=== PATIENT | female | born 1975 | race Caucasian/White ===

== ENCOUNTER 2019-09-18 12:58 | Outpatient (CLI) | payer OTHER, SELFPAY ==
[2019-09-18 13:13] LABS: Hematocrit 42.2 % (35.0-49.0); Hemoglobin 13.6 g/dL (12.0-15.0); Mean Corpuscular HGB Conc 32.2 g/dL (32.0-36.0); Mean Corpuscular Hemoglobin 28.9 pg (27.0-31.0); Mean Corpuscular Volume 89.8 fL (78.0-102.0); Mean Platelet Volume 10.2 fl (9.2-11.8); Platelet Count Result 224 K/mm3 (150-420); Red Cell Distribution Width 15.1 % (11.6-14.4); White Blood Count 8.8 K/mm3 (4.8-10.8)
[2019-09-18 13:25] LABS: Hemoglobin A1C 6.2 % (<5.7)
[2019-09-18 13:57] LABS: Alanine Aminotransferase 27 U/L (14-59); Albumin Level 3.1 g/dL (3.4-5.0); Alkaline Phosphatase 106 U/L (46-116); Anion Gap 16.2 mmol/L (7-16); Aspartate Amino Transferase 21 U/L (15-37); Bilirubin,Total 0.3 mg/dL (0.00-1.00); Blood Urea Nitrogen 16 mg/dL (7-18); Calcium 8.4 mg/dL (8.5-10.1); Carbon Dioxide 25 mmol/L (21-32); Chloride 106 mmol/L (98-108); Cholesterol 165 mg/dL (0-200); Estimated Glomerular Filt Rate > 60; Glucose 119 mg/dL (70-99); HDL Direct 54 mg/dL (40-60); LDL Cholesterol Calculated 96 mg/dL (<130); Osmolality Calculated 298 mOsm/kg (285-295); Potassium 4.2 mmol/L (3.5-5.1); Sodium 143 mmol/L (136-145); Total Protein 7.6 g/dL (6.4-8.2); Triglycerides 77 mg/dL (0-150)
[2019-09-18 14:13] LABS: Erythrocyte Sedimentation Rate 38 mm/hr (0-15)
[2019-09-21 12:02] LABS: Vitamin D 25 Hydroxy 28 ng/mL (30-100)
== END 2019-09-18 12:59 | disposition home or self-care (01) ==
LOC: CHSLAB 13:01
PROVIDERS: PCP Family Medicine; Visit Provider Family Medicine
DX: E78.5 Hyperlipidemia, unspecified (principal); E55.9 Vitamin D deficiency, unspecified; R53.83 Other fatigue; E03.9 Hypothyroidism, unspecified; M25.50 Pain in unspecified joint; I10 Essential (primary) hypertension; E11.9 Type 2 diabetes mellitus without complications
CPT/HCPCS: 36415; 80053; 80061; 82306; 83036; 84443; 85027; 85652

== ENCOUNTER 2023-01-08 23:16 | Emergency (ER) | payer MEDICARE, SELFPAY ==
[2023-01-08] VITALS (7 sets, daily range): BP systolic 95–129; BP diastolic 33–52; PULSE 86–88; RESP 22–23; O2SAT 96–100
--- NOTE | ~2023-01-08 | XR_ITS ---
Portable chest x-ray Comparison: 09/22/2018 Clinical History: Shortness of breath Findings: Mild pulmonary edema changes are present. No pleural effusion or pneumothorax. Cardiomedi astinal silhouette is stable. Bones and soft tissues are unremarkable. Impression: Mild pulmonary edema. Reviewed, dictated and finalized at [facility]. Impression: Mild pulmonary edema.
--- NOTE | 2023-01-08 23:20 | ECG_ITS ---
Measurements Intervals [place] Rate: 85 P: 100 NH: 191 QRS: -47 QRSD: 130 T: 12 QT: 366 QTc: 438 Interpretive Statements SINUS RHYTHM LEFT ANTERIOR FASCICULAR BLOCK [QRS AXIS <= -45, QR IN I, RS IN II] POSSIBLE ANTERIOR MYOCARDIAL INFARCTION , PROBABLY OLD [30 ms Q WAVE IN V3/V4, OR R < 0.2 mV IN V4] ABNORMAL ECG NO PREVIOUS ECG AVAILABLE FOR COMPARISON Electronically Signed On 01-13-2023 9:13:49 CDT by Moisés Meade M.D.
--- NOTE | 2023-01-08 23:29 | ED.GENADULT ---
HPI - General Adult General Chief complaint: Altered Mental Status Stated complaint: altered mental status Time Seen by Provider: 01/08/23 23:18 History of Present Illness HPI narrative: 47yo woman with extreme obesity, diabetes mellitus, hypertension, and most recently and significantly severe depression and, per EMS talking with pt's family, declining interest in her own medical care, brought by EMS to our ED critically ill. Pt has fallen several times in the last week. Family has been urging her to seek medical care but she declines. Numerous calls to EMS with pt declining to be transported each time so EMS know pt well at this point. Tonight, pt was confused, lethargic, had fallen again. EMS found a small puddle of blood underneath the patient but noted no actively bleeding skin site. Pt blood glucose in the 40s for which EMS gave D10. Glucose on arrival to ED is 60. Pt disoriented and unable to describe symptoms or if she is in any pain. Broad septic workup ordered. Additional dextrose fluids ordered. Radiology consulted and confirms that pt is both too heavy for our table (500 lb weight limit - pt is 523 pounds) and will not fit the aperture of the scanner. Callout to [facility] trauma center as pt is in need of workup for her numerous falls and encephalopathy and needs more staff and facility resources than we possess. Declined by [facility]. Callout to [facility] ED accepted by Dr. Saenz for time critical trauma. Related Data Home Medications Medication Instructions Recorded Confirmed bupropion HCl 150 mg 24 hr tablet, 150 mg PO QAM 11/08/20 01/09/23 extended release Allergies Allergy/AdvReac Type Severity Reaction Status Date / Time Sulfa (Sulfonamide Allergy Mild HIVES, Verified 01/08/23 23:58 Antibiotics) SWELLING sulfamethoxazole Allergy Mild HIVES, Verified 01/08/23 23:58 SWELLING sulfamethizole Allergy Unknown Hives Verified 01/08/23 23:58 trimethoprim Allergy Unknown Hives Verified 01/08/23 23:58 Review of Systems Review of Systems: ROS unobtainable: Yes unobtainable due to medical condition and unobtainable due to mental status PMFSH Past Medical History Medical History Anxiety Essential (primary) hypertension H/O adenomatous polyp of colon Hypertension associated with diabetes Hypothyroidism, unspecified Idiopathic peripheral neuropathy Irritable bowel syndrome with diarrhea Lymphedema of both lower extremities Magnesium deficiency Moderate major depression Morbid obesity Psoriasis Stasis dermatitis Type 2 diabetes mellitus without complications Vitamin B12 deficiency Vitamin D deficiency Family History Family History Mother Hypertension Sibling Hypertension Family history of congestive heart failure Other Family history of arthritis Social History Social History Smoking status: Never smoker Second hand tobacco smoke exposure: No Alcohol intake: never Substance use: never Substance use type: does not use Lack of Transportation: No Lack of Food: Never True Current Housing: I Have Housing Concerned About Future Housing: No Difficulty Paying Gas/Electric Bills: No Difficulty Paying for Meds: No Currently Unemployed: No Education: High School Diploma/GED Difficulty w/ Childcare or Family Care: No Gender identity (if verbalized by the patient): Female Spiritual care concerns: No Agree to blood products: Yes Exam Const: General: confusion and ill appearing Nutritional Appearance: obese Orientation/consciousness: No patient oriented x3 Limitations: altered mental status HENMT: Mouth: Yes dry mucous membranes Eyes: Conjunctivae: conjunctivae normal Pupils: Equal, round and reactive pupils present Other: pt arouses to voice but regards only br
[2023-01-08 23:36] LABS: Basophils Absolute Auto 0.03 K/mm3 (0.00-0.10); Basophils Percent Auto 0.3 % (0.0-1.0); Eosinophils Absolute Auto 0.02 K/mm3 (0.02-0.50); Eosinophils Percent Auto 0.2 % (1.0-6.0); Hematocrit 36.2 % (35.0-49.0); Hemoglobin 10.5 g/dL (12.0-15.0); Immature Granulocyte Absolute 0.07 K/mm3 (0.00-0.00); Immature Granulocyte Percent A 0.6 % (0.0-0.0); Lymphocytes Absolute Auto 0.83 K/mm3 (1.10-4.50); Mean Corpuscular Hemoglobin 25.1 pg (27.0-31.0); Mean Corpuscular Volume 86.6 fL (78.0-102.0); Mean Platelet Volume 10.4 fl (9.2-11.8); Monocytes Absolute Auto 0.81 K/mm3 (0.10-0.90); Monocytes Percent Auto 6.8 % (2.0-11.0); Neutrophils Absolute Auto 10.1 K/mm3 (1.7-7.2); Neutrophils Percent Auto 85.1 % (50.0-70.0); Nucleated Red Blood Cells Absolute Auto 0.02 K/mm3 (0.00-0.00); Nucleated Red Blood Cells Perc 0.2 % (0-0.0); Platelet Count Result 202 K/mm3 (150-420); Red Blood Count 4.18 M/mm3 (4.20-5.40); Red Cell Distribution Width 18.7 % (11.6-14.4); White Blood Count 11.9 K/mm3 (4.8-10.8)
[2023-01-08 23:50] LABS: Lactic Acid Reflex 0.9 mmol/L (0.4-2.0)
[2023-01-08 23:51] LABS: HCO3 ABG 24.1 mmol/L (23-29); Oxygen Content ABG 15.5 %vol (16.0-22.0); Oxygen Saturation ABG 93.9 % (95-97); Oxyhemoglobin 92.8 % (94-100); PCO2 ABG 64.9 mmHg (35-45); PO2 ABG 83.6 mmHg (80-90); Total Hemoglobin 11.8 g/dL (12.0-18.0); pH ABG 7.19 (7.35-7.45)
[2023-01-08 23:52] LABS: Device NASAL CANNULA; Modified Allen's Test Pass; Site Drawn RIGHT RADIAL
[2023-01-08 23:53] LABS: Alanine Aminotransferase 24 U/L (14-59); Albumin Level 2.5 g/dL (3.4-5.0); Alkaline Phosphatase 98 U/L (46-116); Anion Gap 7 mmol/L (8-16); Aspartate Amino Transferase 22 U/L (15-37); Bilirubin,Total 0.4 mg/dL (0.00-1.00); Blood Urea Nitrogen 65 mg/dL (7-18); Calcium 7.8 mg/dL (8.5-10.1); Carbon Dioxide 27 mmol/L (21-32); Chloride 104 mmol/L (98-108); Estimated CRCL calculation 22 ml/min; Estimated Glomerular Filt Rate 8; Glucose 60 mg/dL (70-99); Magnesium 2.7 mg/dL (1.8-2.4); NT Pro B Type Natriuretic Pept 1405 pg/mL (0-125); Osmolality Calculated 302 mOsm/kg (285-295); Potassium 5.2 mmol/L (3.5-5.1); Sodium 138 mmol/L (136-145); Total Protein 7.5 g/dL (6.4-8.2)
[2023-01-09] VITALS: PULSE 87; O2SAT 94
[2023-01-09 00:02] VITALS: BP 115/46; PULSE 86; RESP 22; O2SAT 96
[2023-01-09] MEDS: DEXTROSE 5% 1,000 ML 1,000 ML 100 ML IV CONT (00:09)
[2023-01-09] MEDS: SODIUM CHLORIDE 0.9% IV 1,000 ML 999 ML IV CONT (00:09)
[2023-01-09 00:16] VITALS: BP 106/78; PULSE 86; RESP 22; O2SAT 98
[2023-01-09 00:28] VITALS: BP 106/78; PULSE 89
[2023-01-09] MEDS: NOREPINEPHRINE 8 MG/D5W 250 ML 8 MG/250 ML BAG 9.38 MG IV CONT (00:28)
[2023-01-09 00:30] VITALS: PULSE 87; RESP 22; O2SAT 97
--- NOTE | 2023-01-09 00:34 | PC.NURSE ---
Pt mental status has improved. GCS of 14 at this time.
[2023-01-09] MEDS: cefTRIAXone 1 GM, LIDOCAINE HCL 1% LOCAL INJ 2.1 ML IM (00:36)
[2023-01-09] MEDS: DEXTROSE 50% 25 GM/50 ML SYRINGE IV PUSH (00:49)
[2023-01-09 01:00] VITALS: BP 113/55; PULSE 83; RESP 22; TEMP 36.4; O2SAT 95
--- NOTE | 2023-01-15 12:55 | PC.NURSE ---
Final blood culture reports x 2 show no growth after 5 days no change in plan of care.
[2023-01-21 17:26] LABS: Glucose Point of Care 52 mg/dl (65-105)
[2023-01-21 17:26] LABS: Glucose Point of Care 66 mg/dl (65-105)
== END 2023-01-09 01:00 | disposition short-term general hospital (02) ==
PROVIDERS: Emergency Provider Emergency Medicine
DX: E11.649 Type 2 diabetes mellitus with hypoglycemia without coma (principal); I95.9 Hypotension, unspecified; E86.0 Dehydration; R09.02 Hypoxemia; M54.50 Low back pain, unspecified; F32.A Depression, unspecified; I10 Essential (primary) hypertension; E03.9 Hypothyroidism, unspecified; E66.9 Obesity, unspecified; Z68.45 Body mass index [BMI] 70 or greater, adult; W19.XXXA Unspecified fall, initial encounter
CPT/HCPCS: 36415; 36600; 71045; 80053; 82805; 82948; 83605; 83735; 83880; 84145; 85025; 87040; 93005; 96365; 96372; 96375; 99291; J0696; J7030; J7070

== ENCOUNTER 2023-02-19 18:56 | Emergency (ER) | payer MEDICARE, SELFPAY ==
--- NOTE | ~2023-02-19 | XR_ITS ---
EXAMINATION: XR foot RT min 3V DATE: 02/19/2023 19:35 INDICATION: Right foot pain. TECHNIQUE: 3 views of right foot were obtained. COMPARISON: None. FINDINGS: Bone alignment is normal. No fracture. There is mild midfoot osteoarthritis. There are enth esophytes at the posterior and plantar aspects of calcaneal tuberosity. There is soft tissue swelling of the foot and lower leg. IMPRESSION: 1. Mild midfoot osteoarthritis. Reviewed, dictated and finalized at location E.
[2023-02-19 19:14] VITALS: BP 139/60; PULSE 80; RESP 18; TEMP 36.8; O2SAT 94
--- NOTE | 2023-02-19 19:21 | ED.EXTPRO ---
HPI - Extremity Problem General Chief complaint: Extremity Problem,Nontraumatic Stated complaint: RLE SWELLING AND PAIN Time Seen by Provider: 02/19/23 19:11 Source: patient and EMS Mode of arrival: EMS Limitations: no limitations History of Present Illness HPI Narrative: 48 years old white female came from nursing facility with pain at the bottom of the right foot started few days ago. The staff at the nursing facility were anxious about the possibility of blood clot. Patient denies any fever, chills, nausea, vomiting, shortness of breath, chest pain. History of lymphedema bilaterally and morbid obesity. Related Data Home Medications Medication Instructions Recorded Confirmed bupropion HCl 150 mg 24 hr tablet, 150 mg PO QAM 11/08/20 01/21/23 extended release Allergies Allergy/AdvReac Type Severity Reaction Status Date / Time Sulfa (Sulfonamide Allergy Mild HIVES, Verified 01/08/23 23:58 Antibiotics) SWELLING sulfamethoxazole Allergy Mild HIVES, Verified 01/08/23 23:58 SWELLING sulfamethizole Allergy Unknown Hives Verified 01/08/23 23:58 trimethoprim Allergy Unknown Hives Verified 01/08/23 23:58 Review of Systems Review of Systems: All systems reviewed & are unremarkable except as noted in HPI and below PMFSH Past Medical History Medical History Anxiety Essential (primary) hypertension H/O adenomatous polyp of colon Hypertension associated with diabetes Hypothyroidism, unspecified Idiopathic peripheral neuropathy Irritable bowel syndrome with diarrhea Lymphedema of both lower extremities Magnesium deficiency Moderate major depression Morbid obesity Psoriasis Stasis dermatitis Type 2 diabetes mellitus without complications Vitamin B12 deficiency Vitamin D deficiency Family History Family History Mother Hypertension Sibling Hypertension Family history of congestive heart failure Other Family history of arthritis Social History Social History Smoking status: Never smoker Second hand tobacco smoke exposure: No Alcohol intake: never Substance use: never Substance use type: does not use Lack of Transportation: No Lack of Food: Never True Current Housing: I Have Housing Concerned About Future Housing: No Difficulty Paying Gas/Electric Bills: No Difficulty Paying for Meds: No Currently Unemployed: No Education: High School Diploma/GED Difficulty w/ Childcare or Family Care: No Gender identity (if verbalized by the patient): Female Spiritual care concerns: No Agree to blood products: Yes Exam Narrative: General appearance: Well-developed, well-nourished, morbidly obese Skin: Normal color, chronic stasis dermatitis of the lower extremity bilaterally distally, no discharge. Extensive lymphedema of the lower extremity bilaterally Chest and respiratory: Airway patent, no respiratory distress, no accessory muscle use Heart: Regular rate/rhythm Vascular: Normal peripheral pulses, normal capillary refill. Musculoskeletal: Normal range of motion, right foot showed 2 spots of bruises, 2 x 2 cm, 3 x 2 cm at the bottom, tender to touch, no fluctuation, no discharge, dark coloration. Left foot showed no bruises at the bottom. Neurologic: Alert and oriented ?3, [place] is normal as tested, no gross motor deficit Course Reevaluation(s) Reevaluation #1: No new changes compared to on arrival to the ED Date: 02/19/23 Time: 19:28 Vital Signs Vital signs: Vital Signs Temperature 36.8 C 02/19/23 19:14 Pulse Rate 80
== END 2023-02-19 22:29 ==
PROVIDERS: Emergency Provider Emergency Medicine; PCP Family Medicine
DX: M79.671 Pain in right foot (principal); I87.2 Venous insufficiency (chronic) (peripheral); I89.0 Lymphedema, not elsewhere classified; I15.2 Hypertension secondary to endocrine disorders; E03.9 Hypothyroidism, unspecified; E11.42 Type 2 diabetes mellitus with diabetic polyneuropathy; E66.01 Morbid (severe) obesity due to excess calories; E53.8 Deficiency of other specified B group vitamins; E55.9 Vitamin D deficiency, unspecified; E61.2 Magnesium deficiency; K58.0 Irritable bowel syndrome with diarrhea; F41.9 Anxiety disorder, unspecified; F32.9 Major depressive disorder, single episode, unspecified; M19.071 Primary osteoarthritis, right ankle and foot; Z86.010 Personal history of colon polyps
CPT/HCPCS: 73630; 99283

== ENCOUNTER 2023-03-02 12:42 | Outpatient (NON) | payer MEDICARE, SELFPAY ==
[2023-03-02 13:14] LABS: Basophils Absolute Auto 0.03 K/mm3 (0.00-0.10); Basophils Percent Auto 0.5 % (0.0-1.0); Eosinophils Absolute Auto 0.12 K/mm3 (0.02-0.50); Eosinophils Percent Auto 2.1 % (1.0-6.0); Hematocrit 33.7 % (35.0-49.0); Hemoglobin 9.7 g/dL (12.0-15.0); Immature Granulocyte Absolute 0.01 K/mm3 (0.00-0.00); Immature Granulocyte Percent A 0.2 % (0.0-0.0); Lymphocytes Absolute Auto 1.04 K/mm3 (1.10-4.50); Lymphocytes Percent Auto 18.2 % (18.0-42.0); Mean Corpuscular HGB Conc 28.8 g/dL (32.0-36.0); Mean Corpuscular Hemoglobin 25.6 pg (27.0-31.0); Mean Corpuscular Volume 88.9 fL (78.0-102.0); Mean Platelet Volume 9.9 fl (9.2-11.8); Monocytes Absolute Auto 0.46 K/mm3 (0.10-0.90); Monocytes Percent Auto 8.1 % (2.0-11.0); Neutrophils Percent Auto 70.9 % (50.0-70.0); Platelet Count Result 166 K/mm3 (150-420); Red Blood Count 3.79 M/mm3 (4.20-5.40); Red Cell Distribution Width 20.2 % (11.6-14.4); White Blood Count 5.7 K/mm3 (4.8-10.8)
[2023-03-02 13:15] LABS: Bilirubin Urine Negative (Negative); Blood Urine Negative (Negative); Color Urine Light Yellow (Yellow); Glucose Urine UA Negative (Negative); Ketones Urine Negative (Negative); Leukocyte Esterase Ur 1+ LEU/UL (Negative); Nitrate Urine Negative (Negative); Protein Urine Trace (Negative); Urobilinogen Urine 0.2 mg/dL (0.2-1.0)
[2023-03-02 13:29] LABS: Alanine Aminotransferase 16 U/L (14-59); Albumin Level 2.5 g/dL (3.4-5.0); Alkaline Phosphatase 89 U/L (46-116); Anion Gap 5 mmol/L (8-16); Aspartate Amino Transferase 14 U/L (15-37); Bilirubin,Total 0.7 mg/dL (0.00-1.00); Blood Urea Nitrogen 22 mg/dL (7-18); Calcium 8.9 mg/dL (8.5-10.1); Carbon Dioxide 35 mmol/L (21-32); Chloride 102 mmol/L (98-108); Estimated Glomerular Filt Rate 48; Glucose 147 mg/dL (70-99); Osmolality Calculated 300 mOsm/kg (285-295); Potassium 3.7 mmol/L (3.5-5.1); Sodium 142 mmol/L (136-145); Total Protein 7.7 g/dL (6.4-8.2)
[2023-03-02 13:36] LABS: Add Urine Microscopic? YES; Amorphous Sediment Urine Heavy; Appearance Urine Cloudy (Clear); Bacteria Urine 1+ /hpf; Squamous Epithelial Cell Urine Few /hpf (Few); WBC Clumps Urine Present /hpf
[2023-03-02 13:37] LABS: Budding Yeast Urine Present /hpf; Hyaline Casts Urine 50+ /lpf; Mucus Urine Heavy /lpf
== END 2023-03-02 12:43 | disposition home or self-care (01) ==
LOC: CHSHH 13:03
PROVIDERS: Visit Provider Family Medicine
DX: E11.9 Type 2 diabetes mellitus without complications (principal); D64.9 Anemia, unspecified; N39.0 Urinary tract infection, site not specified
CPT/HCPCS: 36415; 80053; 81001; 85025; 87086; 87088

== ENCOUNTER 2023-03-11 13:10 | Outpatient (CLI) | payer MEDICARE, SELFPAY ==
[2023-03-11 14:01] LABS: Anion Gap 5 mmol/L (8-16); Blood Urea Nitrogen 15 mg/dL (7-18); Calcium 8.8 mg/dL (8.5-10.1); Carbon Dioxide 35 mmol/L (21-32); Chloride 102 mmol/L (98-108); Estimated Glomerular Filt Rate 48; Glucose 99 mg/dL (70-99); Osmolality Calculated 294 mOsm/kg (285-295); Potassium 3.5 mmol/L (3.5-5.1); Sodium 142 mmol/L (136-145)
== END 2023-03-11 13:11 | disposition home or self-care (01) ==
LOC: CHSLAB 13:13 → CHSHH 13:14
PROVIDERS: PCP Family Medicine; Visit Provider Family Medicine
DX: N18.30 Chronic kidney disease, stage 3 unspecified (principal)
CPT/HCPCS: 36415; 80048

== ENCOUNTER 2023-03-14 14:43 | Inpatient (IN) | payer MEDICARE, SELFPAY ==
[2023-03-14] VITALS (39 sets, daily range): BP systolic 128–178; BP diastolic 51–85; PULSE 77–90; RESP 15–36; TEMP 36.6; O2SAT 79–100
--- NOTE | ~2023-03-14 | XR_ITS ---
EXAMINATION: XR chest 1V portable DATE: 03/14/2023 16:08 INDICATION: Edema. TECHNIQUE: A single frontal view of the chest was obtained. COMPARISON: Chest single view 01/08/2023, CT abdomen and pelvis 06/14/2016 FINDINGS: Sensitivity is decreased by obesity. There is a diffuse interstitial pattern, consistent mi ld pulmonary edema. There is no pneumonia, pleural effusion, or pneumothorax. Cardiomegaly is noted. IMPRESSION: 1. Mild pulmonary edema. 2. Cardiomegaly. Reviewed, dictated and finalized at location B.
[2023-03-14 16:05] LABS: Basophils Percent Auto 0.4 % (0.2-1.2); Eosinophils Absolute Auto 0.1 K/mm3 (0-0.3); Eosinophils Percent Auto 1.6 % (0-4.4); Hematocrit 33.8 % (37.0-47.0); Hemoglobin 9.5 g/dL (12.0-15.0); Immature Granulocyte Absolute 0.02 K/mm3 (0.00-0.031); Immature Granulocyte Percent A 0.4 % (0-0.5); Lymphocytes Absolute Auto 1.07 K/mm3 (0.9-3.2); Lymphocytes Percent Auto 21.4 % (18.3-44.2); Mean Corpuscular HGB Conc 28.1 g/dl (32-36); Mean Corpuscular Hemoglobin 24.5 pg (26-34); Mean Corpuscular Volume 87.3 fl (80-100); Monocytes Absolute Auto 0.5 K/mm3 (0.1-0.6); Monocytes Percent Auto 9.4 % (2.6-8.5); Neutrophils Absolute Auto 3.3 K/mm3 (1.3-6.7); Neutrophils Percent Auto 66.8 % (45.5-73.1); Platelet Count Result 175 k/mm3 (150-375); Red Blood Count 3.87 M/mm3 (4.2-5.4); Red Cell Distribution Width 20.2 % (11.5-14.5)
[2023-03-14 16:13] LABS: Alanine Aminotransferase 14 U/L (6-35); Albumin Level 3.3 g/dL (3.5-5.1); Alkaline Phosphatase 78 U/L (38-126); Anion Gap 3 mmol/L (8-16); Aspartate Amino Transferase 26 U/L (14-36); Bilirubin,Total 0.8 mg/dL (0.2-1.3); Blood Urea Nitrogen 19 mg/dL (7-17); Calcium 8.2 mg/dL (8.4-10.2); Carbon Dioxide 35 mmol/L (22-30); Chloride 97 mmol/L (98-107); Estimated CRCL calculation 129 ml/min; Estimated Glomerular Filt Rate > 60; Glucose 150 mg/dL (65-110); Potassium 3.5 mmol/L (3.4-5.0); Sodium 135 mmol/L (137-145)
[2023-03-14 16:15] LABS: INR 1.1; Prothrombin Time 14.6 Seconds (11.1-14.7)
[2023-03-14 16:16] LABS: Hypochromasia 2+ (NORMAL); Ovalocytes 1+ (NORMAL); Partial Thromboplastin Time 32.2 SECONDS (22.3-36.8); Platelet Estimate Adequate (Adequate); Schistocytes None Seen (NORMAL)
[2023-03-14] MEDS: FUROSEMIDE INJ 40 MG/4 ML VIAL IV PUSH (16:40)
[2023-03-14 16:51] LABS: Lactic Acid Reflex 1.1 mmol/L (0.7-2.0)
[2023-03-14 16:59] LABS: NT Pro B Type Natriuretic Pept 891 pg/mL (19.9-100)
--- NOTE | 2023-03-14 17:06 | ED.GENADULT ---
HPI - General Adult General Chief complaint: Unspecified <Moent Berry PA-C - Last Filed: 03/14/23 17:55> Stated complaint: mult c/o <ELIAS Lawrence Last Filed: 03/14/23 17:55> Time Seen by Provider: 03/14/23 15:45 <ELIAS Lawrence Last Filed: 03/14/23 17:55> Source: patient <ELIAS Lawrence Last Filed: 03/14/23 17:55> Mode of arrival: EMS <ELIAS Lawrence Last Filed: 03/14/23 17:55> Limitations: no limitations <ELIAS Lawrence Last Filed: 03/14/23 17:55> History of Present Illness HPI narrative: This is a 48 year old female that presents to the ER for swelling in her lower legs. Worsening over the last couple of days. Associated with redness. Reports wounds on her pannus. Reports shortness of breath when lying flat. Her home health nurse was concerned and sent her in for evaluation. Denies fever, or chest pain. <ELIAS Lawrence Last Filed: 03/14/23 17:55> Related Data Home medications: Home Medications Medication Instructions Recorded Confirmed bupropion HCl 150 mg 24 hr tablet, 150 mg PO QAM 11/08/20 03/03/23 extended release <ELIAS Lawrence Last Filed: 03/14/23 17:55> Allergies/adverse reactions: Allergies Allergy/AdvReac Type Severity Reaction Status Date / Time Sulfa (Sulfonamide Allergy Mild HIVES, Verified 03/14/23 14:58 Antibiotics) SWELLING sulfamethoxazole Allergy Mild HIVES, Verified 03/14/23 14:58 SWELLING sulfamethizole Allergy Unknown Hives Verified 03/14/23 14:58 trimethoprim Allergy Unknown Hives Verified 03/14/23 14:58 <ELIAS Lawrence Last Filed: 03/14/23 17:55> Review of Systems Review of Systems: CONSTITUTIONAL: Denies fever CARDIOVASCULAR: Reports edema. Denies chest pain RESPIRATORY: Reports dyspnea. SKIN: Reports erythema <Monet Berry PA-C - Last Filed: 03/14/23 17:55> All systems reviewed & are unremarkable except as noted in HPI and below <Monet Berry PA-C - Last Filed: 03/14/23 17:55> [facility] Past Medical History Medical History: Medical History (Updated 03/14/23 @ 17:44 by Monet Berry PA-C) Anxiety Essential (primary) hypertension H/O adenomatous polyp of colon Hypertension associated with diabetes Hypothyroidism, unspecified Idiopathic peripheral neuropathy Irritable bowel syndrome with diarrhea Lymphedema of both lower extremities Magnesium deficiency Moderate major depression Morbid obesity Psoriasis Stasis dermatitis Type 2 diabetes mellitus without complications Vitamin B12 deficiency Vitamin D deficiency <Monet Berry PA-C - Last Filed: 03/14/23 17:55> Surgical History Surgical History: Surgical History (Updated 03/14/23 @ 17:53 by Olga Mtz NP) H/O section History of tonsillectomy and adenoidectomy Hx of cholecystectomy <Monet Berry PA-C - Last Filed: 03/14/23 17:55> Family History Family History: Family History Mother Hypertension Sibling Hypertension Family history of congestive heart failure Other Family history of arthritis <Monet Berry PA-C - Last Filed: 03/14/23 17:55> Social History Social History: Social History (Updated 03/14/23 @ 17:54 by Olga Mtz NP) Social History: lives alone and has one child single disabled code status full code Smoking status: Never smoker Second hand tobacco smoke exposure: No Alcohol intake: never Substance use: never Substance use type: does not use Lack of Transportation: No Lack of Food: Never True Current Housing: I Have Housing Concerned About Future Housing: No Difficulty Paying Gas/Electric Bills: No Difficulty Paying for Meds: No Currently Unemployed: No Education: High School Diploma/GED Difficulty w/ Childcare or Family Care: No Gender identity (if verbalized by the patient): Female [place]
[2023-03-14] MEDS: ceFAZolin 1 GM/NS 50 ML 1 GM/50 ML BAG IVPB (17:23)
--- NOTE | 2023-03-14 17:48 | ECG_ITS ---
Measurements Intervals [place] Rate: 81 P: 63 MT: 183 QRS: -42 QRSD: 105 T: 75 QT: 389 QTc: 452 Interpretive Statements SINUS RHYTHM MARKED LEFT AXIS DEVIATION [QRS AXIS < -30] PATTERN CONSISTENT WITH PULMONARY DISEASE INCOMPLETE RIGHT BUNDLE BRANCH BLOCK [90+ ms QRS DURATION, TERMINAL R IN V1/V2, 40+ ms S IN I/aVL/V4/V5/V6] COMPARED TO ECG 01/08/2023 23:42:18 NO SIGNIFICANT CHANGE Electronically Signed On 03-15-2023 8:51:16 CDT by Deann Grullon M.D.
--- NOTE | 2023-03-14 17:51 | PM.IMHP ---
H&P: HPI History of Present Illness Date/Time: 03/14/23 17:51 Chief Complaint: Shortness of breath and edema to lower extremities. Narrative: This is a 48-year-old obese patient who is 235.5 kg. The patient has a history of congestive heart failure. The patient also stated she has lymphedema. The patient came to the emergency room with complaints of swelling to her lower extremities. The swelling has been worse over the last couple days. The patient also has redness to lower extremities and under her pannus. The patient was found have multiple open sores under her large pannus. The home health nurse was concerned about the patient and center to the emergency room to be further evaluated. The patient denies any fever chills or any cough or any chest pain. She has no white count. Her H&H is 9.5 and 33.8 which is her baseline. Her BNP is 891. Chest x-ray was read as mild pulmonary edema. Cardiomegaly. The patient was started on Ancef and given IV Lasix. The patient is being admitted for observation status on the date of service of 03/14/2023. Review of Systems Review of Systems: All systems reviewed & are unremarkable except as noted in HPI and below Constitutional: Constitutional: Reports as per HPI and Reports no additional constitutional complaints Eyes: Eyes: Reports as per HPI and Reports no additional eye complaints ENT: Reports system reviewed and no additional complaints, except as documented and Reports Normal hearing present Cardiovascular: Cardiovascular: Reports no additional cardiovascular complaints Respiratory: Respiratory: Reports no additional respiratory complaints and Reports no additional respiratory complaints Gastrointestinal: Gastrointestinal: Reports as per HPI and Reports no additional gastrointestinal complaints Musculoskeletal: Musculoskeletal: Reports no additional musculoskeletal complaints Integumentary/Breasts: Skin/Breast: Reports system reviewed and no additional complaints, except as docu and Reports as per HPI Neurologic: Reports system reviewed and no additional complaints, except as documented, Reports as per HPI and Reports Normal hearing present Psychiatric: Psychiatric: Reports no additional psychiatric complaints and Reports as per HPI Endocrine: Endocrine: Reports no additional endocrine complaints Hematologic/Lymphatic: Hematologic/Lymphatic: Reports no additional hematologic/lymphatic complaints Allergic/Immunologic: Allergic/Immunologic: Reports no additional allergic/immunologic complaints [facility] Past Medical History Medical History (Updated 03/15/23 @ 00:43 by Olga Mtz NP) Anxiety CHF (congestive heart failure), NYHA class I Essential (primary) hypertension H/O adenomatous polyp of colon Hypertension associated with diabetes Hypothyroidism, unspecified Idiopathic peripheral neuropathy Irritable bowel syndrome with diarrhea Lymphedema of both lower extremities Magnesium deficiency Moderate major depression Morbid obesity Psoriasis Stasis dermatitis Type 2 diabetes mellitus without complications Vitamin B12 deficiency Vitamin D deficiency Surgical History Surgical History (Updated 03/15/23 @ 00:33 by Olga Mtz NP) H/O arthroscopic knee surgery H/O section X1 H/O dilation and curettage History of tonsillectomy and adenoidectomy Hx of cholecystectomy Family History Family History Mother Hypertension Sibling Hypertension Family history of congestive heart failure Other Family history of arthritis Social History Social History (Updated 03/15/23 @ 00:34 by Olga Mtz NP) Social History: She lives alone and has one child. She is single and disabled. code status full code Smoking status: Never smoker Second hand tobacco smoke exposure: No Alcohol intake: never Substance use: never Substance use type: does not use Lack of Transportation: YES
--- NOTE | 2023-03-14 20:11 | PC.NURSE ---
Was preparing to transport patient to the floor, was informed that the bed was not ready. This nurse went to check on patient and patients abd is reaching both sides of the railing on the stretcher causing indentation. Recommend bariatric bed for admission. assembler knife and supervisor polishing notified.
--- NOTE | 2023-03-14 21:28 | ADMGEN ---
This patient, Peg Nicole, was admitted to 3 [facility] Surg Room 319-01. Patient/family oriented to hospital policies and general routines including ID bracelet, bed and alarms, visiting hours, pain management, procedures, bathroom and other care routines, personal items, smoking policy, room service/diet, and visiting hours. Information on how to activate the Rapid Response Team has been discussed. Patient/Family are encouraged to report perceived risks to care and to ask questions if they do not understand what they are told or what they should do.
[2023-03-15] VITALS (8 sets, daily range): BP systolic 117–139; BP diastolic 53–66; PULSE 65–89; RESP 20–22; TEMP 36.5–37; O2SAT 92–100; BMI 96.4
--- NOTE | 2023-03-15 | ECHO_ITS ---
Patient Info Name: Peg Nicole Age: 48 years : 1975 Gender: Female Ht: 62 in Wt: 519 lbs BSA: 3.40 m2 HR: 83 bpm BP: 139 / 53 mmHg Heart Rhythm: Sinus Rhythm Technical Quality: Fair Exam Date: 03/15/2023 8:46 AM Exam Location: [facility] Pulmonary Patient Status: Outpatient Admit Date: 03/14/2023 Staff Ordering Physician: Olga Mtz NP Ortho Assistant: Tonie Washington RDCS Attending Provider: Andre Luque MD Referring Physician: Bibi HUSSEIN; Exam Type: CA echo dop color flow w con Study Info Indications - fluid overvolad Complete two-dimensional, color flow and Doppler transthoracic echocardiogram is performed with contrast to opacify the left ventricle and to improve the deliniation of the left ventricle endocardial borders. Summary 1. Normal left ventricular size with mild concentric hypertrophy. Good systolic function of all segments with ejection fraction 60-65%. Normal diastolic function. 2. Right ventricle is not well visualized but appears mildly enlarged. Mildly hypokinetic. 3. Left atrial chamber dimension is mildly enlarged. 4. No significant valve disease. 5. Pulmonary artery pressure cannot be reliably estimated with this study. 6. Technically difficult study, definity echo contrast used. Left Ventricle Left ventricular chamber dimension is normal. Left ventricular systolic function is normal, estimated at 60-65%. There is mildly increased left ventricular wall thickness. Left ventricular septal wall motion is normal. The left ventricular diastolic function is normal. Right Ventricle Right ventricular chamber dimension is mildly enlarged. Right ventricular systolic function is normal. Left Atria Left atrial chamber dimension is mildly enlarged. Right Atria Right atrial chamber dimension is normal. Aortic Valve The aortic valve is trileaflet. There is no aortic valve sclerosis. There is no aortic valve stenosis. There is no aortic valve regurgitation. Pulmonic Valve The pulmonic valve is normal. There is no pulmonic valve stenosis. There is no pulmonic regurgitation. Mitral Valve The mitral valve has normal leaflets. There is no mitral valve stenosis. There is no mitral valve regurgitation. Tricuspid Valve The tricuspid valve leaflets are normal. There is no significant tricuspid valve stenosis. There is trace tricuspid valve regurgitation. No pulmonary hypertension, estimated pulmonary arterial systolic pressure is Empty. Pericardium/Pleural The pericardium appears normal. There is no pericardial effusion. Inferior Vena Cava Normal inferior vena cava with >50% collapse upon inspiration consistent with Empty right atrial pressure, Empty. Aorta The aortic root size at the sinus of Valsalva is normal. The prox ascending aorta size is normal. Left Ventricular Outflow Tract Name Value Normal LVOT 2D LVOT Diameter 2.09 cm LVOT Doppler LVOT Peak Gradient 5 mmHg LVOT Mean Gradient 3 mmHg LVOT VTI 26.41 cm LVOT VTI/AV VTI Ratio 0.66 LVOT Stroke Volume 90.83 ml LVOT CO
[2023-03-15] MEDS: CEFEPIME 2 GM/NS 50 ML 2 GM/50 ML BAG IVPB ×2 (03:04→14:21)
[2023-03-15] MEDS: VANCOMYCIN 1,250 MG/NS 250 ML 1,250 MG/250 ML BAG 166.67 MG IVPB ×2 (03:52→05:46)
[2023-03-15] MEDS: SODIUM CHLORIDE 0.9% IV 500 ML 30 ML (03:52)
[2023-03-15] MEDS: ACETAMINOPHEN 325 MG TABLET 650 MG PO ×2 (05:46→14:21)
[2023-03-15] MEDS: LEVOTHYROXINE SODIUM 75 MCG TABLET BY MOUTH (05:46)
[2023-03-15 06:55] LABS: Basophils Percent Auto 0.4 % (0.2-1.2); Eosinophils Absolute Auto 0.1 K/mm3 (0-0.3); Eosinophils Percent Auto 1.6 % (0-4.4); Hematocrit 33.3 % (37.0-47.0); Immature Granulocyte Absolute 0.02 K/mm3 (0.00-0.031); Immature Granulocyte Percent A 0.4 % (0-0.5); Lymphocytes Absolute Auto 1.27 K/mm3 (0.9-3.2); Lymphocytes Percent Auto 25.4 % (18.3-44.2); Mean Corpuscular Hemoglobin 24.1 pg (26-34); Mean Platelet Volume 10.1 fl (7.4-10.4); Monocytes Absolute Auto 0.5 K/mm3 (0.1-0.6); Neutrophils Absolute Auto 3.1 K/mm3 (1.3-6.7); Neutrophils Percent Auto 62.2 % (45.5-73.1); Platelet Count Result 172 k/mm3 (150-375); Red Blood Count 3.74 M/mm3 (4.2-5.4); Red Cell Distribution Width 20.1 % (11.5-14.5)
[2023-03-15 07:04] LABS: Alanine Aminotransferase 11 U/L (6-35); Albumin Level 3.2 g/dL (3.5-5.1); Alkaline Phosphatase 70 U/L (38-126); Anion Gap 2 mmol/L (8-16); Aspartate Amino Transferase 23 U/L (14-36); Bilirubin,Total 0.7 mg/dL (0.2-1.3); Blood Urea Nitrogen 17 mg/dL (7-17); Carbon Dioxide 35 mmol/L (22-30); Chloride 97 mmol/L (98-107); Estimated CRCL calculation 118 ml/min; Estimated Glomerular Filt Rate 59; Glucose 100 mg/dL (65-110); Magnesium 2.2 mg/dL (1.6-2.3); Potassium 3.6 mmol/L (3.4-5.0); Sodium 134 mmol/L (137-145)
[2023-03-15 07:31] LABS: Hemoglobin A1C 6.5 % (<5.7)
[2023-03-15 07:33] LABS: Platelet Estimate Adequate (Adequate)
[2023-03-15 07:34] LABS: Hypochromasia 2+ (NORMAL); Poikilocytosis 1+ (NORMAL); Schistocytes None Seen (NORMAL)
[2023-03-15 07:34] LABS: Glucose Point of Care 97 mg/dl (65-105)
[2023-03-15] MEDS: metroNIDAZOLE 500 MG/ISO 100ML 500 MG/100 ML BAG 100 MG IVPB ×3 (07:49→22:21)
[2023-03-15] MEDS: PERFLUTREN LIPID MICROSPHERES 1.5 ML VIAL DILUTED TO 10 ML TOTAL VOLUME IV PUSH (08:30)
[2023-03-15] MEDS: FUROSEMIDE INJ 40 MG/4 ML VIAL IV PUSH (09:58)
[2023-03-15] MEDS: SPIRONOLACTONE 25 MG TABLET PO (09:58)
[2023-03-15] MEDS: GABAPENTIN 300 MG CAPSULE 900 MG PO (09:58)
[2023-03-15] MEDS: GLIMEPIRIDE 1 MG TABLET PO (09:59)
[2023-03-15] MEDS: carvediloL 12.5 MG TABLET PO ×2 (09:59→20:50)
[2023-03-15] MEDS: TOLNAFTATE 1% POWDER 45 GM BTL 1 APPLIC TOPICAL ×3 (09:59→17:31)
[2023-03-15] MEDS: lamoTRIgine 100 MG TABLET PO (09:59)
[2023-03-15] MEDS: ENOXAPARIN 40 MG/0.4 ML SYRINGE SUB-Q (09:59)
[2023-03-15 11:57] LABS: Glucose Point of Care 128 mg/dl (65-105)
[2023-03-15 16:26] LABS: Glucose Point of Care 104 mg/dl (65-105)
--- NOTE | 2023-03-15 17:18 | PM.IMPN ---
Progress Note: A&P Assessment and Plan (1) CHF (congestive heart failure), NYHA class I: Code(s): I50.9 - Heart failure, unspecified Status: Acute Assessment and Plan: BNP only 840 but CXR consistent with pulmonary edema and she has O2 requirement. Patient with acute on chronic CHF. Probably right-sided with hypokinetic right ventricle. Her EF is 60-65% with normal diastolic function by echocardiogram today. Continue IV Lasix. Continue Aldactone. Monitor I/O's (2) Cellulitis: Qualifiers: Site of cellulitis: trunk Site of cellulitis of trunk: abdominal wall Qualified Code(s): L03.311 - Cellulitis of abdominal wall Code(s): L03.90 - Cellulitis, unspecified Status: Acute Assessment and Plan: Initially felt to have cellulitis on admission and so started on cefepime, Flagyl and vancomycin. BCx NGTD. Wound culture pending. It was reported the patient has multiple ulcerated areas under her pannus. Continue IV antibiotics. Wound care consult. (3) Anemia: Code(s): D64.9 - Anemia, unspecified Status: Acute Assessment and Plan: Hgb low in the 9 range. Hgb normal in September. Check iron studies, B12. Monitor and transfuse as needed (4) Type 2 diabetes mellitus without complications: Code(s): E11.9 - Type 2 diabetes mellitus without complications Status: Acute Assessment and Plan: A1c 6.5. The patient's blood glucose was reviewed on 03/15 Glucose remains well controlled. Continue AccuCheks covering with sliding scale. Hypoglycemia protocol available as needed. Continue to monitor (5) Essential (primary) hypertension: Code(s): I10 - Essential (primary) hypertension Status: Acute Assessment and Plan: Patient's blood pressure was reviewed on 03/15 Blood pressure remains reasonably well controlled. Will continue to monitor (6) Hypothyroidism, unspecified: Code(s): E03.9 - Hypothyroidism, unspecified Status: Acute Assessment and Plan: TSH normal. Continue with levothyroxine (7) Moderate major depression: Code(s): F32.1 - Major depressive disorder, single episode, moderate Status: Acute Assessment and Plan: Mood stable. continue with Lamictal and Trintellix Plan DVT Prophylaxis - Lovenox Code Status - Full Subjective Date/time seen: 03/15/23 17:18 Interval history: 48yo female with CHF, severe LE lymph edema and morbid obeisty here for SOB. Patient slept poorly last night related to anxiety. She does not wear oxygen at home. She has chronic lymphedema and states that she is ?in and out of [facility]? frequently. Exam Narrative: AF 98.3 118/66 89 20 94% 2L Gen - NARD Chest -lungs clear anteriorly. CV - RRR with distant S1/S2. Abd -soft. Indurated edema noted in the lower part of the pannus with pitting. Massively obese. Pannus lays upon bilateral midthigh. Ext -3+ + bilateral lower extremity pitting pedal edema. Psych - Nml mood and affect Skin -small palm size denuded area noted in the left medial high ankle area without open wound. Objective Data Vital Signs Vital Signs: Vital Signs - 24 hr 03/14/23 17:30 03/14/23 17:31 03/14/23 17:45 Temperature Pulse Rate 87 88 83 Respiratory Rate 26 H 24 H 23 H Blood Pressure 158/61 H Pulse Oximetry 95 97 98 Oxygen Delivery Oxygen Flow Rate 03/14/23 17:46 03/14/23 18:00 03/14/23 18:01 Temperature Pulse Rate 87 80 82 Respiratory Rate 15 21 H 18 Blood Pressure 142/51 H 133/76 Pulse Oximetry 99 100 100 Oxygen Delivery Oxygen Flow Rate 03/14/23 19:00 03/14/23 19:01 03/14/23 19:15 Temperature Pulse Rate 86 81 80 Respiratory Rate 20 16 22 H Blood Pressure 152/68 H Pulse Oximetry 93 98 98 Oxygen Delivery Oxygen Flow Rate 03/14/23 19:16 03/14/23 19:30 03/14/23 19:31 Temperature Pulse Rate 83 87 90 Respiratory Rate 19 24 H 25
[2023-03-15 20:47] LABS: Glucose Point of Care 118 mg/dl (65-105)
[2023-03-16] VITALS (7 sets, daily range): BP systolic 121–136; BP diastolic 49–62; PULSE 88–104; RESP 20–22; TEMP 36.7–37.4; O2SAT 89–99
[2023-03-16] MEDS: CEFEPIME 2 GM/NS 50 ML 2 GM/50 ML BAG IVPB ×2 (02:02→13:12)
[2023-03-16] MEDS: metroNIDAZOLE 500 MG/ISO 100ML 500 MG/100 ML BAG 100 MG IVPB ×3 (05:31→21:37)
[2023-03-16] MEDS: LEVOTHYROXINE SODIUM 75 MCG TABLET BY MOUTH (05:31)
[2023-03-16 06:34] LABS: Basophils Percent Auto 0.7 % (0.2-1.2); Eosinophils Absolute Auto 0.1 K/mm3 (0-0.3); Eosinophils Percent Auto 2.2 % (0-4.4); Hematocrit 34.8 % (37.0-47.0); Hemoglobin 9.4 g/dL (12.0-15.0); Immature Granulocyte Absolute 0.02 K/mm3 (0.00-0.031); Immature Granulocyte Percent A 0.4 % (0-0.5); Lymphocytes Absolute Auto 1.05 K/mm3 (0.9-3.2); Mean Corpuscular Hemoglobin 24.7 pg (26-34); Mean Corpuscular Volume 91.3 fl (80-100); Mean Platelet Volume 9.8 fl (7.4-10.4); Monocytes Absolute Auto 0.6 K/mm3 (0.1-0.6); Neutrophils Absolute Auto 3.7 K/mm3 (1.3-6.7); Neutrophils Percent Auto 66.7 % (45.5-73.1); Platelet Count Result 171 k/mm3 (150-375); Red Blood Count 3.81 M/mm3 (4.2-5.4); Red Cell Distribution Width 20.1 % (11.5-14.5); White Blood Count 5.5 K/mm3 (4.5-10.0)
[2023-03-16 06:52] LABS: Alanine Aminotransferase 11 U/L (6-35); Albumin Level 3.4 g/dL (3.5-5.1); Alkaline Phosphatase 79 U/L (38-126); Anion Gap 1 mmol/L (8-16); Aspartate Amino Transferase 25 U/L (14-36); Bilirubin,Total 0.6 mg/dL (0.2-1.3); Blood Urea Nitrogen 18 mg/dL (7-17); CRP 5.4 mg/dL (<1.0); Calcium 8.1 mg/dL (8.4-10.2); Carbon Dioxide 39 mmol/L (22-30); Chloride 98 mmol/L (98-107); Estimated CRCL calculation 108 ml/min; Estimated Glomerular Filt Rate 53; Glucose 121 mg/dL (65-110); Potassium 3.9 mmol/L (3.4-5.0); Sodium 138 mmol/L (137-145)
[2023-03-16 07:02] LABS: Platelet Estimate Adequate (Adequate)
[2023-03-16 07:03] LABS: Anisocytosis 2+ (NORMAL); Hypochromasia 2+ (NORMAL); Schistocytes None Seen (NORMAL)
[2023-03-16 07:43] LABS: Glucose Point of Care 109 mg/dl (65-105)
[2023-03-16 07:48] LABS: Folic Acid 6.5 ng/mL (2.76->20)
[2023-03-16 08:00] LABS: Iron 32 ug/dL (37-170)
[2023-03-16 08:09] LABS: Percent Iron Saturation 8 % (20-50)
[2023-03-16] MEDS: carvediloL 12.5 MG TABLET PO ×2 (08:48→21:37)
[2023-03-16] MEDS: lamoTRIgine 100 MG TABLET PO (08:48)
[2023-03-16] MEDS: FUROSEMIDE INJ 40 MG/4 ML VIAL IV PUSH (08:48)
[2023-03-16] MEDS: GLIMEPIRIDE 1 MG TABLET PO (08:48)
[2023-03-16] MEDS: ENOXAPARIN 40 MG/0.4 ML SYRINGE SUB-Q (08:48)
[2023-03-16] MEDS: SPIRONOLACTONE 25 MG TABLET PO (08:49)
[2023-03-16] MEDS: TOLNAFTATE 1% POWDER 45 GM BTL 1 APPLIC TOPICAL ×3 (08:49→18:24)
[2023-03-16 11:34] LABS: Glucose Point of Care 128 mg/dl (65-105)
[2023-03-16] MEDS: GABAPENTIN 300 MG CAPSULE PO ×2 (13:12→18:23)
--- NOTE | 2023-03-16 13:21 | PM.IMPN ---
Progress Note: A&P Assessment and Plan (1) CHF (congestive heart failure), NYHA class I: Code(s): I50.9 - Heart failure, unspecified Status: Acute Assessment and Plan: BNP only 840 but CXR consistent with pulmonary edema and she has O2 requirement. Patient with acute on chronic CHF. Probably right-sided with hypokinetic right ventricle. Her EF is 60-65% with normal diastolic function by echocardiogram today. Continue IV Lasix. Continue Aldactone. Monitor I/O's (2) Cellulitis: Qualifiers: Site of cellulitis: trunk Site of cellulitis of trunk: abdominal wall Qualified Code(s): L03.311 - Cellulitis of abdominal wall Code(s): L03.90 - Cellulitis, unspecified Status: Acute Assessment and Plan: Initially felt to have cellulitis on admission and so started on cefepime, Flagyl and vancomycin. BCx NGTD. Wound culture pending. It was reported the patient has multiple ulcerated areas under her pannus. Continue IV antibiotics. Wound care consult. (3) Anemia: Code(s): D64.9 - Anemia, unspecified Status: Acute Assessment and Plan: Hgb low in the 9 range. Hgb normal in September. Check iron studies, B12. Monitor and transfuse as needed (4) Type 2 diabetes mellitus without complications: Code(s): E11.9 - Type 2 diabetes mellitus without complications Status: Acute Assessment and Plan: A1c 6.5. The patient's blood glucose was reviewed on 03/15 Glucose remains well controlled. Continue AccuCheks covering with sliding scale. Hypoglycemia protocol available as needed. Continue to monitor (5) Essential (primary) hypertension: Code(s): I10 - Essential (primary) hypertension Status: Acute Assessment and Plan: Patient's blood pressure was reviewed on 03/15 Blood pressure remains reasonably well controlled. Will continue to monitor (6) Hypothyroidism, unspecified: Code(s): E03.9 - Hypothyroidism, unspecified Status: Acute Assessment and Plan: TSH normal. Continue with levothyroxine (7) Moderate major depression: Code(s): F32.1 - Major depressive disorder, single episode, moderate Status: Acute Assessment and Plan: Mood stable. continue with Lamictal and Trintellix Plan DVT Prophylaxis - Lovenox Code Status - Full Subjective Date/time seen: 03/16/23 13:21 Interval history: no complaints Exam Narrative: AF 98.3 118/66 89 20 94% 2L Gen - NARD Chest -lungs clear anteriorly. CV - RRR with distant S1/S2. Abd -soft. Indurated edema noted in the lower part of the pannus with pitting. Massively obese. Pannus lays upon bilateral midthigh. Ext -3+ + bilateral lower extremity pitting pedal edema. Psych - Nml mood and affect Skin -small palm size denuded area noted in the left medial high ankle area without open wound. Objective Data Vital Signs Vital Signs: Vital Signs - 24 hr 03/15/23 14:00 03/15/23 20:50 03/15/23 20:40 Temperature 98.3 F Pulse Rate 89 68 Respiratory Rate 20 Blood Pressure 118/66 Pulse Oximetry 94 94 Oxygen Delivery Nasal Cannula Oxygen Flow Rate 3 Fraction of Inspired Oxygen 03/15/23 21:32 03/15/23 23:03 03/16/23 06:00 Temperature 97.7 F 98.1 F Pulse Rate 87 65 88 Respiratory Rate 22 H 20 Blood Pressure 117/59 L 128/60 Pulse Oximetry 98 98 99 Oxygen Delivery Nasal Cannula Oxygen Flow Rate 3 Fraction of Inspired Oxygen 32 03/16/23 09:35 03/16/23 13:00 03/16/23 13:14 Temperature Pulse Rate Respiratory Rate Blood Pressure Pulse Oximetry 96 89 L 93 Oxygen Delivery Nasal Cannula Room Air Nasal Cannula Oxygen Flow Rate 2 2 Fraction of Inspired Oxygen Intake/Output Intake/Output: Intake & Output 03/13/23 03/14/23 03/15/23 03/16/23 23:59 23:59 23:59 23:59 Intake Total 50 1780 1268 Output Total 2275 732 Balance 50 -803 358 Meds/Results Medicat
[2023-03-16 14:33] LABS: Vancomycin Trough 17.7 ug/mL (10.0-20.0)
[2023-03-16 16:47] LABS: Glucose Point of Care 112 mg/dl (65-105)
[2023-03-16 22:15] LABS: Glucose Point of Care 104 mg/dl (65-105)
[2023-03-17] MEDS: CEFEPIME 2 GM/NS 50 ML 2 GM/50 ML BAG IVPB (02:10)
--- NOTE | 2023-03-17 02:30 | PC.NURSE ---
Notified Dr. Caputo of new confusion with expressive aphasia. Dr. Caputo saw patient at bedside and patient was able to answer questions appropriately and follow directions. New order received to obtain a STAT ABG.
[2023-03-17 02:57] LABS: Alveolar/Arterial O2 Gradient 56.1 mmHg; Base Excess ABG 8.1 mEq/l (+/-2.0); Fractional Inspired Oxygen 28 %; HCO3 ABG 35.9 mEq/l (22.0-26.0); Oxygen Content ABG 12.8 %vol (16.0-22.0); Oxygen Saturation ABG 88.5 % (95.0-100.0); Oxyhemoglobin 89.6 % THb (90.0-100.0); PO2 ABG 60.8 mmHg (80.0-100.0); PO2 FiO2 Ratio Arterial Blood 2.17 %; Total Hemoglobin 10.1 g/dL (12.0-18.0); pH ABG 7.327 (7.350-7.450)
[2023-03-17 02:59] LABS: Device NASAL CANNULA; Modified Allen's Test Pass; PCO2 ABG 70.1 mmHg (35.0-45.0); Site Drawn LEFT RADIAL
[2023-03-17] MEDS: metroNIDAZOLE 500 MG/ISO 100ML 500 MG/100 ML BAG 100 MG IVPB (05:06)
[2023-03-17] MEDS: LEVOTHYROXINE SODIUM 75 MCG TABLET BY MOUTH (05:07)
[2023-03-17 06:00] VITALS: BP 124/62; PULSE 87; RESP 22; TEMP 37.5; O2SAT 92
[2023-03-17 06:12] LABS: Estimated CRCL calculation 118 ml/min; Estimated Glomerular Filt Rate 59
--- NOTE | 2023-03-17 07:08 | P.PNCROSS_ITS ---
Event Note Event Note Event Note: Nursing staff. Me while I was on the medical floor. She reported that the pat meche had woke up and was confused. The patient was searching for answers to questions. She thought the month was April and could not state the year. She could not state the name of the hospital or the location of the hospital. By the time I went in to evaluate the patient a few minutes later the patient was oriented to person and place. She could still could not name the hospital but did know the town. She did seem to have some difficulty with some word finding but this cleared throughout the course of our conversation. She reports that is not unusual for her to have difficulties like this 6 specially when she has a acute infection. She is morbidly obese with a BMI of 96. She reports that she is supposed to have a outpatient sleep study on April 13. She denies any history of known a respiratory failure and is not on oxygen at home. At this time she is requiring 2 L nasal cannula to maintain oxygen saturations of 92%. She denies feeling short of breath. A stat ABG was performed given her confusion which demonstrated relatively compensated hypercapnic respiratory failure with a pCO2 of 70 and a PO2 of 60. I suspect that the patient's confusion is due to increased hypoxia when she sleeps but she lives of chronic hypercapnia and again on over compensate are oxygenation. Will continue to monitor closely. The patient may benefit from BiPAP but she would not feel the continue this at home without appropriate sleep studies. May be worth a consult to pulmonology to see if they could arrange for BiPAP at home without completed sleep study given the patient's volume status. Positive-pressure ventilation with definitely help with the pulmonary edema. Will defer this decision to daytime hospitalist as the patient is currently stable. 30 minute spent in critical care activities. Due to a high probability of clinically significant, life threatening deterioration, the patient required my highest level of preparedness to intervene emergently and I personally spent this critical care time directly and personally managing the patient. This critical care time included obtaining a history; examining the patient; pulse oximetry; ordering and review of studies; arranging urgent treatment with development of a management plan; evaluation of patient's response to treatment; frequent reassessment; and discussions with other providers. It was exclusive of separately billable procedures and treating other patients and teaching time. Please see Assessment and Plan section and the rest of the note for further information on patient assessment and treatment.
[2023-03-17 08:12] LABS: Glucose Point of Care 88 mg/dl (65-105)
[2023-03-17 08:51] VITALS: PULSE 86
[2023-03-17] MEDS: lamoTRIgine 100 MG TABLET PO (08:51)
[2023-03-17] MEDS: SPIRONOLACTONE 25 MG TABLET PO (08:51)
[2023-03-17] MEDS: ENOXAPARIN 40 MG/0.4 ML SYRINGE SUB-Q (08:51)
[2023-03-17] MEDS: GABAPENTIN 300 MG CAPSULE PO ×3 (08:51→18:54)
[2023-03-17] MEDS: GLIMEPIRIDE 1 MG TABLET PO (08:51)
[2023-03-17] MEDS: carvediloL 12.5 MG TABLET PO ×2 (08:51→22:09)
[2023-03-17] MEDS: FUROSEMIDE INJ 40 MG/4 ML VIAL IV PUSH (08:52)
[2023-03-17] MEDS: TOLNAFTATE 1% POWDER 45 GM BTL 1 APPLIC TOPICAL ×2 (08:53→21:40)
[2023-03-17 09:00] VITALS: O2SAT 93
--- NOTE | 2023-03-17 11:09 | PM.IMPN ---
Progress Note: A&P Assessment and Plan (1) CHF (congestive heart failure), NYHA class I: Code(s): I50.9 - Heart failure, unspecified Status: Acute Assessment and Plan: Continue diuretics. Monitor output. (2) Cellulitis: Qualifiers: Site of cellulitis: trunk Site of cellulitis of trunk: abdominal wall Qualified Code(s): L03.311 - Cellulitis of abdominal wall Code(s): L03.90 - Cellulitis, unspecified Status: Acute Assessment and Plan: Antibiotics (3) Anemia: Code(s): D64.9 - Anemia, unspecified Status: Acute Assessment and Plan: Monitor (4) Type 2 diabetes mellitus without complications: Code(s): E11.9 - Type 2 diabetes mellitus without complications Status: Acute Assessment and Plan: A1c 6.5. The patient's blood glucose was reviewed on 03/15 Glucose remains well controlled. Continue AccuCheks covering with sliding scale. Hypoglycemia protocol available as needed. Continue to monitor (5) Essential (primary) hypertension: Code(s): I10 - Essential (primary) hypertension Status: Acute Assessment and Plan: Patient's blood pressure was reviewed on 03/15 Blood pressure remains reasonably well controlled. Will continue to monitor (6) Hypothyroidism, unspecified: Code(s): E03.9 - Hypothyroidism, unspecified Status: Acute Assessment and Plan: TSH normal. Continue with levothyroxine (7) Moderate major depression: Code(s): F32.1 - Major depressive disorder, single episode, moderate Status: Acute Assessment and Plan: Mood stable. continue with Lamictal and Trintellix Plan DVT Prophylaxis - Lovenox Code Status - Full Subjective Date/time seen: 03/17/23 11:09 Interval history: No complaints Exam Narrative: AF 98.3 118/66 89 20 94% 2L Gen - NARD Chest -lungs clear anteriorly. CV - RRR with distant S1/S2. Abd -soft. Indurated edema noted in the lower part of the pannus with pitting. Massively obese. Pannus lays upon bilateral midthigh. Ext -3+ + bilateral lower extremity pitting pedal edema. Psych - Nml mood and affect Skin -small palm size denuded area noted in the left medial high ankle area without open wound. Objective Data Vital Signs Vital Signs: Vital Signs - 24 hr 03/16/23 13:59 03/16/23 13:00 03/16/23 13:14 Temperature Pulse Rate Respiratory Rate Blood Pressure Pulse Oximetry 89 L 93 Oxygen Delivery Nasal Cannula Room Air Nasal Cannula Oxygen Flow Rate 2 2 Fraction of Inspired Oxygen 03/16/23 14:00 03/16/23 22:00 03/16/23 20:00 Temperature 99.2 F 99.3 F Pulse Rate 99 104 H 104 H Respiratory Rate 22 H 22 H 22 H Blood Pressure 121/49 L 136/62 Pulse Oximetry 95 94 94 Oxygen Delivery Nasal Cannula Oxygen Flow Rate 2 Fraction of Inspired Oxygen 32 03/17/23 06:00 03/17/23 08:51 Temperature 99.5 F Pulse Rate 87 86 Respiratory Rate 22 H Blood Pressure 124/62 Pulse Oximetry 92 Oxygen Delivery Oxygen Flow Rate Fraction of Inspired Oxygen Intake/Output Intake/Output: Intake & Output 03/14/23 03/15/23 03/16/23 03/17/23 23:59 23:59 23:59 23:59 Intake Total 50 1780 2908 1140 Output Total 2275 6302 500 Balance 50 -777 590 640 Meds/Results Medications: Active Medications Generic Name Dose Route Start Last Admin Trade Name Freq PRN Reason Stop Dose Admin Acetaminophen 650 mg 03/15/23 05:26 03/15/23 14:21 Acetaminophen 325 Mg Tablet PO 650 mg Q4H PRN Administration Headache Carvedilol 12.5 mg 03/15/23 09:00 03/17/23 08:51 Carvedilol 12.5 Mg Tablet PO 12.5 mg Q12HR JEANE Administration Dextrose 12.5 gm 03/15/23 00:31 Dextrose 50% 25 Gm/50 Ml Syringe IV PUSH PRN PRN Hypoglycemia Protocol Enoxaparin Sodium 40 mg 03/15/23 09:00 03/17/23 08:51 Enoxaparin 40 Mg/0.4 Ml Syringe SUB-Q 40 mg DA
[2023-03-17 11:57] LABS: Glucose Point of Care 119 mg/dl (65-105)
[2023-03-17 14:00] VITALS: BP 131/70; PULSE 83; RESP 22; TEMP 37.2; O2SAT 94
--- NOTE | 2023-03-17 14:10 | PCOTNOTE ---
Attempted to see pt. for occupational therapy evaluation. Pt. has just returned to bed from working with PT, would like to rest at this time. Nursing aware. Following.
[2023-03-17 17:20] LABS: Glucose Point of Care 123 mg/dl (65-105)
[2023-03-17 20:24] LABS: Glucose Point of Care 143 mg/dl (65-105)
[2023-03-17 21:32] VITALS: BP 126/60; PULSE 80; RESP 13; TEMP 36.1; O2SAT 90
[2023-03-17 22:09] VITALS: PULSE 80
[2023-03-17] MEDS: DOXYCYCLINE HYCLATE 100 MG TABLET PO (22:10)
--- NOTE | 2023-03-17 23:02 | PC.NURSE ---
pts 2100 medications were late due to pharmacy.
[2023-03-18] VITALS (7 sets, daily range): BP systolic 131–148; BP diastolic 53–92; PULSE 72–82; RESP 14–20; TEMP 35.6–36.6; O2SAT 92–96; BMI 10.0
[2023-03-18] MEDS: LEVOTHYROXINE SODIUM 75 MCG TABLET BY MOUTH (06:22)
[2023-03-18 07:24] LABS: Basophils Percent Auto 0.6 % (0.2-1.2); Eosinophils Absolute Auto 0.2 K/mm3 (0-0.3); Hematocrit 34.2 % (37.0-47.0); Hemoglobin 9.4 g/dL (12.0-15.0); Immature Granulocyte Absolute 0.02 K/mm3 (0.00-0.031); Immature Granulocyte Percent A 0.4 % (0-0.5); Lymphocytes Absolute Auto 1.24 K/mm3 (0.9-3.2); Lymphocytes Percent Auto 23.8 % (18.3-44.2); Mean Corpuscular HGB Conc 27.5 g/dl (32-36); Mean Corpuscular Hemoglobin 24.4 pg (26-34); Mean Corpuscular Volume 88.6 fl (80-100); Mean Platelet Volume 9.4 fl (7.4-10.4); Monocytes Absolute Auto 0.5 K/mm3 (0.1-0.6); Monocytes Percent Auto 10.2 % (2.6-8.5); Neutrophils Absolute Auto 3.2 K/mm3 (1.3-6.7); Platelet Count Result 154 k/mm3 (150-375); Red Blood Count 3.86 M/mm3 (4.2-5.4); White Blood Count 5.2 K/mm3 (4.5-10.0)
[2023-03-18 07:32] LABS: Anion Gap 2 mmol/L (8-16); Blood Urea Nitrogen 23 mg/dL (7-17); Calcium 8.3 mg/dL (8.4-10.2); Carbon Dioxide 38 mmol/L (22-30); Chloride 97 mmol/L (98-107); Estimated CRCL calculation 130 ml/min; Estimated Glomerular Filt Rate > 60; Glucose 94 mg/dL (65-110); Potassium 4.1 mmol/L (3.4-5.0); Sodium 137 mmol/L (137-145)
[2023-03-18 07:39] LABS: Platelet Estimate Adequate (Adequate)
[2023-03-18 07:40] LABS: Anisocytosis 1+ (NORMAL); Hypochromasia 2+ (NORMAL); Schistocytes None Seen (NORMAL)
[2023-03-18 08:15] LABS: Glucose Point of Care 104 mg/dl (65-105)
[2023-03-18] MEDS: carvediloL 12.5 MG TABLET PO ×2 (10:47→20:30)
[2023-03-18] MEDS: DOXYCYCLINE HYCLATE 100 MG TABLET PO ×2 (10:47→20:30)
[2023-03-18] MEDS: SPIRONOLACTONE 25 MG TABLET PO (10:47)
[2023-03-18] MEDS: GABAPENTIN 300 MG CAPSULE PO ×3 (10:47→17:57)
[2023-03-18] MEDS: ENOXAPARIN 40 MG/0.4 ML SYRINGE SUB-Q (10:47)
[2023-03-18] MEDS: TOLNAFTATE 1% POWDER 45 GM BTL 1 APPLIC TOPICAL ×2 (10:48→20:25)
[2023-03-18] MEDS: lamoTRIgine 100 MG TABLET PO (10:48)
[2023-03-18] MEDS: FUROSEMIDE INJ 40 MG/4 ML VIAL IV PUSH (10:48)
[2023-03-18] MEDS: GLIMEPIRIDE 1 MG TABLET PO (10:48)
[2023-03-18 11:49] LABS: Glucose Point of Care 101 mg/dl (65-105)
--- NOTE | 2023-03-18 12:35 | PM.DS ---
DS: Admitting Diagnosis Discharge Date 03/18/23 Admitting Diagnosis Volume overload, CHF, diastolic/right heart Cellulitis DS: Discharge Diagnosis Discharge Diagnosis (1) CHF (congestive heart failure), NYHA class I: Code(s): I50.9 - Heart failure, unspecified Status: Acute Assessment and Plan: Continue diuretics. Monitor output. (2) Cellulitis: Qualifiers: Site of cellulitis: trunk Site of cellulitis of trunk: abdominal wall Qualified Code(s): L03.311 - Cellulitis of abdominal wall Code(s): L03.90 - Cellulitis, unspecified Status: Acute Assessment and Plan: Antibiotics (3) Anemia: Code(s): D64.9 - Anemia, unspecified Status: Acute Assessment and Plan: Monitor (4) Type 2 diabetes mellitus without complications: Code(s): E11.9 - Type 2 diabetes mellitus without complications Status: Acute Assessment and Plan: A1c 6.5. The patient's blood glucose was reviewed on 03/15 Glucose remains well controlled. Continue AccuCheks covering with sliding scale. Hypoglycemia protocol available as needed. Continue to monitor (5) Essential (primary) hypertension: Code(s): I10 - Essential (primary) hypertension Status: Acute Assessment and Plan: Patient's blood pressure was reviewed on 03/15 Blood pressure remains reasonably well controlled. Will continue to monitor (6) Hypothyroidism, unspecified: Code(s): E03.9 - Hypothyroidism, unspecified Status: Acute Assessment and Plan: TSH normal. Continue with levothyroxine (7) Moderate major depression: Code(s): F32.1 - Major depressive disorder, single episode, moderate Status: Acute Assessment and Plan: Mood stable. continue with Lamictal and Trintellix Plan DVT Prophylaxis - Lovenox Code Status - Full DS: Summary Hospital Course Hospital Course: Patient is a 48-year-old morbidly obese female came in with shortness of breath and cellulitis of the abdomen. She had some mild erythema of her abdominal fold. Wound cultures were obtained. Cultures were negative. Wound cultures did grow MRSA. Lengthy discussion with pharmacist ID. She did have some resistance to her MRSA. She also had some yeast that grew in her intertrigo. Will be sent home on nystatin cream and also linezolid. Lengthy discussion with the patient about oral and nasal lid and her interaction with Trintellix. She reports she has not been taking this anyway for least 2-3 weeks. She questions whether not this is helping with any of her depressive symptoms. We decided to go ahead and give her linezolid and she is going to hold off on Trintellix for at least 7 more days while taking her antibiotic. Otherwise increased her diuretic therapy on discharge. Echocardiogram noted. Patient is adamant wants to go home despite recommendations by myself for possible [facility] facility placement. Patient can be discharged follow-up primary care physician Time Spent with Patient Time attestation: Total time spent providing and/or coordinating discharge services: Exam Narrative: AF 98.3 118/66 89 20 94% 2L Gen - NARD Chest -lungs clear anteriorly. CV - RRR with distant S1/S2. Abd -soft. Indurated edema noted in the lower part of the pannus with pitting. Massively obese. Pannus lays upon bilateral midthigh. Ext -3+ + bilateral lower extremity pitting pedal edema. Psych - Nml mood and affect Skin -small palm size denuded area noted in the left medial high ankle area without open wound. DS: Data Data Completed and Pending Labs on day of discharge: Labs from last 24 hours 03/18/23 03/18/23 03/18/23 11:46 07:57 06:42 WBC 5.2 RBC 3.86 L Hgb 9.4 L Hct 34.2 L MCV 88.6 MCH 24.4 L MCHC 27.5 L RDW 20.0 H Plt Count 154 MPV 9.4 Immature Gran % (Auto) 0.4 Neut % (Auto) 61.0 Lymph % (Auto)
[2023-03-18 17:31] LABS: Glucose Point of Care 137 mg/dl (65-105)
[2023-03-18 21:58] LABS: Glucose Point of Care 117 mg/dl (65-105)
[2023-03-19] VITALS (9 sets, daily range): BP systolic 140; BP diastolic 71; PULSE 73–94; RESP 20; TEMP 35.5; O2SAT 88–97
[2023-03-19] MEDS: LEVOTHYROXINE SODIUM 75 MCG TABLET BY MOUTH (06:34)
[2023-03-19 08:12] LABS: Glucose Point of Care 112 mg/dl (65-105)
[2023-03-19] MEDS: DOXYCYCLINE HYCLATE 100 MG TABLET PO (08:15)
[2023-03-19] MEDS: GABAPENTIN 300 MG CAPSULE PO ×2 (08:15→12:15)
[2023-03-19] MEDS: GLIMEPIRIDE 1 MG TABLET PO (08:15)
[2023-03-19] MEDS: lamoTRIgine 100 MG TABLET PO (08:15)
[2023-03-19] MEDS: SPIRONOLACTONE 25 MG TABLET PO (08:16)
[2023-03-19] MEDS: ENOXAPARIN 40 MG/0.4 ML SYRINGE SUB-Q (08:16)
[2023-03-19] MEDS: TOLNAFTATE 1% POWDER 45 GM BTL 1 APPLIC TOPICAL (08:16)
[2023-03-19] MEDS: carvediloL 12.5 MG TABLET PO (08:17)
[2023-03-19] MEDS: FUROSEMIDE 40 MG TABLET PO (10:10)
--- NOTE | 2023-03-19 11:17 | PM.DS ---
DS: Admitting Diagnosis Discharge Date March 19, 2023 Admitting Diagnosis Shortness of breath and cellulitis DS: Discharge Diagnosis Discharge Diagnosis (1) CHF (congestive heart failure), NYHA class I: Code(s): I50.9 - Heart failure, unspecified Status: Acute Assessment and Plan: Continue diuretics. Monitor output. (2) Cellulitis: Qualifiers: Site of cellulitis: trunk Site of cellulitis of trunk: abdominal wall Qualified Code(s): L03.311 - Cellulitis of abdominal wall Code(s): L03.90 - Cellulitis, unspecified Status: Acute Assessment and Plan: Antibiotics (3) Anemia: Code(s): D64.9 - Anemia, unspecified Status: Acute Assessment and Plan: Monitor (4) Type 2 diabetes mellitus without complications: Code(s): E11.9 - Type 2 diabetes mellitus without complications Status: Acute Assessment and Plan: A1c 6.5. The patient's blood glucose was reviewed on 03/15 Glucose remains well controlled. Continue AccuCheks covering with sliding scale. Hypoglycemia protocol available as needed. Continue to monitor (5) Essential (primary) hypertension: Code(s): I10 - Essential (primary) hypertension Status: Acute Assessment and Plan: Patient's blood pressure was reviewed on 03/15 Blood pressure remains reasonably well controlled. Will continue to monitor (6) Hypothyroidism, unspecified: Code(s): E03.9 - Hypothyroidism, unspecified Status: Acute Assessment and Plan: TSH normal. Continue with levothyroxine (7) Moderate major depression: Code(s): F32.1 - Major depressive disorder, single episode, moderate Status: Acute Assessment and Plan: Mood stable. continue with Lamictal and Trintellix Plan DVT Prophylaxis - Lovenox Code Status - Full DS: Summary Hospital Course Hospital Course: Patient is a 48-year-old morbidly obese female came in with shortness of breath and cellulitis of the abdomen.? She had some mild erythema of her abdominal fold.? Wound cultures were obtained.? Cultures were negative.? Wound cultures did grow MRSA.? Lengthy discussion with pharmacist ID.? She did have some resistance to her MRSA.? She also had some yeast that grew in her intertrigo.? Will be sent home on nystatin cream and also linezolid.? Lengthy discussion with the patient about oral and nasal lid and her interaction with Trintellix.? She reports she has not been taking this anyway for least 2-3 weeks.? She questions whether not this is helping with any of her depressive symptoms.? We decided to go ahead and give her linezolid and she is going to hold off on Trintellix for at least 7 more days while taking her antibiotic.? Otherwise increased her diuretic therapy on discharge.? Echocardiogram noted.? Patient is adamant wants to go home despite recommendations by myself for possible [facility] facility placement.? Patient can be discharged follow-up primary care physician Time Spent with Patient Time attestation: Total time spent providing and/or coordinating discharge services: Exam Narrative: AF 98.3 118/66 89 20 94% 2L Gen - NARD Chest -lungs clear anteriorly. CV - RRR with distant S1/S2. Abd -soft. Indurated edema noted in the lower part of the pannus with pitting. Massively obese. Pannus lays upon bilateral midthigh. Ext -3+ + bilateral lower extremity pitting pedal edema. Psych - Nml mood and affect Skin -small palm size denuded area noted in the left medial high ankle area without open wound. DS: Data Data Completed and Pending Labs on day of discharge: Labs from last 24 hours 03/19/23 03/18/23 03/18/23 08:09 20:36 17:27 POC Capillary Glucose 112 H 117 H 137 H 03/18/23 11:46 POC Capillary Glucose 101 Preliminary micro results at discharge 03/14/23 17:23 Blood Culture - Preliminary Blood Staphylococcus hominis 03/14/23
--- NOTE | 2023-03-19 12:07 | HOMEO2EVAL ---
Evaluation was performed at [facility] Home Oxygen Evaluation RC: Home Oxygen (O2) Evaluation Start: 03/18/23 14:43 Freq: ONCE Status: Active Protocol: RPE Activity Type Activity Date Activity User E-sign Co-sign Detail Recorded Client Recorded Date Recorded By Document 03/19/23 11:00 DJO [email or web address] 03/19/23 12:07 DJO Document 03/19/23 11:05 [email or web address] [email or web address] 03/19/23 12:07 DJO Document 03/19/23 11:10 DJO [email or web address] 03/19/23 12:07 DJO Document 03/19/23 11:15 [email or web address] [email or web address] 03/19/23 12:07 DJO Document 03/19/23 11:25 [email or web address] [email or web address] 03/19/23 12:07 DJO 03/19/23 03/19/23 03/19/23 11:00 11:05 11:10 Home O2 Evaluation [Oxygen] -Test Phase Resting Resting Exercise -Oxygen Delivery Room Air Nasal Cannula Nasal Cannula -Oxygen Flow Rate (L/min) 1 1 [Pulse Oximetry] -Pulse Oximetry (90-100 %) 88 L 91 88 L [Pulse Rate] -Pulse Rate (60-100 beats/min) 84 80 90 [Evaluation] -Activity Tolerance [Charges] -Treatment Charges O2 Evaluation - Inpatient 03/19/23 03/19/23 11:15 11:25 Home O2 Evaluation [Oxygen] -Test Phase Exercise Resting -Oxygen Delivery Nasal Cannula Nasal Cannula -Oxygen Flow Rate (L/min) 2 1 [Pulse Oximetry] -Pulse Oximetry (90-100 %) 91 91 [Pulse Rate] -Pulse Rate (60-100 beats/min) 91 83 [Evaluation] -Activity Tolerance Poor [Charges] -Treatment Charges
[2023-03-19 12:24] LABS: Glucose Point of Care 148 mg/dl (65-105)
== END 2023-03-19 15:05 | disposition home or self-care (01) | DRG 602 ==
LOC: ANHED 17:44 → ANH3MEDSUR 18:16
PROVIDERS: Internal Medicine; Nurse Practitioner; Admitting Provider Internal Medicine; Emergency Provider Physician Assistant; PCP Family Medicine; Visit Provider Chiropractor
DX: L03.311 Cellulitis of abdominal wall (principal); I50.33 Acute on chronic diastolic (congestive) heart failure; Z68.45 Body mass index [BMI] 70 or greater, adult; I11.0 Hypertensive heart disease with heart failure; I89.0 Lymphedema, not elsewhere classified; I87.2 Venous insufficiency (chronic) (peripheral); E66.01 Morbid (severe) obesity due to excess calories; E11.9 Type 2 diabetes mellitus without complications; E53.8 Deficiency of other specified B group vitamins; E55.9 Vitamin D deficiency, unspecified; D63.8 Anemia in other chronic diseases classified elsewhere; K58.0 Irritable bowel syndrome with diarrhea; L30.4 Erythema intertrigo; B95.62 Methicillin resistant Staphylococcus aureus infection as the cause of diseases classified elsewhere; G60.9 Hereditary and idiopathic neuropathy, unspecified; F41.9 Anxiety disorder, unspecified; F32.9 Major depressive disorder, single episode, unspecified; Z86.010 Personal history of colon polyps
CPT/HCPCS: 36415; 36600; 71045; 80048; 80053; 80202; 82565; 82607; 82728; 82746; 82805; 82948; 83036; 83540; 83550; 83605; 83735; 83880; 84443; 85025; 85610; 85730; 86140; 87040; 87070; 87106; 87147; 87181; 87186; 87205; 93005; 94618; 96365; 96366; 96375; 96376; 97161; 97166; 97530; 99285; A9270; C8929; G0378; J0690; J0692; J1650; J1836; J1940; J3370; J7040; Q9957

== ENCOUNTER 2023-03-19 17:35 | Observation (INO) | payer MEDICARE, SELFPAY ==
[2023-03-19 18:16] VITALS: BP 137/61; PULSE 81; RESP 20; TEMP 36.9; O2SAT 93
[2023-03-19 18:40] VITALS: BP 124/52; PULSE 72; RESP 20; O2SAT 89
--- NOTE | 2023-03-19 18:43 | PC.NURSE ---
pt to admit to room 227 with a bariatric bed. awaiting notification from staff that bed is ready. pt aware of admission.
--- NOTE | 2023-03-19 19:09 | PC.NURSE ---
per dr lomas, pt does not need iv placement upon admission. report to juliana schofield. awaiting room ready for pt to go to room 227.
--- NOTE | 2023-03-19 19:13 | ED.GENADULT ---
HPI - General Adult General Chief complaint: Weakness Stated complaint: unspecified Time Seen by Provider: 03/19/23 17:59 Source: patient Mode of arrival: EMS History of Present Illness HPI narrative: 48-year-old female with morbid obesity, depression, diabetes mellitus, hypothyroidism, hypertension, anemia, right heart failure was recently noted to have low blood sugar and was transferred to [facility] where she was noted to be septic secondary to an upper respiratory tract infection. Subsequently she was sent to [facility] in [place] On 2022 the patient was noted to have shortness of breath, bilateral leg swelling and cellulitis of lower abdominal wall / groin. patient had a chest x-ray which revealed cardiomegaly with pulmonary vascular congestion. The patient had an echo which revealed a normal EF with right ventricular enlargement. The patient had wound culture which was positive for MRSA. The patient was treated with increased Lasix and linezolid for the MRSA cellulitis. The patient was discharged this morning from [facility] and sent home. When she arrived at her residence the patient could not walk. She complained of severe weakness. EMS could not leave the patient at home in that state and they went ahead and brought her to the emergency room. The patient denies any chest pain or shortness of breath at this time. She denies any fever or chills. Related Data Home Medications Medication Instructions Recorded Confirmed gabapentin 300 mg capsule 900 mg PO DAILY 03/14/23 03/19/23 levothyroxine 75 mcg tablet 75 mcg DAILY 03/14/23 03/19/23 vortioxetine 20 mg tablet 20 mg PO DAILY 03/14/23 03/19/23 (Trintellix) Allergies Allergy/AdvReac Type Severity Reaction Status Date / Time Sulfa (Sulfonamide Allergy Mild HIVES, Verified 03/14/23 14:58 Antibiotics) SWELLING sulfamethoxazole Allergy Mild HIVES, Verified 03/14/23 14:58 SWELLING sulfamethizole Allergy Unknown Hives Verified 03/14/23 14:58 trimethoprim Allergy Unknown Hives Verified 03/14/23 14:58 Review of Systems Review of Systems: All systems reviewed & are unremarkable except as noted in HPI and below Constitutional: Constitutional: Reports as per HPI, Reports no additional constitutional complaints and Reports weakness Eyes: Eyes: Reports as per HPI and Reports no additional eye complaints ENT: Reports system reviewed and no additional complaints, except as documented and Reports as per HPI Cardiovascular: Cardiovascular: Reports as per HPI and Reports no additional cardiovascular complaints Respiratory: Respiratory: Reports as per HPI and Reports no additional respiratory complaints Comments: Patient denies any cough or shortness of breath at this time. Gastrointestinal: Gastrointestinal: Reports as per HPI Comments: Patient is normally constipated Genitourinary: Genitourinary: Reports no additional female genitourinary complaints Musculoskeletal: Musculoskeletal: Reports no additional musculoskeletal complaints and Reports as per HPI Integumentary/Breasts: Skin/Breast: Reports system reviewed and no additional complaints, except as docu Comments: lymphedema both lower extremities cellulitis of the lower abdominal wall /groin Neurologic: Reports system reviewed and no additional complaints, except as documented and Reports as per HPI Psychiatric: Psychiatric: Reports no additional psychiatric complaints and Reports as per HPI Endocrine: Endocrine: Reports no additional endocrine complaints and Reports as per HPI Hematologic/Lymphatic: Hematologic/Lymphatic: Reports no additional hematologic/lymphatic complaints and Reports as per HPI Allergic/Immunologic: Allergic/Immunologic: Reports no additional allergic/immunologic complaints and Reports as per HPI [facility] Past Medical History Medical History Anxiet
--- NOTE | 2023-03-19 19:40 | PC.NURSE ---
Call report taken by FORD Naidu, pt to be placed in bariatric bed, pt taken to floor and moved to bed c x4 nurses and assist of slide pads.
--- NOTE | 2023-03-19 20:00 | PC.NURSE ---
Per Dr Bui patient's CO2 had been very high and he does not want her to be put on oxygen. He said her SpO2 of 88-90% is good. Patient's SpO2 is 88% on room air. Dr Bui also said that patient does not need an IV site due to her only being here over night and all her medications are PO.
--- NOTE | 2023-03-19 20:29 | PM.IMHP ---
H&P: HPI History of Present Illness Date/Time: 03/20/2023 07:30 Chief Complaint: This patient was admitted to the hospital under observation due to generalized weakness and unable to care for self at home. Narrative: This is a 48-year-old female patient who was discharged from [facility] via EMS to go home after an inpatient stay for acute respiratory failure with hypoxia, congestive heart failure and MRSA positive cellulitis. patient was admitted on 03/14/2023 and was discharged on 03/19/2023. Prior to this hospitalization patient had been at [facility] for rehabilitation after an admission to [place] in January for numerous illnesses/trauma. prior to discharge it is noted that patient repeatedly refused rehabilitation placement though now patient states that she was never presented the option of returning to rehab but thought she was well enough to return home. Once EMS arrived at her home she was unable to get off of the stretcher or make it into her house which was 6 stairs. EMS brought patient to [facility]. ER physician states he called [facility] and was told they have a bed and would be able to take the patient back. He requested patient be admitted iin order to discharge patient to facility next day. At [facility] patient was placed on Linezolid for MRSA cellulitis of trunk and told to stop Trintellix until a week after Linezolid prescription. Patient complains that laying in the bed is uncomfortable and she is requesting that we get her out of bed where she should be able to ambulate herself on flat surface from chair and back. Patient is on oxygen at 2 liters/minute maintaining saturation around 90-92%. Respiratory Therapy had completed oxygen evaluation at [facility] with recommendations for 2 liters/minute at all times. Patient only to be at this facility long enough to get accepted into SNF for acute rehab. Review of Systems Review of Systems: All systems reviewed & are unremarkable except as noted in HPI and below PMFSH Past Medical History Medical History Anxiety CHF (congestive heart failure), NYHA class I Essential (primary) hypertension H/O adenomatous polyp of colon Hypertension associated with diabetes Hypothyroidism, unspecified Idiopathic peripheral neuropathy Irritable bowel syndrome with diarrhea Lymphedema of both lower extremities Magnesium deficiency Moderate major depression Morbid obesity Psoriasis Stasis dermatitis Type 2 diabetes mellitus without complications Vitamin B12 deficiency Vitamin D deficiency Surgical History Surgical History H/O arthroscopic knee surgery H/O section X1 H/O dilation and curettage History of tonsillectomy and adenoidectomy Hx of cholecystectomy Family History Family History Mother Hypertension Sibling Hypertension Family history of congestive heart failure Other Family history of arthritis Social History Social History Social History: She lives alone and has one child. She is single and disabled. code status full code Smoking status: Never smoker Second hand tobacco smoke exposure: No Alcohol intake: never Substance use: never Substance use type: does not use Lack of Transportation: No Lack of Food: Never True Current Housing: I Have Housing Concerned About Future Housing: No Difficulty Paying Gas/Electric Bills: No Difficulty Paying for Meds: No Currently Unemployed: No Education: High School Diploma/GED Difficulty w/ Childcare or Family Care: No Gender identity (if verbalized by the patient): Female Spiritual care concerns: No Agree to blood products: Yes Meds Home Medications and Allergies Home Medications Medi
--- NOTE | 2023-03-19 21:08 | ADMGEN ---
This patient, Peg Nicole, was admitted to 2nd Floor Room 227-2. Patient/family oriented to hospital policies and general routines including ID bracelet, bed and alarms, visiting hours, pain management, procedures, bathroom and other care routines, personal items, smoking policy, room service/diet, and visiting hours. Information on how to activate the Rapid Response Team has been discussed. Patient/Family are encouraged to report perceived risks to care and to ask questions if they do not understand what they are told or what they should do.
[2023-03-19 21:37] VITALS: BP 170/57; PULSE 80; RESP 22; TEMP 36.1; O2SAT 88; BMI 93.7
[2023-03-19 22:04] VITALS: PULSE 84
[2023-03-19] MEDS: carvediloL 12.5 MG TABLET PO (22:04)
[2023-03-19] MEDS: LINEZOLID 600 MG TABLET PO (22:04)
[2023-03-19 23:45] VITALS: O2SAT 88
[2023-03-20] VITALS (9 sets, daily range): BP systolic 125–141; BP diastolic 44–60; PULSE 78–90; RESP 18–22; TEMP 35.8–36.9; O2SAT 88–94
[2023-03-20 05:14] LABS: Basophils Absolute Auto 0.03 K/mm3 (0.00-0.10); Basophils Percent Auto 0.5 % (0.0-1.0); Eosinophils Absolute Auto 0.18 K/mm3 (0.02-0.50); Eosinophils Percent Auto 3.2 % (1.0-6.0); Hematocrit 31.9 % (35.0-49.0); Hemoglobin 8.8 g/dL (12.0-15.0); Immature Granulocyte Absolute 0.01 K/mm3 (0.00-0.00); Immature Granulocyte Percent A 0.2 % (0.0-0.0); Lymphocytes Absolute Auto 1.02 K/mm3 (1.10-4.50); Lymphocytes Percent Auto 17.9 % (18.0-42.0); Mean Corpuscular HGB Conc 27.6 g/dL (32.0-36.0); Mean Corpuscular Hemoglobin 24.4 pg (27.0-31.0); Mean Corpuscular Volume 88.6 fL (78.0-102.0); Mean Platelet Volume 9.4 fl (9.2-11.8); Monocytes Absolute Auto 0.53 K/mm3 (0.10-0.90); Monocytes Percent Auto 9.3 % (2.0-11.0); Neutrophils Absolute Auto 3.9 K/mm3 (1.7-7.2); Neutrophils Percent Auto 68.9 % (50.0-70.0); Platelet Count Result 151 K/mm3 (150-420); Red Cell Distribution Width 19.6 % (11.6-14.4); White Blood Count 5.7 K/mm3 (4.8-10.8)
[2023-03-20 05:29] LABS: Albumin Level 2.1 g/dL (3.4-5.0); Alkaline Phosphatase 66 U/L (46-116); Anion Gap 0 mmol/L (8-16); Aspartate Amino Transferase 19 U/L (15-37); Bilirubin,Total 0.4 mg/dL (0.00-1.00); Blood Urea Nitrogen 21 mg/dL (7-18); Calcium 8.5 mg/dL (8.5-10.1); Carbon Dioxide 40 mmol/L (21-32); Chloride 104 mmol/L (98-108); Estimated CRCL calculation 113 ml/min; Estimated Glomerular Filt Rate 57; Glucose 117 mg/dL (70-99); Osmolality Calculated 302 mOsm/kg (285-295); Sodium 144 mmol/L (136-145); Total Protein 7.3 g/dL (6.4-8.2)
[2023-03-20 05:44] LABS: Alanine Aminotransferase < 6 U/L (14-59)
[2023-03-20] MEDS: LEVOTHYROXINE SODIUM 75 MCG TABLET BY MOUTH (05:47)
[2023-03-20] MEDS: TOLNAFTATE 1% POWDER 45 GM BTL 1 APPLIC TOPICAL ×3 (07:46→17:03)
[2023-03-20] MEDS: GLIMEPIRIDE 1 MG TABLET PO (07:47)
[2023-03-20] MEDS: carvediloL 12.5 MG TABLET PO ×2 (07:47→20:17)
[2023-03-20] MEDS: SPIRONOLACTONE 25 MG TABLET PO (07:48)
[2023-03-20] MEDS: lamoTRIgine 100 MG TABLET PO (07:48)
[2023-03-20] MEDS: FUROSEMIDE 40 MG TABLET PO ×2 (07:48→17:03)
[2023-03-20] MEDS: GABAPENTIN 300 MG CAPSULE PO ×3 (08:00→17:03)
--- NOTE | 2023-03-20 08:05 | PC.NURSE ---
Patient asked for her routine medication a few minutes before 8 am. Licensed Life And Health Agent administered medications a few minutes early per patient request. Patient questioned need for every medication. Licensed Life And Health Agent explained medication indications to patient, and went to her discharge paperwork from [facility] to show patient that she was discharged from [facility] on new medications. Patient then asked to be gotten up into a chair. Licensed Life And Health Agent explained to patient that we currently do not have the equipment to meet that need. Patient anxious to be discharged to another facility.
[2023-03-20] MEDS: LINEZOLID 600 MG TABLET PO ×2 (08:36→20:17)
[2023-03-20 11:46] LABS: Glucose Point of Care 95 mg/dl (65-105)
[2023-03-20 11:46] LABS: Glucose Point of Care 88 mg/dl (65-105)
[2023-03-20 16:37] LABS: Glucose Point of Care 113 mg/dl (65-105)
[2023-03-20] MEDS: ENOXAPARIN 40 MG/0.4 ML SYRINGE SUB-Q (20:17)
[2023-03-20 20:22] LABS: Glucose Point of Care 129 mg/dl (65-105)
--- NOTE | 2023-03-20 22:00 | PC.NURSE ---
Pt called to reposition, pt requesting to stand up to get more comfortable , multiple attempts made with 2 assist, successful on 3rd attempt. Once sitting back down pt states she thinks she may have to urinate, bedpan offered and declined, pure wick offered and declined, pt states she wants to rest first.
--- NOTE | 2023-03-20 22:30 | PC.NURSE ---
Pt called staff to room, states she needs to urinate, multiple unsuccessful attempt made to stand, pt agrees to pure wick at this time, unable to place while sitting, pt able to stand to place pure wick after 3 attempts.
[2023-03-21 05:22] LABS: Basophils Absolute Auto 0.04 K/mm3 (0.00-0.10); Basophils Percent Auto 0.7 % (0.0-1.0); Eosinophils Absolute Auto 0.23 K/mm3 (0.02-0.50); Eosinophils Percent Auto 3.8 % (1.0-6.0); Hematocrit 34.1 % (35.0-49.0); Hemoglobin 9.3 g/dL (12.0-15.0); Immature Granulocyte Absolute 0.02 K/mm3 (0.00-0.00); Immature Granulocyte Percent A 0.3 % (0.0-0.0); Lymphocytes Absolute Auto 1.31 K/mm3 (1.10-4.50); Lymphocytes Percent Auto 21.7 % (18.0-42.0); Mean Corpuscular HGB Conc 27.3 g/dL (32.0-36.0); Mean Corpuscular Hemoglobin 24.6 pg (27.0-31.0); Mean Corpuscular Volume 90.2 fL (78.0-102.0); Mean Platelet Volume 9.6 fl (9.2-11.8); Monocytes Absolute Auto 0.61 K/mm3 (0.10-0.90); Monocytes Percent Auto 10.1 % (2.0-11.0); Neutrophils Absolute Auto 3.8 K/mm3 (1.7-7.2); Neutrophils Percent Auto 63.4 % (50.0-70.0); Platelet Count Result 179 K/mm3 (150-420); Red Blood Count 3.78 M/mm3 (4.20-5.40); Red Cell Distribution Width 19.8 % (11.6-14.4)
[2023-03-21 05:38] LABS: Alanine Aminotransferase 6 U/L (14-59); Albumin Level 2.5 g/dL (3.4-5.0); Alkaline Phosphatase 70 U/L (46-116); Anion Gap 2 mmol/L (8-16); Aspartate Amino Transferase 18 U/L (15-37); Bilirubin,Total 0.5 mg/dL (0.00-1.00); Blood Urea Nitrogen 20 mg/dL (7-18); Calcium 8.6 mg/dL (8.5-10.1); Carbon Dioxide 39 mmol/L (21-32); Chloride 104 mmol/L (98-108); Estimated CRCL calculation 118 ml/min; Estimated Glomerular Filt Rate 60; Glucose 104 mg/dL (70-99); Osmolality Calculated 302 mOsm/kg (285-295); Sodium 145 mmol/L (136-145); Total Protein 7.9 g/dL (6.4-8.2)
[2023-03-21] MEDS: LEVOTHYROXINE SODIUM 75 MCG TABLET BY MOUTH (06:05)
[2023-03-21] MEDS: ACETAMINOPHEN 325 MG TABLET 650 MG PO (06:22)
--- NOTE | 2023-03-21 06:42 | PC.NURSE ---
DUMPSTER OPERATOR documentation reviewed and verified by charge nurse.
[2023-03-21] MEDS: HYDROcodone/acetaminophen (*CRX) 5-325 MG TABLET 1 TAB PO (07:22)
[2023-03-21 07:49] VITALS: BP 129/62; PULSE 77; RESP 18; TEMP 36.4; O2SAT 89
[2023-03-21 07:51] LABS: Glucose Point of Care 81 mg/dl (65-105)
[2023-03-21 08:14] VITALS: PULSE 90
[2023-03-21] MEDS: LINEZOLID 600 MG TABLET PO (08:14)
[2023-03-21] MEDS: GABAPENTIN 300 MG CAPSULE PO (08:14)
[2023-03-21] MEDS: carvediloL 12.5 MG TABLET PO (08:14)
[2023-03-21] MEDS: SPIRONOLACTONE 25 MG TABLET PO (08:15)
[2023-03-21] MEDS: GLIMEPIRIDE 1 MG TABLET PO (08:15)
[2023-03-21] MEDS: lamoTRIgine 100 MG TABLET PO (08:15)
[2023-03-21] MEDS: FUROSEMIDE 40 MG TABLET PO (08:15)
[2023-03-21] MEDS: TOLNAFTATE 1% POWDER 45 GM BTL 1 APPLIC TOPICAL (08:16)
--- NOTE | 2023-03-21 10:52 | PC.NURSE ---
Report called to Teresa at [facility] ([place], [place]) in [place]. Teresa voiced understanding of patient's current condition and abilities.
--- NOTE | 2023-03-21 10:58 | PM.DS ---
DS: Admitting Diagnosis Discharge Date 03/21/2023 Admitting Diagnosis generalized weakness congestive heart failure cellulitis due to MRSA anemia type 2 diabetes mellitus without complication chronic renal insufficiency stage III essential hypertension hypothyroidism moderate major depression severe obesity DS: Discharge Diagnosis Discharge Diagnosis (1) Generalized weakness: Code(s): R53.1 - Weakness Status: Acute (2) Cellulitis due to MRSA: Code(s): L03.90 - Cellulitis, unspecified; B95.62 - Methicillin resistant Staphylococcus aureus infection as the cause of diseases classified elsewhere Status: Acute (3) CHF (congestive heart failure), NYHA class I: Code(s): I50.9 - Heart failure, unspecified Status: Acute (4) Anemia: Code(s): D64.9 - Anemia, unspecified Status: Acute (5) Type 2 diabetes mellitus without complications: Code(s): E11.9 - Type 2 diabetes mellitus without complications Status: Acute (6) Chronic renal insufficiency, stage III (moderate): Code(s): N18.30 - Chronic kidney disease, stage 3 unspecified Status: Acute (7) Essential (primary) hypertension: Code(s): I10 - Essential (primary) hypertension Status: Acute (8) Hypothyroidism, unspecified: Code(s): E03.9 - Hypothyroidism, unspecified Status: Acute (9) Moderate major depression: Code(s): F32.1 - Major depressive disorder, single episode, moderate Status: Acute (10) Morbid obesity: Code(s): E66.01 - Morbid (severe) obesity due to excess calories Status: Acute DS: Summary Hospital Course Reason for hospitalization: Patient was admitted under observation status due to generalized weakness and unable to ambulate at home. On day of admission patient had been discharged from [facility] by EMS to take her home. Review of chart shows at rehab placement was recommended but patient declined repeated offers however, once patient arrived at her home due to her significant morbid obesity EMS was unable to carry her up her 6 stairs and she was unable to get off the stretcher and walk up the 6 stairs into the home. EMS could not leave patient so they brought her to closest emergency department until arrangements could be made for rehabilitation placement. Hospital Course: Patient was admitted and medications were continued. She is on new medication of linezolid for MRSA cellulitis of the pannus. For this reason, Trintellix is on hold until linezolid prescription is completed. Patient was placed in bariatric bed. Physical therapy and occupational therapy evaluated patient and case management [facility] had gone after she had been discharged from [place] a month or two ago. Thankfully [facility] was able to accommodate patient and EMS transfer was arranged. Status at Discharge Cognitive/behavioral status at discharge: awake, alert, oriented and pleasant Functional status at discharge: uses cane/walker ( unable to get up and down on her own without assistance) Time Spent with Patient Time attestation: Total time spent providing and/or coordinating discharge services: Time spent: Greater than 30 minutes Exam Const: General: no acute distress Nutritional Appearance: obese (BMI 93.8) morbidly obese Orientation/consciousness: patient oriented x3 Limitations: no limitations HENMT: Head: normal to inspection Ears: external ears normal Face/Nose/Sinus: Normal external nose present Face and sinus: normal facial exam Mouth: Yes Normal oral and palatal mucosa present Throat: posterior oropharynx normal Eyes: Conjunctivae: conjunctivae normal Pupils: Equal, round and reactive pupils present EOM: EOMs intact bilaterally Direct Ophthalmoscopy: no photophobia Neck: Neck: normal visual inspection, no lymphadenopathy and no meningeal signs Chest: Chest palpation & inspection: normal inspec
[2023-03-21 11:21] LABS: Glucose Point of Care 108 mg/dl (65-105)
--- NOTE | 2023-03-21 11:39 | PC.NURSE ---
[facility] called to page for ambulance to transport patient home.
--- NOTE | 2023-03-21 12:20 | PC.NURSE ---
[facility] arrived to [facility] pick[facility] patient for transfer to [facility] in [place]. Report given to counterintelligence specialist prior to transfer. Patient required 3 assist for pivot transfer to stretcher. Discharge instructions given to EMS for transfer to Facility. Discharge instructions faxed to facility. Report taken at [facility] by Teresa on [address]. Personal items sent with patient.
[2023-03-21 12:24] VITALS: O2SAT 90
== END 2023-03-21 12:20 ==
LOC: CHSED 18:39 → CHS2ND 19:33
PROVIDERS: Nurse Practitioner; Admitting Provider Internal Medicine; Emergency Provider Internal Medicine Critical Care Medicine; PCP Family Medicine; Visit Provider Internal Medicine
DX: R53.1 Weakness (principal); I13.0 Hypertensive heart and chronic kidney disease with heart failure and stage 1 through stage 4 chronic kidney disease, or unspecified chronic kidney disease; I50.812 Chronic right heart failure; N18.30 Chronic kidney disease, stage 3 unspecified; E11.22 Type 2 diabetes mellitus with diabetic chronic kidney disease; L03.311 Cellulitis of abdominal wall; I89.0 Lymphedema, not elsewhere classified; I87.2 Venous insufficiency (chronic) (peripheral); E61.2 Magnesium deficiency; E03.9 Hypothyroidism, unspecified; E66.01 Morbid (severe) obesity due to excess calories; E53.8 Deficiency of other specified B group vitamins; E55.9 Vitamin D deficiency, unspecified; K58.0 Irritable bowel syndrome with diarrhea; B95.62 Methicillin resistant Staphylococcus aureus infection as the cause of diseases classified elsewhere; G60.9 Hereditary and idiopathic neuropathy, unspecified; F41.9 Anxiety disorder, unspecified; F32.A Depression, unspecified; Z68.45 Body mass index [BMI] 70 or greater, adult; Z86.010 Personal history of colon polyps
CPT/HCPCS: 36415; 80053; 82948; 85025; 97161; 97530; 99285; A9270; G0378; J1650

== ENCOUNTER 2023-03-25 08:27 | Emergency (ER) | payer MEDICARE, SELFPAY ==
--- NOTE | ~2023-03-25 | XR_ITS ---
EXAMINATION: XR chest 1V portable DATE: 03/25/2023 09:49 INDICATION: Shortness of breath. TECHNIQUE: A single frontal view of the chest was obtained on 2 radiographs. COMPARISON: Chest view 03/14/2023, CT abdomen and pelvis 06/14/2016 FINDINGS: Sensitivity is decreased by obesity. There is a diffuse interstitial pattern, consistent mi ld pulmonary edema. No pleural effusion or pneumothorax. Cardiomegaly is noted. IMPRESSION: 1. Mild pulmonary edema. 2. Cardiomegaly. Reviewed, dictated and finalized at location A.
[2023-03-25 08:30] VITALS: BP 149/79; PULSE 86; RESP 20; TEMP 36.3; O2SAT 94
--- NOTE | 2023-03-25 08:34 | ECG_ITS ---
Measurements Intervals [place] Rate: 82 P: 37 HI: 195 QRS: -37 QRSD: 102 T: 58 QT: 373 QTc: 436 Interpretive Statements SINUS RHYTHM MARKED LEFT AXIS DEVIATION [QRS AXIS < -30] PATTERN CONSISTENT WITH PULMONARY DISEASE INCOMPLETE RIGHT BUNDLE BRANCH BLOCK COMPARED TO ECG 03/14/2023 17:59:08 NO SIGNIFICANT CHANGES Electronically Signed On 03-25-2023 14:39:17 CDT by Leesa Mora M.D.
--- NOTE | 2023-03-25 08:36 | ED.GENADULT ---
HPI - General Adult General Chief complaint: Shortness of Breath/Dyspnea Stated complaint: sob History of Present Illness HPI narrative: 48-year-old female presented the ED from [facility] for evaluation of increased shortness of breath. Patient does have history of type 2 diabetes hypertension severe obesity, lymphedema and CHF. Patient also has history of chronic kidney disease. Patient was recently admitted at [facility] and declined rehab placement and was discharged to home. After getting home patient found she was unable to care for self and was transported to [facility] where ultimately she was admitted to [facility]. Patient states being at [facility] she has been on 1 to 2 L of oxygen by nasal cannula. Patient states over the last 24 hours she has had worsening shortness of breath. Patient did have her oxygen increased last night. Patient denies any chest pain but does report increased shortness of breath with lying flat. Patient states this does feel like fluid overload to her. Related Data Home Medications Medication Instructions Recorded Confirmed gabapentin 300 mg capsule 900 mg PO DAILY 03/14/23 03/19/23 levothyroxine 75 mcg tablet 75 mcg DAILY 03/14/23 03/19/23 vortioxetine 20 mg tablet 20 mg PO DAILY 03/14/23 03/19/23 (Trintellix) Allergies Allergy/AdvReac Type Severity Reaction Status Date / Time Sulfa (Sulfonamide Allergy Mild HIVES, Verified 03/14/23 14:58 Antibiotics) SWELLING sulfamethoxazole Allergy Mild HIVES, Verified 03/14/23 14:58 SWELLING sulfamethizole Allergy Unknown Hives Verified 03/14/23 14:58 trimethoprim Allergy Unknown Hives Verified 03/14/23 14:58 Review of Systems Review of Systems: All systems reviewed & are unremarkable except as noted in HPI and below PMFSH Past Medical History Medical History Anxiety CHF (congestive heart failure), NYHA class I Essential (primary) hypertension H/O adenomatous polyp of colon Hypertension associated with diabetes Hypothyroidism, unspecified Idiopathic peripheral neuropathy Irritable bowel syndrome with diarrhea Lymphedema of both lower extremities Magnesium deficiency Moderate major depression Morbid obesity Psoriasis Stasis dermatitis Type 2 diabetes mellitus without complications Vitamin B12 deficiency Vitamin D deficiency Surgical History Surgical History H/O arthroscopic knee surgery H/O section X1 H/O dilation and curettage History of tonsillectomy and adenoidectomy Hx of cholecystectomy Family History Family History Mother Hypertension Sibling Hypertension Family history of congestive heart failure Other Family history of arthritis Social History Social History Social History: She lives alone and has one child. She is single and disabled. code status full code Smoking status: Never smoker Second hand tobacco smoke exposure: No Alcohol intake: never Substance use: never Substance use type: does not use Lack of Transportation: No Lack of Food: Never True Current Housing: I Have Housing Concerned About Future Housing: No Difficulty Paying Gas/Electric Bills: No Difficulty Paying for Meds: No Currently Unemployed: No Education: High School Diploma/GED Difficulty w/ Childcare or Family Care: No Gender identity (if verbalized by the patient): Female Spiritual care concerns: No Agree to blood products: Yes Exam Narrative: APPEARANCE: Well appearing, no pain, no distress, well-nourished. HEAD: normocephalic, atraumatic. EYES: PERRLA/EOMI, conjunctivae clear. NOSE: Normal no drainage EARS:TMS clear with good light reflex. THROAT: Pharynx clear, no exudate. NECK: Supple. No adenopathy, no masses.
[2023-03-25 08:37] VITALS: PULSE 78; O2SAT 97
--- NOTE | 2023-03-25 08:50 | PC.NURSE ---
attempt to cath pt unsuccessful
[2023-03-25 08:52] LABS: Basophils Percent Auto 0.6 % (0.2-1.2); Eosinophils Absolute Auto 0.1 K/mm3 (0-0.3); Eosinophils Percent Auto 1.5 % (0-4.4); Hematocrit 33.6 % (37.0-47.0); Hemoglobin 9.2 g/dL (12.0-15.0); Immature Granulocyte Absolute 0.01 K/mm3 (0.00-0.031); Immature Granulocyte Percent A 0.2 % (0-0.5); Lymphocytes Absolute Auto 1.14 K/mm3 (0.9-3.2); Lymphocytes Percent Auto 23.8 % (18.3-44.2); Mean Corpuscular HGB Conc 27.4 g/dl (32-36); Mean Corpuscular Hemoglobin 24.9 pg (26-34); Mean Corpuscular Volume 90.8 fl (80-100); Mean Platelet Volume 9.8 fl (7.4-10.4); Monocytes Absolute Auto 0.4 K/mm3 (0.1-0.6); Monocytes Percent Auto 8.5 % (2.6-8.5); Neutrophils Absolute Auto 3.1 K/mm3 (1.3-6.7); Neutrophils Percent Auto 65.4 % (45.5-73.1); Platelet Count Result 151 k/mm3 (150-375); White Blood Count 4.8 K/mm3 (4.5-10.0)
[2023-03-25 09:05] LABS: INR 1.1
[2023-03-25 09:14] LABS: Alanine Aminotransferase 18 U/L (6-35); Albumin Level 3.5 g/dL (3.5-5.1); Alkaline Phosphatase 74 U/L (38-126); Aspartate Amino Transferase 37 U/L (14-36); Bilirubin,Total 0.7 mg/dL (0.2-1.3); Blood Urea Nitrogen 20 mg/dL (7-17); Calcium 8.6 mg/dL (8.4-10.2); Carbon Dioxide > 40 mmol/L (22-30); Chloride 91 mmol/L (98-107); Estimated CRCL calculation 119 ml/min; Estimated Glomerular Filt Rate 59; Glucose 106 mg/dL (65-110); Sodium 140 mmol/L (137-145)
[2023-03-25 09:16] LABS: Platelet Estimate Adequate (Adequate)
[2023-03-25 09:18] LABS: Hypochromasia 2+ (NORMAL); Schistocytes None Seen (NORMAL); Stomatocytes 1+ (NORMAL)
[2023-03-25 09:19] LABS: NT Pro B Type Natriuretic Pept 954 pg/mL (19.9-100)
[2023-03-25] MEDS: FUROSEMIDE INJ 40 MG/4 ML VIAL IV PUSH (10:24)
[2023-03-25 10:45] VITALS: BP 141/68; PULSE 84; RESP 20; O2SAT 99
--- NOTE | 2023-03-25 11:00 | PC.NURSE ---
[facility] contacted for transport back to [place]. extended eta due to need of additional menpower
[2023-03-25 13:00] VITALS: PULSE 88; RESP 20; O2SAT 100
[2023-03-25 14:05] VITALS: PULSE 89; RESP 20; O2SAT 100
== END 2023-03-25 14:05 ==
PROVIDERS: Emergency Provider Emergency Medicine; PCP Family Medicine
DX: I11.0 Hypertensive heart disease with heart failure (principal); I50.9 Heart failure, unspecified; I15.2 Hypertension secondary to endocrine disorders; I89.0 Lymphedema, not elsewhere classified; E11.42 Type 2 diabetes mellitus with diabetic polyneuropathy; E66.01 Morbid (severe) obesity due to excess calories; Z68.45 Body mass index [BMI] 70 or greater, adult; E03.9 Hypothyroidism, unspecified; E53.8 Deficiency of other specified B group vitamins; E55.9 Vitamin D deficiency, unspecified; I87.2 Venous insufficiency (chronic) (peripheral); K58.0 Irritable bowel syndrome with diarrhea; Z86.010 Personal history of colon polyps; Z90.49 Acquired absence of other specified parts of digestive tract; Z79.84 Long term (current) use of oral hypoglycemic drugs; I51.7 Cardiomegaly; J81.1 Chronic pulmonary edema; F41.9 Anxiety disorder, unspecified; R94.31 Abnormal electrocardiogram [ECG] [EKG]; I45.10 Unspecified right bundle-branch block
CPT/HCPCS: 36415; 71045; 80053; 83880; 85025; 85610; 85730; 93005; 96374; 99284; J1940

== ENCOUNTER 2023-03-26 21:36 | Inpatient (IN) | payer MEDICARE, SELFPAY ==
--- NOTE | ~2023-03-26 | US_ITS ---
EXAMINATION: US venous doppler [facility] DATE: 03/27/2023 11:48 INDICATION: Upper extremity swelling TECHNIQUE: Grayscale ultrasound images without and with compression and Doppler ultrasound images of the bilateral upper extremity veins were obtained. COMPARISON: None. FINDINGS: The right internal jugular vein, subclavian vein, axillary vein, brachial veins, basilic vein, cephal ic vein, radial vein, and ulnar vein are patent. The left internal jugular vein, subclavian vein, axillary vein, brachial veins, basilic vein, cephali c vein, radial vein, and ulnar vein are patent. IMPRESSION: 1. No evidence of deep venous thrombosis. Reviewed, dictated and finalized at location L.
--- NOTE | ~2023-03-26 | XR_ITS ---
EXAMINATION: XR chest 1V portable DATE: 03/28/2023 08:04 INDICATION: Fluid overload and fever TECHNIQUE: frontal view of the chest was obtained. COMPARISON: Chest radiograph dated 03/27/2023 FINDINGS: Cardiomegaly with pulmonary vascular congestion. Airspace opacities in the perihilar and lower lung z ones. No pneumothorax or definitive pleural effusion. Left upper extremity peripherally inserted cent ral venous catheter (PICC) tip at the caudal superior vena cava. IMPRESSION: 1. Persistent opacities in bilateral perihilar and lower lung zones most likely or combination mild p ulmonary edema and atelectasis although differential includes pneumonia. 2. Cardiomegaly. Reviewed, dictated and finalized at location A. IMPRESSION: 1. Persistent opacities in bilateral perihilar and lower lung zones most likely or combination mild pulmonary edema and atelectasis although differential incl udes pneumonia. 2. Cardiomegaly.
--- NOTE | ~2023-03-26 | XR_ITS ---
EXAMINATION: XR chest 1V portable Exam Date/Time: 03/26/2023 22:10 CDT HISTORY: INCREASING Shortness of breath HX CHF Comparison: 03/25/2023. RESULT: Lines, tubes, and devices: None. Lungs and pleura: Persistent low volumes. Worsening bilateral reticular opacities. Worsening small b ilateral effusions. Cardiomediastinal silhouette: Stable. Other: No acute osseous or upper abdominal finding. IMPRESSION: Worsening pulmonary edema, now moderate. Small bilateral effusions. Reviewed, dictated and finalized at location K.
--- NOTE | ~2023-03-26 | US_ITS ---
EXAMINATION: US venous doppler [facility] DATE: 03/27/2023 11:48 INDICATION: Lower limb swelling TECHNIQUE: Ya scale images without and with compression and Doppler images of the bilateral lower e xtremity veins were obtained. COMPARISON: None FINDINGS: Examination is markedly limited by lower limb edema and body habitus. There is grossly no venous thrombosis in either lower extremity. IMPRESSION: 1. Markedly limited examination with grossly no venous thrombosis identified. Reviewed, dictated and finalized at location L.
--- NOTE | ~2023-03-26 | XR_ITS ---
EXAMINATION: XR chest PICC line DATE: 03/27/2023 13:49 INDICATION: Central line placement. TECHNIQUE: A single frontal view of the chest was obtained. COMPARISON: Chest single view 03/26/2023, CT abdomen and pelvis 06/14/2016 FINDINGS: There is a diffuse interstitial pattern in the lungs. There are airspace opacities at the l fredrick bases. There is a small right pleural effusion. No pneumothorax. Cardiomegaly is noted. A left up per extremity peripherally inserted central venous catheter (PICC) is seen with tip at the superior c avoatrial junction. IMPRESSION: 1. PICC tip at the superior cavoatrial junction. 2. Improved diffuse lung disease, likely mild pulmonary edema and basilar atelectasis. 3. Cardiomegaly. Reviewed, dictated and finalized at location A. IMPRESSION: 1. PICC tip at the superior cavoatrial junction. 2. Improved diffuse lung disease, likely mild pulmonary edema and basilar atele ctasis. 3. Cardiomegaly.
[2023-03-26 21:35] VITALS: BP 125/52; PULSE 103; RESP 21; TEMP 36.4; O2SAT 95
--- NOTE | 2023-03-26 21:49 | ECG_ITS ---
Measurements Intervals [place] Rate: 102 P: 28 NV: 184 QRS: -36 QRSD: 105 T: 76 QT: 343 QTc: 448 Interpretive Statements SINUS TACHYCARDIA MARKED LEFT AXIS DEVIATION [QRS AXIS < -30] LOW QRS VOLTAGE IN PRECORDIAL LEADS [QRS DEFLECTION < 1.0 mV IN CHEST LEADS] INCOMPLETE RIGHT BUNDLE BRANCH BLOCK [90+ ms QRS DURATION, TERMINAL R IN V1/V2, 40+ ms S IN I/aVL/V4/V5/V6] ABNORMAL ECG COMPARED TO ECG 03/25/2023 08:36:35 NO SIGNIFICANT CHANGE Electronically Signed On 03-27-2023 13:12:57 CDT by Ezio Umaña M.D.
[2023-03-26 21:52] VITALS: RESP 22
[2023-03-26 22:11] LABS: Basophils Percent Auto 0.7 % (0.2-1.2); Eosinophils Percent Auto 0.2 % (0-4.4); Hematocrit 37.3 % (37.0-47.0); Hemoglobin 9.5 g/dL (12.0-15.0); Immature Granulocyte Percent A 1.7 % (0-0.5); Lymphocytes Absolute Auto 0.67 K/mm3 (0.9-3.2); Lymphocytes Percent Auto 11.1 % (18.3-44.2); Mean Corpuscular HGB Conc 25.5 g/dl (32-36); Mean Corpuscular Hemoglobin 24.7 pg (26-34); Mean Corpuscular Volume 96.9 fl (80-100); Mean Platelet Volume 9.3 fl (7.4-10.4); Monocytes Absolute Auto 0.6 K/mm3 (0.1-0.6); Monocytes Percent Auto 10.2 % (2.6-8.5); Neutrophils Absolute Auto 4.6 K/mm3 (1.3-6.7); Neutrophils Percent Auto 76.1 % (45.5-73.1); Nucleated Red Blood Cells Perc 0.3 % (0.0-0.2); Platelet Count Result 169 k/mm3 (150-375); Red Blood Count 3.85 M/mm3 (4.2-5.4); Red Cell Distribution Width 19.9 % (11.5-14.5); White Blood Count 6.1 K/mm3 (4.5-10.0)
[2023-03-26 22:21] LABS: Magnesium 2.4 mg/dL (1.6-2.3)
[2023-03-26 22:24] LABS: INR 1.1; Prothrombin Time 14.9 Seconds (11.1-14.7)
[2023-03-26 22:25] LABS: Partial Thromboplastin Time 31.5 SECONDS (22.3-36.8)
[2023-03-26 22:30] LABS: NT Pro B Type Natriuretic Pept 2120 pg/mL (19.9-100)
[2023-03-26 22:31] LABS: Hypochromasia 1+ (NORMAL); Platelet Estimate Adequate (Adequate); Stomatocytes 2+ (NORMAL)
[2023-03-26 22:32] LABS: Large Platelets Present; Schistocytes None Seen (NORMAL)
[2023-03-26 22:33] LABS: Troponin I < 0.012 ng/mL (0.000-0.034)
[2023-03-26 22:48] LABS: Influenza A QL RT-PCR Negative (Negative); Influenza B QL RT-PCR Negative (Negative); Procalcitonin 0.1 ng/mL; RSV RNA, RT-PCR Negative (Negative); SARS-CoV-2 RNA PCR Negative (Negative)
[2023-03-26 22:49] LABS: Alanine Aminotransferase 21 U/L (6-35); Albumin Level 3.7 g/dL (3.5-5.1); Alkaline Phosphatase 85 U/L (38-126); Aspartate Amino Transferase 33 U/L (14-36); Bilirubin,Total 0.7 mg/dL (0.2-1.3); Blood Urea Nitrogen 21 mg/dL (7-17); Calcium 8.7 mg/dL (8.4-10.2); Carbon Dioxide > 40 mmol/L (22-30); Chloride 96 mmol/L (98-107); Estimated CRCL calculation 86 ml/min; Estimated Glomerular Filt Rate 40; Glucose 168 mg/dL (65-110); Potassium 4.5 mmol/L (3.4-5.0); Sodium 138 mmol/L (137-145)
[2023-03-26 22:53] LABS: Alveolar/Arterial O2 Gradient 468.2 mmHg; Base Excess ABG 8.6 mEq/l (+/-2.0); Fractional Inspired Oxygen 100 %; HCO3 ABG 43.2 mEq/l (22.0-26.0); Oxygen Content ABG 14.1 %vol (16.0-22.0); Oxygen Saturation ABG 88.6 % (95.0-100.0); Oxyhemoglobin 92.2 % THb (90.0-100.0); PO2 ABG 83.3 mmHg (80.0-100.0); PO2 FiO2 Ratio Arterial Blood 0.83 %; Total Hemoglobin 10.8 g/dL (12.0-18.0)
[2023-03-26 22:55] LABS: pH ABG 7.045 (7.350-7.450)
[2023-03-26 22:56] LABS: Device NON-REBREATHER MASK; Modified Allen's Test Pass; PCO2 ABG 161.5 mmHg (35.0-45.0); Site Drawn LEFT RADIAL
[2023-03-26 23:00] VITALS: PULSE 101; RESP 24; O2SAT 99
--- NOTE | 2023-03-26 23:00 | PC.NURSE ---
Senior catheter placed by this RN. Vaginal bleeding was noted during insertion, ED provider Dr. Ding made aware. No fuirther orders given at this time. Senior patent and draining.
[2023-03-26 23:02] VITALS: BP 122/43; PULSE 98; RESP 20; O2SAT 98
[2023-03-26 23:03] LABS: Appearance Urine Cloudy (Clear); Bacteria Urine None Seen /hpf; Bilirubin Urine Negative (Negative); Blood Urine 2+ (Negative); Color Urine Yellow (Yellow); Glucose Urine UA Negative (Negative); Ketones Urine Negative (Negative); Leukocyte Esterase Ur Negative LEU/UL (Negative); Need Manual Microscopic Reviewed; Nitrate Urine Negative (Negative); Protein Urine 1+ mg/dL (Negative); Specific Grav Ur 1.012 (1.001-1.035); Squamous Epithelial Cell Urine Occasional /hpf (Few); Urobilinogen Urine 0.2 mg/dL (<2.0); WBC Urine 0-5 /hpf
[2023-03-26 23:18] LABS: Add Urine Microscopic? YES
--- NOTE | 2023-03-26 23:48 | ED.GENADULT ---
HPI - General Adult General Chief complaint: Altered Mental Status Stated complaint: AMS Time Seen by Provider: 03/26/23 21:42 History of Present Illness HPI narrative: Patient 48-year-old female who presents the emergency department with chief complaint of shortness of breath. Patient has history of morbid obesity and also congestive heart failure patient was recently seen in the emergency department for CHF and was [facility] after she was having worsening shortness of breath and decreased responsiveness. Patient does have prior history of developing pulmonary edema and also respiratory failure in the past. History is limited due to altered mental status Related Data Home Medications Medication Instructions Recorded Confirmed gabapentin 300 mg capsule 900 mg PO DAILY 03/14/23 03/19/23 levothyroxine 75 mcg tablet 75 mcg DAILY 03/14/23 03/19/23 vortioxetine 20 mg tablet 20 mg PO DAILY 03/14/23 03/19/23 (Trintellix) Allergies Allergy/AdvReac Type Severity Reaction Status Date / Time Sulfa (Sulfonamide Allergy Mild HIVES, Verified 03/14/23 14:58 Antibiotics) SWELLING sulfamethoxazole Allergy Mild HIVES, Verified 03/14/23 14:58 SWELLING sulfamethizole Allergy Unknown Hives Verified 03/14/23 14:58 trimethoprim Allergy Unknown Hives Verified 03/14/23 14:58 Review of Systems Review of Systems: A 10 system review of systems was completed on the patient and is negative except for what is stated in the HPI. Nursing and ancillary documentation was reviewed. [facility] Past Medical History Medical History Anxiety CHF (congestive heart failure), NYHA class I Essential (primary) hypertension H/O adenomatous polyp of colon Hypertension associated with diabetes Hypothyroidism, unspecified Idiopathic peripheral neuropathy Irritable bowel syndrome with diarrhea Lymphedema of both lower extremities Magnesium deficiency Moderate major depression Morbid obesity Psoriasis Stasis dermatitis Type 2 diabetes mellitus without complications Vitamin B12 deficiency Vitamin D deficiency Surgical History Surgical History H/O arthroscopic knee surgery H/O section X1 H/O dilation and curettage History of tonsillectomy and adenoidectomy Hx of cholecystectomy Family History Family History Mother Hypertension Sibling Hypertension Family history of congestive heart failure Other Family history of arthritis Social History Social History Social History: She lives alone and has one child. She is single and disabled. code status full code Smoking status: Never smoker Second hand tobacco smoke exposure: No Alcohol intake: never Substance use: never Substance use type: does not use Lack of Transportation: No Lack of Food: Never True Current Housing: I Have Housing Concerned About Future Housing: No Difficulty Paying Gas/Electric Bills: No Difficulty Paying for Meds: No Currently Unemployed: No Education: High School Diploma/GED Difficulty w/ Childcare or Family Care: No Gender identity (if verbalized by the patient): Female Spiritual care concerns: No Agree to blood products: Yes Exam Narrative: GENERAL: Morbidly obese decreased responsiveness and opens eyes spontaneously HEAD: Normocephalic, atraumatic. EYES: PERRLA and EOMI. ENT: Nares clear, no rhinorrhea or epistaxis. Mucous membranes moist. NECK: Supple. CHEST: Clear to auscultation. No respiratory distress. HEART: Regular rate and rhythm. No murmur heard. Normal peripheral pulses. ABDOMEN: Soft, nontender, nondistended, normal active bowel sounds. EXTREMITIES: Normal range of motion. No edema. SKIN: Warm, dry, no rash.
[2023-03-27] VITALS (26 sets, daily range): BP systolic 97–159; BP diastolic 24–91; PULSE 75–117; RESP 15–26; TEMP 36.6–37.7; O2SAT 92–100; BMI 96.1
[2023-03-27] MEDS: FUROSEMIDE INJ 40 MG/4 ML VIAL IV PUSH ×4 (00:11→22:29)
[2023-03-27 00:53] LABS: Alveolar/Arterial O2 Gradient 299.6 mmHg; Base Excess ABG 13.5 mEq/l (+/-2.0); Fractional Inspired Oxygen 70 %; HCO3 ABG 46.1 mEq/l (22.0-26.0); PO2 ABG 58.3 mmHg (80.0-100.0); PO2 FiO2 Ratio Arterial Blood 0.83 %; Total Hemoglobin 10.7 g/dL (12.0-18.0)
[2023-03-27 00:56] LABS: pH ABG 7.163 (7.350-7.450)
[2023-03-27 00:57] LABS: PCO2 ABG 131.4 mmHg (35.0-45.0)
[2023-03-27 00:58] LABS: Device NON-INVASIVE VENT; Modified Allen's Test Pass; Oxyhemoglobin 86.4 % THb (90.0-100.0); Site Drawn LEFT RADIAL
[2023-03-27 00:59] LABS: Non-Invasive Expiratory Pressure 8 CMH2O; Non-Invasive Inspiratory Pressure 24 CMH2O; Non-Invasive Vent Rate 24 /MIN
--- NOTE | 2023-03-27 01:12 | PM.IMHP ---
H&P: HPI History of Present Illness Date/Time: 03/27/23 01:12 Chief Complaint: Chief complaint shortness of breath Narrative: This is a 48-year-old female who recently has had 2 readmissions in the past who is presenting to the ER with a chief complaint of shortness of breath. The patient has a history of morbid obesity and congestive heart failure. She was transferred from the residential for worsening shortness of breath and decreased responsiveness. History of the ER was limited due to altered mental status. The patient's past medical history includes type 2 diabetes, hypertension, severe obesity, lymphedema, congestive heart failure. She also has CKD. The patient's recent admissions include declining rehab placement, transferred to [facility], and then admitting to [facility]. At baseline the patient is on 1-2 L of oxygen by nasal cannula at the residential. The patient was recently treated for MRSA cellulitis of the abdomen/pannus with linezolid about 1 week ago. In the ER the patient is noted to have a weight of 240 EKGs. ABG on admission to the ER is pH 7.05, pCO2 of 161. PO2 of 83. The patient was placed on BiPAP after the CABG. Now still on BiPAP she has improved to a pH of 7.1, pCO2 131, PO2 of 58. We will increase this patient's oxygen on the BiPAP. In the ER the patient also received 1 dose of 40 mg IV Lasix for pulmonary edema seen on the chest x-ray. The patient's current serology was negative for influenza A/B, RSV, COVID 19. Her troponin is also negative. LFTs are normal. We do not have an EKG from today. EKG from yesterday shows sinus rhythm, marked left axis deviation, incomplete right bundle-branch block. Echocardiogram from 03-15 with contrast shows normal LV size with mild concentric hypertrophy, systolic function 60-65%, normal diastolic function. Right ventricle is not visualized but mildly enlarged. Hypokinesis of the right ventricle. Left atrium mildly enlarged. No significant valvular disease. PT was not able to give a lot of symptoms while she was on the bipap. She is more awake now, but wanted to sleep. She is easily arousable. Review of Systems Review of Systems: Patient is poorly responsive with her mentation. Mentation improved after bipap. [facility] Past Medical History Medical History Anxiety CHF (congestive heart failure), NYHA class I Essential (primary) hypertension H/O adenomatous polyp of colon Hypertension associated with diabetes Hypothyroidism, unspecified Idiopathic peripheral neuropathy Irritable bowel syndrome with diarrhea Lymphedema of both lower extremities Magnesium deficiency Moderate major depression Morbid obesity Psoriasis Stasis dermatitis Type 2 diabetes mellitus without complications Vitamin B12 deficiency Vitamin D deficiency Surgical History Surgical History H/O arthroscopic knee surgery H/O section X1 H/O dilation and curettage History of tonsillectomy and adenoidectomy Hx of cholecystectomy Family History Family History Mother Hypertension Sibling Hypertension Family history of congestive heart failure Other Family history of arthritis Social History Social History Social History: She lives alone and has one child. She is single and disabled. code status full code Smoking status: Never smoker Second hand tobacco smoke exposure: No Alcohol intake: never Substance use: never Substance use type: does not use Lack of Transportation: No Lack of Food: Never True Current Housing: I Have Housing Concerned About Future Housing: No Difficulty Paying Gas/Electric Bills: No Difficulty Paying for Meds: No Currently Unemployed: No Education: High School
[2023-03-27 01:30] LABS: Troponin I < 0.012 ng/mL (0.000-0.034)
[2023-03-27 02:06] LABS: D Dimer 1.02 ug/mL (<0.48)
[2023-03-27] MEDS: POTASSIUM CHLORIDE INJ 40 MEQ in SODIUM CHLORIDE 0.9% IV 500 ML 130 MEQ IVPB (02:18)
[2023-03-27 03:43] LABS: Alveolar/Arterial O2 Gradient 172.5 mmHg; Base Excess ABG 6.5 mEq/l (+/-2.0); Fractional Inspired Oxygen 50 %; HCO3 ABG 36.3 mEq/l (22.0-26.0); Oxygen Content ABG 14.1 %vol (16.0-22.0); Oxygen Saturation ABG 93.5 % (95.0-100.0); PO2 ABG 83.5 mmHg (80.0-100.0); PO2 FiO2 Ratio Arterial Blood 1.67 %; Total Hemoglobin 10.5 g/dL (12.0-18.0)
--- NOTE | 2023-03-27 03:44 | ADMGEN ---
This patient, Peg Nicole, was admitted to Intensive Care Unit-10. Patient/family oriented to hospital policies and general routines including ID bracelet, bed and alarms, visiting hours, pain management, procedures, bathroom and other care routines, personal items, smoking policy, room service/diet, and visiting hours. Information on how to activate the Rapid Response Team has been discussed. Patient/Family are encouraged to report perceived risks to care and to ask questions if they do not understand what they are told or what they should do.
[2023-03-27 03:48] LABS: Modified Allen's Test Pass; PCO2 ABG 89.3 mmHg (35.0-45.0); Site Drawn RIGHT RADIAL
[2023-03-27 03:49] LABS: Device NON-INVASIVE VENT; Non-Invasive Vent Rate 24 /MIN
[2023-03-27 03:50] LABS: Non-Invasive Expiratory Pressure 8 CMH2O; Non-Invasive Inspiratory Pressure 24 CMH2O
[2023-03-27] MEDS: ENOXAPARIN 120 MG/0.8 ML SYRINGE SUB-Q ×2 (04:04→15:19)
[2023-03-27] MEDS: ENOXAPARIN 60 MG/0.6 ML SYRINGE SUB-Q ×2 (04:08→15:19)
--- NOTE | 2023-03-27 09:38 | PM.IMPN ---
Progress Note: A&P Assessment and Plan (1) Acute exacerbation of CHF (congestive heart failure): Code(s): I50.9 - Heart failure, unspecified Status: Acute Assessment and Plan: Significant bilateral pulmonary edema on chest X . Patient is very wet on chest x-ray Slight worsening of pulmonary edema from the day prior Need to be aggressive with diuretics. The patient may have high-output heart failure from obesity and chronic hypoxemia and hypercapnia. Recommending consulting Cardiology for this patient. Continue lasix 40 mg iv q8h (2) Obesity hypoventilation syndrome: Code(s): E66.2 - Morbid (severe) obesity with alveolar hypoventilation Status: Acute Assessment and Plan: Patient should be started on BiPAP on BiPAP through the night to improve, has changed to AVAPS point neurologist recommendation Follow-up ABG (3) Acute respiratory failure with hypoxia and hypercarbia: Code(s): J96.01 - Acute respiratory failure with hypoxia; J96.02 - Acute respiratory failure with hypercapnia Status: Acute Assessment and Plan: Negative resulting from obesity hypoventilation syndrome and acute heart failure On AVAPS (4) Metabolic alkalosis with respiratory acidosis: Code(s): E87.4 - Mixed disorder of acid-base balance Status: Acute Assessment and Plan: Give 1 dose of potassium chloride May need to start Diamox for this patient Compensatory for the primary respiratory acidosis for this pt (5) Right heart failure due to left heart failure: Code(s): I50.814 - Right heart failure due to left heart failure Status: Acute Assessment and Plan: Patient has right-sided heart failure secondary to left-sided heart failure Patient does not appear to have pulmonary hypertension on the last echo. RVSP is normal, approximately 26 mmHg Therefore the right-sided heart failure secondary to left-sided heart failure Patient has always had pulmonary edema when she has presented with acute right-sided heart failure over the past year Patient needs a right heart catheterization to see if she has high output heart failure. Her risk factors for high-output heart failure include obesity and chronic pulmonary disease associated with hypoxemia and hypercapnia. Recommend consulting Cardiology for this patient. Need to be aggressive in the diuretics for this patient. Continue 40 mg of IV Lasix q.8 hours until her creatinine rises. Venous Doppler of lower extremity cannot find DVT Less likely PE Therapeutic Lovenox were changed to heparin 5000 q.8 hours or subcu. (6) Elevated d-dimer: Code(s): R79.89 - Other specified abnormal findings of blood chemistry Status: Acute Assessment and Plan: CXR still has pulmonary edema Less likely PE Will stop lovenox bid 180 mg sq bid tomorrow Follow-up venous Doppler of upper extremities Subjective Date/time seen: 03/27/23 09:38 Interval history: I saw on exam patient today, patient feels better. Patient is on AVAPS. Patient is afebrile, blood pressure stable. Patient has low back pain and lower change a pain. Venous Doppler of lower extremity does not find DVT Exam Narrative: Gen: In mild distress on bipap HENT: unremarkable Eyes: EOMI Neck: supple, full ROM, jvd difficult to assess Lungs: Coarse breath sound bilateral bases, scattered rales, labored breathing CV: rrr, nl s1, s2, displaced PMI Abd: soft, nt, nd, bs+ Ext: 4+ pitting edema BL Neuro: tired, not following commands willingly Objective Data Vital Signs Vital Signs: Vital Signs - 24 hr 03/26/23 21:35 03/26/23 21:52 03/26/23 23:02 Temperature 97.6 F Pulse Rate 103 H 98 Respiratory Rate 21 H 22 H 20 Blood Pressure 125/52 L 122/43 L Pulse Oximetry 95 98 Oxygen Delivery Non-Rebreather Mask Oxygen Flow Rate 15 Fraction of Inspired Oxygen 03/27/23 00:28 03/27/23 01:01 03/26/23 23:00 Temperature Pulse Rate 89 101 H
--- NOTE | 2023-03-27 10:04 | P.CDI_ITS ---
CDI Query Clarification Request Documented history of CHF. CHF noted in the assessment and plan. Lasix listed as a home medication. Patient receiving Lasix. Elevated BNP on 03/25/23 lab work. Pulmonary edema noted on the 03/25 & 03/26 chest xray. Patient presented with complaints of shortness of breath requiring Bipap Please specify type and acuity of heart failure if known. * Acute * Chronic * Acute on Chronic * Unknown * Systolic * Diastolic * Combined Systolic and Diastolic * Unknown <Valencia Gee RN - Last Filed: 03/27/23 10:08> Clarified Diagnosis Clarified Diagnosis: Acute on chronic diastolic heart failure <Thee Scanlon MD - Last Filed: 03/28/23 13:56>
[2023-03-27 10:08] LABS: Hematocrit 31.9 % (37.0-47.0); Hemoglobin 8.5 g/dL (12.0-15.0); Mean Corpuscular HGB Conc 26.6 g/dl (32-36); Mean Corpuscular Hemoglobin 24.9 pg (26-34); Mean Corpuscular Volume 93.3 fl (80-100); Mean Platelet Volume 9.3 fl (7.4-10.4); Platelet Count Result 114 k/mm3 (150-375); Red Blood Count 3.42 M/mm3 (4.2-5.4); Red Cell Distribution Width 19.7 % (11.5-14.5); White Blood Count 4.8 K/mm3 (4.5-10.0)
[2023-03-27 10:19] LABS: Alanine Aminotransferase 18 U/L (6-35); Albumin Level 3.2 g/dL (3.5-5.1); Alkaline Phosphatase 66 U/L (38-126); Aspartate Amino Transferase 30 U/L (14-36); Bilirubin,Total 0.7 mg/dL (0.2-1.3); Blood Urea Nitrogen 25 mg/dL (7-17); Calcium 8.4 mg/dL (8.4-10.2); Carbon Dioxide > 40 mmol/L (22-30); Chloride 96 mmol/L (98-107); Estimated CRCL calculation 86 ml/min; Estimated Glomerular Filt Rate 40; Glucose 82 mg/dL (65-110); Potassium 4.4 mmol/L (3.4-5.0); Sodium 138 mmol/L (137-145)
--- NOTE | 2023-03-27 10:23 | PM.CNPUL ---
Assessment and Plan Assessment and plan (1) Obesity hypoventilation syndrome: Code(s): E66.2 - Morbid (severe) obesity with alveolar hypoventilation Status: Acute Assessment and Plan: Patient with morbid obesity, BMI 96.1, a history of chronic hypoxemic and hypercarbic respiratory failure with a blood gas on 03/17/2023 on 2 L nasal cannula of 7.33/70/61 and a serum bicarbonate of 35. Previous serum bicarb on 03/02/2023 was 35. Echocardiogram on 03/17/2023 shows normal LV EF 60 65%, no diastolic dysfunction with a mildly hypokinetic and enlarged right ventricle. TSH on 11/08/2020 was 1.86. I believe she has obesity hypoventilation syndrome. The chart states she is a never smoker and is on no inhaled medications. Patient presents on 03/26/2023 with acute on chronic hypercarbic and hypoxemic respiratory failure with a blood gas of 7.05/162/83 on 15 L non-rebreather and she has improved with BiPAP. 03/27: When I entered the room she was on BiPAP rate of 24 breathing 26, pressures 24/8, tidal volumes 400-500 with a minute ventilation of 9.8 and inspiratory time of 1.0, with a rise of 3 on 40% FiO2 with saturations 98%. Blood gas on these settings from 3:30 in the morning was 7.27/89/84. the patient was awake she could follow simple commands and said that the pressures were too high for her and that the breathing was uncomfortable. I changed her to noninvasive ventilation with the AVAPS mode with a rate of 24, tidal volume 550, EPAP 8, minimal inspiratory pressure 9, maximal inspiratory pressure 25, inspiratory time 1 sec, rise of 1 which is the fastest and 35% FiO2 with saturations 96%. Plan: I will repeat a blood gas on the above mentioned AVAPS settings in 1 hour. I have alerted the right of way supervisor in case we cannot ventilate or oxygenate this patient with NIV. Patient is afebrile with no white blood cell count and no focal infiltrates on her chest x-ray and I see no need for antibiotics from a pulmonary perspective. I will repeat TSH and free T4 to assess her thyroid function. Agree with S aggressive diuresis as tolerated by her cardiac and renal systems per the hospitalist team. Currently she is on Lasix 40 mg IV q.8 hours and according to the bedside nurse she has diuresed a total of 475 mL since admission. The patient has a high D-dimer and was placed on full-dose Lovenox for possible PE. I think PE is unlikely. I will perform upper lower extremity Dopplers. Per the medical record she is a never smoker and has no wheezes and I feel no need to add any bronchodilators, inhaled or systemic steroids at this time. Discussed with Dr. Harris, will follow with you. History of Present Illness History of Present Illness Consult date: 03/27/23 Chief complaint: Acute Hypercapnic Respiratory Failure, CHF Narrative: 03/27/2023: This is a new pulmonary consult for acute on chronic hypercarbic and hypoxemic respiratory failure. 48-year-old with a history of morbid obesity, BMI 96.1, diabetes, congestive heart failure, lymphedema, chronic kidney disease who presented to the emergency room with shortness of breath and altered mental status on 03/26/2023. Patient was admitted to [facility] from 03/14/23 through 03/19/23 with shortness of breath, abdominal cellulitis, CHF with a chest x-ray that showed cardiomegaly and congestion. At that time she had a blood gas on 2 L nasal cannula of 7.33/70/61 and a serum bicarbonate of 35. Previous serum bicarb on 03/02/2023 was 35. Patient improved with diuresis, and was discharged on Lasix 40 p.o. b.i.d. a and linezolid 600 q.12 hours. She presented back to the emergency department on 03/19 with weakness and inability to walk and was placed in inpatient rehab. Eventually she was admitted to [facility]. 03/25/2023 patient presented to the emergency department with shortness of breath worse when laying flat. Her BNP was 954, her saturations on 2 L were 94%, chest x-ray showed cardiomegaly and
[2023-03-27 11:39] LABS: Free T4 Free Thyroxine 1.09 ng/mL (0.78-2.19)
[2023-03-27 12:05] LABS: Glucose Point of Care 71 mg/dl (65-105)
[2023-03-27 12:09] LABS: Base Excess ABG 11.7 mEq/l (+/-2.0); Fractional Inspired Oxygen 35 %; HCO3 ABG 38.7 mEq/l (22.0-26.0); Oxygen Content ABG 13.4 %vol (16.0-22.0); Oxygen Saturation ABG 96.4 % (95.0-100.0); PO2 ABG 89.5 mmHg (80.0-100.0); PO2 FiO2 Ratio Arterial Blood 2.56 %; Total Hemoglobin 9.8 g/dL (12.0-18.0); pH ABG 7.384 (7.350-7.450)
[2023-03-27 12:13] LABS: Device NON-INVASIVE VENT; Modified Allen's Test Pass; PCO2 ABG 66.3 mmHg (35.0-45.0); Site Drawn RIGHT RADIAL
[2023-03-27 12:14] LABS: Non-Invasive Expiratory Pressure 8 CMH2O; Non-Invasive Vent Rate 24 /MIN
[2023-03-27 12:24] LABS: Thyroid Stimulating Hormone 0.674 uIU/mL (0.465-4.680)
[2023-03-27] MEDS: LIDOCAINE HCL 1% PF INJ 5 ML VIAL INFILTRATE (14:03)
[2023-03-27] MEDS: TOLNAFTATE 1% POWDER 45 GM BTL 1 APPLIC TOPICAL ×2 (15:19→22:30)
[2023-03-27] MEDS: ACETAMINOPHEN 325 MG TABLET 650 MG PO (16:55)
[2023-03-27 18:15] LABS: Glucose Point of Care 80 mg/dl (65-105)
[2023-03-27] MEDS: HYDROcodone/acetaminophen (*CRX) 7.5-325 MG TABLET 1 TAB PO (18:17)
[2023-03-27] MEDS: CENTRAL LINE FLUSH 10 ML IV PUSH (22:29)
[2023-03-27 23:26] LABS: Glucose Point of Care 80 mg/dl (65-105)
[2023-03-28] VITALS (18 sets, daily range): BP systolic 123–153; BP diastolic 60–82; PULSE 74–97; RESP 17–26; TEMP 37.1–37.3; O2SAT 90–100
[2023-03-28 05:25] LABS: Glucose Point of Care 77 mg/dl (65-105)
[2023-03-28] MEDS: FUROSEMIDE INJ 40 MG/4 ML VIAL IV PUSH ×3 (05:25→21:19)
[2023-03-28] MEDS: CENTRAL LINE FLUSH 10 ML IV PUSH ×3 (05:25→21:18)
[2023-03-28] MEDS: HEPARIN SODIUM 5,000 UNITS/ML VIAL 5000 UNITS SUB-Q ×3 (05:25→21:19)
[2023-03-28 05:34] LABS: Base Excess ABG 13.9 mEq/l (+/-2.0); HCO3 ABG 40.4 mEq/l (22.0-26.0); PCO2 ABG 63.7 mmHg (35.0-45.0)
[2023-03-28 05:35] LABS: Alveolar/Arterial O2 Gradient 114.9 mmHg; Total Hemoglobin 9.5 g/dL (12.0-18.0)
[2023-03-28 05:36] LABS: Device NON-INVASIVE VENT; Modified Allen's Test Pass; Oxygen Saturation ABG 97.3 % (95.0-100.0); Oxyhemoglobin 96.5 % THb (90.0-100.0); PO2 FiO2 Ratio Arterial Blood 2.42 %; Site Drawn RIGHT RADIAL
[2023-03-28 05:38] LABS: Non-Invasive Vent Rate 24 /MIN
--- NOTE | 2023-03-28 08:24 | PCRCNOTE ---
Entered ICU 10 this morning to find Dr. Serna and RN at bedside, per Dr. Serna pt titrated to 3L NC, keep stats 90-94%. Bipap is to be wore at nighttime and PRN. Dr. Srena made changes to AVAPS settings. Pt wears 1L at rest and 2L with activity at home.
--- NOTE | 2023-03-28 08:49 | PM.PNPUL ---
Progress Note: A&P Assessment and Plan (1) Obesity hypoventilation syndrome: Code(s): E66.2 - Morbid (severe) obesity with alveolar hypoventilation Status: Acute Assessment and Plan: Patient with morbid obesity, BMI 96.1, a history of chronic hypoxemic and hypercarbic respiratory failure with a blood gas on 03/17/2023 on 2 L nasal cannula of 7.33/70/61 and a serum bicarbonate of 35. Previous serum bicarb on 03/02/2023 was 35. Echocardiogram on 03/17/2023 shows normal LV EF 60 65%, no diastolic dysfunction with a mildly hypokinetic and enlarged right ventricle. 03/27/2023 TSH 0.674 and free T4 1.09, both normal. I believe she has obesity hypoventilation syndrome. She tells me she has never had asthma, COPD or respiratory illness and she is a never smoker and is on no inhaled medications. Patient has obesity hypoventilation syndrome and would benefit from a noninvasive ventilator to prevent further deterioration and subsequent hospitalizations. The patient was placed on BiPAP but this did not provide adequate ventilatory support and she could not tolerate the pressures. Her blood gas on BiPAP remained 7.27/89/84. The patient has improved with noninvasive ventilator with the AVAPS mode. 03/27: When I entered the room she was on BiPAP rate of 24 breathing 26, pressures 24/8, tidal volumes 400-500 with a minute ventilation of 9.8 and inspiratory time of 1.0, with a rise of 3 on 40% FiO2 with saturations 98%. Blood gas on these settings from 3:30 in the morning was 7.27/89/84. the patient was awake she could follow simple commands and said that the pressures were too high for her and that the breathing was uncomfortable. I changed her to noninvasive ventilation with the AVAPS mode with a rate of 24, tidal volume 550, EPAP 8, minimal inspiratory pressure 9, maximal inspiratory pressure 25, inspiratory time 1 sec, rise of 1 which is the fastest and 35% FiO2 with saturations 96%. Plan: I will repeat a blood gas on the above mentioned AVAPS settings in 1 hour. I have alerted the art therapy specialist in case we cannot ventilate or oxygenate this patient with NIV. Patient is afebrile with no white blood cell count and no focal infiltrates on her chest x-ray and I see no need for antibiotics from a pulmonary perspective. I will repeat TSH and free T4 to assess her thyroid function. Agree with S aggressive diuresis as tolerated by her cardiac and renal systems per the hospitalist team. Currently she is on Lasix 40 mg IV q.8 hours and according to the bedside nurse she has diuresed a total of 475 mL since admission. The patient has a high D-dimer and was placed on full-dose Lovenox for possible PE. I think PE is unlikely. I will perform upper lower extremity Dopplers. Per the medical record she is a never smoker and has no wheezes and I feel no need to add any bronchodilators, inhaled or systemic steroids at this time. Repeat ABG on these settings was 7.38/66/90. Upper and lower extremity Dopplers negative for DVT. 03/28 patient wore the noninvasive ventilator with the AVAPS mode overnight. Spoke with the bedside nurse and she would have intermittent episodes of desaturation into the 70s lasting 45 seconds. With a entered the room it appeared the patient was not getting full tidal volumes but the machine was cycling properly. With these desaturations there were no other clinical changes. When I enter the room the patient was on AVAPS rate of 24 breathing 20 4 times a minute tidal volume 550 with delivered tidal volume 450-600 and minute ventilation of 14 on 40% with saturations 100%. Peak airway pressures were 28 and 29. Blood gas this morning was 7.42/64/97. she was awake fully communicative and in no respiratory distress. She felt she could come off of the noninvasive ventilator and we switched her to nasal cannula 3 L and she was comfortable in no respiratory distress with saturations 93%. Today the patient tells me that she has a little bit short of br
[2023-03-28] MEDS: TOLNAFTATE 1% POWDER 45 GM BTL 1 APPLIC TOPICAL ×2 (08:56→20:22)
[2023-03-28 11:02] LABS: Basophils Percent Auto 0.8 % (0.2-1.2); Eosinophils Percent Auto 0.8 % (0-4.4); Hematocrit 29.8 % (37.0-47.0); Hemoglobin 8.3 g/dL (12.0-15.0); Immature Granulocyte Absolute 0.02 K/mm3 (0.00-0.031); Immature Granulocyte Percent A 0.4 % (0-0.5); Lymphocytes Absolute Auto 1.06 K/mm3 (0.9-3.2); Lymphocytes Percent Auto 21.4 % (18.3-44.2); Mean Corpuscular HGB Conc 27.9 g/dl (32-36); Mean Corpuscular Hemoglobin 24.9 pg (26-34); Mean Corpuscular Volume 89.5 fl (80-100); Mean Platelet Volume 9.2 fl (7.4-10.4); Monocytes Absolute Auto 0.5 K/mm3 (0.1-0.6); Monocytes Percent Auto 9.3 % (2.6-8.5); Neutrophils Absolute Auto 3.3 K/mm3 (1.3-6.7); Neutrophils Percent Auto 67.3 % (45.5-73.1); Platelet Count Result 109 k/mm3 (150-375); Red Blood Count 3.33 M/mm3 (4.2-5.4); Red Cell Distribution Width 20.4 % (11.5-14.5)
[2023-03-28 11:19] LABS: Blood Urea Nitrogen 26 mg/dL (7-17); Calcium 8.3 mg/dL (8.4-10.2); Carbon Dioxide > 40 mmol/L (22-30); Chloride 96 mmol/L (98-107); Estimated CRCL calculation 100 ml/min; Estimated Glomerular Filt Rate 48; Glucose 128 mg/dL (65-110); Potassium 3.9 mmol/L (3.4-5.0); Sodium 141 mmol/L (137-145)
[2023-03-28 11:38] LABS: Hypochromasia 1+ (NORMAL); Platelet Estimate Decreased (Adequate); Stomatocytes 2+ (NORMAL)
[2023-03-28 11:39] LABS: Anisocytosis 1+ (NORMAL); Schistocytes None Seen (NORMAL)
[2023-03-28 12:00] LABS: Glucose Point of Care 122 mg/dl (65-105)
--- NOTE | 2023-03-28 14:19 | PM.IMPN ---
Progress Note: A&P Assessment and Plan (1) Acute exacerbation of CHF (congestive heart failure): Code(s): I50.9 - Heart failure, unspecified Status: Acute Assessment and Plan: Significant bilateral pulmonary edema on chest X . Patient is very wet on chest x-ray Slight worsening of pulmonary edema from the day prior Need to be aggressive with diuretics. The patient may have high-output heart failure from obesity and chronic hypoxemia and hypercapnia. Recommending consulting Cardiology for this patient. Continue lasix 40 mg iv q8h (2) Obesity hypoventilation syndrome: Code(s): E66.2 - Morbid (severe) obesity with alveolar hypoventilation Status: Acute Assessment and Plan: Patient should be started on BiPAP on BiPAP through the night to improve, has changed to AVAPS point neurologist recommendation in night Follow-up ABG now on 3 L O2 via NC (3) Acute respiratory failure with hypoxia and hypercarbia: Code(s): J96.01 - Acute respiratory failure with hypoxia; J96.02 - Acute respiratory failure with hypercapnia Status: Acute Assessment and Plan: Negative resulting from obesity hypoventilation syndrome and acute heart failure On AVAPS (4) Metabolic alkalosis with respiratory acidosis: Code(s): E87.4 - Mixed disorder of acid-base balance Status: Acute Assessment and Plan: Give 1 dose of potassium chloride May need to start Diamox for this patient Compensatory for the primary respiratory acidosis for this pt (5) Right heart failure due to left heart failure: Code(s): I50.814 - Right heart failure due to left heart failure Status: Acute Assessment and Plan: Acute on chronic diastolic heart failure Echocardiogram March 26 reveals normal EF of left ventricle, mild reduced right ventricle function Continue 40 mg of IV Lasix q.8 hours until her creatinine rises. Venous Doppler of lower extremity cannot find DVT Less likely PE Therapeutic Lovenox were changed to heparin 5000 q.8 hours or subcu. now has negative fluid balance (6) Elevated d-dimer: Code(s): R79.89 - Other specified abnormal findings of blood chemistry Status: Acute Assessment and Plan: CXR still has pulmonary edema Less likely PE Will stop lovenox bid 180 mg sq bid tomorrow Follow-up venous Doppler of upper extremities LEs negative for DVT (7) Cellulitis of groin: Code(s): L03.314 - Cellulitis of groin Status: Acute Assessment and Plan: Right knee, tender, spotting of skin bilateral groin, Servo imposed with fungal infection Patient has low-grade fever Start doxycycline 100 mg q.12 hours p.o., Unasyn IV, Continue miconazole nitrate topical use Subjective Date/time seen: 03/28/23 14:19 Interval history: I saw exam patient in ICU today. Patient feels better today, mental status improving, patient states short breath is improving, has mild cough. Patient denies chest pain, abdomen pain, nausea vomiting diarrhea. Patient wore the noninvasive ventilator with the AVAPS mode overnight. Now, patient is off of the noninvasive ventilator and we switched her to nasal cannula 3 L. patient is noted to have low-grade fever, white blood cells within normal limits Exam Narrative: Gen: In mild distress on bipap HENT: unremarkable Eyes: EOMI Neck: supple, full ROM, jvd difficult to assess Lungs: Coarse breath sound bilateral bases, scattered rales, labored breathing CV: rrr, nl s1, s2, displaced PMI Abd: soft, nt, nd, bs+ Skin: Redness, swelling, tenderness bilateral groin with scaly rashes Ext: 4+ pitting edema BL Neuro: tired, not following commands willingly Objective Data Vital Signs Vital Signs: Vital Signs - 24 hr 03/27/23 17:13 03/27/23 17:25 03/27/23 16:00 Temperature Pulse Rate 85 Respiratory Rate 25 H Blood Pressure Pulse Oximetry 99 95 98 Oxygen Delivery BiPAP BiPAP BiPAP Oxygen Flow Rate
[2023-03-28 17:23] LABS: Glucose Point of Care 128 mg/dl (65-105)
[2023-03-28] MEDS: AMPICILLIN SULB 3 GM/NS 100 ML 3 GM/100 ML VIAL IVPB ×2 (17:51→23:51)
[2023-03-28] MEDS: DOXYCYCLINE HYCLATE 100 MG TABLET PO (20:23)
[2023-03-28] MEDS: LOPERAMIDE HCL 2 MG CAPSULE PO (21:25)
[2023-03-28 21:29] LABS: Glucose Point of Care 135 mg/dl (65-105)
[2023-03-29] VITALS (16 sets, daily range): BP systolic 112–132; BP diastolic 44–69; PULSE 72–89; RESP 11–25; TEMP 36.1–37.4; O2SAT 94–98
[2023-03-29] MEDS: AMPICILLIN SULB 3 GM/NS 100 ML 3 GM/100 ML VIAL IVPB ×3 (05:36→17:06)
[2023-03-29] MEDS: FUROSEMIDE INJ 40 MG/4 ML VIAL IV PUSH ×2 (05:36→20:37)
[2023-03-29] MEDS: CENTRAL LINE FLUSH 10 ML IV PUSH ×3 (05:37→20:37)
[2023-03-29] MEDS: HEPARIN SODIUM 5,000 UNITS/ML VIAL 5000 UNITS SUB-Q ×3 (05:37→20:37)
[2023-03-29] MEDS: ACETAMINOPHEN 325 MG TABLET 650 MG PO (06:16)
[2023-03-29] MEDS: DOXYCYCLINE HYCLATE 100 MG TABLET PO ×2 (09:55→20:38)
--- NOTE | 2023-03-29 09:58 | ECG_ITS ---
Measurements Intervals [place] Rate: 86 P: [place]: 0 QRS: -34 QRSD: 113 T: 62 QT: 373 QTc: 448 Interpretive Statements ATRIAL FIBRILLATION MARKED LEFT AXIS DEVIATION [QRS AXIS < -30] PATTERN CONSISTENT WITH PULMONARY DISEASE MODERATE INTRAVENTRICULAR CONDUCTION DELAY [110+ ms QRS DURATION] ABNORMAL ECG COMPARED TO ECG 03/26/2023 21:45:33 ATRIAL FIBRILLATION NOW PRESENT Electronically Signed On 03-30-2023 7:04:07 CDT by Ezio Umaña M.D.
[2023-03-29] MEDS: TOLNAFTATE 1% POWDER 45 GM BTL 1 APPLIC TOPICAL ×2 (11:18→20:38)
[2023-03-29 12:59] LABS: Basophils Percent Auto 0.4 % (0.2-1.2); Eosinophils Absolute Auto 0.1 K/mm3 (0-0.3); Hematocrit 29.7 % (37.0-47.0); Hemoglobin 8.4 g/dL (12.0-15.0); Immature Granulocyte Absolute 0.02 K/mm3 (0.00-0.031); Immature Granulocyte Percent A 0.4 % (0-0.5); Lymphocytes Absolute Auto 1.02 K/mm3 (0.9-3.2); Lymphocytes Percent Auto 20.4 % (18.3-44.2); Mean Corpuscular HGB Conc 28.3 g/dl (32-36); Mean Corpuscular Hemoglobin 24.9 pg (26-34); Mean Corpuscular Volume 88.1 fl (80-100); Mean Platelet Volume 9.7 fl (7.4-10.4); Monocytes Absolute Auto 0.5 K/mm3 (0.1-0.6); Monocytes Percent Auto 10.2 % (2.6-8.5); Neutrophils Absolute Auto 3.4 K/mm3 (1.3-6.7); Neutrophils Percent Auto 67.6 % (45.5-73.1); Platelet Count Result 102 k/mm3 (150-375); Red Blood Count 3.37 M/mm3 (4.2-5.4); Red Cell Distribution Width 20.3 % (11.5-14.5)
[2023-03-29 13:16] LABS: Sodium 138 mmol/L (137-145)
[2023-03-29 13:22] LABS: Anisocytosis 2+ (NORMAL); Platelet Estimate Decreased (Adequate)
[2023-03-29 13:23] LABS: Hypochromasia 2+ (NORMAL); Schistocytes None Seen (NORMAL); Stomatocytes 2+ (NORMAL)
[2023-03-29 13:25] LABS: Blood Urea Nitrogen 26 mg/dL (7-17); Calcium 8.2 mg/dL (8.4-10.2); Carbon Dioxide > 40 mmol/L (22-30); Chloride 93 mmol/L (98-107); Estimated CRCL calculation 121 ml/min; Estimated Glomerular Filt Rate 59; Glucose 139 mg/dL (65-110); Potassium 3.7 mmol/L (3.4-5.0)
--- NOTE | 2023-03-29 14:40 | PC.NURSE ---
Received from ICU/10 via specialty bed. Catheter drain yellow urine.
--- NOTE | 2023-03-29 15:04 | PC.NURSE ---
This patient, Peg Nicole, was transferred to [facility] on 03/29/23 at 1504. Personal belongings sent with patient. Report given to Anjelica YOUNGBLOOD. Appropriate documentation sent with patient.
[2023-03-29 16:39] LABS: Glucose Point of Care 141 mg/dl (65-105)
[2023-03-29] MEDS: HYDROcodone/acetaminophen (*CRX) 7.5-325 MG TABLET 1 TAB PO (20:37)
[2023-03-30] VITALS (11 sets, daily range): BP systolic 118–158; BP diastolic 46–64; PULSE 78–95; RESP 16–25; TEMP 36.4–36.6; O2SAT 91–98
[2023-03-30] MEDS: AMPICILLIN SULB 3 GM/NS 100 ML 3 GM/100 ML VIAL IVPB ×5 (00:31→23:48)
[2023-03-30] MEDS: HEPARIN SODIUM 5,000 UNITS/ML VIAL 5000 UNITS SUB-Q (05:43)
[2023-03-30] MEDS: FUROSEMIDE INJ 40 MG/4 ML VIAL IV PUSH ×3 (05:44→20:14)
[2023-03-30] MEDS: CENTRAL LINE FLUSH 10 ML IV PUSH ×3 (05:44→20:16)
[2023-03-30] MEDS: TOLNAFTATE 1% POWDER 45 GM BTL 1 APPLIC TOPICAL ×2 (08:36→20:18)
[2023-03-30] MEDS: DOXYCYCLINE HYCLATE 100 MG TABLET PO ×2 (08:37→20:15)
--- NOTE | 2023-03-30 09:21 | PM.CNCAR ---
Assessment and Plan Assessment and plan (1) Atrial fibrillation by electrocardiogram: Code(s): I48.91 - Unspecified atrial fibrillation Status: Acute Plan This is a 48-year-old lady who undoubtedly has paroxysmal atrial fibrillation with a due to super massive obesity and hypoventilation syndrome. Paroxysmal AFib in this setting is not unexpected and not surprising. Her heart rate is controlled at baseline indicating some element of AV node dysfunction is present as well. At this point the only cardiac recommendation is to administer systemic anticoagulation. I will start apixaban 5 mg q.12 hours and stop the subcutaneous heparin. Ezio Umaña MD [facility] History of Present Illness History of Present Illness Consult date/time: 03/30/23 09:21 Reason For Visit: Acute Hypercapnic Respiratory Failure, CHF Narrative: This is a 48-year-old woman I am seeing at the request of the hospitalist because of atrial fibrillation. She is unknown to me prior to this consultation her chart has been reviewed and she has been seen in room 260. She does not have any cardiovascular complaints in the way of symptomatology. She was hospitalized here several days ago with shortness of breath, some volume overload that appears to be the result of obesity hypoventilation syndrome. She had will had severe hypercarbic respiratory failure of noted upon admission and is being treated by the pulmonology consultants. She is going to require noninvasive ventilation for treatment of this during sleeping hours. The patient has an extremely high BMI of 100.6 and describes no prior history of any cardiac problems. Upon admission to the hospital her electrocardiogram demonstrated sinus rhythm. Yesterday she was in the ICU and it was noticed that she had developed atrial fibrillation. A 12 lead electrocardiogram did confirm this. She has no awareness of this in the way of symptomatology or palpitations. In atrial fibrillation her heart rate is in the 80-90. She had an echocardiogram done the 1st week of this month that demonstrated normal left ventricular systolic function no significant valvular disease and some right-sided cardiac enlargement which of course is not surprising. In this setting I am seeing her in consultation. She is currently receiving subcutaneous heparin. Review of Systems Constitutional: Constitutional: Reports lethargy Eyes: Eyes: Reports no additional eye complaints ENT: Reports system reviewed and no additional complaints, except as documented Cardiovascular: Cardiovascular: Reports no additional cardiovascular complaints Respiratory: Respiratory: Reports dyspnea on exertion Gastrointestinal: Gastrointestinal: Reports no additional gastrointestinal complaints Musculoskeletal: Musculoskeletal: Reports back pain Integumentary/Breasts: Skin/Breast: Reports system reviewed and no additional complaints, except as docu Neurologic: Reports system reviewed and no additional complaints, except as documented Psychiatric: Psychiatric: Reports depression Endocrine: Endocrine: Reports no additional endocrine complaints Hematologic/Lymphatic: Hematologic/Lymphatic: Reports no additional hematologic/lymphatic complaints Allergic/Immunologic: Allergic/Immunologic: Reports no additional allergic/immunologic complaints PMFSH Past Medical History Medical History Anxiety CHF (congestive heart failure), NYHA class I Essential (primary) hypertension H/O adenomatous polyp of colon Hypertension associated with diabetes Hypothyroidism, unspecified Idiopathic peripheral neuropathy Irritable bowel syndrome with diarrhea Lymphedema of both lower extremities Magnesium deficiency Moderate major depression Morbid obesity Psoriasis Stasis dermatitis Type 2 diabetes mellitus without complications Vitamin B12 deficiency Vitamin D deficiency Surgical History Surgical Histo
[2023-03-30 10:07] LABS: Basophils Percent Auto 0.6 % (0.2-1.2); Eosinophils Absolute Auto 0.1 K/mm3 (0-0.3); Eosinophils Percent Auto 2.2 % (0-4.4); Hematocrit 31.4 % (37.0-47.0); Hemoglobin 8.6 g/dL (12.0-15.0); Immature Granulocyte Absolute 0.02 K/mm3 (0.00-0.031); Immature Granulocyte Percent A 0.4 % (0-0.5); Lymphocytes Percent Auto 21.8 % (18.3-44.2); Mean Corpuscular HGB Conc 27.4 g/dl (32-36); Mean Corpuscular Hemoglobin 24.6 pg (26-34); Mean Platelet Volume 9.7 fl (7.4-10.4); Monocytes Absolute Auto 0.5 K/mm3 (0.1-0.6); Monocytes Percent Auto 9.3 % (2.6-8.5); Neutrophils Absolute Auto 3.3 K/mm3 (1.3-6.7); Neutrophils Percent Auto 65.7 % (45.5-73.1); Platelet Count Result 112 k/mm3 (150-375); Red Blood Count 3.49 M/mm3 (4.2-5.4); Red Cell Distribution Width 20.3 % (11.5-14.5)
[2023-03-30 10:26] LABS: Blood Urea Nitrogen 23 mg/dL (7-17); Calcium 8.2 mg/dL (8.4-10.2); Carbon Dioxide > 40 mmol/L (22-30); Chloride 91 mmol/L (98-107); Estimated CRCL calculation 122 ml/min; Estimated Glomerular Filt Rate 59; Glucose 129 mg/dL (65-110); Potassium 3.5 mmol/L (3.4-5.0); Sodium 135 mmol/L (137-145)
[2023-03-30 10:38] LABS: Anisocytosis 2+ (NORMAL); Hypochromasia 2+ (NORMAL); Platelet Estimate Decreased (Adequate); Schistocytes None Seen (NORMAL); Stomatocytes 2+ (NORMAL)
[2023-03-30] MEDS: ALPRAZolam (*CRX) 0.5 MG TABLET PO ×2 (13:19→20:15)
--- NOTE | 2023-03-30 15:33 | PM.IMPN ---
Progress Note: A&P Assessment and Plan (1) Acute exacerbation of CHF (congestive heart failure): Code(s): I50.9 - Heart failure, unspecified Status: Acute Assessment and Plan: Significant bilateral pulmonary edema on chest X . Patient is very wet on chest x-ray Slight worsening of pulmonary edema from the day prior Need to be aggressive with diuretics. The patient may have high-output heart failure from obesity and chronic hypoxemia and hypercapnia. Continue lasix 40 mg iv q8h (2) Obesity hypoventilation syndrome: Code(s): E66.2 - Morbid (severe) obesity with alveolar hypoventilation Status: Acute Assessment and Plan: Patient should be started on BiPAP on BiPAP through the night to improve, has changed to AVAPS point neurologist recommendation in night Follow-up ABG off O2 during the day (3) Acute respiratory failure with hypoxia and hypercarbia: Code(s): J96.01 - Acute respiratory failure with hypoxia; J96.02 - Acute respiratory failure with hypercapnia Status: Acute Assessment and Plan: resulting from obesity hypoventilation syndrome and acute heart failure/fluid overlaod On AVAPS c/w iv lasix (4) Metabolic alkalosis with respiratory acidosis: Code(s): E87.4 - Mixed disorder of acid-base balance Status: Acute Assessment and Plan: for this patient compensatory for the primary respiratory acidosis for this pt hco3 >40 start Diamox 125 mg bid po f/u bmp (5) Right heart failure due to left heart failure: Code(s): I50.814 - Right heart failure due to left heart failure Status: Acute Assessment and Plan: Acute on chronic diastolic heart failure Echocardiogram March 26 reveals normal EF of left ventricle, mild reduced right ventricle function Continue 40 mg of IV Lasix q.8 hours until her creatinine rises. Venous Doppler of lower extremity cannot find DVT Less likely PE Therapeutic Lovenox were changed to heparin 5000 q.8 hours or subcu. now has negative fluid balance (6) Elevated d-dimer: Code(s): R79.89 - Other specified abnormal findings of blood chemistry Status: Acute Assessment and Plan: CXR still has pulmonary edema Less likely PE Will stop lovenox bid 180 mg sq bid tomorrow Follow-up venous Doppler of upper extremities LEs negative for DVT (7) Cellulitis of groin: Code(s): L03.314 - Cellulitis of groin Status: Acute Assessment and Plan: Right knee, tender, spotting of skin bilateral groin, Servo imposed with fungal infection Patient has low-grade fever Start doxycycline 100 mg q.12 hours p.o., Unasyn IV, Continue miconazole nitrate topical use Subjective Date/time seen: 03/30/23 15:33 Interval history: I saw and examined patient at bedside. Patient is alert oriented, patient states short breath is improving, has mild cough. Patient denies chest pain, abdomen pain, nausea vomiting diarrhea. Patient is off oxygen during the day. Patient feels anxious Exam Narrative: Gen: In mild distress on bipap HENT: unremarkable Eyes: EOMI Neck: supple, full ROM, jvd difficult to assess Lungs: Coarse breath sound bilateral bases, no respiratory distress CV: rrr, nl s1, s2, displaced PMI Abd: soft, nt, nd, bs+ Skin: Redness, swelling, tenderness bilateral groin with scaly rashes Ext: 4+ pitting edema BL Neuro: tired, not following commands willingly Objective Data Vital Signs Vital Signs: Vital Signs - 24 hr 03/29/23 16:04 03/29/23 20:00 03/29/23 22:36 Temperature 97.0 F L 97.0 F L Pulse Rate 78 81 81 Respiratory Rate 18 18 Blood Pressure 118/44 L 118/44 L Pulse Oximetry 97 97 Oxygen Delivery Oxygen Flow Rate Fraction of Inspired Oxygen 03/29/23 20:00 03/29/23 20:00 03/29/23 22:18 Temperature Pulse Rate 81 81 Respiratory Rate 18 Blood Pressure Pulse Oximetry 97 96 Oxygen Delivery Nasal Cannula Nasal Cannula Oxyg
[2023-03-30] MEDS: APIXABAN 5 MG TABLET PO (20:14)
[2023-03-31] VITALS (17 sets, daily range): BP systolic 114–137; BP diastolic 43–58; PULSE 65–112; RESP 16–24; TEMP 35.5–36.9; O2SAT 94–99; BMI 10.0
[2023-03-31] MEDS: AMPICILLIN SULB 3 GM/NS 100 ML 3 GM/100 ML VIAL IVPB ×2 (07:10→11:39)
[2023-03-31] MEDS: CENTRAL LINE FLUSH 10 ML IV PUSH ×3 (07:10→20:28)
[2023-03-31] MEDS: FUROSEMIDE INJ 40 MG/4 ML VIAL IV PUSH ×3 (07:10→22:08)
[2023-03-31] MEDS: DOXYCYCLINE HYCLATE 100 MG TABLET PO ×2 (08:31→20:28)
[2023-03-31] MEDS: APIXABAN 5 MG TABLET PO ×2 (08:31→20:28)
[2023-03-31] MEDS: TOLNAFTATE 1% POWDER 45 GM BTL 1 APPLIC TOPICAL ×2 (08:32→20:29)
[2023-03-31 08:40] LABS: Basophils Percent Auto 0.6 % (0.2-1.2); Eosinophils Absolute Auto 0.1 K/mm3 (0-0.3); Eosinophils Percent Auto 2.5 % (0-4.4); Hematocrit 33.1 % (37.0-47.0); Hemoglobin 8.9 g/dL (12.0-15.0); Immature Granulocyte Absolute 0.03 K/mm3 (0.00-0.031); Immature Granulocyte Percent A 0.6 % (0-0.5); Lymphocytes Absolute Auto 0.87 K/mm3 (0.9-3.2); Lymphocytes Percent Auto 16.7 % (18.3-44.2); Mean Corpuscular HGB Conc 26.9 g/dl (32-36); Mean Corpuscular Hemoglobin 24.9 pg (26-34); Mean Corpuscular Volume 92.7 fl (80-100); Mean Platelet Volume 9.4 fl (7.4-10.4); Monocytes Absolute Auto 0.6 K/mm3 (0.1-0.6); Monocytes Percent Auto 11.5 % (2.6-8.5); Neutrophils Absolute Auto 3.6 K/mm3 (1.3-6.7); Neutrophils Percent Auto 68.1 % (45.5-73.1); Platelet Count Result 106 k/mm3 (150-375); Red Blood Count 3.57 M/mm3 (4.2-5.4); Red Cell Distribution Width 20.6 % (11.5-14.5); White Blood Count 5.2 K/mm3 (4.5-10.0)
[2023-03-31 08:51] LABS: Blood Urea Nitrogen 21 mg/dL (7-17); Calcium 8.4 mg/dL (8.4-10.2); Carbon Dioxide > 40 mmol/L (22-30); Chloride 90 mmol/L (98-107); Estimated CRCL calculation 115 ml/min; Estimated Glomerular Filt Rate 59; Glucose 116 mg/dL (65-110); Potassium 3.6 mmol/L (3.4-5.0); Sodium 138 mmol/L (137-145)
[2023-03-31 09:33] LABS: Anisocytosis 2+ (NORMAL); Large Platelets Present; Macrocytosis 1+ (NORMAL); Platelet Estimate Decreased (Adequate); Stomatocytes 2+ (NORMAL)
[2023-03-31 09:34] LABS: Hypochromasia 1+ (NORMAL); Schistocytes None Seen (NORMAL)
--- NOTE | 2023-03-31 12:43 | PCPTNOTE ---
Pt has active bedrest orders at this time. Will speak with hospitalist prior to mobilizing pt.
--- NOTE | 2023-03-31 12:45 | PM.IMPN ---
Progress Note: A&P Assessment and Plan (1) Acute exacerbation of CHF (congestive heart failure): Code(s): I50.9 - Heart failure, unspecified Status: Acute Assessment and Plan: Significant bilateral pulmonary edema on chest X . Patient is very wet on chest x-ray Slight worsening of pulmonary edema from the day prior Need to be aggressive with diuretics. The patient may have high-output heart failure from obesity and chronic hypoxemia and hypercapnia. Continue lasix 40 mg iv q8h add acetazolamide 125 mg b.i.d. p.o. given high levels bicarb (2) Obesity hypoventilation syndrome: Code(s): E66.2 - Morbid (severe) obesity with alveolar hypoventilation Status: Acute Assessment and Plan: Patient should be started on BiPAP on BiPAP through the night to improve, has changed to AVAPS point neurologist recommendation in night Follow-up ABG off O2 during the day (3) Acute respiratory failure with hypoxia and hypercarbia: Code(s): J96.01 - Acute respiratory failure with hypoxia; J96.02 - Acute respiratory failure with hypercapnia Status: Acute Assessment and Plan: resulting from obesity hypoventilation syndrome and acute heart failure/fluid overlaod On AVAPS c/w iv lasix (4) Metabolic alkalosis with respiratory acidosis: Code(s): E87.4 - Mixed disorder of acid-base balance Status: Acute Assessment and Plan: for this patient compensatory for the primary respiratory acidosis for this pt hco3 >40 start Diamox 125 mg bid po f/u bmp (5) Right heart failure due to left heart failure: Code(s): I50.814 - Right heart failure due to left heart failure Status: Acute Assessment and Plan: Acute on chronic diastolic heart failure Echocardiogram March 26 reveals normal EF of left ventricle, mild reduced right ventricle function Continue 40 mg of IV Lasix q.8 hours until her creatinine rises. Venous Doppler of lower extremity cannot find DVT Less likely PE Therapeutic Lovenox were changed to heparin 5000 q.8 hours or subcu. now has negative fluid balance (6) Elevated d-dimer: Code(s): R79.89 - Other specified abnormal findings of blood chemistry Status: Acute Assessment and Plan: CXR still has pulmonary edema Less likely PE Will stop lovenox bid 180 mg sq bid tomorrow Follow-up venous Doppler of upper extremities LEs negative for DVT (7) Cellulitis of groin: Code(s): L03.314 - Cellulitis of groin Status: Acute Assessment and Plan: Right knee, tender, spotting of skin bilateral groin, Servo imposed with fungal infection Patient had low-grade fever Started doxycycline 100 mg q.12 hours p.o., Unasyn IV,03/28 Continue miconazole nitrate topical use afeb and cellulitis is improving, Change to doxycycline and Augmentin p.o. today Plan PATIENT IS AWAITING FOR PLACEMENT. Patient needs a Trelegy or BiPAP at discharge Subjective Date/time seen: 03/31/23 12:45 Interval history: I saw and examined patient at bedside. Patient is alert oriented. Patient has no new issue events over the night. Patient denies chest pain, abdomen pain, nausea vomiting diarrhea. Patient is off oxygen during the day. Exam Narrative: Gen: No obvious distress, pleasant person, HENT: unremarkable Eyes: EOMI Neck: supple, full ROM, jvd difficult to assess Lungs: Coarse breath sound bilateral bases, no respiratory distress CV: rrr, nl s1, s2, displaced PMI Abd: soft, nt, nd, bs+ Skin: Redness, swelling, tenderness bilateral groin with scaly rashes but improving Ext: 4+ pitting edema BL Neuro: tired, not following commands willingly Objective Data Vital Signs Vital Signs: Vital Signs - 24 hr 03/30/23 13:24 03/30/23 16:00 03/30/23 16:00 Temperature 97.8 F Pulse Rate 95 92 80 Respiratory Rate 16 Blood Pressure 131/64 135/52 L Pulse Oximetry 97 98 Oxygen Delivery Oxygen Flow Rate Fract
--- NOTE | 2023-03-31 12:46 | PM.PNPUL ---
Progress Note: A&P Assessment and Plan (1) Acute respiratory failure with hypoxia and hypercarbia: Code(s): J96.01 - Acute respiratory failure with hypoxia; J96.02 - Acute respiratory failure with hypercapnia Status: Acute Assessment and Plan: Patient's respiratory status has improved following treatment with diuretics, noninvasive ventilatory support via BiPAP AVAPS and also treatment for atrial fibrillation. I would recommend to decrease the dose of Lasix, discontinue Diamox, repeat ABGs in a.m. apnea link study overnight on current BiPAP settings and supplemental oxygen 3 liters/minute. (2) Obesity hypoventilation syndrome: Code(s): E66.2 - Morbid (severe) obesity with alveolar hypoventilation Status: Acute (3) Acute exacerbation of CHF (congestive heart failure): Code(s): I50.9 - Heart failure, unspecified Status: Acute (4) CHF (congestive heart failure), NYHA class I: Code(s): I50.9 - Heart failure, unspecified Status: Acute (5) Cellulitis: Qualifiers: Site of cellulitis: trunk Site of cellulitis of trunk: abdominal wall Qualified Code(s): L03.311 - Cellulitis of abdominal wall Code(s): L03.90 - Cellulitis, unspecified Status: Acute (6) Type 2 diabetes mellitus without complications: Code(s): E11.9 - Type 2 diabetes mellitus without complications Status: Acute Subjective Date/time seen: 03/31/23 12:46 Interval history: Patient is fully awake, on supplemental oxygen at 3 liters/minute. She slept well on BiPAP last night, tidal volume 550 EPAP 8 respirations 20 maximum pressure of 85 and 40% FiO2. She has no new respiratory complaints this a.m.. Continues to have lower extremity edema. Treated recently for cellulitis. She has chronic lymphedema. Also on treatment for atrial fibrillation. Patient with severe obesity, BMI over 93, never had a sleep study. Review of Systems Review of Systems: All systems reviewed & are unremarkable except as noted in HPI and below (HPI and below) Exam Narrative: GENERAL APPEARANCE: Well developed, well nourished, alert and cooperative, morbidly obese female, laying in bed in semi recumbent position. SKIN: Inspection of the skin reveals no rashes, ulcerations or petechiae. HEENT: Sclerae anicteric and conjunctivae pink and moist. Extraocular movements were intact and pupils were equal, round. The oral mucosa, hard and soft palate, tongue and posterior pharynx were normal. NECK: Supple. There was no thyroid enlargement, and no tenderness, or masses were felt. LUNGS: Clear lungs anteriorly CARDIAC: There was an irregular rate and rhythm without any murmurs, gallops, rubs. ABDOMEN: Obese, soft and nontender. EXTREMITIES: Lower extremity edema bilaterally, erythematous area left foot dorsal aspect NEUROLOGIC: Alert and oriented x 3. Normal affect. Objective Data Vital Signs Vital Signs: Vital Signs - 24 hr 03/30/23 13:24 03/30/23 16:00 03/30/23 16:00 Temperature 36.6 C Pulse Rate 95 92 80 Respiratory Rate 16 Blood Pressure 131/64 135/52 L Pulse Oximetry 97 98 Oxygen Delivery Oxygen Flow Rate Fraction of Inspired Oxygen 03/30/23 22:10 03/30/23 20:00 03/30/23 22:30 Temperature 36.4 C Pulse Rate 88 88 83 Respiratory Rate 16 16 25 H Blood Pressure 118/46 L Pulse Oximetry 91 91 98 Oxygen Delivery Nasal Cannula BiPAP Oxygen Flow Rate 3 Fraction of Inspired Oxygen 32 03/31/23 01:30 03/30/23 20:00 03/31/23 00:00 Temperature 36.9 C Pulse Rate 65 78 75 Respiratory Rate 20 Blood Pressure 122/58 L Pulse Oximetry 99 Oxygen Delivery Oxygen Flow Rate Fraction of Inspired Oxygen 03/31/23 04:00 03/31/23 02:30 03/31/23 06:32 Temperature 36.5 C Pulse Rate 75 79 84 Respiratory Rate 24 H 16 Blood Pressure 133/55 L Pulse Oximetry 96 94 Oxygen Delivery BiPAP Oxygen Flow Rate Fraction of Inspired Oxygen 03/31/23
--- NOTE | 2023-03-31 13:24 | PCOTNOTE ---
Spoke with hospitalist, Dr. Scanlon, who confirms that pt. can mobilize with therapy services and approves for nursing to change activity orders from bedrest.
--- NOTE | 2023-03-31 15:40 | PC.NURSE ---
Reviewed assessment placed by Cristela Cervantes Student nurse of [facility]. Agree with assessment. Medications passed by Cristela under supervision of this fiction and nonfiction writer prose and assigned RN. Reviewed chart with Cristela and discussed assessments and any interventions. RN will be given report at end of clinical day.
[2023-03-31] MEDS: AMOXICILLIN/CLAVULANATE K 875-125 MG TAB 1 TABLET PO (16:21)
[2023-03-31] MEDS: ACETAMINOPHEN 325 MG TABLET 650 MG PO (18:33)
[2023-03-31] MEDS: LOPERAMIDE HCL 2 MG CAPSULE PO (18:39)
[2023-03-31] MEDS: ALPRAZolam (*CRX) 0.5 MG TABLET PO (20:33)
[2023-04-01] VITALS (18 sets, daily range): BP systolic 116–160; BP diastolic 44–89; PULSE 9–102; RESP 16–26; TEMP 36.1–36.6; O2SAT 94–100
[2023-04-01] MEDS: CENTRAL LINE FLUSH 10 ML IV PUSH ×3 (05:34→20:55)
[2023-04-01] MEDS: FUROSEMIDE INJ 40 MG/4 ML VIAL IV PUSH ×3 (05:34→21:00)
[2023-04-01 05:59] LABS: Basophils Percent Auto 0.7 % (0.2-1.2); Eosinophils Absolute Auto 0.1 K/mm3 (0-0.3); Eosinophils Percent Auto 3.2 % (0-4.4); Hematocrit 30.1 % (37.0-47.0); Hemoglobin 8.2 g/dL (12.0-15.0); Immature Granulocyte Absolute 0.02 K/mm3 (0.00-0.031); Immature Granulocyte Percent A 0.5 % (0-0.5); Lymphocytes Absolute Auto 1.16 K/mm3 (0.9-3.2); Lymphocytes Percent Auto 26.9 % (18.3-44.2); Mean Corpuscular HGB Conc 27.2 g/dl (32-36); Mean Corpuscular Hemoglobin 24.7 pg (26-34); Mean Corpuscular Volume 90.7 fl (80-100); Mean Platelet Volume 10.1 fl (7.4-10.4); Monocytes Absolute Auto 0.5 K/mm3 (0.1-0.6); Monocytes Percent Auto 10.4 % (2.6-8.5); Neutrophils Absolute Auto 2.5 K/mm3 (1.3-6.7); Neutrophils Percent Auto 58.3 % (45.5-73.1); Platelet Count Result 102 k/mm3 (150-375); Red Blood Count 3.32 M/mm3 (4.2-5.4); Red Cell Distribution Width 20.5 % (11.5-14.5); White Blood Count 4.3 K/mm3 (4.5-10.0)
[2023-04-01 06:13] LABS: Carbon Dioxide > 40 mmol/L (22-30); Chloride 90 mmol/L (98-107); Potassium 3.3 mmol/L (3.4-5.0); Sodium 135 mmol/L (137-145)
[2023-04-01 06:14] LABS: Blood Urea Nitrogen 19 mg/dL (7-17); Calcium 8.4 mg/dL (8.4-10.2); Estimated CRCL calculation 127 ml/min; Estimated Glomerular Filt Rate > 60; Glucose 93 mg/dL (65-110)
[2023-04-01 06:22] LABS: Alveolar/Arterial O2 Gradient 124.2 mmHg; Base Excess ABG 17.9 mEq/l (+/-2.0); Fractional Inspired Oxygen 40 %; HCO3 ABG 45.9 mEq/l (22.0-26.0); PO2 ABG 70.6 mmHg (80.0-100.0); PO2 FiO2 Ratio Arterial Blood 1.76 %; Total Hemoglobin 9.9 g/dL (12.0-18.0); pH ABG 7.384 (7.350-7.450)
[2023-04-01 06:26] LABS: Device BIPAP; Modified Allen's Test Pass; PCO2 ABG 78.6 mmHg (35.0-45.0); Site Drawn RIGHT RADIAL
[2023-04-01 06:27] LABS: Expiratory Pressure 8 cmH2O
[2023-04-01 07:02] LABS: Platelet Estimate Decreased (Adequate)
[2023-04-01 07:03] LABS: Anisocytosis 1+ (NORMAL); Basophilic Stippling 1+ (NORMAL); Hypochromasia 2+ (NORMAL); Schistocytes None Seen (NORMAL)
[2023-04-01] MEDS: LOPERAMIDE HCL 2 MG CAPSULE PO (08:33)
[2023-04-01] MEDS: AMOXICILLIN/CLAVULANATE K 875-125 MG TAB 1 TABLET PO ×2 (08:33→16:50)
[2023-04-01] MEDS: DOXYCYCLINE HYCLATE 100 MG TABLET PO ×2 (08:34→20:54)
[2023-04-01] MEDS: ACETAMINOPHEN 325 MG TABLET 650 MG PO (08:34)
[2023-04-01] MEDS: APIXABAN 5 MG TABLET PO ×2 (08:34→20:54)
[2023-04-01] MEDS: ALPRAZolam (*CRX) 0.5 MG TABLET PO ×2 (08:35→20:55)
[2023-04-01] MEDS: TOLNAFTATE 1% POWDER 45 GM BTL 1 APPLIC TOPICAL ×2 (08:36→16:48)
--- NOTE | 2023-04-01 08:51 | PM.PNPUL ---
Progress Note: A&P Assessment and Plan (1) Acute respiratory failure with hypoxia and hypercarbia: Code(s): J96.01 - Acute respiratory failure with hypoxia; J96.02 - Acute respiratory failure with hypercapnia Status: Acute Assessment and Plan: Patient's respiratory status has improved following treatment with diuretics, noninvasive ventilatory support via BiPAP AVAPS and also treatment for atrial fibrillation. Apnea link study last night showed adequate oxygenation on current BiPAP settings and supplemental oxygen at 3 liters/minute. Efforts are underway to transfer patient to shelter facility where she will continue with noninvasive ventilatory support and supplemental oxygen. Orders for noninvasive ventilatory support have been sent. Today's ABGs showed normal pH. Plan I would discontinue Diamox and repeat ABGs in a.m.. Stomach complaints could be related to Diamox. I would also decrease Lasix to 40 mg p.o. daily. (2) Obesity hypoventilation syndrome: Code(s): E66.2 - Morbid (severe) obesity with alveolar hypoventilation Status: Acute (3) Acute exacerbation of CHF (congestive heart failure): Code(s): I50.9 - Heart failure, unspecified Status: Acute (4) CHF (congestive heart failure), NYHA class I: Code(s): I50.9 - Heart failure, unspecified Status: Acute (5) Cellulitis: Qualifiers: Site of cellulitis: trunk Site of cellulitis of trunk: abdominal wall Qualified Code(s): L03.311 - Cellulitis of abdominal wall Code(s): L03.90 - Cellulitis, unspecified Status: Acute (6) Type 2 diabetes mellitus without complications: Code(s): E11.9 - Type 2 diabetes mellitus without complications Status: Acute Subjective Date/time seen: 04/01/23 08:51 Interval history: Patient has no new respiratory symptoms. Slept well last night on BiPAP. Underwent ApneaLink study last night. Complains of upset stomach. Review of Systems Review of Systems: All systems reviewed & are unremarkable except as noted in HPI and below (HPI and below) Exam Narrative: GENERAL APPEARANCE: Well developed, well nourished, alert and cooperative, morbidly obese female, laying in bed in semi recumbent position. SKIN: Inspection of the skin reveals no rashes, ulcerations or petechiae. HEENT: Sclerae anicteric and conjunctivae pink and moist. Extraocular movements were intact and pupils were equal, round. The oral mucosa, hard and soft palate, tongue and posterior pharynx were normal. NECK: Supple. There was no thyroid enlargement, and no tenderness, or masses were felt. LUNGS: Clear lungs anteriorly CARDIAC: There was an irregular rate and rhythm without any murmurs, gallops, rubs. ABDOMEN: Obese, soft and nontender. EXTREMITIES: Lower extremity edema bilaterally, erythematous area left foot dorsal aspect NEUROLOGIC: Alert and oriented x 3. Normal affect. Objective Data Vital Signs Vital Signs: Vital Signs - 24 hr 03/31/23 12:00 03/31/23 12:01 03/31/23 13:52 Temperature 35.5 C L Pulse Rate 84 112 H Respiratory Rate 20 Blood Pressure 120/56 L Pulse Oximetry 98 Oxygen Delivery Nasal Cannula Oxygen Flow Rate 3 Fraction of Inspired Oxygen 03/31/23 13:24 03/31/23 16:03 03/31/23 16:00 Temperature 35.7 C L Pulse Rate 99 90 Respiratory Rate 22 H Blood Pressure 137/43 L Pulse Oximetry 98 Oxygen Delivery Nasal Cannula Oxygen Flow Rate 3 Fraction of Inspired Oxygen 03/31/23 20:54 03/31/23 20:00 03/31/23 20:00 Temperature 36.4 C Pulse Rate 87 87 Respiratory Rate 16 Blood Pressure 126/49 L Pulse Oximetry 96 98 Oxygen Delivery Nasal Cannula Oxygen Flow Rate 3 Fraction of Inspired Oxygen 03/31/23 22:05 04/01/23 00:00 04/01/23 02:00 Temperature 36.4 C Pulse Rate 98 84 100 Respiratory Rate 18 16 Blood Pressure 114/56 L 116/52 L Pulse Oximetry 99 100 Oxygen Delivery Oxygen [place]
--- NOTE | 2023-04-01 13:13 | PM.IMPN ---
Progress Note: A&P Assessment and Plan (1) Acute exacerbation of CHF (congestive heart failure): Code(s): I50.9 - Heart failure, unspecified Status: Acute Assessment and Plan: Significant bilateral pulmonary edema on chest Xray. continue diuretics The patient may have high-output heart failure from obesity and chronic hypoxemia and hypercapnia. Continue lasix 40 mg iv q8h dc diamox (2) Obesity hypoventilation syndrome: Code(s): E66.2 - Morbid (severe) obesity with alveolar hypoventilation Status: Acute Assessment and Plan: Patient should be started on BiPAP on BiPAP through the night to improve, has changed to AVAPS point neurologist recommendation in night Follow-up ABG off O2 during the day order ABG indu am (3) Acute respiratory failure with hypoxia and hypercarbia: Code(s): J96.01 - Acute respiratory failure with hypoxia; J96.02 - Acute respiratory failure with hypercapnia Status: Acute Assessment and Plan: Resulting from obesity hypoventilation syndrome and acute heart failure/fluid overload iv lasix (4) Metabolic alkalosis with respiratory acidosis: Code(s): E87.4 - Mixed disorder of acid-base balance Status: Acute Assessment and Plan: for this patient compensatory for the primary respiratory acidosis for this pt f/u bmp (5) Right heart failure due to left heart failure: Code(s): I50.814 - Right heart failure due to left heart failure Status: Acute Assessment and Plan: Acute on chronic diastolic heart failure Echocardiogram March 26 reveals normal EF of left ventricle, mild reduced right ventricle function Continue 40 mg of IV Lasix q.8 hours until her creatinine rises. Venous Doppler of lower extremity cannot find DVT Less likely PE Therapeutic Lovenox were changed to heparin 5000 q.8 hours or subcu. now has negative fluid balance (6) Elevated d-dimer: Code(s): R79.89 - Other specified abnormal findings of blood chemistry Status: Acute Assessment and Plan: CXR still has pulmonary edema Less likely PE Will stop lovenox bid 180 mg sq bid tomorrow Follow-up venous Doppler of upper extremities LEs negative for DVT (7) Cellulitis of groin: Code(s): L03.314 - Cellulitis of groin Status: Acute Assessment and Plan: Right knee, tender, spotting of skin bilateral groin, Servo imposed with fungal infection Patient had low-grade fever Started doxycycline 100 mg q.12 hours p.o., Unasyn IV,03/28 Continue miconazole nitrate topical use afeb and cellulitis is improving, Change to doxycycline and Augmentin p.o. today Plan PATIENT IS AWAITING FOR PLACEMENT TO [facility]. Patient needs a Trelegy or BiPAP at discharge Subjective Date/time seen: 04/01/23 13:13 Interval history: Pt improving likely dc to [place] soon Pt admited CHF excerbation, Severe morbid obesity deconditioned and bedbound state Respiratory status improving watch ABG dc soon once bed is available Discussed case with pulmology Review of Systems Review of Systems: Ongoing sob Exam Narrative: Gen: No obvious distress, pleasant person, HENT: unremarkable Eyes: EOMI Neck: supple, full ROM, jvd difficult to assess Lungs: Coarse breath sound bilateral bases, no respiratory distress CV: rrr, nl s1, s2, displaced PMI Abd: soft, nt, nd, bs+ Skin: Redness, swelling, tenderness bilateral groin with scaly rashes but improving Ext: 4+ pitting edema BL Neuro: tired, not following commands willingly Objective Data Vital Signs Vital Signs: Vital Signs - 24 hr 03/31/23 13:52 03/31/23 13:24 03/31/23 16:03 Temperature Pulse Rate 99 Respiratory Rate Blood Pressure Pulse Oximetry Oxygen Delivery Nasal Cannula Nasal Cannula Oxygen Flow Rate 3 3 Fraction of Inspired Oxygen 03/31/23 16:00 03/31/23 20:54 03/31/23 20:00 Temperature 35.7 C L 36.
[2023-04-01] MEDS: lamoTRIgine 100 MG TABLET PO (14:08)
[2023-04-01] MEDS: SPIRONOLACTONE 25 MG TABLET PO (14:09)
[2023-04-01] MEDS: GABAPENTIN 300 MG CAPSULE PO ×2 (14:09→16:50)
--- NOTE | 2023-04-01 15:26 | PCRCNOTE ---
TRILOGY UNIT WILL BE PROVIDED TO PATIENT BY THE FACILITY WHILE SHE IS IN DETENTION FACILITY, [facility]. ONCE THE PATIENT IS DISCHARGED FROM SNF, SHE WILL BE GIVEN A TRILOGY HOME NIV UNIT PROVIDED AND SERVICED WITH [facility]. MAHESH AT [facility] WILL STAY IN CONTACT WITH NURSING STAFF AT [facility] TO ENSURE EQUIPMENT IS SET UP WHEN SHE D/C TO HOME.
[2023-04-01] MEDS: WATER FOR IRRIGATION, STERILE 1,000 ML BOTTLE 1000 ML (16:48)
[2023-04-01] MEDS: carvediloL 12.5 MG TABLET PO (16:49)
[2023-04-01] MEDS: POTASSIUM CHLORIDE 20 MEQ PACKET (FOR LIQUID) PO (16:49)
[2023-04-02] VITALS (13 sets, daily range): BP systolic 126–141; BP diastolic 55–87; PULSE 73–93; RESP 18–24; TEMP 36.3–36.8; O2SAT 94–100
[2023-04-02] MEDS: CENTRAL LINE FLUSH 10 ML IV PUSH (06:16)
[2023-04-02] MEDS: FUROSEMIDE INJ 40 MG/4 ML VIAL IV PUSH (06:17)
[2023-04-02] MEDS: LEVOTHYROXINE SODIUM 75 MCG TABLET PO (06:17)
[2023-04-02 06:21] LABS: Basophils Percent Auto 0.8 % (0.2-1.2); Eosinophils Absolute Auto 0.1 K/mm3 (0-0.3); Eosinophils Percent Auto 2.8 % (0-4.4); Hematocrit 31.5 % (37.0-47.0); Hemoglobin 8.4 g/dL (12.0-15.0); Immature Granulocyte Absolute 0.01 K/mm3 (0.00-0.031); Immature Granulocyte Percent A 0.2 % (0-0.5); Lymphocytes Absolute Auto 1.15 K/mm3 (0.9-3.2); Lymphocytes Percent Auto 24.4 % (18.3-44.2); Mean Corpuscular HGB Conc 26.7 g/dl (32-36); Mean Corpuscular Hemoglobin 25.1 pg (26-34); Mean Platelet Volume 10.6 fl (7.4-10.4); Monocytes Absolute Auto 0.6 K/mm3 (0.1-0.6); Monocytes Percent Auto 12.1 % (2.6-8.5); Neutrophils Absolute Auto 2.8 K/mm3 (1.3-6.7); Neutrophils Percent Auto 59.7 % (45.5-73.1); Platelet Count Result 106 k/mm3 (150-375); Red Blood Count 3.35 M/mm3 (4.2-5.4); Red Cell Distribution Width 20.5 % (11.5-14.5); White Blood Count 4.7 K/mm3 (4.5-10.0)
[2023-04-02 06:42] LABS: Blood Urea Nitrogen 22 mg/dL (7-17); Calcium 8.2 mg/dL (8.4-10.2); Carbon Dioxide > 40 mmol/L (22-30); Chloride 91 mmol/L (98-107); Estimated CRCL calculation 119 ml/min; Estimated Glomerular Filt Rate 59; Glucose 110 mg/dL (65-110); Potassium 3.6 mmol/L (3.4-5.0); Sodium 140 mmol/L (137-145)
[2023-04-02 07:06] LABS: Anisocytosis 1+ (NORMAL); Hypochromasia 1+ (NORMAL); Microcytosis 1+ (NORMAL); Platelet Estimate Decreased (Adequate)
[2023-04-02 07:09] LABS: Schistocytes None Seen (NORMAL)
[2023-04-02 08:12] LABS: Alveolar/Arterial O2 Gradient 99.5 mmHg; Base Excess ABG 19.5 mEq/l (+/-2.0); Fractional Inspired Oxygen 40 %; HCO3 ABG 48.9 mEq/l (22.0-26.0); Oxygen Content ABG 13.3 %vol (16.0-22.0); Oxygen Saturation ABG 93.9 % (95.0-100.0); Oxyhemoglobin 93.9 % THb (90.0-100.0); PO2 ABG 78.6 mmHg (80.0-100.0); PO2 FiO2 Ratio Arterial Blood 1.96 %; pH ABG 7.338 (7.350-7.450)
[2023-04-02 08:23] LABS: Glucose Point of Care 96 mg/dl (65-105)
[2023-04-02 08:30] LABS: Device NON-INVASIVE VENT; Modified Allen's Test Pass; Non-Invasive Vent Rate 20 /MIN; PCO2 ABG 93.1 mmHg (35.0-45.0); Site Drawn RIGHT RADIAL
[2023-04-02 08:31] LABS: Non-Invasive Expiratory Pressure 8 CMH2O
--- NOTE | 2023-04-02 08:32 | PCRCNOTE ---
Reported 0800 critical results to RN, Informed Dr. Draper of critical PCO2 levels, He informed RN and RT to sit patient up in bed, place pt on regular nasal cannula and repeat ABG at 1130.
--- NOTE | 2023-04-02 08:32 | PM.PNPUL ---
Progress Note: A&P Assessment and Plan (1) Acute respiratory failure with hypoxia and hypercarbia: Code(s): J96.01 - Acute respiratory failure with hypoxia; J96.02 - Acute respiratory failure with hypercapnia Status: Acute Assessment and Plan: Patient's respiratory status has improved following treatment with diuretics, noninvasive ventilatory support via BiPAP AVAPS and also treatment for atrial fibrillation. Apnea link study last night showed adequate oxygenation on current BiPAP settings and supplemental oxygen at 3 liters/minute. Patient's transferred to skilled nurse facility has been approved. In addition noninvasive ventilatory support at the nursing facility and also at home also has been approved. ABGs this a.m. while the patient still on BiPAP support showed higher pCO2 in the low 90s range. Patient has been on opiates also on tranquilizers, which may explain the worsening of hypercapnia. Patient remaining fully awake not having any new respiratory issues. Plan: Patient will be placed back on supplemental oxygen at 3 liters/minute, be seated up in bed and have a repeat blood gases in approximately 2-3 hours. Have discontinued Lasix as patient has been over 6 L fluid negative since admission. I would also limit use of opiates and tranquilizers as these agents mayl decrease respiratory drive and worsen hypercapnia. (2) Obesity hypoventilation syndrome: Code(s): E66.2 - Morbid (severe) obesity with alveolar hypoventilation Status: Acute (3) Acute exacerbation of CHF (congestive heart failure): Code(s): I50.9 - Heart failure, unspecified Status: Acute (4) CHF (congestive heart failure), NYHA class I: Code(s): I50.9 - Heart failure, unspecified Status: Acute (5) Cellulitis: Qualifiers: Site of cellulitis: trunk Site of cellulitis of trunk: abdominal wall Qualified Code(s): L03.311 - Cellulitis of abdominal wall Code(s): L03.90 - Cellulitis, unspecified Status: Acute (6) Type 2 diabetes mellitus without complications: Code(s): E11.9 - Type 2 diabetes mellitus without complications Status: Acute Subjective Date/time seen: 04/02/23 08:32 Interval history: Patient still on BiPAP support this a.m.. She has no new respiratory complaints. ABGs done this a.m. showed higher pCO2 and lower PH. Review of Systems Review of Systems: All systems reviewed & are unremarkable except as noted in HPI and below (HPI and below) Exam Narrative: GENERAL APPEARANCE: Well developed, well nourished, alert and cooperative, morbidly obese female, laying in bed in semi recumbent position. SKIN: Inspection of the skin reveals no rashes, ulcerations or petechiae. HEENT: Sclerae anicteric and conjunctivae pink and moist. Extraocular movements were intact and pupils were equal, round. The oral mucosa, hard and soft palate, tongue and posterior pharynx were normal. NECK: Supple. There was no thyroid enlargement, and no tenderness, or masses were felt. LUNGS: Clear lungs anteriorly CARDIAC: There was an irregular rate and rhythm without any murmurs, gallops, rubs. ABDOMEN: Obese, soft and nontender. EXTREMITIES: Lower extremity edema bilaterally, erythematous area left foot dorsal aspect NEUROLOGIC: Alert and oriented x 3. Normal affect. Objective Data Vital Signs Vital Signs: Vital Signs - 24 hr 04/01/23 08:36 04/01/23 12:01 04/01/23 12:00 Temperature 36.6 C Pulse Rate 97 80 Respiratory Rate 20 18 Blood Pressure 130/53 L Pulse Oximetry 94 98 Oxygen Delivery Nasal Cannula Oxygen Flow Rate 3 04/01/23 13:51 04/01/23 16:03 04/01/23 16:49 Temperature 36.6 C Pulse Rate 80 91 89 Respiratory Rate 18 Blood Pressure 132/56 L Pulse Oximetry 96 Oxygen Delivery Oxygen Flow Rate 04/01/23 17:19 04/01/23 20:41 04/01/23 20:55 Temperature 36.1 C L 36.6 C Pulse Rate 9 L 96 Respiratory Rate 18 16 Blood Pre
[2023-04-02] MEDS: DOXYCYCLINE HYCLATE 100 MG TABLET PO (09:14)
[2023-04-02] MEDS: lamoTRIgine 100 MG TABLET PO (09:14)
[2023-04-02] MEDS: carvediloL 12.5 MG TABLET PO ×2 (09:14→16:35)
[2023-04-02] MEDS: APIXABAN 5 MG TABLET PO (09:14)
[2023-04-02] MEDS: POTASSIUM CHLORIDE 20 MEQ PACKET (FOR LIQUID) PO ×2 (09:14→16:35)
[2023-04-02] MEDS: AMOXICILLIN/CLAVULANATE K 875-125 MG TAB 1 TABLET PO ×2 (09:14→16:35)
[2023-04-02] MEDS: GLIMEPIRIDE 1 MG TABLET PO (09:14)
[2023-04-02] MEDS: SPIRONOLACTONE 25 MG TABLET PO (09:14)
[2023-04-02] MEDS: TOLNAFTATE 1% POWDER 45 GM BTL 1 APPLIC TOPICAL ×3 (09:15→16:35)
[2023-04-02] MEDS: GABAPENTIN 300 MG CAPSULE PO ×3 (09:20→16:35)
--- NOTE | 2023-04-02 11:05 | PCNFU ---
Nutrition Follow-Up Complete: Excessive Energy Intake as related to obesity as evidenced by BMI: 96.1 goal: meet estimated nutritional needs advance diet as tolerated to DBCC/heart healthy Patient is meeting goal. No new goal. Pt current nutrition is DBCC. Last recorded weight is 242 kg. Bowel Motility: +Bm reported 04/01 Labs Reviewed:BUN 22, Hct 31.5,Hgb 8.4 Meds Noted:Lasix, Synthroid. Skin:WNL Additional Notes: Patient is tolerating DBCC diet. Eating 75-100% of meals. Plans for SNF at discharge. Agree with diet orders. Will monitor weight, labs, oral intake,skin every 7 days.
[2023-04-02 11:41] LABS: Alveolar/Arterial O2 Gradient 38.7 mmHg; Base Excess ABG 19.4 mEq/l (+/-2.0); Fractional Inspired Oxygen 28 %; HCO3 ABG 48.1 mEq/l (22.0-26.0); Oxygen Content ABG 12.2 %vol (16.0-22.0); Oxyhemoglobin 88.9 % THb (90.0-100.0); PO2 ABG 57.9 mmHg (80.0-100.0); PO2 FiO2 Ratio Arterial Blood 2.07 %; Total Hemoglobin 9.7 g/dL (12.0-18.0); pH ABG 7.359 (7.350-7.450)
[2023-04-02 11:48] LABS: Device NASAL CANNULA; Modified Allen's Test Pass; PCO2 ABG 87.3 mmHg (35.0-45.0); Site Drawn RIGHT RADIAL
[2023-04-02 11:59] LABS: Glucose Point of Care 136 mg/dl (65-105)
--- NOTE | 2023-04-02 12:08 | PC.NURSE ---
Swimming Pool Attendant called Dr. Draper regarding ABG's, and reports okay to D/C as arranged oxygen at [facility], Home Non invasive vent, follow up with pulmonology in 4wks. Dr. East made aware
[2023-04-02] MEDS: ALPRAZolam (*CRX) 0.5 MG TABLET PO (12:31)
[2023-04-02 12:52] LABS: SARS-CoV-2 RNA PCR Negative (Negative)
--- NOTE | 2023-04-02 13:03 | PM.DS ---
DS: Admitting Diagnosis Discharge Date 03/27/2023 Admitting Diagnosis Shortness of breath DS: Discharge Diagnosis Discharge Diagnosis (1) Acute exacerbation of CHF (congestive heart failure): Code(s): I50.9 - Heart failure, unspecified Status: Acute Assessment and Plan: Significant bilateral pulmonary edema on chest Xray. The patient may have high-output heart failure from obesity and chronic hypoxemia and hypercapnia. Continue lasix 40 mg iv q8h dc diamox Pt appears more stable able to dc to [facility] on 3 liters of oxygen (2) Obesity hypoventilation syndrome: Code(s): E66.2 - Morbid (severe) obesity with alveolar hypoventilation Status: Acute Assessment and Plan: morbid obesity pt benefits from referral to [facility] service states she is on a waiting list recommend non invasive ventilation at night (3) Acute respiratory failure with hypoxia and hypercarbia: Code(s): J96.01 - Acute respiratory failure with hypoxia; J96.02 - Acute respiratory failure with hypercapnia Status: Acute Assessment and Plan: Resulting from obesity hypoventilation syndrome and acute heart failure/fluid overload iv lasix pt is more stable ok to DC (4) Metabolic alkalosis with respiratory acidosis: Code(s): E87.4 - Mixed disorder of acid-base balance Status: Acute Assessment and Plan: for this patient compensatory for the primary respiratory acidosis for this pt f/u bmp (5) Right heart failure due to left heart failure: Code(s): I50.814 - Right heart failure due to left heart failure Status: Acute Assessment and Plan: Acute on chronic diastolic heart failure Echocardiogram March 26 reveals normal EF of left ventricle, mild reduced right ventricle function Continue 40 mg of IV Lasix q.8 hours until her creatinine rises. transition to oral lasix Venous Doppler of lower extremity cannot find DVT (6) Elevated d-dimer: Code(s): R79.89 - Other specified abnormal findings of blood chemistry Status: Acute Assessment and Plan: CXR still has pulmonary edema Less likely PE Will stop lovenox bid 180 mg sq bid tomorrow Follow-up venous Doppler of upper extremities LEs negative for DVT (7) Cellulitis of groin: Code(s): L03.314 - Cellulitis of groin Status: Acute Assessment and Plan: Right knee, tender, spotting of skin bilateral groin, Servo imposed with fungal infection Patient had low-grade fever Started doxycycline 100 mg q.12 hours p.o., Unasyn IV,03/28 Continue miconazole nitrate topical use afeb and cellulitis is improving, Change to doxycycline and Augmentin p.o. today Plan PATIENT IS AWAITING FOR PLACEMENT TO [facility]. DS: Summary Hospital Course Hospital Course: 1-year-old female who recently has had 2 readmissions in the past who is presenting to the ER with a chief complaint of shortness of breath.? The patient has a history of morbid obesity and congestive heart failure.? She was transferred from the [facility] for worsening shortness of breath and decreased responsiveness.? History of the ER was limited due to altered mental status. The patient's past medical history includes type 2 diabetes, hypertension, severe obesity, lymphedema, congestive heart failure.? She also has CKD.? The patient's recent admissions include declining rehab placement, transferred to [facility], and then admitting to [facility].? At baseline the patient is on 1-2 L of oxygen by nasal cannula at the fdc.? The patient was recently treated for MRSA cellulitis of the abdomen/pannus with linezolid about 1 week ago. In the ER the patient is noted to have a weight of 240 EKGs.? ABG on admission to the ER is pH 7.05, pCO2 of 161.? PO2 of 83.? The patient was placed on BiPAP after the CABG.? Now still on BiPAP she has improved to a pH of 7.1, pCO2 131, PO2 of 58.? We will increase this patient's ox
[2023-04-02] MEDS: NEOMYCIN/POLYMYXIN/BACITRACIN OINTMENT PACKET 1 PACKET (15:11)
== END 2023-04-02 17:30 | DRG 205 ==
LOC: ANHED 03-27 01:12 → ANHICU 03-27 02:12 → ANH2MED 03-29 14:06
PROVIDERS: Hospitalist; Internal Medicine Pulmonary Disease; Admitting Provider Internal Medicine; Emergency Provider Emergency Medicine; PCP Internal Medicine; Visit Provider Family Medicine
DX: E66.2 Morbid (severe) obesity with alveolar hypoventilation (principal); I50.33 Acute on chronic diastolic (congestive) heart failure; J96.01 Acute respiratory failure with hypoxia; J96.02 Acute respiratory failure with hypercapnia; Z68.45 Body mass index [BMI] 70 or greater, adult; I13.0 Hypertensive heart and chronic kidney disease with heart failure and stage 1 through stage 4 chronic kidney disease, or unspecified chronic kidney disease; E87.4 Mixed disorder of acid-base balance; L03.314 Cellulitis of groin; I50.814 Right heart failure due to left heart failure; I48.0 Paroxysmal atrial fibrillation; N18.9 Chronic kidney disease, unspecified; E11.42 Type 2 diabetes mellitus with diabetic polyneuropathy; E53.8 Deficiency of other specified B group vitamins; E55.9 Vitamin D deficiency, unspecified; E03.9 Hypothyroidism, unspecified; I89.0 Lymphedema, not elsewhere classified; I87.2 Venous insufficiency (chronic) (peripheral); K58.0 Irritable bowel syndrome with diarrhea; F41.9 Anxiety disorder, unspecified; G60.9 Hereditary and idiopathic neuropathy, unspecified; F32.9 Major depressive disorder, single episode, unspecified; Z20.822 Contact with and (suspected) exposure to COVID-19; Z86.010 Personal history of colon polyps; Z74.01 Bed confinement status
CPT/HCPCS: 36415; 36569; 36600; 71045; 80048; 80053; 81001; 82805; 82948; 83605; 83735; 83880; 84145; 84439; 84443; 84484; 85025; 85027; 85380; 85610; 85730; 87040; 87635; 87637; 93005; 93970; 94002; 94762; 96374; 97110; 97162; 97166; 97530; 99284; 99285; A9270; J0295; J1644; J1650; J1940; J3480; J7040

== ENCOUNTER 2023-10-23 11:57 | Inpatient (IN) | payer MEDICARE, MEDICAID, SELFPAY ==
[2023-10-23] VITALS (20 sets, daily range): BP systolic 108–159; BP diastolic 55–75; PULSE 80–117; RESP 15–24; TEMP 36.3–36.6; O2SAT 95–100; BMI 66.6
--- NOTE | ~2023-10-23 | US_ITS ---
EXAMINATION: US venous doppler [facility] DATE: 10/23/2023 14:24 INDICATION: Lower limb pain, swelling and erythema TECHNIQUE: Grayscale ultrasound images without and with compression and Doppler ultrasound images of the bilateral lower extremity veins were obtained. COMPARISON: 03/27/2023 FINDINGS/IMPRESSION: Essentially nondiagnostic study due to combination body habitus and extensive soft tissue edema which obscures the vessels throughout both lower limbs precluding assessment for deep venous thrombosis. Reviewed, dictated and finalized at location L.
--- NOTE | ~2023-10-23 | XR_ITS ---
EXAMINATION: XR chest 2V DATE: 10/23/2023 12:54 INDICATION: Shortness of breath. Leg edema. TECHNIQUE: Frontal and lateral views of the chest were obtained. COMPARISON: Chest single view 03/28/2023 FINDINGS: There is a diffuse interstitial pattern, consistent with mild pulmonary edema. No pleural e ffusion or pneumothorax. Cardiomegaly is noted. Surgical clips overlie right abdomen. IMPRESSION: 1. Mild pulmonary edema. 2. Cardiomegaly. Reviewed, dictated and finalized at location A.
--- NOTE | 2023-10-23 12:01 | ED.SOB ---
HPI - SOB/Dyspnea General Chief Complaint: Shortness of Breath/Dyspnea Stated Complaint: SOB, fluid retention Time Seen by Provider: 10/23/23 12:00 History of Present Illness HPI Narrative: Patient is a 48 year of female with history of CHF, DM, paroxysmal afib, here with shortness of breath. She states that she had multiple hospitalizations recently, was discharged to rehab facility about 10 days ago on some supplemental oxygen during the day with the BiPAP at night. She states that she has since weaned off of daytime oxygen but continues to wear her BiPAP at night. She has had an increased wheeze over the last 10 days. She has also noticed increase in weight. She has had some worsening bilateral leg swelling and when she was weighed today at her rehab facility her weight was 387, admission weight was 344. It is suspected that she increased more than 40 lb over the last 10 days. She does take diuretics, has not taken any of her morning medications. She is on Eliquis for paroxysmal AFib. She denies prior DVT. She denies any chest pain. She notes a dry nonproductive cough which has increased recently as well. She denies sick contacts. Related Data Home Medications Medication Instructions Recorded Confirmed levothyroxine 75 mcg tablet 75 mcg PO DAILY 03/14/23 10/23/23 Daily Multivitamin 1 tablet PO DAILY 09/23/23 10/23/23 acetaminophen 325 mg tablet 650 mg PO Q6H PRN Mild Pain (1-3) 09/23/23 10/23/23 Or Fever insulin lispro 0 - 12 units subcut DAILY PRN High 09/23/23 09/23/23 Blood Sugar metoprolol tartrate 12.5 mg PO BID 09/23/23 10/23/23 sucralfate 1 gram tablet 1 g PO DAILY 09/23/23 10/23/23 albuterol sulfate 2.5 mg/0.5 mL 2.5 mg inhalation Q6H PRN 10/23/23 10/23/23 solution for nebulization Shortness Of Breath bumetanide 1 mg tablet 1 mg PO DAILY 10/23/23 10/23/23 bumetanide 2 mg tablet 2 mg PO QAM 10/23/23 10/23/23 buspirone 15 mg tablet 15 mg PO TID 10/23/23 10/23/23 ferrous sulfate 325 mg (65 mg 325 mg PO DAILY 10/23/23 10/23/23 iron) capsule,extended release metoclopramide HCl 10 mg tablet 10 mg PO TID 10/23/23 10/23/23 pantoprazole 40 mg tablet,delayed 40 mg PO BID 10/23/23 10/23/23 release paroxetine HCl 10 mg tablet 10 mg PO QAM 10/23/23 10/23/23 potassium chloride 20 mEq 40 meq PO BID 10/23/23 10/23/23 tablet,extended release sennosides 8.6 mg-docusate sodium 1 tab-cap PO HS 10/23/23 10/23/23 50 mg tablet (Senna Plus) spironolactone 25 mg tablet 12.5 mg PO DAILY 10/23/23 10/23/23 Allergies Allergy/AdvReac Type Severity Reaction Status Date / Time Sulfa (Sulfonamide Allergy Mild HIVES, Verified 10/23/23 12:08 Antibiotics) SWELLING sulfamethoxazole Allergy Mild HIVES, Verified 10/23/23 12:08 SWELLING sulfamethizole Allergy Unknown Hives Verified 10/23/23 12:08 trimethoprim Allergy Unknown Hives Verified 10/23/23 12:08 Review of Systems Review of Systems: All systems reviewed & are unremarkable except as noted in HPI and below PMFSH Past Medical History Medical History (Updated 10/23/23 @ 21:23 by Yessi Cross MD) Anxiety CHF (congestive heart failure), NYHA class I Chronic respiratory failure requiring treatment with nocturnal BPAP by mask Essential (primary) hypertension H/O adenomatous polyp of colon Hypertension associated with diabetes Hypothyroidism, unspecified Idiopathic peripheral neuropathy Irritable bowel syndrome with diarrhea Lymphedema of both lower extremities Magnesium deficiency Moderate major depression Morbid obesity Psoriasis Stasis dermatitis Type 2 diabetes mellitus without complications Vitamin B12 deficiency Vitamin D deficiency Surgical History Surgical History (Updated 09/24/23 @ 16:23 by Marcin Oropeza DO) H/O arthroscopic knee surgery H/O section X1 H/O dilation and curettage History of tonsillectomy and adenoidectomy Hx of cholecystectomy Family History Family History Mo
--- NOTE | 2023-10-23 12:02 | ECG_ITS ---
Measurements Intervals [place] Rate: 105 P: DE: 0 QRS: -33 QRSD: 107 T: 29 QT: 350 QTc: 463 Interpretive Statements ATRIAL FIBRILLATION WITH RAPID VENTRICULAR RESPONSE VENTRICULAR PREMATURE COMPLEX LEFT AXIS DEVIATION PATTERN CONSISTENT WITH PULMONARY DISEASE BASELINE ARTIFACT- I, II, III, AVR, AVL, V1 ABNORMAL ECG COMPARED TO ECG 03/29/2023 08:09:16 HEART RATE HAS INCREASED Electronically Signed On 10-23-2023 12:47:19 CDT by Arnulfo Yoo D.O.
[2023-10-23 12:50] LABS: Alanine Aminotransferase 28 U/L (6-35); Albumin Level 3.3 g/dL (3.5-5.1); Alkaline Phosphatase 133 U/L (38-126); Anion Gap 4 mmol/L (8-16); Aspartate Amino Transferase 40 U/L (14-36); Bilirubin,Total 0.6 mg/dL (0.2-1.3); Blood Urea Nitrogen 35 mg/dL (7-17); CRP 4.5 mg/dL (<1.0); Calcium 8.8 mg/dL (8.4-10.2); Carbon Dioxide 30 mmol/L (22-30); Chloride 103 mmol/L (98-107); Estimated CRCL calculation 88 ml/min; Estimated Glomerular Filt Rate 53; Glucose 144 mg/dL (65-110); Potassium 3.7 mmol/L (3.4-5.0); Sodium 137 mmol/L (137-145)
[2023-10-23 12:51] LABS: INR 1.2; Partial Thromboplastin Time 37.3 Seconds (22.3-36.8); Prothrombin Time 15.4 Seconds (11.1-14.7)
[2023-10-23 12:58] LABS: NT Pro B Type Natriuretic Pept 1060 pg/mL (19.9-100); Troponin I < 0.012 ng/mL (0.000-0.034)
[2023-10-23] MEDS: BUMETANIDE INJ 1 MG/4 ML VIAL 2 MG IV PUSH (13:23)
[2023-10-23 13:27] LABS: Influenza A QL RT-PCR Negative (Negative); Influenza B QL RT-PCR Negative (Negative); RSV RNA, RT-PCR Negative (Negative); SARS-CoV-2 RNA PCR Negative (Negative)
[2023-10-23 14:03] LABS: Basophils Percent Auto 0.6 % (0.2-1.2); Eosinophils Absolute Auto 0.1 K/mm3 (0-0.3); Eosinophils Percent Auto 1.7 % (0-4.4); Hematocrit 29.2 % (37.0-47.0); Hemoglobin 8.8 g/dL (12.0-15.0); Immature Granulocyte Absolute 0.02 K/mm3 (0.00-0.031); Immature Granulocyte Percent A 0.3 % (0-0.5); Lymphocytes Absolute Auto 1.53 K/mm3 (0.9-3.2); Lymphocytes Percent Auto 22.1 % (18.3-44.2); Mean Corpuscular HGB Conc 30.1 g/dl (32-36); Mean Corpuscular Hemoglobin 26.7 pg (26-34); Mean Corpuscular Volume 88.5 fl (80-100); Monocytes Absolute Auto 0.4 K/mm3 (0.1-0.6); Monocytes Percent Auto 5.9 % (2.6-8.5); Neutrophils Absolute Auto 4.8 K/mm3 (1.3-6.7); Neutrophils Percent Auto 69.4 % (45.5-73.1); Platelet Count Result 213 k/mm3 (150-375); Red Cell Distribution Width 19.4 % (11.5-14.5); White Blood Count 6.9 K/mm3 (4.5-10.0)
--- NOTE | 2023-10-23 15:12 | ECG_ITS ---
Measurements Intervals [place] Rate: 111 P: [place]: 0 QRS: -34 QRSD: 98 T: 32 QT: 365 QTc: 497 Interpretive Statements ATRIAL FIBRILLATION WITH RAPID VENTRICULAR RESPONSE LEFT AXIS DEVIATION PATTERN CONSISTENT WITH PULMONARY DISEASE INFERIOR INFARCT, AGE INDETERMINATE BORDERLINE ST-T WAVE ABNORMALITY- HIGH LATERAL LEADS ABNORMAL ECG COMPARED TO ECG 10/23/2023 12:04:52 NO SIGNIFICANT CHANGES Electronically Signed On 10-23-2023 16:11:44 CDT by Arnulfo Yoo D.O.
[2023-10-23 15:55] LABS: Troponin I < 0.012 ng/mL (0.000-0.034)
[2023-10-23] MEDS: METOPROLOL TARTRATE INJ 5 MG/5 ML VIAL IV PUSH (16:23)
[2023-10-23] MEDS: METOPROLOL TARTRATE 50 MG TAB 12.5 MG PO (16:23)
--- NOTE | 2023-10-23 21:22 | ADMGEN ---
This patient, Peg Nicole, was admitted to Medical Room 348-01. Patient/family oriented to hospital policies and general routines including ID bracelet, bed and alarms, visiting hours, pain management, procedures, bathroom and other care routines, personal items, smoking policy, room service/diet, and visiting hours. Information on how to activate the Rapid Response Team has been discussed. Patient/Family are encouraged to report perceived risks to care and to ask questions if they do not understand what they are told or what they should do.
--- NOTE | 2023-10-23 22:56 | PM.IMHP ---
H&P: HPI History of Present Illness Date/Time: 10/23/23 22:56 Chief Complaint: SOB, Weight Gain/Fluid Retention Narrative: 48 y/o F presents here with SOB and fluid retention with PMH of CHF, chronic respiratory failure requiring nocturnal BPAP, HTN, hypothyroidism, IBS, lymphedema of BLE, depression, obesity, psoriasis, diabetes, and paroxysmal AFib. Patient here via EMS for [facility]. Patient reports increasing wheeze over the last 10 days and a dry nonproductive cough. Also noted she had an increase in weight and bilateral lower extremity edema that has worsened. Patient weight today at 387, upon admission she was 344. Suspected that patient increased more than 40 lb over the last 10 days. Currently on bumetanide 2 mg at 9:00 a.m. & 1 mg at 4:00 p.m. and spironolactone 12.5 mg daily. Did not take her morning doses. Currently at a SNF, was discharged from rehab facility on 10/09, first admitted there on 09/24. Patient has had lengthy hospitalizations recently. in April of 2023, patient was admitted to [facility] and subsequently intubated and had respiratory failure. Had additional hospitalization for GI bleed, was unable to undergo endoscopy or colonoscopy due to body habitus but did receive 3 units of PRBCs. Tracheostomy placed in May of 2023. [facility] June of 2023. Patient started on therapy in June of 2023, dependent with mobility at that time. Now able to stand for short time and can take a few steps with a walker. During most recent hospitalization she was treated for hyperkalemia and fluid overload. Last hospitalization here March of 2023. Denies any fever, chills, or body aches. Initial VS at presentation: 97.8 F, HR 117, RR 17, 159/67, 100% on RA ED workup showed: No leukocytosis, chronic/stable anemia, INR 1.2, K 3.7, creatinine 1.1 (previously 1.0 on 10/08/2023), BNP 1060 (previously 2120 in March of 2023), and viral PCR negative. CXR showed mild pulmonary edema and cardiomegaly. Ultrasound of BLE was limited due to body habitus. Review of Systems Review of Systems: All systems reviewed & are unremarkable except as noted in HPI and below PMFSH Past Medical History Medical History Anxiety CHF (congestive heart failure), NYHA class I Chronic respiratory failure requiring treatment with nocturnal BPAP by mask Essential (primary) hypertension H/O adenomatous polyp of colon Hypertension associated with diabetes Hypothyroidism, unspecified Idiopathic peripheral neuropathy Irritable bowel syndrome with diarrhea Lymphedema of both lower extremities Magnesium deficiency Moderate major depression Morbid obesity Paroxysmal A-fib Psoriasis Stasis dermatitis Type 2 diabetes mellitus without complications Vitamin B12 deficiency Vitamin D deficiency Surgical History Surgical History H/O arthroscopic knee surgery H/O section X1 H/O dilation and curettage History of tonsillectomy and adenoidectomy Hx of cholecystectomy Family History Family History Mother Hypertension Sibling Hypertension Family history of congestive heart failure Other Family history of arthritis Social History Social History Social History: She lives alone and has one child. She is single and disabled. code status full code Smoking status: Never smoker Second hand tobacco smoke exposure: No Alcohol intake: never Substance use: never Substance use type: does not use Do You Feel Safe in your Home?: Yes Lack of Transportation: No Lack of Food: Never True Current Housing: I Have Housing Concerned About Future Housing: No Difficulty Paying Gas/Electric Bills: No Difficulty Paying for
[2023-10-23] MEDS: BUMETANIDE INJ 1 MG/4 ML VIAL IV PUSH (23:45)
[2023-10-24] VITALS (13 sets, daily range): BP systolic 110–121; BP diastolic 51–63; PULSE 65–109; RESP 20–22; TEMP 36.5–36.7; O2SAT 93–100
[2023-10-24] MEDS: ACETAMINOPHEN 325 MG TABLET 650 MG PO (04:24)
--- NOTE | 2023-10-24 04:33 | PC.NURSE ---
[facility] contacted about patients bipap settings. [place] [facility].
[2023-10-24] MEDS: LEVOTHYROXINE SODIUM 75 MCG TABLET PO (05:48)
--- NOTE | 2023-10-24 06:00 | ECHO_ITS ---
Patient Info Name: Peg Nicole Age: 48 years : 1975 Gender: Female Ht: 64 in Wt: 388 lbs BSA: 2.94 m2 HR: 91 bpm BP: 113 / 58 mmHg Heart Rhythm: Sinus Rhythm Technical Quality: Fair Exam Date: 10/24/2023 9:17 AM Exam Location: Echo Lab Patient Status: Inpatient Admit Date: 10/23/2023 Staff Ordering Physician: Yessi Cross MD Family Coach: Lashon Prather RDCS Attending Provider: Heidy Porter MD Exam Type: CA echo dop color flow w con Study Info Indications - heart failure Complete two-dimensional, color flow and Doppler transthoracic echocardiogram is performed with contrast to opacify the left ventricle and to improve the deliniation of the left ventricle endocardial borders. Contrast/Agitated Saline Contrast/Ag. Saline: Definity Amount: 2.00 ml Administered By: Lashon Prather RDCS Existing IV Access: Yes IV Access Condition: patent with no signs of infiltration Summary 1. Technically difficult study because of obesity, definity contrast use. 2. Left ventricular hypertrophy with normal LV size and normal systolic function. 3. Mild right ventricular enlargement. 4. Mild left atrial enlargement. 5. No valvular dysfunction. 6. Compared with examination in this laboratory from March of 2023 the findings are identical. Left Ventricle Left ventricular chamber dimension is normal. Left ventricular systolic function is normal, estimated at 60-65%. There is mild concentric increased left ventricular wall thickness. The left ventricular diastolic function is grade I diastolic dysfunction. Right Ventricle Right ventricular chamber dimension is mildly enlarged. Left Atria Left atrial chamber dimension is mildly enlarged. Right Atria Right atrial chamber dimension is normal. Aortic Valve The aortic valve is normal. Pulmonic Valve The pulmonic valve is not well visualized. Mitral Valve The mitral valve has normal leaflets. Tricuspid Valve The tricuspid valve leaflets are normal. Pericardium/Pleural The pericardium appears normal. Aorta The aortic root size at the sinus of Valsalva is normal. Left Ventricular Outflow Tract Name Value Normal LVOT 2D LVOT Diameter 2.04 cm LVOT Doppler LVOT Peak Gradient 4 mmHg LVOT Mean Gradient 3 mmHg LVOT VTI 22.19 cm LVOT VTI/AV VTI Ratio 0.68 LVOT Stroke Volume 72.15 ml LVOT CO 5.90 l/min LVOT CI 2.00 L/min/m2 Pulmonic Valve Name Value Normal RVOT Doppler RVOT Peak Gradient 3 mmHg PV Doppler PV Peak Gradient 8 mmHg Mitral Valve Name
[2023-10-24 07:55] LABS: Hemoglobin A1C 5.7 % (<5.7)
[2023-10-24 08:30] LABS: Glucose Point of Care 125 mg/dl (65-105)
[2023-10-24] MEDS: busPIRone HCL 5 MG TABLET 15 MG PO ×3 (09:02→18:16)
[2023-10-24] MEDS: APIXABAN 5 MG TABLET PO ×2 (09:02→20:40)
[2023-10-24] MEDS: POTASSIUM CHLORIDE 20 MEQ ER TABLET 40 MEQ PO ×2 (09:02→18:16)
[2023-10-24] MEDS: QUEtiapine FUMARATE 100 MG TABLET PO ×2 (09:02→15:02)
[2023-10-24] MEDS: PANTOPRAZOLE 40 MG TABLET PO ×2 (09:02→20:41)
[2023-10-24] MEDS: lamoTRIgine 100 MG TABLET PO (09:02)
[2023-10-24] MEDS: PARoxetine 10 MG TABLET PO (09:02)
[2023-10-24] MEDS: SPIRONOLACTONE 12.5 MG TABLET PO (09:02)
[2023-10-24] MEDS: EMPAGLIFLOZIN 10 MG TABLET PO (09:02)
[2023-10-24] MEDS: BUMETANIDE INJ 1 MG/4 ML VIAL 2 MG IV PUSH ×2 (09:03→18:16)
[2023-10-24] MEDS: SUCRALFATE 1 GM TABLET PO (09:03)
[2023-10-24] MEDS: METOCLOPRAMIDE HCL 10 MG TABLET PO ×3 (09:03→18:16)
[2023-10-24] MEDS: METOPROLOL TARTRATE 12.5 MG TABLET PO ×2 (09:04→20:41)
--- NOTE | 2023-10-24 09:09 | PC.NURSE ---
Pt refusing luis wraps to legs. Education provided.
[2023-10-24] MEDS: PERFLUTREN LIPID MICROSPHERES 1.5 ML VIAL DILUTED TO 10 ML TOTAL VOLUME IV PUSH (11:00)
[2023-10-24 12:27] LABS: Glucose Point of Care 115 mg/dl (65-105)
--- NOTE | 2023-10-24 12:49 | PM.IMPN ---
Progress Note: A&P Assessment and Plan (1) Acute exacerbation of CHF (congestive heart failure): Qualifiers: Heart failure type: unspecified Qualified Code(s): I50.9 - Heart failure, unspecified Code(s): I50.9 - Heart failure, unspecified Status: Acute Assessment and Plan: Patient presents with SOB and fluid retention. BNP 1060. Troponin negative x 2. CXR showing mild pulmonary edema. Most recent echo (03/2023): EF of 60-65%, normal diastolic function; RV not well visualized but mildly enlarged and hypokinetic Consider either acute diastolic and/or right sided CHF. Pulm edema consistent with LV dysfunction at least LE venous doppler negative for DVT Normally on: Bumex 2mg AM/1mg PM and Spironolactone 12.5 mg daily Given bumetanide 2 mg IVP in ED, additional 1 mg IVP that evening Resume scheduled IV Bumex Daily weights/Monitor I&Os/Trend renal function Continue home BiPAP at night and have respiratory adjust settings Add Empagliflozin. (2) Paroxysmal A-fib: Code(s): I48.0 - Paroxysmal atrial fibrillation Status: Acute Assessment and Plan: Patient with known pAFib. EKG showing AFib RVR (rate 105), PVC, LAD and pattern consistent with pulmonary disease but no change Given IV metoprolol in ED for elevated heart rate Continue home Metoprolol 12.5 mg q.12 for rate control Continue home Eliquis 5 mg q.12 for stroke prophylaxis HR well controlled. Consider uncontrolled HR causing her CHF exacerbation Monitor on tele today. Check TSH (3) HTN (hypertension): Code(s): I10 - Essential (primary) hypertension Status: Acute Assessment and Plan: Patient's blood pressure was reviewed on 10/23 Blood pressure remains well controlled. Will continue to monitor (4) Type 2 diabetes mellitus without complications: Code(s): E11.9 - Type 2 diabetes mellitus without complications Status: Acute Assessment and Plan: A1c 5.7. The patient's blood glucose was reviewed on 10/23 Glucose remains well controlled. Continue AccuCheks covering with sliding scale. Hypoglycemia protocol available as needed. Continue to monitor Plan Diet: Heart healthy DVT Prophylaxis: home Eliquis Code Status: Full Code Disp: PT/OT. Back to [place] at discharge Subjective Date/time seen: 10/24/23 12:49 Interval history: 48 y/o F with CHF, ZULEIKA, HTN, hypothyroidism, IBS, lymphedema of BLE, depression, obesity, psoriasis, diabetes, and paroxysmal AFib here with SOB and fluid retention Patient states the BiPAP presure was too much last night causing SOB and CP. She wore O2 overnight but still slept poorly. SHe denies any furthre chest pain. Had a headache this morning but not uncommon for her. No n/v. Legs feel less tight today. Eating okay. Exam Narrative: AF 98.1 113/58 98 22 98% ra Gen - NARD Neck - scarred midline trach site with dried eschar and no drainage noted on dressing Chest - bibasilar rhonchi with expiratory wheezes. nml RR CV - irregularly irregular. Tele showing AFib with controlled rate Abd - Soft, obese, NT Ext - massive lymphedema Psych - Nml mood and affect Skin - Warm and dry Objective Data Vital Signs Vital Signs: Vital Signs - 24 hr 10/23/23 13:38 10/23/23 16:14 10/23/23 16:23 Temperature Pulse Rate 97 109 H 115 H Respiratory Rate 19 20 Blood Pressure 135/56 L 132/56 L Pulse Oximetry 96 97 Oxygen Delivery Oxygen Flow Rate 10/23/23 16:23 10/23/23 13:28 10/23/23 13:31 Temperature Pulse Rate 115 H 98 101 H Respiratory Rate 17 18 Blood Pressure 135/60 135/56 L Pulse Oximetry 100 99 Oxygen Delivery Oxygen Flow Rate 10/23/23 14:01 10/23/23 15:00 10/23/23 16:31 Temperature Pulse Rate 101 H 92 95 Respiratory Rate 16 16 16 Blood Pressure 147/75 H 137/65 127/65 Pulse Oximetry 97 95 97 Oxygen Delivery Oxygen Flow Rate 10/23/23 18:00 10/23/23 18:31 10/23/23 19:01 Temperature
[2023-10-24] MEDS: FERROUS SULFATE 325 MG TABLET DR PO (12:50)
[2023-10-24] MEDS: MULTIVITAMINS THERAPEUTIC TAB (*BKC) 1 TABLET PO (12:50)
--- NOTE | 2023-10-24 13:06 | IVDEFINITY ---
Prior to administration of IV Definity the patient was educated on the risks and benefits of the imaging enhancing agent including potential adverse side effects. The patient verbalized understanding. Allergies were verified. No exclusion criteria were identified and at least one of the following inclusion criteria were met: 1) physician request, 2) patient technically difficult to image (per the [place] [employer] guidelines of two or more segments not discernable within the apical view), or 3) questionable left ventricular function. ?
--- NOTE | 2023-10-24 14:26 | PC.NURSE ---
Call made to [facility] to find Bipap settings. On hold for 9 minutes, phone disconnected. Called them back. ten and a half minutes on hold they asked to call this nurse back.
[2023-10-24 17:10] LABS: Glucose Point of Care 133 mg/dl (65-105)
[2023-10-24 20:30] LABS: Glucose Point of Care 151 mg/dl (65-105)
[2023-10-24] MEDS: SENNA/DOCUSATE SODIUM TABLET 1 TAB PO (20:40)
[2023-10-24] MEDS: QUEtiapine FUMARATE 100 MG TABLET 200 MG PO (20:41)
[2023-10-25] VITALS (10 sets, daily range): BP systolic 100–128; BP diastolic 48–74; PULSE 71–101; RESP 16–22; TEMP 36.4–37.2; O2SAT 94–99
[2023-10-25 06:01] LABS: Basophils Percent Auto 0.8 % (0.2-1.2); Eosinophils Absolute Auto 0.1 K/mm3 (0-0.3); Eosinophils Percent Auto 2.6 % (0-4.4); Hematocrit 30.1 % (37.0-47.0); Hemoglobin 8.9 g/dL (12.0-15.0); Lymphocytes Absolute Auto 1.36 K/mm3 (0.9-3.2); Lymphocytes Percent Auto 27.4 % (18.3-44.2); Mean Corpuscular HGB Conc 29.6 g/dl (32-36); Mean Corpuscular Hemoglobin 26.4 pg (26-34); Mean Corpuscular Volume 89.3 fl (80-100); Mean Platelet Volume 9.8 fl (7.4-10.4); Monocytes Absolute Auto 0.4 K/mm3 (0.1-0.6); Neutrophils Percent Auto 61.2 % (45.5-73.1); Platelet Count Result 184 k/mm3 (150-375); Red Blood Count 3.37 M/mm3 (4.2-5.4); Red Cell Distribution Width 19.2 % (11.5-14.5)
[2023-10-25 06:13] LABS: Alanine Aminotransferase 30 U/L (6-35); Albumin Level 3.1 g/dL (3.5-5.1); Alkaline Phosphatase 125 U/L (38-126); Anion Gap 0 mmol/L (8-16); Aspartate Amino Transferase 48 U/L (14-36); Bilirubin,Total 0.6 mg/dL (0.2-1.3); Blood Urea Nitrogen 28 mg/dL (7-17); Calcium 8.7 mg/dL (8.4-10.2); Carbon Dioxide 37 mmol/L (22-30); Chloride 102 mmol/L (98-107); Estimated CRCL calculation 89 ml/min; Estimated Glomerular Filt Rate 53; Glucose 113 mg/dL (65-110); Potassium 3.7 mmol/L (3.4-5.0); Sodium 139 mmol/L (137-145)
[2023-10-25 06:41] LABS: Anisocytosis 1+; Hypochromasia 1+; Platelet Estimate Adequate (Adequate); Schistocytes None Seen
[2023-10-25] MEDS: LEVOTHYROXINE SODIUM 75 MCG TABLET PO (06:46)
[2023-10-25 08:29] LABS: Glucose Point of Care 118 mg/dl (65-105)
[2023-10-25] MEDS: busPIRone HCL 5 MG TABLET 15 MG PO ×3 (09:05→16:40)
[2023-10-25] MEDS: METOCLOPRAMIDE HCL 10 MG TABLET PO ×3 (09:05→16:40)
[2023-10-25] MEDS: POTASSIUM CHLORIDE 20 MEQ ER TABLET 40 MEQ PO ×2 (09:05→16:40)
[2023-10-25] MEDS: SPIRONOLACTONE 12.5 MG TABLET PO (09:05)
[2023-10-25] MEDS: lamoTRIgine 100 MG TABLET PO (09:05)
[2023-10-25] MEDS: SUCRALFATE 1 GM TABLET PO (09:05)
[2023-10-25] MEDS: EMPAGLIFLOZIN 10 MG TABLET PO (09:05)
[2023-10-25] MEDS: PANTOPRAZOLE 40 MG TABLET PO ×2 (09:05→20:06)
[2023-10-25] MEDS: PARoxetine 10 MG TABLET PO (09:05)
[2023-10-25] MEDS: QUEtiapine FUMARATE 100 MG TABLET PO ×2 (09:05→16:41)
[2023-10-25] MEDS: BUMETANIDE INJ 1 MG/4 ML VIAL 2 MG IV PUSH ×2 (09:05→16:41)
[2023-10-25] MEDS: METOPROLOL TARTRATE 12.5 MG TABLET PO ×2 (09:06→20:06)
[2023-10-25] MEDS: APIXABAN 5 MG TABLET PO ×2 (09:06→20:06)
--- NOTE | 2023-10-25 10:40 | PC.NURSE ---
Pt still refusing to apply luis wraps. Education provided. No call back received yet for bipap settings.
[2023-10-25] MEDS: MULTIVITAMINS THERAPEUTIC TAB (*BKC) 1 TABLET PO (12:12)
[2023-10-25] MEDS: FERROUS SULFATE 325 MG TABLET DR PO (12:12)
[2023-10-25 12:27] LABS: Glucose Point of Care 147 mg/dl (65-105)
--- NOTE | 2023-10-25 14:20 | PCPTNOTE ---
attempted PT eval, pt refused stating she was too tired to participate, will attempt at a later time
--- NOTE | 2023-10-25 15:56 | PM.IMPN ---
Progress Note: A&P Assessment and Plan (1) Acute exacerbation of CHF (congestive heart failure): Qualifiers: Heart failure type: unspecified Qualified Code(s): I50.9 - Heart failure, unspecified Code(s): I50.9 - Heart failure, unspecified Status: Acute Assessment and Plan: Patient presents with SOB and fluid retention. BNP 1060. Troponin negative x 2. CXR showing mild pulmonary edema. Most recent echo (03/2023): EF of 60-65%, normal diastolic function; RV not well visualized but mildly enlarged and hypokinetic Consider either acute diastolic and/or right sided CHF. Pulm edema consistent with LV dysfunction at least LE venous doppler negative for DVT Normally on: Bumex 2mg AM/1mg PM and Spironolactone 12.5 mg daily Given bumetanide 2 mg IVP in ED, additional 1 mg IVP that evening Resume scheduled IV Bumex I/O not accurate. Down about 5-6#. Daily weights/Monitor I&Os/Trend renal function Continue Empagliflozin. (2) Paroxysmal A-fib: Code(s): I48.0 - Paroxysmal atrial fibrillation Status: Acute Assessment and Plan: Patient with known pAFib. EKG showing AFib RVR (rate 105), PVC, LAD and pattern consistent with pulmonary disease (no change) Given IV metoprolol in ED for elevated heart rate TSH normal. Consider uncontrolled HR causing her CHF exacerbation but HR well controlled. Continue home Metoprolol 12.5 mg q.12 for rate control Continue home Eliquis 5 mg q.12 for stroke prophylaxis Monitor on tele today. (3) HTN (hypertension): Code(s): I10 - Essential (primary) hypertension Status: Acute Assessment and Plan: Patient's blood pressure was reviewed on 10/24 Blood pressure remains well controlled. Will continue to monitor (4) Type 2 diabetes mellitus without complications: Code(s): E11.9 - Type 2 diabetes mellitus without complications Status: Acute Assessment and Plan: A1c 5.7. The patient's blood glucose was reviewed on 10/24 Glucose remains well controlled. Continue AccuCheks covering with sliding scale. Hypoglycemia protocol available as needed. Continue to monitor Plan DVT Prophylaxis: home Eliquis Code Status: Full Code Disp: PT/OT. Back to [place] at discharge Subjective Date/time seen: 10/25/23 15:56 Interval history: 48 y/o F with CHF, ZULEIKA, HTN, hypothyroidism, IBS, lymphedema of BLE, depression, obesity, psoriasis, diabetes, and paroxysmal AFib here with SOB and fluid retention Feels tired. Legs feel less tight. SOB better. Cough worse but dry. Eating okay. Exam Narrative: AF 99.0 128/74 86 16 96% ra Gen - NARD Neck - scarred midline trach site; dressing clean and dry Chest - bibasilar crackles. nml RR CV - irregularly irregular. Tele showing AFib with controlled rate Abd - Soft, obese, NT Ext - massive lymphedema Psych - Nml mood and affect Skin - Warm and dry Objective Data Vital Signs Vital Signs: Vital Signs - 24 hr 10/24/23 16:40 10/24/23 16:00 10/24/23 20:41 Temperature 97.7 F Pulse Rate 108 H 86 65 Respiratory Rate 22 H Blood Pressure 110/63 Pulse Oximetry 94 Oxygen Delivery 10/24/23 20:42 10/24/23 20:00 10/24/23 22:59 Temperature 97.8 F Pulse Rate 65 94 Respiratory Rate 20 Blood Pressure 121/51 L Pulse Oximetry 95 Oxygen Delivery BiPAP 10/25/23 00:00 10/25/23 04:00 10/25/23 06:00 Temperature 99 F Pulse Rate 71 76 84 Respiratory Rate 16 Blood Pressure 128/74 Pulse Oximetry 96 Oxygen Delivery 10/25/23 08:00 10/25/23 09:06 10/25/23 08:00 Temperature Pulse Rate 78 86 Respiratory Rate Blood Pressure Pulse Oximetry Oxygen Delivery Room Air 10/25/23 12:00 Temperature Pulse Rate 86 Respiratory Rate Blood Pressure Pulse Oximetry Oxygen Delivery Intake/Output Intake/Output: Intake & Output 10/22/23 10/23/23 10/24/23 10/25/23 23:59 23:59 23:59 23:59 Intake Total 6748
[2023-10-25 16:51] LABS: Glucose Point of Care 92 mg/dl (65-105)
[2023-10-25] MEDS: QUEtiapine FUMARATE 100 MG TABLET 200 MG PO (20:06)
[2023-10-25] MEDS: SENNA/DOCUSATE SODIUM TABLET 1 TAB PO (20:06)
[2023-10-25] MEDS: TOLNAFTATE 1% POWDER 45 GM BTL 1 APPLIC TOPICAL (20:06)
[2023-10-25 21:27] LABS: Glucose Point of Care 146 mg/dl (65-105)
[2023-10-26] VITALS (18 sets, daily range): BP systolic 106–127; BP diastolic 53–58; PULSE 64–94; RESP 14–20; TEMP 36.2–36.6; O2SAT 93–100
[2023-10-26] MEDS: BENZONATATE 100 MG CAPSULE PO ×2 (05:49→21:45)
[2023-10-26] MEDS: LEVOTHYROXINE SODIUM 75 MCG TABLET PO (05:49)
[2023-10-26 06:04] LABS: Hematocrit 30.1 % (37.0-47.0); Hemoglobin 8.8 g/dL (12.0-15.0); Mean Corpuscular HGB Conc 29.2 g/dl (32-36); Mean Corpuscular Hemoglobin 26.3 pg (26-34); Mean Corpuscular Volume 89.9 fl (80-100); Mean Platelet Volume 10.1 fl (7.4-10.4); Platelet Count Result 206 k/mm3 (150-375); Red Blood Count 3.35 M/mm3 (4.2-5.4); Red Cell Distribution Width 18.8 % (11.5-14.5); White Blood Count 5.5 K/mm3 (4.5-10.0)
[2023-10-26 06:19] LABS: Anion Gap 0 mmol/L (8-16); Blood Urea Nitrogen 27 mg/dL (7-17); Calcium 8.6 mg/dL (8.4-10.2); Carbon Dioxide 37 mmol/L (22-30); Chloride 101 mmol/L (98-107); Estimated CRCL calculation 87 ml/min; Estimated Glomerular Filt Rate 53; Glucose 113 mg/dL (65-110); Magnesium 2.4 mg/dL (1.6-2.3); Phosphorus 4.5 mg/dL (2.5-4.5); Potassium 3.8 mmol/L (3.4-5.0); Sodium 138 mmol/L (137-145)
[2023-10-26 08:39] LABS: Glucose Point of Care 104 mg/dl (65-105)
[2023-10-26] MEDS: METOPROLOL TARTRATE 12.5 MG TABLET PO ×2 (09:25→21:46)
[2023-10-26] MEDS: lamoTRIgine 100 MG TABLET PO (09:25)
[2023-10-26] MEDS: SUCRALFATE 1 GM TABLET PO (09:26)
[2023-10-26] MEDS: SPIRONOLACTONE 12.5 MG TABLET PO (09:26)
[2023-10-26] MEDS: APIXABAN 5 MG TABLET PO ×2 (09:26→21:46)
[2023-10-26] MEDS: busPIRone HCL 5 MG TABLET 15 MG PO ×3 (09:26→18:25)
[2023-10-26] MEDS: POTASSIUM CHLORIDE 20 MEQ ER TABLET 40 MEQ PO ×2 (09:26→17:36)
[2023-10-26] MEDS: PARoxetine 10 MG TABLET PO (09:26)
[2023-10-26] MEDS: PANTOPRAZOLE 40 MG TABLET PO ×2 (09:26→21:45)
[2023-10-26] MEDS: EMPAGLIFLOZIN 10 MG TABLET PO (09:26)
[2023-10-26] MEDS: METOCLOPRAMIDE HCL 10 MG TABLET PO ×3 (09:26→17:36)
[2023-10-26] MEDS: BUMETANIDE INJ 1 MG/4 ML VIAL 2 MG IV PUSH ×2 (09:26→18:25)
[2023-10-26] MEDS: TOLNAFTATE 1% POWDER 45 GM BTL 1 APPLIC TOPICAL ×2 (09:30→21:47)
[2023-10-26] MEDS: QUEtiapine FUMARATE 100 MG TABLET PO ×2 (09:31→15:01)
--- NOTE | 2023-10-26 11:15 | PM.IMPN ---
Progress Note: A&P Assessment and Plan (1) Acute exacerbation of CHF (congestive heart failure): Qualifiers: Heart failure type: unspecified Qualified Code(s): I50.9 - Heart failure, unspecified <Yoselyn Guo, Student - Last Filed: 10/26/23 14:42> Code(s): I50.9 - Heart failure, unspecified <Yoselyn Guo, Student - Last Filed: 10/26/23 14:42> Status: Acute <Yoselyn Guo Student - Last Filed: 10/26/23 14:42> Assessment and Plan: Patient presents with SOB and fluid retention. BNP 1060. Troponin negative x 2. CXR showing mild pulmonary edema. Most recent echo (03/2023): EF of 60-65%, normal diastolic function; RV not well visualized but mildly enlarged and hypokinetic Consider either acute diastolic and/or right sided CHF. Pulm edema consistent with LV dysfunction at least LE venous doppler negative for DVT Normally on: Bumex 2mg AM/1mg PM and Spironolactone 12.5 mg daily Given bumetanide 2 mg IVP in ED, additional 1 mg IVP that evening Resume scheduled IV Bumex Continue home spironolactone Continue Empagliflozin Systolic blood pressures in the 100s today (10/25); will continue to monitor and adjust medication as needed I/O not accurate. Down about 5-6# from 10/23-10/24 Daily weights/Monitor I&Os/Trend renal function PT/OT <Yoselyn Guo, Student - Last Filed: 10/26/23 14:42> Patient presents with SOB and fluid retention. BNP 1060. Troponin negative x 2. CXR showing mild pulmonary edema. Most recent echo (03/2023): EF of 60-65%, normal diastolic function; RV not well visualized but mildly enlarged and hypokinetic Patient with acute diastolic CHF with right sided CHF. LE venous doppler negative for DVT Normally on: Bumex 2mg AM/1mg PM and Spironolactone 12.5 mg daily Given bumetanide 2 mg IVP in ED, additional 1 mg IVP that evening Resume scheduled IV Bumex Continue home spironolactone and Empagliflozin Systolic blood pressures in the 100s today (10/25); will continue to monitor and adjust medication as needed I/O not accurate but UOP 4.8L yesterday and 2.2 today. Down about 5-6# from 10/23-10/24 Daily weights/Monitor I&Os/Trend renal function Probably change to oral diuretics tomorrow PT/OT <Andre Luque MD - Last Filed: 10/26/23 18:03> (2) Paroxysmal A-fib: Code(s): I48.0 - Paroxysmal atrial fibrillation <Yoselyn Guo Student - Last Filed: 10/26/23 14:42> Status: Acute <Yoselyn Guo Student - Last Filed: 10/26/23 14:42> Assessment and Plan: Patient with known pAFib. EKG showing AFib RVR (rate 105), PVC, LAD and pattern consistent with pulmonary disease (no change) Given IV metoprolol in ED for elevated heart rate TSH normal. Consider uncontrolled HR causing her CHF exacerbation but HR well controlled. Continue home Metoprolol 12.5 mg q.12 for rate control Continue home Eliquis 5 mg q.12 for stroke prophylaxis Monitor on tele <Yoselyn Guo Student - Last Filed: 10/26/23 14:42> Patient with known pAFib. EKG showing AFib RVR (rate 105), PVC, LAD and pattern consistent with pulmonary disease (no change) Given IV metoprolol in ED for elevated heart rate TSH normal. Consider uncontrolled HR causing her CHF exacerbation but HR well controlled by tele. Continue home Metoprolol for rate control Continue home Eliquis for stroke prophylaxis Monitor on tele <Andre Luque MD - Last Filed: 10/26/23 18:03> (3) HTN (hypertension): Code(s): I10 - Essential (primary) hypertension <Yoselyn Guo Student - Last Filed: 10/26/23 14:42> Status: Acute <Yoselyn Guo Student - Last Filed: 10/26/23 14:42> Assessment and Plan: Patient's blood pressure was reviewed on 10/25 Blood pressure remains well controlled. Will continue to monitor <Yoselyn E. Bobrowski, Student - Last Filed: 10/26/23 14:42> Patient's blood pressure was reviewed on 3
[2023-10-26 13:05] LABS: Glucose Point of Care 135 mg/dl (65-105)
[2023-10-26] MEDS: LEVALBUTEROL NEB 1.25 MG/3 ML INHALATION ×2 (14:18→20:52)
[2023-10-26] MEDS: FERROUS SULFATE 325 MG TABLET DR PO (15:01)
[2023-10-26] MEDS: MULTIVITAMINS THERAPEUTIC TAB (*BKC) 1 TABLET PO (15:01)
[2023-10-26 17:38] LABS: Glucose Point of Care 109 mg/dl (65-105)
[2023-10-26] MEDS: QUEtiapine FUMARATE 100 MG TABLET 200 MG PO (21:45)
[2023-10-26 21:52] LABS: Glucose Point of Care 147 mg/dl (65-105)
[2023-10-27] VITALS (20 sets, daily range): BP systolic 97–110; BP diastolic 40–58; PULSE 69–98; RESP 14–20; TEMP 36.6; O2SAT 94–98
[2023-10-27 05:08] LABS: Hematocrit 29.3 % (37.0-47.0); Hemoglobin 8.8 g/dL (12.0-15.0); Mean Corpuscular Hemoglobin 26.7 pg (26-34); Mean Corpuscular Volume 88.8 fl (80-100); Mean Platelet Volume 9.6 fl (7.4-10.4); Platelet Count Result 158 k/mm3 (150-375); Red Cell Distribution Width 18.9 % (11.5-14.5); White Blood Count 5.1 K/mm3 (4.5-10.0)
[2023-10-27] MEDS: LEVOTHYROXINE SODIUM 75 MCG TABLET PO (05:31)
[2023-10-27 07:55] LABS: Anion Gap 4 mmol/L (8-16); Blood Urea Nitrogen 26 mg/dL (7-17); Calcium 8.5 mg/dL (8.4-10.2); Carbon Dioxide 34 mmol/L (22-30); Chloride 100 mmol/L (98-107); Estimated CRCL calculation 80 ml/min; Estimated Glomerular Filt Rate 48; Glucose 105 mg/dL (65-110); Potassium 3.6 mmol/L (3.4-5.0); Sodium 138 mmol/L (137-145)
[2023-10-27] MEDS: LEVALBUTEROL NEB 1.25 MG/3 ML INHALATION ×3 (08:11→20:45)
[2023-10-27 08:27] LABS: Glucose Point of Care 97 mg/dl (65-105)
[2023-10-27] MEDS: busPIRone HCL 5 MG TABLET 15 MG PO ×3 (10:55→17:17)
[2023-10-27] MEDS: SUCRALFATE 1 GM TABLET PO (10:55)
[2023-10-27] MEDS: PANTOPRAZOLE 40 MG TABLET PO ×2 (10:55→20:05)
[2023-10-27] MEDS: APIXABAN 5 MG TABLET PO ×2 (10:56→20:05)
[2023-10-27] MEDS: QUEtiapine FUMARATE 100 MG TABLET PO ×2 (10:56→15:57)
[2023-10-27] MEDS: lamoTRIgine 100 MG TABLET PO (10:56)
[2023-10-27] MEDS: METOCLOPRAMIDE HCL 10 MG TABLET PO ×3 (10:56→17:17)
[2023-10-27] MEDS: EMPAGLIFLOZIN 10 MG TABLET PO (10:57)
[2023-10-27] MEDS: POTASSIUM CHLORIDE 20 MEQ ER TABLET 40 MEQ PO (10:57)
[2023-10-27] MEDS: PARoxetine 10 MG TABLET PO (10:57)
[2023-10-27] MEDS: METOPROLOL TARTRATE 12.5 MG TABLET PO ×2 (11:33→20:05)
[2023-10-27] MEDS: TOLNAFTATE 1% POWDER 45 GM BTL 1 APPLIC TOPICAL ×2 (11:33→20:08)
[2023-10-27] MEDS: FERROUS SULFATE 325 MG TABLET DR PO (11:36)
[2023-10-27] MEDS: guaiFENesin 12 HR 600 MG TABCR PO ×2 (11:36→20:05)
[2023-10-27] MEDS: MULTIVITAMINS THERAPEUTIC TAB (*BKC) 1 TABLET PO (11:36)
--- NOTE | 2023-10-27 11:43 | PM.IMPN ---
Progress Note: A&P Assessment and Plan (1) Acute exacerbation of CHF (congestive heart failure): Qualifiers: Heart failure type: unspecified Qualified Code(s): I50.9 - Heart failure, unspecified Code(s): I50.9 - Heart failure, unspecified Status: Acute Assessment and Plan: Patient presents with SOB and fluid retention. BNP 1060. Troponin negative x 2. CXR showing mild pulmonary edema. Most recent echo (03/2023): EF of 60-65%, normal diastolic function; RV not well visualized but mildly enlarged and hypokinetic Consider either acute diastolic and/or right sided CHF. Pulm edema consistent with LV dysfunction at least LE venous doppler negative for DVT Normally on: Bumex 2mg AM/1mg PM and Spironolactone 12.5 mg daily Given bumetanide 2 mg IVP in ED, additional 1 mg IVP that evening Resume scheduled IV Bumex Continue home spironolactone Continue Empagliflozin Blood pressure still soft; discontinued IV Bumex yesterday (10/25) Will likely switch to PO diuretic today (10/26) I/O not accurate. Down about 5-6# from 10/23-10/24 Daily weights/Monitor I&Os/Trend renal function PT/OT (2) Paroxysmal A-fib: Code(s): I48.0 - Paroxysmal atrial fibrillation Status: Acute Assessment and Plan: Patient with known pAFib. EKG showing AFib RVR (rate 105), PVC, LAD and pattern consistent with pulmonary disease (no change) Given IV metoprolol in ED for elevated heart rate TSH normal. Consider uncontrolled HR causing her CHF exacerbation but HR well controlled. Continue home Metoprolol for rate control Continue home Eliquis for stroke prophylaxis Monitor on tele (3) HTN (hypertension): Code(s): I10 - Essential (primary) hypertension Status: Acute Assessment and Plan: Patient's blood pressure was reviewed on 10/26 Blood pressure remains well controlled. Will continue to monitor (4) Type 2 diabetes mellitus without complications: Code(s): E11.9 - Type 2 diabetes mellitus without complications Status: Acute Assessment and Plan: A1c 5.7. The patient's blood glucose was reviewed on 10/26 Glucose remains well controlled. Continue AccuCheks covering with sliding scale. Hypoglycemia protocol available as needed. Continue to monitor Plan Started Xopenex yesterday. Patient still having wheezing and dry cough. Wheezing may be tracheal. Will continue with scheduled breathing treatments and Tessalon perles for symptoms. DVT Prophylaxis: home Eliquis Code Status: Full Code Disp: PT/OT. Back to [place] at discharge Subjective Date/time seen: 10/27/23 11:43 Interval history: 48 y/o female with PMHx of CHF, chronic respiratory failure with nocturnal BiPAP use, HTN, A-fib, and hypothyroidism here for SOB and fluid retention. Patient resting comfortably in her chair this morning. Endorses wheezing with mild shortness of breath. She also reports a dry cough. However, states she slept well overnight and is overall feeling better day. Denies chest pain, abdominal pain, nausea, vomiting, diarrhea, dysuria. Eating and drinking well. Review of Systems Review of Systems: All systems reviewed & are unremarkable except as noted in HPI and below Exam Narrative: AF 110/40 82 20 95% ra Gen - NARD Neck - scarred midline trach site; dressing clean and dry Chest - bibasilar crackles. Inspiratory and expiratory wheezing throughout. nml RR CV - irregularly irregular. Tele showing AFib with controlled rate Abd - Soft, obese, NT Ext - massive lymphedema bilaterally Psych - Nml mood and affect Skin - Warm and dry Objective Data Vital Signs Vital Signs: Vital Signs - 24 hr 10/26/23 12:00 10/26/23 12:21 10/26/23 14:18 Temperature 97.2 F L Pulse Rate 75 86 74 Respiratory Rate 17 20 Blood Pressure 106/53 L Pulse Oximetry 100 Oxygen Delivery 10/26/23 14:26 10/26/23 16:01 10/26/23 18:24 Temperature Pulse Rate 79 94 Respiratory
[2023-10-27 11:47] LABS: Glucose Point of Care 157 mg/dl (65-105)
[2023-10-27 17:00] LABS: Glucose Point of Care 107 mg/dl (65-105)
[2023-10-27] MEDS: BUMETANIDE 1 MG TABLET PO (18:11)
[2023-10-27] MEDS: QUEtiapine FUMARATE 100 MG TABLET 200 MG PO (20:05)
[2023-10-27 23:23] LABS: Glucose Point of Care 152 mg/dl (65-105)
[2023-10-28] VITALS (16 sets, daily range): BP systolic 100–125; BP diastolic 48–57; PULSE 69–88; RESP 18–20; TEMP 36.4–36.6; O2SAT 94–99
[2023-10-28] MEDS: LEVOTHYROXINE SODIUM 75 MCG TABLET PO (05:54)
[2023-10-28 05:57] LABS: Hematocrit 29.1 % (37.0-47.0); Hemoglobin 8.8 g/dL (12.0-15.0); Mean Corpuscular HGB Conc 30.2 g/dl (32-36); Mean Corpuscular Hemoglobin 27.2 pg (26-34); Mean Corpuscular Volume 89.8 fl (80-100); Mean Platelet Volume 9.8 fl (7.4-10.4); Platelet Count Result 156 k/mm3 (150-375); Red Blood Count 3.24 M/mm3 (4.2-5.4)
[2023-10-28 06:06] LABS: Anion Gap 2 mmol/L (8-16); Blood Urea Nitrogen 23 mg/dL (7-17); Calcium 8.5 mg/dL (8.4-10.2); Carbon Dioxide 35 mmol/L (22-30); Chloride 101 mmol/L (98-107); Estimated CRCL calculation 80 ml/min; Estimated Glomerular Filt Rate 48; Glucose 104 mg/dL (65-110); Potassium 3.6 mmol/L (3.4-5.0); Sodium 138 mmol/L (137-145)
[2023-10-28 07:57] LABS: Glucose Point of Care 95 mg/dl (65-105)
[2023-10-28] MEDS: LEVALBUTEROL NEB 1.25 MG/3 ML INHALATION ×2 (08:09→13:21)
[2023-10-28] MEDS: POTASSIUM CHLORIDE 20 MEQ ER TABLET 40 MEQ PO ×2 (08:49→17:38)
[2023-10-28] MEDS: QUEtiapine FUMARATE 100 MG TABLET PO ×2 (08:49→15:27)
[2023-10-28] MEDS: busPIRone HCL 5 MG TABLET 15 MG PO ×3 (08:50→17:38)
[2023-10-28] MEDS: PANTOPRAZOLE 40 MG TABLET PO (08:50)
[2023-10-28] MEDS: METOCLOPRAMIDE HCL 10 MG TABLET PO ×3 (08:50→17:38)
[2023-10-28] MEDS: guaiFENesin 12 HR 600 MG TABCR PO (08:50)
[2023-10-28] MEDS: PARoxetine 10 MG TABLET PO (08:50)
[2023-10-28] MEDS: SPIRONOLACTONE 12.5 MG TABLET PO (08:51)
[2023-10-28] MEDS: BUMETANIDE 1 MG TABLET 2 MG PO (08:51)
[2023-10-28] MEDS: lamoTRIgine 100 MG TABLET PO (08:51)
[2023-10-28] MEDS: SUCRALFATE 1 GM TABLET PO (08:51)
[2023-10-28] MEDS: APIXABAN 5 MG TABLET PO (08:51)
[2023-10-28] MEDS: METOPROLOL TARTRATE 12.5 MG TABLET PO (08:52)
[2023-10-28] MEDS: EMPAGLIFLOZIN 10 MG TABLET PO (08:52)
[2023-10-28] MEDS: ACETAMINOPHEN 325 MG TABLET 650 MG PO (08:52)
[2023-10-28] MEDS: TOLNAFTATE 1% POWDER 45 GM BTL 1 APPLIC TOPICAL (08:54)
--- NOTE | 2023-10-28 10:43 | PM.IMPN ---
Progress Note: A&P Assessment and Plan (1) Acute exacerbation of CHF (congestive heart failure): Qualifiers: Heart failure type: unspecified Qualified Code(s): I50.9 - Heart failure, unspecified <Yoselyn Guo, Student - Last Filed: 10/28/23 14:40> Code(s): I50.9 - Heart failure, unspecified <Yoselyn Guo, Student - Last Filed: 10/28/23 14:40> Status: Acute <Yoselyn Guo Student - Last Filed: 10/28/23 14:40> Assessment and Plan: Patient presents with SOB and fluid retention. BNP 1060. Troponin negative x 2. CXR showing mild pulmonary edema. Most recent echo (03/2023): EF of 60-65%, normal diastolic function; RV not well visualized but mildly enlarged and hypokinetic Consider either acute diastolic and/or right sided CHF. Pulm edema consistent with LV dysfunction at least LE venous doppler negative for DVT Normally on: Bumex 2mg AM/1mg PM and Spironolactone 12.5 mg daily Given bumetanide 2 mg IVP in ED, additional 1 mg IVP that evening; then resumed scheduled IV Bumex I/O not accurate. Down about 5-6# from 10/23-10/24 Blood pressure still soft; discontinued IV Bumex yesterday (10/25) Switched to home PO bumex (10/26) Continue home spironolactone Continue Empagliflozin Home with fluid restriction Daily weights/Monitor I&Os/Trend renal function PT/OT <Yoselyn Guo, Student - Last Filed: 10/28/23 14:40> (2) Paroxysmal A-fib: Code(s): I48.0 - Paroxysmal atrial fibrillation <Yosleyn Guo, Student - Last Filed: 10/28/23 14:40> Status: Acute <Yoselyn Guo, Student - Last Filed: 10/28/23 14:40> Assessment and Plan: Patient with known pAFib. EKG showing AFib RVR (rate 105), PVC, LAD and pattern consistent with pulmonary disease (no change) Given IV metoprolol in ED for elevated heart rate TSH normal. Consider uncontrolled HR causing her CHF exacerbation but HR well controlled. Continue home Metoprolol for rate control Continue home Eliquis for stroke prophylaxis Monitor on tele <Yoselyn Eden Sari Student - Last Filed: 10/28/23 14:40> (3) HTN (hypertension): Code(s): I10 - Essential (primary) hypertension <Yoselyn Eden Sari, Student - Last Filed: 10/28/23 14:40> Status: Acute <Yoselyn Harmon Sari Student - Last Filed: 10/28/23 14:40> Assessment and Plan: Patient's blood pressure was reviewed on 10/27 Blood pressure remains well controlled. Will continue to monitor <Yoselyn AshleyTc Guo, - Last Filed: 10/28/23 14:40> (4) Type 2 diabetes mellitus without complications: Code(s): E11.9 - Type 2 diabetes mellitus without complications <Yoselyn Guo, Student - Last Filed: 10/28/23 14:40> Status: Acute <Yoselyn AshleyTc Guo, - Last Filed: 10/28/23 14:40> Assessment and Plan: A1c 5.7. The patient's blood glucose was reviewed on 10/27 Glucose remains well controlled. Continue AccuCheks covering with sliding scale. Hypoglycemia protocol available as needed. Continue to monitor <Yoselyn Harmon Sari - Last Filed: 10/28/23 14:40> Assessment and Plan: Continue Xopenex, Mucinex, and tessalon perles for wheezing and dry cough symptoms. Patient still having these symptoms but says they have improved. Wheezing may be tracheal. DVT Prophylaxis: home Eliquis Code Status: Full Code Disp: PT/OT. Back to University at discharge <Yoselyn Guo Student - Last Filed: 10/28/23 14:40> Subjective Date/time seen: 10/28/23 10:43 <Yoselyn Guo, Student - Last Filed: 10/28/23 14:40> Interval history: 48 y/o female with PMHx of CHF, chronic respiratory failure with nocturnal BiPAP use, HTN, A-fib, and hypothyroidism here for SOB and fluid retention. Patient resting comfortably in her chair this morning. Continues to endorse wheezing with mild shortness of breath but states this has improv
[2023-10-28 12:06] LABS: Glucose Point of Care 112 mg/dl (65-105)
[2023-10-28] MEDS: FERROUS SULFATE 325 MG TABLET DR PO (12:20)
[2023-10-28] MEDS: MULTIVITAMINS THERAPEUTIC TAB (*BKC) 1 TABLET PO (12:20)
--- NOTE | 2023-10-28 14:04 | PCRCNOTE ---
Stat racemic epi neb order DC'd. RT notified Dr. Luque that patient already received Xopenex neb prior to STAT racemic epi order. Dr. Luque stated to DC Racemic epi neb order. RN aware.
--- NOTE | 2023-10-28 14:06 | PM.DS ---
DS: Admitting Diagnosis Discharge Date 10/28/23 Admitting Diagnosis Shortness of breath DS: Discharge Diagnosis Discharge Diagnosis (1) Acute exacerbation of CHF (congestive heart failure): Qualifiers: Heart failure type: unspecified Qualified Code(s): I50.9 - Heart failure, unspecified Code(s): I50.9 - Heart failure, unspecified Status: Acute (2) Paroxysmal A-fib: Code(s): I48.0 - Paroxysmal atrial fibrillation Status: Acute (3) HTN (hypertension): Code(s): I10 - Essential (primary) hypertension Status: Acute (4) Type 2 diabetes mellitus without complications: Code(s): E11.9 - Type 2 diabetes mellitus without complications Status: Acute DS: Summary Hospital Course Reason for hospitalization: 48 y/o female with PMHx of CHF, chronic respiratory failure with nocturnal BiPAP use, HTN, A-fib, and hypothyroidism here for SOB and fluid retention.? Please see H&P for details. Hospital Course: Patient presents with SOB and fluid retention. BNP 1060. Troponin negative x 2. CXR showing mild pulmonary edema. Echo showing EF 60-65%, LVH, mild RV enlargement and Grade I diastolic dysfunction. Patient with acute diastolic and right sided CHF. LE venous doppler negative for DVT. Normally on: Bumex 2mg AM/1mg PM and Spironolactone 12.5 mg daily. She was switched to IV Bumex. We continued her spironolactone and added Empagliflozin. I/O not accurate. Down about 5-6# from 10/23-10/24. Blood pressure was soft so we held IV Bumex and resumed her oral home dose which she tolerated. Decided not to advance home dose of Bumex since felt only mild CHF and that her symptoms are more likely related to right sided failure (given the soft blod pressure) and lymphedema. Empagliflozin added which should help. Patient with known pAFib. EKG showing AFib RVR (rate 105), PVC, LAD and pattern consistent with pulmonary disease (no change). She was given IV metoprolol in ED for elevated heart rate. TSH normal. Consider uncontrolled HR causing her CHF exacerbation but HR well controlled on telemetry. Heart rate was elevated at times with exertion but felt related to deconditioning rather then uncontrolled AFib since HR improved with rest. We continue home Metoprolol for rate control and home Eliquis for stroke prophylaxis. Patient had her trach removed about 7 -8 weeks ago. She developed wheezing for the past 3 weeks. She continued to have wheezing here. She was started on Xopenex yesterday. Patient still having wheezing and dry cough. Wheezing may be related to tracheal stenosis. Racemic Epi ordered but she just had received a bronchodilator so Racemic Epi cancelled. On repeat exam after bronchodilator, her breath sounds improved. She overall did well and was able to be discharged on 10/28/23. Status at Discharge Cognitive/behavioral status at discharge: stable Time Spent with Patient Time attestation: Total time spent providing and/or coordinating discharge services: 36 minutes Time spent: Greater than 30 minutes Exam Narrative: AF 97.9 100/48 88 20 94% ra Gen - NARD Neck - scarred midline trach site; dressing clean and dry Chest - voice strong, inspiratory audible stridor (better after neb), scattered rhonchi o/w distant breath sounds. CV - irregularly irregular Abd - Soft, obese, NT Ext - massive lymphedema bilaterally Psych - Nml mood and affect Skin - Warm and dry. DS: Data Data Completed and Pending Labs on day of discharge: Labs from last 24 hours 10/28/23 10/28/23 10/28/23 12:01 07:54 05:34 WBC 5.0 RBC 3.24 L Hgb 8.8 L Hct 29.1 L MCV 89.8 MCH 27.2 MCHC 30.2 L RDW 19.0 H Plt Count 156 MPV 9.8 Sodium 138 Potassium 3.6 Chloride 101 Carbon Dioxide 35 H Anion Gap 2 L BUN 23 H Creatinine 1.20 H Estim Creat Clear Calc 80 Estimated GFR 48 L Glucose 104 POC Capillary Glucose 112 H 95 Calcium 8.5
[2023-10-28] MEDS: BENZONATATE 100 MG CAPSULE PO (15:27)
[2023-10-28] MEDS: BUMETANIDE 1 MG TABLET PO (15:27)
[2023-10-28 16:23] LABS: SARS-CoV-2 RNA PCR Negative (Negative)
--- OUTSIDE RECORDS SUMMARY | 2023-12-17 12:16 | XMS_ITS | Clinical Summary ---
Author Name Unknown Address [address] [place] [address] Phone Organization [facility] Address [address] [place] [address] Phone Care Team Providers Care Manager Account Management Name Role Phone Unavailable Unavailable Unavailable Reason for Visit and Chief Complaint GENERAL OFFICE VISIT Plan of Treatment No Plan of Treatment Recorded Assessments Includes: Assessments from this encounter No Assessments Recorded Medical Equipment - Implanted Devices Includes: Current Devices No Medical Equipment Recorded Medications Administered Includes: Administered Medications from this encounter No Administered Medications Recorded Results Includes: Results discussed during this encounter No Results Recorded For Specified Dates History of Present Illness Includes: History of Present Illness from this encounter No History of Present Illness Recorded Social History No Social History Recorded - Smoking Status Unknown Medical History Includes: Medical History addressed during this encounter No Medical History Recorded Family History Includes: Family History addressed during this encounter No Family History Recorded Review of Systems Includes: Review of Systems from this encounter No Review of Systems Recorded Mental Status Includes: Mental Status from this encounter No Mental Status Recorded Functional Status Includes: Functional Status from this encounter No Functional Status Recorded Physical Exam Includes: Physical Exam from this encounter No Physical Exam Recorded Clinical Notes Includes: Clinical Notes from this encounter No Clinical Notes Recorded
--- OUTSIDE RECORDS SUMMARY | 2023-12-17 12:16 | XMS_ITS ---
Care Plan - [facility] Created on: December 17, 2023 MAXIMILIAN ALEJANDRA : 1975 Sex: Female Author Name Unknown Address [address] [place] [address] Phone Organization [facility] Address [address] [place] [address] Phone Care Team Providers Care Lead Mason Tender Name Role Phone Unavailable Unavailable Unavailable
--- OUTSIDE RECORDS SUMMARY | 2023-12-17 12:17 | XMS_ITS | Clinical Summary ---
Author Name Unknown Address [address] [place] [address] Phone Organization [facility] Address [address] [place] [address] Phone Care Team Providers Care Resident Services Coordinator Name Role Phone Unavailable Unavailable Unavailable Reason [...] from this encounter No Physical Exam Recorded Encounters Encounter Provider Location Date Check-In Time Check- Out Time Diagnosis GENERAL OFFICE VISIT ARELY MCKEON-PSYCHIA TRY 8 8:37AM 9:31AM Clinical Notes Includes: Clinical Notes from this encounter No Clinical Notes Recorded
--- OUTSIDE RECORDS SUMMARY | 2023-12-17 12:17 | XMS_ITS | Clinical Summary ---
Author Name Unknown Address [address] [place] [address] Phone Organization [facility] Address [address] [place] [address] Phone Care Team Providers Care Systems Developer Name Role Phone Unavailable Unavailable Unavailable Reason [...]
== END 2023-10-28 18:32 | DRG 291 ==
LOC: ANHED 12:20 → ANH3MED 20:10 → ANH2MED 10-26 12:10
PROVIDERS: Emergency Medicine; Student in an Organized Health Care Education/Training Program; Admitting Provider General Practice; Emergency Provider Student in an Organized Health Care Education/Training Program; PCP Family Medicine; Visit Provider Internal Medicine
DX: I11.0 Hypertensive heart disease with heart failure (principal); I50.33 Acute on chronic diastolic (congestive) heart failure; J96.11 Chronic respiratory failure with hypoxia; Z68.44 Body mass index [BMI] 60.0-69.9, adult; J96.12 Chronic respiratory failure with hypercapnia; I48.0 Paroxysmal atrial fibrillation; E11.9 Type 2 diabetes mellitus without complications; E03.9 Hypothyroidism, unspecified; Z20.822 Contact with and (suspected) exposure to COVID-19; E66.01 Morbid (severe) obesity due to excess calories; E53.8 Deficiency of other specified B group vitamins; E55.9 Vitamin D deficiency, unspecified; L40.9 Psoriasis, unspecified; K58.0 Irritable bowel syndrome with diarrhea; G47.33 Obstructive sleep apnea (adult) (pediatric); F41.9 Anxiety disorder, unspecified; Z90.49 Acquired absence of other specified parts of digestive tract; Z79.01 Long term (current) use of 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; Z11.52 Encounter for screening for COVID-19
CPT/HCPCS: 36415; 71046; 80048; 80053; 80069; 82948; 83036; 83735; 83880; 84443; 84484; 85025; 85027; 85610; 85730; 86140; 87635; 87637; 93005; 93970; 94003; 94640; 96374; 97110; 97163; 97165; 97530; 99285; A9270; C8929; J1939; Q9957

== ENCOUNTER 2023-11-10 18:13 | Inpatient (IN) | payer MEDICARE, SELFPAY ==
[2023-11-10] VITALS (17 sets, daily range): BP systolic 117–143; BP diastolic 40–71; PULSE 89–105; RESP 17–24; TEMP 36.2–37.4; O2SAT 93–100
--- NOTE | ~2023-11-10 | XR_ITS ---
EXAMINATION: XR chest 1V portable Exam Date/Time: 11/10/2023 18:32 CDT HISTORY: sob, lower leg swelling Comparison: 10/23/2023. RESULT: Lines, tubes, and devices: None. Lungs and pleura: Moderate diffuse reticular opacities. Cardiomediastinal silhouette: Stable. Other: No acute osseous or upper abdominal finding. IMPRESSION: Moderate interstitial edema. Reviewed, dictated and finalized at location K.
--- NOTE | 2023-11-10 18:22 | ECG_ITS ---
Measurements Intervals [place] Rate: 90 P: [place]: 0 QRS: -30 QRSD: 116 T: 55 QT: 394 QTc: 483 Interpretive Statements ATRIAL FIBRILLATION LOW QRS VOLTAGE IN PRECORDIAL LEADS [QRS DEFLECTION < 1.0 mV IN CHEST LEADS] COMPARED TO ECG 10/23/2023 15:17:23 NO SIGNIFICANT CHANGES Electronically Signed On 11-11-2023 8:49:51 CDT by Leesa Mora M.D.
[2023-11-10 18:40] LABS: Basophils Absolute Auto 0.1 K/mm3 (0.0-0.1); Basophils Percent Auto 0.6 % (0.2-1.2); Eosinophils Absolute Auto 0.1 K/mm3 (0-0.3); Eosinophils Percent Auto 1.7 % (0-4.4); Hematocrit 31.5 % (37.0-47.0); Hemoglobin 9.6 g/dL (12.0-15.0); Immature Granulocyte Absolute 0.03 K/mm3 (0.00-0.031); Immature Granulocyte Percent A 0.4 % (0-0.5); Lymphocytes Absolute Auto 1.38 K/mm3 (0.9-3.2); Lymphocytes Percent Auto 16.3 % (18.3-44.2); Mean Corpuscular HGB Conc 30.5 g/dl (32-36); Mean Corpuscular Hemoglobin 27.1 pg (26-34); Mean Platelet Volume 9.2 fl (7.4-10.4); Monocytes Absolute Auto 0.8 K/mm3 (0.1-0.6); Neutrophils Absolute Auto 6.1 K/mm3 (1.3-6.7); Platelet Count Result 200 k/mm3 (150-375); Red Blood Count 3.54 M/mm3 (4.2-5.4); Red Cell Distribution Width 18.7 % (11.5-14.5); White Blood Count 8.5 K/mm3 (4.5-10.0)
[2023-11-10 18:52] LABS: Alanine Aminotransferase 27 U/L (6-35); Albumin Level 3.3 g/dL (3.5-5.1); Alkaline Phosphatase 132 U/L (38-126); Anion Gap 2 mmol/L (4-12); Aspartate Amino Transferase 31 U/L (14-36); Bilirubin,Total 0.5 mg/dL (0.2-1.3); Blood Urea Nitrogen 42 mg/dL (7-17); Calcium 8.6 mg/dL (8.4-10.2); Carbon Dioxide 34 mmol/L (22-30); Chloride 101 mmol/L (98-107); Estimated CRCL calculation 67 ml/min; Estimated Glomerular Filt Rate 37; Glucose 151 mg/dL (65-110); Potassium 3.1 mmol/L (3.4-5.0); Sodium 137 mmol/L (137-145)
[2023-11-10 19:00] LABS: INR 1.2; Prothrombin Time 15.6 Seconds (11.1-14.7)
[2023-11-10 19:01] LABS: Partial Thromboplastin Time 36.7 Seconds (22.3-36.8)
[2023-11-10 19:03] LABS: NT Pro B Type Natriuretic Pept 841 pg/mL (19.9-100); Troponin I < 0.012 ng/mL (0.000-0.034)
--- NOTE | 2023-11-10 19:33 | ED.GENADULT ---
HPI - General Adult General Chief complaint: Shortness of Breath/Dyspnea Stated complaint: sob Time Seen by Provider: 11/10/23 19:07 History of Present Illness HPI narrative: Patient is a 48-year-old female who presents to the emergency department this evening complaining of shortness of breath and bilateral lower extremity edema. Patient admits that she does have a history of CHF and does take 3 mg of oral Bumex daily for her fluid overload and CHF. Patient states that she was recently hospitalized for fluid overload. Patient admits that she has gained approximately 60 lb of weight in the past month. She admits to exertional dyspnea which has been worsening past few days patient admits that she is on Eliquis for atrial fibrillation. She is currently denying any chest pain. There are no other modifying, alleviating, or precipitating factors with that. Related Data Home Medications Medication Instructions Recorded Confirmed levothyroxine 75 mcg tablet 75 mcg PO DAILY 03/14/23 10/23/23 Daily Multivitamin 1 tablet PO DAILY 09/23/23 10/23/23 acetaminophen 325 mg tablet 650 mg PO Q6H PRN Mild Pain (1-3) 09/23/23 10/23/23 Or Fever metoprolol tartrate 12.5 mg PO BID 09/23/23 10/23/23 sucralfate 1 gram tablet 1 g PO DAILY 09/23/23 10/23/23 albuterol sulfate 2.5 mg/0.5 mL 2.5 mg inhalation Q6H PRN 10/23/23 10/23/23 solution for nebulization Shortness Of Breath bumetanide 1 mg tablet 1 mg PO DAILY 10/23/23 10/23/23 bumetanide 2 mg tablet 2 mg PO QAM 10/23/23 10/23/23 buspirone 15 mg tablet 15 mg PO TID 10/23/23 10/23/23 ferrous sulfate 325 mg (65 mg 325 mg PO DAILY 10/23/23 10/23/23 iron) capsule,extended release metoclopramide HCl 10 mg tablet 10 mg PO TID 10/23/23 10/23/23 pantoprazole 40 mg tablet,delayed 40 mg PO BID 10/23/23 10/23/23 release paroxetine HCl 10 mg tablet 10 mg PO QAM 10/23/23 10/23/23 potassium chloride 20 mEq 40 meq PO BID 10/23/23 10/23/23 tablet,extended release sennosides 8.6 mg-docusate sodium 1 tab-cap PO HS 10/23/23 10/23/23 50 mg tablet (Senna Plus) spironolactone 25 mg tablet 12.5 mg PO DAILY 10/23/23 10/23/23 Allergies Allergy/AdvReac Type Severity Reaction Status Date / Time Sulfa (Sulfonamide Allergy Mild HIVES, Verified 11/10/23 18:38 Antibiotics) SWELLING sulfamethoxazole Allergy Mild HIVES, Verified 11/10/23 18:38 SWELLING sulfamethizole Allergy Unknown Hives Verified 11/10/23 18:38 trimethoprim Allergy Unknown Hives Verified 11/10/23 18:38 Review of Systems Review of Systems: All systems are reviewed and are negative unless stated otherwise in the HPI. [facility] Past Medical History Medical History Anxiety CHF (congestive heart failure), NYHA class I Chronic respiratory failure requiring treatment with nocturnal BPAP by mask Essential (primary) hypertension H/O adenomatous polyp of colon Hypertension associated with diabetes Hypothyroidism, unspecified Idiopathic peripheral neuropathy Irritable bowel syndrome with diarrhea Lymphedema of both lower extremities Magnesium deficiency Moderate major depression Morbid obesity Paroxysmal A-fib Psoriasis Stasis dermatitis Type 2 diabetes mellitus without complications Vitamin B12 deficiency Vitamin D deficiency Surgical History Surgical History H/O arthroscopic knee surgery H/O section X1 H/O dilation and curettage History of tonsillectomy and adenoidectomy Hx of cholecystectomy Family History Family History Mother Hypertension Sibling Hypertension Family history of congestive heart failure Other Family history of arthritis Social History Social History Social History: She lives alone and has one child. She is single and disabled. code status full code Smoking status:
--- NOTE | 2023-11-10 19:45 | PC.NURSE ---
Per EDP Dr. Lu hold on furosemide 80mg, until she consults Dr. Caputo.
[2023-11-10] MEDS: FUROSEMIDE INJ 100 MG/10 ML VIAL 80 MG IV PUSH (20:28)
[2023-11-10] MEDS: POTASSIUM CHLORIDE 20 MEQ PACKET (FOR LIQUID) 40 MEQ PO (20:29)
[2023-11-10 20:37] LABS: Magnesium 2.5 mg/dL (1.6-2.3)
[2023-11-10 21:07] LABS: Influenza A QL RT-PCR Negative (Negative); Influenza B QL RT-PCR Negative (Negative); RSV RNA, RT-PCR Negative (Negative); SARS-CoV-2 RNA PCR Negative (Negative)
--- NOTE | 2023-11-10 22:38 | ADMGEN ---
This patient, Peg Nicole, was admitted to Medical Room 341-01. Patient/family oriented to hospital policies and general routines including ID bracelet, bed and alarms, visiting hours, pain management, procedures, bathroom and other care routines, personal items, smoking policy, room service/diet, and visiting hours. Information on how to activate the Rapid Response Team has been discussed. Patient/Family are encouraged to report perceived risks to care and to ask questions if they do not understand what they are told or what they should do.
[2023-11-11] VITALS (14 sets, daily range): BP systolic 110–136; BP diastolic 41–60; PULSE 73–115; RESP 16–22; TEMP 36–36.7; O2SAT 93–100
[2023-11-11 00:03] LABS: Glucose Point of Care 139 mg/dl (65-105)
--- NOTE | 2023-11-11 07:57 | PM.IMHP ---
H&P: HPI History of Present Illness Date/Time: 11/11/23 04:50 Chief Complaint: Shortness of breath Narrative: 48-year-old female with a past medical history of obesity hypoventilation resulting in chronic respiratory failure on nighttime BiPAP, essential hypertension, type 2 diabetes mellitus, hypothyroidism, chronic lymphedema, paroxysmal atrial fibrillation among other comorbidities who presented to the ER from [facility] with complaints of shortness of breath. The patient reports she has gained 60 lb of water weight in the past month. The patient weight in September 2023 was reportedly 160.2. She was brought into the hospital again and in October it was 174. On discharge back to residential facility patient's weight was between 172. Her recorded weight on presentation the ER was 185 kg as the patient stated weight. The patient refuses to lay in the bariatric bed on the medical floor to get a more accurate weight. The patient's creatinine had went after diuresis during her last hospitalization. She was discharged home on 2 mg of Bumex during the day and 1 mg at night. She reports she has been having decreased urine output. She reports increased shortness of breath and increased dry cough. She has not been having any fevers or chills. She reports as he was recently discharged to acute rehab in injury incision to [facility] when her insurance ran out. She feels like she has been declining since she has with the [facility] and has lost some of her functional ability. She states she can barely walk now. Nursing staff was able to ambulate the patient to the restroom. The patient's chest x-ray in the ER did demonstrate moderate interstitial edema she received 80 mg of IV Lasix x1 in the ER. Review of Systems Review of Systems: 12 systems were reviewed with pertinent positives and negatives per HPI. Except as documented in the HPI, all other systems were reviewed and are negative. [facility] Past Medical History Medical History (Updated 11/11/23 @ 08:26 by Rabia Caputo DO) Anxiety CHF (congestive heart failure), NYHA class I Chronic respiratory failure requiring treatment with nocturnal BPAP by mask Essential (primary) hypertension H/O adenomatous polyp of colon Hypertension associated with diabetes Hypothyroidism, unspecified Idiopathic peripheral neuropathy Irritable bowel syndrome with diarrhea Lymphedema of both lower extremities Magnesium deficiency Moderate major depression Morbid obesity Paroxysmal A-fib Psoriasis Restless leg syndrome Stasis dermatitis Type 2 diabetes mellitus without complications Vitamin B12 deficiency Vitamin D deficiency Surgical History Surgical History H/O arthroscopic knee surgery H/O section X1 H/O dilation and curettage History of tonsillectomy and adenoidectomy Hx of cholecystectomy Family History Family History Mother Hypertension Sibling Hypertension Family history of congestive heart failure Other Family history of arthritis Social History Social History (Updated 11/11/23 @ 08:21 by Rabia Caputo DO) Social History: Prior to her recent hospitalizations she lives alone. She had 1 child. She is single and disabled. Code status: Full code Smoking status: Never smoker Second hand tobacco smoke exposure: No Alcohol intake: never Substance use: never Substance use type: does not use Do You Feel Safe in your Home?: Yes Lack of Transportation: No Lack of Food: Never True Current Housing: I Have Housing Concerned About Future Housing: No Difficulty Paying Gas/Electric Bills: No Difficulty Paying for Meds: No Currently Unemployed: No Education: High School Diploma/GED Difficulty w/ Childcare or Family Care: No Gender identity (if verbalized by the patient): Female
[2023-11-11 09:05] LABS: Hematocrit 29.7 % (37.0-47.0); Hemoglobin 8.9 g/dL (12.0-15.0); Mean Corpuscular Hemoglobin 26.6 pg (26-34); Mean Corpuscular Volume 88.7 fl (80-100); Mean Platelet Volume 9.6 fl (7.4-10.4); Platelet Count Result 198 k/mm3 (150-375); Red Blood Count 3.35 M/mm3 (4.2-5.4); White Blood Count 8.3 K/mm3 (4.5-10.0)
--- NOTE | 2023-11-11 09:29 | PM.IMPN ---
Progress Note: A&P Assessment and Plan (1) Acute exacerbation of CHF (congestive heart failure): Qualifiers: Heart failure type: unspecified Qualified Code(s): I50.9 - Heart failure, unspecified Code(s): I50.9 - Heart failure, unspecified Status: Acute (2) Bilateral edema of lower extremity: Code(s): R60.0 - Localized edema Status: Acute (3) Acute hypokalemia: Code(s): E87.6 - Hypokalemia Status: Acute (4) Acute kidney injury: Code(s): N17.9 - Acute kidney failure, unspecified Status: Acute (5) Cellulitis of right lower extremity: Code(s): L03.115 - Cellulitis of right lower limb Status: Acute Plan Acute on chronic diastolic heart failure Patient has history of diastolic heart failure on echocardiogram October 24, 2023 Chest x-ray suggest patient has pulmonary edema and component of acute CHF exacerbation on Bumex 2 mg IV b.i.d. monitor strict I&O's. Spironolactone 25 mg daily The patient reports a stated 60 lb weight gain Negative input output 310ml Morbid obesity complicated chronic obesity hypoventilation syndrome. O2 therapy as needed BiPAP during the night order ABG CKD stage 3 Stable Hypokalemia Replete potassium chloride Follow-up BMP Right lower cellulitis Right lower extremity is swollen, skin is red, hot Consistent with cellulitis Start doxycycline 100 mg q.12 hours p.o., ceftriaxone 2 g IV daily Lymphedema Worsening edema likely secondary to fluid overload superimposed lymphedema and cellulitis Consult PT OT director social family service caseworker for assisting placement Subjective Date/time seen: 11/11/23 09:29 Interval history: I saw and examined the patient today. Patient still has shortness breath, patient is in recliner. Patient also has tetanus feeling of right lower extremity. Patient denies chest pain, abdomen pain, nausea vomiting Exam Narrative: GENERAL: Pleasant, in no acute distress. Well-nourished. Morbid obesity - EYES: EOMI. Anicteric. - HENT: Moist mucous membranes. - LUNGS: Coarse breath sound bilateral base, no wheezing, rhonchi, or rales. - CARDIOVASCULAR: Regular rate and rhythm. No murmur. No JVD. - ABDOMEN: Soft, non-tender and non-distended. No palpable masses. - EXTREMITIES: 2+ lower extremity edema. Peripheral pulses 2+. Non-tender. - NEUROLOGIC: No focal neurological deficits. CN II-XII grossly intact. - PSYCHIATRIC: Awake, Alert and oriented x 3. Appropriate mood and affect. - SKIN: Tender, swelling, erythema of right lower extremity - LYMPH: No cervical lymphadenopathy. Objective Data Vital Signs Vital Signs: Vital Signs - 24 hr 11/10/23 18:22 11/10/23 18:29 11/10/23 19:44 Temperature 99.4 F Pulse Rate 91 95 97 Respiratory Rate 18 Blood Pressure 143/66 H Pulse Oximetry 100 Oxygen Delivery Room Air 11/10/23 19:44 11/10/23 19:45 11/10/23 18:55 Temperature Pulse Rate 98 91 Respiratory Rate 19 19 Blood Pressure 141/66 H Pulse Oximetry 100 95 100 Oxygen Delivery Room Air 11/10/23 19:00 11/10/23 19:30 11/10/23 19:32 Temperature Pulse Rate 89 99 95 Respiratory Rate 19 17 20 Blood Pressure 141/66 H Pulse Oximetry 100 99 100 Oxygen Delivery 11/10/23 19:45 11/10/23 20:00 11/10/23 20:15 Temperature Pulse Rate 94 91 98 Respiratory Rate 20 20 20 Blood Pressure Pulse Oximetry 94 93 Oxygen Delivery 11/10/23 20:17 11/10/23 20:30 11/10/23 20:31 Temperature Pulse Rate 98 98 104 H Respiratory Rate 21 H 21 H 20 Blood Pressure 117/71 139/62 Pulse Oximetry 95 97 98 Oxygen Delivery 11/10/23 21:26 11/10/23 21:30 11/10/23 23:04 Temperature Pulse Rate 104 H Respiratory Rate 20 Blood Pressure Pulse Oximetry 98 98 98 Oxygen Delivery Room Air 11/10/23 23:54 11/11/23 00:00 11/11/23 03:06 Temperature 97.2 F L Pulse Rate 105 H 94 Respiratory Rate 24 H 16 Blood Pressure 122/40
[2023-11-11 09:35] LABS: Anion Gap 3 mmol/L (4-12); Blood Urea Nitrogen 40 mg/dL (7-17); Calcium 8.5 mg/dL (8.4-10.2); Carbon Dioxide 33 mmol/L (22-30); Chloride 100 mmol/L (98-107); Estimated CRCL calculation 83 ml/min; Estimated Glomerular Filt Rate 48; Glucose 137 mg/dL (65-110); Potassium 3.2 mmol/L (3.4-5.0); Sodium 136 mmol/L (137-145)
[2023-11-11] MEDS: QUEtiapine FUMARATE 100 MG TABLET PO ×2 (10:33→14:52)
[2023-11-11] MEDS: lamoTRIgine 100 MG TABLET PO (10:34)
[2023-11-11] MEDS: FERROUS SULFATE 325 MG TABLET DR PO (10:34)
[2023-11-11] MEDS: METOPROLOL TARTRATE 12.5 MG TABLET PO ×2 (10:35→22:41)
[2023-11-11] MEDS: busPIRone HCL 5 MG TABLET 15 MG PO ×3 (10:35→17:18)
[2023-11-11] MEDS: EMPAGLIFLOZIN 10 MG TABLET PO (10:36)
[2023-11-11] MEDS: SPIRONOLACTONE 25 MG TABLET PO (10:36)
[2023-11-11] MEDS: guaiFENesin 12 HR 600 MG TABCR PO ×2 (10:36→20:41)
[2023-11-11] MEDS: SUCRALFATE 1 GM TABLET PO (10:36)
[2023-11-11] MEDS: POTASSIUM CHLORIDE 20 MEQ ER TABLET 40 MEQ PO ×2 (10:36→17:18)
[2023-11-11] MEDS: PARoxetine 10 MG TABLET PO (10:37)
[2023-11-11] MEDS: PANTOPRAZOLE 40 MG TABLET PO ×2 (10:37→22:41)
[2023-11-11] MEDS: MULTIVITAMINS THERAPEUTIC TAB (*BKC) 1 TABLET PO (10:37)
[2023-11-11] MEDS: METOCLOPRAMIDE HCL 10 MG TABLET PO ×3 (10:37→17:18)
[2023-11-11] MEDS: TOLNAFTATE 1% POWDER 45 GM BTL 1 APPLIC TOPICAL ×2 (10:37→22:44)
[2023-11-11] MEDS: APIXABAN 5 MG TABLET PO ×2 (10:37→20:41)
[2023-11-11] MEDS: LEVOTHYROXINE SODIUM 75 MCG TABLET PO (10:37)
[2023-11-11] MEDS: BUMETANIDE INJ 1 MG/4 ML VIAL 2 MG IV PUSH ×2 (10:38→17:18)
[2023-11-11] MEDS: cefTRIAXone 2 GM/NS 100 ML 2 GM/100 ML BAG IVPB (12:52)
[2023-11-11 13:26] LABS: Alveolar/Arterial O2 Gradient 30.4 mmHg; Base Excess ABG 6.3 mEq/l (+/-2.0); Fractional Inspired Oxygen 21 %; HCO3 ABG 30.9 mEq/l (22.0-26.0); Oxygen Content ABG 13.2 %vol (16.0-22.0); Oxygen Saturation ABG 93.8 % (95.0-100.0); Oxyhemoglobin 90.9 % THb (90.0-100.0); PCO2 ABG 44.8 mmHg (35.0-45.0); PO2 ABG 65.7 mmHg (80.0-100.0); PO2 FiO2 Ratio Arterial Blood 3.13 %; Total Hemoglobin 10.3 g/dL (12.0-18.0); pH ABG 7.456 (7.350-7.450)
[2023-11-11 13:27] LABS: Device ROOM AIR; Modified Allen's Test Pass; Site Drawn RIGHT RADIAL
[2023-11-11] MEDS: DOXYCYCLINE HYCLATE 100 MG TABLET PO (20:41)
[2023-11-11] MEDS: QUEtiapine FUMARATE 100 MG TABLET 200 MG PO (22:41)
[2023-11-12] VITALS (13 sets, daily range): BP systolic 111–140; BP diastolic 56–60; PULSE 87–105; RESP 15–18; TEMP 36.3–36.6; O2SAT 92–95
[2023-11-12] MEDS: LEVOTHYROXINE SODIUM 75 MCG TABLET PO (05:47)
--- NOTE | 2023-11-12 08:22 | PM.IMPN ---
Progress Note: A&P Assessment and Plan (1) Acute exacerbation of CHF (congestive heart failure): Qualifiers: Heart failure type: unspecified Qualified Code(s): I50.9 - Heart failure, unspecified Code(s): I50.9 - Heart failure, unspecified Status: Acute (2) Bilateral edema of lower extremity: Code(s): R60.0 - Localized edema Status: Acute (3) Acute hypokalemia: Code(s): E87.6 - Hypokalemia Status: Acute (4) Acute kidney injury: Code(s): N17.9 - Acute kidney failure, unspecified Status: Acute (5) Cellulitis of right lower extremity: Code(s): L03.115 - Cellulitis of right lower limb Status: Acute Plan Acute on chronic diastolic heart failure Patient has history of diastolic heart failure on echocardiogram October 24, 2023 Chest x-ray suggest patient has pulmonary edema and component of acute CHF exacerbation on Bumex 2 mg IV b.i.d. monitor strict I&O's. Spironolactone 25 mg daily The patient reports a stated 60 lb weight gain Negative input output c/w current treatments, pt feels sob is improving Morbid obesity complicated chronic obesity hypoventilation syndrome. O2 therapy as needed BiPAP during the night order ABG: Hypoxemia without CO2 retention CKD stage 3 Stable Hypokalemia Replete potassium chloride Follow-up BMP Right lower cellulitis Right lower extremity is swollen, skin is red, hot Consistent with cellulitis Start doxycycline 100 mg q.12 hours p.o., ceftriaxone 2 g IV daily Lymphedema Worsening edema likely secondary to fluid overload superimposed lymphedema and cellulitis Consult PT OT social service manager outsole caser for assisting placement Subjective Date/time seen: 11/12/23 08:22 Interval history: I saw and examined the patient today. Negative input output over the night, negative balance 4090 mL. Patient feels dyspnea is improving, leg pain is improving. Patient afebrile, blood pressure stable, Exam Narrative: GENERAL: Pleasant, in no acute distress. Well-nourished. Morbid obesity - EYES: EOMI. Anicteric. - HENT: Moist mucous membranes. - LUNGS: Coarse breath sound bilateral base, no wheezing, rhonchi, or rales. - CARDIOVASCULAR: Regular rate and rhythm. No murmur. No JVD. - ABDOMEN: Soft, non-tender and non-distended. No palpable masses. - EXTREMITIES: 2+ lower extremity edema. Peripheral pulses 2+. Non-tender. - NEUROLOGIC: No focal neurological deficits. CN II-XII grossly intact. - PSYCHIATRIC: Awake, Alert and oriented x 3. Appropriate mood and affect. - SKIN: Tender, swelling, erythema of right lower extremity - LYMPH: No cervical lymphadenopathy. Objective Data Vital Signs Vital Signs: Vital Signs - 24 hr 11/11/23 08:55 11/11/23 08:55 11/11/23 10:35 Temperature Pulse Rate 100 100 107 H Respiratory Rate Blood Pressure Pulse Oximetry Oxygen Delivery Autopap 11/11/23 11:33 11/11/23 14:03 11/11/23 12:00 Temperature Pulse Rate 95 Respiratory Rate Blood Pressure Pulse Oximetry Oxygen Delivery Room Air Room Air 11/11/23 16:00 11/11/23 16:51 11/11/23 20:00 Temperature 97.0 F L Pulse Rate 91 95 94 Respiratory Rate 18 Blood Pressure 116/47 L Pulse Oximetry 93 Oxygen Delivery 11/11/23 22:00 11/11/23 22:41 11/11/23 22:35 Temperature 96.8 F L Pulse Rate 73 73 Respiratory Rate 16 19 Blood Pressure 136/60 Pulse Oximetry 100 98 Oxygen Delivery Autopap 11/12/23 00:00 11/12/23 02:41 11/12/23 04:00 Temperature Pulse Rate 89 99 88 Respiratory Rate 15 Blood Pressure Pulse Oximetry Oxygen Delivery Autopap 11/12/23 05:51 11/12/23 07:47 Temperature 97.4 F L Pulse Rate 102 H Respiratory Rate 18 Blood Pressure 140/56 L Pulse Oximetry 95 92 Oxygen Delivery Room Air Intake/Output Intake/Output: Intake & Output 11/09/23 11/10/23 11/11/23 11/12/23 23:59 23:59 23:59 23:59 Int
[2023-11-12] MEDS: BUMETANIDE INJ 1 MG/4 ML VIAL 2 MG IV PUSH ×2 (09:40→18:20)
[2023-11-12] MEDS: SPIRONOLACTONE 25 MG TABLET PO (09:41)
[2023-11-12] MEDS: MULTIVITAMINS THERAPEUTIC TAB (*BKC) 1 TABLET PO (09:41)
[2023-11-12] MEDS: PARoxetine 10 MG TABLET PO (09:41)
[2023-11-12] MEDS: PANTOPRAZOLE 40 MG TABLET PO ×2 (09:41→20:29)
[2023-11-12] MEDS: DOXYCYCLINE HYCLATE 100 MG TABLET PO ×2 (09:41→20:29)
[2023-11-12] MEDS: POTASSIUM CHLORIDE 20 MEQ ER TABLET 40 MEQ PO ×2 (09:41→18:19)
[2023-11-12] MEDS: APIXABAN 5 MG TABLET PO ×2 (09:41→20:29)
[2023-11-12] MEDS: lamoTRIgine 100 MG TABLET PO (09:41)
[2023-11-12] MEDS: busPIRone HCL 5 MG TABLET 15 MG PO ×3 (09:41→18:20)
[2023-11-12] MEDS: SUCRALFATE 1 GM TABLET PO (09:41)
[2023-11-12] MEDS: QUEtiapine FUMARATE 100 MG TABLET PO ×2 (09:41→15:11)
[2023-11-12] MEDS: METOCLOPRAMIDE HCL 10 MG TABLET PO ×3 (09:41→18:19)
[2023-11-12] MEDS: guaiFENesin 12 HR 600 MG TABCR PO ×2 (09:42→20:31)
[2023-11-12] MEDS: EMPAGLIFLOZIN 10 MG TABLET PO (09:42)
[2023-11-12] MEDS: FERROUS SULFATE 325 MG TABLET DR PO (09:42)
[2023-11-12] MEDS: TOLNAFTATE 1% POWDER 45 GM BTL 1 APPLIC TOPICAL ×2 (09:42→20:33)
[2023-11-12] MEDS: METOPROLOL TARTRATE 12.5 MG TABLET PO ×2 (09:44→20:29)
[2023-11-12 09:50] LABS: Basophils Absolute Auto 0.1 K/mm3 (0.0-0.1); Basophils Percent Auto 0.8 % (0.2-1.2); Eosinophils Absolute Auto 0.1 K/mm3 (0-0.3); Hematocrit 30.5 % (37.0-47.0); Hemoglobin 9.1 g/dL (12.0-15.0); Immature Granulocyte Absolute 0.02 K/mm3 (0.00-0.031); Immature Granulocyte Percent A 0.3 % (0-0.5); Lymphocytes Absolute Auto 1.17 K/mm3 (0.9-3.2); Lymphocytes Percent Auto 18.4 % (18.3-44.2); Mean Corpuscular HGB Conc 29.8 g/dl (32-36); Mean Corpuscular Hemoglobin 27.1 pg (26-34); Mean Corpuscular Volume 90.8 fl (80-100); Mean Platelet Volume 9.4 fl (7.4-10.4); Monocytes Absolute Auto 0.6 K/mm3 (0.1-0.6); Monocytes Percent Auto 9.3 % (2.6-8.5); Neutrophils Absolute Auto 4.4 K/mm3 (1.3-6.7); Neutrophils Percent Auto 69.2 % (45.5-73.1); Platelet Count Result 173 k/mm3 (150-375); Red Blood Count 3.36 M/mm3 (4.2-5.4); Red Cell Distribution Width 19.2 % (11.5-14.5); White Blood Count 6.4 K/mm3 (4.5-10.0)
[2023-11-12 10:04] LABS: Anion Gap 1 mmol/L (4-12); Blood Urea Nitrogen 34 mg/dL (7-17); Calcium 8.8 mg/dL (8.4-10.2); Carbon Dioxide 36 mmol/L (22-30); Chloride 103 mmol/L (98-107); Estimated CRCL calculation 77 ml/min; Estimated Glomerular Filt Rate 43; Glucose 129 mg/dL (65-110); Potassium 3.3 mmol/L (3.4-5.0); Sodium 140 mmol/L (137-145)
[2023-11-12 10:16] LABS: Anisocytosis 1+; Ovalocytes 1+; Platelet Estimate Adequate (Adequate); Polychromasia 1+; Schistocytes None Seen
[2023-11-12] MEDS: cefTRIAXone 2 GM/NS 100 ML 2 GM/100 ML BAG IVPB (12:17)
[2023-11-12] MEDS: QUEtiapine FUMARATE 100 MG TABLET 200 MG PO (20:31)
[2023-11-13] VITALS (13 sets, daily range): BP systolic 99–124; BP diastolic 36–45; PULSE 62–123; RESP 16–22; TEMP 36.2–36.6; O2SAT 90–100
[2023-11-13] MEDS: LEVOTHYROXINE SODIUM 75 MCG TABLET PO (05:29)
[2023-11-13 06:01] LABS: Basophils Percent Auto 0.5 % (0.2-1.2); Eosinophils Absolute Auto 0.1 K/mm3 (0-0.3); Eosinophils Percent Auto 1.8 % (0-4.4); Hematocrit 30.6 % (37.0-47.0); Hemoglobin 9.1 g/dL (12.0-15.0); Immature Granulocyte Absolute 0.01 K/mm3 (0.00-0.031); Immature Granulocyte Percent A 0.2 % (0-0.5); Lymphocytes Absolute Auto 1.01 K/mm3 (0.9-3.2); Lymphocytes Percent Auto 16.5 % (18.3-44.2); Mean Corpuscular HGB Conc 29.7 g/dl (32-36); Mean Corpuscular Hemoglobin 26.9 pg (26-34); Mean Corpuscular Volume 90.5 fl (80-100); Mean Platelet Volume 10.1 fl (7.4-10.4); Monocytes Absolute Auto 0.6 K/mm3 (0.1-0.6); Monocytes Percent Auto 10.5 % (2.6-8.5); Neutrophils Absolute Auto 4.3 K/mm3 (1.3-6.7); Neutrophils Percent Auto 70.5 % (45.5-73.1); Platelet Count Result 181 k/mm3 (150-375); Red Blood Count 3.38 M/mm3 (4.2-5.4); Red Cell Distribution Width 19.3 % (11.5-14.5); White Blood Count 6.1 K/mm3 (4.5-10.0)
[2023-11-13 06:23] LABS: Anion Gap 2 mmol/L (4-12); Blood Urea Nitrogen 31 mg/dL (7-17); Calcium 8.6 mg/dL (8.4-10.2); Carbon Dioxide 37 mmol/L (22-30); Chloride 104 mmol/L (98-107); Estimated CRCL calculation 67 ml/min; Estimated Glomerular Filt Rate 37; Glucose 127 mg/dL (65-110); Potassium 3.7 mmol/L (3.4-5.0); Sodium 143 mmol/L (137-145)
[2023-11-13 06:31] LABS: Anisocytosis 1+; Microcytosis 1+ (NORMAL); Platelet Estimate Adequate (Adequate); Schistocytes None Seen
--- NOTE | 2023-11-13 09:02 | PM.IMPN ---
Progress Note: A&P Assessment and Plan (1) Acute exacerbation of CHF (congestive heart failure): Qualifiers: Heart failure type: unspecified Qualified Code(s): I50.9 - Heart failure, unspecified Code(s): I50.9 - Heart failure, unspecified Status: Acute (2) Bilateral edema of lower extremity: Code(s): R60.0 - Localized edema Status: Acute (3) Acute hypokalemia: Code(s): E87.6 - Hypokalemia Status: Acute (4) Acute kidney injury: Code(s): N17.9 - Acute kidney failure, unspecified Status: Acute (5) Cellulitis of right lower extremity: Code(s): L03.115 - Cellulitis of right lower limb Status: Acute Plan Acute on chronic diastolic heart failure Patient has history of diastolic heart failure on echocardiogram October 24, 2023 Chest x-ray suggest patient has pulmonary edema and component of acute CHF exacerbation on Bumex 2 mg IV b.i.d. monitor strict I&O's. Spironolactone 25 mg daily The patient reports a stated 60 lb weight gain Negative input output 3060 on 11/12 c/w current treatments, pt feels sob is improving Morbid obesity complicated chronic obesity hypoventilation syndrome. O2 therapy as needed BiPAP during the night order ABG: Hypoxemia without CO2 retention CKD stage 3 Stable Hypokalemia Replete potassium chloride Follow-up BMP corrected Right lower cellulitis Right lower extremity is swollen, skin is red, hot Consistent with cellulitis Start doxycycline 100 mg q.12 hours p.o., ceftriaxone 2 g IV daily subsiing now Lymphedema Worsening edema likely secondary to fluid overload superimposed lymphedema and cellulitis Consult PT OT social worker health services nurse outreach case manager for assisting placement Subjective Date/time seen: 11/13/23 09:02 Interval history: I saw and examined the patient today. Negative input output over the night, negative balance 3060 mL. Patient feels dyspnea is improving, leg pain is improving. Patient afebrile, blood pressure stable, Exam Narrative: GENERAL: Pleasant, in no acute distress. Well-nourished. Morbid obesity - EYES: EOMI. Anicteric. - HENT: Moist mucous membranes. - LUNGS: Coarse breath sound bilateral base, no wheezing, rhonchi, or rales. - CARDIOVASCULAR: Regular rate and rhythm. No murmur. No JVD. - ABDOMEN: Soft, non-tender and non-distended. No palpable masses. - EXTREMITIES: 2+ lower extremity edema. Peripheral pulses 2+. Non-tender. - NEUROLOGIC: No focal neurological deficits. CN II-XII grossly intact. - PSYCHIATRIC: Awake, Alert and oriented x 3. Appropriate mood and affect. - SKIN: Tender, swelling, erythema of right lower extremity - LYMPH: No cervical lymphadenopathy. Objective Data Vital Signs Vital Signs: Vital Signs - 24 hr 11/12/23 09:44 11/12/23 14:00 11/12/23 12:00 Temperature 97.8 F Pulse Rate 105 H 90 87 Respiratory Rate 16 Blood Pressure 122/60 Pulse Oximetry 92 Oxygen Delivery 11/12/23 16:00 11/12/23 20:29 11/12/23 20:00 Temperature Pulse Rate 95 100 90 Respiratory Rate Blood Pressure Pulse Oximetry Oxygen Delivery 11/12/23 20:00 11/12/23 21:53 11/13/23 00:00 Temperature 97.8 F Pulse Rate 88 99 Respiratory Rate 18 Blood Pressure 111/57 L Pulse Oximetry 93 Oxygen Delivery Room Air 11/13/23 00:55 11/13/23 04:00 11/13/23 06:00 Temperature 97.8 F Pulse Rate 91 85 Respiratory Rate 16 20 Blood Pressure 105/45 L Pulse Oximetry 100 94 Oxygen Delivery Autopap Intake/Output Intake/Output: Intake & Output 11/10/23 11/11/23 11/12/23 11/13/23 23:59 23:59 23:59 23:59 Intake Total 2009 1039 170 Output Total 1 9364 1233 [facility]5382 -2560 -1060 Meds/Results Medications: Active Medications Generic Name Dose Route Start Last Admin Trade Name Freq PRN Reason Stop Dose Admin Acetaminophen 650 mg 11/11/23 08:01 Acetaminophen 325 Mg Tablet PO Q6H IL
[2023-11-13] MEDS: POTASSIUM CHLORIDE 20 MEQ ER TABLET 40 MEQ PO ×2 (09:25→16:12)
[2023-11-13] MEDS: QUEtiapine FUMARATE 100 MG TABLET PO ×2 (09:25→15:59)
[2023-11-13] MEDS: guaiFENesin 12 HR 600 MG TABCR PO ×2 (09:25→20:16)
[2023-11-13] MEDS: SUCRALFATE 1 GM TABLET PO (09:25)
[2023-11-13] MEDS: SPIRONOLACTONE 25 MG TABLET PO (09:26)
[2023-11-13] MEDS: METOCLOPRAMIDE HCL 10 MG TABLET PO ×3 (09:26→16:11)
[2023-11-13] MEDS: PANTOPRAZOLE 40 MG TABLET PO ×2 (09:26→20:15)
[2023-11-13] MEDS: lamoTRIgine 100 MG TABLET PO (09:26)
[2023-11-13] MEDS: PARoxetine 10 MG TABLET PO (09:26)
[2023-11-13] MEDS: DOXYCYCLINE HYCLATE 100 MG TABLET PO ×2 (09:26→20:15)
[2023-11-13] MEDS: EMPAGLIFLOZIN 10 MG TABLET PO (09:26)
[2023-11-13] MEDS: FERROUS SULFATE 325 MG TABLET DR PO (09:26)
[2023-11-13] MEDS: busPIRone HCL 5 MG TABLET 15 MG PO ×3 (09:27→16:11)
[2023-11-13] MEDS: MULTIVITAMINS THERAPEUTIC TAB (*BKC) 1 TABLET PO (09:28)
[2023-11-13] MEDS: TOLNAFTATE 1% POWDER 45 GM BTL 1 APPLIC TOPICAL ×2 (09:28→20:17)
[2023-11-13] MEDS: METOPROLOL TARTRATE 12.5 MG TABLET PO ×2 (09:29→20:16)
[2023-11-13] MEDS: APIXABAN 5 MG TABLET PO ×2 (09:31→20:16)
[2023-11-13] MEDS: cefTRIAXone 2 GM/NS 100 ML 2 GM/100 ML BAG IVPB (12:12)
[2023-11-13] MEDS: ACETAMINOPHEN 325 MG TABLET 650 MG PO (15:58)
[2023-11-13] MEDS: BUMETANIDE INJ 1 MG/4 ML VIAL IV PUSH (16:11)
[2023-11-13] MEDS: QUEtiapine FUMARATE 100 MG TABLET 200 MG PO (20:15)
[2023-11-14] VITALS (13 sets, daily range): BP systolic 108–123; BP diastolic 37–46; PULSE 77–100; RESP 15–22; TEMP 36.3–36.8; O2SAT 95–98
[2023-11-14 06:06] LABS: Basophils Percent Auto 0.9 % (0.2-1.2); Eosinophils Absolute Auto 0.2 K/mm3 (0-0.3); Eosinophils Percent Auto 3.9 % (0-4.4); Hematocrit 32.1 % (37.0-47.0); Hemoglobin 9.1 g/dL (12.0-15.0); Immature Granulocyte Absolute 0.01 K/mm3 (0.00-0.031); Immature Granulocyte Percent A 0.2 % (0-0.5); Lymphocytes Absolute Auto 1.03 K/mm3 (0.9-3.2); Lymphocytes Percent Auto 22.1 % (18.3-44.2); Mean Corpuscular HGB Conc 28.3 g/dl (32-36); Mean Corpuscular Hemoglobin 26.5 pg (26-34); Mean Corpuscular Volume 93.3 fl (80-100); Mean Platelet Volume 9.9 fl (7.4-10.4); Monocytes Absolute Auto 0.5 K/mm3 (0.1-0.6); Monocytes Percent Auto 9.9 % (2.6-8.5); Neutrophils Absolute Auto 2.9 K/mm3 (1.3-6.7); Platelet Count Result 160 k/mm3 (150-375); Red Blood Count 3.44 M/mm3 (4.2-5.4); Red Cell Distribution Width 19.6 % (11.5-14.5); White Blood Count 4.7 K/mm3 (4.5-10.0)
[2023-11-14] MEDS: LEVOTHYROXINE SODIUM 75 MCG TABLET PO (06:09)
[2023-11-14 06:33] LABS: Anion Gap 3 mmol/L (4-12); Blood Urea Nitrogen 29 mg/dL (7-17); Calcium 9.1 mg/dL (8.4-10.2); Carbon Dioxide 34 mmol/L (22-30); Chloride 106 mmol/L (98-107); Estimated CRCL calculation 72 ml/min; Estimated Glomerular Filt Rate 40; Glucose 124 mg/dL (65-110); Potassium 3.9 mmol/L (3.4-5.0); Sodium 143 mmol/L (137-145)
--- NOTE | 2023-11-14 09:00 | PM.IMPN ---
Progress Note: A&P Assessment and Plan (1) Acute exacerbation of CHF (congestive heart failure): Qualifiers: Heart failure type: unspecified Qualified Code(s): I50.9 - Heart failure, unspecified Code(s): I50.9 - Heart failure, unspecified Status: Acute (2) Bilateral edema of lower extremity: Code(s): R60.0 - Localized edema Status: Acute (3) Acute hypokalemia: Code(s): E87.6 - Hypokalemia Status: Acute (4) Acute kidney injury: Code(s): N17.9 - Acute kidney failure, unspecified Status: Acute (5) Cellulitis of right lower extremity: Code(s): L03.115 - Cellulitis of right lower limb Status: Acute Plan Acute on chronic diastolic heart failure Patient has history of diastolic heart failure on echocardiogram October 24, 2023 Chest x-ray suggest patient has pulmonary edema and component of acute CHF exacerbation on Bumex 2 mg IV b.i.d. monitor strict I&O's. Spironolactone 25 mg daily The patient reports a stated 60 lb weight gain Negative input output 3060 on 11/12 c/w current treatments, pt feels sob is improving 11/13 negative balance of input output: -3330, continue Bumex 1 mg b.i.d. IV push Morbid obesity complicated chronic obesity hypoventilation syndrome. O2 therapy as needed BiPAP during the night order ABG: Hypoxemia without CO2 retention CKD stage 3 Stable Patient on vigorous diuretic medication, monitor BMP daily Hypokalemia Replete potassium chloride Follow-up BMP corrected Right lower cellulitis Right lower extremity is swollen, skin is red, hot Consistent with cellulitis Start doxycycline 100 mg q.12 hours p.o., ceftriaxone 2 g IV daily subsiing now Continue IV antibiotics today, predict to transition to oral antibiotics on Friday Lymphedema Worsening edema likely secondary to fluid overload superimposed lymphedema and cellulitis Consult PT OT addiction social worker excellence manager for assisting placement Subjective Date/time seen: 11/14/23 09:00 Interval history: I saw and examined the patient today. Negative input output over the night, negative balance -3330 mL. Patient feels dyspnea is improving, leg pain is improving. Patient afebrile, blood pressure stable, Exam Narrative: GENERAL: Pleasant, in no acute distress. Well-nourished. Morbid obesity - EYES: EOMI. Anicteric. - HENT: Moist mucous membranes. - LUNGS: Coarse breath sound bilateral base, no wheezing, rhonchi, or rales. - CARDIOVASCULAR: Regular rate and rhythm. No murmur. No JVD. - ABDOMEN: Soft, non-tender and non-distended. No palpable masses. - EXTREMITIES: 2+ lower extremity edema. Peripheral pulses 2+. Non-tender. - NEUROLOGIC: No focal neurological deficits. CN II-XII grossly intact. - PSYCHIATRIC: Awake, Alert and oriented x 3. Appropriate mood and affect. - SKIN: Tender, swelling, erythema of right lower extremity - LYMPH: No cervical lymphadenopathy. Objective Data Vital Signs Vital Signs: Vital Signs - 24 hr 11/13/23 09:29 11/13/23 12:00 11/13/23 15:21 Temperature 97.1 F L Pulse Rate 71 92 62 Respiratory Rate 20 Blood Pressure 124/44 L Pulse Oximetry 90 Oxygen Delivery 11/13/23 16:00 11/13/23 20:16 11/13/23 20:00 Temperature Pulse Rate 86 110 H 123 H Respiratory Rate Blood Pressure Pulse Oximetry Oxygen Delivery 11/13/23 20:00 11/13/23 21:06 11/13/23 22:00 Temperature 97.6 F Pulse Rate 97 Respiratory Rate 22 H Blood Pressure 99/36 L Pulse Oximetry 91 92 Oxygen Delivery Room Air Room Air 11/14/23 00:00 11/14/23 00:30 11/14/23 04:00 Temperature Pulse Rate 95 87 83 Respiratory Rate 15 Blood Pressure Pulse Oximetry 96 Oxygen Delivery Autopap 11/14/23 06:00 Temperature 97.7 F Pulse Rate 80 Respiratory Rate 22 H Blood Pressure 112/45 L Pulse Oximetry 98 Oxygen Delivery Intake/Output Intake/Output: Intake & Output 11/11/23
[2023-11-14] MEDS: PANTOPRAZOLE 40 MG TABLET PO ×2 (09:21→20:19)
[2023-11-14] MEDS: BUMETANIDE INJ 1 MG/4 ML VIAL IV PUSH ×2 (09:21→17:22)
[2023-11-14] MEDS: lamoTRIgine 100 MG TABLET PO (09:21)
[2023-11-14] MEDS: POTASSIUM CHLORIDE 20 MEQ ER TABLET 40 MEQ PO ×2 (09:22→17:22)
[2023-11-14] MEDS: APIXABAN 5 MG TABLET PO ×2 (09:22→20:20)
[2023-11-14] MEDS: guaiFENesin 12 HR 600 MG TABCR PO ×2 (09:22→20:19)
[2023-11-14] MEDS: DOXYCYCLINE HYCLATE 100 MG TABLET PO ×2 (09:22→20:19)
[2023-11-14] MEDS: EMPAGLIFLOZIN 10 MG TABLET PO (09:22)
[2023-11-14] MEDS: MULTIVITAMINS THERAPEUTIC TAB (*BKC) 1 TABLET PO (09:22)
[2023-11-14] MEDS: METOPROLOL TARTRATE 12.5 MG TABLET PO ×2 (09:22→20:20)
[2023-11-14] MEDS: PARoxetine 10 MG TABLET PO (09:22)
[2023-11-14] MEDS: FERROUS SULFATE 325 MG TABLET DR PO (09:23)
[2023-11-14] MEDS: busPIRone HCL 5 MG TABLET 15 MG PO ×3 (09:23→17:22)
[2023-11-14] MEDS: METOCLOPRAMIDE HCL 10 MG TABLET PO ×3 (09:23→17:22)
[2023-11-14] MEDS: QUEtiapine FUMARATE 100 MG TABLET PO ×2 (09:23→15:49)
[2023-11-14] MEDS: SUCRALFATE 1 GM TABLET PO (09:23)
[2023-11-14] MEDS: SPIRONOLACTONE 25 MG TABLET PO (09:23)
[2023-11-14] MEDS: TOLNAFTATE 1% POWDER 45 GM BTL 1 APPLIC TOPICAL ×2 (09:24→20:19)
[2023-11-14] MEDS: cefTRIAXone 2 GM/NS 100 ML 2 GM/100 ML BAG IVPB (12:17)
[2023-11-14] MEDS: QUEtiapine FUMARATE 100 MG TABLET 200 MG PO (20:19)
[2023-11-14] MEDS: SENNA/DOCUSATE SODIUM TABLET 1 TAB PO (20:19)
[2023-11-15] VITALS (12 sets, daily range): BP systolic 107–110; BP diastolic 38–51; PULSE 73–111; RESP 14–18; TEMP 35.9–37; O2SAT 95–100
[2023-11-15 05:06] LABS: Potassium 4.1 mmol/L (3.4-5.0)
[2023-11-15] MEDS: LEVOTHYROXINE SODIUM 75 MCG TABLET PO (05:52)
[2023-11-15] MEDS: PARoxetine 10 MG TABLET PO (08:31)
[2023-11-15] MEDS: BUMETANIDE INJ 1 MG/4 ML VIAL IV PUSH ×2 (08:31→16:54)
[2023-11-15] MEDS: guaiFENesin 12 HR 600 MG TABCR PO ×2 (08:31→21:10)
[2023-11-15] MEDS: POTASSIUM CHLORIDE 20 MEQ ER TABLET 40 MEQ PO ×2 (08:31→16:53)
[2023-11-15] MEDS: SPIRONOLACTONE 25 MG TABLET PO (08:31)
[2023-11-15] MEDS: EMPAGLIFLOZIN 10 MG TABLET PO (08:32)
[2023-11-15] MEDS: APIXABAN 5 MG TABLET PO ×2 (08:32→21:10)
[2023-11-15] MEDS: METOPROLOL TARTRATE 12.5 MG TABLET PO ×2 (08:32→21:10)
[2023-11-15] MEDS: PANTOPRAZOLE 40 MG TABLET PO ×2 (08:35→21:09)
[2023-11-15] MEDS: METOCLOPRAMIDE HCL 10 MG TABLET PO ×3 (08:35→16:53)
[2023-11-15] MEDS: MULTIVITAMINS THERAPEUTIC TAB (*BKC) 1 TABLET PO (08:35)
[2023-11-15] MEDS: SUCRALFATE 1 GM TABLET PO (08:35)
[2023-11-15] MEDS: DOXYCYCLINE HYCLATE 100 MG TABLET PO ×2 (08:35→21:10)
[2023-11-15] MEDS: lamoTRIgine 100 MG TABLET PO (08:35)
[2023-11-15] MEDS: busPIRone HCL 5 MG TABLET 15 MG PO ×3 (08:35→16:53)
[2023-11-15] MEDS: FERROUS SULFATE 325 MG TABLET DR PO (08:35)
[2023-11-15] MEDS: QUEtiapine FUMARATE 100 MG TABLET PO ×2 (08:35→14:31)
[2023-11-15] MEDS: TOLNAFTATE 1% POWDER 45 GM BTL 1 APPLIC TOPICAL ×2 (08:36→21:10)
[2023-11-15] MEDS: cefTRIAXone 2 GM/NS 100 ML 2 GM/100 ML BAG IVPB (12:16)
--- NOTE | 2023-11-15 16:19 | P.PNIM_ITS ---
Progress Note: A&P Assessment and Plan (1) Acute exacerbation of CHF (congestive heart failure): Qualifiers: Heart failure type: unspecified Qualified Code(s): I50.9 - Heart failure, unspecified Code(s): I50.9 - Heart failure, unspecified Status: Acute Assessment and Plan: * Continue diuresis (2) Bilateral edema of lower extremity: Code(s): R60.0 - Localized edema Status: Acute Assessment and Plan: * Chronic lymphedemia (3) Acute hypokalemia: Code(s): E87.6 - Hypokalemia Status: Acute Assessment and Plan: * Resolved (4) Acute kidney injury: Code(s): N17.9 - Acute kidney failure, unspecified Status: Acute Assessment and Plan: * / creatinine 1.4 (5) Cellulitis of right lower extremity: Code(s): L03.115 - Cellulitis of right lower limb Status: Acute Assessment and Plan: * Resolved * 4/6 d/c iv ceftriaxone Subjective Date/time seen: 11/15/23 16:19 Interval history: Breathing better. Denies pain. Feels weak and tired. Denied GI or issues. Tolerating diet. Review of Systems Review of Systems: All systems reviewed & are unremarkable except as noted in HPI and below Exam Narrative: GENERAL: Pleasant, in no acute distress. Morbid obesity - EYES: PERRL. Anicteric. - HENT: Moist mucous membranes. - LUNGS: Clear anteriorly. NL effort. - CARDIOVASCULAR: Regular rate and rhyth m. No murmur. No JVD. - ABDOMEN: BS+, Soft, non-tender and non -distended. No palpable masses. - EXTREMITIES: 4+ lower extremity non-p itting edema. Nontender. - NEUROLOGIC: CN II-XII grossly intact t o visual inspection. - PSYCHIATRIC: Awake, Alert and oriented x 3. Appropriate mood and affect. - SKIN: mild and fairly symmetric eryth maribel bilateral legs. Objective Data Vital Signs Vital Signs: Vital Signs - 24 hr 11/14/23 20:16 11/14/23 20:20 11/14/23 20:00 Temperature 98.2 F Pulse Rate 92 98 100 Respiratory Rate 20 Blood Pressure 108/37 L Pulse Oximetry 97 Oxygen Delivery 11/14/23 20:00 11/15/23 00:00 11/15/23 04:00 Temperature Pulse Rate 98 80 80 Respiratory Rate 20 Blood Pressure Pulse Oximetry 97 Oxygen Delivery Room Air 11/14/23 23:15 11/15/23 05:49 11/15/23 08:32 Temperature 96.6 F L Pulse Rate 77 73 87 Respiratory Rate 19 14 Blood Pressure 109/43 L Pulse Oximetry 98 100 Oxygen Delivery BiPAP 11/15/23 08:35 11/15/23 08:00 11/15/23 12:00 Temperature Pulse Rate 80 111 H Respiratory Rate Blood Pressure Pulse Oximetry Oxygen Delivery Room Air 11/15/23 14:00 Temperature 98.6 F Pulse Rate 85 Respiratory Rate 16 Blood Pressure 110/38 L Pulse Oximetry 97
--- NOTE | 2023-11-15 16:19 | PM.IMPN ---
Progress Note: A&P Assessment and Plan (1) Acute exacerbation of CHF (congestive heart failure): Qualifiers: Heart failure type: unspecified Qualified Code(s): I50.9 - Heart failure, unspecified Code(s): I50.9 - Heart failure, unspecified Status: Acute Assessment and Plan: Continue diuresis (2) Bilateral edema of lower extremity: Code(s): R60.0 - Localized edema Status: Acute Assessment and Plan: Chronic lymphedemia (3) Acute hypokalemia: Code(s): E87.6 - Hypokalemia Status: Acute Assessment and Plan: Resolved (4) Acute kidney injury: Code(s): N17.9 - Acute kidney failure, unspecified Status: Acute Assessment and Plan: 11/14 creatinine 1.4 (5) Cellulitis of right lower extremity: Code(s): L03.115 - Cellulitis of right lower limb Status: Acute Assessment and Plan: Resolved 11/14 d/c iv ceftriaxone Subjective Date/time seen: 11/15/23 16:19 Interval history: Breathing better. Denies pain. Feels weak and tired. Denied GI or issues. Tolerating diet. Review of Systems Review of Systems: All systems reviewed & are unremarkable except as noted in HPI and below Exam Narrative: GENERAL: Pleasant, in no acute distress. Morbid obesity - EYES: PERRL. Anicteric. - HENT: Moist mucous membranes. - LUNGS: Clear anteriorly. NL effort. - CARDIOVASCULAR: Regular rate and rhythm. No murmur. No JVD. - ABDOMEN: BS+, Soft, non-tender and non-distended. No palpable masses. - EXTREMITIES: 4+ lower extremity non-pitting edema. Nontender. - NEUROLOGIC: CN II-XII grossly intact to visual inspection. - PSYCHIATRIC: Awake, Alert and oriented x 3. Appropriate mood and affect. - SKIN: mild and fairly symmetric erythema bilateral legs. Objective Data Vital Signs Vital Signs: Vital Signs - 24 hr 11/14/23 20:16 11/14/23 20:20 11/14/23 20:00 Temperature 98.2 F Pulse Rate 92 98 100 Respiratory Rate 20 Blood Pressure 108/37 L Pulse Oximetry 97 Oxygen Delivery 11/14/23 20:00 11/15/23 00:00 11/15/23 04:00 Temperature Pulse Rate 98 80 80 Respiratory Rate 20 Blood Pressure Pulse Oximetry 97 Oxygen Delivery Room Air 11/14/23 23:15 11/15/23 05:49 11/15/23 08:32 Temperature 96.6 F L Pulse Rate 77 73 87 Respiratory Rate 19 14 Blood Pressure 109/43 L Pulse Oximetry 98 100 Oxygen Delivery BiPAP 11/15/23 08:35 11/15/23 08:00 11/15/23 12:00 Temperature Pulse Rate 80 111 H Respiratory Rate Blood Pressure Pulse Oximetry Oxygen Delivery Room Air 11/15/23 14:00 Temperature 98.6 F Pulse Rate 85 Respiratory Rate 16 Blood Pressure 110/38 L Pulse Oximetry 97 Oxygen Delivery Intake/Output Intake/Output: Intake & Output 11/12/23 11/13/23 11/14/23 11/15/23 23:59 23:59 23:59 23:59 Intake Total 1040 1200 1640 1120 Output Total 3600 4330 3300 2100 Balance -2560 -3130 -1660 -980 Meds/Results Medications: Active Medications Generic Name Dose Route Start Last Admin Trade Name Freq PRN Reason Stop Dose Admin Acetaminophen 650 mg 11/11/23 08:01 11/13/23 15:58 Acetaminophen 325 Mg Tablet PO 650 mg Q6H PRN Administration Mild Pain (1-3) Or Fever Albuterol 2.5 mg 11/11/23 08:31 Albuterol Sulfate Neb 2.5 Mg/3 Ml Inh INHALATION Q6HRT PRN Shortness Of Breath Amoxicillin/Clavulanate Potassium 1 tablet 11/16/23 09:00 Amoxicillin/Clavulanate K 875-125 Mg Tab PO Q12HR JEANE Apixaban 5 mg 11/11/23 09:00 11/15/23 08:32 Apixaban 5 Mg Tablet PO 5 mg Q12HR JEANE Administration Bumetanide 1 mg 11/13/23 17:00 11/15/23 08:31 Bumetanide Inj 1 Mg/4 Ml Vial IV PUSH 1 mg BID JEANE Administration Buspirone HCl 15 mg 11/11/23 09:00 11/15/23 12:09 Buspirone Hcl 5 Mg Tablet PO 15 mg TID JEANE Administration Doxycycline Hyclate 100 mg 11/11/23 21:00 11/15/23 08:35 Doxycycline
[2023-11-15] MEDS: QUEtiapine FUMARATE 100 MG TABLET 200 MG PO (21:10)
[2023-11-15] MEDS: SENNA/DOCUSATE SODIUM TABLET 1 TAB PO (21:10)
[2023-11-16] VITALS (10 sets, daily range): BP systolic 93–116; BP diastolic 29–43; PULSE 77–93; RESP 14–20; TEMP 36.2–36.6; O2SAT 90–99
[2023-11-16] MEDS: ACETAMINOPHEN 325 MG TABLET 650 MG PO (02:40)
[2023-11-16 05:38] LABS: Albumin Level 3.1 g/dL (3.5-5.1); Anion Gap 1 mmol/L (4-12); Blood Urea Nitrogen 25 mg/dL (7-17); Calcium 8.7 mg/dL (8.4-10.2); Carbon Dioxide 35 mmol/L (22-30); Chloride 105 mmol/L (98-107); Estimated CRCL calculation 77 ml/min; Estimated Glomerular Filt Rate 43; Glucose 116 mg/dL (65-110); Phosphorus 4.3 mg/dL (2.5-4.5); Sodium 141 mmol/L (137-145)
[2023-11-16] MEDS: LEVOTHYROXINE SODIUM 75 MCG TABLET PO (05:55)
[2023-11-16] MEDS: BUMETANIDE INJ 1 MG/4 ML VIAL IV PUSH ×2 (08:24→17:05)
[2023-11-16] MEDS: EMPAGLIFLOZIN 10 MG TABLET PO (08:24)
[2023-11-16] MEDS: PANTOPRAZOLE 40 MG TABLET PO ×2 (08:24→20:30)
[2023-11-16] MEDS: busPIRone HCL 5 MG TABLET 15 MG PO ×3 (08:25→17:06)
[2023-11-16] MEDS: METOCLOPRAMIDE HCL 10 MG TABLET PO ×3 (08:26→17:06)
[2023-11-16] MEDS: lamoTRIgine 100 MG TABLET PO (08:26)
[2023-11-16] MEDS: METOPROLOL TARTRATE 12.5 MG TABLET PO ×2 (08:26→20:30)
[2023-11-16] MEDS: AMOXICILLIN/CLAVULANATE K 875-125 MG TAB 1 TABLET PO ×2 (08:26→20:30)
[2023-11-16] MEDS: QUEtiapine FUMARATE 100 MG TABLET PO ×2 (08:27→14:17)
[2023-11-16] MEDS: POTASSIUM CHLORIDE 20 MEQ ER TABLET 40 MEQ PO ×2 (08:27→17:06)
[2023-11-16] MEDS: FERROUS SULFATE 325 MG TABLET DR PO (08:27)
[2023-11-16] MEDS: DOXYCYCLINE HYCLATE 100 MG TABLET PO ×2 (08:27→20:30)
[2023-11-16] MEDS: MULTIVITAMINS THERAPEUTIC TAB (*BKC) 1 TABLET PO (08:27)
[2023-11-16] MEDS: guaiFENesin 12 HR 600 MG TABCR PO (08:27)
[2023-11-16] MEDS: SPIRONOLACTONE 25 MG TABLET PO (08:27)
[2023-11-16] MEDS: SUCRALFATE 1 GM TABLET PO (08:27)
[2023-11-16] MEDS: PARoxetine 10 MG TABLET PO (08:27)
[2023-11-16] MEDS: APIXABAN 5 MG TABLET PO ×2 (08:27→20:30)
[2023-11-16] MEDS: TOLNAFTATE 1% POWDER 45 GM BTL 1 APPLIC TOPICAL ×2 (08:28→20:31)
--- NOTE | 2023-11-16 14:52 | P.PNIM_ITS ---
Progress Note: A&P Assessment and Plan (1) Acute exacerbation of CHF (congestive heart failure): Qualifiers: Heart failure type: unspecified Qualified Code(s): I50.9 - Heart failure, unspecified Code(s): I50.9 - Heart failure, unspecified Status: Acute Assessment and Plan: * Fluid balance since admission negative over 11 Liters * Continue diuresis * Likely back to [place] [facility] 11/16. (2) Bilateral edema of lower extremity: Code(s): R60.0 - Localized edema Status: Acute Assessment and Plan: * Chronic lymphedemia (3) Acute hypokalemia: Code(s): E87.6 - Hypokalemia Status: Acute Assessment and Plan: * Resolved (4) Acute kidney injury: Code(s): N17.9 - Acute kidney failure, unspecified Status: Acute Assessment and Plan: * 11/14 creatinine 1.4, 11/15 1.3 (5) Cellulitis of right lower extremity: Code(s): L03.115 - Cellulitis of right lower limb Status: Acute Assessment and Plan: * Resolved * 11/14 d/c iv ceftriaxone Subjective Date/time seen: 11/16/23 14:52 Interval history: Breathing better. Denies pain. Feels weak and tired. Denied GI or issues. Tolerating diet. Review of Systems Review of Systems: All systems reviewed & are unremarkable except as noted in HPI and below Exam Narrative: GENERAL: Pleasant, in no acute distress. Morbid obesity - EYES: PERRL. Anicteric. - HENT: Moist mucous membranes. - LUNGS: Clear anteriorly. NL effort. - CARDIOVASCULAR: Regular rate and rhyth m. No murmur. No JVD. - ABDOMEN: BS+, Soft, non-tender and non -distended. No palpable masses. - EXTREMITIES: 4+ lower extremity non-p itting edema. Nontender. - NEUROLOGIC: CN II-XII grossly intact t o visual inspection. - PSYCHIATRIC: Awake, Alert and oriented x 3. Appropriate mood and affect. - SKIN: mild and fairly symmetric eryth maribel bilateral legs. Objective Data Vital Signs Vital Signs: Vital Signs - 24 hr 11/15/23 16:00 11/15/23 21:08 11/15/23 21:10 Temperature 97.9 F Pulse Rate 80 83 92 Respiratory Rate 16 Blood Pressure 107/51 L Pulse Oximetry 96 Oxygen Delivery 11/15/23 20:00 11/15/23 20:00 11/16/23 00:00 Temperature Pulse Rate 92 85 87 Respiratory Rate 16 Blood Pressure Pulse Oximetry 96 Oxygen Delivery Room Air 11/15/23 22:55 11/16/23 04:00 11/16/23 02:40 Temperature Pulse Rate 84 77 78 Respiratory Rate 18 16 Blood Pressure Pulse Oximetry 95 97 Oxygen Delivery BiPAP BiPAP 11/16/23 05:52 11/16/23 08:26 11/16/23 08:25 Temperature 97.1 F L Pulse Rate 78 87 Respiratory Rate 14 Blood Pressure 93/32 L Pulse Oximetry 90 Oxygen Delivery Room Air Intake/Output Intake/Output:
--- NOTE | 2023-11-16 14:52 | PM.IMPN ---
Progress Note: A&P Assessment and Plan (1) Acute exacerbation of CHF (congestive heart failure): Qualifiers: Heart failure type: unspecified Qualified Code(s): I50.9 - Heart failure, unspecified Code(s): I50.9 - Heart failure, unspecified Status: Acute Assessment and Plan: Fluid balance since admission negative over 11 Liters Continue diuresis Likely back to [place] [facility] 11/16. (2) Bilateral edema of lower extremity: Code(s): R60.0 - Localized edema Status: Acute Assessment and Plan: Chronic lymphedemia (3) Acute hypokalemia: Code(s): E87.6 - Hypokalemia Status: Acute Assessment and Plan: Resolved (4) Acute kidney injury: Code(s): N17.9 - Acute kidney failure, unspecified Status: Acute Assessment and Plan: 11/14 creatinine 1.4, 11/15 1.3 (5) Cellulitis of right lower extremity: Code(s): L03.115 - Cellulitis of right lower limb Status: Acute Assessment and Plan: Resolved 11/14 d/c iv ceftriaxone Subjective Date/time seen: 11/16/23 14:52 Interval history: Breathing better. Denies pain. Feels weak and tired. Denied GI or issues. Tolerating diet. Review of Systems Review of Systems: All systems reviewed & are unremarkable except as noted in HPI and below Exam Narrative: GENERAL: Pleasant, in no acute distress. Morbid obesity - EYES: PERRL. Anicteric. - HENT: Moist mucous membranes. - LUNGS: Clear anteriorly. NL effort. - CARDIOVASCULAR: Regular rate and rhythm. No murmur. No JVD. - ABDOMEN: BS+, Soft, non-tender and non-distended. No palpable masses. - EXTREMITIES: 4+ lower extremity non-pitting edema. Nontender. - NEUROLOGIC: CN II-XII grossly intact to visual inspection. - PSYCHIATRIC: Awake, Alert and oriented x 3. Appropriate mood and affect. - SKIN: mild and fairly symmetric erythema bilateral legs. Objective Data Vital Signs Vital Signs: Vital Signs - 24 hr 11/15/23 16:00 11/15/23 21:08 11/15/23 21:10 Temperature 97.9 F Pulse Rate 80 83 92 Respiratory Rate 16 Blood Pressure 107/51 L Pulse Oximetry 96 Oxygen Delivery 11/15/23 20:00 11/15/23 20:00 11/16/23 00:00 Temperature Pulse Rate 92 85 87 Respiratory Rate 16 Blood Pressure Pulse Oximetry 96 Oxygen Delivery Room Air 11/15/23 22:55 11/16/23 04:00 11/16/23 02:40 Temperature Pulse Rate 84 77 78 Respiratory Rate 18 16 Blood Pressure Pulse Oximetry 95 97 Oxygen Delivery BiPAP BiPAP 11/16/23 05:52 11/16/23 08:26 11/16/23 08:25 Temperature 97.1 F L Pulse Rate 78 87 Respiratory Rate 14 Blood Pressure 93/32 L Pulse Oximetry 90 Oxygen Delivery Room Air Intake/Output Intake/Output: Intake & Output 11/13/23 11/14/23 11/15/23 11/16/23 23:59 23:59 23:59 23:59 Intake Total 1200 1640 2000 880 Output Total 4330 3300 3700 1200 Balance -3130 -1660 -1700 -320 Meds/Results Medications: Active Medications Generic Name Dose Route Start Last Admin Trade Name Freq PRN Reason Stop Dose Admin Acetaminophen 650 mg 11/11/23 08:01 11/16/23 02:40 Acetaminophen 325 Mg Tablet PO 650 mg Q6H PRN Administration Mild Pain (1-3) Or Fever Albuterol 2.5 mg 11/11/23 08:31 Albuterol Sulfate Neb 2.5 Mg/3 Ml Inh INHALATION Q6HRT PRN Shortness Of Breath Amoxicillin/Clavulanate Potassium 1 tablet 11/16/23 09:00 11/16/23 08:26 Amoxicillin/Clavulanate K 875-125 Mg Tab PO 1 tablet Q12HR JEANE Administration Apixaban 5 mg 11/11/23 09:00 11/16/23 08:27 Apixaban 5 Mg Tablet PO 5 mg Q12HR JEANE Administration Bumetanide 1 mg 11/13/23 17:00 11/16/23 08:24 Bumetanide Inj 1 Mg/4 Ml Vial IV PUSH 1 mg BID JEANE Administration Buspirone HCl 15 mg 11/11/23 09:00 11/16/23 12:12 Buspirone Hcl 5 Mg Tablet PO 15 mg TID JEANE Administration Doxycycline Hyclate 100 mg 11/11/23 21:00 11/16/23 08:27 Doxyc
[2023-11-16] MEDS: BENZONATATE 100 MG CAPSULE PO (17:35)
[2023-11-16] MEDS: SENNA/DOCUSATE SODIUM TABLET 1 TAB PO (20:30)
[2023-11-16] MEDS: QUEtiapine FUMARATE 100 MG TABLET 200 MG PO (20:31)
[2023-11-17 02:50] VITALS: RESP 16
[2023-11-17 04:27] VITALS: BP 102/49; PULSE 83; RESP 18; TEMP 36.3; O2SAT 100
[2023-11-17] MEDS: LEVOTHYROXINE SODIUM 75 MCG TABLET PO (05:28)
[2023-11-17 06:13] LABS: Albumin Level 3.1 g/dL (3.5-5.1); Anion Gap 1 mmol/L (4-12); Blood Urea Nitrogen 27 mg/dL (7-17); Calcium 8.7 mg/dL (8.4-10.2); Carbon Dioxide 35 mmol/L (22-30); Chloride 104 mmol/L (98-107); Estimated CRCL calculation 72 ml/min; Estimated Glomerular Filt Rate 40; Glucose 104 mg/dL (65-110); Phosphorus 4.8 mg/dL (2.5-4.5); Potassium 4.2 mmol/L (3.4-5.0); Sodium 140 mmol/L (137-145)
[2023-11-17 08:58] VITALS: BP 120/54
[2023-11-17] MEDS: busPIRone HCL 5 MG TABLET 15 MG PO (08:58)
[2023-11-17] MEDS: PANTOPRAZOLE 40 MG TABLET PO (08:59)
[2023-11-17] MEDS: APIXABAN 5 MG TABLET PO (08:59)
[2023-11-17] MEDS: MULTIVITAMINS THERAPEUTIC TAB (*BKC) 1 TABLET PO (08:59)
[2023-11-17] MEDS: EMPAGLIFLOZIN 10 MG TABLET PO (08:59)
[2023-11-17] MEDS: POTASSIUM CHLORIDE 20 MEQ ER TABLET 40 MEQ PO (08:59)
[2023-11-17] MEDS: PARoxetine 10 MG TABLET PO (08:59)
[2023-11-17] MEDS: DOXYCYCLINE HYCLATE 100 MG TABLET PO (08:59)
[2023-11-17] MEDS: AMOXICILLIN/CLAVULANATE K 875-125 MG TAB 1 TABLET PO (08:59)
[2023-11-17] MEDS: FERROUS SULFATE 325 MG TABLET DR PO (08:59)
[2023-11-17] MEDS: SPIRONOLACTONE 25 MG TABLET PO (08:59)
[2023-11-17] MEDS: BUMETANIDE INJ 1 MG/4 ML VIAL IV PUSH (08:59)
[2023-11-17] MEDS: METOCLOPRAMIDE HCL 10 MG TABLET PO (08:59)
[2023-11-17] MEDS: QUEtiapine FUMARATE 100 MG TABLET PO (08:59)
[2023-11-17] MEDS: lamoTRIgine 100 MG TABLET PO (08:59)
[2023-11-17] MEDS: SUCRALFATE 1 GM TABLET PO (08:59)
[2023-11-17] MEDS: TOLNAFTATE 1% POWDER 45 GM BTL 1 APPLIC TOPICAL (09:00)
[2023-11-17 09:01] VITALS: PULSE 99
[2023-11-17] MEDS: METOPROLOL TARTRATE 12.5 MG TABLET PO (09:01)
[2023-11-17] MEDS: BENZONATATE 100 MG CAPSULE PO (09:11)
--- NOTE | 2023-11-17 14:12 | PCNWS ---
Weekly nutritional screen. Patient is tolerating current diet with adequate intake. No weight loss reported. No nutritional needs at this time.
--- NOTE | 2023-11-17 15:04 | PC.NURSE ---
RN called [facility] to give report. The phone rang several times and then turned to a busy line. RN will call again
[2023-11-17 15:42] LABS: SARS-CoV-2 RNA PCR Negative (Negative)
--- NOTE | 2023-11-17 16:28 | PM.DS ---
DS: Admitting Diagnosis Discharge Date 11/17/23 Admitting Diagnosis CHF exacerbation DS: Discharge Diagnosis Discharge Diagnosis (1) Cellulitis of right lower extremity: Code(s): L03.115 - Cellulitis of right lower limb Status: Acute (2) Acute hypokalemia: Code(s): E87.6 - Hypokalemia Status: Acute (3) Acute exacerbation of CHF (congestive heart failure): Qualifiers: Heart failure type: unspecified Qualified Code(s): I50.9 - Heart failure, unspecified Code(s): I50.9 - Heart failure, unspecified Status: Acute (4) Bilateral edema of lower extremity: Code(s): R60.0 - Localized edema Status: Acute (5) Acute kidney injury: Code(s): N17.9 - Acute kidney failure, unspecified Status: Acute (6) Acute exacerbation of CHF (congestive heart failure): Qualifiers: Heart failure type: unspecified Qualified Code(s): I50.9 - Heart failure, unspecified Code(s): I50.9 - Heart failure, unspecified Status: Acute DS: Summary Hospital Course Reason for hospitalization: dyspnea, CHF exacerbation Hospital Course: Patient is a 48-year-old female with possible history of morbid obese, obesity hypoventilation syndrome, type 2 diabetes, essential hypertension, hypothyroidism, chronic lymphedema, paroxysmal atrial fibrillation presents to the ED from [facility] with dyspnea. Patient was found to have fluid overload and was diuresed with IV Bumex. She was hospitalized in 11/10 to 11/16. she was recently hospitalized in September and October with fluid overload and her home Bumex symptoms slowly uptitrated from 2 mg daily to 2 mg a day and 1 mg at night. Increased to 2 mg b.i.d. Bumex. her weight on admission was 185 kg with baseline being around 170 kg. Through hospitalization she had a net -13 L. she was transitioned back to p.o. Bumex at discharge. Creatinine possibly new baseline 1.4, was previously 1.00 03/2023. Patient was also found to have cellulitis right lower extremity was placed on Rocephin, completing antibiotic course by discharge. Status at Discharge Cognitive/behavioral status at discharge: baseline Time Spent with Patient Time attestation: Total time spent providing and/or coordinating discharge services: 40 minutes Exam Narrative: - GENERAL: Pleasant morbidly obese woman in no acute distress. Well-nourished. - EYES: EOMI. Anicteric. - HENT: Moist mucous membranes. - LUNGS: Clear to auscultation bilaterally, no wheezing, rhonchi, or rales. - CARDIOVASCULAR: Regular rate and rhythm. No murmur. No JVD. - ABDOMEN: Soft, non-tender and non-distended. No palpable masses. - EXTREMITIES: 3+ edema. Peripheral pulses 2+. Non-tender. - NEUROLOGIC: No focal neurological deficits. CN II-XII grossly intact. - PSYCHIATRIC: Awake, Alert and oriented x 3. Appropriate mood and affect. - SKIN: No rashes or lesions. Warm. - LYMPH: No cervical lymphadenopathy. DS: Data Data Completed and Pending Labs on day of discharge: Labs from last 24 hours 11/17/23 11/17/23 14:57 05:34 Sodium 140 Potassium 4.2 Chloride 104 Carbon Dioxide 35 H Anion Gap 1 L BUN 27 H Creatinine 1.40 H Estim Creat Clear Calc 72 Estimated GFR 40 L Glucose 104 Calcium 8.7 Phosphorus 4.8 H Albumin 3.1 L SARS-CoV-2 RNA (RT-PCR) Negative Discharge Plan Discharge Attending physician on discharge: Lacey Cruz Discharging Clinician: Lacey Cruz Anticipated Discharge Date/Time: 11/17/23 12:10 Patient Disposition: [facility] Activity: may shower Diet: heart healthy Discharge Instructions: you have completed antibiotics. Please continue home Bumex And monitor daily weight. please follow-up with your PCP for ongoing management of heart failure and fluid management. Patient Instructions: Antibiotic Form, Apixaban (By mouth), Heart Failure (GEN) Patient Language: Engl
== END 2023-11-17 15:10 | DRG 291 ==
LOC: ANHED 20:20 → ANH3MEDSUR 20:52 → ANH3MED 21:05
PROVIDERS: Hospitalist; Internal Medicine; Student in an Organized Health Care Education/Training Program; Admitting Provider Internal Medicine; Emergency Provider Emergency Medicine; PCP Family Medicine; Visit Provider Student in an Organized Health Care Education/Training Program
DX: I13.0 Hypertensive heart and chronic kidney disease with heart failure and stage 1 through stage 4 chronic kidney disease, or unspecified chronic kidney disease (principal); I50.33 Acute on chronic diastolic (congestive) heart failure; L03.115 Cellulitis of right lower limb; J96.10 Chronic respiratory failure, unspecified whether with hypoxia or hypercapnia; E66.2 Morbid (severe) obesity with alveolar hypoventilation; Z68.45 Body mass index [BMI] 70 or greater, adult; N17.9 Acute kidney failure, unspecified; E11.22 Type 2 diabetes mellitus with diabetic chronic kidney disease; N18.30 Chronic kidney disease, stage 3 unspecified; Z20.822 Contact with and (suspected) exposure to COVID-19; E03.9 Hypothyroidism, unspecified; K58.0 Irritable bowel syndrome with diarrhea; I48.0 Paroxysmal atrial fibrillation; L40.9 Psoriasis, unspecified; G25.81 Restless legs syndrome; E53.8 Deficiency of other specified B group vitamins; E55.9 Vitamin D deficiency, unspecified; E11.42 Type 2 diabetes mellitus with diabetic polyneuropathy; Z90.49 Acquired absence of other specified parts of digestive tract; E87.6 Hypokalemia
CPT/HCPCS: 36415; 36600; 71045; 80048; 80053; 80069; 82805; 82948; 83735; 83880; 84132; 84484; 85025; 85027; 85610; 85730; 87635; 87637; 93005; 94002; 94003; 97110; 97161; 97165; 97530; 97535; 99285; A9270; J0696; J1939; J1940

== ENCOUNTER 2023-12-02 17:35 | Inpatient (IN) | payer MEDICARE, SELFPAY ==
[2023-12-02] VITALS (20 sets, daily range): BP systolic 125–164; BP diastolic 49–82; PULSE 95–131; RESP 13–26; TEMP 36.4; O2SAT 92–100; BMI 71.4
--- NOTE | ~2023-12-02 | XR_ITS ---
EXAMINATION: XR chest 1V portable Exam Date/Time: 12/02/2023 18:12 CDT HISTORY: palpitations, SOB Comparison: 11/10/2023. RESULT: Lines, tubes, and devices: None. Lungs and pleura: Mild diffuse reticular opacities. Cardiomediastinal silhouette: Stable. Other: No acute osseous or upper abdominal finding. IMPRESSION: Mild interstitial edema. Reviewed, dictated and finalized at location K. IMPRESSION: Mild interstitial edema.
--- NOTE | ~2023-12-02 | XR_ITS ---
EXAMINATION: XR chest 1V portable DATE: 12/07/2023 13:24 INDICATION: Dyspnea. Cough. TECHNIQUE: A single frontal view of the chest was obtained. COMPARISON: Chest view 12/02/2023 FINDINGS: There is a diffuse interstitial pattern in the lungs, consistent with mild pulmonary edema. No pleural effusion or pneumothorax. Cardiomegaly is noted. IMPRESSION: 1. Mild pulmonary edema. 2. Cardiomegaly. Reviewed, dictated and finalized at location E.
--- NOTE | ~2023-12-02 | XR_ITS ---
XR chest 1V portable 12/12/2023 15:37 Indication: Shortness of breath Procedure: AP portable chest Comparison: Comparison to multiple prior studies sequentially, with oldest reviewed study dated 08/2023. Findings: Cardiomegaly with interstitial edema. No pleural effusion. No pneumothorax. No acute osseou s abnormality. Impression: 1: Cardiomegaly with interstitial edema. Reviewed, dictated and finalized at location B. Impression: 1: Cardiomegaly with interstitial edema.
--- NOTE | ~2023-12-02 | XR_ITS ---
EXAMINATION: XR chest 1V portable Exam Date/Time: 12/09/2023 17:00 CDT HISTORY: dyspnea Comparison: 12/07/2023. RESULT: Lines, tubes, and devices: None. Lungs and pleura: Moderate diffuse reticular opacities, indistinct vascular margins. Streaky bilater al lower lung opacities. Left costophrenic angle blunting. Cardiomediastinal silhouette: Stable. Other: No acute osseous or upper abdominal finding. IMPRESSION: Pulmonary opacities likely represent moderate interstitial edema and bibasilar scar/atelectasis. Infe ction not excluded. Likely small left pleural effusion. Reviewed, dictated and finalized at location K. IMPRESSION: Pulmonary opacities likely represent moderate interstitial edema and bibasilar scar/atelectasis. Infection not excluded. Likely small left pleural effusion.
--- NOTE | 2023-12-02 17:47 | ECG_ITS ---
SEE SCANNED COPY FOR CONFIRMED REPORT MTDD
[2023-12-02 17:56] LABS: Basophils Percent Auto 0.4 % (0.2-1.2); Eosinophils Percent Auto 0.1 % (0-4.4); Hematocrit 33.2 % (37.0-47.0); Hemoglobin 10.2 g/dL (12.0-15.0); Immature Granulocyte Absolute 0.03 K/mm3 (0.00-0.031); Immature Granulocyte Percent A 0.4 % (0-0.5); Lymphocytes Absolute Auto 0.82 K/mm3 (0.9-3.2); Lymphocytes Percent Auto 9.9 % (18.3-44.2); Mean Corpuscular HGB Conc 30.7 g/dl (32-36); Mean Corpuscular Volume 87.8 fl (80-100); Mean Platelet Volume 9.6 fl (7.4-10.4); Monocytes Absolute Auto 0.7 K/mm3 (0.1-0.6); Monocytes Percent Auto 7.9 % (2.6-8.5); Neutrophils Absolute Auto 6.7 K/mm3 (1.3-6.7); Neutrophils Percent Auto 81.3 % (45.5-73.1); Platelet Count Result 190 k/mm3 (150-375); Red Blood Count 3.78 M/mm3 (4.2-5.4); Red Cell Distribution Width 17.5 % (11.5-14.5); White Blood Count 8.3 K/mm3 (4.5-10.0)
[2023-12-02 18:07] LABS: Alanine Aminotransferase 27 U/L (6-35); Albumin Level 3.9 g/dL (3.5-5.1); Alkaline Phosphatase 133 U/L (38-126); Anion Gap 7 mmol/L (4-12); Aspartate Amino Transferase 51 U/L (14-36); Blood Urea Nitrogen 28 mg/dL (7-17); Carbon Dioxide 28 mmol/L (22-30); Chloride 101 mmol/L (98-107); Estimated CRCL calculation 73 ml/min; Estimated Glomerular Filt Rate 40; Glucose 136 mg/dL (65-110); Lipase 57 U/L (23-300); Potassium 4.7 mmol/L (3.4-5.0); Sodium 136 mmol/L (137-145)
[2023-12-02 18:15] LABS: INR 1.5; Prothrombin Time 19.1 Seconds (11.1-14.7)
[2023-12-02 18:16] LABS: Partial Thromboplastin Time 39.9 Seconds (22.3-36.8)
[2023-12-02 18:18] LABS: Troponin I < 0.012 ng/mL (0.000-0.034)
[2023-12-02 19:53] LABS: NT Pro B Type Natriuretic Pept 2110 pg/mL (19.9-100)
[2023-12-02] MEDS: dilTIAZem 100 MG/100 ML 100 MG/100 ML BAG IV CONT (20:17)
[2023-12-02] MEDS: dilTIAZem HCl INJ 25 MG/5 ML VIAL 10 MG IV PUSH (20:18)
--- NOTE | 2023-12-02 20:42 | ED.ARRPALP ---
HPI - Arrhythmia/Palpitations General Chief Complaint: Arrhythmia/Palpitations Stated Complaint: weakness Time Seen by Provider: 12/02/23 19:11 History of Present Illness HPI narrative: Patient is a 48-year-old female who presents to the emergency department this evening secondary to atrial fibrillation with RVR. EMS was initially called for lift assist upon their arrival at the patient's home, patient was lowered from the toilet to the ground and placed on the monitor and at that time it was noted the patient was AFib with RVR. Patient was then brought our facility for further evaluation. Patient was recently discharged from our facility after hospitalization for CHF exacerbation and fluid overload. Patient admits that throughout the past 24 hours she has been experiencing worsening shortness of breath and generalized weakness. She is currently denying any chest pain, denies any recent falls or trauma and denies any fevers. Patient has no additional concerns at this time. Related Data Home Medications Medication Instructions Recorded Confirmed levothyroxine 75 mcg tablet 75 mcg PO DAILY 03/14/23 11/10/23 Daily Multivitamin 1 tablet PO DAILY 09/23/23 11/10/23 acetaminophen 325 mg tablet 650 mg PO Q6H PRN Mild Pain (1-3) 09/23/23 11/10/23 Or Fever metoprolol tartrate 12.5 mg PO BID 09/23/23 11/10/23 sucralfate 1 gram tablet 1 g PO DAILY 09/23/23 11/10/23 albuterol sulfate 2.5 mg/0.5 mL 2.5 mg inhalation Q6H PRN 10/23/23 11/10/23 solution for nebulization Shortness Of Breath bumetanide 2 mg tablet 2 mg PO BID 10/23/23 11/10/23 buspirone 15 mg tablet 15 mg PO TID 10/23/23 11/10/23 ferrous sulfate 325 mg (65 mg 325 mg PO DAILY 10/23/23 11/10/23 iron) capsule,extended release metoclopramide HCl 10 mg tablet 10 mg PO TID 10/23/23 11/10/23 pantoprazole 40 mg tablet,delayed 40 mg PO BID 10/23/23 11/10/23 release paroxetine HCl 10 mg tablet 10 mg PO QAM 10/23/23 11/10/23 potassium chloride 20 mEq 40 meq PO BID 10/23/23 11/10/23 tablet,extended release sennosides 8.6 mg-docusate sodium 1 tab-cap PO HS 10/23/23 11/10/23 50 mg tablet (Senna Plus) spironolactone 25 mg tablet 12.5 mg PO DAILY 10/23/23 11/10/23 aloe vera 1 applic topical BID 11/10/23 11/10/23 miconazole nitrate 2 % topical 1 applic topical BID 11/10/23 11/10/23 powder Allergies Allergy/AdvReac Type Severity Reaction Status Date / Time Sulfa (Sulfonamide Allergy Mild HIVES, Verified 11/10/23 18:38 Antibiotics) SWELLING sulfamethoxazole Allergy Mild HIVES, Verified 11/10/23 18:38 SWELLING sulfamethizole Allergy Unknown Hives Verified 11/10/23 18:38 trimethoprim Allergy Unknown Hives Verified 11/10/23 18:38 Review of Systems Review of Systems: All systems are reviewed and are negative unless stated otherwise in the HPI. PMFSH Past Medical History Medical History Anxiety CHF (congestive heart failure), NYHA class I Chronic respiratory failure requiring treatment with nocturnal BPAP by mask Essential (primary) hypertension H/O adenomatous polyp of colon Hypertension associated with diabetes Hypothyroidism, unspecified Idiopathic peripheral neuropathy Irritable bowel syndrome with diarrhea Lymphedema of both lower extremities Magnesium deficiency Moderate major depression Morbid obesity Paroxysmal A-fib Psoriasis Restless leg syndrome Stasis dermatitis Type 2 diabetes mellitus without complications Vitamin B12 deficiency Vitamin D deficiency Surgical History Surgical History H/O arthroscopic knee surgery H/O section X1 H/O dilation and curettage History of tonsillectomy and adenoidectomy Hx of cholecystectomy Family History Family History Mother Hypertension Sibling Hypertension Family history of congestive heart failure Other Family history of art
--- NOTE | 2023-12-02 21:33 | PM.IMHP ---
H&P: HPI History of Present Illness Date/Time: 12/02/23 21:33 Chief Complaint: fall Narrative: This is a 48-year-old female with past medical history significant for morbid obesity patient was brought to the emergency room after EMS was called to her home for a lift assist patient could not stand up from sitting position on her toilet she was noted to have a normal heart rate which was consistent with atrial fibrillation with rapid ventricular response. Patient just recently discharged from [facility] treated for acute congestive heart failure exacerbation and cellulitis of lower extremity. Patient was found to have atrial fibrillation with rapid ventricular response in emergency room placed on diltiazem drip admitted to IMU for further evaluation management and treatment. Review of Systems Review of Systems: Fatigue, generalized weakness Constitutional: Constitutional: Denies chills, Reports fatigue, Denies fever(s) and Reports weakness Eyes: Eyes: Denies change in vision ENT: Denies dysphagia and Denies odynophagia Cardiovascular: Cardiovascular: Denies chest pain, Denies syncope, Denies lightheadedness, Denies radiating jaw, neck or arm pain, Denies palpitations and Reports dyspnea Respiratory: Respiratory: Denies chest congestion and Denies cough Gastrointestinal: Gastrointestinal: Denies abdominal pain, Denies dyspepsia, Denies diarrhea, Denies nausea and Denies vomiting Genitourinary: Genitourinary: Denies dysuria Musculoskeletal: Musculoskeletal: Reports back pain Integumentary/Breasts: Skin/Breast: Reports erythema and Reports skin swelling Neurologic: Denies focal weakness and Denies Sensory deficit (Neuro) Psychiatric: Psychiatric: Reports no additional psychiatric complaints and Reports as per HPI Endocrine: Endocrine: Denies cold intolerance, Denies heat intolerance, Denies polyphagia, Denies polydipsia, Denies polyuria and Denies palpitations Hematologic/Lymphatic: Hematologic/Lymphatic: Reports no additional hematologic/lymphatic complaints and Reports as per HPI Allergic/Immunologic: Allergic/Immunologic: Reports no additional allergic/immunologic complaints and Reports as per HPI PMFSH Past Medical History Medical History Anxiety CHF (congestive heart failure), NYHA class I Chronic respiratory failure requiring treatment with nocturnal BPAP by mask Essential (primary) hypertension H/O adenomatous polyp of colon Hypertension associated with diabetes Hypothyroidism, unspecified Idiopathic peripheral neuropathy Irritable bowel syndrome with diarrhea Lymphedema of both lower extremities Magnesium deficiency Moderate major depression Morbid obesity Paroxysmal A-fib Psoriasis Restless leg syndrome Stasis dermatitis Type 2 diabetes mellitus without complications Vitamin B12 deficiency Vitamin D deficiency Surgical History Surgical History H/O arthroscopic knee surgery H/O section X1 H/O dilation and curettage History of tonsillectomy and adenoidectomy Hx of cholecystectomy Family History Family History Mother Hypertension Sibling Hypertension Family history of congestive heart failure Other Family history of arthritis Social History Social History Social History: Prior to her recent hospitalizations she lives alone. She had 1 child. She is single and disabled. Code status: Full code Smoking status: Never smoker Second hand tobacco smoke exposure: No Alcohol intake: never Substance use: never Substance use type: does not use Do You Feel Safe in your Home?: Yes Lack of Transportation: YES Lack of Food: Sometimes True Current Housing: I Have Housing Concerned About Future Housing: No Difficulty Paying Gas/Elect
[2023-12-02 21:44] LABS: Troponin I < 0.012 ng/mL (0.000-0.034)
--- NOTE | 2023-12-02 22:24 | PC.NURSE ---
pt has audible wheezes but declines any breathing treatment because they state this is their baseline breathing
--- NOTE | 2023-12-02 22:50 | ADMGEN ---
This patient, Peg Nicole, was admitted to IMU Room 209-01. Patient/family oriented to hospital policies and general routines including ID bracelet, bed and alarms, visiting hours, pain management, procedures, bathroom and other care routines, personal items, smoking policy, room service/diet, and visiting hours. Information on how to activate the Rapid Response Team has been discussed. Patient/Family are encouraged to report perceived risks to care and to ask questions if they do not understand what they are told or what they should do.
[2023-12-03] VITALS (35 sets, daily range): BP systolic 122–156; BP diastolic 44–69; PULSE 75–123; RESP 18–26; TEMP 36.2–37.2; O2SAT 90–99
[2023-12-03 00:58] LABS: Troponin I < 0.012 ng/mL (0.000-0.034)
--- NOTE | 2023-12-03 08:51 | PC.NURSE ---
informed Alexander Corey NP of pt's uncontrolled heart rate into the 140's while on Cardizem drip at 5mg/hr. New order to increase Cardizem drip to 15mg/hr
[2023-12-03] MEDS: dilTIAZem 100 MG/100 ML 100 MG/100 ML BAG 15 MG IV CONT ×3 (09:51→22:06)
[2023-12-03] MEDS: TOLNAFTATE 1% POWDER 45 GM BTL 1 APPLIC TOPICAL ×3 (09:53→20:31)
[2023-12-03] MEDS: BUMETANIDE 1 MG TABLET 2 MG PO ×2 (12:31→16:52)
[2023-12-03] MEDS: busPIRone HCL 5 MG TABLET 15 MG PO ×2 (12:31→16:52)
[2023-12-03] MEDS: METOPROLOL TARTRATE 25 MG TABLET PO ×2 (12:32→20:28)
[2023-12-03] MEDS: lamoTRIgine 100 MG TABLET PO (12:32)
[2023-12-03] MEDS: EMPAGLIFLOZIN 10 MG TABLET PO (12:32)
[2023-12-03] MEDS: APIXABAN 5 MG TABLET PO ×2 (12:32→20:29)
[2023-12-03] MEDS: QUEtiapine FUMARATE 100 MG TABLET PO (14:25)
--- NOTE | 2023-12-03 15:44 | PM.IMPN ---
Progress Note: A&P Assessment and Plan (1) Atrial fibrillation with RVR: Code(s): I48.91 - Unspecified atrial fibrillation Status: Acute Assessment and Plan: Atrial fibrillation with rapid ventricular rate, history of AFib. Does not appear to be in acute CHF exacerbation. Cardizem drip increased, oral metoprolol increased (2) Gait abnormality: Code(s): R26.9 - Unspecified abnormalities of gait and mobility Status: Acute Assessment and Plan: Patient could not ambulate/stand up after using the commode at home which prompted EMS call the found her in AFib RVR PT and OT consulted (3) GERD (gastroesophageal reflux disease): Code(s): K21.9 - Gastro-esophageal reflux disease without esophagitis Status: Chronic Assessment and Plan: Chronic, continue home medication (4) Morbid obesity with BMI of 70 and over, adult: Code(s): E66.01 - Morbid (severe) obesity due to excess calories; Z68.45 - Body mass index [BMI] 70 or greater, adult Status: Chronic (5) Chronic respiratory failure requiring treatment with nocturnal BPAP by mask: Code(s): J96.10 - Chronic respiratory failure, unspecified whether with hypoxia or hypercapnia; Z99.89 - Dependence on other enabling machines and devices Status: Chronic Assessment and Plan: Patient reports compliance with BiPAP, home unit at bedside for use at night and when sleeping (6) CHF (congestive heart failure), NYHA class I: Code(s): I50.9 - Heart failure, unspecified Status: Chronic Assessment and Plan: Chronic, does not appear to be in an acute exacerbation at this time Time Spent With Patient Time with patient: Greater than 35 minutes Subjective Date/time seen: 12/03/23 15:44 Interval history: Patient admitted for AFib RVR on a Cardizem drip which had to be increased to 15 milligrams/hour. Also increased metoprolol to 25 mg q.12 from 12.5 q.12 at home. Patient has only been out of rehab/fpc for 1 week was unable to get up off the toilet at home and her legs went to sleep. She is concerned about mobility progress. Denies difficulty breathing but has abnormal sound being breathing due to prior tracheostomy which is currently closed. Patient reports that her lower extremities are as swollen as usual but she does not difficulty breathing like she usually does with CHF exacerbations. Review of Systems Review of Systems: Fatigue, generalized weakness All systems reviewed & are unremarkable except as noted in HPI and below Exam Narrative: patient is laying in bed Const: General: comfortable, no acute distress, well developed, alert, awake, ill appearing chronically and obese Nutritional Appearance: obese morbidly obese Orientation/consciousness: patient oriented x3 HENMT: Head: normal to inspection, normocephalic and atraumatic Ears: hearing grossly normal bilaterally Face/Nose/Sinus: normal facial exam Face and sinus: normal facial exam Eyes: General: appearance normal, both eyes and all related structures Pupils: Equal, round and reactive pupils present EOM: EOMs intact bilaterally Neck: Neck: full ROM, no lymphadenopathy and no JVD Thyroid: thyroid normal Lymphatic: no lymphadenopathy noted Resp: Effort & Inspection: normal respiratory effort and able to speak in complete sentences Auscultation: clear to auscultation bilaterally Other: Noisy upper airway breathing due to prior tracheostomy with skin closure Cardio: Jugular venous distension: no JVD Rate: tachycardic Rhythm: abnormal rhythm (Atrial fibrillation on bedside equipment monitor phototypesetting) irregularly irregular Heart sounds: S1 normal heart sound present and S2 normal heart sound present GI: Inspection: Pannus present and obesity GI Palp: Yes Soft to palpation and Yes No hepatosplenomegaly present : General: Yes deferred Urinary Catheter: Urinary Catheter: other (External PureWick in place) Skin:
[2023-12-03] MEDS: PANTOPRAZOLE 40 MG TABLET PO (16:52)
[2023-12-03] MEDS: POTASSIUM CHLORIDE 20 MEQ ER TABLET 40 MEQ PO (16:53)
[2023-12-03] MEDS: SENNA/DOCUSATE SODIUM TABLET 1 TAB PO (20:30)
[2023-12-03] MEDS: QUEtiapine FUMARATE 100 MG TABLET 200 MG PO (20:30)
[2023-12-03] MEDS: guaiFENesin 12 HR 600 MG TABCR PO (20:30)
[2023-12-03] MEDS: ALBUTEROL SULFATE NEB 2.5 MG/3 ML INH INHALATION (22:09)
[2023-12-04] VITALS (33 sets, daily range): BP systolic 120–153; BP diastolic 47–61; PULSE 73–94; RESP 20–28; TEMP 36.2–36.8; O2SAT 81–98
[2023-12-04 04:32] LABS: Basophils Percent Auto 0.6 % (0.2-1.2); Eosinophils Absolute Auto 0.2 K/mm3 (0-0.3); Hematocrit 30.6 % (37.0-47.0); Hemoglobin 9.1 g/dL (12.0-15.0); Immature Granulocyte Absolute 0.01 K/mm3 (0.00-0.031); Immature Granulocyte Percent A 0.2 % (0-0.5); Lymphocytes Absolute Auto 1.14 K/mm3 (0.9-3.2); Lymphocytes Percent Auto 17.9 % (18.3-44.2); Mean Corpuscular HGB Conc 29.7 g/dl (32-36); Mean Corpuscular Volume 90.8 fl (80-100); Mean Platelet Volume 10.1 fl (7.4-10.4); Monocytes Absolute Auto 0.7 K/mm3 (0.1-0.6); Monocytes Percent Auto 10.2 % (2.6-8.5); Neutrophils Absolute Auto 4.3 K/mm3 (1.3-6.7); Neutrophils Percent Auto 68.1 % (45.5-73.1); Platelet Count Result 161 k/mm3 (150-375); Red Blood Count 3.37 M/mm3 (4.2-5.4); Red Cell Distribution Width 17.7 % (11.5-14.5); White Blood Count 6.4 K/mm3 (4.5-10.0)
[2023-12-04 04:46] LABS: Alanine Aminotransferase 20 U/L (6-35); Albumin Level 3.3 g/dL (3.5-5.1); Alkaline Phosphatase 104 U/L (38-126); Anion Gap 3 mmol/L (4-12); Aspartate Amino Transferase 39 U/L (14-36); Bilirubin,Total 0.8 mg/dL (0.2-1.3); Blood Urea Nitrogen 23 mg/dL (7-17); Calcium 8.3 mg/dL (8.4-10.2); Carbon Dioxide 33 mmol/L (22-30); Chloride 101 mmol/L (98-107); Estimated CRCL calculation 71 ml/min; Estimated Glomerular Filt Rate 40; Glucose 145 mg/dL (65-110); Magnesium 2.5 mg/dL (1.6-2.3); Potassium 3.4 mmol/L (3.4-5.0); Sodium 137 mmol/L (137-145)
[2023-12-04] MEDS: dilTIAZem 100 MG/100 ML 100 MG/100 ML BAG 15 MG IV CONT (04:54)
[2023-12-04] MEDS: LEVOTHYROXINE SODIUM 75 MCG TABLET PO (04:56)
[2023-12-04] MEDS: ALBUTEROL SULFATE NEB 2.5 MG/3 ML INH INHALATION ×2 (08:38→20:08)
[2023-12-04] MEDS: dilTIAZem HCL CD 300 MG CAP.24HR PO (10:20)
[2023-12-04] MEDS: busPIRone HCL 5 MG TABLET 15 MG PO ×3 (10:20→17:37)
[2023-12-04] MEDS: MULTIVITAMINS THERAPEUTIC TAB (*BKC) 1 TABLET PO (10:20)
[2023-12-04] MEDS: EMPAGLIFLOZIN 10 MG TABLET PO (10:20)
[2023-12-04] MEDS: APIXABAN 5 MG TABLET PO ×2 (10:21→21:17)
[2023-12-04] MEDS: SUCRALFATE 1 GM TABLET PO (10:21)
[2023-12-04] MEDS: lamoTRIgine 100 MG TABLET PO (10:21)
[2023-12-04] MEDS: METOPROLOL TARTRATE 25 MG TABLET PO ×2 (10:21→21:17)
[2023-12-04] MEDS: FERROUS SULFATE 325 MG TABLET DR BY MOUTH (10:21)
[2023-12-04] MEDS: PARoxetine 10 MG TABLET PO (10:21)
[2023-12-04] MEDS: SPIRONOLACTONE 12.5 MG TABLET PO (10:21)
[2023-12-04] MEDS: QUEtiapine FUMARATE 100 MG TABLET PO ×2 (10:21→15:34)
[2023-12-04] MEDS: TOLNAFTATE 1% POWDER 45 GM BTL 1 APPLIC TOPICAL ×4 (10:22→21:17)
[2023-12-04] MEDS: BUMETANIDE 1 MG TABLET 2 MG PO ×2 (10:22→15:34)
[2023-12-04] MEDS: POTASSIUM CHLORIDE 20 MEQ ER TABLET 40 MEQ PO ×2 (10:22→17:37)
--- NOTE | 2023-12-04 10:36 | PM.IMPN ---
Progress Note: A&P Assessment and Plan (1) Atrial fibrillation with RVR: Code(s): I48.91 - Unspecified atrial fibrillation Status: Acute Assessment and Plan: Atrial fibrillation with rapid ventricular rate, history of AFib. Does not appear to be in acute CHF exacerbation. Cardizem drip increased, oral metoprolol increased 12/03: Patient remains stable on diltiazem 15 milligrams/hour on drip overnight. Ordered diltiazem 300 mg oral and discontinue drip. (2) Gait abnormality: Code(s): R26.9 - Unspecified abnormalities of gait and mobility Status: Acute Assessment and Plan: Patient could not ambulate/stand up after using the commode at home which prompted EMS call the found her in AFib RVR PT and OT consulted (3) GERD (gastroesophageal reflux disease): Code(s): K21.9 - Gastro-esophageal reflux disease without esophagitis Status: Chronic Assessment and Plan: Chronic, continue home medication (4) Morbid obesity with BMI of 70 and over, adult: Code(s): E66.01 - Morbid (severe) obesity due to excess calories; Z68.45 - Body mass index [BMI] 70 or greater, adult Status: Chronic (5) Chronic respiratory failure requiring treatment with nocturnal BPAP by mask: Code(s): J96.10 - Chronic respiratory failure, unspecified whether with hypoxia or hypercapnia; Z99.89 - Dependence on other enabling machines and devices Status: Chronic Assessment and Plan: Patient reports compliance with BiPAP, home unit at bedside for use at night and when sleeping 12/03: Patient on BiPAP this morning for evaluation (6) CHF (congestive heart failure), NYHA class I: Code(s): I50.9 - Heart failure, unspecified Status: Chronic Assessment and Plan: Chronic, does not appear to be in an acute exacerbation at this time 12/03: Shortness of breath likely due to splenic CHF exacerbation. Additional dose of spironolactone today as her potassium and also dropped. Time Spent With Patient Time with patient: Greater than 35 minutes Subjective Date/time seen: 12/04/23 10:36 Interval history: Patient complained feeling short breath today. She is also upset that we cannot find a large recliner chair for her because she usually sleeps in chair at home. Patient reports that she is feeling weaker and weaker. She was also very anxious this morning. Review of Systems Review of Systems: Fatigue, generalized weakness slightly short of breath and anxious All systems reviewed & are unremarkable except as noted in HPI and below Exam Narrative: patient is laying in bed Const: General: comfortable, no acute distress, well developed, alert, awake, ill appearing chronically and obese Nutritional Appearance: obese morbidly obese Orientation/consciousness: patient oriented x3 HENMT: Head: normal to inspection, normocephalic and atraumatic Ears: hearing grossly normal bilaterally Face/Nose/Sinus: normal facial exam Face and sinus: normal facial exam Eyes: General: appearance normal, both eyes and all related structures Pupils: Equal, round and reactive pupils present EOM: EOMs intact bilaterally Neck: Neck: full ROM, no lymphadenopathy and no JVD Thyroid: thyroid normal Lymphatic: no lymphadenopathy noted Resp: Effort & Inspection: normal respiratory effort and able to speak in complete sentences Auscultation: clear to auscultation bilaterally Other: Noisy upper airway breathing due to prior tracheostomy with skin closure Cardio: Jugular venous distension: no JVD Rate: regular rate and tachycardic Rhythm: regular rhythm and abnormal rhythm (Atrial fibrillation on bedside surgery scheduling coordinator) irregularly irregular Heart sounds: S1 normal heart sound present and S2 normal heart sound present GI: Inspection: Pannus present and obesity : General: Yes deferred Urinary Catheter: Urinary Catheter: other (External PureWick in place) Skin: Rashes: no
[2023-12-04] MEDS: SPIRONOLACTONE 25 MG TABLET PO (11:25)
--- NOTE | 2023-12-04 15:00 | PCPTNOTE ---
Attempted PT evaluation, per RN pt too anxious/SOB and recommended therapy return at later time. Will follow.
[2023-12-04] MEDS: PANTOPRAZOLE 40 MG TABLET PO (17:37)
[2023-12-04] MEDS: ACETAMINOPHEN 325 MG TABLET 650 MG PO (17:39)
[2023-12-04] MEDS: SENNA/DOCUSATE SODIUM TABLET 1 TAB PO (21:17)
[2023-12-04] MEDS: BENZONATATE 100 MG CAPSULE PO (21:17)
[2023-12-04] MEDS: guaiFENesin 12 HR 600 MG TABCR PO (21:17)
[2023-12-04] MEDS: QUEtiapine FUMARATE 100 MG TABLET 200 MG PO (21:17)
[2023-12-05] VITALS (28 sets, daily range): BP systolic 114–153; BP diastolic 46–59; PULSE 70–98; RESP 16–27; TEMP 36.5–37.3; O2SAT 92–99
[2023-12-05 04:40] LABS: Basophils Percent Auto 0.4 % (0.2-1.2); Eosinophils Absolute Auto 0.1 K/mm3 (0-0.3); Eosinophils Percent Auto 1.1 % (0-4.4); Hematocrit 29.1 % (37.0-47.0); Hemoglobin 8.5 g/dL (12.0-15.0); Immature Granulocyte Absolute 0.03 K/mm3 (0.00-0.031); Immature Granulocyte Percent A 0.4 % (0-0.5); Lymphocytes Absolute Auto 0.86 K/mm3 (0.9-3.2); Lymphocytes Percent Auto 10.5 % (18.3-44.2); Mean Corpuscular HGB Conc 29.2 g/dl (32-36); Mean Corpuscular Hemoglobin 26.9 pg (26-34); Mean Corpuscular Volume 92.1 fl (80-100); Mean Platelet Volume 10.1 fl (7.4-10.4); Monocytes Absolute Auto 0.7 K/mm3 (0.1-0.6); Monocytes Percent Auto 8.2 % (2.6-8.5); Neutrophils Absolute Auto 6.5 K/mm3 (1.3-6.7); Neutrophils Percent Auto 79.4 % (45.5-73.1); Platelet Count Result 157 k/mm3 (150-375); Red Blood Count 3.16 M/mm3 (4.2-5.4); Red Cell Distribution Width 17.2 % (11.5-14.5); White Blood Count 8.2 K/mm3 (4.5-10.0)
[2023-12-05 04:55] LABS: Alanine Aminotransferase 18 U/L (6-35); Albumin Level 3.2 g/dL (3.5-5.1); Alkaline Phosphatase 100 U/L (38-126); Anion Gap 1 mmol/L (4-12); Aspartate Amino Transferase 27 U/L (14-36); Bilirubin,Total 0.9 mg/dL (0.2-1.3); Blood Urea Nitrogen 22 mg/dL (7-17); Calcium 8.2 mg/dL (8.4-10.2); Carbon Dioxide 33 mmol/L (22-30); Chloride 102 mmol/L (98-107); Estimated CRCL calculation 71 ml/min; Estimated Glomerular Filt Rate 40; Glucose 152 mg/dL (65-110); Magnesium 2.5 mg/dL (1.6-2.3); Potassium 3.8 mmol/L (3.4-5.0); Sodium 136 mmol/L (137-145)
[2023-12-05] MEDS: LEVOTHYROXINE SODIUM 75 MCG TABLET PO (06:25)
[2023-12-05] MEDS: ALBUTEROL SULFATE NEB 2.5 MG/3 ML INH INHALATION ×3 (09:00→20:11)
--- NOTE | 2023-12-05 09:08 | PM.IMPN ---
Progress Note: A&P Assessment and Plan (1) Atrial fibrillation with RVR: Code(s): I48.91 - Unspecified atrial fibrillation Status: Acute Assessment and Plan: Atrial fibrillation with rapid ventricular rate, history of AFib. Does not appear to be in acute CHF exacerbation. Cardizem drip increased, oral metoprolol increased 12/03: Patient remains stable on diltiazem 15 milligrams/hour on drip overnight. Ordered diltiazem 300 mg oral and discontinue drip. 12/04: Stable rate on oral diltiazem and metoprolol (2) Gait abnormality: Code(s): R26.9 - Unspecified abnormalities of gait and mobility Status: Acute Assessment and Plan: Patient could not ambulate/stand up after using the commode at home which prompted EMS call the found her in AFib RVR PT and OT consulted (3) GERD (gastroesophageal reflux disease): Code(s): K21.9 - Gastro-esophageal reflux disease without esophagitis Status: Chronic Assessment and Plan: Chronic, continue home medication (4) Chronic respiratory failure requiring treatment with nocturnal BPAP by mask: Code(s): J96.10 - Chronic respiratory failure, unspecified whether with hypoxia or hypercapnia; Z99.89 - Dependence on other enabling machines and devices Status: Chronic Assessment and Plan: Patient reports compliance with BiPAP, home unit at bedside for use at night and when sleeping 12/03: Patient on BiPAP this morning for evaluation (5) CHF (congestive heart failure), NYHA class I: Code(s): I50.9 - Heart failure, unspecified Status: Chronic Assessment and Plan: Chronic, does not appear to be in an acute exacerbation at this time 12/03: Shortness of breath likely due to splenic CHF exacerbation. Additional dose of spironolactone today as her potassium and also dropped. 12/04: No crackles noted but patient subjectively short of breath and remains on BiPap throughout the day. (6) Morbid obesity with BMI of 70 and over, adult: Code(s): E66.01 - Morbid (severe) obesity due to excess calories; Z68.45 - Body mass index [BMI] 70 or greater, adult Status: Chronic Time Spent With Patient Time with patient: Greater than 35 minutes Subjective Date/time seen: 12/05/23 09:08 Interval history: Patient up to chair, still on BiPap with complaints of difficulty breathing. Review of Systems Review of Systems: Fatigue, generalized weakness slightly short of breath and anxious All systems reviewed & are unremarkable except as noted in HPI and below Exam Const: General: comfortable, no acute distress, well developed, alert, awake, ill appearing chronically and obese Nutritional Appearance: obese morbidly obese Orientation/consciousness: patient oriented x3 HENMT: Head: normal to inspection, normocephalic and atraumatic Ears: hearing grossly normal bilaterally Face/Nose/Sinus: normal facial exam Face and sinus: normal facial exam Eyes: General: appearance normal, both eyes and all related structures Pupils: Equal, round and reactive pupils present EOM: EOMs intact bilaterally Neck: Neck: full ROM, no lymphadenopathy and no JVD Thyroid: thyroid normal Lymphatic: no lymphadenopathy noted Resp: Effort & Inspection: normal respiratory effort and able to speak in complete sentences Auscultation: clear to auscultation bilaterally Other: Noisy upper airway breathing due to prior tracheostomy with skin closure Cardio: Jugular venous distension: no JVD Rate: regular rate Rhythm: abnormal rhythm (Atrial fibrillation on bedside compliance monitor) irregularly irregular Heart sounds: S1 normal heart sound present and S2 normal heart sound present GI: Inspection: Pannus present and obesity : General: Yes deferred Urinary Catheter: Urinary Catheter: other (External PureWick in place) Skin: Rashes: no rashes Wounds: no wounds Neuro: General: patient oriented x3, CN's II-XI intact bilaterally and U
[2023-12-05] MEDS: busPIRone HCL 5 MG TABLET 15 MG PO ×3 (09:31→16:14)
[2023-12-05] MEDS: lamoTRIgine 100 MG TABLET PO (09:31)
[2023-12-05] MEDS: PARoxetine 10 MG TABLET PO (09:31)
[2023-12-05] MEDS: METOPROLOL TARTRATE 25 MG TABLET PO ×2 (09:31→20:03)
[2023-12-05] MEDS: POTASSIUM CHLORIDE 20 MEQ ER TABLET 40 MEQ PO ×2 (09:32→16:15)
[2023-12-05] MEDS: SPIRONOLACTONE 12.5 MG TABLET PO (09:32)
[2023-12-05] MEDS: SUCRALFATE 1 GM TABLET PO (09:32)
[2023-12-05] MEDS: BENZONATATE 100 MG CAPSULE PO ×3 (09:32→16:13)
[2023-12-05] MEDS: QUEtiapine FUMARATE 100 MG TABLET PO ×2 (09:32→16:13)
[2023-12-05] MEDS: APIXABAN 5 MG TABLET PO ×2 (09:32→20:05)
[2023-12-05] MEDS: guaiFENesin 12 HR 600 MG TABCR PO ×2 (09:32→20:04)
[2023-12-05] MEDS: BUMETANIDE 1 MG TABLET 2 MG PO ×2 (09:32→16:14)
[2023-12-05] MEDS: FERROUS SULFATE 325 MG TABLET DR BY MOUTH (09:32)
[2023-12-05] MEDS: PANTOPRAZOLE 40 MG TABLET PO ×2 (09:32→16:15)
[2023-12-05] MEDS: dilTIAZem HCL CD 300 MG CAP.24HR PO (09:32)
[2023-12-05] MEDS: EMPAGLIFLOZIN 10 MG TABLET PO (09:32)
[2023-12-05] MEDS: TOLNAFTATE 1% POWDER 45 GM BTL 1 APPLIC TOPICAL ×4 (09:33→20:31)
[2023-12-05] MEDS: MULTIVITAMINS THERAPEUTIC TAB (*BKC) 1 TABLET PO (09:33)
[2023-12-05] MEDS: QUEtiapine FUMARATE 100 MG TABLET 200 MG PO (20:05)
[2023-12-05] MEDS: SENNA/DOCUSATE SODIUM TABLET 1 TAB PO (20:05)
[2023-12-05] MEDS: ACETAMINOPHEN 325 MG TABLET 650 MG PO (20:06)
[2023-12-06] VITALS (23 sets, daily range): BP systolic 121–139; BP diastolic 53–70; PULSE 73–90; RESP 18–24; TEMP 36.3–36.8; O2SAT 93–100; BMI 10.0
[2023-12-06] MEDS: ALBUTEROL SULFATE NEB 2.5 MG/3 ML INH INHALATION ×3 (01:47→14:30)
[2023-12-06 04:51] LABS: Basophils Percent Auto 0.3 % (0.2-1.2); Eosinophils Absolute Auto 0.2 K/mm3 (0-0.3); Eosinophils Percent Auto 3.1 % (0-4.4); Hematocrit 27.5 % (37.0-47.0); Hemoglobin 8.1 g/dL (12.0-15.0); Immature Granulocyte Absolute 0.03 K/mm3 (0.00-0.031); Immature Granulocyte Percent A 0.5 % (0-0.5); Lymphocytes Absolute Auto 0.97 K/mm3 (0.9-3.2); Mean Corpuscular HGB Conc 29.5 g/dl (32-36); Mean Corpuscular Hemoglobin 26.9 pg (26-34); Mean Corpuscular Volume 91.4 fl (80-100); Mean Platelet Volume 9.9 fl (7.4-10.4); Monocytes Absolute Auto 0.6 K/mm3 (0.1-0.6); Monocytes Percent Auto 9.9 % (2.6-8.5); Neutrophils Absolute Auto 4.6 K/mm3 (1.3-6.7); Neutrophils Percent Auto 71.2 % (45.5-73.1); Platelet Count Result 149 k/mm3 (150-375); Red Blood Count 3.01 M/mm3 (4.2-5.4); Red Cell Distribution Width 17.6 % (11.5-14.5); White Blood Count 6.5 K/mm3 (4.5-10.0)
[2023-12-06 05:04] LABS: Alanine Aminotransferase 16 U/L (6-35); Albumin Level 3.2 g/dL (3.5-5.1); Alkaline Phosphatase 97 U/L (38-126); Anion Gap 4 mmol/L (4-12); Aspartate Amino Transferase 25 U/L (14-36); Bilirubin,Total 1.1 mg/dL (0.2-1.3); Blood Urea Nitrogen 24 mg/dL (7-17); Calcium 8.2 mg/dL (8.4-10.2); Carbon Dioxide 33 mmol/L (22-30); Chloride 100 mmol/L (98-107); Estimated CRCL calculation 71 ml/min; Estimated Glomerular Filt Rate 40; Glucose 143 mg/dL (65-110); Magnesium 2.4 mg/dL (1.6-2.3); Potassium 3.7 mmol/L (3.4-5.0); Sodium 137 mmol/L (137-145)
[2023-12-06 05:13] LABS: Hypochromasia 1+; Platelet Estimate Adequate (Adequate)
[2023-12-06 05:14] LABS: Ovalocytes 1+; Schistocytes None Seen
[2023-12-06] MEDS: LEVOTHYROXINE SODIUM 75 MCG TABLET PO (06:42)
[2023-12-06] MEDS: APIXABAN 5 MG TABLET PO ×2 (09:22→20:15)
[2023-12-06] MEDS: PANTOPRAZOLE 40 MG TABLET PO ×2 (09:22→16:05)
[2023-12-06] MEDS: MULTIVITAMINS THERAPEUTIC TAB (*BKC) 1 TABLET PO (09:23)
[2023-12-06] MEDS: guaiFENesin 12 HR 600 MG TABCR PO ×2 (09:23→20:14)
[2023-12-06] MEDS: BUMETANIDE 1 MG TABLET 2 MG PO ×2 (09:23→16:05)
[2023-12-06] MEDS: FERROUS SULFATE 325 MG TABLET DR BY MOUTH (09:23)
[2023-12-06] MEDS: BENZONATATE 100 MG CAPSULE PO ×3 (09:23→16:06)
[2023-12-06] MEDS: QUEtiapine FUMARATE 100 MG TABLET PO ×2 (09:23→16:06)
[2023-12-06] MEDS: POTASSIUM CHLORIDE 20 MEQ ER TABLET 40 MEQ PO ×2 (09:23→16:05)
[2023-12-06] MEDS: EMPAGLIFLOZIN 10 MG TABLET PO (09:23)
[2023-12-06] MEDS: lamoTRIgine 100 MG TABLET PO (09:23)
[2023-12-06] MEDS: PARoxetine 10 MG TABLET PO (09:23)
[2023-12-06] MEDS: SUCRALFATE 1 GM TABLET PO (09:23)
[2023-12-06] MEDS: dilTIAZem HCL CD 300 MG CAP.24HR PO (09:24)
[2023-12-06] MEDS: busPIRone HCL 5 MG TABLET 15 MG PO ×3 (09:24→16:06)
[2023-12-06] MEDS: METOPROLOL TARTRATE 25 MG TABLET PO ×2 (09:24→20:16)
[2023-12-06] MEDS: TOLNAFTATE 1% POWDER 45 GM BTL 1 APPLIC TOPICAL ×4 (09:25→20:16)
[2023-12-06] MEDS: SPIRONOLACTONE 25 MG TABLET PO (09:28)
[2023-12-06] MEDS: FUROSEMIDE INJ 40 MG/4 ML VIAL IV PUSH ×2 (11:08→16:05)
--- NOTE | 2023-12-06 11:18 | PM.IMPN ---
Progress Note: A&P Assessment and Plan (1) Atrial fibrillation with RVR: Code(s): I48.91 - Unspecified atrial fibrillation Status: Acute Assessment and Plan: Atrial fibrillation with rapid ventricular rate, history of AFib. Does not appear to be in acute CHF exacerbation. Cardizem drip increased, oral metoprolol increased 12/03: Patient remains stable on diltiazem 15 milligrams/hour on drip overnight. Ordered diltiazem 300 mg oral and discontinue drip. 12/04: Stable rate on oral diltiazem and metoprolol 12/05: Continues to remain stable on oral diltiazem and metoprolol. May downgrade out of IMU. (2) Gait abnormality: Code(s): R26.9 - Unspecified abnormalities of gait and mobility Status: Acute Assessment and Plan: Patient could not ambulate/stand up after using the commode at home which prompted EMS call the found her in AFib RVR PT and OT consulted 12/05: Needs further motivation to participate with therapy (3) GERD (gastroesophageal reflux disease): Code(s): K21.9 - Gastro-esophageal reflux disease without esophagitis Status: Chronic Assessment and Plan: Chronic, continue home medication (4) Chronic respiratory failure requiring treatment with nocturnal BPAP by mask: Code(s): J96.10 - Chronic respiratory failure, unspecified whether with hypoxia or hypercapnia; Z99.89 - Dependence on other enabling machines and devices Status: Chronic Assessment and Plan: Patient reports compliance with BiPAP, home unit at bedside for use at night and when sleeping 12/03: Patient on BiPAP this morning for evaluation 12/05: Remains on BiPAP per patient request, slight crackles throughout the lungs. Increase diuresis today. (5) CHF (congestive heart failure), NYHA class I: Code(s): I50.9 - Heart failure, unspecified Status: Chronic Assessment and Plan: Chronic, does not appear to be in an acute exacerbation at this time 12/03: Shortness of breath likely due to splenic CHF exacerbation. Additional dose of spironolactone today as her potassium and also dropped. 12/04: No crackles noted but patient subjectively short of breath and remains on BiPap throughout the day. 12/05: Remains on BiPAP per patient request, slight crackles throughout the lungs. Increase diuresis today. (6) Morbid obesity with BMI of 70 and over, adult: Code(s): E66.01 - Morbid (severe) obesity due to excess calories; Z68.45 - Body mass index [BMI] 70 or greater, adult Status: Chronic Plan Increased diuresis today. Downgrade out of IMU. The patient will require SNF/[facility] placement as she is not able to ambulate well enough to return home alone at this time. She will require significantly more therapy for strengthening. Time Spent With Patient Time with patient: Greater than 35 minutes Subjective Date/time seen: 12/06/23 11:18 Interval history: Patient examined in the morning still on BiPAP since overnight. Crackles in the lungs are more audible. Intake and output seems to be fairly balanced. Will escalate diuresis today. Heart rate normal, remains atrial fibrillation telemetry monitoring. Blood pressure stable. Downgrade from IMU to [facility]). Review of Systems Review of Systems: Fatigue, generalized weakness slightly short of breath and anxious All systems reviewed & are unremarkable except as noted in HPI and below Exam Narrative: GENERAL: Morbidly obese, wearing BiPAP without active respiratory distress HEAD: Normocephalic, atraumatic. ENT:? Mucous membranes moist. CHEST: Crackles throughout.? No respiratory distress. BiPAP in place per patient preference HEART: Regular rate and irregular rhythm. ? Normal peripheral pulses. Atrial fibrillation rate of 82 bedside telemetry per my interpretation ABDOMEN: Soft, nontender, obese. Pure wick in place EXTREMITIES: Normal range of motion. Bilateral lower extremity lymphedema stable SKIN
--- NOTE | 2023-12-06 17:54 | PC.NURSE ---
This patient, Peg Nicole, was transferred to [[address] [place] [address] ] on 12/06/23 at 1754. Personal belongings sent with patient. Report given to [FORD Velasco ]. Appropriate documentation sent with patient.
[2023-12-06] MEDS: QUEtiapine FUMARATE 100 MG TABLET 200 MG PO (20:15)
[2023-12-06] MEDS: SENNA/DOCUSATE SODIUM TABLET 1 TAB PO (20:15)
[2023-12-07] VITALS (22 sets, daily range): BP systolic 130–142; BP diastolic 54–60; PULSE 66–96; RESP 17–22; TEMP 36.3–36.6; O2SAT 94–99
[2023-12-07] MEDS: ALBUTEROL SULFATE NEB 2.5 MG/3 ML INH INHALATION ×4 (02:52→21:11)
[2023-12-07 06:18] LABS: Basophils Percent Auto 0.3 % (0.2-1.2); Eosinophils Absolute Auto 0.2 K/mm3 (0-0.3); Eosinophils Percent Auto 2.8 % (0-4.4); Hematocrit 28.2 % (37.0-47.0); Hemoglobin 8.1 g/dL (12.0-15.0); Immature Granulocyte Absolute 0.01 K/mm3 (0.00-0.031); Immature Granulocyte Percent A 0.1 % (0-0.5); Lymphocytes Absolute Auto 0.74 K/mm3 (0.9-3.2); Lymphocytes Percent Auto 10.8 % (18.3-44.2); Mean Corpuscular HGB Conc 28.7 g/dl (32-36); Mean Corpuscular Hemoglobin 26.7 pg (26-34); Mean Corpuscular Volume 93.1 fl (80-100); Mean Platelet Volume 9.7 fl (7.4-10.4); Monocytes Absolute Auto 0.6 K/mm3 (0.1-0.6); Neutrophils Absolute Auto 5.4 K/mm3 (1.3-6.7); Platelet Count Result 154 k/mm3 (150-375); Red Blood Count 3.03 M/mm3 (4.2-5.4); Red Cell Distribution Width 17.4 % (11.5-14.5); White Blood Count 6.9 K/mm3 (4.5-10.0)
[2023-12-07 06:29] LABS: Alanine Aminotransferase 17 U/L (6-35); Albumin Level 3.3 g/dL (3.5-5.1); Alkaline Phosphatase 102 U/L (38-126); Anion Gap 3 mmol/L (4-12); Aspartate Amino Transferase 25 U/L (14-36); Bilirubin,Total 1.1 mg/dL (0.2-1.3); Blood Urea Nitrogen 26 mg/dL (7-17); Calcium 8.7 mg/dL (8.4-10.2); Carbon Dioxide 36 mmol/L (22-30); Chloride 100 mmol/L (98-107); Estimated CRCL calculation 77 ml/min; Estimated Glomerular Filt Rate 43; Glucose 137 mg/dL (65-110); Magnesium 2.3 mg/dL (1.6-2.3); Potassium 3.6 mmol/L (3.4-5.0); Sodium 139 mmol/L (137-145)
[2023-12-07] MEDS: LEVOTHYROXINE SODIUM 75 MCG TABLET PO (06:31)
[2023-12-07 06:48] LABS: Platelet Estimate Adequate (Adequate)
[2023-12-07 06:58] LABS: Anisocytosis 1+; Hypochromasia 1+; Schistocytes None Seen
[2023-12-07] MEDS: APIXABAN 5 MG TABLET PO ×2 (09:17→20:44)
[2023-12-07] MEDS: MULTIVITAMINS THERAPEUTIC TAB (*BKC) 1 TABLET PO (09:17)
[2023-12-07] MEDS: busPIRone HCL 5 MG TABLET 15 MG PO ×3 (09:18→16:51)
[2023-12-07] MEDS: METOPROLOL TARTRATE 25 MG TABLET PO ×2 (09:18→20:44)
[2023-12-07] MEDS: SUCRALFATE 1 GM TABLET PO (09:19)
[2023-12-07] MEDS: BENZONATATE 100 MG CAPSULE PO ×3 (09:19→16:51)
[2023-12-07] MEDS: SPIRONOLACTONE 25 MG TABLET PO (09:19)
[2023-12-07] MEDS: FERROUS SULFATE 325 MG TABLET DR BY MOUTH (09:19)
[2023-12-07] MEDS: POTASSIUM CHLORIDE 20 MEQ ER TABLET 40 MEQ PO ×2 (09:19→16:51)
[2023-12-07] MEDS: QUEtiapine FUMARATE 100 MG TABLET PO ×2 (09:19→15:29)
[2023-12-07] MEDS: EMPAGLIFLOZIN 10 MG TABLET PO (09:19)
[2023-12-07] MEDS: lamoTRIgine 100 MG TABLET PO (09:20)
[2023-12-07] MEDS: PANTOPRAZOLE 40 MG TABLET PO ×2 (09:20→16:51)
[2023-12-07] MEDS: guaiFENesin 12 HR 600 MG TABCR PO ×2 (09:20→20:44)
[2023-12-07] MEDS: PARoxetine 10 MG TABLET PO (09:20)
[2023-12-07] MEDS: TOLNAFTATE 1% POWDER 45 GM BTL 1 APPLIC TOPICAL ×4 (09:20→20:45)
[2023-12-07] MEDS: dilTIAZem HCL CD 300 MG CAP.24HR PO (09:48)
[2023-12-07] MEDS: BUMETANIDE 1 MG TABLET 2 MG PO ×2 (09:49→16:51)
--- NOTE | 2023-12-07 10:40 | PM.IMPN ---
Progress Note: A&P Assessment and Plan (1) Atrial fibrillation with RVR: Code(s): I48.91 - Unspecified atrial fibrillation Status: Acute Assessment and Plan: Atrial fibrillation with rapid ventricular rate, history of AFib. Does not appear to be in acute CHF exacerbation. Cardizem drip increased, oral metoprolol increased 12/03: Patient remains stable on diltiazem 15 milligrams/hour on drip overnight. Ordered diltiazem 300 mg oral and discontinue drip. 12/04: Stable rate on oral diltiazem and metoprolol 12/05: Continues to remain stable on oral diltiazem and metoprolol. May downgrade out of IMU. 12/06: atrial fibrillation rate of 73 monitoring engineer per interpretation, stable on oral diltiazem and metoprolol. (2) Gait abnormality: Code(s): R26.9 - Unspecified abnormalities of gait and mobility Status: Acute Assessment and Plan: Patient could not ambulate/stand up after using the commode at home which prompted EMS call the found her in AFib RVR PT and OT consulted 12/05: Needs further motivation to participate with therapy (3) GERD (gastroesophageal reflux disease): Code(s): K21.9 - Gastro-esophageal reflux disease without esophagitis Status: Chronic Assessment and Plan: Chronic, continue home medication (4) Chronic respiratory failure requiring treatment with nocturnal BPAP by mask: Code(s): J96.10 - Chronic respiratory failure, unspecified whether with hypoxia or hypercapnia; Z99.89 - Dependence on other enabling machines and devices Status: Chronic Assessment and Plan: Patient reports compliance with BiPAP, home unit at bedside for use at night and when sleeping 12/03: Patient on BiPAP this morning for evaluation 12/05: Remains on BiPAP per patient request, slight crackles throughout the lungs. Increase diuresis today. (5) CHF (congestive heart failure), NYHA class I: Code(s): I50.9 - Heart failure, unspecified Status: Chronic Assessment and Plan: Chronic, does not appear to be in an acute exacerbation at this time 12/03: Shortness of breath likely due to splenic CHF exacerbation. Additional dose of spironolactone today as her potassium and also dropped. 12/04: No crackles noted but patient subjectively short of breath and remains on BiPap throughout the day. 12/05: Remains on BiPAP per patient request, slight crackles throughout the lungs. Increase diuresis today. 12/06: Crackles noted. Continue increased diuresis. (6) Morbid obesity with BMI of 70 and over, adult: Code(s): E66.01 - Morbid (severe) obesity due to excess calories; Z68.45 - Body mass index [BMI] 70 or greater, adult Status: Chronic Plan -Continue increased diuresis today. -The patient will require SNF/residential placement as she is not able to ambulate well enough to return home alone at this time. -She will require significantly more therapy for strengthening. Time Spent With Patient Time with patient: Greater than 35 minutes Subjective Date/time seen: 12/07/23 10:40 Interval history: Patient reports not feeling well today. She reports a cough. Patient was also informed that her weight had changed over 20 kg. On examination she does not appear to be retaining that much fluid however we will continue with increased diuresis. Ordered chest x-ray due to cough and not feeling well. Heart rate has remained normal, still in atrial fibrillation on awake overnight monitor. Review of Systems Review of Systems: All systems reviewed & are unremarkable except as noted in HPI and below Exam Narrative: GENERAL: Morbidly obese, wearing BiPAP without active respiratory distress HEAD: Normocephalic, atraumatic. ENT:? Mucous membranes moist. CHEST: Crackles throughout.? No respiratory distress. BiPAP in place per patient preference HEART: Regular rate and irregular rhythm. ? Normal peripheral pulses. Atrial fibrillation rate of 82 bedside telem
[2023-12-07] MEDS: FUROSEMIDE INJ 40 MG/4 ML VIAL IV PUSH ×2 (12:46→16:52)
[2023-12-07] MEDS: QUEtiapine FUMARATE 100 MG TABLET 200 MG PO (20:44)
[2023-12-07] MEDS: SENNA/DOCUSATE SODIUM TABLET 1 TAB PO (20:44)
[2023-12-08] VITALS (21 sets, daily range): BP systolic 116–136; BP diastolic 48–61; PULSE 72–94; RESP 18–25; TEMP 36.1–36.4; O2SAT 94–100
[2023-12-08] MEDS: ALBUTEROL SULFATE NEB 2.5 MG/3 ML INH INHALATION ×4 (02:49→20:28)
[2023-12-08 06:11] LABS: Basophils Percent Auto 0.4 % (0.2-1.2); Eosinophils Absolute Auto 0.2 K/mm3 (0-0.3); Eosinophils Percent Auto 4.2 % (0-4.4); Hematocrit 27.3 % (37.0-47.0); Immature Granulocyte Absolute 0.02 K/mm3 (0.00-0.031); Immature Granulocyte Percent A 0.4 % (0-0.5); Lymphocytes Absolute Auto 0.94 K/mm3 (0.9-3.2); Lymphocytes Percent Auto 17.8 % (18.3-44.2); Mean Corpuscular HGB Conc 29.3 g/dl (32-36); Mean Corpuscular Volume 92.2 fl (80-100); Monocytes Absolute Auto 0.5 K/mm3 (0.1-0.6); Monocytes Percent Auto 8.9 % (2.6-8.5); Neutrophils Absolute Auto 3.6 K/mm3 (1.3-6.7); Neutrophils Percent Auto 68.3 % (45.5-73.1); Platelet Count Result 152 k/mm3 (150-375); Red Blood Count 2.96 M/mm3 (4.2-5.4); Red Cell Distribution Width 17.2 % (11.5-14.5); White Blood Count 5.3 K/mm3 (4.5-10.0)
[2023-12-08] MEDS: LEVOTHYROXINE SODIUM 75 MCG TABLET PO (06:20)
[2023-12-08 06:22] LABS: Alanine Aminotransferase 16 U/L (6-35); Albumin Level 3.3 g/dL (3.5-5.1); Alkaline Phosphatase 103 U/L (38-126); Anion Gap 3 mmol/L (4-12); Aspartate Amino Transferase 27 U/L (14-36); Blood Urea Nitrogen 27 mg/dL (7-17); Calcium 8.7 mg/dL (8.4-10.2); Carbon Dioxide 38 mmol/L (22-30); Chloride 99 mmol/L (98-107); Estimated CRCL calculation 82 ml/min; Estimated Glomerular Filt Rate 48; Glucose 135 mg/dL (65-110); Magnesium 2.3 mg/dL (1.6-2.3); Potassium 3.5 mmol/L (3.4-5.0); Sodium 140 mmol/L (137-145)
--- NOTE | 2023-12-08 06:34 | PHAR ---
The current weight appears to be the most accurate. Suspect there was a fluke/twister operator error/lack of zeroing.
[2023-12-08] MEDS: FUROSEMIDE INJ 40 MG/4 ML VIAL IV PUSH (09:16)
[2023-12-08] MEDS: BUMETANIDE 1 MG TABLET 2 MG PO ×2 (09:16→17:53)
[2023-12-08] MEDS: PANTOPRAZOLE 40 MG TABLET PO ×2 (09:17→17:52)
[2023-12-08] MEDS: busPIRone HCL 5 MG TABLET 15 MG PO ×3 (09:17→17:53)
[2023-12-08] MEDS: POTASSIUM CHLORIDE 20 MEQ ER TABLET 40 MEQ PO ×2 (09:17→17:52)
[2023-12-08] MEDS: APIXABAN 5 MG TABLET PO ×2 (09:17→21:24)
[2023-12-08] MEDS: SPIRONOLACTONE 25 MG TABLET PO (09:17)
[2023-12-08] MEDS: FERROUS SULFATE 325 MG TABLET DR BY MOUTH (09:17)
[2023-12-08] MEDS: lamoTRIgine 100 MG TABLET PO (09:17)
[2023-12-08] MEDS: guaiFENesin 12 HR 600 MG TABCR PO ×2 (09:18→21:24)
[2023-12-08] MEDS: PARoxetine 10 MG TABLET PO (09:18)
[2023-12-08] MEDS: METOPROLOL TARTRATE 25 MG TABLET PO ×2 (09:18→21:23)
[2023-12-08] MEDS: BENZONATATE 100 MG CAPSULE PO ×3 (09:18→17:52)
[2023-12-08] MEDS: QUEtiapine FUMARATE 100 MG TABLET PO ×2 (09:18→14:31)
[2023-12-08] MEDS: MULTIVITAMINS THERAPEUTIC TAB (*BKC) 1 TABLET PO (09:18)
[2023-12-08] MEDS: SUCRALFATE 1 GM TABLET PO (09:19)
[2023-12-08] MEDS: TOLNAFTATE 1% POWDER 45 GM BTL 1 APPLIC TOPICAL ×4 (09:19→21:24)
[2023-12-08] MEDS: EMPAGLIFLOZIN 10 MG TABLET PO (09:19)
[2023-12-08] MEDS: dilTIAZem HCL CD 300 MG CAP.24HR PO (09:19)
--- NOTE | 2023-12-08 12:29 | PM.IMPN ---
Progress Note: A&P Assessment and Plan (1) Atrial fibrillation with RVR: Code(s): I48.91 - Unspecified atrial fibrillation Status: Acute Assessment and Plan: Atrial fibrillation with rapid ventricular rate, history of AFib. Does not appear to be in acute CHF exacerbation. Cardizem drip increased, oral metoprolol increased 12/03: Patient remains stable on diltiazem 15 milligrams/hour on drip overnight. Ordered diltiazem 300 mg oral and discontinue drip. 12/04: Stable rate on oral diltiazem and metoprolol 12/05: Continues to remain stable on oral diltiazem and metoprolol. May downgrade out of IMU. 12/06: atrial fibrillation rate of 73 pvc monitor per interpretation, stable on oral diltiazem and metoprolol. 12/07: Regular rate of 77 pvc monitor per my interpretation. (2) Gait abnormality: Code(s): R26.9 - Unspecified abnormalities of gait and mobility Status: Acute Assessment and Plan: Patient could not ambulate/stand up after using the commode at home which prompted EMS call the found her in AFib RVR PT and OT consulted 12/05: Needs further motivation to participate with therapy (3) GERD (gastroesophageal reflux disease): Code(s): K21.9 - Gastro-esophageal reflux disease without esophagitis Status: Chronic Assessment and Plan: Chronic, continue home medication (4) Chronic respiratory failure requiring treatment with nocturnal BPAP by mask: Code(s): J96.10 - Chronic respiratory failure, unspecified whether with hypoxia or hypercapnia; Z99.89 - Dependence on other enabling machines and devices Status: Chronic Assessment and Plan: Patient reports compliance with BiPAP, home unit at bedside for use at night and when sleeping 12/03: Patient on BiPAP this morning for evaluation 12/05: Remains on BiPAP per patient request, slight crackles throughout the lungs. Increase diuresis today. 12/07: Patient with subjective worsening dyspnea slightly improved lung sounds still with some scattered crackles. Increased body weight since admission. Increase diuresis again (5) CHF (congestive heart failure), NYHA class I: Code(s): I50.9 - Heart failure, unspecified Status: Chronic Assessment and Plan: Chronic, does not appear to be in an acute exacerbation at this time 4/25: Shortness of breath likely due to splenic CHF exacerbation. Additional dose of spironolactone today as her potassium and also dropped. 12/04: No crackles noted but patient subjectively short of breath and remains on BiPap throughout the day. 12/05: Remains on BiPAP per patient request, slight crackles throughout the lungs. Increase diuresis today. 12/06: Crackles noted. Continue increased diuresis. 12/07: Patient with subjective worsening dyspnea slightly improved lung sounds still with some scattered crackles. Increased body weight since admission. Increase diuresis again (6) Morbid obesity with BMI of 70 and over, adult: Code(s): E66.01 - Morbid (severe) obesity due to excess calories; Z68.45 - Body mass index [BMI] 70 or greater, adult Status: Chronic Plan -Continue increased diuresis today. -The patient will require SNF/longterm placement as she is not able to ambulate well enough to return home alone at this time. -She will require significantly more therapy for strengthening. - subjectively more dyspneic objectively improved lung sounds and improved lower extremity lymphedema/ swelling but increased body weight since admission, instructed to use BiPAP p.r.n. during the day to assist with dyspnea and increased diuresis Time Spent With Patient Time with patient: Greater than 35 minutes Subjective Date/time seen: 12/08/23 12:29 Interval history: Patient reports that she is feeling more dyspneic. With Rechecking weight she has gained about 10 kilos while hospitalized. Continue aggressive IV diuresis. Review of Systems Review of Systems: Derrell boateng
[2023-12-08] MEDS: FUROSEMIDE INJ 40 MG/4 ML VIAL 80 MG IV PUSH (17:52)
[2023-12-08] MEDS: SENNA/DOCUSATE SODIUM TABLET 1 TAB PO (21:24)
[2023-12-08] MEDS: QUEtiapine FUMARATE 100 MG TABLET 200 MG PO (21:24)
[2023-12-09] VITALS (22 sets, daily range): BP systolic 119–143; BP diastolic 52–66; PULSE 72–98; RESP 12–24; TEMP 36.1–36.4; O2SAT 93–100
[2023-12-09] MEDS: ALBUTEROL SULFATE NEB 2.5 MG/3 ML INH INHALATION ×4 (02:14→19:35)
[2023-12-09 05:43] LABS: Basophils Percent Auto 0.5 % (0.2-1.2); Eosinophils Absolute Auto 0.2 K/mm3 (0-0.3); Eosinophils Percent Auto 3.6 % (0-4.4); Hematocrit 28.3 % (37.0-47.0); Hemoglobin 8.1 g/dL (12.0-15.0); Immature Granulocyte Absolute 0.03 K/mm3 (0.00-0.031); Immature Granulocyte Percent A 0.5 % (0-0.5); Lymphocytes Absolute Auto 1.05 K/mm3 (0.9-3.2); Mean Corpuscular HGB Conc 28.6 g/dl (32-36); Mean Corpuscular Hemoglobin 26.6 pg (26-34); Mean Corpuscular Volume 92.8 fl (80-100); Mean Platelet Volume 9.6 fl (7.4-10.4); Monocytes Absolute Auto 0.5 K/mm3 (0.1-0.6); Monocytes Percent Auto 8.6 % (2.6-8.5); Neutrophils Absolute Auto 4.3 K/mm3 (1.3-6.7); Neutrophils Percent Auto 69.8 % (45.5-73.1); Platelet Count Result 165 k/mm3 (150-375); Red Blood Count 3.05 M/mm3 (4.2-5.4); White Blood Count 6.2 K/mm3 (4.5-10.0)
[2023-12-09 05:58] LABS: Alanine Aminotransferase 18 U/L (6-35); Albumin Level 3.3 g/dL (3.5-5.1); Alkaline Phosphatase 112 U/L (38-126); Aspartate Amino Transferase 32 U/L (14-36); Bilirubin,Total 0.9 mg/dL (0.2-1.3); Blood Urea Nitrogen 27 mg/dL (7-17); Calcium 8.8 mg/dL (8.4-10.2); Carbon Dioxide > 40 mmol/L (22-30); Chloride 98 mmol/L (98-107); Estimated CRCL calculation 76 ml/min; Estimated Glomerular Filt Rate 43; Glucose 138 mg/dL (65-110); Magnesium 2.3 mg/dL (1.6-2.3); Potassium 3.5 mmol/L (3.4-5.0); Sodium 141 mmol/L (137-145)
[2023-12-09] MEDS: LEVOTHYROXINE SODIUM 75 MCG TABLET PO (06:19)
[2023-12-09 06:24] LABS: Platelet Estimate Adequate (Adequate)
[2023-12-09 06:25] LABS: Hypochromasia 1+; Schistocytes None Seen
--- NOTE | 2023-12-09 08:33 | PCPTNOTE ---
Attempted to see patient for PT, however patient declined and asked therapy to come back later. Patient reported not feeling well. RN aware.
[2023-12-09] MEDS: SUCRALFATE 1 GM TABLET PO (09:45)
[2023-12-09] MEDS: QUEtiapine FUMARATE 100 MG TABLET PO ×2 (09:45→16:41)
[2023-12-09] MEDS: SPIRONOLACTONE 25 MG TABLET PO (09:45)
[2023-12-09] MEDS: busPIRone HCL 5 MG TABLET 15 MG PO ×3 (09:45→16:40)
[2023-12-09] MEDS: PANTOPRAZOLE 40 MG TABLET PO ×2 (09:45→16:40)
[2023-12-09] MEDS: EMPAGLIFLOZIN 10 MG TABLET PO (09:45)
[2023-12-09] MEDS: FERROUS SULFATE 325 MG TABLET DR BY MOUTH (09:45)
[2023-12-09] MEDS: PARoxetine 10 MG TABLET PO (09:45)
[2023-12-09] MEDS: MULTIVITAMINS THERAPEUTIC TAB (*BKC) 1 TABLET PO (09:45)
[2023-12-09] MEDS: POTASSIUM CHLORIDE 20 MEQ ER TABLET 40 MEQ PO ×2 (09:45→16:40)
[2023-12-09] MEDS: BUMETANIDE 1 MG TABLET 2 MG PO (09:46)
[2023-12-09] MEDS: lamoTRIgine 100 MG TABLET PO (09:46)
[2023-12-09] MEDS: BENZONATATE 100 MG CAPSULE PO ×3 (09:46→16:40)
[2023-12-09] MEDS: APIXABAN 5 MG TABLET PO ×2 (09:46→21:44)
[2023-12-09] MEDS: guaiFENesin 12 HR 600 MG TABCR PO ×2 (09:46→21:44)
[2023-12-09] MEDS: FUROSEMIDE INJ 40 MG/4 ML VIAL 80 MG IV PUSH (09:46)
[2023-12-09] MEDS: dilTIAZem HCL CD 300 MG CAP.24HR PO (09:47)
[2023-12-09] MEDS: METOPROLOL TARTRATE 25 MG TABLET PO ×2 (09:47→21:44)
[2023-12-09] MEDS: TOLNAFTATE 1% POWDER 45 GM BTL 1 APPLIC TOPICAL ×4 (09:51→21:44)
--- NOTE | 2023-12-09 11:41 | P.CDI_ITS ---
CDI Query Clarification Request Documented history of CHF. CHF noted in the assessment and plan. Elevated BNP on 12/02/23 lab work. Bumex listed as a home medication. Patient currently receiving both Bumex and Lasix per the MAR. 12/07/23 chest xray notes pulmonary edema. Documentation in the medical record also notes: (5) CHF (congestive heart failure), NYHA class I: ?Code(s): I50.9 - Heart failure, unspecified ?Status:?Chronic ?Assessment and Plan: Chronic, does not appear to be in an acute exacerbation at this time 12/03:? Shortness of breath likely due to splenic CHF exacerbation.? Additional dose of spironolactone today as her potassium and also dropped. 12/04:? No crackles noted but patient subjectively short of breath and remains on BiPap throughout the day. 12/05:? Remains on BiPAP per patient request, slight crackles throughout the lungs.? Increase diuresis today. 12/06:? Crackles noted.? Continue increased diuresis. 12/07:? Patient with subjective worsening dyspnea slightly improved lung sounds still with some scattered crackles.? Increased body weight since admission.? Increase diuresis again Please specify type and acuity of heart failure if known. Risk Factors: Clinical Indicators: Treatment: * Acute * Chronic * Acute on Chronic * Unknown * Systolic * Diastolic * Combined Systolic and Diastolic * Unknown
--- NOTE | 2023-12-09 15:49 | PM.IMPN ---
Progress Note: A&P Assessment and Plan (1) Atrial fibrillation with RVR: Code(s): I48.91 - Unspecified atrial fibrillation Status: Acute Assessment and Plan: Patient presented with fall and found to have AFib with RVR treated with diltiazem drip. She has chronic AFib and was son metoprolol 12.5mg Q12hr and Eliquis 5mg Q12h at home Weaned to oral diltiazem. She was continued on metoprolol and Eliquis BP stable. HR well controlled TSH normal in October Continue the same. (2) CHF (congestive heart failure), NYHA class I: Code(s): I50.9 - Heart failure, unspecified Status: Chronic Assessment and Plan: CXR on admission showing mild interstitial edema. BNP 2109. Troponin negative x3. Bumex continued on admisison. Echo October 2023 showing LVH with normal size and fxn with EF 60-65% and Grade I diastolic dysfunction. Mild RV and LA enlargement. Patieint with acute on chronic diastolic CHF. Lasix 40mg IV BID started 12/05 and increased to 80mg IV BID yesterday. She remains on oral Bumex CXR 12/06 showing mild pulmonary edema and CMG - images reviewed Still SOB with inspiratory crackles but clinically does not appear to be fluid overloaded. Cr stable with diuretics but developing contraction alkalosis. Atypical chest pain last night but none today. Follow for now Weight unreliable but with excellent UOP with negative fluid balance. Suspect she is getting close to dry weight Check ABG, CXR. Check for COVID. Check sputum to exclude other etiologies and to explain her persistent SOB Check MRSA screen, BCx and start abx Stop IV Lasix and hold Bumex for today but resume Bumex in am. (3) Gait abnormality: Code(s): R26.9 - Unspecified abnormalities of gait and mobility Status: Acute Assessment and Plan: Patient could not ambulate/stand up after using the commode at home which prompted EMS call the found her in AFib RVR [place] related to the AFib/RVR and CHF made more challenging due to her weight. PT and OT consulted Plan for SNF/penitentiary placement as she is not able to ambulate well enough to return home alone at this time. (4) Chronic respiratory failure requiring treatment with nocturnal BPAP by mask: Code(s): J96.10 - Chronic respiratory failure, unspecified whether with hypoxia or hypercapnia; Z99.89 - Dependence on other enabling machines and devices Status: Chronic Assessment and Plan: Patient reports compliance with BiPAP at home. Continue at night and with naps (5) Morbid obesity with BMI of 70 and over, adult: Code(s): E66.01 - Morbid (severe) obesity due to excess calories; Z68.45 - Body mass index [BMI] 70 or greater, adult Status: Chronic Assessment and Plan: Contributing to her other medical problems. Healthy lifestyle encouraged (6) Anemia: Code(s): D64.9 - Anemia, unspecified Status: Acute Assessment and Plan: Patient with chronic anemia with Hgb mostly in the 8-9 range and no change here Noted to be iron deficient in March 2023. She is on oral iron. Anemia may be contributing to her dyspnea Repeat iron studies. Consider IV iron if still low Plan DVT prophylaxis - Breaquis Code status - full Subjective Date/time seen: 12/09/23 15:49 Interval history: 48yo female with chronic resp failure, ZULEIKA, HTN, lymphedema, DM and pAFib here for fall. Assuming care. Chart reviewed. She was having chest heaviness last night when she would exhale. This kept her up last night. She did mention it to the RN. no discomfort with inspiration and no chest discomfort now. Feels tired and complains of nausea. She able to eat without issue. No change with the nausea associated with eating. Has chronic SOB but worse then usual. Cough that is nonproductive. Nml BMs. Exam Narrative: AF 97.0 119/52 77 20 98% 3L Gen - NARD lying semi-recumbent in recliner Chest - bibasilar inspiratory crackles, mildly tachypn
[2023-12-09 18:30] LABS: Influenza A QL RT-PCR Negative (Negative); Influenza B QL RT-PCR Negative (Negative); RSV RNA, RT-PCR Negative (Negative); SARS-CoV-2 RNA PCR Negative (Negative)
[2023-12-09 18:34] LABS: Base Excess ABG 13.2 mEq/l (+/-2.0); Fractional Inspired Oxygen 28 %; HCO3 ABG 36.2 mEq/l (22.0-26.0); Oxygen Saturation ABG 98.7 % (95.0-100.0); Oxyhemoglobin 95.8 % THb (90.0-100.0); PCO2 ABG 39.8 mmHg (35.0-45.0); PO2 ABG 117.7 mmHg (80.0-100.0); Total Hemoglobin 8.7 g/dL (12.0-18.0)
[2023-12-09 18:43] LABS: Device NASAL CANNULA; Site Drawn LEFT RADIAL; pH ABG 7.577 (7.350-7.450)
--- NOTE | 2023-12-09 18:50 | PC.NURSE ---
This patient, Peg Nicole, was received from [[facility] ] on 12/09/23 at 1850. Patient/family oriented to unit policies and routines
[2023-12-09 20:32] LABS: MRSA (PCR) DETECTED (NOT DETECTE)
[2023-12-09] MEDS: SENNA/DOCUSATE SODIUM TABLET 1 TAB PO (21:43)
[2023-12-09] MEDS: DOXYCYCLINE HYCLATE 100 MG TABLET PO (21:44)
[2023-12-09] MEDS: QUEtiapine FUMARATE 100 MG TABLET 200 MG PO (21:44)
[2023-12-10] VITALS (23 sets, daily range): BP systolic 115–128; BP diastolic 42–63; PULSE 62–88; RESP 16–23; TEMP 36.4–36.7; O2SAT 91–98
[2023-12-10] MEDS: ALBUTEROL SULFATE NEB 2.5 MG/3 ML INH INHALATION ×4 (02:55→19:42)
[2023-12-10 04:57] LABS: Basophils Percent Auto 0.5 % (0.2-1.2); Eosinophils Absolute Auto 0.2 K/mm3 (0-0.3); Eosinophils Percent Auto 3.8 % (0-4.4); Hematocrit 27.4 % (37.0-47.0); Immature Granulocyte Absolute 0.02 K/mm3 (0.00-0.031); Immature Granulocyte Percent A 0.3 % (0-0.5); Lymphocytes Absolute Auto 1.01 K/mm3 (0.9-3.2); Lymphocytes Percent Auto 17.3 % (18.3-44.2); Mean Corpuscular HGB Conc 29.2 g/dl (32-36); Mean Corpuscular Hemoglobin 26.7 pg (26-34); Mean Corpuscular Volume 91.3 fl (80-100); Mean Platelet Volume 9.9 fl (7.4-10.4); Monocytes Absolute Auto 0.4 K/mm3 (0.1-0.6); Monocytes Percent Auto 6.5 % (2.6-8.5); Neutrophils Absolute Auto 4.2 K/mm3 (1.3-6.7); Neutrophils Percent Auto 71.6 % (45.5-73.1); Platelet Count Result 174 k/mm3 (150-375); Red Cell Distribution Width 16.9 % (11.5-14.5); White Blood Count 5.9 K/mm3 (4.5-10.0)
[2023-12-10 05:14] LABS: Alanine Aminotransferase 18 U/L (6-35); Albumin Level 3.3 g/dL (3.5-5.1); Alkaline Phosphatase 112 U/L (38-126); Aspartate Amino Transferase 30 U/L (14-36); Bilirubin,Total 0.9 mg/dL (0.2-1.3); Blood Urea Nitrogen 26 mg/dL (7-17); Calcium 8.8 mg/dL (8.4-10.2); Carbon Dioxide > 40 mmol/L (22-30); Chloride 97 mmol/L (98-107); Estimated CRCL calculation 76 ml/min; Estimated Glomerular Filt Rate 43; Glucose 133 mg/dL (65-110); Iron 38 ug/dL (37-170); Magnesium 2.4 mg/dL (1.6-2.3); Potassium 3.7 mmol/L (3.4-5.0); Sodium 139 mmol/L (137-145)
[2023-12-10 05:22] LABS: Hypochromasia 1+; Ovalocytes 1+; Platelet Estimate Adequate (Adequate); Schistocytes None Seen
[2023-12-10 05:24] LABS: Percent Iron Saturation 13 % (20-50)
[2023-12-10] MEDS: LEVOTHYROXINE SODIUM 75 MCG TABLET PO (06:00)
[2023-12-10 06:19] LABS: Folic Acid 17.3 ng/mL (2.76->20)
[2023-12-10] MEDS: MULTIVITAMINS THERAPEUTIC TAB (*BKC) 1 TABLET PO (08:19)
[2023-12-10] MEDS: busPIRone HCL 5 MG TABLET 15 MG PO ×3 (08:19→17:17)
[2023-12-10] MEDS: METOPROLOL TARTRATE 25 MG TABLET PO ×2 (08:19→20:44)
[2023-12-10] MEDS: EMPAGLIFLOZIN 10 MG TABLET PO (08:19)
[2023-12-10] MEDS: BENZONATATE 100 MG CAPSULE PO ×3 (08:19→17:17)
[2023-12-10] MEDS: SUCRALFATE 1 GM TABLET PO (08:20)
[2023-12-10] MEDS: QUEtiapine FUMARATE 100 MG TABLET PO ×2 (08:20→15:12)
[2023-12-10] MEDS: SPIRONOLACTONE 25 MG TABLET PO (08:20)
[2023-12-10] MEDS: PANTOPRAZOLE 40 MG TABLET PO ×2 (08:20→17:17)
[2023-12-10] MEDS: FERROUS SULFATE 325 MG TABLET DR BY MOUTH (08:20)
[2023-12-10] MEDS: guaiFENesin 12 HR 600 MG TABCR PO ×2 (08:20→20:44)
[2023-12-10] MEDS: APIXABAN 5 MG TABLET PO ×2 (08:20→20:44)
[2023-12-10] MEDS: POTASSIUM CHLORIDE 20 MEQ ER TABLET 40 MEQ PO ×2 (08:20→17:17)
[2023-12-10] MEDS: DOXYCYCLINE HYCLATE 100 MG TABLET PO ×2 (08:20→20:45)
[2023-12-10] MEDS: PARoxetine 10 MG TABLET PO (08:20)
[2023-12-10] MEDS: TOLNAFTATE 1% POWDER 45 GM BTL 1 APPLIC TOPICAL ×4 (08:22→20:46)
[2023-12-10] MEDS: EUCERIN CREAM 120 GM JAR 1 APPLIC TOPICAL (08:23)
[2023-12-10] MEDS: dilTIAZem HCL CD 300 MG CAP.24HR PO (08:42)
[2023-12-10] MEDS: lamoTRIgine 100 MG TABLET PO (08:42)
--- NOTE | 2023-12-10 11:16 | PM.IMPN ---
Progress Note: A&P Assessment and Plan (1) Atrial fibrillation with RVR: Code(s): I48.91 - Unspecified atrial fibrillation Status: Acute Assessment and Plan: Patient presented with fall and found to have AFib with RVR treated with diltiazem drip. She has chronic AFib and was son metoprolol 12.5mg Q12hr and Eliquis 5mg Q12h at home Weaned to oral diltiazem. She was continued on metoprolol and Eliquis BP stable. HR well controlled TSH normal in October Continue the same. (2) CHF (congestive heart failure), NYHA class I: Code(s): I50.9 - Heart failure, unspecified Status: Chronic Assessment and Plan: CXR on admission showing mild interstitial edema. BNP 2109. Troponin negative x3. Bumex continued on admisison. Echo October 2023 showing LVH with normal size and fxn with EF 60-65% and Grade I diastolic dysfunction. Mild RV and LA enlargement. Patieint with acute on chronic diastolic CHF. Lasix 40mg IV BID started 12/05 and increased to 80mg IV BID yesterday. She remains on oral Bumex CXR 12/06 showing mild pulmonary edema and CMG - images reviewed Still SOB with inspiratory crackles but clinically does not appear to be fluid overloaded. CRF stage3 creatinine 1.30 And gentle hydration. Avoid nephrotoxic drugs. Monitor antihypertensive drugs Avoid NSAIDs. Routine CMP monitor GFR. Monitor electrolytes potassium levels. (3) Gait abnormality: Code(s): R26.9 - Unspecified abnormalities of gait and mobility Status: Acute Assessment and Plan: Plan for SNF/assisted placement as she is not able to ambulate well enough to return home alone at this time. (4) Chronic respiratory failure requiring treatment with nocturnal BPAP by mask: Code(s): J96.10 - Chronic respiratory failure, unspecified whether with hypoxia or hypercapnia; Z99.89 - Dependence on other enabling machines and devices Status: Chronic Assessment and Plan: Patient reports compliance with BiPAP at home. Continue at night and with naps continue nebulizer treatment. Continue doxycycline and ceftriaxone still diuretics. Continue Tessalon Perles for cough (5) Morbid obesity with BMI of 70 and over, adult: Code(s): E66.01 - Morbid (severe) obesity due to excess calories; Z68.45 - Body mass index [BMI] 70 or greater, adult Status: Chronic Assessment and Plan: Contributing to her other medical problems. Healthy lifestyle encouraged (6) Anemia: Qualifiers: Anemia type: iron deficiency Code(s): D64.9 - Anemia, unspecified Status: Acute Assessment and Plan: ANEMIA Iron supplement Check for chronic renal failure monitor H&H 8. f Plan DVT prophylaxis - Eliquis Code status - full Subjective Date/time seen: 12/10/23 11:16 Interval history: still complains of some shortness of breath no nausea no vomiting no chest pain currently on BiPAP at night Review of Systems Review of Systems: All systems reviewed & are unremarkable except as noted in HPI and below Exam Narrative: GENERAL: Well appearing, no acute distress. morbid obesity HEAD: Normocephalic, atraumatic. NECK: Supple. No adenopathy, no masses. RESPIRATORY: respirations nonlabored. , has rales, has wheezing. CARDIOVASCULAR: Regular rate and rhythm without murmurs, . Peripheral pulses 2+ and equal bilaterally. ABDOMINAL: Soft, nontender, nondistended, no hepatosplenomegaly. Normoactive BS. MUSCULOSKELETAL: no Epigastric and no hypochondrial tenderness SKIN: Warm, dry, NEURO: A&O X3. Moves all extremities Objective Data Vital Signs Vital Signs: Vital Signs - 24 hr 12/09/23 12:00 12/09/23 14:05 12/09/23 14:05 Temperature Pulse Rate 81 77 Respiratory Rate 20 Blood Pressure Pulse Oximetry 98 Oxygen Delivery Nasal Cannula Oxygen Flow Rate 3 12/09/23 14:16 12/09/23 14:00 12/09/23 16:00 Tempera
--- NOTE | 2023-12-10 12:01 | PCOTNOTE ---
Attempted to see Patient at this time. Patient declined stating she is having some chest discomfort and needs to rest. RN present and aware. Will check back
[2023-12-10] MEDS: QUEtiapine FUMARATE 100 MG TABLET 200 MG PO (20:44)
[2023-12-10] MEDS: SENNA/DOCUSATE SODIUM TABLET 1 TAB PO (20:45)
[2023-12-11] VITALS (23 sets, daily range): BP systolic 117–146; BP diastolic 51–70; PULSE 55–90; RESP 18; TEMP 36.3–36.7; O2SAT 92–98
[2023-12-11] MEDS: ALBUTEROL SULFATE NEB 2.5 MG/3 ML INH INHALATION ×4 (02:08→20:51)
[2023-12-11 04:58] LABS: Basophils Percent Auto 0.7 % (0.2-1.2); Eosinophils Absolute Auto 0.2 K/mm3 (0-0.3); Eosinophils Percent Auto 3.8 % (0-4.4); Hemoglobin 8.1 g/dL (12.0-15.0); Immature Granulocyte Absolute 0.02 K/mm3 (0.00-0.031); Immature Granulocyte Percent A 0.4 % (0-0.5); Lymphocytes Percent Auto 18.2 % (18.3-44.2); Mean Corpuscular HGB Conc 28.9 g/dl (32-36); Mean Corpuscular Hemoglobin 26.8 pg (26-34); Mean Corpuscular Volume 92.7 fl (80-100); Mean Platelet Volume 9.9 fl (7.4-10.4); Monocytes Absolute Auto 0.4 K/mm3 (0.1-0.6); Monocytes Percent Auto 6.7 % (2.6-8.5); Neutrophils Absolute Auto 3.9 K/mm3 (1.3-6.7); Neutrophils Percent Auto 70.2 % (45.5-73.1); Platelet Count Result 173 k/mm3 (150-375); Red Blood Count 3.02 M/mm3 (4.2-5.4); Red Cell Distribution Width 16.9 % (11.5-14.5); White Blood Count 5.5 K/mm3 (4.5-10.0)
[2023-12-11 05:10] LABS: Alanine Aminotransferase 18 U/L (6-35); Albumin Level 3.3 g/dL (3.5-5.1); Alkaline Phosphatase 110 U/L (38-126); Aspartate Amino Transferase 31 U/L (14-36); Bilirubin,Total 0.7 mg/dL (0.2-1.3); Blood Urea Nitrogen 22 mg/dL (7-17); Calcium 9.1 mg/dL (8.4-10.2); Carbon Dioxide > 40 mmol/L (22-30); Chloride 98 mmol/L (98-107); Estimated CRCL calculation 82 ml/min; Estimated Glomerular Filt Rate 48; Glucose 126 mg/dL (65-110); Magnesium 2.4 mg/dL (1.6-2.3); Potassium 4.1 mmol/L (3.4-5.0); Sodium 141 mmol/L (137-145)
[2023-12-11 05:44] LABS: Anisocytosis 1+; Hypochromasia 1+; Platelet Estimate Adequate (Adequate); Schistocytes None Seen; Stomatocytes 1+
[2023-12-11] MEDS: LEVOTHYROXINE SODIUM 75 MCG TABLET PO (06:52)
[2023-12-11] MEDS: dilTIAZem HCL CD 300 MG CAP.24HR PO (08:54)
[2023-12-11] MEDS: BENZONATATE 100 MG CAPSULE PO ×3 (08:54→17:33)
[2023-12-11] MEDS: busPIRone HCL 5 MG TABLET 15 MG PO ×3 (08:54→17:33)
[2023-12-11] MEDS: APIXABAN 5 MG TABLET PO ×2 (08:54→20:40)
[2023-12-11] MEDS: lamoTRIgine 100 MG TABLET PO (08:55)
[2023-12-11] MEDS: EMPAGLIFLOZIN 10 MG TABLET PO (08:55)
[2023-12-11] MEDS: DOXYCYCLINE HYCLATE 100 MG TABLET PO ×2 (08:55→20:40)
[2023-12-11] MEDS: PARoxetine 10 MG TABLET PO (08:55)
[2023-12-11] MEDS: POTASSIUM CHLORIDE 20 MEQ ER TABLET 40 MEQ PO (08:55)
[2023-12-11] MEDS: guaiFENesin 12 HR 600 MG TABCR PO ×2 (08:55→20:40)
[2023-12-11] MEDS: PANTOPRAZOLE 40 MG TABLET PO ×2 (08:55→17:33)
[2023-12-11] MEDS: FERROUS SULFATE 325 MG TABLET DR BY MOUTH (08:55)
[2023-12-11] MEDS: MULTIVITAMINS THERAPEUTIC TAB (*BKC) 1 TABLET PO (08:55)
[2023-12-11] MEDS: METOPROLOL TARTRATE 25 MG TABLET PO ×2 (08:56→20:39)
[2023-12-11] MEDS: QUEtiapine FUMARATE 100 MG TABLET PO ×2 (08:56→15:13)
[2023-12-11] MEDS: SPIRONOLACTONE 25 MG TABLET PO (08:56)
[2023-12-11] MEDS: SUCRALFATE 1 GM TABLET PO (08:56)
--- NOTE | 2023-12-11 09:43 | PCNWS ---
Weekly nutritional screen. Patient is tolerating current diet with adequate intake, 100% meals. No weight loss reported. No nutritional needs at this time.
--- NOTE | 2023-12-11 09:56 | PM.IMPN ---
Progress Note: A&P Assessment and Plan (1) Atrial fibrillation with RVR: Code(s): I48.91 - Unspecified atrial fibrillation Status: Acute Assessment and Plan: Patient presented with fall and found to have AFib with RVR treated with diltiazem drip. She has chronic AFib and was son metoprolol 12.5mg Q12hr and Eliquis 5mg Q12h at home Weaned to oral diltiazem. She was continued on metoprolol and Eliquis BP stable. HR well controlled TSH normal in October Continue the same. (2) CHF (congestive heart failure), NYHA class I: Code(s): I50.9 - Heart failure, unspecified Status: Chronic Assessment and Plan: CXR on admission showing mild interstitial edema. BNP 2109. Troponin negative x3. Bumex continued on admisison. Echo October 2023 showing LVH with normal size and fxn with EF 60-65% and Grade I diastolic dysfunction. Mild RV and LA enlargement. Patieint with acute on chronic diastolic CHF. Lasix 40mg IV BID started 12/05 and increased to 80mg IV BID yesterday. She remains on oral Bumex CXR 12/06 showing mild pulmonary edema and CMG - images reviewed Still SOB with inspiratory crackles but clinically does not appear to be fluid overloaded. CRF stage3 creatinine 1.20 And gentle hydration. Avoid nephrotoxic drugs. Monitor antihypertensive drugs Avoid NSAIDs. Routine CMP monitor GFR. Monitor electrolytes potassium levels. patient currently on Jardiance. Will check hemoglobin A1c (3) Gait abnormality: Code(s): R26.9 - Unspecified abnormalities of gait and mobility Status: Acute Assessment and Plan: Plan for SNF/assisted placement as she is not able to ambulate well enough to return home alone at this time. (4) Chronic respiratory failure requiring treatment with nocturnal BPAP by mask: Code(s): J96.10 - Chronic respiratory failure, unspecified whether with hypoxia or hypercapnia; Z99.89 - Dependence on other enabling machines and devices Status: Chronic Assessment and Plan: Patient reports compliance with BiPAP at home. Continue at night and with naps continue nebulizer treatment. Continue doxycycline and ceftriaxone the still diuretics. Continue Tessalon Perles for cough (5) Morbid obesity with BMI of 70 and over, adult: Code(s): E66.01 - Morbid (severe) obesity due to excess calories; Z68.45 - Body mass index [BMI] 70 or greater, adult Status: Chronic Assessment and Plan: OBESITY Monitor physical inactivity. Stress monitoring and eating disorder. Referral to weight loss clinic. Weight bias and stigma screening. BMI Class Diet and exercise counseling done (6) Anemia: Qualifiers: Anemia type: iron deficiency Code(s): D64.9 - Anemia, unspecified Status: Acute Assessment and Plan: ANEMIA Iron supplement Check for chronic renal failure monitor H&H 8.09/06 currently stable continue to monitor continue Carafate Plan DVT prophylaxis - Eliquis Code status - full Subjective Date/time seen: 12/11/23 09:56 Interval history: still complains of some shortness of breath no nausea no vomiting no chest pain currently on BiPAP at night Exam Narrative: GENERAL: Well appearing, no acute distress. morbid obesity HEAD: Normocephalic, atraumatic. NECK: Supple. No adenopathy, no masses. RESPIRATORY: respirations nonlabored. , has rales, has wheezing. CARDIOVASCULAR: Regular rate and rhythm without murmurs, . Peripheral pulses 2+ and equal bilaterally. ABDOMINAL: Soft, nontender, nondistended, no hepatosplenomegaly. Normoactive BS. MUSCULOSKELETAL: no Epigastric and no hypochondrial tenderness SKIN: Warm, dry, NEURO: A&O X3. Moves all extremities Objective Data Vital Signs Vital Signs: Vital Signs - 24 hr 12/10/23 12:00 12/10/23 13:03 12/10/23 13:13 Temperature Pulse Rate 62 88 86 Respiratory Rate 18 18 Blood Pressure Pulse Ox
[2023-12-11 10:27] LABS: Hemoglobin A1C 5.6 % (<5.7)
[2023-12-11] MEDS: EUCERIN CREAM 120 GM JAR 1 APPLIC TOPICAL (10:42)
[2023-12-11] MEDS: TOLNAFTATE 1% POWDER 45 GM BTL 1 APPLIC TOPICAL ×4 (10:42→20:45)
[2023-12-11] MEDS: ONDANSETRON INJ 4 MG/2 ML VIAL IV PUSH (13:51)
[2023-12-11] MEDS: BUMETANIDE INJ 1 MG/4 ML VIAL IV PUSH (17:32)
--- NOTE | 2023-12-11 18:10 | PC.NURSE ---
1730 Patient c/o SOB audible wheezes noted. Dr Gutierrez notified. Bumex IV ordered.
[2023-12-11 18:35] LABS: D Dimer 1.07 ug/mL (<0.48)
--- NOTE | 2023-12-11 18:52 | PC.NURSE ---
Call placed to Dr Gutierrez to notify him of elevated d dimer. Call went straight to voicemail.
[2023-12-11] MEDS: QUEtiapine FUMARATE 100 MG TABLET 200 MG PO (20:39)
[2023-12-11] MEDS: SENNA/DOCUSATE SODIUM TABLET 1 TAB PO (20:40)
[2023-12-12] VITALS (25 sets, daily range): BP systolic 129–137; BP diastolic 58–64; PULSE 63–85; RESP 12–22; TEMP 36.4–36.5; O2SAT 94–100
[2023-12-12] MEDS: ALBUTEROL SULFATE NEB 2.5 MG/3 ML INH INHALATION ×4 (02:08→20:31)
[2023-12-12 05:04] LABS: Basophils Percent Auto 0.5 % (0.2-1.2); Eosinophils Absolute Auto 0.2 K/mm3 (0-0.3); Eosinophils Percent Auto 3.2 % (0-4.4); Hematocrit 29.1 % (37.0-47.0); Hemoglobin 8.2 g/dL (12.0-15.0); Immature Granulocyte Absolute 0.03 K/mm3 (0.00-0.031); Immature Granulocyte Percent A 0.5 % (0-0.5); Mean Corpuscular HGB Conc 28.2 g/dl (32-36); Mean Corpuscular Hemoglobin 26.5 pg (26-34); Mean Corpuscular Volume 93.9 fl (80-100); Monocytes Absolute Auto 0.4 K/mm3 (0.1-0.6); Neutrophils Absolute Auto 4.6 K/mm3 (1.3-6.7); Neutrophils Percent Auto 72.8 % (45.5-73.1); Platelet Count Result 191 k/mm3 (150-375); Red Cell Distribution Width 16.8 % (11.5-14.5); White Blood Count 6.3 K/mm3 (4.5-10.0)
[2023-12-12 05:23] LABS: Anisocytosis 1+; Hypochromasia 1+; Platelet Estimate Adequate (Adequate); Schistocytes None Seen
[2023-12-12] MEDS: LEVOTHYROXINE SODIUM 75 MCG TABLET PO (06:40)
--- NOTE | 2023-12-12 08:21 | PM.IMPN ---
Progress Note: A&P Assessment and Plan (1) Atrial fibrillation with RVR: Code(s): I48.91 - Unspecified atrial fibrillation Status: Acute Assessment and Plan: Patient presented with fall and found to have AFib with RVR treated with diltiazem drip. She has chronic AFib and was on metoprolol 12.5mg Q12hr and Eliquis 5mg Q12h at home Weaned to oral diltiazem. She was continued on metoprolol and Eliquis BP stable. HR well controlled TSH normal in October Continue the same. (2) CHF (congestive heart failure), NYHA class I: Code(s): I50.9 - Heart failure, unspecified Status: Chronic Assessment and Plan: CXR on admission showing mild interstitial edema. BNP 2109. Troponin negative x3. Bumex continued on admisison. Echo October 2023 showing LVH with normal size and fxn with EF 60-65% and Grade I diastolic dysfunction. Mild RV and LA enlargement. Patient with acute on chronic diastolic CHF. Lasix 40mg IV BID started 12/05 and increased to 80mg IV BID. She remains on oral Bumex CXR 12/06 showing mild pulmonary edema and CMG - images reviewed Still SOB with inspiratory crackles but clinically does not appear to be fluid overloaded. Monitor renal function with diuresis Resume Bumex 2 mg b.i.d. CRF stage3 creatinine 1.20 Also on Jardiance (3) Gait abnormality: Code(s): R26.9 - Unspecified abnormalities of gait and mobility Status: Acute Assessment and Plan: Plan for SNF/penitentiary placement as she is not able to ambulate well enough to return home alone at this time. (4) Chronic respiratory failure requiring treatment with nocturnal BPAP by mask: Code(s): J96.10 - Chronic respiratory failure, unspecified whether with hypoxia or hypercapnia; Z99.89 - Dependence on other enabling machines and devices Status: Chronic Assessment and Plan: Patient reports compliance with BiPAP at home. Continue at night and with naps continue nebulizer treatment. Continue doxycycline and ceftriaxone started since 12/09/23 still diuretics. Continue Tessalon Perles for cough (5) Morbid obesity with BMI of 70 and over, adult: Code(s): E66.01 - Morbid (severe) obesity due to excess calories; Z68.45 - Body mass index [BMI] 70 or greater, adult Status: Chronic Assessment and Plan: OBESITY Monitor physical inactivity. Stress monitoring and eating disorder. Referral to weight loss clinic. Weight bias and stigma screening BMI Class Diet and exercise counseling done (6) Anemia: Qualifiers: Anemia type: iron deficiency Code(s): D64.9 - Anemia, unspecified Status: Acute Assessment and Plan: ANEMIA Iron supplement Check for chronic renal failure monitor H&H 8.09/06 currently stable continue to monitor continue Carafate Plan Elevated D-dimer DVT prophylaxis - Eliquis Code status - full Subjective Date/time seen: 12/12/23 08:21 Interval history: Continues to report shortness of breath. Working with therapy. Auto PAP at night chronic oxygen use. Leg swelling somewhat better Review of Systems Review of Systems: All systems reviewed & are unremarkable except as noted in HPI and below Exam Narrative: GENERAL: Well appearing, no acute distress. morbid obesity HEAD: Normocephalic, atraumatic. NECK: Supple. No adenopathy, no masses. RESPIRATORY: respirations nonlabored. , has rales, has wheezing. CARDIOVASCULAR: Regular rate and rhythm without murmurs, . Peripheral pulses 2+ and equal bilaterally. ABDOMINAL: Soft, nontender, nondistended, no hepatosplenomegaly. Normoactive BS. MUSCULOSKELETAL: no Epigastric and no hypochondrial tenderness SKIN: Warm, dry, NEURO: A&O X3. Moves all extremities Objective Data Vital Signs Vital Signs: Vital Signs - 24 hr 12/11/23 08:56 12/11/23 12:00 12/11/23 14:18 Temperature Pulse Rate 85 55 L 66 Respiratory Rate 18 Blood Pressure
[2023-12-12] MEDS: PANTOPRAZOLE 40 MG TABLET PO ×2 (08:54→17:49)
[2023-12-12] MEDS: QUEtiapine FUMARATE 100 MG TABLET PO ×3 (08:54→20:17)
[2023-12-12] MEDS: MULTIVITAMINS THERAPEUTIC TAB (*BKC) 1 TABLET PO (08:54)
[2023-12-12] MEDS: BENZONATATE 100 MG CAPSULE PO ×3 (08:54→17:49)
[2023-12-12] MEDS: dilTIAZem HCL CD 300 MG CAP.24HR PO (08:54)
[2023-12-12] MEDS: FERROUS SULFATE 325 MG TABLET DR BY MOUTH (08:54)
[2023-12-12] MEDS: lamoTRIgine 100 MG TABLET PO (08:55)
[2023-12-12] MEDS: METOPROLOL TARTRATE 25 MG TABLET PO ×2 (08:55→20:18)
[2023-12-12] MEDS: PARoxetine 10 MG TABLET PO (08:55)
[2023-12-12] MEDS: POTASSIUM CHLORIDE 20 MEQ ER TABLET 40 MEQ PO (08:55)
[2023-12-12] MEDS: guaiFENesin 12 HR 600 MG TABCR PO ×2 (08:55→20:18)
[2023-12-12] MEDS: APIXABAN 5 MG TABLET PO ×2 (08:55→20:18)
[2023-12-12] MEDS: DOXYCYCLINE HYCLATE 100 MG TABLET PO ×2 (08:55→20:17)
[2023-12-12] MEDS: SPIRONOLACTONE 25 MG TABLET PO (08:55)
[2023-12-12] MEDS: SUCRALFATE 1 GM TABLET PO (08:55)
[2023-12-12] MEDS: EMPAGLIFLOZIN 10 MG TABLET PO (08:55)
[2023-12-12] MEDS: TOLNAFTATE 1% POWDER 45 GM BTL 1 APPLIC TOPICAL ×4 (08:56→20:22)
[2023-12-12] MEDS: busPIRone HCL 5 MG TABLET 15 MG PO ×3 (08:56→17:49)
[2023-12-12] MEDS: EUCERIN CREAM 120 GM JAR 1 APPLIC TOPICAL (08:57)
--- NOTE | 2023-12-12 11:18 | PCOTNOTE ---
Attempted to see Patient at this time. Patient declined at this time due to stating she has already performed PT services, needs a break and requested OT come back in the afternoon.
[2023-12-12] MEDS: ONDANSETRON INJ 4 MG/2 ML VIAL IV PUSH (13:36)
[2023-12-12] MEDS: BUMETANIDE 1 MG TABLET 2 MG PO (17:49)
[2023-12-12 18:47] LABS: NT Pro B Type Natriuretic Pept 1540 pg/mL (19.9-100)
[2023-12-12] MEDS: QUEtiapine FUMARATE 100 MG TABLET 200 MG PO (20:17)
[2023-12-12] MEDS: SENNA/DOCUSATE SODIUM TABLET 1 TAB PO (20:18)
[2023-12-13] VITALS (25 sets, daily range): BP systolic 119–137; BP diastolic 59–68; PULSE 62–92; RESP 16–20; TEMP 36.3–36.6; O2SAT 92–98
[2023-12-13] MEDS: ALBUTEROL SULFATE NEB 2.5 MG/3 ML INH INHALATION ×2 (02:18→07:00)
[2023-12-13 05:28] LABS: Basophils Percent Auto 0.5 % (0.2-1.2); Eosinophils Absolute Auto 0.2 K/mm3 (0-0.3); Eosinophils Percent Auto 3.6 % (0-4.4); Hematocrit 28.9 % (37.0-47.0); Hemoglobin 8.3 g/dL (12.0-15.0); Immature Granulocyte Absolute 0.01 K/mm3 (0.00-0.031); Immature Granulocyte Percent A 0.2 % (0-0.5); Lymphocytes Absolute Auto 1.05 K/mm3 (0.9-3.2); Lymphocytes Percent Auto 18.7 % (18.3-44.2); Mean Corpuscular HGB Conc 28.7 g/dl (32-36); Mean Corpuscular Hemoglobin 26.9 pg (26-34); Mean Corpuscular Volume 93.8 fl (80-100); Mean Platelet Volume 9.7 fl (7.4-10.4); Monocytes Absolute Auto 0.4 K/mm3 (0.1-0.6); Monocytes Percent Auto 7.1 % (2.6-8.5); Neutrophils Absolute Auto 3.9 K/mm3 (1.3-6.7); Neutrophils Percent Auto 69.9 % (45.5-73.1); Platelet Count Result 177 k/mm3 (150-375); Red Blood Count 3.08 M/mm3 (4.2-5.4); Red Cell Distribution Width 16.8 % (11.5-14.5); White Blood Count 5.6 K/mm3 (4.5-10.0)
[2023-12-13 05:47] LABS: Anisocytosis 1+; Hypochromasia 2+; Platelet Estimate Adequate (Adequate); Schistocytes None Seen; Stomatocytes 1+
[2023-12-13] MEDS: LEVOTHYROXINE SODIUM 75 MCG TABLET PO (05:48)
[2023-12-13 06:02] LABS: Alanine Aminotransferase 19 U/L (6-35); Albumin Level 3.4 g/dL (3.5-5.1); Alkaline Phosphatase 120 U/L (38-126); Aspartate Amino Transferase 33 U/L (14-36); Bilirubin,Total 0.7 mg/dL (0.2-1.3); Blood Urea Nitrogen 22 mg/dL (7-17); Calcium 8.7 mg/dL (8.4-10.2); Carbon Dioxide > 40 mmol/L (22-30); Chloride 97 mmol/L (98-107); Estimated CRCL calculation 47 ml/min; Estimated Glomerular Filt Rate 43; Glucose 121 mg/dL (65-110); Magnesium 2.5 mg/dL (1.6-2.3); Potassium 4.2 mmol/L (3.4-5.0); Sodium 137 mmol/L (137-145)
[2023-12-13] MEDS: SPIRONOLACTONE 25 MG TABLET PO (09:04)
[2023-12-13] MEDS: BENZONATATE 100 MG CAPSULE PO ×3 (09:04→17:32)
[2023-12-13] MEDS: lamoTRIgine 100 MG TABLET PO (09:04)
[2023-12-13] MEDS: busPIRone HCL 5 MG TABLET 15 MG PO ×3 (09:04→17:32)
[2023-12-13] MEDS: PANTOPRAZOLE 40 MG TABLET PO ×2 (09:04→17:32)
[2023-12-13] MEDS: APIXABAN 5 MG TABLET PO ×2 (09:05→20:10)
[2023-12-13] MEDS: BUMETANIDE 1 MG TABLET 2 MG PO ×2 (09:05→17:32)
[2023-12-13] MEDS: MULTIVITAMINS THERAPEUTIC TAB (*BKC) 1 TABLET PO (09:05)
[2023-12-13] MEDS: FERROUS SULFATE 325 MG TABLET DR BY MOUTH (09:05)
[2023-12-13] MEDS: PARoxetine 10 MG TABLET PO (09:05)
[2023-12-13] MEDS: DOXYCYCLINE HYCLATE 100 MG TABLET PO ×2 (09:05→20:09)
[2023-12-13] MEDS: EMPAGLIFLOZIN 10 MG TABLET PO (09:05)
[2023-12-13] MEDS: METOPROLOL TARTRATE 25 MG TABLET PO ×2 (09:05→20:09)
[2023-12-13] MEDS: guaiFENesin 12 HR 600 MG TABCR PO ×2 (09:05→20:09)
[2023-12-13] MEDS: SUCRALFATE 1 GM TABLET PO (09:05)
[2023-12-13] MEDS: dilTIAZem HCL CD 300 MG CAP.24HR PO (09:06)
[2023-12-13] MEDS: EUCERIN CREAM 120 GM JAR 1 APPLIC TOPICAL (09:06)
[2023-12-13] MEDS: TOLNAFTATE 1% POWDER 45 GM BTL 1 APPLIC TOPICAL ×4 (09:06→20:12)
[2023-12-13] MEDS: POTASSIUM CHLORIDE 20 MEQ ER TABLET 40 MEQ PO (09:06)
--- NOTE | 2023-12-13 11:58 | PM.IMPN ---
Progress Note: A&P Assessment and Plan (1) Atrial fibrillation with RVR: Code(s): I48.91 - Unspecified atrial fibrillation Status: Acute Assessment and Plan: Patient presented with fall and found to have AFib with RVR treated with diltiazem drip. She has chronic AFib and was on metoprolol 12.5mg Q12hr and Eliquis 5mg Q12h at home Weaned to oral diltiazem. She was continued on metoprolol and Eliquis BP stable. HR well controlled TSH normal in October Continue the same. (2) CHF (congestive heart failure), NYHA class I: Code(s): I50.9 - Heart failure, unspecified Status: Chronic Assessment and Plan: CXR on admission showing mild interstitial edema. BNP 2109. Troponin negative x3. Bumex continued on admisison. Echo October 2023 showing LVH with normal size and fxn with EF 60-65% and Grade I diastolic dysfunction. Mild RV and LA enlargement. Patient with acute on chronic diastolic CHF. Lasix 40mg IV BID started 12/05 and increased to 80mg IV BID. She remains on oral Bumex CXR 12/06 showing mild pulmonary edema and CMG - images reviewed Still SOB with inspiratory crackles but clinically does not appear to be fluid overloaded. Monitor renal function with diuresis Resume Bumex 2 mg b.i.d. CRF stage3 creatinine 1.20 Also on Jardiance Chest x-ray with interstitial edema. D-dimer the liver. CTA does 1 acute contrast IV will do V/Q scan if feasible CT chest to further evaluate without contrast For stridor will also get CT (3) Gait abnormality: Code(s): R26.9 - Unspecified abnormalities of gait and mobility Status: Acute Assessment and Plan: Plan for SNF/detention placement as she is not able to ambulate well enough to return home alone at this time. (4) Chronic respiratory failure requiring treatment with nocturnal BPAP by mask: Code(s): J96.10 - Chronic respiratory failure, unspecified whether with hypoxia or hypercapnia; Z99.89 - Dependence on other enabling machines and devices Status: Chronic Assessment and Plan: Patient reports compliance with BiPAP at home. Continue at night and with naps continue nebulizer treatment. Continue doxycycline and ceftriaxone started since 12/09/23 still diuretics. Continue Tessalon Perles for cough Switch to DuoNeb (5) Morbid obesity with BMI of 70 and over, adult: Code(s): E66.01 - Morbid (severe) obesity due to excess calories; Z68.45 - Body mass index [BMI] 70 or greater, adult Status: Chronic Assessment and Plan: OBESITY Monitor physical inactivity. Stress monitoring and eating disorder. Referral to weight loss clinic. Weight bias and stigma screening BMI Class Diet and exercise counseling done (6) Anemia: Qualifiers: Anemia type: iron deficiency Code(s): D64.9 - Anemia, unspecified Status: Acute Assessment and Plan: ANEMIA Iron supplement Check for chronic renal failure monitor H&H 8.09/06 currently stable continue to monitor continue Carafate Plan Elevated D-dimer order V/Q scan DVT prophylaxis - Breaquis Code status - full Subjective Date/time seen: 12/13/23 11:58 Interval history: Continues to report shortness of breath. Wheezes/stridor still present. No cough. Getting breathing treatment Review of Systems Review of Systems: All systems reviewed & are unremarkable except as noted in HPI and below Exam Narrative: GENERAL: Well appearing, no acute distress. morbid obesity HEAD: Normocephalic, atraumatic. NECK: Supple. No adenopathy, no masses. RESPIRATORY: respirations nonlabored. , has rales, has wheezing. CARDIOVASCULAR: Regular rate and rhythm without murmurs, . Peripheral pulses 2+ and equal bilaterally. ABDOMINAL: Soft, nontender, nondistended, no hepatosplenomegaly. Normoactive BS. MUSCULOSKELETAL: no Epigastric and no hypochondrial tenderness SKIN: Warm, dry, NEURO: A&O X3. Moves all extremities
[2023-12-13] MEDS: IPRATROPIUM 0.5 MG/ALBUTEROL SULFATE 2.5 MG AMPUL.NEB 3 ML INHALATION ×2 (13:00→20:00)
[2023-12-13] MEDS: QUEtiapine FUMARATE 100 MG TABLET PO (15:09)
--- NOTE | 2023-12-13 18:10 | PC.NURSE ---
pt assisted to wheelchair to be transported to CT, she states she if fearful of exam. She states she has had experience in past where she did not fit in to machine due to size, she also states she is fearful of having to lay flat for length of exam, pt encouraged and reassured
--- NOTE | 2023-12-13 18:53 | PC.NURSE ---
pt was unable to lay flat for CT exam, they attempted to place non-rebreather mask on pt to assist her, she still refused laying flat for length of exam. returned to floor and assisted to recliner at bedside per her request
[2023-12-13] MEDS: SENNA/DOCUSATE SODIUM TABLET 1 TAB PO (20:09)
[2023-12-13] MEDS: QUEtiapine FUMARATE 100 MG TABLET 200 MG PO (20:10)
[2023-12-13] MEDS: ACETAMINOPHEN 325 MG TABLET 650 MG PO (20:14)
[2023-12-13 20:19] LABS: Pneumococcal Antigen Urine NOT DETECTED
[2023-12-14] VITALS (20 sets, daily range): BP systolic 126–146; BP diastolic 55–64; PULSE 68–96; RESP 16–20; TEMP 36.4–36.8; O2SAT 92–95
[2023-12-14] MEDS: IPRATROPIUM 0.5 MG/ALBUTEROL SULFATE 2.5 MG AMPUL.NEB 3 ML INHALATION ×4 (02:05→20:15)
[2023-12-14] MEDS: LEVOTHYROXINE SODIUM 75 MCG TABLET PO (03:09)
[2023-12-14] MEDS: ONDANSETRON INJ 4 MG/2 ML VIAL IV PUSH ×2 (03:09→09:42)
[2023-12-14 04:25] LABS: Basophils Percent Auto 0.5 % (0.2-1.2); Eosinophils Absolute Auto 0.2 K/mm3 (0-0.3); Eosinophils Percent Auto 3.3 % (0-4.4); Hematocrit 28.9 % (37.0-47.0); Hemoglobin 8.4 g/dL (12.0-15.0); Immature Granulocyte Absolute 0.03 K/mm3 (0.00-0.031); Immature Granulocyte Percent A 0.5 % (0-0.5); Lymphocytes Absolute Auto 1.15 K/mm3 (0.9-3.2); Lymphocytes Percent Auto 19.8 % (18.3-44.2); Mean Corpuscular HGB Conc 29.1 g/dl (32-36); Mean Corpuscular Hemoglobin 26.8 pg (26-34); Mean Corpuscular Volume 92.3 fl (80-100); Mean Platelet Volume 10.4 fl (7.4-10.4); Monocytes Absolute Auto 0.4 K/mm3 (0.1-0.6); Monocytes Percent Auto 7.4 % (2.6-8.5); Neutrophils Percent Auto 68.5 % (45.5-73.1); Platelet Count Result 181 k/mm3 (150-375); Red Blood Count 3.13 M/mm3 (4.2-5.4); White Blood Count 5.8 K/mm3 (4.5-10.0)
[2023-12-14 04:40] LABS: Alanine Aminotransferase 20 U/L (6-35); Albumin Level 3.4 g/dL (3.5-5.1); Alkaline Phosphatase 126 U/L (38-126); Aspartate Amino Transferase 32 U/L (14-36); Bilirubin,Total 0.7 mg/dL (0.2-1.3); Blood Urea Nitrogen 23 mg/dL (7-17); Calcium 8.7 mg/dL (8.4-10.2); Carbon Dioxide > 40 mmol/L (22-30); Chloride 95 mmol/L (98-107); Estimated CRCL calculation 51 ml/min; Estimated Glomerular Filt Rate 48; Glucose 124 mg/dL (65-110); Magnesium 2.4 mg/dL (1.6-2.3); Potassium 3.7 mmol/L (3.4-5.0); Sodium 139 mmol/L (137-145)
[2023-12-14 05:15] LABS: Anisocytosis 1+; Hypochromasia 1+; Platelet Estimate Adequate (Adequate); Schistocytes None Seen
[2023-12-14] MEDS: busPIRone HCL 5 MG TABLET 15 MG PO ×3 (09:39→17:52)
[2023-12-14] MEDS: SUCRALFATE 1 GM TABLET PO (09:40)
[2023-12-14] MEDS: guaiFENesin 12 HR 600 MG TABCR PO ×2 (09:40→20:12)
[2023-12-14] MEDS: BENZONATATE 100 MG CAPSULE PO ×3 (09:40→17:53)
[2023-12-14] MEDS: APIXABAN 5 MG TABLET PO ×2 (09:40→20:12)
[2023-12-14] MEDS: dilTIAZem HCL CD 300 MG CAP.24HR PO (09:40)
[2023-12-14] MEDS: SPIRONOLACTONE 25 MG TABLET PO (09:40)
[2023-12-14] MEDS: DOXYCYCLINE HYCLATE 100 MG TABLET PO ×2 (09:40→20:12)
[2023-12-14] MEDS: MULTIVITAMINS THERAPEUTIC TAB (*BKC) 1 TABLET PO (09:40)
[2023-12-14] MEDS: PANTOPRAZOLE 40 MG TABLET PO ×2 (09:41→17:53)
[2023-12-14] MEDS: EMPAGLIFLOZIN 10 MG TABLET PO (09:41)
[2023-12-14] MEDS: METOPROLOL TARTRATE 25 MG TABLET PO ×2 (09:41→20:12)
[2023-12-14] MEDS: PARoxetine 10 MG TABLET PO (09:41)
[2023-12-14] MEDS: QUEtiapine FUMARATE 100 MG TABLET PO ×2 (09:41→14:04)
[2023-12-14] MEDS: POTASSIUM CHLORIDE 20 MEQ ER TABLET 40 MEQ PO (09:41)
[2023-12-14] MEDS: lamoTRIgine 100 MG TABLET PO (09:41)
[2023-12-14] MEDS: FERROUS SULFATE 325 MG TABLET DR BY MOUTH (09:41)
--- NOTE | 2023-12-14 10:04 | ECG_ITS ---
SEE SCANNED COPY FOR CONFIRMED REPORT MTDD
--- NOTE | 2023-12-14 12:24 | PM.IMPN ---
Progress Note: A&P Assessment and Plan (1) Atrial fibrillation with RVR: Code(s): I48.91 - Unspecified atrial fibrillation Status: Acute Assessment and Plan: Patient presented with fall and found to have AFib with RVR treated with diltiazem drip. She has chronic AFib and was on metoprolol 12.5mg Q12hr and Eliquis 5mg Q12h at home Weaned to oral diltiazem. She was continued on metoprolol and Eliquis BP stable. HR well controlled TSH normal in October Continue the same. Repeat EKG today with rate controlled (2) CHF (congestive heart failure), NYHA class I: Code(s): I50.9 - Heart failure, unspecified Status: Chronic Assessment and Plan: CXR on admission showing mild interstitial edema. BNP 2109. Troponin negative x3. Bumex continued on admisison. Echo October 2023 showing LVH with normal size and fxn with EF 60-65% and Grade I diastolic dysfunction. Mild RV and LA enlargement. Patient with acute on chronic diastolic CHF. Lasix 40mg IV BID started 12/05 and increased to 80mg IV BID. She remains on oral Bumex CXR 12/06 showing mild pulmonary edema and CMG - images reviewed Still SOB with inspiratory crackles but clinically does not appear to be fluid overloaded. Monitor renal function with diuresis Resume Bumex 2 mg b.i.d. CRF stage3 creatinine 1.20 Also on Jardiance Chest x-ray with interstitial edema. D-dimer elevated. CTA does 1 acute contrast IV will do V/Q scan if feasible CT chest to further evaluate without contrast For stridor will also get CT neck however could not be done as she could not lay flat Will switch to Bumex IV today (3) Gait abnormality: Code(s): R26.9 - Unspecified abnormalities of gait and mobility Status: Acute Assessment and Plan: Plan for SNF/alf placement as she is not able to ambulate well enough to return home alone at this time. (4) Chronic respiratory failure requiring treatment with nocturnal BPAP by mask: Code(s): J96.10 - Chronic respiratory failure, unspecified whether with hypoxia or hypercapnia; Z99.89 - Dependence on other enabling machines and devices Status: Chronic Assessment and Plan: Patient reports compliance with BiPAP at home. Continue at night and with naps continue nebulizer treatment. Continue doxycycline and ceftriaxone started since 12/09/23 still diuretics. Continue Tessalon Perles for cough Switch to DuoNeb Add Solu Medrol with ongoing wheezing a Pulmicort (5) Morbid obesity with BMI of 70 and over, adult: Code(s): E66.01 - Morbid (severe) obesity due to excess calories; Z68.45 - Body mass index [BMI] 70 or greater, adult Status: Chronic Assessment and Plan: OBESITY Monitor physical inactivity. Stress monitoring and eating disorder. Referral to weight loss clinic. Weight bias and stigma screening BMI Class Diet and exercise counseling done (6) Anemia: Qualifiers: Anemia type: iron deficiency Code(s): D64.9 - Anemia, unspecified Status: Acute Assessment and Plan: ANEMIA Iron supplement Check for chronic renal failure monitor H&H 8.09/06 currently stable continue to monitor continue Carafate Plan Elevated D-dimer order V/Q scan which is patient also already on Eliquis DVT prophylaxis - Eliquis Code status - full Subjective Date/time seen: 12/14/23 12:24 Interval history: Reports feeling more short of breath. Wheezy As well. She could not lay flat to get the CT scan done. She states she has never been able to lay flat because of her breathing issue. Review of Systems Review of Systems: All systems reviewed & are unremarkable except as noted in HPI and below Exam Narrative: GENERAL: Well appearing, no acute distress. morbid obesity HEAD: Normocephalic, atraumatic. NECK: Supple. No adenopathy, no masses. RESPIRATORY: respirations nonlabored. , has rales, has wheezing. CARDIOVASCULAR: Reg
[2023-12-14] MEDS: BUMETANIDE INJ 1 MG/4 ML VIAL IV PUSH ×2 (12:44→17:52)
[2023-12-14] MEDS: TOLNAFTATE 1% POWDER 45 GM BTL 1 APPLIC TOPICAL ×4 (12:44→20:14)
[2023-12-14] MEDS: EUCERIN CREAM 120 GM JAR 1 APPLIC TOPICAL (12:44)
[2023-12-14] MEDS: acetaZOLAMIDE SODIUM FOR INJ 500 MG VIAL 250 MG IV PUSH (14:04)
[2023-12-14] MEDS: methylPREDNISolone SOD SUCC 40 MG VIAL IV PUSH ×2 (14:04→21:00)
[2023-12-14 14:20] LABS: Troponin I < 0.012 ng/mL (0.000-0.034)
[2023-12-14] MEDS: QUEtiapine FUMARATE 100 MG TABLET 200 MG PO (20:12)
[2023-12-14] MEDS: SENNA/DOCUSATE SODIUM TABLET 1 TAB PO (20:12)
[2023-12-14] MEDS: BUDESONIDE RESPULE NEB 0.5 MG/2 ML AMP INHALATION (20:16)
[2023-12-15] VITALS (23 sets, daily range): BP systolic 109–117; BP diastolic 45–55; PULSE 61–82; RESP 18–21; TEMP 36.3–36.8; O2SAT 92–100
[2023-12-15] MEDS: IPRATROPIUM 0.5 MG/ALBUTEROL SULFATE 2.5 MG AMPUL.NEB 3 ML INHALATION ×4 (03:21→19:17)
[2023-12-15 05:18] LABS: Basophils Percent Auto 0.2 % (0.2-1.2); Hematocrit 30.9 % (37.0-47.0); Hemoglobin 8.8 g/dL (12.0-15.0); Immature Granulocyte Absolute 0.03 K/mm3 (0.00-0.031); Immature Granulocyte Percent A 0.5 % (0-0.5); Lymphocytes Absolute Auto 0.58 K/mm3 (0.9-3.2); Mean Corpuscular HGB Conc 28.5 g/dl (32-36); Mean Corpuscular Hemoglobin 26.5 pg (26-34); Mean Corpuscular Volume 93.1 fl (80-100); Mean Platelet Volume 10.4 fl (7.4-10.4); Monocytes Absolute Auto 0.1 K/mm3 (0.1-0.6); Monocytes Percent Auto 1.2 % (2.6-8.5); Neutrophils Absolute Auto 5.1 K/mm3 (1.3-6.7); Neutrophils Percent Auto 88.1 % (45.5-73.1); Platelet Count Result 206 k/mm3 (150-375); Red Blood Count 3.32 M/mm3 (4.2-5.4); Red Cell Distribution Width 16.7 % (11.5-14.5); White Blood Count 5.8 K/mm3 (4.5-10.0)
[2023-12-15 05:26] LABS: Alanine Aminotransferase 19 U/L (6-35); Albumin Level 3.3 g/dL (3.5-5.1); Alkaline Phosphatase 117 U/L (38-126); Aspartate Amino Transferase 26 U/L (14-36); Bilirubin,Total 0.5 mg/dL (0.2-1.3); Blood Urea Nitrogen 23 mg/dL (7-17); Calcium 8.8 mg/dL (8.4-10.2); Carbon Dioxide > 40 mmol/L (22-30); Chloride 97 mmol/L (98-107); Estimated CRCL calculation 71 ml/min; Estimated Glomerular Filt Rate 40; Glucose 168 mg/dL (65-110); Magnesium 2.6 mg/dL (1.6-2.3); Potassium 4.1 mmol/L (3.4-5.0); Sodium 138 mmol/L (137-145)
[2023-12-15] MEDS: methylPREDNISolone SOD SUCC 40 MG VIAL IV PUSH ×3 (05:41→21:31)
[2023-12-15] MEDS: LEVOTHYROXINE SODIUM 75 MCG TABLET PO (05:42)
[2023-12-15 07:22] LABS: Hypochromasia 1+; Platelet Estimate Adequate (Adequate); Schistocytes None Seen
[2023-12-15] MEDS: BUDESONIDE RESPULE NEB 0.5 MG/2 ML AMP INHALATION ×2 (09:06→19:17)
[2023-12-15] MEDS: SPIRONOLACTONE 25 MG TABLET PO (09:18)
[2023-12-15] MEDS: SUCRALFATE 1 GM TABLET PO (09:18)
[2023-12-15] MEDS: dilTIAZem HCL CD 300 MG CAP.24HR PO (09:18)
[2023-12-15] MEDS: PARoxetine 10 MG TABLET PO (09:18)
[2023-12-15] MEDS: DOXYCYCLINE HYCLATE 100 MG TABLET PO (09:18)
[2023-12-15] MEDS: POTASSIUM CHLORIDE 20 MEQ ER TABLET 40 MEQ PO (09:18)
[2023-12-15] MEDS: FERROUS SULFATE 325 MG TABLET DR BY MOUTH (09:18)
[2023-12-15] MEDS: QUEtiapine FUMARATE 100 MG TABLET PO ×2 (09:18→14:44)
[2023-12-15] MEDS: BENZONATATE 100 MG CAPSULE PO ×3 (09:18→16:19)
[2023-12-15] MEDS: guaiFENesin 12 HR 600 MG TABCR PO ×2 (09:18→21:30)
[2023-12-15] MEDS: METOPROLOL TARTRATE 25 MG TABLET PO ×2 (09:19→21:30)
[2023-12-15] MEDS: EMPAGLIFLOZIN 10 MG TABLET PO (09:19)
[2023-12-15] MEDS: PANTOPRAZOLE 40 MG TABLET PO ×2 (09:19→16:19)
[2023-12-15] MEDS: APIXABAN 5 MG TABLET PO ×2 (09:19→21:31)
[2023-12-15] MEDS: busPIRone HCL 5 MG TABLET 15 MG PO ×3 (09:19→16:18)
[2023-12-15] MEDS: MULTIVITAMINS THERAPEUTIC TAB (*BKC) 1 TABLET PO (09:19)
[2023-12-15] MEDS: lamoTRIgine 100 MG TABLET PO (09:19)
[2023-12-15] MEDS: TOLNAFTATE 1% POWDER 45 GM BTL 1 APPLIC TOPICAL ×2 (09:20)
[2023-12-15] MEDS: EUCERIN CREAM 120 GM JAR 1 APPLIC TOPICAL (09:21)
[2023-12-15] MEDS: BUMETANIDE INJ 1 MG/4 ML VIAL IV PUSH ×2 (09:51→16:18)
[2023-12-15] MEDS: acetaZOLAMIDE SODIUM FOR INJ 500 MG VIAL 250 MG IV PUSH (09:52)
--- NOTE | 2023-12-15 12:27 | PM.IMPN ---
Progress Note: A&P Assessment and Plan (1) Atrial fibrillation with RVR: Code(s): I48.91 - Unspecified atrial fibrillation Status: Acute Assessment and Plan: Patient presented with fall and found to have AFib with RVR treated with diltiazem drip. She has chronic AFib and was on metoprolol 12.5mg Q12hr and Eliquis 5mg Q12h at home Weaned to oral diltiazem. She was continued on metoprolol and Eliquis BP stable. HR well controlled TSH normal in October Continue the same. Repeat EKG with rate controlled (2) CHF (congestive heart failure), NYHA class I: Code(s): I50.9 - Heart failure, unspecified Status: Chronic Assessment and Plan: CXR on admission showing mild interstitial edema. BNP 0. Troponin negative x3. Bumex continued on admisison. Echo October 2023 showing LVH with normal size and fxn with EF 60-65% and Grade I diastolic dysfunction. Mild RV and LA enlargement. Patient with acute on chronic diastolic CHF. Lasix 40mg IV BID started 12/05 and increased to 80mg IV BID. She remains on oral Bumex CXR 12/06 showing mild pulmonary edema and CMG - images reviewed Still SOB with inspiratory crackles but clinically does not appear to be fluid overloaded. Monitor renal function with diuresis Resume Bumex 2 mg b.i.d. CRF stage3 creatinine 1.20 Also on Jardiance Chest x-ray with interstitial edema. D-dimer elevated. CTA does 1 acute contrast IV will do V/Q scan if feasible CT chest to further evaluate without contrast For stridor will also get CT neck however could not be done as she could not lay flat this is improved with DuoNeb Switched to IV Bumex which will be continued today Monitor creatinine Will consult Cardiology (3) Gait abnormality: Code(s): R26.9 - Unspecified abnormalities of gait and mobility Status: Acute Assessment and Plan: Plan for SNF/senior living placement as she is not able to ambulate well enough to return home alone at this time. (4) Chronic respiratory failure requiring treatment with nocturnal BPAP by mask: Code(s): J96.10 - Chronic respiratory failure, unspecified whether with hypoxia or hypercapnia; Z99.89 - Dependence on other enabling machines and devices Status: Chronic Assessment and Plan: Patient reports compliance with BiPAP at home. Continue at night and with naps continue nebulizer treatment. Continue doxycycline and ceftriaxone started since 12/09/23 still diuretics. Continue Tessalon Perles for cough Switch to DuoNeb Add Solu Medrol with ongoing wheezing and Pulmicort (5) Morbid obesity with BMI of 70 and over, adult: Code(s): E66.01 - Morbid (severe) obesity due to excess calories; Z68.45 - Body mass index [BMI] 70 or greater, adult Status: Chronic Assessment and Plan: OBESITY Monitor physical inactivity. Stress monitoring and eating disorder. Referral to weight loss clinic. Weight bias and stigma screening BMI Class Diet and exercise counseling done (6) Anemia: Qualifiers: Anemia type: iron deficiency Code(s): D64.9 - Anemia, unspecified Status: Acute Assessment and Plan: ANEMIA Iron supplement Check for chronic renal failure monitor H&H 8.09/06 currently stable continue to monitor continue Carafate Plan Elevated D-dimer ordered V/Q scan which could not be done due to body habitus. Patient also already on Eliquis DVT prophylaxis - Eliquis Code status - full Subjective Date/time seen: 12/15/23 12:27 Interval history: Patient will get a CT scan done as she could not lay flat. Still has ongoing issue with shortness of breath. No chest pain reported. No cough. Leg swelling improving Review of Systems Review of Systems: All systems reviewed & are unremarkable except as noted in HPI and below Exam Narrative: GENERAL: Well appearing, no acute distress. morbid obesity HEAD: Normocephalic, atraumatic. NECK: Suppl
[2023-12-15 16:37] LABS: Legionella pneumophila Ag Ur NOT DETECTED
[2023-12-15] MEDS: QUEtiapine FUMARATE 100 MG TABLET 200 MG PO (21:30)
[2023-12-15] MEDS: SENNA/DOCUSATE SODIUM TABLET 1 TAB PO (21:30)
[2023-12-16] VITALS (24 sets, daily range): BP systolic 114–129; BP diastolic 51–62; PULSE 49–77; RESP 15–20; TEMP 35.7–36.4; O2SAT 98–100
[2023-12-16] MEDS: IPRATROPIUM 0.5 MG/ALBUTEROL SULFATE 2.5 MG AMPUL.NEB 3 ML INHALATION ×4 (02:24→20:52)
[2023-12-16 05:39] LABS: Basophils Percent Auto 0.1 % (0.2-1.2); Hematocrit 31.4 % (37.0-47.0); Hemoglobin 8.9 g/dL (12.0-15.0); Immature Granulocyte Absolute 0.04 K/mm3 (0.00-0.031); Immature Granulocyte Percent A 0.5 % (0-0.5); Lymphocytes Absolute Auto 0.62 K/mm3 (0.9-3.2); Lymphocytes Percent Auto 7.5 % (18.3-44.2); Mean Corpuscular HGB Conc 28.3 g/dl (32-36); Mean Corpuscular Hemoglobin 26.3 pg (26-34); Mean Corpuscular Volume 92.9 fl (80-100); Monocytes Absolute Auto 0.2 K/mm3 (0.1-0.6); Monocytes Percent Auto 2.3 % (2.6-8.5); Neutrophils Absolute Auto 7.4 K/mm3 (1.3-6.7); Neutrophils Percent Auto 89.6 % (45.5-73.1); Platelet Count Result 194 k/mm3 (150-375); Red Blood Count 3.38 M/mm3 (4.2-5.4); Red Cell Distribution Width 16.8 % (11.5-14.5); White Blood Count 8.2 K/mm3 (4.5-10.0)
[2023-12-16] MEDS: methylPREDNISolone SOD SUCC 40 MG VIAL IV PUSH ×2 (05:50→13:52)
[2023-12-16] MEDS: LEVOTHYROXINE SODIUM 75 MCG TABLET PO (05:50)
[2023-12-16 05:53] LABS: Alanine Aminotransferase 22 U/L (6-35); Albumin Level 3.4 g/dL (3.5-5.1); Alkaline Phosphatase 110 U/L (38-126); Anion Gap 2 mmol/L (4-12); Aspartate Amino Transferase 28 U/L (14-36); Bilirubin,Total 0.4 mg/dL (0.2-1.3); Blood Urea Nitrogen 32 mg/dL (7-17); Calcium 9.1 mg/dL (8.4-10.2); Carbon Dioxide 36 mmol/L (22-30); Chloride 100 mmol/L (98-107); Estimated CRCL calculation 71 ml/min; Estimated Glomerular Filt Rate 40; Glucose 185 mg/dL (65-110); Magnesium 2.7 mg/dL (1.6-2.3); Potassium 4.2 mmol/L (3.4-5.0); Sodium 138 mmol/L (137-145)
[2023-12-16 06:34] LABS: Anisocytosis 1+; Hypochromasia 1+; Platelet Estimate Adequate (Adequate); Schistocytes None Seen
[2023-12-16] MEDS: BUDESONIDE RESPULE NEB 0.5 MG/2 ML AMP INHALATION ×2 (08:23→20:52)
[2023-12-16] MEDS: MULTIVITAMINS THERAPEUTIC TAB (*BKC) 1 TABLET PO (09:07)
[2023-12-16] MEDS: SUCRALFATE 1 GM TABLET PO (09:07)
[2023-12-16] MEDS: busPIRone HCL 5 MG TABLET 15 MG PO ×3 (09:07→16:34)
[2023-12-16] MEDS: PANTOPRAZOLE 40 MG TABLET PO ×2 (09:07→16:35)
[2023-12-16] MEDS: BENZONATATE 100 MG CAPSULE PO ×3 (09:07→16:34)
[2023-12-16] MEDS: APIXABAN 5 MG TABLET PO ×2 (09:07→20:27)
[2023-12-16] MEDS: QUEtiapine FUMARATE 100 MG TABLET PO ×2 (09:07→14:31)
[2023-12-16] MEDS: lamoTRIgine 100 MG TABLET PO (09:08)
[2023-12-16] MEDS: EMPAGLIFLOZIN 10 MG TABLET PO (09:08)
[2023-12-16] MEDS: guaiFENesin 12 HR 600 MG TABCR PO ×2 (09:08→20:27)
[2023-12-16] MEDS: METOPROLOL TARTRATE 25 MG TABLET PO ×2 (09:08→20:27)
[2023-12-16] MEDS: dilTIAZem HCL CD 300 MG CAP.24HR PO (09:08)
[2023-12-16] MEDS: FERROUS SULFATE 325 MG TABLET DR BY MOUTH (09:08)
[2023-12-16] MEDS: SPIRONOLACTONE 25 MG TABLET PO (09:08)
[2023-12-16] MEDS: PARoxetine 10 MG TABLET PO (09:08)
[2023-12-16] MEDS: POTASSIUM CHLORIDE 20 MEQ ER TABLET 40 MEQ PO (09:09)
[2023-12-16] MEDS: BUMETANIDE INJ 1 MG/4 ML VIAL IV PUSH ×2 (09:09→16:34)
[2023-12-16] MEDS: TOLNAFTATE 1% POWDER 45 GM BTL 1 APPLIC TOPICAL ×2 (09:10→09:11)
[2023-12-16] MEDS: EUCERIN CREAM 120 GM JAR 1 APPLIC TOPICAL (09:11)
[2023-12-16] MEDS: acetaZOLAMIDE SODIUM FOR INJ 500 MG VIAL 250 MG IV PUSH (09:31)
[2023-12-16] MEDS: WATER, STERILE FOR INJECTION 10 ML VIAL XX (09:31)
--- NOTE | 2023-12-16 13:38 | PM.CNCAR ---
Assessment and Plan Assessment and plan (1) Atrial fibrillation with RVR: Code(s): I48.91 - Unspecified atrial fibrillation Status: Acute Assessment and Plan: Now rate controlled. Continue Metoprolol, Diltiazem, Eliquis. (2) Acute exacerbation of CHF (congestive heart failure): Qualifiers: Heart failure type: unspecified Qualified Code(s): I50.9 - Heart failure, unspecified Code(s): I50.9 - Heart failure, unspecified Status: Acute Assessment and Plan: Has some pulmonary edema. Continue with IV Bumex and Acetazolamide for now. Please monitor strict I/Os. (3) Bilateral edema of lower extremity: Code(s): R60.0 - Localized edema Status: Acute Assessment and Plan: Has chronic lymphedema (4) Morbid obesity with BMI of 70 and over, adult: Code(s): E66.01 - Morbid (severe) obesity due to excess calories; Z68.45 - Body mass index [BMI] 70 or greater, adult Status: Chronic (5) Acute respiratory failure with hypoxia and hypercarbia: Code(s): J96.01 - Acute respiratory failure with hypoxia; J96.02 - Acute respiratory failure with hypercapnia Status: Acute Assessment and Plan: Continue diuresis as noted above. Audibly wheezing -- on Solumedrol per primary team. History of Present Illness History of Present Illness Consult date/time: 12/16/23 13:38 Requesting physician: Jeremiah Castellon MD Consult reason: congestive heart failure Reason For Visit: A Fib RVR Narrative: This is a 48 year old female with morbid obesity, chronic lymphedema, atrial fibrillation who was initially admitted on 12/01 after a fall. Had some AFIB with RVR that improved with Diltiazem drip. Has been having shortness of breath since admission. CXR on 12/11 showed interstitial edema. She normally takes Bumex 2mg BID at home, has been started on IV Bumex 1mg BID, along with Acetazolamide. Has been wheezing as well. Has chronic lymphedema, however, patient states her swelling has gotten a little better. TTE 10/2023 showed LVEF 60-65%, grade 1 diastolic dysfunction, no valvular disease. Telemetry shows rate controlled AFIB. Review of Systems Review of Systems: All systems reviewed & are unremarkable except as noted in HPI and below (HPI) [facility] Past Medical History Medical History Anxiety CHF (congestive heart failure), NYHA class I Chronic respiratory failure requiring treatment with nocturnal BPAP by mask Essential (primary) hypertension H/O adenomatous polyp of colon Hypertension associated with diabetes Hypothyroidism, unspecified Idiopathic peripheral neuropathy Irritable bowel syndrome with diarrhea Lymphedema of both lower extremities Magnesium deficiency Moderate major depression Morbid obesity Paroxysmal A-fib Psoriasis Restless leg syndrome Stasis dermatitis Type 2 diabetes mellitus without complications Vitamin B12 deficiency Vitamin D deficiency Surgical History Surgical History H/O arthroscopic knee surgery H/O section X1 H/O dilation and curettage History of tonsillectomy and adenoidectomy Hx of cholecystectomy Family History Family History Mother Hypertension Sibling Hypertension Family history of congestive heart failure Other Family history of arthritis Social History Social History Social History: Prior to her recent hospitalizations she lives alone. She had 1 child. She is single and disabled. Code status: Full code Smoking status: Never smoker Second hand tobacco smoke exposure: No Alcohol intake: never Substance use: never Substance use type: does not use Do You Feel Safe in your Home?: Yes Lack of Transportation: YES Lack of Food: Sometimes True Current Housing: I Have Housing
--- NOTE | 2023-12-16 14:55 | PM.IMPN ---
Progress Note: A&P Assessment and Plan (1) Atrial fibrillation with RVR: Code(s): I48.91 - Unspecified atrial fibrillation Status: Acute Assessment and Plan: Patient presented with fall and found to have AFib with RVR treated with diltiazem drip. She has chronic AFib and was on metoprolol 12.5mg Q12hr and Eliquis 5mg Q12h at home Weaned to oral diltiazem. She was continued on metoprolol and Eliquis BP stable. HR well controlled TSH normal in October Continue the same. Repeat EKG with rate controlled (2) CHF (congestive heart failure), NYHA class I: Code(s): I50.9 - Heart failure, unspecified Status: Chronic Assessment and Plan: CXR on admission showing mild interstitial edema. BNP 0. Troponin negative x3. Bumex continued on admisison. Echo October 2023 showing LVH with normal size and fxn with EF 60-65% and Grade I diastolic dysfunction. Mild RV and LA enlargement. Patient with acute on chronic diastolic CHF. Lasix 40mg IV BID started 12/05 and increased to 80mg IV BID. She remains on oral Bumex CXR 12/06 showing mild pulmonary edema and CMG - images reviewed Still SOB with inspiratory crackles but clinically does not appear to be fluid overloaded. Monitor renal function with diuresis Resume Bumex 2 mg b.i.d. CRF stage3 creatinine 1.20 Also on Jardiance Chest x-ray with interstitial edema. D-dimer elevated. CTA does 1 acute contrast IV will do V/Q scan if feasible CT chest to further evaluate without contrast For stridor will also get CT neck however could not be done as she could not lay flat this is improved with DuoNeb Switched to IV Bumex which will be continued Monitor creatinine Consulted cardiology (3) Gait abnormality: Code(s): R26.9 - Unspecified abnormalities of gait and mobility Status: Acute Assessment and Plan: Plan for SNF/correction placement as she is not able to ambulate well enough to return home alone at this time. (4) Chronic respiratory failure requiring treatment with nocturnal BPAP by mask: Code(s): J96.10 - Chronic respiratory failure, unspecified whether with hypoxia or hypercapnia; Z99.89 - Dependence on other enabling machines and devices Status: Chronic Assessment and Plan: Patient reports compliance with BiPAP at home. Continue at night and with naps continue nebulizer treatment. Continue doxycycline and ceftriaxone started since 12/09/23 completed antibiotics course still diuretics. Continue Tessalon Perles for cough Switch to DuoNeb Add Solu Medrol with ongoing wheezing and Pulmicort Will switch Solu-Medrol to prednisone today. (5) Morbid obesity with BMI of 70 and over, adult: Code(s): E66.01 - Morbid (severe) obesity due to excess calories; Z68.45 - Body mass index [BMI] 70 or greater, adult Status: Chronic Assessment and Plan: OBESITY Monitor physical inactivity. Stress monitoring and eating disorder. Referral to weight loss clinic. Weight bias and stigma screening BMI Class Diet and exercise counseling done (6) Anemia: Qualifiers: Anemia type: iron deficiency Code(s): D64.9 - Anemia, unspecified Status: Acute Assessment and Plan: ANEMIA Iron supplement Check for chronic renal failure monitor H&H 8.09/06 currently stable continue to monitor continue Carafate Plan Elevated D-dimer ordered V/Q scan which could not be done due to body habitus. Patient also already on Eliquis DVT prophylaxis - Eliquis Code status - full Subjective Date/time seen: 12/16/23 14:55 Interval history: No overnight events. Shortness of breath on exertion persists unchanged from yesterday. On and off wheezy. Uses BiPAP at night Review of Systems Review of Systems: All systems reviewed & are unremarkable except as noted in HPI and below Exam Narrative: GENERAL: Well appearing, no acute distress. morbid obesity HEAD: Normocephalic
[2023-12-16] MEDS: QUEtiapine FUMARATE 100 MG TABLET 200 MG PO (20:27)
[2023-12-16] MEDS: SENNA/DOCUSATE SODIUM TABLET 1 TAB PO (20:27)
[2023-12-17] VITALS (22 sets, daily range): BP systolic 117–123; BP diastolic 42–58; PULSE 58–72; RESP 12–20; TEMP 36–36.7; O2SAT 91–100
[2023-12-17] MEDS: IPRATROPIUM 0.5 MG/ALBUTEROL SULFATE 2.5 MG AMPUL.NEB 3 ML INHALATION ×4 (02:11→20:08)
[2023-12-17 05:27] LABS: Basophils Percent Auto 0.1 % (0.2-1.2); Hematocrit 31.8 % (37.0-47.0); Hemoglobin 8.9 g/dL (12.0-15.0); Immature Granulocyte Absolute 0.02 K/mm3 (0.00-0.031); Immature Granulocyte Percent A 0.3 % (0-0.5); Lymphocytes Absolute Auto 0.66 K/mm3 (0.9-3.2); Lymphocytes Percent Auto 8.8 % (18.3-44.2); Mean Corpuscular Hemoglobin 25.9 pg (26-34); Mean Corpuscular Volume 92.7 fl (80-100); Mean Platelet Volume 10.4 fl (7.4-10.4); Monocytes Absolute Auto 0.3 K/mm3 (0.1-0.6); Monocytes Percent Auto 4.1 % (2.6-8.5); Neutrophils Absolute Auto 6.5 K/mm3 (1.3-6.7); Neutrophils Percent Auto 86.7 % (45.5-73.1); Platelet Count Result 208 k/mm3 (150-375); Red Blood Count 3.43 M/mm3 (4.2-5.4); Red Cell Distribution Width 16.9 % (11.5-14.5); White Blood Count 7.5 K/mm3 (4.5-10.0)
[2023-12-17 05:39] LABS: Alanine Aminotransferase 31 U/L (6-35); Albumin Level 3.5 g/dL (3.5-5.1); Alkaline Phosphatase 108 U/L (38-126); Anion Gap 0 mmol/L (4-12); Aspartate Amino Transferase 34 U/L (14-36); Bilirubin,Total 0.4 mg/dL (0.2-1.3); Blood Urea Nitrogen 40 mg/dL (7-17); Carbon Dioxide 38 mmol/L (22-30); Chloride 99 mmol/L (98-107); Estimated CRCL calculation 71 ml/min; Estimated Glomerular Filt Rate 40; Glucose 167 mg/dL (65-110); Magnesium 2.8 mg/dL (1.6-2.3); Potassium 4.1 mmol/L (3.4-5.0); Sodium 137 mmol/L (137-145)
[2023-12-17 05:47] LABS: Anisocytosis 1+; Hypochromasia 1+; Platelet Estimate Adequate (Adequate); Schistocytes None Seen
[2023-12-17] MEDS: LEVOTHYROXINE SODIUM 75 MCG TABLET PO (06:06)
[2023-12-17] MEDS: BUDESONIDE RESPULE NEB 0.5 MG/2 ML AMP INHALATION ×2 (07:27→20:08)
[2023-12-17] MEDS: FERROUS SULFATE 325 MG TABLET DR BY MOUTH (08:18)
[2023-12-17] MEDS: METOPROLOL TARTRATE 25 MG TABLET PO ×2 (08:18→21:24)
[2023-12-17] MEDS: predniSONE 20 MG TABLET 40 MG PO (08:18)
[2023-12-17] MEDS: guaiFENesin 12 HR 600 MG TABCR PO ×2 (08:18→21:39)
[2023-12-17] MEDS: busPIRone HCL 5 MG TABLET 15 MG PO ×3 (08:18→17:59)
[2023-12-17] MEDS: dilTIAZem HCL CD 300 MG CAP.24HR PO (08:18)
[2023-12-17] MEDS: QUEtiapine FUMARATE 100 MG TABLET PO ×2 (08:19→15:47)
[2023-12-17] MEDS: PARoxetine 10 MG TABLET PO (08:19)
[2023-12-17] MEDS: MULTIVITAMINS THERAPEUTIC TAB (*BKC) 1 TABLET PO (08:19)
[2023-12-17] MEDS: EMPAGLIFLOZIN 10 MG TABLET PO (08:19)
[2023-12-17] MEDS: lamoTRIgine 100 MG TABLET PO (08:19)
[2023-12-17] MEDS: PANTOPRAZOLE 40 MG TABLET PO ×2 (08:19→17:59)
[2023-12-17] MEDS: BENZONATATE 100 MG CAPSULE PO ×3 (08:19→17:59)
[2023-12-17] MEDS: APIXABAN 5 MG TABLET PO ×2 (08:19→21:24)
[2023-12-17] MEDS: POTASSIUM CHLORIDE 20 MEQ ER TABLET 40 MEQ PO (08:19)
[2023-12-17] MEDS: SUCRALFATE 1 GM TABLET PO (08:19)
[2023-12-17] MEDS: SPIRONOLACTONE 25 MG TABLET PO (08:19)
[2023-12-17] MEDS: acetaZOLAMIDE SODIUM FOR INJ 500 MG VIAL 250 MG IV PUSH (08:20)
[2023-12-17] MEDS: TOLNAFTATE 1% POWDER 45 GM BTL 1 APPLIC TOPICAL ×4 (08:20→21:39)
[2023-12-17] MEDS: EUCERIN CREAM 120 GM JAR 1 APPLIC TOPICAL (08:20)
[2023-12-17] MEDS: BUMETANIDE INJ 1 MG/4 ML VIAL IV PUSH ×2 (08:20→17:59)
[2023-12-17] MEDS: WATER, STERILE FOR INJECTION 10 ML VIAL XX (08:21)
--- NOTE | 2023-12-17 10:58 | PM.IMPN ---
Progress Note: A&P Assessment and Plan (1) Atrial fibrillation with RVR: Code(s): I48.91 - Unspecified atrial fibrillation Status: Acute (2) Acute exacerbation of CHF (congestive heart failure): Qualifiers: Heart failure type: unspecified Qualified Code(s): I50.9 - Heart failure, unspecified Code(s): I50.9 - Heart failure, unspecified Status: Acute Plan (1) Atrial fibrillation with RVR: ?Code(s): I48.91 - Unspecified atrial fibrillation ?Status:?Acute ?Assessment and Plan: Patient presented with fall and found to have AFib with RVR treated with diltiazem drip. She has chronic AFib and was on metoprolol 12.5mg Q12hr and Eliquis 5mg Q12h at home Weaned to oral diltiazem. She was continued on metoprolol and Eliquis BP stable. HR well controlled TSH normal in October Continue the same. Repeat EKG with rate controlled (2) CHF (congestive heart failure), NYHA class I: ?Code(s): I50.9 - Heart failure, unspecified ?Status:?Chronic ?Assessment and Plan: CXR on admission showing mild interstitial edema. BNP 2109. Troponin negative x3. Bumex continued on admisison. Echo October 2023 showing LVH with normal size and fxn with EF 60-65% and Grade I diastolic dysfunction. Mild RV and LA enlargement. Patient with acute on chronic diastolic CHF. Lasix 40mg IV BID started 12/05 and increased to 80mg IV BID. She remains on oral Bumex CXR 12/06 showing mild pulmonary edema and CMG - images reviewed Still SOB with inspiratory crackles but clinically does not appear to be fluid overloaded. Also on Jardiance Chest x-ray with interstitial edema.? D-dimer elevated.? CTA does 1 acute contrast IV will do V/Q scan if feasible CT chest to further evaluate without contrast For stridor will also get CT neck however could not be done as she could not lay flat this is improved with DuoNeb Switched to IV Bumex which will be continued Monitor creatinine Consulted cardiology, recomnends continue with IV Bumex and Acetazolamide for now. CKDIII Monitor renal function with diuresis Resume Bumex 2 mg b.i.d. creatinine trends up 1.4 for 3 days 12/16 (3) Gait abnormality: ?Code(s): R26.9 - Unspecified abnormalities of gait and mobility ?Status:?Acute ?Assessment and Plan: Plan for SNF/residential placement as she is not able to ambulate well enough to return home alone at this time. (4) Chronic respiratory failure requiring treatment with nocturnal BPAP by mask: ?Code(s): J96.10 - Chronic respiratory failure, unspecified whether with hypoxia or hypercapnia; Z99.89 - Dependence on other enabling machines and devices ?Status:?Chronic ?Assessment and Plan: Patient reports compliance with BiPAP at home. Continue at night and with naps ?continue nebulizer treatment.? Continue?doxycycline and ceftriaxone started since 12/09/23 completed antibiotics course ?still diuretics.? Continue Tessalon Perles for cough Switch to DuoNeb Add Solu Medrol with ongoing wheezing and Pulmicort Will switch Solu-Medrol to prednisone today. (5) Morbid obesity with BMI of 70 and over, adult: ?Code(s): E66.01 - Morbid (severe) obesity due to excess calories; Z68.45 - Body mass index [BMI] 70 or greater, adult ?Status:?Chronic ?Assessment and Plan: OBESITY Monitor physical inactivity. Stress monitoring and eating disorder. Referral to weight loss clinic. Weight bias and stigma screening BMI Class Diet and exercise counseling done (6) Anemia: ?Qualifiers: ?Anemia type:?iron deficiency ?Code(s): D64.9 - Anemia, unspecified ?Status:?Acute ?Assessment and Plan: ?ANEMIA Iron supplement Check for chronic renal failure ?monitor??H&H 8.09/06? currently stable continue to monitor ?continue Carafate Subjective Date/time seen: 12/17/23 10:58 Interval history: I saw exam patient today, patient still has dyspnea with minimal exertion, patient has
--- NOTE | 2023-12-17 14:19 | PM.PNCARD ---
Progress Note: A&P Assessment and Plan (1) Atrial fibrillation with RVR: Code(s): I48.91 - Unspecified atrial fibrillation Status: Acute Assessment and Plan: Now rate controlled. Continue Metoprolol, Diltiazem, Eliquis. (2) Acute exacerbation of CHF (congestive heart failure): Qualifiers: Heart failure type: unspecified Qualified Code(s): I50.9 - Heart failure, unspecified Code(s): I50.9 - Heart failure, unspecified Status: Acute Assessment and Plan: Has some pulmonary edema. Continue with IV Bumex and Acetazolamide for now. Please monitor strict I/Os. Her volume status is difficult to estimate given her morbid obesity and chronic lymphedema, however, she continues to have good urine output with IV diuresis at this time, so will continue for now. If renal function worsens or urine output drops off, then at that point would switch her back to PO diuretic. (3) Bilateral edema of lower extremity: Code(s): R60.0 - Localized edema Status: Acute Assessment and Plan: Has chronic lymphedema. We may not be able to improve her lower extremity much more with IV diuresis given chronic lymphedema. (4) Morbid obesity with BMI of 70 and over, adult: Code(s): E66.01 - Morbid (severe) obesity due to excess calories; Z68.45 - Body mass index [BMI] 70 or greater, adult Status: Chronic (5) Acute respiratory failure with hypoxia and hypercarbia: Code(s): J96.01 - Acute respiratory failure with hypoxia; J96.02 - Acute respiratory failure with hypercapnia Status: Acute Assessment and Plan: Continue diuresis as noted above. Audibly wheezing -- on Solumedrol per primary team. Subjective Date/time seen: 12/17/23 14:19 Interval history: Reason for visit: CHF HPI: This is a 48 year old female with morbid obesity, chronic lymphedema, atrial fibrillation who was initially admitted on 12/01 after a fall. Had some AFIB with RVR that improved with Diltiazem drip. Has been having shortness of breath since admission. CXR on 12/11 showed interstitial edema. She normally takes Bumex 2mg BID at home, has been started on IV Bumex 1mg BID, along with Acetazolamide. Has been wheezing as well. Has chronic lymphedema, however, patient states her swelling has gotten a little better. TTE 10/2023 showed LVEF 60-65%, grade 1 diastolic dysfunction, no valvular disease. Telemetry shows rate controlled AFIB. Date of service 12/16: Shortness of breath is about the same. Lower extremity swelling is the same. Review of Systems Review of Systems: All systems reviewed & are unremarkable except as noted in HPI and below (HPI) Exam Const: General: comfortable and no acute distress Other: Morbidly obese HENMT: Mouth: Yes moist mucous membranes Eyes: General: appearance normal, both eyes and all related structures Sclera: sclerae normal Resp: Effort & Inspection: normal respiratory effort Other: Audibly wheezing. On supplemental oxygen Cardio: Rhythm: abnormal rhythm irregularly irregular Other: + Lymphedema Skin: General skin exam: normal color Neuro: Speech: normal speech Psych: Mental Status: mental status grossly normal Affect: normal affect Objective Data Vital Signs Vital Signs: Vital Signs - 24 hr 12/16/23 16:04 12/16/23 20:05 12/16/23 20:27 Temperature 35.7 C L Pulse Rate 59 L 69 69 Respiratory Rate 18 Blood Pressure 129/55 L Pulse Oximetry 99 Oxygen Delivery Oxygen Flow Rate Fraction of Inspired Oxygen 12/16/23 20:00 12/16/23 20:52 12/16/23 20:55 Temperature Pulse Rate 69 69 Respiratory Rate 18 18 Blood Pressure Pulse Oximetry 99 98 Oxygen Delivery Nasal Cannula Nasal Cannula Oxygen Flow Rate 3 3 Fraction of Inspired Oxygen 12/16/23 21:00 12/17/23 02:12 12/17/23 02:19 Temperature Pulse Rate 70 64 68 Respiratory Rate 18 14 14 Blood Pressure Pulse Oximetry Oxygen Deliver
[2023-12-17] MEDS: SENNA/DOCUSATE SODIUM TABLET 1 TAB PO (21:24)
[2023-12-17] MEDS: QUEtiapine FUMARATE 100 MG TABLET 200 MG PO (21:24)
[2023-12-17] MEDS: ACETAMINOPHEN 325 MG TABLET 650 MG PO (21:39)
[2023-12-18] VITALS (18 sets, daily range): BP systolic 115–121; BP diastolic 47–60; PULSE 61–76; RESP 15–19; TEMP 36.1–36.4; O2SAT 94–100
[2023-12-18] MEDS: IPRATROPIUM 0.5 MG/ALBUTEROL SULFATE 2.5 MG AMPUL.NEB 3 ML INHALATION ×4 (01:50→19:58)
[2023-12-18] MEDS: LEVOTHYROXINE SODIUM 75 MCG TABLET PO (06:45)
[2023-12-18] MEDS: BUDESONIDE RESPULE NEB 0.5 MG/2 ML AMP INHALATION (07:53)
--- NOTE | 2023-12-18 08:40 | PM.IMPN ---
Progress Note: A&P Assessment and Plan (1) Atrial fibrillation with RVR: Code(s): I48.91 - Unspecified atrial fibrillation Status: Acute (2) Acute exacerbation of CHF (congestive heart failure): Qualifiers: Heart failure type: unspecified Qualified Code(s): I50.9 - Heart failure, unspecified Code(s): I50.9 - Heart failure, unspecified Status: Acute Plan (1) Atrial fibrillation with RVR: ?Code(s): I48.91 - Unspecified atrial fibrillation ?Status:?Acute ?Assessment and Plan: Patient presented with fall and found to have AFib with RVR treated with diltiazem drip. She has chronic AFib and was on metoprolol 12.5mg Q12hr and Eliquis 5mg Q12h at home Weaned to oral diltiazem. She was continued on metoprolol and Eliquis BP stable. HR well controlled TSH normal in October Continue the same. Repeat EKG with rate controlled (2) CHF (congestive heart failure), NYHA class I: ?Code(s): I50.9 - Heart failure, unspecified ?Status:?Chronic ?Assessment and Plan: CXR on admission showing mild interstitial edema. BNP 2109. Troponin negative x3. Bumex continued on admisison. Echo October 2023 showing LVH with normal size and fxn with EF 60-65% and Grade I diastolic dysfunction. Mild RV and LA enlargement. Patient with acute on chronic diastolic CHF. Lasix 40mg IV BID started 12/05 and increased to 80mg IV BID. She remains on oral Bumex CXR 12/06 showing mild pulmonary edema and CMG - images reviewed Still SOB with inspiratory crackles but clinically does not appear to be fluid overloaded. Also on Jardiance Chest x-ray with interstitial edema.? D-dimer elevated.? CTA does 1 acute contrast IV will do V/Q scan if feasible CT chest to further evaluate without contrast For stridor will also get CT neck however could not be done as she could not lay flat this is improved with DuoNeb Switched to IV Bumex which will be continued Monitor creatinine Consulted cardiology, recomnends continue with IV Bumex and Acetazolamide for now. CKDIII Monitor renal function with diuresis Resume Bumex 2 mg b.i.d. creatinine trends up 1.4 for 3 days 12/16 (3) Gait abnormality: ?Code(s): R26.9 - Unspecified abnormalities of gait and mobility ?Status:?Acute ?Assessment and Plan: Plan for SNF/alf placement as she is not able to ambulate well enough to return home alone at this time. (4) Chronic respiratory failure requiring treatment with nocturnal BPAP by mask: ?Code(s): J96.10 - Chronic respiratory failure, unspecified whether with hypoxia or hypercapnia; Z99.89 - Dependence on other enabling machines and devices ?Status:?Chronic ?Assessment and Plan: Patient reports compliance with BiPAP at home. Continue at night and with naps ?continue nebulizer treatment.? Continue?doxycycline and ceftriaxone started since 12/09/23 completed antibiotics course ?still diuretics.? Continue Tessalon Perles for cough Switch to DuoNeb Add Solu Medrol with ongoing wheezing and Pulmicort switched Solu-Medrol to prednisone consult oven drier tender for evaluation treatment, and appreciated oven drier tender consultation. pulmonology considers no evidence of longer needed wheezing, discontinue steroid. continue BiPAP follow recommendations (5) Morbid obesity with BMI of 70 and over, adult: ?Code(s): E66.01 - Morbid (severe) obesity due to excess calories; Z68.45 - Body mass index [BMI] 70 or greater, adult ?Status:?Chronic ?Assessment and Plan: OBESITY Monitor physical inactivity. Stress monitoring and eating disorder. Referral to weight loss clinic. Weight bias and stigma screening BMI Class Diet and exercise counseling done (6) Anemia: ?Qualifiers: ?Anemia type:?iron deficiency ?Code(s): D64.9 - Anemia, unspecified ?Status:?Acute ?Assessment and Plan: ?ANEMIA Iron supplement Check for chronic renal failure ?monitor??H&H 8.09/06? currently
[2023-12-18] MEDS: BENZONATATE 100 MG CAPSULE PO ×3 (08:47→16:42)
[2023-12-18] MEDS: APIXABAN 5 MG TABLET PO ×2 (08:47→21:50)
[2023-12-18] MEDS: predniSONE 20 MG TABLET 40 MG PO (08:47)
[2023-12-18] MEDS: lamoTRIgine 100 MG TABLET PO (08:48)
[2023-12-18] MEDS: dilTIAZem HCL CD 300 MG CAP.24HR PO (08:48)
[2023-12-18] MEDS: busPIRone HCL 5 MG TABLET 15 MG PO ×3 (08:48→16:42)
[2023-12-18] MEDS: guaiFENesin 12 HR 600 MG TABCR PO ×2 (08:48→21:50)
[2023-12-18] MEDS: EMPAGLIFLOZIN 10 MG TABLET PO (08:48)
[2023-12-18] MEDS: BUMETANIDE INJ 1 MG/4 ML VIAL IV PUSH ×2 (08:48→16:45)
[2023-12-18] MEDS: FERROUS SULFATE 325 MG TABLET DR BY MOUTH (08:48)
[2023-12-18] MEDS: EUCERIN CREAM 120 GM JAR 1 APPLIC TOPICAL (08:48)
[2023-12-18] MEDS: MULTIVITAMINS THERAPEUTIC TAB (*BKC) 1 TABLET PO (08:48)
[2023-12-18] MEDS: SPIRONOLACTONE 25 MG TABLET PO (08:49)
[2023-12-18] MEDS: SUCRALFATE 1 GM TABLET PO (08:49)
[2023-12-18] MEDS: QUEtiapine FUMARATE 100 MG TABLET PO ×2 (08:49→15:53)
[2023-12-18] MEDS: PANTOPRAZOLE 40 MG TABLET PO ×2 (08:49→16:42)
[2023-12-18] MEDS: PARoxetine 10 MG TABLET PO (08:49)
[2023-12-18] MEDS: POTASSIUM CHLORIDE 20 MEQ ER TABLET 40 MEQ PO (08:49)
[2023-12-18] MEDS: METOPROLOL TARTRATE 25 MG TABLET PO ×2 (08:49→21:50)
[2023-12-18] MEDS: TOLNAFTATE 1% POWDER 45 GM BTL 1 APPLIC TOPICAL ×4 (08:49→21:50)
[2023-12-18] MEDS: acetaZOLAMIDE SODIUM FOR INJ 500 MG VIAL 250 MG IV PUSH (08:53)
[2023-12-18 09:10] LABS: Anion Gap 2 mmol/L (4-12); Blood Urea Nitrogen 46 mg/dL (7-17); Carbon Dioxide 36 mmol/L (22-30); Chloride 101 mmol/L (98-107); Estimated CRCL calculation 64 ml/min; Estimated Glomerular Filt Rate 37; Glucose 117 mg/dL (65-110); Sodium 139 mmol/L (137-145)
--- NOTE | 2023-12-18 09:44 | PM.PNCARD ---
Progress Note: A&P Assessment and Plan (1) Atrial fibrillation with RVR: Code(s): I48.91 - Unspecified atrial fibrillation Status: Acute Assessment and Plan: Now rate controlled. Continue Metoprolol, Diltiazem, Eliquis. (2) Acute exacerbation of CHF (congestive heart failure): Qualifiers: Heart failure type: unspecified Qualified Code(s): I50.9 - Heart failure, unspecified Code(s): I50.9 - Heart failure, unspecified Status: Acute Assessment and Plan: Has some pulmonary edema. Continue with IV Bumex and Acetazolamide for now. Please monitor strict I/Os. Her volume status is difficult to estimate given her morbid obesity and chronic lymphedema, however, she continues to have good urine output with IV diuresis at this time, so will continue for now. If renal function worsens or urine output drops off, then at that point would switch her back to PO diuretic. Given her chronic lymphedema, she will have chronic lower extremity edema. Given her morbid obesity, she will likely have issues with ongoing shortness of breath. (3) Bilateral edema of lower extremity: Code(s): R60.0 - Localized edema Status: Acute Assessment and Plan: Has chronic lymphedema. We may not be able to improve her lower extremity much more with IV diuresis given chronic lymphedema. (4) Morbid obesity with BMI of 70 and over, adult: Code(s): E66.01 - Morbid (severe) obesity due to excess calories; Z68.45 - Body mass index [BMI] 70 or greater, adult Status: Chronic (5) Acute respiratory failure with hypoxia and hypercarbia: Code(s): J96.01 - Acute respiratory failure with hypoxia; J96.02 - Acute respiratory failure with hypercapnia Status: Acute Assessment and Plan: Continue diuresis as noted above. Audibly wheezing -- on Solumedrol per primary team. Given her morbid obesity, she will likely have issues with ongoing shortness of breath. Subjective Date/time seen: 12/18/23 09:44 Interval history: Reason for visit: CHF HPI: This is a 48 year old female with morbid obesity, chronic lymphedema, atrial fibrillation who was initially admitted on 12/01 after a fall. Had some AFIB with RVR that improved with Diltiazem drip. Has been having shortness of breath since admission. CXR on 12/11 showed interstitial edema. She normally takes Bumex 2mg BID at home, has been started on IV Bumex 1mg BID, along with Acetazolamide. Has been wheezing as well. Has chronic lymphedema, however, patient states her swelling has gotten a little better. TTE 10/2023 showed LVEF 60-65%, grade 1 diastolic dysfunction, no valvular disease. Telemetry shows rate controlled AFIB. Date of service 12/16: Shortness of breath is about the same. Lower extremity swelling is the same. Date of service 12/17: Feels the same, feels like she is losing her voice today. Review of Systems Review of Systems: All systems reviewed & are unremarkable except as noted in HPI and below (HPI) Exam Const: General: comfortable and no acute distress Other: Morbidly obese HENMT: Mouth: Yes moist mucous membranes Eyes: General: appearance normal, both eyes and all related structures Sclera: sclerae normal Resp: Effort & Inspection: normal respiratory effort Other: Audibly wheezing. On supplemental oxygen Cardio: Rhythm: abnormal rhythm irregularly irregular Other: + Lymphedema Skin: General skin exam: normal color Neuro: Speech: normal speech Extrem: General: edema Psych: Mental Status: mental status grossly normal Affect: normal affect Objective Data Vital Signs Vital Signs: Vital Signs - 24 hr 12/17/23 13:14 12/17/23 13:23 12/17/23 12:00 Temperature Pulse Rate 64 66 67 Respiratory Rate 20 20 Blood Pressure Pulse Oximetry Oxygen Delivery Oxygen Flow Rate 12/17/23 15:00 12/17/23 20:08 12/17/23 20:10 Temperature 36.5 C Pulse Rate 58 L 69 69 Respiratory
--- NOTE | 2023-12-18 10:22 | PCNWS ---
Weekly nutritional screen. Patient is tolerating current diet with adequate intake. No weight loss reported. No nutritional needs at this time.
--- NOTE | 2023-12-18 13:00 | PM.CNPUL ---
Assessment and Plan Assessment and plan (1) Acute exacerbation of CHF (congestive heart failure): Qualifiers: Heart failure type: unspecified Qualified Code(s): I50.9 - Heart failure, unspecified Code(s): I50.9 - Heart failure, unspecified Status: Acute (2) Bilateral edema of lower extremity: Code(s): R60.0 - Localized edema Status: Acute (3) Paroxysmal A-fib: Code(s): I48.0 - Paroxysmal atrial fibrillation Status: Acute (4) Type 2 diabetes mellitus with hyperglycemia: Code(s): E11.65 - Type 2 diabetes mellitus with hyperglycemia Status: Acute (5) HTN (hypertension): Code(s): I10 - Essential (primary) hypertension Status: Acute (6) (HFpEF) heart failure with preserved ejection fraction: Code(s): I50.30 - Unspecified diastolic (congestive) heart failure Status: Acute (7) History of tracheostomy: Code(s): Z98.890 - Other specified postprocedural states Status: Acute (8) Respiratory failure: Code(s): J96.90 - Respiratory failure, unspecified, unspecified whether with hypoxia or hypercapnia Status: Acute Assessment and Plan: This 48-year-old female patient, who has a history of obesity hypoventivation and relies on home ventilatory support via auto BiPAP, has been previously mechanically ventilated with a tracheostomy. Over the last few months, she has had multiple hospitalizations mainly due to respiratory failure, often related to the exacerbation of congestive heart failure and/or atrial fibrillation. Her current hospital admission was likely triggered by rapid atrial fibrillation and congestive heart failure, which have been managed with diuretics by the Cardiology Services. The patient exhibits chronic wheezing, a dry cough, and audible stridor over the neck, raising suspicions of tracheal stenosis potentially resulting from the mechanical ventilation and tracheostomy. Despite these symptoms, there's no evidence of hypercapnic respiratory failure, although she is currently on Diamox. The patient appears to be regularly using BiPAP support at home. Moving forward, our plan is to rule out tracheal narrowing as the cause of the stridor/wheezing. As there is no evidence of lung-related wheezing, we plan to discontinue the use of steroids and inhaled steroids. We will arrange for spirometry with a flow volume loop to rule out upper airway obstruction. The patient will continue to use BiPAP at night, and we will consider using [facility] prior to her discharge. (9) Morbid obesity with BMI of 70 and over, adult: Code(s): E66.01 - Morbid (severe) obesity due to excess calories; Z68.45 - Body mass index [BMI] 70 or greater, adult Status: Chronic (10) Obesity hypoventilation syndrome: Code(s): E66.2 - Morbid (severe) obesity with alveolar hypoventilation Status: Acute History of Present Illness History of Present Illness Consult date: 12/18/23 Chief complaint: A Fib RVR Narrative: A 48-year-old female patient, with a complex medical history, reported experiencing shortness of breath about two weeks ago. Her medical conditions include obesity hypoventilation syndrome, which necessitates chronic home ventilatory support, diabetes, hypertension, atrial fibrillation, GERD, IBS, depression, lymphedema, and CHF. Over the past four months, she's had multiple hospital admissions due to increasing breathlessness, primarily attributed to congestive heart failure. The patient is familiar to the Pulmonary Services, with her last hospitalization occurring in March 2023. During this stay, she experienced hypercapnic respiratory failure and was subsequently diagnosed with obesity hypoventilation syndrome. As a result, she was provided with home ventilatory support and nightly home oxygen. Her medical records indicate an order for a home ventilator AVAPS, but it's uncertain whether she has been using this or a BiPAP for her v
[2023-12-18] MEDS: QUEtiapine FUMARATE 100 MG TABLET 200 MG PO (21:50)
[2023-12-18] MEDS: SENNA/DOCUSATE SODIUM TABLET 1 TAB PO (21:50)
[2023-12-19] VITALS (17 sets, daily range): BP systolic 111–123; BP diastolic 47–63; PULSE 62–83; RESP 15–21; TEMP 36.4–36.6; O2SAT 94–100
[2023-12-19] MEDS: IPRATROPIUM 0.5 MG/ALBUTEROL SULFATE 2.5 MG AMPUL.NEB 3 ML INHALATION ×4 (02:56→20:28)
[2023-12-19] MEDS: LEVOTHYROXINE SODIUM 75 MCG TABLET PO (06:40)
[2023-12-19 07:09] LABS: Anion Gap 2 mmol/L (4-12); Blood Urea Nitrogen 43 mg/dL (7-17); Calcium 8.9 mg/dL (8.4-10.2); Carbon Dioxide 36 mmol/L (22-30); Chloride 103 mmol/L (98-107); Estimated CRCL calculation 64 ml/min; Estimated Glomerular Filt Rate 37; Glucose 133 mg/dL (65-110); Potassium 4.2 mmol/L (3.4-5.0); Sodium 141 mmol/L (137-145)
[2023-12-19] MEDS: acetaZOLAMIDE SODIUM FOR INJ 500 MG VIAL 250 MG IV PUSH (09:52)
[2023-12-19] MEDS: BUMETANIDE INJ 1 MG/4 ML VIAL IV PUSH ×2 (09:53→17:57)
[2023-12-19] MEDS: FERROUS SULFATE 325 MG TABLET DR BY MOUTH (09:56)
[2023-12-19] MEDS: PANTOPRAZOLE 40 MG TABLET PO ×2 (09:56→17:58)
[2023-12-19] MEDS: QUEtiapine FUMARATE 100 MG TABLET PO ×2 (09:56→15:16)
[2023-12-19] MEDS: SUCRALFATE 1 GM TABLET PO (09:56)
[2023-12-19] MEDS: EMPAGLIFLOZIN 10 MG TABLET PO (09:56)
[2023-12-19] MEDS: dilTIAZem HCL CD 300 MG CAP.24HR PO (09:56)
[2023-12-19] MEDS: guaiFENesin 12 HR 600 MG TABCR PO ×2 (09:56→20:04)
[2023-12-19] MEDS: PARoxetine 10 MG TABLET PO (09:57)
[2023-12-19] MEDS: lamoTRIgine 100 MG TABLET PO (09:57)
[2023-12-19] MEDS: APIXABAN 5 MG TABLET PO ×2 (09:57→20:05)
[2023-12-19] MEDS: SPIRONOLACTONE 25 MG TABLET PO (09:57)
[2023-12-19] MEDS: BENZONATATE 100 MG CAPSULE PO ×3 (09:57→17:58)
[2023-12-19] MEDS: POTASSIUM CHLORIDE 20 MEQ ER TABLET 40 MEQ PO (09:57)
[2023-12-19] MEDS: busPIRone HCL 5 MG TABLET 15 MG PO ×3 (09:57→17:58)
[2023-12-19] MEDS: MULTIVITAMINS THERAPEUTIC TAB (*BKC) 1 TABLET PO (09:58)
[2023-12-19] MEDS: METOPROLOL TARTRATE 25 MG TABLET PO ×2 (09:59→20:03)
[2023-12-19] MEDS: EUCERIN CREAM 120 GM JAR 1 APPLIC TOPICAL (10:03)
[2023-12-19] MEDS: TOLNAFTATE 1% POWDER 45 GM BTL 1 APPLIC TOPICAL ×4 (10:03→20:06)
--- NOTE | 2023-12-19 10:03 | PM.PNPUL ---
Progress Note: A&P Assessment and Plan (1) Acute exacerbation of CHF (congestive heart failure): Qualifiers: Heart failure type: unspecified Qualified Code(s): I50.9 - Heart failure, unspecified Code(s): I50.9 - Heart failure, unspecified Status: Acute (2) Atrial fibrillation with RVR: Code(s): I48.91 - Unspecified atrial fibrillation Status: Acute (3) History of tracheostomy: Code(s): Z98.890 - Other specified postprocedural states Status: Acute (4) Respiratory failure: Code(s): J96.90 - Respiratory failure, unspecified, unspecified whether with hypoxia or hypercapnia Status: Acute Assessment and Plan: The patient, a 48-year-old woman with a history of obesity hypoventilation, uses an auto BiPAP for home ventilatory support. She has previously undergone mechanical ventilation with a tracheostomy. In recent months, she has experienced multiple hospital admissions, mostly due to respiratory failure, often linked to exacerbations of congestive heart failure and/or atrial fibrillation. Her current admission likely stems from rapid atrial fibrillation and congestive heart failure, both of which have been managed with diuretics by the Cardiology Services. She presents with chronic wheezing, a dry cough, and audible neck stridor, leading to suspicions of tracheal stenosis possibly due to her past mechanical ventilation and tracheostomy. Despite these symptoms, there is no evidence of hypercapnic respiratory failure, though she is presently on Diamox. She appears to be consistently using her BiPAP support at home. Her respiratory status has remained stable over the past 24 hours. We are currently working on conducting a bedside flow volume loop to rule out the possibility of tracheal narrowing. Given the increase in her creatinine levels, her diuretic dosage likely needs adjustment. The ongoing use of Diamox in a normocapnia setting is another matter requiring attention. While Diamox can stimulate breathing and decrease pCO2 levels, it is not typically first-line therapy, especially in the absence of hypercapnia. We will continue to monitor her respiratory status. (5) Morbid obesity with BMI of 70 and over, adult: Code(s): E66.01 - Morbid (severe) obesity due to excess calories; Z68.45 - Body mass index [BMI] 70 or greater, adult Status: Chronic (6) Obesity hypoventilation syndrome: Code(s): E66.2 - Morbid (severe) obesity with alveolar hypoventilation Status: Acute Subjective Date/time seen: 12/19/23 10:03 Interval history: She reports no new respiratory symptoms. She slept well last night on her own BiPAP. Less dry cough this a.m.. Review of Systems Review of Systems: All systems reviewed & are unremarkable except as noted in HPI and below (HPI and below) Exam Narrative: GENERAL APPEARANCE: Well developed, well nourished, alert and cooperative, and appears to be in mild respiratory distress while on supplemental oxygen via nasal cannula SKIN: Inspection of the skin reveals no rashes, ulcerations or petechiae. HEENT: Sclerae anicteric and conjunctivae pink and moist. Extraocular movements were intact and pupils were equal, round, and reactive to light. The oral mucosa, hard and soft palate, tongue and posterior pharynx were normal. NECK: Supple. There was no thyroid enlargement, and no tenderness, or masses were felt. Stridor audible over neck. Healed tracheostomy scar. CHEST: Normal AP diameter and normal contour without any kyphoscoliosis. LUNGS: Crackles at bases posteriorly no wheezing. CARDIAC: There was a regular rate and rhythm without any murmurs, gallops, rubs. ABDOMEN: Soft and nontender with normal bowel sounds. EXTREMITIES: No cyanosis, or clubbing. Moderate lymphedema NEUROLOGIC: Alert and oriented x 3. Normal affect. Objective Data Vital Signs Vital Signs: Vital Signs - 24 hr 12/18/23 10:07 12/18/23 13:21 12/18/23 13
--- NOTE | 2023-12-19 10:15 | PM.IMPN ---
Progress Note: A&P Assessment and Plan (1) Atrial fibrillation with RVR: Code(s): I48.91 - Unspecified atrial fibrillation Status: Acute (2) Acute exacerbation of CHF (congestive heart failure): Qualifiers: Heart failure type: unspecified Qualified Code(s): I50.9 - Heart failure, unspecified Code(s): I50.9 - Heart failure, unspecified Status: Acute Plan (1) Atrial fibrillation with RVR: ?Code(s): I48.91 - Unspecified atrial fibrillation ?Status:?Acute ?Assessment and Plan: Patient presented with fall and found to have AFib with RVR treated with diltiazem drip. She has chronic AFib and was on metoprolol 12.5mg Q12hr and Eliquis 5mg Q12h at home Weaned to oral diltiazem. She was continued on metoprolol and Eliquis BP stable. HR well controlled TSH normal in October Continue the same. Repeat EKG with rate controlled (2) CHF (congestive heart failure), NYHA class I: ?Code(s): I50.9 - Heart failure, unspecified ?Status:?Chronic ?Assessment and Plan: CXR on admission showing mild interstitial edema. BNP 2109. Troponin negative x3. Bumex continued on admisison. Echo October 2023 showing LVH with normal size and fxn with EF 60-65% and Grade I diastolic dysfunction. Mild RV and LA enlargement. Patient with acute on chronic diastolic CHF. Lasix 40mg IV BID started 12/05 and increased to 80mg IV BID. She remains on oral Bumex CXR 12/06 showing mild pulmonary edema and CMG - images reviewed Still SOB with inspiratory crackles but clinically does not appear to be fluid overloaded. Also on Jardiance Chest x-ray with interstitial edema.? D-dimer elevated.? CTA does 1 acute contrast IV will do V/Q scan if feasible CT chest to further evaluate without contrast For stridor will also get CT neck however could not be done as she could not lay flat this is improved with DuoNeb Switched to IV Bumex which will be continued Monitor creatinine Consulted cardiology, recomnends continue with IV Bumex and Acetazolamide for now. CKDIII Monitor renal function with diuresis Resume Bumex 2 mg b.i.d. creatinine trends up slowly (3) Gait abnormality: ?Code(s): R26.9 - Unspecified abnormalities of gait and mobility ?Status:?Acute ?Assessment and Plan: Plan for SNF/penitentiary placement as she is not able to ambulate well enough to return home alone at this time. (4) Chronic respiratory failure requiring treatment with nocturnal BPAP by mask: ?Code(s): J96.10 - Chronic respiratory failure, unspecified whether with hypoxia or hypercapnia; Z99.89 - Dependence on other enabling machines and devices ?Status:?Chronic ?Assessment and Plan: Patient reports compliance with BiPAP at home. Continue at night and with naps ?continue nebulizer treatment.? Continue?doxycycline and ceftriaxone started since 12/09/23 completed antibiotics course ?still diuretics.? Continue Tessalon Perles for cough Switch to DuoNeb Add Solu Medrol with ongoing wheezing and Pulmicort switched Solu-Medrol to prednisone consult color developer for evaluation treatment, and appreciated color developer consultation. pulmonology considers no evidence of longer needed wheezing, discontinue steroid. continue BiPAP follow recommendations (5) Morbid obesity with BMI of 70 and over, adult: ?Code(s): E66.01 - Morbid (severe) obesity due to excess calories; Z68.45 - Body mass index [BMI] 70 or greater, adult ?Status:?Chronic ?Assessment and Plan: OBESITY Monitor physical inactivity. Stress monitoring and eating disorder. Referral to weight loss clinic. Weight bias and stigma screening BMI Class Diet and exercise counseling done (6) Anemia: ?Qualifiers: ?Anemia type:?iron deficiency ?Code(s): D64.9 - Anemia, unspecified ?Status:?Acute ?Assessment and Plan: ?ANEMIA Iron supplement Check for chronic renal failure ?monitor??H&H 8.09/06? currently stable co
[2023-12-19] MEDS: ACETAMINOPHEN 325 MG TABLET 650 MG PO (18:00)
[2023-12-19] MEDS: SENNA/DOCUSATE SODIUM TABLET 1 TAB PO (20:04)
[2023-12-19] MEDS: QUEtiapine FUMARATE 100 MG TABLET 200 MG PO (20:04)
[2023-12-20] VITALS (17 sets, daily range): BP systolic 107–121; BP diastolic 43–53; PULSE 60–75; RESP 15–20; TEMP 36.2–36.8; O2SAT 95–98
[2023-12-20] MEDS: IPRATROPIUM 0.5 MG/ALBUTEROL SULFATE 2.5 MG AMPUL.NEB 3 ML INHALATION ×4 (02:40→19:39)
[2023-12-20] MEDS: LEVOTHYROXINE SODIUM 75 MCG TABLET PO (05:47)
[2023-12-20 06:01] LABS: Anion Gap 1 mmol/L (4-12); Blood Urea Nitrogen 39 mg/dL (7-17); Calcium 8.2 mg/dL (8.4-10.2); Carbon Dioxide 33 mmol/L (22-30); Chloride 105 mmol/L (98-107); Estimated CRCL calculation 69 ml/min; Estimated Glomerular Filt Rate 40; Glucose 123 mg/dL (65-110); Potassium 3.7 mmol/L (3.4-5.0); Sodium 139 mmol/L (137-145)
--- NOTE | 2023-12-20 08:08 | PM.PNCARD ---
Progress Note: A&P Assessment and Plan (1) Atrial fibrillation by electrocardiogram: Code(s): I48.91 - Unspecified atrial fibrillation Status: Acute Plan 48-year-old lady with: Atrial fibrillation which was noted last March of 2023 when she was hospitalized with respiratory insufficiency, massive obesity and obstructive apnea. Heart rate is well controlled and with respect to that she is hemodynamically stable. She has been receiving intravenous Bumex for volume overload. The physical exam assessment of this is challenging given her size however there is very little if any pitting edema remaining in her lower extremities and this is markedly better than when I saw her in March of last year. I am going to transition her back to her baseline regimen of oral bumetanide. Most of her residual shortness of breath has to do with massive obesity in my opinion Ezio Umaña MD [facility] Subjective Date/time seen: Date of service: 12/20/23 08:08 Interval history: Reason for visit: CHF HPI: This is a 48 year old female with morbid obesity, chronic lymphedema, atrial fibrillation who was initially admitted on 12/01 after a fall. Had some AFIB with RVR that improved with Diltiazem drip. Has been having shortness of breath since admission. CXR on 12/11 showed interstitial edema. She normally takes Bumex 2mg BID at home, has been started on IV Bumex 1mg BID, along with Acetazolamide. Has been wheezing as well. Has chronic lymphedema, however, patient states her swelling has gotten a little better. TTE 10/2023 showed LVEF 60-65%, grade 1 diastolic dysfunction, no valvular disease. Telemetry shows rate controlled AFIB. Date of service 12/16: Shortness of breath is about the same. Lower extremity swelling is the same. Date of service 12/17: Feels the same, feels like she is losing her voice today. Date of service 12/20/2023: The patient is comfortable offers no new complaints still right hip reporting some shortness of breath but that has been chronic and unchanged. Exam Const: General: comfortable and no acute distress Other: Morbidly obese HENMT: Mouth: Yes moist mucous membranes Eyes: General: appearance normal, both eyes and all related structures Sclera: sclerae normal Resp: Effort & Inspection: normal respiratory effort Other: Audibly wheezing. On supplemental oxygen Cardio: Rhythm: abnormal rhythm irregularly irregular Other: + Lymphedema Skin: General skin exam: normal color Neuro: Speech: normal speech Extrem: Other: Lower extremities are very large but really no perceptible pitting edema at this time. This is markedly better than when I saw her in March of last year. Psych: Mental Status: mental status grossly normal Affect: normal affect Objective Data Vital Signs Vital Signs: Vital Signs - 24 hr 12/19/23 09:59 12/19/23 12:44 12/19/23 12:55 Temperature Pulse Rate 78 81 Respiratory Rate 20 Blood Pressure Pulse Oximetry Oxygen Delivery Nasal Cannula Oxygen Flow Rate 1 12/19/23 13:05 12/19/23 14:00 12/19/23 19:55 Temperature 36.6 C Pulse Rate 83 62 Respiratory Rate 20 21 H Blood Pressure 111/47 L Pulse Oximetry 96 96 Oxygen Delivery Nasal Cannula Oxygen Flow Rate 1 12/19/23 20:03 12/19/23 20:28 12/19/23 20:31 Temperature Pulse Rate 68 65 65 Respiratory Rate 20 Blood Pressure Pulse Oximetry 95 Oxygen Delivery Nasal Cannula Oxygen Flow Rate 1 12/19/23 20:48 12/19/23 22:00 12/19/23 23:45 Temperature 36.4 C Pulse Rate 69 68 65 Respiratory Rate 20 16 19 Blood Pressure 115/59 L Pulse Oximetry 99 98 Oxygen Delivery Autopap Oxygen Flow Rate 12/20/23 02:40 12/20/23 02:47 12/20/23 02:50 Temperature Pulse Rate 67 66 66 Respiratory Rate 15 15 15 Blood Pressure Pulse Oximetry 98 Oxygen Delivery Autopap Oxygen Flow Rate 12/20/23 05:58 12/20/23 07:43 12/20/23 07:43 Tem[place]a
[2023-12-20] MEDS: METOPROLOL TARTRATE 25 MG TABLET PO ×2 (08:56→20:37)
[2023-12-20] MEDS: BENZONATATE 100 MG CAPSULE PO ×3 (08:56→17:22)
[2023-12-20] MEDS: POTASSIUM CHLORIDE 20 MEQ ER TABLET 40 MEQ PO (08:56)
[2023-12-20] MEDS: BUMETANIDE 1 MG TABLET 2 MG PO ×2 (08:56→17:22)
[2023-12-20] MEDS: FERROUS SULFATE 325 MG TABLET DR BY MOUTH (08:56)
[2023-12-20] MEDS: QUEtiapine FUMARATE 100 MG TABLET PO ×2 (08:56→15:23)
[2023-12-20] MEDS: SPIRONOLACTONE 25 MG TABLET PO (08:56)
[2023-12-20] MEDS: SUCRALFATE 1 GM TABLET PO (08:57)
[2023-12-20] MEDS: busPIRone HCL 5 MG TABLET 15 MG PO ×3 (08:57→17:22)
[2023-12-20] MEDS: PANTOPRAZOLE 40 MG TABLET PO ×2 (08:57→17:23)
[2023-12-20] MEDS: APIXABAN 5 MG TABLET PO ×2 (08:57→20:36)
[2023-12-20] MEDS: lamoTRIgine 100 MG TABLET PO (08:57)
[2023-12-20] MEDS: PARoxetine 10 MG TABLET PO (08:57)
[2023-12-20] MEDS: EMPAGLIFLOZIN 10 MG TABLET PO (08:57)
[2023-12-20] MEDS: dilTIAZem HCL CD 300 MG CAP.24HR PO (08:57)
[2023-12-20] MEDS: guaiFENesin 12 HR 600 MG TABCR PO ×2 (08:57→20:36)
[2023-12-20] MEDS: MULTIVITAMINS THERAPEUTIC TAB (*BKC) 1 TABLET PO (08:57)
[2023-12-20] MEDS: acetaZOLAMIDE SODIUM FOR INJ 500 MG VIAL 250 MG IV PUSH (08:58)
[2023-12-20] MEDS: TOLNAFTATE 1% POWDER 45 GM BTL 1 APPLIC TOPICAL ×2 (08:58)
[2023-12-20] MEDS: EUCERIN CREAM 120 GM JAR 1 APPLIC TOPICAL (08:58)
--- NOTE | 2023-12-20 10:52 | PM.IMPN ---
Progress Note: A&P Assessment and Plan (1) Atrial fibrillation with RVR: Code(s): I48.91 - Unspecified atrial fibrillation Status: Acute (2) Acute exacerbation of CHF (congestive heart failure): Qualifiers: Heart failure type: unspecified Qualified Code(s): I50.9 - Heart failure, unspecified Code(s): I50.9 - Heart failure, unspecified Status: Acute (3) Chronic renal insufficiency, stage III (moderate): Code(s): N18.30 - Chronic kidney disease, stage 3 unspecified Status: Acute (4) Morbid obesity: Code(s): E66.01 - Morbid (severe) obesity due to excess calories Status: Acute (5) Respiratory failure: Code(s): J96.90 - Respiratory failure, unspecified, unspecified whether with hypoxia or hypercapnia Status: Acute Plan 48-year-old female residing at home by herself with past medical history morbid obesity obesity hypoventilation syndrome requiring noninvasive positive pressure ventilation at night, atrial fibrillation on Eliquis, [id number] diabetes mellitus, hypertension, GERD, IBS, depression, lymphedema, diastolic heart failure, multiple hospitalizations due to respiratory failure with transient tracheostomy in 05/2023. She presents with shortness of breath and weakness. Admitted on 12/01 for acute respiratory failure. Respiratory failure/obesity hypoventilation syndrome/stridor -patient has inspiratory stridor and expiratory wheeze. Spoke with respiratory we are unable to perform flow volume loop assessment. Subsequently, on 12/[address] Draper his recommendation is to have the patient follow-up with his clinic in the outpatient setting. She does not have hypercapnia. -will check repeat ABG 1 or 2 days after stopping Diamox. -D-dimer elevated at 1.07. On 03/26/23 is 1.02. Unable to perform CT chest or V/Q scan due to weight limitations. She is on Eliquis. -she is currently on 1 L nasal cannula. Continue DuoNeb scheduled AFib with RVR -currently rate controlled. Continue Eliquis -continue metoprolol and diltiazem Diastolic heart failure -on admission she was treated for acute decompensated heart failure aggressive diuresis. Cardiology was consulted. She has not been transition back to her home dosing of diuretic. -continue Bumex 2 mg p.o. b.i.d., Jardiance, spironolactone 25 mg p.o. q.day, potassium 40 mEq q.day -Diamox was started however she is not hypercapnic in the metabolic alkalosis is likely due to the diuretic use. Continue Diamox and check ABG on 12/21 in the morning. CKD stage 3 -she is at her baseline (1.3-1.5) Weakness -recommended to be discharged to SNF for acute rehab Anemia -stabl at her baseline (8's). FEN: Saline lock IV. GI prophylaxis: Not indicated DVT prophylaxis: On Eliquis Lines: Peripheral IV Code Status: Full code Dispo: Stable Subjective Date/time seen: 12/20/23 10:52 Interval history: No acute overnight events. Patient reports shortness of breath which has been persistent for many months. He denies any chest pain. Review of Systems Review of Systems: All systems reviewed & are unremarkable except as noted in HPI and below (Subjective) Exam Const: General: comfortable and no acute distress Other: Obese Eyes: Pupils: Equal, round and reactive pupils present Neck: Neck: supple Resp: Auscultation: no rhonchi Other: Mild inspiratory stridor and mild expiratory wheeze. No rales or crackles identified GI: GI Palp: Yes Soft to palpation and No Tenderness to palpation present (GI) Extrem: General: edema (1+ pitting edema of bilateral lower extremities) Objective Data Vital Signs Vital Signs: Vital Signs - 24 hr 12/19/23 12:44 12/19/23 12:55 12/19/23 13:05 Temperature Pulse Rate 81 83 Respiratory Rate 20 20 Blood Pressure Pulse Oximetry Oxygen Delivery Nasal Cannula Oxygen Flow Rate 1 12/19/23 14:00 12/19/23 19:55 12/19/23
--- NOTE | 2023-12-20 13:00 | PCRCNOTE ---
Home O2 evaluation not completed at this time. Pt is not being discharged anytime soon.
--- NOTE | 2023-12-20 15:13 | PM.PNPUL ---
Progress Note: A&P Assessment and Plan (1) Acute exacerbation of CHF (congestive heart failure): Qualifiers: Heart failure type: unspecified Qualified Code(s): I50.9 - Heart failure, unspecified Code(s): I50.9 - Heart failure, unspecified Status: Acute (2) Atrial fibrillation with RVR: Code(s): I48.91 - Unspecified atrial fibrillation Status: Acute (3) History of tracheostomy: Code(s): Z98.890 - Other specified postprocedural states Status: Acute (4) Respiratory failure: Code(s): J96.90 - Respiratory failure, unspecified, unspecified whether with hypoxia or hypercapnia Status: Acute Assessment and Plan: The 48-year-old female patient, who has a history of obesity hypoventilation, relies on an auto BiPAP for domestic ventilatory support. She has previously been subjected to mechanical ventilation through a tracheostomy. In recent times, she has had numerous hospital stays, primarily due to respiratory failure, often associated with exacerbations of congestive heart failure and/or atrial fibrillation. Her current hospitalization is likely due to a rapid onset of atrial fibrillation and congestive heart failure, both of which have been treated with diuretics by the Cardiology Services. She is exhibiting chronic wheezing, a dry cough, and noticeable neck stridor, raising suspicions of potential tracheal stenosis, possibly resulting from her past mechanical ventilation and tracheostomy. Despite these symptoms, there is no indication of hypercapnic respiratory failure, although she is currently taking Diamox. She seems to be regularly using her BiPAP support at home. Her respiratory condition has remained stable over the last 48 hours. She recently had a bedside flow volume loop conducted to eliminate the possibility of subglottic stenosis associated with tracheostomy mechanical ventilation. The study was technically inadequate due to equipment issues. The flow volume contour was not completely normal, with some evidence of a plateau in both the inspiratory and expiratory limb. We discussed the possibility of repeating the spirometry and flow volume loop once the patient returns home. The patient expressed that returning to the lab would be extremely difficult as she is non-ambulatory. If there is subglottic stenosis, it is likely of a mild degree as her hypercapnia is currently managed with BiPAP support at night and oxygen during the day. Chest CT cannot be done due to the patient's size. A consultation with an Ear, Nose, and Throat specialist may help to confirm or rule out the presence of subglottic stenosis. (5) Morbid obesity with BMI of 70 and over, adult: Code(s): E66.01 - Morbid (severe) obesity due to excess calories; Z68.45 - Body mass index [BMI] 70 or greater, adult Status: Chronic (6) Obesity hypoventilation syndrome: Code(s): E66.2 - Morbid (severe) obesity with alveolar hypoventilation Status: Acute Subjective Date/time seen: 12/20/23 15:13 Interval history: Patient has no new respiratory symptoms. Used on BiPAP last night. Underwent bedside spirometry the other day. Review of Systems Review of Systems: All systems reviewed & are unremarkable except as noted in HPI and below (HPI and below) Exam Narrative: GENERAL APPEARANCE: Well developed, well nourished, alert and cooperative, and appears to be in mild respiratory distress while on supplemental oxygen via nasal cannula SKIN: Inspection of the skin reveals no rashes, ulcerations or petechiae. HEENT: Sclerae anicteric and conjunctivae pink and moist. Extraocular movements were intact and pupils were equal, round, and reactive to light. The oral mucosa, hard and soft palate, tongue and posterior pharynx were normal. NECK: Supple. There was no thyroid enlargement, and no tenderness, or masses were felt. Stridor audible over neck. Healed tracheostomy scar. CHEST: Normal AP doug
[2023-12-20] MEDS: SENNA/DOCUSATE SODIUM TABLET 1 TAB PO (20:36)
[2023-12-20] MEDS: QUEtiapine FUMARATE 100 MG TABLET 200 MG PO (20:36)
[2023-12-21] VITALS (18 sets, daily range): BP systolic 110–119; BP diastolic 46–61; PULSE 59–70; RESP 16–20; TEMP 36.1–36.6; O2SAT 96–100
[2023-12-21] MEDS: IPRATROPIUM 0.5 MG/ALBUTEROL SULFATE 2.5 MG AMPUL.NEB 3 ML INHALATION ×4 (02:17→20:49)
[2023-12-21 04:59] LABS: Hematocrit 31.6 % (37.0-47.0); Hemoglobin 9.2 g/dL (12.0-15.0); Mean Corpuscular HGB Conc 29.1 g/dl (32-36); Mean Corpuscular Hemoglobin 26.5 pg (26-34); Mean Corpuscular Volume 91.1 fl (80-100); Mean Platelet Volume 10.4 fl (7.4-10.4); Platelet Count Result 201 k/mm3 (150-375); Red Blood Count 3.47 M/mm3 (4.2-5.4); Red Cell Distribution Width 17.2 % (11.5-14.5); White Blood Count 7.8 K/mm3 (4.5-10.0)
[2023-12-21 05:11] LABS: Anion Gap 1 mmol/L (4-12); Blood Urea Nitrogen 36 mg/dL (7-17); Calcium 8.2 mg/dL (8.4-10.2); Carbon Dioxide 33 mmol/L (22-30); Chloride 104 mmol/L (98-107); Estimated CRCL calculation 69 ml/min; Estimated Glomerular Filt Rate 40; Glucose 133 mg/dL (65-110); Magnesium 2.3 mg/dL (1.6-2.3); Potassium 3.9 mmol/L (3.4-5.0); Sodium 138 mmol/L (137-145)
[2023-12-21] MEDS: LEVOTHYROXINE SODIUM 75 MCG TABLET PO (05:45)
[2023-12-21] MEDS: MULTIVITAMINS THERAPEUTIC TAB (*BKC) 1 TABLET PO (09:36)
[2023-12-21] MEDS: POTASSIUM CHLORIDE 20 MEQ ER TABLET 40 MEQ PO (09:36)
[2023-12-21] MEDS: PANTOPRAZOLE 40 MG TABLET PO ×2 (09:36→16:07)
[2023-12-21] MEDS: FERROUS SULFATE 325 MG TABLET DR BY MOUTH (09:36)
[2023-12-21] MEDS: PARoxetine 10 MG TABLET PO (09:36)
[2023-12-21] MEDS: METOPROLOL TARTRATE 25 MG TABLET PO ×2 (09:36→21:59)
[2023-12-21] MEDS: QUEtiapine FUMARATE 100 MG TABLET PO ×2 (09:36→16:07)
[2023-12-21] MEDS: lamoTRIgine 100 MG TABLET PO (09:38)
[2023-12-21] MEDS: guaiFENesin 12 HR 600 MG TABCR PO ×2 (09:38→22:00)
[2023-12-21] MEDS: SPIRONOLACTONE 25 MG TABLET PO (09:39)
[2023-12-21] MEDS: dilTIAZem HCL CD 300 MG CAP.24HR PO (09:39)
[2023-12-21] MEDS: BENZONATATE 100 MG CAPSULE PO ×3 (09:39→16:07)
[2023-12-21] MEDS: EMPAGLIFLOZIN 10 MG TABLET PO (09:39)
[2023-12-21] MEDS: SUCRALFATE 1 GM TABLET PO (09:39)
[2023-12-21] MEDS: APIXABAN 5 MG TABLET PO ×2 (09:39→21:58)
[2023-12-21] MEDS: BUMETANIDE 1 MG TABLET 2 MG PO ×2 (09:39→16:07)
[2023-12-21] MEDS: busPIRone HCL 5 MG TABLET 15 MG PO ×3 (09:39→16:07)
[2023-12-21] MEDS: EUCERIN CREAM 120 GM JAR 1 APPLIC TOPICAL (09:39)
[2023-12-21] MEDS: TOLNAFTATE 1% POWDER 45 GM BTL 1 APPLIC TOPICAL ×2 (09:40)
--- NOTE | 2023-12-21 11:06 | PM.PNPUL ---
Progress Note: A&P Assessment and Plan (1) Acute exacerbation of CHF (congestive heart failure): Qualifiers: Heart failure type: unspecified Qualified Code(s): I50.9 - Heart failure, unspecified Code(s): I50.9 - Heart failure, unspecified Status: Acute (2) Atrial fibrillation with RVR: Code(s): I48.91 - Unspecified atrial fibrillation Status: Acute (3) History of tracheostomy: Code(s): Z98.890 - Other specified postprocedural states Status: Acute (4) Respiratory failure: Code(s): J96.90 - Respiratory failure, unspecified, unspecified whether with hypoxia or hypercapnia Status: Acute Assessment and Plan: The 48-year-old female patient, who has a history of obesity hypoventilation, relies on an auto BiPAP for domestic ventilatory support. She has previously been subjected to mechanical ventilation through a tracheostomy. In recent times, she has had numerous hospital stays, primarily due to respiratory failure, often associated with exacerbations of congestive heart failure and/or atrial fibrillation. Her current hospitalization is likely due to a rapid onset of atrial fibrillation and congestive heart failure, both of which have been treated with diuretics by the Cardiology Services. She is exhibiting chronic wheezing, a dry cough, and noticeable neck stridor, raising suspicions of potential tracheal stenosis, possibly resulting from her past mechanical ventilation and tracheostomy. Despite these symptoms, there is no indication of hypercapnic respiratory failure, although she is currently taking Diamox. She seems to be regularly using her BiPAP support at home. The patient's respiratory state has been stable for the past 48 hours. A recent bedside flow volume loop was performed to rule out the potential of subglottic stenosis related to tracheostomy mechanical ventilation. However, the study was technically insufficient due to issues with the equipment. The flow-volume contour was not entirely normal, showing a plateau in both the inspiratory and expiratory limb. We considered repeating the spirometry and flow-volume loop when the patient is back at home. Nevertheless, the patient expressed concern over the difficulty of returning to the lab due to her non-ambulatory condition. If subglottic stenosis is present, it is likely to be mild as her hypercapnia is currently controlled with BiPAP support at night. She does not experience hypercapnia during daytime and has no significant shortness of breath at rest. A chest CT scan of the neck to rule out subglottic stenosis is not feasible due to the patient's excessive weight and inability to fit into the machine. We will request our Ear Nose and Throat collection systems consultant to assess the patient for possible subglottic stenosis. After the ENT evaluation, the patient should be ready for discharge. (5) Morbid obesity with BMI of 70 and over, adult: Code(s): E66.01 - Morbid (severe) obesity due to excess calories; Z68.45 - Body mass index [BMI] 70 or greater, adult Status: Chronic (6) Obesity hypoventilation syndrome: Code(s): E66.2 - Morbid (severe) obesity with alveolar hypoventilation Status: Acute Subjective Date/time seen: 12/21/23 11:06 Interval history: Patient has no new respiratory symptoms. She slept well last night on auto BiPAP. Currently on low flow oxygen via nasal cannula. Wheezing and stridor mostly intermittent. Currently she has no wheezing or stridor. Review of Systems Review of Systems: All systems reviewed & are unremarkable except as noted in HPI and below (HPI and below) Exam Narrative: GENERAL APPEARANCE: Well developed, well nourished, alert and cooperative, and appears to be in mild respiratory distress while on supplemental oxygen via nasal cannula SKIN: Inspection of the skin reveals no rashes, ulcerations or petechiae. HEENT: Sclerae anicteric and conjunctivae pink and moist. Extrao
--- NOTE | 2023-12-21 12:08 | PM.IMPN ---
Progress Note: A&P Assessment and Plan (1) Atrial fibrillation with RVR: Code(s): I48.91 - Unspecified atrial fibrillation Status: Acute (2) Acute exacerbation of CHF (congestive heart failure): Qualifiers: Heart failure type: unspecified Qualified Code(s): I50.9 - Heart failure, unspecified Code(s): I50.9 - Heart failure, unspecified Status: Acute (3) Chronic renal insufficiency, stage III (moderate): Code(s): N18.30 - Chronic kidney disease, stage 3 unspecified Status: Acute (4) Morbid obesity: Code(s): E66.01 - Morbid (severe) obesity due to excess calories Status: Acute (5) Respiratory failure: Code(s): J96.90 - Respiratory failure, unspecified, unspecified whether with hypoxia or hypercapnia Status: Acute Plan 48-year-old female residing at home by herself with past medical history morbid obesity obesity hypoventilation syndrome requiring noninvasive positive pressure ventilation at night, atrial fibrillation on Eliquis, [id number] diabetes mellitus, hypertension, GERD, IBS, depression, lymphedema, diastolic heart failure, multiple hospitalizations due to respiratory failure with transient tracheostomy in 05/2023. She presents with shortness of breath and weakness. Admitted on 12/01 for acute respiratory failure. Respiratory failure/obesity hypoventilation syndrome/stridor -inspiratory stridor and expiratory wheeze now resolved. Spoke with respiratory we are unable to perform flow volume loop assessment. Subsequently, on 12/[address] Draper his recommendation is to have the patient follow-up with his clinic in the outpatient setting. She does not have hypercapnia. Pending ENT evaluation to evaluate for subglottic stenosis. We appreciate their assistance. -Diamox discontinued -D-dimer elevated at 1.07. On 03/26/23 is 1.02. Unable to perform CT chest or V/Q scan due to weight limitations. She is on Eliquis. -she is currently on 1 L nasal cannula. Continue DuoNeb scheduled AFib with RVR -currently rate controlled. Continue Eliquis -continue metoprolol and diltiazem Diastolic heart failure -on admission she was treated for acute decompensated heart failure with aggressive diuresis. Cardiology was consulted. She has now been transition back to her home dosing of diuretic. -continue Bumex 2 mg p.o. b.i.d., Jardiance, spironolactone 25 mg p.o. q.day, potassium 40 mEq q.day -Diamox was started however she is not hypercapnic in the metabolic alkalosis is likely due to the diuretic use. Diamox since discontinued CKD stage 3 -she is at her baseline (1.3-1.5) Weakness -patient lived at home previously. She has no transportation lives alone and is unable to take care of herself. Recommend discharge to SNF for rehab. Anemia -stabl at her baseline (8's). FEN: Saline lock IV. GI prophylaxis: Not indicated DVT prophylaxis: On Eliquis Lines: Peripheral IV Code Status: Full code Dispo: Stable Subjective Date/time seen: 12/21/23 12:08 Interval history: No acute overnight events. Patient reports no complaints. Review of Systems Review of Systems: All systems reviewed & are unremarkable except as noted in HPI and below (Subjective) Exam Const: General: comfortable and no acute distress Other: Obese. Neck: Neck: supple Resp: Effort & Inspection: normal respiratory effort Auscultation: diminished lung sounds Cardio: Rate: regular rate Rhythm: regular rhythm GI: GI Palp: Yes Soft to palpation and No Tenderness to palpation present (GI) Objective Data Vital Signs Vital Signs: Vital Signs - 24 hr 12/20/23 13:18 12/20/23 13:30 12/20/23 14:35 Temperature 97.1 F L Pulse Rate 64 68 75 Respiratory Rate 20 20 16 Blood Pressure 109/53 L Pulse Oximetry 97 Oxygen Delivery Oxygen Flow Rate 12/20/23 19:34 12/20/23 19:40 12/20/23 19:41 Temperature Pulse Rate 64 Respiratory Ra
[2023-12-21] MEDS: SENNA/DOCUSATE SODIUM TABLET 1 TAB PO (21:59)
[2023-12-21] MEDS: QUEtiapine FUMARATE 100 MG TABLET 200 MG PO (22:00)
[2023-12-22] VITALS (18 sets, daily range): BP systolic 105–122; BP diastolic 48–58; PULSE 57–75; RESP 14–20; TEMP 35.9–36.6; O2SAT 95–100
[2023-12-22] MEDS: IPRATROPIUM 0.5 MG/ALBUTEROL SULFATE 2.5 MG AMPUL.NEB 3 ML INHALATION ×4 (01:59→19:46)
[2023-12-22] MEDS: LEVOTHYROXINE SODIUM 75 MCG TABLET PO (05:55)
[2023-12-22] MEDS: PANTOPRAZOLE 40 MG TABLET PO ×2 (09:23→17:47)
[2023-12-22] MEDS: SPIRONOLACTONE 25 MG TABLET PO (09:23)
[2023-12-22] MEDS: MULTIVITAMINS THERAPEUTIC TAB (*BKC) 1 TABLET PO (09:23)
[2023-12-22] MEDS: busPIRone HCL 5 MG TABLET 15 MG PO ×3 (09:23→17:46)
[2023-12-22] MEDS: BUMETANIDE 1 MG TABLET 2 MG PO ×2 (09:23→17:46)
[2023-12-22] MEDS: APIXABAN 5 MG TABLET PO ×2 (09:23→20:44)
[2023-12-22] MEDS: QUEtiapine FUMARATE 100 MG TABLET PO ×2 (09:24→15:18)
[2023-12-22] MEDS: METOPROLOL TARTRATE 25 MG TABLET PO ×2 (09:24→20:44)
[2023-12-22] MEDS: lamoTRIgine 100 MG TABLET PO (09:24)
[2023-12-22] MEDS: EMPAGLIFLOZIN 10 MG TABLET PO (09:24)
[2023-12-22] MEDS: SUCRALFATE 1 GM TABLET PO (09:24)
[2023-12-22] MEDS: BENZONATATE 100 MG CAPSULE PO ×3 (09:24→17:47)
[2023-12-22] MEDS: dilTIAZem HCL CD 300 MG CAP.24HR PO (09:25)
[2023-12-22] MEDS: guaiFENesin 12 HR 600 MG TABCR PO ×2 (09:25→20:43)
[2023-12-22] MEDS: PARoxetine 10 MG TABLET PO (09:25)
[2023-12-22] MEDS: FERROUS SULFATE 325 MG TABLET DR BY MOUTH (09:25)
[2023-12-22] MEDS: POTASSIUM CHLORIDE 20 MEQ ER TABLET 40 MEQ PO (09:25)
[2023-12-22] MEDS: EUCERIN CREAM 120 GM JAR 1 APPLIC TOPICAL (09:26)
[2023-12-22] MEDS: TOLNAFTATE 1% POWDER 45 GM BTL 1 APPLIC TOPICAL ×4 (09:27→20:46)
--- NOTE | 2023-12-22 12:53 | PM.PNPUL ---
Progress Note: A&P Assessment and Plan (1) Acute exacerbation of CHF (congestive heart failure): Qualifiers: Heart failure type: unspecified Qualified Code(s): I50.9 - Heart failure, unspecified Code(s): I50.9 - Heart failure, unspecified Status: Acute (2) Atrial fibrillation with RVR: Code(s): I48.91 - Unspecified atrial fibrillation Status: Acute (3) History of tracheostomy: Code(s): Z98.890 - Other specified postprocedural states Status: Acute (4) Respiratory failure: Code(s): J96.90 - Respiratory failure, unspecified, unspecified whether with hypoxia or hypercapnia Status: Acute Assessment and Plan: The 48-year-old female patient, who has a history of obesity hypoventilation, relies on an auto BiPAP for domestic ventilatory support. She has previously been subjected to mechanical ventilation through a tracheostomy. In recent times, she has had numerous hospital stays, primarily due to respiratory failure, often associated with exacerbations of congestive heart failure and/or atrial fibrillation. Her current hospitalization is likely due to a rapid onset of atrial fibrillation and congestive heart failure, both of which have been treated with diuretics by the Cardiology Services. She is exhibiting chronic wheezing, a dry cough, and noticeable neck stridor, raising suspicions of potential tracheal stenosis, possibly resulting from her past mechanical ventilation and tracheostomy. Despite these symptoms, there is no indication of hypercapnic respiratory failure, although she is currently taking Diamox. She seems to be regularly using her BiPAP support at home. The patient's respiratory state has been stable for the past 48 hours. A recent bedside flow volume loop was performed to rule out the potential of subglottic stenosis related to tracheostomy mechanical ventilation. However, the study was technically insufficient due to issues with the equipment. The flow-volume contour was not entirely normal, showing a plateau in both the inspiratory and expiratory limb. We considered repeating the spirometry and flow-volume loop when the patient is back at home. Nevertheless, the patient expressed concern over the difficulty of returning to the lab due to her non-ambulatory condition. If subglottic stenosis is present, it is likely to be mild as her hypercapnia is currently controlled with BiPAP support at night. She does not experience hypercapnia during daytime and has no significant shortness of breath at rest, and and no evidence of abdominal paradox that would indicate a critical stenosis. A chest CT scan of the neck to rule out subglottic stenosis is not feasible due to the patient's excessive weight and inability to fit into the machine. At this stage, it is unlikely that an ear, nose, and throat consultation will provide significant insights, given the lack of a completely diagnostic flow-volume loop. Plan: From respiratory standpoint, the patient is in a stable condition for discharge to a custodial facility, where she will require ongoing BiPAP support, supplemental oxygen, nebulized short-acting bronchodilators 3 times daily on p.r.n. basis, and other medications for her congestive heart failure. It is necessary to reassess the patient in an outpatient clinic in roughly three weeks, potentially with a new flow volume loop. The custodial facility should be informed to return the patient to the pulmonary clinic in approximately 2-3 weeks from today. We will now sign off, but please do not hesitate to contact us with any questions. (5) Morbid obesity with BMI of 70 and over, adult: Code(s): E66.01 - Morbid (severe) obesity due to excess calories; Z68.45 - Body mass index [BMI] 70 or greater, adult Status: Chronic (6) Obesity hypoventilation syndrome: Code(s): E66.2 - Morbid (severe) obesity with alveolar hypoventilation Status: Acute Subject
--- NOTE | 2023-12-22 15:28 | PM.IMPN ---
Progress Note: A&P Assessment and Plan (1) Atrial fibrillation with RVR: Code(s): I48.91 - Unspecified atrial fibrillation Status: Acute (2) Acute exacerbation of CHF (congestive heart failure): Qualifiers: Heart failure type: unspecified Qualified Code(s): I50.9 - Heart failure, unspecified Code(s): I50.9 - Heart failure, unspecified Status: Acute (3) Chronic renal insufficiency, stage III (moderate): Code(s): N18.30 - Chronic kidney disease, stage 3 unspecified Status: Acute (4) Morbid obesity: Code(s): E66.01 - Morbid (severe) obesity due to excess calories Status: Acute (5) Respiratory failure: Code(s): J96.90 - Respiratory failure, unspecified, unspecified whether with hypoxia or hypercapnia Status: Acute Plan 48-year-old female residing at home by herself with past medical history morbid obesity obesity hypoventilation syndrome requiring noninvasive positive pressure ventilation at night, atrial fibrillation on Eliquis, [id number] diabetes mellitus, hypertension, GERD, IBS, depression, lymphedema, diastolic heart failure, multiple hospitalizations due to respiratory failure with transient tracheostomy in 05/2023. She presents with shortness of breath and weakness. Admitted on 12/01 for acute respiratory failure. Respiratory failure/obesity hypoventilation syndrome/stridor -inspiratory stridor and expiratory wheeze now resolved. Spoke with respiratory we are unable to perform flow volume loop assessment. Subsequently, on 12/[address] Draper his recommendation is to have the patient follow-up with his clinic in the outpatient setting. She does not have hypercapnia. We could not perform chest/neck CT due to the patient's excessive weight and inability to fit in scanner. Pulmonology recommendations appreciated. -Diamox discontinued -D-dimer elevated at 1.07. On 03/26/23 is 1.02. Unable to perform CT chest or V/Q scan due to weight limitations. She is on Eliquis. -she is currently on 1 L nasal cannula. Continue DuoNeb scheduled AFib with RVR -currently rate controlled. Continue Eliquis -continue metoprolol and diltiazem Diastolic heart failure -on admission she was treated for acute decompensated heart failure with aggressive diuresis. Cardiology was consulted. She has now been transitioned back to her home dosing of diuretic. -continue Bumex 2 mg p.o. b.i.d., Jardiance, spironolactone 25 mg p.o. q.day, potassium 40 mEq q.day -Diamox was started however she is not hypercapnic in the metabolic alkalosis is likely due to the diuretic use. Diamox since discontinued CKD stage 3 -she is at her baseline (1.3-1.5) Weakness -patient lived at home previously. She has no transportation lives alone and is unable to take care of herself. Recommend discharge to SNF for rehab. Anemia -stable at her baseline (8's). FEN: Saline lock IV. GI prophylaxis: Not indicated DVT prophylaxis: On Eliquis Lines: Peripheral IV Code Status: Full code Dispo: Stable. She is ready for discharge, care coordination to help arrange discharge, there are some insurance issues. Subjective Date/time seen: 12/22/23 15:28 Interval history: No acute overnight events. She reports today having some intermittent breathing difficulty. Review of Systems Review of Systems: All systems reviewed & are unremarkable except as noted in HPI and below (Subjective) Exam Const: General: comfortable and no acute distress Other: A&O x3. Obese. Eyes: Pupils: Equal, round and reactive pupils present Neck: Neck: supple Resp: Effort & Inspection: normal respiratory effort Cardio: Rate: regular rate Rhythm: regular rhythm GI: GI Palp: Yes Soft to palpation and No Tenderness to palpation present (GI) Extrem: Other: Chronic lymphedema Objective Data Vital Signs Vital Signs: Vital Signs - 24 hr 12/21/23 20:49 12/21/23 20:53 12/09
[2023-12-22] MEDS: SENNA/DOCUSATE SODIUM TABLET 1 TAB PO (20:43)
[2023-12-22] MEDS: QUEtiapine FUMARATE 100 MG TABLET 200 MG PO (20:44)
[2023-12-23] VITALS (18 sets, daily range): BP systolic 107–120; BP diastolic 48–59; PULSE 59–74; RESP 15–20; TEMP 35.7–36.7; O2SAT 96–100
[2023-12-23] MEDS: IPRATROPIUM 0.5 MG/ALBUTEROL SULFATE 2.5 MG AMPUL.NEB 3 ML INHALATION ×4 (03:10→20:10)
[2023-12-23] MEDS: LEVOTHYROXINE SODIUM 75 MCG TABLET PO (04:58)
[2023-12-23] MEDS: busPIRone HCL 5 MG TABLET 15 MG PO ×3 (08:58→17:27)
[2023-12-23] MEDS: MULTIVITAMINS THERAPEUTIC TAB (*BKC) 1 TABLET PO (08:59)
[2023-12-23] MEDS: FERROUS SULFATE 325 MG TABLET DR BY MOUTH (08:59)
[2023-12-23] MEDS: QUEtiapine FUMARATE 100 MG TABLET PO ×2 (09:00→15:13)
[2023-12-23] MEDS: BUMETANIDE 1 MG TABLET 2 MG PO ×2 (09:00→17:26)
[2023-12-23] MEDS: PANTOPRAZOLE 40 MG TABLET PO ×2 (09:00→17:27)
[2023-12-23] MEDS: PARoxetine 10 MG TABLET PO (09:00)
[2023-12-23] MEDS: SUCRALFATE 1 GM TABLET PO (09:00)
[2023-12-23] MEDS: dilTIAZem HCL CD 300 MG CAP.24HR PO (09:01)
[2023-12-23] MEDS: lamoTRIgine 100 MG TABLET PO (09:01)
[2023-12-23] MEDS: guaiFENesin 12 HR 600 MG TABCR PO ×2 (09:01→20:14)
[2023-12-23] MEDS: SPIRONOLACTONE 25 MG TABLET PO (09:01)
[2023-12-23] MEDS: METOPROLOL TARTRATE 25 MG TABLET PO ×2 (09:01→20:14)
[2023-12-23] MEDS: APIXABAN 5 MG TABLET PO ×2 (09:01→20:14)
[2023-12-23] MEDS: EMPAGLIFLOZIN 10 MG TABLET PO (09:02)
[2023-12-23] MEDS: BENZONATATE 100 MG CAPSULE PO ×3 (09:02→17:27)
[2023-12-23] MEDS: POTASSIUM CHLORIDE 20 MEQ ER TABLET 40 MEQ PO (09:02)
[2023-12-23] MEDS: TOLNAFTATE 1% POWDER 45 GM BTL 1 APPLIC TOPICAL ×4 (09:03→20:14)
[2023-12-23] MEDS: EUCERIN CREAM 120 GM JAR 1 APPLIC TOPICAL (09:03)
--- NOTE | 2023-12-23 16:54 | PM.IMPN ---
Progress Note: A&P Assessment and Plan (1) Atrial fibrillation with RVR: Code(s): I48.91 - Unspecified atrial fibrillation Status: Acute (2) Acute exacerbation of CHF (congestive heart failure): Qualifiers: Heart failure type: unspecified Qualified Code(s): I50.9 - Heart failure, unspecified Code(s): I50.9 - Heart failure, unspecified Status: Acute (3) Chronic renal insufficiency, stage III (moderate): Code(s): N18.30 - Chronic kidney disease, stage 3 unspecified Status: Acute (4) Morbid obesity: Code(s): E66.01 - Morbid (severe) obesity due to excess calories Status: Acute (5) Respiratory failure: Code(s): J96.90 - Respiratory failure, unspecified, unspecified whether with hypoxia or hypercapnia Status: Acute Plan 48-year-old female residing at home by herself with past medical history morbid obesity obesity hypoventilation syndrome requiring noninvasive positive pressure ventilation at night, atrial fibrillation on Eliquis, [id number] diabetes mellitus, hypertension, GERD, IBS, depression, lymphedema, diastolic heart failure, multiple hospitalizations due to respiratory failure with transient tracheostomy in 05/2023. She presents with shortness of breath and weakness. Admitted on 12/01 for acute respiratory failure. On 12/22 add lozenges as she feels her mouth is dry. He has been eating ice chips as well. Check BMP CBC and magnesium in the morning her breathing appears to be stable. Respiratory failure/obesity hypoventilation syndrome/stridor -inspiratory stridor and expiratory wheeze now resolved. Spoke with respiratory we are unable to perform flow volume loop assessment. Subsequently, on 12/[address] Draper his recommendation is to have the patient follow-up with his clinic in the outpatient setting. She does not have hypercapnia. We could not perform chest/neck CT due to the patient's excessive weight and inability to fit in scanner. Pulmonology recommendations appreciated. -Diamox discontinued -D-dimer elevated at 1.07. On 03/26/23 is 1.02. Unable to perform CT chest or V/Q scan due to weight limitations. She is on Eliquis. -she is currently on 1 L nasal cannula. Continue DuoNeb scheduled AFib with RVR -currently rate controlled. Continue Eliquis -continue metoprolol and diltiazem Diastolic heart failure -on admission she was treated for acute decompensated heart failure with aggressive diuresis. Cardiology was consulted. She has now been transitioned back to her home dosing of diuretic. -continue Bumex 2 mg p.o. b.i.d., Jardiance, spironolactone 25 mg p.o. q.day, potassium 40 mEq q.day -Diamox was started however she is not hypercapnic in the metabolic alkalosis is likely due to the diuretic use. Diamox since discontinued CKD stage 3 -she is at her baseline (1.3-1.5) Weakness -patient lived at home previously. She has no transportation lives alone and is unable to take care of herself. Recommend discharge to SNF for rehab. Anemia -stable at her baseline (8's). FEN: Saline lock IV. GI prophylaxis: Not indicated DVT prophylaxis: On Eliquis Lines: Peripheral IV Code Status: Full code Dispo: Stable. She is ready for discharge, care coordination to help arrange discharge, there are some insurance issues. Subjective Date/time seen: 12/23/23 16:54 Interval history: No acute overnight events. She denies complaint she thinks her breathing is stable. She denies any chest pain. She feels her mouth is dry and she has been eating a lot of ice chips. Review of Systems Review of Systems: All systems reviewed & are unremarkable except as noted in HPI and below (Subjective) Exam Const: General: comfortable and no acute distress Other: A&O x3. Obese. Eyes: Pupils: Equal, round and reactive pupils present Neck: Neck: supple Resp: Effort & Inspection: normal respiratory effort Cardio: Rate: reg
[2023-12-23] MEDS: BENZOCAINE/MENTHOL (*BKC) 18 EA LOZENGE 1 LOZENGE PO (20:13)
[2023-12-23] MEDS: QUEtiapine FUMARATE 100 MG TABLET 200 MG PO (20:14)
[2023-12-23] MEDS: SENNA/DOCUSATE SODIUM TABLET 1 TAB PO (20:14)
[2023-12-24] VITALS (17 sets, daily range): BP systolic 100–118; BP diastolic 47–74; PULSE 52–69; RESP 14–20; TEMP 35.9–36.3; O2SAT 95–100
[2023-12-24] MEDS: IPRATROPIUM 0.5 MG/ALBUTEROL SULFATE 2.5 MG AMPUL.NEB 3 ML INHALATION ×4 (02:07→20:41)
[2023-12-24 05:04] LABS: Hematocrit 33.3 % (37.0-47.0); Hemoglobin 9.7 g/dL (12.0-15.0); Mean Corpuscular HGB Conc 29.1 g/dl (32-36); Mean Corpuscular Hemoglobin 26.2 pg (26-34); Mean Platelet Volume 10.8 fl (7.4-10.4); Platelet Count Result 204 k/mm3 (150-375); Red Cell Distribution Width 17.4 % (11.5-14.5); White Blood Count 7.4 K/mm3 (4.5-10.0)
[2023-12-24 05:14] LABS: Anion Gap 3 mmol/L (4-12); Blood Urea Nitrogen 32 mg/dL (7-17); Calcium 8.4 mg/dL (8.4-10.2); Carbon Dioxide 34 mmol/L (22-30); Chloride 102 mmol/L (98-107); Estimated CRCL calculation 77 ml/min; Estimated Glomerular Filt Rate 48; Glucose 134 mg/dL (65-110); Magnesium 2.3 mg/dL (1.6-2.3); Potassium 3.7 mmol/L (3.4-5.0); Sodium 139 mmol/L (137-145)
[2023-12-24] MEDS: LEVOTHYROXINE SODIUM 75 MCG TABLET PO (05:52)
[2023-12-24] MEDS: dilTIAZem HCL CD 300 MG CAP.24HR PO (08:57)
[2023-12-24] MEDS: BENZONATATE 100 MG CAPSULE PO ×3 (08:57→17:21)
[2023-12-24] MEDS: METOPROLOL TARTRATE 25 MG TABLET PO ×2 (08:57→19:49)
[2023-12-24] MEDS: FERROUS SULFATE 325 MG TABLET DR BY MOUTH (08:57)
[2023-12-24] MEDS: PARoxetine 10 MG TABLET PO (08:57)
[2023-12-24] MEDS: PANTOPRAZOLE 40 MG TABLET PO ×2 (08:58→17:21)
[2023-12-24] MEDS: SUCRALFATE 1 GM TABLET PO (08:58)
[2023-12-24] MEDS: busPIRone HCL 5 MG TABLET 15 MG PO ×3 (08:58→17:21)
[2023-12-24] MEDS: BUMETANIDE 1 MG TABLET 2 MG PO ×2 (08:58→17:21)
[2023-12-24] MEDS: lamoTRIgine 100 MG TABLET PO (08:59)
[2023-12-24] MEDS: APIXABAN 5 MG TABLET PO ×2 (08:59→19:49)
[2023-12-24] MEDS: POTASSIUM CHLORIDE 20 MEQ ER TABLET 40 MEQ PO (08:59)
[2023-12-24] MEDS: MULTIVITAMINS THERAPEUTIC TAB (*BKC) 1 TABLET PO (08:59)
[2023-12-24] MEDS: guaiFENesin 12 HR 600 MG TABCR PO ×2 (08:59→19:49)
[2023-12-24] MEDS: QUEtiapine FUMARATE 100 MG TABLET PO ×2 (09:00→14:48)
[2023-12-24] MEDS: EMPAGLIFLOZIN 10 MG TABLET PO (09:00)
[2023-12-24] MEDS: SPIRONOLACTONE 25 MG TABLET PO (09:00)
[2023-12-24] MEDS: EUCERIN CREAM 120 GM JAR 1 APPLIC TOPICAL (09:01)
[2023-12-24] MEDS: TOLNAFTATE 1% POWDER 45 GM BTL 1 APPLIC TOPICAL ×4 (09:01→23:23)
--- NOTE | 2023-12-24 10:42 | PCNWS ---
Weekly nutritional screen. Patient is tolerating current diet with adequate intake. No weight loss reported. No nutritional needs at this time.
--- NOTE | 2023-12-24 16:25 | PM.IMPN ---
Progress Note: A&P Assessment and Plan (1) Atrial fibrillation with RVR: Code(s): I48.91 - Unspecified atrial fibrillation Status: Acute (2) Acute exacerbation of CHF (congestive heart failure): Qualifiers: Heart failure type: unspecified Qualified Code(s): I50.9 - Heart failure, unspecified Code(s): I50.9 - Heart failure, unspecified Status: Acute (3) Chronic renal insufficiency, stage III (moderate): Code(s): N18.30 - Chronic kidney disease, stage 3 unspecified Status: Acute (4) Morbid obesity: Code(s): E66.01 - Morbid (severe) obesity due to excess calories Status: Acute (5) Respiratory failure: Code(s): J96.90 - Respiratory failure, unspecified, unspecified whether with hypoxia or hypercapnia Status: Acute Plan 48-year-old female residing at home by herself with past medical history morbid obesity obesity hypoventilation syndrome requiring noninvasive positive pressure ventilation at night, atrial fibrillation on Eliquis, xwu-wolvymo-toaldacen diabetes mellitus, hypertension, GERD, IBS, depression, lymphedema, diastolic heart failure, multiple hospitalizations due to respiratory failure with transient tracheostomy in 05/2023. She presents with shortness of breath and weakness. Admitted on 12/01 for acute respiratory failure. 12/23 for many days now she has been able for discharge. Asked by care coordination to call her insurance for a peer to peer evaluation. Approximately 1600 on 12/[address] Paresh Dunlap at [phone] and authorization for long term facility was declined. Will continue to work with care coordination. Respiratory failure/obesity hypoventilation syndrome/stridor -inspiratory stridor and expiratory wheeze now resolved. Spoke with respiratory we are unable to perform flow volume loop assessment. Subsequently, on 12/[address] Draper his recommendation is to have the patient follow-up with his clinic in the outpatient setting. She does not have hypercapnia. We could not perform chest/neck CT due to the patient's excessive weight and inability to fit in scanner. Pulmonology recommendations appreciated. -Diamox discontinued -D-dimer elevated at 1.07. On 03/26/23 is 1.02. Unable to perform CT chest or V/Q scan due to weight limitations. She is on Eliquis. -she is currently on 1 L nasal cannula. Continue DuoNeb scheduled AFib with RVR -currently rate controlled. Continue Eliquis -continue metoprolol and diltiazem Diastolic heart failure -on admission she was treated for acute decompensated heart failure with aggressive diuresis. Cardiology was consulted. She has now been transitioned back to her home dosing of diuretic. -continue Bumex 2 mg p.o. b.i.d., Jardiance, spironolactone 25 mg p.o. q.day, potassium 40 mEq q.day -Diamox was started however she is not hypercapnic in the metabolic alkalosis is likely due to the diuretic use. Diamox since discontinued CKD stage 3 -she is at her baseline (1.3-1.5) Weakness -patient lived at home previously. She has no transportation lives alone and is unable to take care of herself. Recommend discharge to SNF. Anemia -stable at her baseline (8's). FEN: Saline lock IV. GI prophylaxis: Not indicated DVT prophylaxis: On Eliquis Lines: Peripheral IV Code Status: Full code Dispo: Stable. She is ready for discharge, care coordination to help arrange discharge, there are some insurance issues. Subjective Date/time seen: 12/24/23 16:25 Interval history: No acute overnight events. The patient is in good spirits today and believe she is breathing a bit better than yesterday. She is still very adamant she wants to go to a long term facility as she does not feel she can take care of herself at home. Review of Systems Review of Systems: All systems reviewed & are unremarkable except as noted in HPI and below (Subjective) Exam Const: General: comforta
[2023-12-24] MEDS: SENNA/DOCUSATE SODIUM TABLET 1 TAB PO (19:49)
[2023-12-24] MEDS: QUEtiapine FUMARATE 100 MG TABLET 200 MG PO (19:52)
[2023-12-25] VITALS (15 sets, daily range): BP systolic 95–115; BP diastolic 40–50; PULSE 51–87; RESP 16–20; TEMP 36.6–36.8; O2SAT 90–99
[2023-12-25] MEDS: IPRATROPIUM 0.5 MG/ALBUTEROL SULFATE 2.5 MG AMPUL.NEB 3 ML INHALATION ×4 (02:35→20:11)
[2023-12-25] MEDS: LEVOTHYROXINE SODIUM 75 MCG TABLET PO (05:12)
[2023-12-25] MEDS: POTASSIUM CHLORIDE 20 MEQ ER TABLET 40 MEQ PO (10:04)
[2023-12-25] MEDS: APIXABAN 5 MG TABLET PO ×2 (10:05→19:49)
[2023-12-25] MEDS: SPIRONOLACTONE 25 MG TABLET PO (10:05)
[2023-12-25] MEDS: BENZONATATE 100 MG CAPSULE PO ×3 (10:05→18:07)
[2023-12-25] MEDS: BUMETANIDE 1 MG TABLET 2 MG PO ×2 (10:05→18:07)
[2023-12-25] MEDS: guaiFENesin 12 HR 600 MG TABCR PO ×2 (10:05→19:49)
[2023-12-25] MEDS: QUEtiapine FUMARATE 100 MG TABLET PO ×2 (10:05→18:06)
[2023-12-25] MEDS: busPIRone HCL 5 MG TABLET 15 MG PO ×3 (10:06→18:06)
[2023-12-25] MEDS: PARoxetine 10 MG TABLET PO (10:06)
[2023-12-25] MEDS: EMPAGLIFLOZIN 10 MG TABLET PO (10:06)
[2023-12-25] MEDS: MULTIVITAMINS THERAPEUTIC TAB (*BKC) 1 TABLET PO (10:06)
[2023-12-25] MEDS: dilTIAZem HCL CD 300 MG CAP.24HR PO (10:07)
[2023-12-25] MEDS: lamoTRIgine 100 MG TABLET PO (10:07)
[2023-12-25] MEDS: EUCERIN CREAM 120 GM JAR 1 APPLIC TOPICAL (10:07)
[2023-12-25] MEDS: SUCRALFATE 1 GM TABLET PO (10:07)
[2023-12-25] MEDS: PANTOPRAZOLE 40 MG TABLET PO ×2 (10:07→18:07)
[2023-12-25] MEDS: FERROUS SULFATE 325 MG TABLET DR BY MOUTH (10:07)
[2023-12-25] MEDS: TOLNAFTATE 1% POWDER 45 GM BTL 1 APPLIC TOPICAL ×2 (10:08)
--- NOTE | 2023-12-25 13:55 | PM.DS ---
DS: Admitting Diagnosis Discharge Date December 25, 2023 Admitting Diagnosis Shortness of breath and weakness DS: Discharge Diagnosis Discharge Diagnosis (1) Respiratory failure: Code(s): J96.90 - Respiratory failure, unspecified, unspecified whether with hypoxia or hypercapnia Status: Acute DS: Summary Hospital Course Hospital Course: 48-year-old female with past medical history morbid obesity, obesity hypoventilation syndrome relies on auto BiPAP as domestic ventilatory support, atrial fibrillation on Eliquis, zsa-bmqwgst-pxnqtozws diabetes mellitus, hypertension, GERD, IBS, depression, lymphedema, diastolic heart failure, multiple hospitalizations due to respiratory failure with transient use of tracheostomy 05/2023. She presents from home with shortness of breath and weakness and admitted on 12/01 for acute respiratory failure. The respiratory failure was thought to be due to obesity hypoventilation syndrome, morbid obesity, AFib with RVR, decompensated heart failure.. She did have some stridor and wheezing which resolved. Thus, pulmonology did evaluate the patient and unfortunately a flow volume loop was unable to be conducted properly due to lack of equipment. The patient did not have hypercapnia on ABG. Pulmonology has recommended the patient follow-up office so a flow be conducted. She has been furnished with the pulmonology clinic she agrees to do so. Coordination was heavily involved helping get the patient home and set up home health and possible transportation to the pulmonology office. Her oxygen supplementation for the acute hypoxic respiratory failure was resolved in on 12/25/23 the patient is stable to return home with home health. Due to her obesity chronic debility opted to have the patient discharged to SNF. However after peer to peer evaluation this was denied. For volume overload was treated with aggressive Bumex which was eventually transition back to her home dose. She also had atrial fibrillation with RVR and diltiazem was added. Her RVR resolved. Patient was full code during the admission. Time Spent with Patient Time attestation: Total time spent providing and/or coordinating discharge services: Exam Const: General: comfortable and no acute distress Other: A&O x3. Obese. Eyes: Pupils: Equal, round and reactive pupils present Neck: Neck: supple Resp: Effort & Inspection: normal respiratory effort Cardio: Rate: regular rate Rhythm: regular rhythm GI: GI Palp: Yes Soft to palpation and No Tenderness to palpation present (GI) Extrem: Other: Chronic lymphedema Discharge Plan Discharge Attending physician on discharge: Heidy Porter Consulting providers: Ezio Umaña; Matheus Draper Discharging Clinician: Heidy Porter Patient Disposition: Home Health Service Activity: may shower Diet: as tolerated Discharge Instructions: Care Coordination: Patient to have [facility] resume services at discharge. Their phone number is [phone] / [phone] if you have any questions; they will contact you to schedule their first visit. RN Please fax discharge instructions to [phone]. Patient Instructions: Apixaban (By mouth), Heart Failure (DC), A-fib (Atrial Fibrillation) (DC) Stand Alone Forms: General Discharge Information Follow-up/Referrals: Laurel Lr MD [Primary Care Provider] - 1 Week Matheus Draper MD [Physician] - 2 Weeks Discharge Medications: New spironolactone 25 mg Tablet 25 mg PO DAILY Qty: 30 0RF diltiazem HCl 300 mg Capsule,Extended Release 24hr 300 mg PO QAM Qty: 30 0RF potassium chloride [K-Tab] 20 mEq Tablet Extended Release 40 meq PO DAILY Qty: 60 0RF Continued lamotrigine 100 mg tablet 100 mg PO DAILY Qty: 30 0RF paroxetine HCl 10 mg Tablet 10 mg PO QAM bumetanide 2 mg Tablet 2 mg PO BID sennosides-docusate sodium [Senna Plus] 8.6-50 mg Tablet 1
[2023-12-25] MEDS: BENZOCAINE/MENTHOL (*BKC) 18 EA LOZENGE 1 LOZENGE PO (15:35)
[2023-12-25] MEDS: QUEtiapine FUMARATE 100 MG TABLET 200 MG PO (19:48)
[2023-12-25] MEDS: SENNA/DOCUSATE SODIUM TABLET 1 TAB PO (19:49)
[2023-12-25] MEDS: METOPROLOL TARTRATE 25 MG TABLET PO (19:49)
== END 2023-12-25 20:30 | disposition home health service (06) | DRG 189 ==
LOC: ANHED 20:47 → ANHIMU 22:17 → ANH3MED 12-06 17:33 → ANH2MED 12-09 17:55
PROVIDERS: Hospitalist; Internal Medicine; Nurse Practitioner; Preventive Medicine Aerospace Medicine; Admitting Provider Internal Medicine; Emergency Provider Emergency Medicine; PCP Family Medicine; Visit Provider General Practice
DX: J96.21 Acute and chronic respiratory failure with hypoxia (principal); I50.33 Acute on chronic diastolic (congestive) heart failure; I13.0 Hypertensive heart and chronic kidney disease with heart failure and stage 1 through stage 4 chronic kidney disease, or unspecified chronic kidney disease; E66.2 Morbid (severe) obesity with alveolar hypoventilation; Z68.45 Body mass index [BMI] 70 or greater, adult; N18.30 Chronic kidney disease, stage 3 unspecified; I48.0 Paroxysmal atrial fibrillation; D63.1 Anemia in chronic kidney disease; E11.22 Type 2 diabetes mellitus with diabetic chronic kidney disease; E03.9 Hypothyroidism, unspecified; E55.9 Vitamin D deficiency, unspecified; E53.8 Deficiency of other specified B group vitamins; F32.A Depression, unspecified; F41.9 Anxiety disorder, unspecified; G25.81 Restless legs syndrome; K21.9 Gastro-esophageal reflux disease without esophagitis; K58.9 Irritable bowel syndrome, unspecified; R26.9 Unspecified abnormalities of gait and mobility; Z99.89 Dependence on other enabling machines and devices; Z79.01 Long term (current) use of 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; Z79.84 Long term (current) use of oral hypoglycemic drugs; Z90.49 Acquired absence of other specified parts of digestive tract
CPT/HCPCS: 36415; 36600; 71045; 80048; 80053; 82607; 82728; 82746; 82805; 83036; 83540; 83550; 83690; 83735; 83880; 84484; 85025; 85027; 85380; 85610; 85730; 87040; 87449; 87637; 87641; 87899; 93005; 94640; 94660; 96365; 96366; 97110; 97116; 97161; 97165; 97166; 97530; 97535; 99199; 99285; A9270; G0378; J0696; J1120; J1939; J1940; J2405; J2919; J7512

== ENCOUNTER 2024-01-26 13:04 | Outpatient (NON) | payer MEDICARE, SELFPAY ==
[2024-01-26 13:43] LABS: Anion Gap 6 mmol/L (4-12); Blood Urea Nitrogen 27 mg/dL (7-18); Calcium 8.6 mg/dL (8.5-10.1); Carbon Dioxide 31 mmol/L (21-32); Chloride 105 mmol/L (98-108); Estimated Glomerular Filt Rate 40; Glucose 141 mg/dL (70-99); NT Pro B Type Natriuretic Pept 724 pg/mL (0-125); Osmolality Calculated 301 mOsm/kg (285-295); Potassium 4.2 mmol/L (3.5-5.1); Sodium 142 mmol/L (136-145)
== END 2024-01-26 13:05 | disposition home or self-care (01) ==
LOC: CHSLAB 13:06
PROVIDERS: Visit Provider Family Medicine
DX: I50.23 Acute on chronic systolic (congestive) heart failure (principal); E11.51 Type 2 diabetes mellitus with diabetic peripheral angiopathy without gangrene
CPT/HCPCS: 36415; 80048; 83880

== ENCOUNTER 2024-11-23 12:26 | Inpatient (IN) | payer MEDICARE, SELFPAY ==
[2024-11-23] VITALS (12 sets, daily range): BP systolic 118–147; BP diastolic 42–100; PULSE 68–86; RESP 16–20; TEMP 36.4–36.6; O2SAT 95–100; BMI 73.5
--- NOTE | ~2024-11-23 | XR_ITS ---
XR chest 1V portable Ordering provider: Clementine Morales MD History: 49 years Female with . check for signs of pulm edema . Comparison: January 08, 2024 FINDINGS: MEDIASTINUM: The cardiac silhouette is moderately enlarged. Congestive kwadwo. LUNGS: No infiltrates, effusions or pneumothorax. Bilateral interstitial thickening. OTHER: No free air under the diaphragm. IMPRESSION: Cardiomegaly with cardiac decompensation and pulmonary edema. Superimposed pneumonitis cannot be excl uded. Clinical correlation advised. Reviewed, dictated and finalized at location A. IMPRESSION: Cardiomegaly with cardiac decompensation and pulmonary edema. Superimposed pneu monitis cannot be excluded. Clinical correlation advised.
--- OUTSIDE RECORDS SUMMARY | 2024-11-23 13:23 | XMS_ITS ---
Author Organization [facility], [place] Care Team Providers Care Spreader Operator Name Role Phone Darci Downey Unavailable Unavailable Tamara Rios Unavailable Unavailable Allergies and adverse reactions Code CodeSystem Substance Reaction Severity StartDate Concern Status Sulfamethoxazole /Trim ethoprim Unknown 03/26/[address] Sulfa Antibiotics Unknown 03/26/2023 active Care Team Name Role Address Phone Organization Dates Darci Downey PCP [address], [place], [facility], [facility] (Office): [facility], [place] 04/03/2023 - 04/08/2023 Tamara Rios Attending Physician [address], [place], [facility], [facility] (Office): [facility], [place] 04/03/2023 - 04/08/2023 Problems Problem # Description Date of onset Resolved Date Code CodeSystem Concern Status 1 ACUTE AND CHRONIC RESPIRATORY FAILURE WITH HYPERCAPNIA 03/26/[address] active 2 ACUTE KIDNEY FAILURE, UNSPECIFIED 03/26/[address] active 3 ANEMIA IN CHRONIC KIDNEY DISEASE 03/26/[address] active 4 ANXIETY DISORDER, UNSPECIFIED 03/26/[address] active 5 BODY MASS INDEX [BMI] 70 OR GREATER, ADULT 03/26/[address] active 6 CARDIOMEGALY 03/26/[address] active 7 CELLULITIS OF ABDOMINAL WALL 03/26/[address] active 8 CHRONIC COMBINED SYSTOLIC (CONGESTIVE) AND DIASTOLIC (CONGESTIVE) HEART FAILURE 03/26/[address] active 9 CHRONIC PULMONARY EDEMA 03/26/[address] active 10 DEPRESSION, UNSPECIFIED 03/26/[address] active 11 DIABETES MELLITUS DUE TO UNDERLYING CONDITION WITH HYPOGLYCEMIA WITHOUT COMA 03/26/[address] active 12 ERYTHEMA INTERTRIGO 03/26/[address] active 13 ESSENTIAL (PRIMARY) HYPERTENSION 03/26/[address] active 14 HYPERKALEMIA 03/26/[address] active 15 HYPOTHYROIDISM, UNSPECIFIED 03/26/[address] active 16 IRRITABLE BOWEL SYNDROME WITH DIARRHEA 03/26/[address] active 17 LYMPHEDEMA, NOT ELSEWHERE CLASSIFIED 03/26/[address] active 18 MAGNESIUM DEFICIENCY 03/26/[address] active 19 METHICILLIN RESISTANT STAPHYLOCOCCUS AUREUS INFECTION THE CAUSE OF DISEASES CLASSIFIED ELSEWHERE 03/26/[address] active 20 MORBID (SEVERE) OBESITY WITH ALVEOLAR HYPOVENTILATION 03/26/[address] active 21 MUSCLE WEAKNESS (GENERALIZED) 03/26/[address] active 22 OBSTRUCTIVE SLEEP APNEA (ADULT) (PEDIATRIC) 03/26/[address] active 23 OTHER ABNORMALITIES OF GAIT AND MOBILITY 03/26/[address] active 24 OTHER IDIOPATHIC PERIPHERAL AUTONOMIC NEUROPATHY 03/26/[address] active 25 POLYP OF COLON 03/26/[address] active 26 PULMONARY HYPERTENSION, UNSPECIFIED 03/26/[address] active 27 REPEATED FALLS 03/26/[address] active 28 SHORTNESS OF BREATH 03/26/[address] active 29 THIAMINE DEFICIENCY, UNSPECIFIED 03/26/[address] active 30 UNSPECIFIED OPEN WOUND OF ABDOMINAL WALL, LEFT LOWER QUADRANT WITHOUT PENETRATION INTO PERITONEAL CAVITY, SUBSEQUENT ENCOUNTER 03/26/[address] active 31 VITAMIN D DEFICIENCY, UNSPECIFIED 03/26/[address] active Reason for Referral No Reasons for Referral Entered Social History Social History Observation Description Start Date End Date Code Code System Current Smoking Status Tobacco smoking consumption unknown 933207835 SNOMED CT Sex Assigned At Female 1975 74133-2 [facility] Vital Signs Code Code System Vitals Name Values and Units Timing Information 9279-1 [facility] Respiratory Rate Value=16.0 Units=/m in 04/08/2023 8462-4 [facility] Blood Pressure-Diastolic Value=64 Un its=mmHg 04/08/2023 8480-6 [facility] Blood Pressure-Systolic Wjckd=109 Un its=mmHg 04/08/2023 8310-5 [facility] Body Temperature Value=98.5 Units= F 04/08/2023 8867-4 [facility] Heart rate Value=78.0 Units=/min 2339-0 [facility] Blood Sugar Fdyje=684.0 Units=mg/dL 04/08/2023 12155-9 [facility] O2 % BldC Oximetry Value=91.0 Units= % 04/08/2023 74542-2 [facility] Pain Level Value=0.0 04/08/2023 8302-2 [facility] Height Value=63.0 Units=Inches 04/03/2023 40273-1 [facility] Weight Iovob=622.0 Units=Lbs
--- OUTSIDE RECORDS SUMMARY | 2024-11-23 13:23 | XMS_ITS | Clinical Summary ---
Author Organization [facility] Address [address] [place] [address] Phone Care Team Providers Care Electric Meter Repairer Name Role Phone Unavailable Primary Care Provider Unavailabl e Allergies Active Allergy Reactions Criticality Noted Date Comments Sulfa (Sulfonamide Antibiotics) Rash Low 11/2022 Medications lamoTRIgine (LaMICtal) 100 mg tablet Take 100 mg by mouth daily. Active levothyroxine 75 mcg tablet Take 75 mcg by mouth daily in the morning. Active gabapentin (NEURONTIN) 300 mg capsule Take 300 mg by mouth 3 times daily. Active nystatin (NYSTOP) 100,000 unit/gram powder Apply to affected area 3 times daily. Active polyethylene glycol (MIRALAX) 17 gram Powder in Packet Take 17 Grams by mouth daily. Active ipratropium-albu teroL (DUONEB) 0.5 mg-3 mg(2.5 mg base)/3 mL Solution for Nebulization Take 3 mL by inhalation every 6 hours. Active aluminum - magnesium - simethicone (MYLANTA) 200-200-20 mg/5 mL Suspension Take 30 mL by mouth every 6 hours as needed for stomach upset and anti-gas 100 mL 3 Active loperamide (IMODIUM) 2 mg capsule Take 1 Capsule (2 mg) by mouth 2 times daily as needed for Diarrhea/Loose Stools. 20 Capsule 04/28/2023 6:10 PM CDT 3 Active meclizine (ANTIVERT) 25 mg tablet Take 1 Tablet (25 mg) by mouth 3 times daily as needed for Dizziness. 20 Tablet 04/28/2023 6:10 PM CDT 3 Active metoprolol tartrate (LOPRESSOR) 25 mg tablet 0.5 Tablets (12.5 mg) by NG Tube route 2 times daily. 3 Active apixaban (ELIQUIS) 5 mg tablet 1 Tablet (5 mg) by NG Tube route 2 times daily. 3 Active busPIRone (BUSPAR) 10 mg tablet 1 Tablet (10 mg) by NG Tube route 2 times daily. 3 Active ferrous sulfate (FEOSOL) 300 mg (60 mg iron)/5 mL solution 5 mL (300 mg) by NG Tube route daily. 3 Active guaiFENesin (ROBITUSSIN) 100 mg/5 mL solution Take 10 mL (200 mg) by mouth every 4 hours as needed for Cough. 3 Active HYDROmorphone (DILAUDID) 2 mg tabletIndication s:Tracheostomy status (CMS/HCC) 0.5 Tablets (1 mg) by NG Tube route every 6 hours as needed for Pain, Break-Through. Max Daily Amount: 4 mg 20 Tablet 3 Active hydrOXYzine HCL (ATARAX) 25 mg tablet 1 Tablet (25 mg) by NG Tube route every 6 hours as needed for Anxiety. 3 Active insulin lispro (HumaLOG) 100 unit/mL pen syringe Inject 0-7 Units by subcutaneous injection every 4 hours. 15 mL 3 Active lansoprazole (PREVACID SoluTab) 30 mg Tablet,Rapid Dissolve, DR 1 Tablet (30 mg) by NG Tube route daily before breakfast. 1 3 Active LORazepam (ATIVAN) 0.5 mg tabletIndication s:Anxiety state Take 1 Tablet (0.5 mg) by mouth 2 times daily as needed for Other (See Comment) (Prior to trach trials). 3 Active LORazepam (ATIVAN) 1 mg tabletIndication s:Anxiety state Take 1 Tablet (1 mg) by mouth 2 times daily. 3 Active melatonin 5 mg Tablet, Rapid Dissolve Take 1 Tablet (5 mg) by mouth nightly as needed for Insomnia. 3 Active multivitamin,kathi cium,minerals,ir on,folic acid (THERA-M,THERA-M PLUS) 9 mg iron-400 mcg Tablet Take 1 Tablet by mouth daily. 3 Active simethicone 80 mg Tablet, Chewable 2 Tablets (160 mg) by NG Tube route every 6 hours as needed for Gas. 3 Active furosemide (Lasix) 40 mg tablet Take 1 Tablet (40 mg) by mouth daily. 3 Active Active Problems Problem Noted Date Diagnosed Date Tracheostomy status 06/13/2023 FABIAN (generalized anxiety disorder) 06/12/2023 Type 2 diabetes mellitus wit h neurologic complication, without long-term current use of insulin 06/12/2023 Anxiety state 06/12/2023 Chronic diastolic heart failure 06/09/2023 Atrial fibrillation 05/07/2023 ACP (advance care planning) 05/02/2023 Palliative care encounter 05/02/2023 ZULEIKA (obstructive sleep apnea) 04/29/2023 Obesity hypoventilation syndrome 04/29/2023 Occult blood in stools 04/20/2023 Iron deficiency anemia due to chronic blood loss 04/15/2023 Acute on chronic anemia 04/14/2023 Chronic heart failure with p reserved ejection fraction (HFpEF) 04/14/2023 Intertrigo 04/14/2023 Depression 04/14/2023 Hypothyroidism 04/14/2023 Pulmonary hypertension 04/14/2023 Hypertension 04/14/2023 Morbid obesity with BMI of 70 and over, adult Chronic respiratory failure with hypoxia and hyp ercapnia 04/14/2023 Resolved Problems Problem Noted Date Diagnosed Date Resolved Date Altered mental status 05/02/20232022 Acute respiratory failure 05/01/2023 Acute metabolic encephalopathy 04/29/2023 06/12/2023 Pancytopenia 04/29/2023 06/16/2023 Acute on chronic respiratory failure with hypoxia and hypercapnia 04/18/2023 06/16/2023 Social History Tobacco Use Types Packs/Day Years Used Date Smoking Tobacco: Never Passive Smoke Exposure: Never Smokeless Tobacco: Never Tobacco Cessation:Counseling Given: No Alcohol Use Standard Drinks/Week Comments Never 0 (1 standard drink = 0.6 oz pur e alcohol) Feeling Safe Answer Date Recorded Are you in a relationship wi th someone who hurts you emotionally and/or physically? Unable to obtain 04/28/2023 Food Insecurity Answer Date Recorded Social/Environmental Concerns No concerns Transportation Needs Answer Date Record ed Social/Environmental Concerns No concerns Housing Stability Answer Date Recorded Social/Environmental Concerns No concerns Utility Needs Answer Date Recorded Social/Environmental Concerns No concerns Comments No Sex and Gender Information Value Date Recorded Sex Assigned at Not on file Legal Sex Female 10:13 AM CDT Gender Identity Not on file Sexual Orientation Not on file Last Filed Vital Signs Vital Sign Reading Time Taken Comments Blood Pressure 122/59 06/16/2023 11:23 AM RECOVERY AUDITOR Pulse 93 06/16/2023 11:23 AM RECOVERY AUDITOR Temperature 36.8 C (98.2 F) 06/16/2023 11:23 AM RECOVERY AUDITOR Respiratory Rate 29 06/16/2023 4:44 PM RECOVERY AUDITOR Oxygen Saturation 98% 06/16/2023 4:44 PM RECOVERY AUDITOR Inhaled Oxygen Concentration - - Weight 227.3 kg (501 lb) 06/16/2023 4:57 AM RECOVERY AUDITOR Height 157.5 cm (5' 2 ) 04/29/2023 12:56 AM CDT Body Mass Index 91.63 04/29/2023 12:56 AM CDT Plan of Treatment Health Maintenance Due Date Last Done Comments PNEUMOCOCCAL VACCINE 0-49 YE ARS (1 of 2 - PCV) 1979 DIABETES ANNUAL FOOT EXAM 1991 DIABETES ANNUAL RETINAL EXAM 1991 DIABETES MICROALBUMIN ANNUAL SCREEN 1991 LDL CHOLESTEROL ANNUAL 1991 DTAP/TDAP/TD VACCINES (1 - Tdap) 02/20/1992 HEPATITIS B VACCINES (1 of 3 - 19+ 3-dose series) 02/20/1992 HPV/Cotest (21-29) 1994 CERVICAL CANCER SCREENING 2003 HPV/Cotest (30-65) 2003 PAP SMEAR 2003 BREAST CANCER SCREENING 2013 COLORECTAL SCREENING 2018 Colorectal Cancer Screening 2018 FIT-DNA Q 3 years 2018 FIT/FOBT Q 1 year 2018 Flex Sig/CT Colonography Q 5 years 2018 ZOSTER VACCINE (1 of 2) 2023 DIABETES HBA1C Q 6 MONTHS 10/13/2023 04/14/2023, 11/2022 INFLUENZA VACCINE (#1) 2024 Procedures Procedure Name Priority Date/Time Associated Diagnosis Comments HEMOGLOBIN A1C Routine 04/14/2023 10:51 PM CDT from Last 3 Months or Most Recently Relevant to Health Maintenance Results * HEMOGLOBIN A1C (04/14/2023 10:51 PM CDT) HEMOGLOBIN A1C 5.1 <5.7 % 04/14/2023 11:24 PM CDT [facility] EST. AVG GLUCOSE, A1C 100 mg/dL 04/14/2023 11:24 PM CDT [facility] Blood Venipuncture / Unknown 04/14/2023 10:51 PM CDT 04/14/2023 11:06 PM CDT Narrative [facility] - 04/14/2023 11:24 PM CDT HGB A1C INTERPRETATION NORMAL: <5.7% PRE-DIABETES: 5.7 - 6.4% DIABETES: 6.5% OR GREATER us Anjel Dorsey DO CHEMISTRY ORDERABLES Final Res ult [facility] [employer] [facility] CLIA# [id number] [address] [place] [address] from Last 3 Months or Most Recently Relevant to Health Maintenance Insurance RX [employer] Member Subscriber Plan / Payer (Ef fective 2023-Present) Name:Noemi Nicole Relation to Subscriber:Self Name:Noemi Nicole Subscriber ID:Not on file Payer ID:Not on file Group ID:[id number] Type:RX Medicare Part D Address: [address] [employer] (INTERNAL) [facility] [employer] Advance Directives For more information, please contact: [phone] * Full Code (Latest Code Status on File) Date Activated Date Inactivated Comments 04/29/2023 1:22 AM 06/16/2023 7:57 PM * Full Code Date Activated Date Inactivated Comments 04/14/2023 7:48 PM 04/28/2023 8:53 PM
--- OUTSIDE RECORDS SUMMARY | 2024-11-23 13:23 | XMS_ITS | Clinical Summary ---
Author Organization [facility] Address [address] [place] [address] Care Team Providers Care Mop Maker Name Role Phone Laurel Lr Primary Care Provider [phone] Allergies Active Allergy Reactions Criticality Noted Date Comments Sulfa Antibiotics Rash Medium 03/21/2023 Medications dextrose (GLUTOSE) 40 % gelIndications:Hyp oglycemia Take 15 g by mouth as needed for blood sugar < 70 mg/dl Indications: Disorder with Low Blood Sugar. 09/23/19 24 Active insulin lispro 100 UNIT/ML injectionIndicatio ns:Hyperglycemia Inject 0-12 Units under the skin daily Indications: High Blood Sugar. 09/24/19 24 Active acetaminophen (TYLENOL) 325 MG tablet 2 tablets (650 mg total) by PO/Per Tube route every 6 (six) hours as needed for mild pain or Temp > or equal to 101F (38.3C). 09/23/19 24 Active albuterol (ACCUNEB) (5 MG/ML) 0.5% nebulizer solution Take 0.5 mL (2.5 mg total) by nebulization Every 6 hours as needed. for wheezing or shortness of breath. 09/23/19 24 Active ALPRAZolam (XANAX) 0.25 MG tablet 1 tablet (0.25 mg total) by PO/Per Tube route 3 (three) times a day as needed for anxiety (Anxiety). 09/23/19 24 Active apixaban (Eliquis) 5 MG tabletIndications: Atrial Fibrillation 1 tablet (5 mg total) by PO/Per Tube route in the morning and 1 tablet (5 mg total) before bedtime. Indications: Atrial Fibrillation. 09/23/19 24 Active bumetanide (BUMEX) 1 MG tablet 1 tablet (1 mg total) by PO/Per Tube route in the morning. 09/23/19 24 Active bumetanide (BUMEX) 2 MG tablet 1 tablet (2 mg total) by PO/Per Tube route in the morning. 09/24/19 24 Active busPIRone (BUSPAR) 15 MG tablet 1 tablet (15 mg total) by PO/Per Tube route 3 (three) times a day. 09/23/19 Active ferrous sulfate 325 (65 FE) MG tablet Take 1 tablet by mouth daily with breakfast. 09/24/19 24 Active guaiFENesin-dextro methorphan (ROBITUSSIN DM) 100-10 MG/5ML syrup 5 mL by PO/Per Tube route every 6 (six) hours as needed for cough. 09/23/19 24 Active lamoTRIgine (LaMICtal) 100 MG tablet 1 tablet (100 mg total) by PO/Per Tube route in the morning. 09/24/19 24 Active levothyroxine (SYNTHROID) 75 MCG tablet 1 tablet (75 mcg total) by PO/Per Tube route Daily at 6am. 09/24/19 24 Active Magnesium Citrate 1.745 GM/30ML solution 296 mL (17.2173 g total) by PO/Per Tube route daily as needed (sevewre constipation). 09/23/19 24 Active melatonin tablet 2 tablets (6 mg total) by PO/Per Tube route nightly as needed for sleep. 09/23/19 24 Active metoclopramide (REGLAN) 10 MG tablet 1 tablet (10 mg total) by PO/Per Tube route in the morning and 1 tablet (10 mg total) at noon and 1 tablet (10 mg total) in the evening. Take before meals. 09/23/19 24 Active metoprolol tartrate (LOPRESSOR) 25 MG tablet 0.5 tablets (12.5 mg total) by PO/Per Tube route in the morning and 0.5 tablets (12.5 mg total) before bedtime. 09/23/19 24 Active multivitamin (THERA) tablet 1 tablet by PO/Per Tube route in the morning. 09/24/19 24 Active ondansetron ODT (ZOFRAN-ODT) 4 MG disintegrating tablet Take 1 tablet (4 mg total) by mouth every 6 (six) hours as needed for nausea or vomiting. 09/23/19 24 Active pantoprazole (PROTONIX) 40 MG EC/DR tablet Take 1 tablet (40 mg total) by mouth in the morning and 1 tablet (40 mg total) before bedtime. 09/23/19 24 Active PARoxetine (PAXIL) 20 MG tablet Take 1 tablet (20 mg total) by mouth in the morning. 09/24/19 24 Active polyethylene glycol (MIRALAX) 17 g packet Take 17 g by mouth every third day. 09/26/19 24 Active potassium chloride (KLOR-CON) 20 MEQ packet 40 mEq by PO/Per Tube route in the morning and 40 mEq before bedtime. 09/23/19 24 Active QUEtiapine (SEROquel) 100 MG tabletIndications: Anxiety 1 tablet (100 mg total) by PO/Per Tube route in the morning and 1 tablet (100 mg total) before bedtime. Indications: Feeling Anxious. 09/23/19 24 Active QUEtiapine (SEROquel) 200 MG tabletIndications: Delirium 1 tablet (200 mg total) by PO/Per Tube route nightly Indications: Delirium. 09/23/19 24 Active senna-docusate (SENOKOT-S) 8.6-50 MG 1 tablet by PO/Per Tube route nightly. 09/23/19 Active spironolactone (ALDACTONE) 25 MG tablet 0.5 tablets (12.5 mg total) by PO/Per Tube route in the morning. 09/24/19 Active sucralfate (CARAFATE) 1 g tablet 1 tablet (1 g total) by PO/Per Tube route in the morning. 09/24/19 24 Active Active Problems Problem Noted Date Diagnosed Date Respiratory failure 06/16/2023 Immunizations Immunization Administration Dates Next Due Influenza Split 07/31/2023(Deferred: - pt stated she will think about getting the shot, but not today) Influenza, Quadrivalent 07/27/2023(Defer red: Offered and declined - I asked pt & she refused it.) Pfizer SARS-CoV-2 Vaccination 06/16/2023 (Deferred: Not eligible - Medical contraindication - na) Social History Tobacco Use Types Packs/Day Years Used Date Smoking Tobacco: Unknown Tobacco Cessation:Counseling Given: No Comments Unknown Sex and Gender Information Value Date Recorded Sex Assigned at Not on file Legal Sex Female 2:24 PM EDT Gender Identity Not on file Sexual Orientation Not on file Last Filed Vital Signs Vital Sign Reading Time Taken Comments Blood Pressure 121/58 09/23/2023 12:26 PM JACQUARD LOOM FIXER Pulse 87 09/23/2023 12:26 PM JACQUARD LOOM FIXER Temperature 35.9 C (96.6 F) 09/23/2023 7:40 AM JACQUARD LOOM FIXER Respiratory Rate 18 09/23/2023 12:26 PM JACQUARD LOOM FIXER Oxygen Saturation 99% 09/23/2023 7:58 AM JACQUARD LOOM FIXER Inhaled Oxygen Concentration - - Weight 166.9 kg (368 lb) 09/22/2023 4:00 AM JACQUARD LOOM FIXER Height 157.5 cm (5' 2 ) 07/14/2023 2:15 AM JACQUARD LOOM FIXER Body Mass Index 67.31 07/14/2023 2:15 AM JACQUARD LOOM FIXER Plan of Treatment Health Maintenance Due Date Last Done Comments CT Colonography 1973 Colonoscopy 1973 Colorectal Cancer Screening 1973 FIT-DNA (Cologuard) 1973 FIT 1973 FOBT 1973 Sigmoidoscopy 1973 Annual Visit Topic 1974 MMR Vaccines (1 of 1 - Stand maryjo series) 1974 DTaP/Tdap/Td Vaccines (1 - Tdap) 02/20/1980 Hepatitis C Screening 1991 Hepatitis B Vaccines (1 of 3 - 19+ 3-dose series) 02/20/1992 Pap Smear 1994 Cervical Cancer Screening 2003 HPV/Cotest 2003 HIB Vaccines Aged Out No longer eligi ble based on patient's age to complete this topic HPV Vaccines Aged Out No longer eligi ble based on patient's age to complete this topic Hepatitis A Vaccines Aged Out No long er eligible based on patient's age to complete this topic IPV Vaccines Aged Out No longer eligi ble based on patient's age to complete this topic Meningococcal Vaccine Aged Out No jose l brenda eligible based on patient's age to complete this topic Pneumococcal Vaccine: Pediat rics (0 to 5 years) and At-Risk Patients (6 to 64 Years) Aged Out No longer eligible b ased on patient's age to complete this topic Additional Health Concerns Infection Onset Date Last Indicated MRSA 06/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 Yes Care Teams Mop Maker Relationship Specialty Start Date End Date Laurel Lr [address] [place] [address] PCP - General 06/17/23
--- OUTSIDE RECORDS SUMMARY | 2024-11-23 13:23 | XMS_ITS | Encounter Summary ---
Author Organization [facility] Address [address] [place] [address] Care Team Providers Care Mat Maker Name Role Phone Darci Downey MD Primary Care Provider [phone] Encounter Details Date Type Department Care Team (Late st Contact Info) Description 05/30/2023 Chart Note [facility] EAR, NOSE AND THROAT HOLLIE Alea [facility] [address] [place] [address] [address] [place] [address] Sri Rahman RMA Social History Tobacco Use Types Packs/Day Years Used Date Smoking Tobacco: Never Passive Smoke Exposure: Never Smokeless Tobacco: Never Alcohol Use Standard Drinks/Week Comments Never 0 [...] on file Sexual Orientation Not on file documented as of this encounter Plan of Treatment Not on file documented as of this encounter Visit Diagnoses Not on filedocumented in this encounter Additional Health Concerns Infection Onset Date Last Indicated Resolved Time MRSA Comment:06/15/23 sputum 06/12/23 neckResolved per Type and Duration of Precautions Recommended for Selected Infections and Conditions document 2023 update 06/12/2023 06/15/2023 04/26/2024 2:10 PM CDT documented as of this encounter Care Teams Mat Maker Relationship Specialty Start Date End Date Darci Downey MD [address] [place] [address] PCP - General Family Practice 04/23/23 06/15/23 documented as of this encounter
--- OUTSIDE RECORDS SUMMARY | 2024-11-23 13:23 | XMS_ITS | Clinical Summary ---
Author Organization [facility] Address [address] [place] [address] Care Team Providers Care Postdoctoral Research Associate Name Role Phone Unavailable Primary Care Provider Unavailabl e Social History Tobacco Use Types Packs/Day Years Used Date Smoking Tobacco: Never Assessed Comments Unknown Sex and Gender Information Value Date Recorded Sex Assigned at Not on file Legal Sex Female 5:56 PM VAMP STITCHER Gender Identity Not on file Sexual Orientation Not on file Plan of Treatment Health Maintenance Due Date Last Done Comments Cervical Cancer Screening Pa p Smear (Age 30 to 64) Every 3 Years 1973 Colorectal Cancer Screening Colonoscopy (10 Years) 1973 Annual Physical 02/20/1976 Hepatitis C 1991 DTaP, Tdap and Td Vaccines ( 1 - Tdap) 02/20/1992 Hepatitis B Vaccines (1 of 3 - 19+ 3-dose series) 02/20/1992 Cervical Cancer Screening Pa p with HPV Testing (Age 30 to 64) Every 5 Years 2003 Cervical Cancer Screening with HPV 2003 Mammogram Screening 2013 Zoster Vaccines (1 of 2) 2023 COVID-19 Vaccine (2023-2 5 season) 2024 Meningococcal B Vaccine Aged Out No l onger eligible based on patient's age to complete this topic Meningococcal Vaccine Aged Out No jose l brenda eligible based on patient's age to complete this topic Pneumococcal Vaccine: Pediat rics (0 to 5 Years) and At-Risk Patients (6 to 49 Years) Aged Out No longer eligible b ased on patient's age to complete this topic RSV Immunizations Under 20 Months Aged Out No longer eligible based on patient's age to complete this topic
--- OUTSIDE RECORDS SUMMARY | 2024-11-23 14:32 | XMS_ITS | Clinical Summary ---
Author Organization [facility] Address [address] [place] [address] Phone Care Team Providers Care Material Handler 2Nd Shift Name Role Phone Unavailable Primary Care Provider [...] Comments Blood Pressure 122/59 06/16/2023 11:23 AM NEON TUBE PUMPER Pulse 93 06/16/2023 11:23 AM NEON TUBE PUMPER Temperature 36.8 C (98.2 F) 06/16/2023 11:23 AM NEON TUBE PUMPER Respiratory Rate 29 06/16/2023 4:44 PM NEON TUBE PUMPER Oxygen Saturation 98% 06/16/2023 4:44 PM NEON TUBE PUMPER Inhaled Oxygen Concentration - - Weight 227.3 kg (501 lb) 06/16/2023 4:57 AM NEON TUBE PUMPER Height 157.5 cm (5' 2 ) 04/29/2023 [...] 5.1 <5.7 % 04/14/2023 11:24 PM CDT [facility] EST. AVG GLUCOSE, A1C 100 mg/dL 04/14/2023 11:24 PM CDT [facility] Blood Venipuncture / Unknown 04/14/2023 10:51 PM CDT 04/14/2023 11:06 PM CDT Narrative [facility] - 04/14/2023 11:24 PM CDT HGB A1C INTERPRETATION NORMAL: <5.7% PRE-DIABETES: 5.7 - 6.4% DIABETES: 6.5% OR GREATER us Anjel Dorsey DO CHEMISTRY ORDERABLES Final Res ult [facility] [employer] [facility] CLIA# [id number] [address] [place] [address] from Last 3 Months or Most Recently Relevant to Health Maintenance Insurance RX [employer] RX Member Subscriber Plan / Payer (Ef fective 2023-Present) Name:Noemi Nicole Relation to Subscriber:Self Name:Noemi Nicole Subscriber ID:Not on file Payer ID:Not on file Group ID:[id number] Type:RX Medicare Part D Address: [address] [employer] (INTERNAL) [facility] Advance Directives For more information, please contact: [phone] * Full Code (Latest Code Status on File) Date Activated Date Inactivated Comments 04/29/2023 1:22 AM 06/16/2023 7:57 PM * Full Code Date Activated Date Inactivated Comments 04/14/2023 7:48 PM 04/28/2023 8:53 PM
--- OUTSIDE RECORDS SUMMARY | 2024-11-23 14:32 | XMS_ITS | Encounter Summary ---
Author Organization [facility] Address [address] [place] [address] Care Team Providers Care Field Geologist Name Role Phone Darci Downey MD Primary Care Provider [phone] Encounter Details Date Type Department Care Team (Late st Contact Info) Description 05/30/2023 Chart Note [facility] EAR, NOSE AND THROAT HOLLIE Alea [facility] [address] [place] [address] [address] [place] [address] Sri Rahman RMA Social History [...] documented as of this encounter Care Teams Field Geologist Relationship Specialty Start Date End Date Darci Downey MD [address] [place] [address] PCP - General Family Practice 04/23/23 06/15/23 documented as of this encounter
--- OUTSIDE RECORDS SUMMARY | 2024-11-23 14:32 | XMS_ITS ---
Author Organization [facility] Care Team Providers Care Braille Proofreader Name Role Phone Darci Downey Unavailable Unavailable Tamara Rios Unavailable Unavailable Allergies and adverse reactions Code CodeSystem Substance Reaction Severity StartDate Concern Status Sulfamethoxazole /Trim ethoprim Unknown 03/26/[address] Sulfa Antibiotics Unknown 03/26/2023 active Care Team Name Role Address Phone Organization Dates Darci Downey PCP [address] [place], [place], [facility], [facility] (Office): [facility] 04/03/2023 - 04/08/2023 Tamara Rios Attending Physician [address] [place], [place], [facility], [facility] (Office): [facility] 04/03/2023 - 04/08/2023 Problems Problem # Description Date of onset Resolved Date Code CodeSystem Concern Status 1 ACUTE AND CHRONIC RESPIRATORY FAILURE WITH HYPERCAPNIA 03/26/[address] active 2 ACUTE KIDNEY FAILURE, UNSPECIFIED 03/26/[address] active 3 ANEMIA IN CHRONIC KIDNEY DISEASE 03/26/[address] active 4 ANXIETY DISORDER, UNSPECIFIED 03/26/[address] active 5 BODY MASS INDEX [BMI] 70 OR GREATER, ADULT 03/26/[address] active 6 CARDIOMEGALY 03/26/[address] active 7 CELLULITIS OF ABDOMINAL WALL 03/26/[address] active 8 CHRONIC COMBINED SYSTOLIC (CONGESTIVE) AND DIASTOLIC (CONGESTIVE) HEART FAILURE 03/26/[address] active 9 CHRONIC PULMONARY EDEMA 03/26/[address] active 10 DEPRESSION, UNSPECIFIED 03/26/[address] active 11 DIABETES MELLITUS DUE TO UNDERLYING CONDITION WITH HYPOGLYCEMIA WITHOUT COMA 03/26/[address] active 12 ERYTHEMA INTERTRIGO 03/26/[address] active 13 ESSENTIAL (PRIMARY) HYPERTENSION 03/26/[address] active 14 HYPERKALEMIA 03/26/[address] active 15 HYPOTHYROIDISM, UNSPECIFIED 03/26/[address] active 16 IRRITABLE BOWEL SYNDROME WITH DIARRHEA 03/26/[address] active 17 LYMPHEDEMA, NOT ELSEWHERE CLASSIFIED 03/26/[address] active 18 MAGNESIUM DEFICIENCY 03/26/[address] active 19 METHICILLIN RESISTANT STAPHYLOCOCCUS AUREUS INFECTION THE CAUSE OF DISEASES CLASSIFIED ELSEWHERE 03/26/[address] active 20 MORBID (SEVERE) OBESITY WITH ALVEOLAR HYPOVENTILATION 03/26/[address] active 21 MUSCLE WEAKNESS (GENERALIZED) 03/26/[address] active 22 OBSTRUCTIVE SLEEP APNEA (ADULT) (PEDIATRIC) 03/26/[address] active 23 OTHER ABNORMALITIES OF GAIT AND MOBILITY 03/26/[address] active 24 OTHER IDIOPATHIC PERIPHERAL AUTONOMIC NEUROPATHY 03/26/[address] active 25 POLYP OF COLON 03/26/[address] active 26 PULMONARY HYPERTENSION, UNSPECIFIED 03/26/[address] active 27 REPEATED FALLS 03/26/[address] active 28 SHORTNESS OF BREATH 03/26/[address] active 29 THIAMINE DEFICIENCY, UNSPECIFIED 03/26/[address] active 30 UNSPECIFIED OPEN WOUND OF ABDOMINAL WALL, LEFT LOWER QUADRANT WITHOUT PENETRATION INTO PERITONEAL CAVITY, SUBSEQUENT ENCOUNTER 03/26/[address] active 31 VITAMIN D DEFICIENCY, UNSPECIFIED 03/26/[address] active Reason for Referral No Reasons for Referral Entered Social History Social History Observation Description Start Date End Date Code Code System Current Smoking Status Tobacco smoking consumption unknown 760185572 SNOMED CT Sex Assigned At Female 1975 71757-4 [facility] Vital Signs Code Code System Vitals Name Values and Units Timing Information 9279-1 [facility] Respiratory Rate Value=16.0 Units=/m in 04/08/2023 8462-4 [facility] Blood Pressure-Diastolic Value=64 Un its=mmHg 04/08/2023 8480-6 [facility] Blood Pressure-Systolic Voapm=421 Un its=mmHg 04/08/2023 8310-5 [facility] Body Temperature Value=98.5 Units= F 04/08/2023 8867-4 [facility] Heart rate Value=78.0 Units=/min 2339-0 [facility] Blood Sugar Pdoqk=474.0 Units=mg/dL 04/08/2023 63266-4 [facility] O2 % BldC Oximetry Value=91.0 Units= % 04/08/2023 59496-4 [facility] Pain Level Value=0.0 04/08/2023 8302-2 [facility] Height Value=63.0 Units=Inches 04/03/2023 68782-8 [facility] Weight Cqgtx=938.0 Units=Lbs
--- OUTSIDE RECORDS SUMMARY | 2024-11-23 14:32 | XMS_ITS | Clinical Summary ---
Author Organization [facility] Address [address] [place] [address] Care Team Providers Care Center Administrator Name Role Phone Unavailable Primary Care Provider Unavailabl e Source Comments [facility],non-owned Affiliates and Associated Physician Practices is amultiple site organization consisting of ambulatory clinics and hospital sitesin [place], [place], [place] and [place]. This disclosure is being madepursuant to the Care Everywhere program and may not contain all information available regarding this patient. Last updated 18.[facility] [employer] Allergies No known active allergies Social History Tobacco Use Types Packs/Day Years Used Date Smoking Tobacco: Never Assessed Comments Unknown Sex and Gender Information Value Date Recorded Sex Assigned at Not on file Legal Sex Female 1:24 PM CDT Gender Identity Not on file Sexual Orientation Not on file Last Filed Vital Signs Vital Sign Reading Time Taken Comments Blood Pressure 111/50 07/25/2023 3:20 PM ZIPPER JOINER Pulse 80 07/25/2023 1:54 PM ZIPPER JOINER Temperature 36.7 C (98 F) 07/25/2023 1:54 PM ZIPPER JOINER Respiratory Rate 16 07/25/2023 1:54 PM ZIPPER JOINER Oxygen Saturation 100% 07/25/2023 3:00 PM ZIPPER JOINER Inhaled Oxygen Concentration 60% 07/25/2023 1 :15 PM ZIPPER JOINER Weight - - Height - - Body Mass Index - - Plan of Treatment Health Maintenance Due Date Last Done Comments COLOGUARD (AGES 45-75) - COLON CA SCREENING 1973 COLON MONITORING 1973 COLONOSCOPY - COLON CA SCREENING 1973 CT COLONOGRAPHY - COLON CA SCREENING 1973 Colorectal Cancer Screening 1973 FIT - COLON CA SCREENING 1973 FLEX SIG - COLON CA SCREENING 1973 MAMMOGRAM 1973 PAP SMEAR 1973 HIV SCREENING 02/20/1988 HEPATITIS C SCREENING 02/15/1991 DTAP/TDAP/TD VACCINES (1 - Tdap) 02/20/1992 HEPATITIS B VACCINE (1 of 3 - 19+ 3-dose series) 02/20/1992 PNEUMOCOCCAL VACCINE 50+ (1 of 1 - PCV) 2023 ZOSTER VACCINE (1 of 2) 2023 COVID-19 VACCINE (1 - season) 2024 DEPRESSION SCREENING 08/11/2024 MEDICARE AWV CALENDAR YEAR 2024 INFLUENZA VACCINE (Season Ended) 2025 LIPID TESTING 06/16/2028 06/16/2023, 12/2022, 06/14/2023, Additional history exists HIB VACCINE Aged Out No longer eligi ble based on patient's age to complete this topic HPV VACCINE Aged Out No longer eligi ble based on patient's age to complete this topic MENINGOCOCCAL (Group B) VACCINE SHARED DECISION-MAKING Aged Out No longer eligible based on patient's age to complete this topic MENINGOCOCCAL GROUPS A/C/Y/W VACCINE Aged Out No longer eligible based on patient's age to complete this topic Additional Health Concerns Infection Onset Date Last Indicated MRSA 07/21/2023 07/21/2023 Insurance [facility] MANAGED MEDICARE ADV
--- OUTSIDE RECORDS SUMMARY | 2024-11-23 14:32 | XMS_ITS | Clinical Summary ---
Author Organization [facility] Address [address] [place] [address] Care Team Providers Care Armor Senior Sergeant Name Role Phone Laurel Lr Primary Care Provider [phone] Allergies Active Allergy Reactions Criticality Noted Date [...] Comments Blood Pressure 121/58 09/23/2023 12:26 PM TOOL REPAIR TECHNICIAN Pulse 87 09/23/2023 12:26 PM TOOL REPAIR TECHNICIAN Temperature 35.9 C (96.6 F) 09/23/2023 7:40 AM TOOL REPAIR TECHNICIAN Respiratory Rate 18 09/23/2023 12:26 PM TOOL REPAIR TECHNICIAN Oxygen Saturation 99% 09/23/2023 7:58 AM TOOL REPAIR TECHNICIAN Inhaled Oxygen Concentration - - Weight 166.9 kg (368 lb) 09/22/2023 4:00 AM TOOL REPAIR TECHNICIAN Height 157.5 cm (5' 2 ) 07/14/2023 2:15 AM TOOL REPAIR TECHNICIAN Body Mass Index 67.31 07/14/2023 2:15 AM TOOL REPAIR TECHNICIAN Plan of Treatment Health Maintenance Due Date [...] have received informed consent. Yes Care Teams Armor Senior Sergeant Relationship Specialty Start Date End Date [address]urel Lr [address] [place] [address] PCP - General 06/17/23
--- OUTSIDE RECORDS SUMMARY | 2024-11-23 14:32 | XMS_ITS | Clinical Summary ---
Author Organization [facility] Address [address] [place] [address] Care Team Providers Care Insole Tape Stitcher Uco Name Role Phone Unavailable Primary Care Provider Unavailabl e Social History Tobacco Use Types Packs/Day Years Used Date Smoking Tobacco: Never Assessed Comments Unknown Sex and Gender Information Value Date Recorded Sex Assigned at Not on file Legal Sex Female 5:56 PM DOCUMENTATION LIAISON Gender Identity Not on file Sexual Orientation [...]
--- NOTE | 2024-11-23 14:54 | ED.SKABFB ---
HPI - Skin/Abscess/Foreign Bdy General Chief complaint: Skin/Abscess/Foreign Body Stated complaint: Weeping legs-belly Time Seen by Provider: 11/23/24 13:29 History of Present Illness HPI narrative: Patient will noticed over last few days that she will leave a puddle of wetness she gets up, worse on the right side, and some of it seems to go down her right leg especially with some wetness and blood. She called her doctor who told her that it might be CHF and she needs to come into the hospital. No increased shortness of breath. Related Data Home Medications ?Medication ?Instructions ?Recorded ?Confirmed ?Last Taken ?Type Daily Multivitamin 1 tablet PO DAILY 09/23/23 11/23/24 11/22/24 History acetaminophen 325 mg tablet 650 mg PO Q6H PRN Pain 09/23/23 11/23/24 Unknown History bumetanide 2 mg tablet 2 mg PO .COMPLEX 11/23/24 11/23/24 11/22/24 History Allergies Allergy/AdvReac Type Severity Reaction Status Date / Time Sulfa (Sulfonamide Allergy Mild HIVES, Verified 12/29/23 14:45 Antibiotics) SWELLING sulfamethoxazole Allergy Mild HIVES, Verified 12/29/23 14:45 SWELLING trimethoprim Allergy Unknown Hives Verified 12/29/23 14:45 Review of Systems Review of Systems: All systems reviewed & are unremarkable except as noted in HPI and below PMFSH Past Medical History Medical History (Updated 11/23/24 @ 17:06 by Gerda Boyle PA-C) Chronic kidney disease, stage 3 Cellulitis due to MRSA Gastroesophageal reflux disease Obstructive sleep apnea treated with BiPAP Chronic respiratory failure with hypoxia and hypercapnia Adenomatous colon polyp Depression Hypothyroidism Pulmonary hypertension Heart failure with preserved ejection fraction Chronic anticoagulation Paroxysmal atrial fibrillation Type 2 diabetes mellitus Essential hypertension Restless leg syndrome Anxiety Vitamin B12 deficiency Idiopathic peripheral neuropathy Irritable bowel syndrome with diarrhea Lymphedema of both lower extremities Morbid obesity Psoriasis Vitamin D deficiency Surgical History Surgical History (Updated 11/23/24 @ 17:04 by Gerda Boyle PA-C) History of arthroscopy of left knee History of tracheostomy (05/2023) History of section History of dilation and curettage History of cholecystectomy History of tonsillectomy and adenoidectomy Family History Family History Mother Hypertension Sibling Hypertension Family history of congestive heart failure Other Family history of arthritis Social History Social History (Updated 11/23/24 @ 17:05 by Gerda Boyle PA-C) Social History: Surrogate medical decision maker: Code status: Full code. Smoking status: Never smoker Second hand tobacco smoke exposure: No Alcohol intake: never Substance use: never Substance use type: does not use Do You Feel Safe in your Home?: Yes Lack of Transportation: YES Lack of Food: Sometimes True Current Housing: I Have Housing Concerned About Future Housing: No Difficulty Paying Gas/Electric Bills: No Difficulty Paying for Meds: YES Currently Unemployed: No Education: High School Diploma/GED Difficulty w/ Childcare or Family Care: No Additional living arrangements comments: Lives in [place]. Has 1 child. Additional occupation/education comments: Disabled. Spiritual care concerns: No Agree to blood products: Yes Exam Narrative: EXAMINATION OF ORGAN SYSTEMS/BODY AREAS: Constitutional: Vital signs per nursing GENERAL:[No acute distress, non-toxic appearing.] HEAD: Normal with no signs of head trauma. EYES: EOMI, conjunctiva normal ENT: Hearing grossly intact LUNGS: Nonlabored breathing. HEART: [Regular rate and rhythm] ABD: Extremely obese, very large pannus deep in the skin folds the skin is wet, raw, with slightly bleeding ulcers that do not appear infected EXT: Normal range of motion SKIN: Raw wet skin and ulcers in between multiple skin folds; no decubitus ulcers, no weeping from either legs NEURO: [Alert and oriented x 3. No gross focal sensory or strength deficits.] PSYCH: Normal affect Course Vital Signs Vital signs: Vital Signs Temperature 97.6 F 11/23/24 12:31 Pulse Rate 68 11/23/24 12:31 Respiratory Rate 20 11/23/24 12:31 Blood Pressure 123/100 H 11/23/24 12:31 Pulse Oximetry 100 11/23/24 12:31 Oxygen Delivery Room Air 11/23/24 12:31 Temperature 97.6 F 11/23/24 12:31 Pulse Rate 71 11/23/24 15:59 Respiratory Rate 19 11/23/24 15:59 Blood Pressure 130/73 11/23/24 15:59 Pulse Oximetry 97 11/23/24 15:59 Oxygen Delivery Room Air 11/23/24 13:47 MDM - Skin/Abscess/Foreign Bdy MDM Narrative Medical decision making narrative: Patient presents here due to leaking of fluids, she is unsure of the source but she told her doctor who told her that it might be CHF and she should come to the ER immediately. On exam, I did inspect her entire body, she has multiple skin folds rubbing against each other and are wet, raw skin creating shallow wounds to her abdominal skin fold that are friable/bleeding. No leaking of fluid or any pitting edema to either extremity. I did let the patient know this, that I felt this was less likely to be her CHF exacerbation and more likely the source is from the wounds that are rubbing against each other of her belly folds/pannus. Patient was extremely anxious and nervous about going home since she lives alone. I did obtain basic labs that are at her baseline but she would like to be admitted for diuresis. Discussed with hospitalist for admission. Lab Data 11/23/24 15:09 11/23/24 15:09 Labs: Lab Results 11/23/24 Range/Units 15:09 WBC 7.2 (4.5-10.0) K/mm3 RBC 4.25 (4.2-5.4) M/mm3 Hgb 11.2 L (12.0-15.0) g/dL Hct 36.8 L (37.0-47.0) % MCV 86.6 (80-100) fl MCH 26.4 (26-34) pg MCHC 30.4 L (32-36) g/dl RDW 15.3 H (11.5-14.5) % Plt Count 183 (150-375) k/mm3 MPV 9.5 (7.4-10.4) fl Immature Gran % (Auto) 0.3 (0-0.5) % Neut % (Auto) 75.0 H (45.5-73.1) % Lymph % (Auto) 15.9 L (18.3-44.2) % [place] % (Auto) 6.6 (2.6-8.5) % Eos % (Auto) 1.8 (0-4.4) % Baso % (Auto) 0.4 (0.2-1.2) % Lymph # (Auto) 1.14 (0.9-3.2) K/mm3 [place] # (Auto) 0.5 (0.1-0.6) K/mm3 Eos # (Auto) 0.1 (0-0.3) K/mm3 Baso # (Auto) 0.0 (0.0-0.1) K/mm3 Abs Immat Gran (auto) 0.02 (0.00-0.031) K/mm3 Absolute Neuts (auto) 5.4 (1.3-6.7) K/mm3 Absolute Nucleated RBC 0.000 (0.0-0.012) K/mm3 Nucleated RBC % 0.0 (0.0-0.2) % Sodium 138 (137-145) mmol/L Potassium 3.9 (3.4-5.0) mmol/L Chloride 101 (98-107) mmol/L Carbon Dioxide 30 (22-30) mmol/L Anion Gap 7 (4-12) mmol/L BUN 22 H D (7-17) mg/dL Creatinine 1.38 H (0.7-1.0) mg/dL Estim Creat Clear Calc 75 ml/min Estimated GFR 40 L (59 - ) Glucose 129 H (65-110) mg/dL Calcium 8.7 (8.4-10.2) mg/dL NT-Pro-B Natriuret Pep 1020 H (19.9-100) pg/mL Discharge Plan Discharge Clinical Impression: Skin ulcer of abdomen, Volume overload Patient Disposition: Still a Patient Condition: Stable
[2024-11-23 15:17] LABS: Basophils Percent Auto 0.4 % (0.2-1.2); Eosinophils Absolute Auto 0.1 K/mm3 (0-0.3); Eosinophils Percent Auto 1.8 % (0-4.4); Hematocrit 36.8 % (37.0-47.0); Hemoglobin 11.2 g/dL (12.0-15.0); Immature Granulocyte Absolute 0.02 K/mm3 (0.00-0.031); Immature Granulocyte Percent A 0.3 % (0-0.5); Lymphocytes Absolute Auto 1.14 K/mm3 (0.9-3.2); Lymphocytes Percent Auto 15.9 % (18.3-44.2); Mean Corpuscular HGB Conc 30.4 g/dl (32-36); Mean Corpuscular Hemoglobin 26.4 pg (26-34); Mean Corpuscular Volume 86.6 fl (80-100); Mean Platelet Volume 9.5 fl (7.4-10.4); Monocytes Absolute Auto 0.5 K/mm3 (0.1-0.6); Monocytes Percent Auto 6.6 % (2.6-8.5); Neutrophils Absolute Auto 5.4 K/mm3 (1.3-6.7); Platelet Count Result 183 k/mm3 (150-375); Red Blood Count 4.25 M/mm3 (4.2-5.4); Red Cell Distribution Width 15.3 % (11.5-14.5); White Blood Count 7.2 K/mm3 (4.5-10.0)
[2024-11-23 15:25] LABS: Anion Gap 7 mmol/L (4-12); Blood Urea Nitrogen 22 mg/dL (7-17); Calcium 8.7 mg/dL (8.4-10.2); Carbon Dioxide 30 mmol/L (22-30); Chloride 101 mmol/L (98-107); Estimated CRCL calculation 75 ml/min; Estimated Glomerular Filt Rate 40; Glucose 129 mg/dL (65-110); Potassium 3.9 mmol/L (3.4-5.0); Sodium 138 mmol/L (137-145)
[2024-11-23 15:34] LABS: NT Pro B Type Natriuretic Pept 1020 pg/mL (19.9-100)
[2024-11-23] MEDS: BUMETANIDE INJ 1 MG/4 ML VIAL IV PUSH ×2 (16:09→22:50)
--- NOTE | 2024-11-23 16:34 | PC.NURSE ---
Meal tray ordered for pt
--- NOTE | 2024-11-23 16:50 | P.HP_ITS ---
H&P: HPI History of Present Illness Date/Time: 11/23/24 20:00 Chief Complaint: Weeping from legs and abdomen. Narrative: This is a very pleasant 49-year-old morbidly obese female with history of heart failure with preserved ejection fraction, pulmonary hypertension, obesity hypoventilation syndrome, obstructive sleep apnea on BiPAP, tracheostomy in 05/2023, paroxysmal atrial fibrillation on chronic anticoagulation, chronic kidney disease stage 3, hypertension, [id number]-[id number] type 2 diabetes mellitus, hypothyroidism, lymphedema, depression, and anxiety who presented to the emergency department via EMS with complaints of weeping from legs and abdomen. She has chronic lymphedema which is typically worse in her right leg however over the past 7 to 10 days she has noticed a drastic increase in size of her legs as well as weight gain and increase in abdominal girth. Fluid is weeping from areas of breakdown under the panniculus. She is also feeling more short of breath than usual. Otherwise she is feeling okay. She is compliant with her medications and has not changed her diet or fluid intake. She denies fever, chills, sweats, cold and flu symptoms, chest pain, pleuritic pain, palpitations, nausea, vomiting, diarrhea, dysuria, and calf pain. In the ED: Vital signs were stable on arrival. Labs were significant for WBC count of 7.2, hemoglobin 11.2, BUN 22, creatinine 1.38, glucose 129, proBNP 1020. Chest x-ray shows moderately enlarged cardiac silhouette and pulmonary edema. She was given 1 mg bumetanide and she is being admitted in this setting for further diuresis. Review of Systems Review of Systems: 12 systems were reviewed and are negativ e except for as per HPI. [facility] Past Medical History Medical History Chronic kidney disease, stage 3 Cellulitis due to MRSA Gastroesophageal reflux disease Obstructive sleep apnea treated with BiPAP Chronic respiratory failure with hypoxia and hypercapnia Adenomatous colon polyp Depression Hypothyroidism Pulmonary hypertension Heart failure with preserved ejection fraction Chronic anticoagulation Paroxysmal atrial fibrillation Type 2 diabetes mellitus Essential hypertension Restless leg syndrome Anxiety Vitamin B12 deficiency Idiopathic peripheral neuropathy Irritable bowel syndrome with diarrhea Lymphedema of both lower extremities Morbid obesity Psoriasis Vitamin D deficiency Surgical History Surgical History History of arthroscopy of left knee History of tracheostomy (05/2023) History of section History of dilation and curettage History of cholecystectomy History of tonsillectomy and adenoidectomy Family History Family History Mother Hypertension Sibling Hypertension Family history of congestive heart failure Other Family history of arthritis Social History Social History (Updated 11/23/24 @ 21:49 by Gerda Boyle PA-C) Social History: Surrogate medical decision maker: Robert Francis, son. Code status: Full code. Smoking status: Never smoker Second hand tobacco smoke exposure: No Alcohol intake: never Substance use: never Substance use type: does not use Do You Feel Safe in your Home?: Yes Lack of Transportation: YES Lack of Food: Never True Current Housing: I Have Housing Concerned About Future Housing: No Difficulty Paying Gas/Electric Bills: No Difficulty Paying for Meds: No Currently Unemployed: No Education: High School Diploma/GED Difficulty w/ Childcare or Family Care: No Additional living arrangements comments: Lives in [place]. Has 1 child. Additional occupation/education comments: Disabled. Spiritual care concerns: No Agree to blood products: Yes Meds Home Medications and Allergies Home Medications ?Medication ?Instructions ?Recorded ?Confirmed ?Type Daily Multivitamin 1 tablet PO DAILY 09/23/23 11/23/24 History acetaminophen 325 mg tablet 650 mg PO Q6H PRN Pain 09/23/23 11/23/24 History ferrous sulfate 325 mg (65 mg 325 mg PO DAILY #100 tabs 12/31/23 11/23/24 Rx iron) tablet,delayed release miconazole nitrate 2 % topical 1 applic topical BID #85 grams 01/23/24 11/23/24 Rx powder apixaban 5 mg tablet (Eliquis) 5 mg PO Q12HR #60 tabs 05/06/24 11/23/24 Rx empagliflozin 10 mg tablet 10 mg PO DAILY #90 tabs 06/15/24 11/23/24 Rx (Jardiance) quetiapine 100 mg tablet (Seroquel) 200 mg (2 x 100 mg) PO HS 30 days 07/12/24 11/23/24 Rx #60 tabs diltiazem HCl 300 mg 300 mg PO QAM #30 caps 07/27/24 11/23/24 Rx capsule,extended release 24 hr metoprolol tartrate 25 mg tablet 12.5 mg (1/2 x 25 mg) PO BID #30 07/27/24 11/23/24 Rx tabs pantoprazole 40 mg tablet,delayed 40 mg PO BID #60 tabs 07/27/24 11/23/24 Rx release spironolactone 25 mg tablet 25 mg PO DAILY #30 tabs 07/27/24 11/23/24 Rx levothyroxine 75 mcg tablet 75 mcg PO DAILY #30 tabs 07/30/24 11/23/24 Rx potassium chloride 20 mEq 40 meq (2 x 20 mEq) PO DAILY #60 08/26/24 11/23/24 Rx tablet,extended release (K-Tab) tabs paroxetine HCl 10 mg tablet 10 mg PO QAM #30 tabs 08/27/24 11/23/24 Rx lamotrigine 100 mg tablet 100 mg PO DAILY #30 tabs 10/25/24 11/23/24 Rx trazodone 50 mg tablet 50 mg PO QHS PRN insomnia #30 tabs 10/25/24 11/23/24 Rx sucralfate 1 gram tablet 1 g PO DAILY #30 tabs 10/29/24 11/23/24 Rx buspirone 15 mg tablet 15 mg PO TID #90 tabs 11/18/24 11/23/24 Rx bumetanide 2 mg tablet 2 mg PO .COMPLEX 11/23/24 11/23/24 History Allergies Allergy/AdvReac Type Severity Reaction Status Date / Time Sulfa (Sulfonamide Allergy Mild HIVES, Verified 11/23/24 18:28 Antibiotics) SWELLING sulfamethoxazole Allergy Mild HIVES, Verified 11/23/24 18:28 SWELLING trimethoprim Allergy Unknown Hives Verified 11/23/24 18:28 Vital Signs Vital Signs - 24 hr 11/23/24 12:31 11/23/24 13:47 11/23/24 14:30 Temperature 97.6 F Pulse Rate 68 71 72 Respiratory Rate 20 19 18 Blood Pressure 123/100 H 131/53 L 133/59 L Pulse Oximetry 100 100 100 Oxygen Delivery Room Air Room Air 11/23/24 15:15 11/23/24 15:59 Temperature Pulse Rate 71 71 Respiratory Rate 20 19 Blood Pressure 130/66 130/73 Pulse Oximetry 98 97 Oxygen Delivery Exam Narrative: General: Nontoxic-appearing female sitting up in bed in no acute distress. Weight: 194.5 kg. BMI: 73.6. HEENT: PERRL, EOMI. Sclera anicteric. Oral mucosa moist. Oropharynx is crowded. Neck: Supple. Exam limited due to neck circumference. Respiratory: Respirations are nonlabored she is speaking in full sentences. Lung sounds are diminished due to body habitus with faint crackles at the bases. Cardiovascular: Regular rate and rhythm with S1-S2. Gastrointestinal: Abdomen is morbidly obese and nontender with positive bowel sounds. Skin: Warm and dry. Erythema and shallow ulcerations in multiple skin folds with weeping coming from the wounds on the abdomen. Mild bleeding. The area does not appear infected. Dry skin on the lower legs. Toenails are long. Scattered psoriatic plaques along the scalp line. Extremities: No cyanosis or clubbing. Legs are large with chronic lymphedema, right greater than left. Neurological: Alert. Cranial nerves 2-12 are grossly intact. No gross focal deficits to casual conversation. Psychiatric: Pleasant and cooperative with normal mood and affect. Judgment and insight intact. H&P: Results Labs Labs: Short CBC 11/23/24 Range/Units 15:09 WBC 7.2 (4.5-10.0) K/mm3 Hgb 11.2 L (12.0-15.0) g/dL Hct 36.8 L (37.0-47.0) % Plt Count 183 (150-375) k/mm3 BMP 11/23/24 15:09 Sodium 138 Potassium 3.9 Chloride 101 Carbon Dioxide 30 BUN 22 H D Creatinine 1.38 H Glucose 129 H Calcium 8.7 Imaging Chest X-Ray 11/23/24 15:12 IMPRESSION: Cardiomegaly with cardiac decompensation and pulmonary edema. Superimposed pneumonitis cannot be excluded. Clinical correlation advised. Assessment and Plan Assessment and plan (1) Volume overload: Code(s): E87.70 - Fluid overload, unspecified Status: Acute (2) Intertrigo: Code(s): L30.4 - Erythema intertrigo Status: Acute (3) Heart failure with preserved ejection fraction: Code(s): I50.30 - Unspecified diastolic (congestive) heart failure Status: Acute (4) Chronic kidney disease, stage 3: Code(s): N18.30 - Chronic kidney disease, stage 3 unspecified Status: Acute (5) Paroxysmal atrial fibrillation: Code(s): I48.0 - Paroxysmal atrial fibrillation Status: Acute (6) Chronic anticoagulation: Code(s): Z79.01 - [employer] (current) use of 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 Status: Acute (7) Essential hypertension: Code(s): I10 - Essential (primary) hypertension Status: Acute (8) Type 2 diabetes mellitus: Code(s): E11.9 - Type 2 diabetes mellitus without complications Status: Acute (9) Hypothyroidism: Code(s): E03.9 - Hypothyroidism, unspecified Status: Acute (10) Morbid obesity: Code(s): E66.01 - Morbid (severe) obesity due to excess calories Status: Acute (11) Obstructive sleep apnea treated with BiPAP: Code(s): G47.33 - Obstructive sleep apnea (adult) (pediatric) Status: Acute Plan The patient presented to the emergency department for evaluation of increasing lower extremity edema and increased abdominal girth over the past 7 to 10 days as detailed in HPI. She is significantly edematous and volume overload is likely due to a combination of diastolic heart failure, weight, and decreased mobility. She will be diuresed with close monitoring of volume status, renal function, and electrolytes. Echocardiogram ordered. Wound nurse consulted for recommendations regarding skin breakdown. There does not appear to be any evidence of infection. She sounds to be normal sinus rhythm. Continue apixaban for stroke prophylaxis. Kidney function is stable and will be monitored. Blood pressures are reasonable and will be monitored. Initiate sliding scale insulin, Accu-Cheks, and hypoglycemic protocol. Check hemoglobin A1c and TSH. BiPAP will be provided for the patient to use while hospitalized. The patient's toenails are long and she is unable to get out of the home for appointments. I will ask Podiatry to see if they would be willing to see her as an inpatient. Her home medications will be reviewed and resumed as appropriate. Findings and treatment plan were discussed with the patient. Questions were solicited and answered to satisfaction. The patient's medical management will be taken over by the hospitalist team in a.m. Quality VTE Prophylaxis VTE prophylaxis: pharmacologic ordered (on apixaban) The patient has been admitted under observation status. Hospitalist [facility] Advance Care Plan I have confirmed that the patient's Advanced Care Plan is present, code status is documented, or surrogate decision maker is listed in patient medical record.: Yes Medication Reconciliation I have utilized all available resources to obtain, update and review the patients current medications (includes all prescriptions, OTC, herbals, cannabis, and nutritional supplements).: Yes
--- NOTE | 2024-11-23 18:20 | PC.NURSE ---
This patient, Peg Nicole, was admitted to [facility] Surg Room 327-01. Patient/family oriented to hospital policies and general routines including ID bracelet, bed and alarms, visiting hours, pain management, procedures, bathroom and other care routines, personal items, smoking policy, room service/diet, and visiting hours. Information on how to activate the Rapid Response Team has been discussed. Patient/Family are encouraged to report perceived risks to care and to ask questions if they do not understand what they are told or what they should do.
[2024-11-23] MEDS: METOPROLOL TARTRATE 12.5 MG TABLET PO (22:50)
[2024-11-23] MEDS: APIXABAN 5 MG TABLET PO (22:50)
[2024-11-23] MEDS: busPIRone HCL 5 MG TABLET 15 MG PO (22:50)
[2024-11-23] MEDS: QUEtiapine FUMARATE 100 MG TABLET 200 MG PO (22:50)
[2024-11-23] MEDS: PANTOPRAZOLE 40 MG TABLET PO (22:51)
[2024-11-23 23:08] LABS: Glucose Point of Care 133 mg/dl (65-105)
[2024-11-24] VITALS (7 sets, daily range): BP systolic 123–145; BP diastolic 51–68; PULSE 76–89; RESP 18; TEMP 36–37.1; O2SAT 93–98
[2024-11-24 05:55] LABS: Hematocrit 35.5 % (37.0-47.0); Hemoglobin 10.6 g/dL (12.0-15.0); Mean Corpuscular HGB Conc 29.9 g/dl (32-36); Mean Corpuscular Hemoglobin 26.8 pg (26-34); Mean Corpuscular Volume 89.9 fl (80-100); Mean Platelet Volume 9.7 fl (7.4-10.4); Platelet Count Result 179 k/mm3 (150-375); Red Blood Count 3.95 M/mm3 (4.2-5.4); Red Cell Distribution Width 15.1 % (11.5-14.5); White Blood Count 6.3 K/mm3 (4.5-10.0)
[2024-11-24 06:09] LABS: Anion Gap 5 mmol/L (4-12); Blood Urea Nitrogen 22 mg/dL (7-17); Calcium 8.3 mg/dL (8.4-10.2); Carbon Dioxide 33 mmol/L (22-30); Chloride 101 mmol/L (98-107); Estimated CRCL calculation 69 ml/min; Estimated Glomerular Filt Rate 36; Glucose 133 mg/dL (65-110); Magnesium 2.4 mg/dL (1.6-2.3); Potassium 3.8 mmol/L (3.4-5.0); Sodium 139 mmol/L (137-145)
[2024-11-24] MEDS: LEVOTHYROXINE SODIUM 75 MCG TABLET PO (06:14)
--- NOTE | 2024-11-24 06:50 | PCRCNOTE ---
Patient placed on overnight oximetry, on BiPAP. 0230: Placed on nasal cannula 5 L/min. Overnight Oximetry report too short and shows no data to print
[2024-11-24 08:01] LABS: Glucose Point of Care 125 mg/dl (65-105)
[2024-11-24] MEDS: SUCRALFATE 1 GM TABLET PO (09:15)
[2024-11-24] MEDS: lamoTRIgine 100 MG TABLET PO (09:15)
[2024-11-24] MEDS: busPIRone HCL 5 MG TABLET 15 MG PO ×3 (09:16→16:58)
[2024-11-24] MEDS: METOPROLOL TARTRATE 12.5 MG TABLET PO ×2 (09:16→16:58)
[2024-11-24] MEDS: POTASSIUM CHLORIDE 20 MEQ ER TABLET 40 MEQ PO (09:16)
[2024-11-24] MEDS: APIXABAN 5 MG TABLET PO ×2 (09:17→20:45)
[2024-11-24] MEDS: PARoxetine 10 MG TABLET PO (09:17)
[2024-11-24] MEDS: dilTIAZem HCL CD 300 MG CAP.24HR PO (09:17)
[2024-11-24] MEDS: MULTIVITAMINS THERAPEUTIC TAB (*BKC) 1 TABLET PO (09:18)
[2024-11-24] MEDS: PANTOPRAZOLE 40 MG TABLET PO ×2 (09:18→16:59)
[2024-11-24] MEDS: EMPAGLIFLOZIN 10 MG TABLET PO (09:18)
[2024-11-24] MEDS: FERROUS SULFATE 325 MG TABLET DR PO (09:18)
[2024-11-24] MEDS: SPIRONOLACTONE 25 MG TABLET PO (09:19)
[2024-11-24] MEDS: BUMETANIDE INJ 1 MG/4 ML VIAL IV PUSH ×2 (09:19→16:59)
--- NOTE | 2024-11-24 10:52 | PM.IMPN ---
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 Status: Acute (7) Essential hypertension: Code(s): I10 - Essential (primary) hypertension Status: Acute (8) Type 2 diabetes mellitus: Code(s): E11.9 - Type 2 diabetes mellitus without complications Status: Acute (9) Hypothyroidism: Code(s): E03.9 - Hypothyroidism, unspecified Status: Acute (10) Morbid obesity: Code(s): E66.01 - Morbid (severe) obesity due to excess calories Status: Acute (11) Obstructive sleep apnea treated with BiPAP: Code(s): G47.33 - Obstructive sleep apnea (adult) (pediatric) Status: Acute Plan Acute chronic heart failure The patient presented to the emergency department for evaluation of increasing lower extremity edema and increased abdominal girth over the past 7 to 10 days significantly edematous and volume overload diastolic heart failure on per echocardiogram, Continue Bumex 1 mg b.i.d. IV push Monitor input output, renal function, and electrolytes. Echocardiogram ordered. Paroxysmal AFib Normal sinus rhythm. Continue apixaban for stroke prophylaxis. CKD stage 3 Creatinine 1.51 today, slightly elevated, within the baseline Follow-up BMP Blood pressures monitored. Type 2 diabetes Initiate sliding scale insulin, Accu-Cheks, and hypoglycemic protocol. Check hemoglobin A1c and TSH. ZULEIKA BiPAP will be provided for the patient to use while hospitalized. The patient's toenails are long and have fungal infection She is unable to get out of the home for appointments. 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 Patient denies chest pain abdomen pain nausea vomiting diarrhea Exam Narrative: General: Nontoxic-appearing female sitting up in bed in no acute distress. Weight: 194.5 kg. BMI: 73.6. HEENT: PERRL, EOMI. Sclera anicteric. Oral mucosa moist. Oropharynx is crowded. Neck: Supple. Exam limited due to neck circumference. Respiratory: Respirations are nonlabored she is speaking in full sentences. Lung sounds are diminished due to body habitus with faint crackles at the bases. Cardiovascular: Regular rate and rhythm with S1-S2. Gastrointestinal: Abdomen is morbidly obese and nontender with positive bowel sounds. Skin: Scaly and patchy rashes in multiple skin folds with weeping coming from the wounds on the lower abdomen. Extremities: No cyanosis or clubbing. Legs are large with chronic lymphedema, right greater than left. Neurological: Alert. Cranial nerves 2-12 are grossly intact. No gross focal deficits to casual conversation. Psychiatric: Pleasant and cooperative with normal mood and affect. Judgment and insight intact. Objective Data Vital Signs Vital Signs: Vital Signs - 24 hr 11/23/24 12:31 11/23/24 13:47 11/23/24 14:30 Temperature 97.6 F Pulse Rate 68 71 72 Respiratory Rate 20 19 18 Blood Pressure 123/100 H 131/53 L 133/59 L Pulse Oximetry 100 100 100 Oxygen Delivery Room Air Room Air 11/23/24 15:15 11/23/24 15:59 11/23/24 16:30 Temperature Pulse Rate 71 71 72 Respiratory Rate 20 19 17 Blood Pressure 130/66 130/73 147/99 H Pulse Oximetry 98 97 95 Oxygen Delivery 11/23/24 17:00 11/23/24 17:30 11/23/24 18:19 Temperature Pulse Rate 84 76 76 Respiratory Rate 16 19 19 Blood Pressure 125/74 128/95 H 139/57 L Pulse Oximetry 100 100 96 Oxygen Delivery 11/23/24 18:39 11/23/24 22:00 11/23/24 22:50 Temperature 97.9 F 97.8 F Pulse Rate 80 86 86 Respiratory Rate 20 18 Blood Pressure 118/55 L 129/42 L Pulse Oximetry 98 98 Oxygen Delivery 11/24/24 06:00 11/24/24 09:16 Temperature 97.0 F L Pulse Rate 86 87 Respiratory Rate 18 Blood Pressure 123/51 L Pulse Oximetry 93 Oxygen Delivery Intake/Output Intake/Output: Intake & Output 11/21/24 11/22/24 11/23/24 11/24/24 23:59 23:59 23:59 23:59 Intake Total 237 Output Total 9850 1900 Balance -1950 -1411 Meds/Results Medications: Active Medications Generic Name Dose Route Start Last Admin Trade Name Freq PRN Reason Stop Dose Admin Acetaminophen 650 mg 11/23/24 21:59 Acetaminophen 325 Mg Tablet PO Q6H PRN PAIN RATED 1-3/FEVER Apixaban 5 mg 11/23/24 22:00 11/24/24 09:17 Apixaban 5 Mg Tablet PO 5 mg Q12HR JEANE Administration Bumetanide 1 mg 11/23/24 22:00 11/24/24 09:19 Bumetanide Inj 1 Mg/4 Ml Vial IV PUSH 1 mg BID JEANE Administration Buspirone HCl 15 mg 11/23/24 22:00 11/24/24 09:16 Buspirone Hcl 5 Mg Tablet PO 15 mg TID JEANE Administration Dextrose 12.5 gm 11/23/24 21:55 Dextrose 50% 25 Gm/50 Ml Syringe IV PUSH PRN PRN Hypoglycemia Protocol Diltiazem HCl 300 mg 11/24/24 09:00 11/24/24 09:17 Diltiazem Hcl Cd 300 Mg Cap.24hr PO 300 mg QAM JEANE Administration Empagliflozin 10 mg 11/24/24 09:00 11/24/24 09:18 Empagliflozin 10 Mg Tablet PO 10 mg DAILY JEANE Administration Ferrous Sulfate 325 mg 11/24/24 09:00 11/24/24 09:18 Ferrous Sulfate [address] PO 325 mg DAILY JEANE Administration Glucagon 1 mg 11/23/24 21:55 Glucagon For Inj 1 Mg Vial IM PRN PRN Hypoglycemia Protocol Glucose 15 gm 11/23/24 21:55 Glucose Oral Gel 15 Gm Of Glucse In 37.5 Gm Tube PO PRN PRN Hypoglycemia Protocol Dextrose 1,000 mls @ 100 mls/hr 11/23/24 21:55 Dextrose 5% 1,000 Ml IVPB PRN PRN Hypoglycemia Protocol Insulin Aspart 3 - 6 units 11/24/24 08:00 11/24/24 07:58 Insulin Aspart (*Bkc) 100 Units/Ml SUB-Q Not Given TIDWM JEANE Protocol Insulin Aspart 1 - 3 units 11/23/24 22:10 11/23/24 23:04 Insulin Aspart (*Bkc) 100 Units/Ml SUB-Q Not Given HS JEANE Protocol Lamotrigine 100 mg 11/24/24 09:00 11/24/24 09:15 Lamotrigine 100 Mg Tablet PO 100 mg DAILY JEANE Administration Levothyroxine Sodium 75 mcg 11/24/24 06:30 11/24/24 06:14 Levothyroxine Sodium 75 Mcg Tablet PO 75 mcg DAILY@0630 JEANE Administration Metoprolol Tartrate 12.5 mg 11/23/24 22:00 11/24/24 09:16 Metoprolol Tartrate 12.5 Mg Tablet PO 12.5 mg BID JEANE Administration Miscellaneous Information 1 each 11/23/24 22:09 Central Supply Item XX 11/24/24 22:08 PRN PRN Informational Multivitamins Therapeutic 1 tablet 11/24/24 09:00 11/24/24 09:18 Multivitamins Therapeutic Tab (*Bkc) PO 1 tablet DAILY JEANE Administration Pantoprazole Sodium 40 mg 11/23/24 22:00 11/24/24 09:18 Pantoprazole 40 Mg Tablet PO 40 mg BID JEANE Administration Paroxetine HCl 10 mg 11/24/24 09:00 11/24/24 09:17 Paroxetine 10 Mg Tablet PO 10 mg QAM JEANE Administration Perflutren Lipid Microsphere 0 ml 11/23/24 21:55 Perflutren Lipid Microspheres 1.5 Ml Vial Diluted To 10 Ml Total Volume IV PUSH 11/26/24 21:55 ONCE PRN adequate visualization Protocol Potassium Chloride 40 meq 11/24/24 09:00 11/24/24 09:16 Potassium Chloride 20 Meq Er Tablet PO 40 meq DAILY JEANE Administration Quetiapine Fumarate 200 mg 11/23/24 22:10 11/23/24 22:50 Quetiapine Fumarate 100 Mg Tablet PO 200 mg HS JEANE Administration Spironolactone 25 mg 11/24/24 09:00 11/24/24 09:19 Spironolactone 25 Mg Tablet PO 25 mg DAILY JEANE Administration Sucralfate 1 gm 11/24/24 09:00 11/24/24 09:15 Sucralfate 1 Gm Tablet PO 1 gm DAILY JEANE Administration Trazodone HCl 50 mg 11/23/24 21:59 Trazodone Hcl 50 Mg Tablet PO QHS PRN insomnia Radiology Results: ITS Impressions Chest X-Ray 11/23/24 15:12 IMPRESSION: Cardiomegaly with cardiac decompensation and pulmonary edema. Superimposed pneumonitis cannot be excluded. Clinical correlation advised. Labs Labs: Laboratory Results - last 24 hr 11/23/24 11/23/24 11/24/24 15:09 23:02 05:45 WBC 7.2 6.3 RBC 4.25 3.95 L Hgb 11.2 L 10.6 L Hct 36.8 L 35.5 L MCV 86.6 89.9 MCH 26.4 26.8 MCHC 30.4 L 29.9 L RDW 15.3 H 15.1 H Plt Count 183 179 MPV 9.5 9.7 Immature Gran % (Auto) 0.3 Neut % (Auto) 75.0 H Lymph % (Auto) 15.9 L [place] % (Auto) 6.6 Eos % (Auto) 1.8 Baso % (Auto) 0.4 Lymph # (Auto) 1.14 [place] # (Auto) 0.5 Eos # (Auto) 0.1 Baso # (Auto) 0.0 Abs Immat Gran (auto) 0.02 Absolute Neuts (auto) 5.4 Absolute Nucleated RBC 0.000 Nucleated RBC % 0.0 Sodium 138 139 Potassium 3.9 3.8 Chloride 101 101 Carbon Dioxide 30 33 H Anion Gap 7 5 BUN 22 H D 22 H Creatinine 1.38 H 1.51 H Estim Creat Clear Calc 75 69 Estimated GFR 40 L 36 L Glucose 129 H 133 H POC Capillary Glucose 133 H Calcium 8.7 8.3 L Magnesium 2.4 H NT-Pro-B Natriuret Pep 1020 H TSH (Reflex) 11/24/24 11/24/24 07:32 08:50 WBC RBC Hgb Hct MCV MCH MCHC RDW Plt Count MPV Immature Gran % (Auto) Neut % (Auto) Lymph % (Auto) [place] % (Auto) Eos % (Auto) Baso % (Auto) Lymph # (Auto) [place] # (Auto) Eos # (Auto) Baso # (Auto) Abs Immat Gran (auto) Absolute Neuts (auto) Absolute Nucleated RBC Nucleated RBC % Sodium Potassium Chloride Carbon Dioxide Anion Gap BUN Creatinine Estim Creat Clear Calc Estimated GFR Glucose POC Capillary Glucose 125 H Calcium Magnesium NT-Pro-B Natriuret Pep TSH (Reflex) 2.920
[2024-11-24 11:55] LABS: Glucose Point of Care 143 mg/dl (65-105)
[2024-11-24] MEDS: PERFLUTREN LIPID MICROSPHERES 1.5 ML VIAL DILUTED TO 10 ML TOTAL VOLUME IV PUSH (13:50)
--- NOTE | 2024-11-24 14:44 | IVDEFINITY ---
Prior to administration of IV Definity the patient was educated on the risks and benefits of the imaging enhancing agent including potential adverse side effects. The patient verbalized understanding. Allergies were verified. No exclusion criteria were identified and at least one of the following inclusion criteria were met: 1) physician request, 2) patient technically difficult to image (per the [place] [employer] Echocardi[employer] guidelines of two or more segments not discernable within the apical view), or 3) questionable left ventricular function. ?
[2024-11-24 16:28] LABS: Glucose Point of Care 131 mg/dl (65-105)
[2024-11-24 20:29] LABS: Glucose Point of Care 139 mg/dl (65-105)
[2024-11-24] MEDS: QUEtiapine FUMARATE 100 MG TABLET 200 MG PO (20:46)
--- NOTE | 2024-11-24 21:55 | ECHO_ITS ---
Patient Info Name: Peg Nicole Age: 49 years : 1975 Gender: Female Ht: 64 in Wt: 424 lbs BSA: 3.09 m2 HR: 72 bpm BP: 123 / 51 mmHg Technical Quality: Fair Exam Date: 11/24/2024 1:32 PM Exam Location: Echo Lab Patient Status: Inpatient Admit Date: 11/24/2024 Staff Ordering Physician: Gerda Boyle PA-C Stripper Shovel Operator: Yoselyn Gee RDCS Attending Provider: Jie Cervantes MD Referring Physician: [place] HERRERA; Exam Type: CA echo dop color flow w con Study Info Indications - A-fib - CHF Complete two-dimensional, color flow and Doppler transthoracic echocardiogram is performed with contrast to opacify the left ventricle and to improve the deliniation of the left ventricle endocardial borders. Contrast/Agitated Saline Contrast/Ag. Saline: Definity Amount: 2.00 ml Existing IV Access: Yes IV Access Condition: patent with no signs of infiltration Summary 1. This was a technically difficult study with poorly visualized views. 2. In the limited views, the left ventricle is dilated with preserved systolic function. 3. In the limited views, the right ventricle is dilated with mildly reduced systolic function. Left Ventricle The left ventricle is moderately dilated measuring 5.9 cm in diastole. The left ventricular systolic function overall appears normal. Right Ventricle The right ventricle is mildly dilated with mildly reduced systolic function. Left Atria The left atrium is mildly dilated. Right Atria The right atrium is not well visualized. Atrial Septum The atrial septum is not well visualized. Aortic Valve The aortic valve is not well visualized. Echo gradients does not suggest stenosis. Pulmonic Valve The pulmonic valve is not well visualized. There is no color Doppler evidence of pulmonic valve regurgitation. Mitral Valve The mitral valve leaflets are opening well. There is mild mitral regurgitation. Tricuspid Valve The tricuspid valve is not well visualized. There is mild tricuspid regurgitation. Pericardium/Pleural The pericardium is not well visualized. Inferior Vena Cava Dilated inferior vena cava with <50% collapse upon inspiration consistent with significantly elevated right atrial pressure, 15 mmHg. Aorta The aortic root at the level of the sinus of Valsalva measures 2.7 cm in diameter. Left Ventricular Outflow Tract Name Value Normal LVOT 2D LVOT Diameter 2.18 cm LVOT Doppler LVOT Peak Gradient 5 mmHg LVOT Mean Gradient 4 mmHg LVOT VTI 30.37 cm LVOT VTI/AV VTI Ratio 0.71 LVOT Stroke Volume 113.53 ml LVOT CO 20.66 l/min LVOT CI 6.69 L/min/m2 Pulmonic Valve Name Value Normal PV Doppler PV Peak Gradient 8 mmHg Mitral Valve Name Value Normal MV Doppler MV Decel Sanders 684.11 cm/s2 MV PHT 0 s MV Area (PHT) 3.62 cm2 4.00-5.00 MV Diastolic Function MV E Peak Velocity 143.50 cm/s MV A Peak Velocity 2.90 cm/s MV E/A 49.48 MV Decel Time 0 s MV Annular TDI MV E/e' (Septal) 12.62 <=8.00 MV E/e' (Lateral) 10.76 <=8.00 MV E/e' (Average) 11.69 Tricuspid Valve Name Value Normal TV Regurgitation Doppler TR Peak Velocity 364.43 cm/s TR Peak Gradient 53 mmHg Estimated PAP/RSVP RA Pressure 15 mmHg <=5 PA Systolic Pressure 68 mmHg <36 RV Systolic Pressure 68 mmHg <36 Aorta Name Value Normal Ascending Aorta Ao Root Diameter (MM) 3.03 cm Ao Root Diam Index (MM) 0.98 cm/m2 Aortic Valve Name Value Normal AV Doppler AV Peak Velocity 192.01 cm/s AV Peak Gradient 11 mmHg AV Mean Gradient 7 mmHg AV VTI 42.92 cm AV Area (Cont Eq VTI) 2.65 cm2 >=3.00 AV Area (Cont Eq Ebenezer) 2.56 cm2 AV Regurgitation 2D LVOT Area 3.74 cm2 Ventricles Name Value Normal LV Dimensions 2D/MM IVS Diastolic Thickness (2D) 0.97 cm 0.60-1.00 LVID Diastole (2D) 5.94 cm 3.80-5.20 LVIW Diastolic Thickness (2D) 1.17 cm 0.60-0.90 LVID Systole (2D) 3.72 cm 2.20-3.50 LVOT Diameter 2.18 cm LV Mass (2D Cubed) 266.35 g 67.00-162.00 LV Mass Index (2D Cubed) 0.01 g/cm2 0.00-0.01 Relative Wall Thickness (2D) 0.39 LV Fractional Shortening/Ejection Fraction 2D/MM LV Fractional Shortening (2D) 37 % 27-45 LV EF (2D Teichphyllisz) 67 % 54-74 LV Diastolic Volume (4C MOD) 218.03 ml LV EF (4C MOD) 62 % LV Diastolic Volume (2C MOD) 178.48 ml LV EF (2C MOD) 80 % LV Diastolic Volume (BP MOD) 213.23 ml 46.00-106.00 LV Diastolic Volume Index (BP MOD) 0.07 l/m2 0.03-0.06 LV Systolic Volume (BP MOD) 57.97 ml 14.00-42.00 LV Systolic Volume Index (BP MOD) 0.02 l/m2 0.01-0.02 LV EF (BP MOD) 73 % 54-74 LV Diastolic Length (4C) 10.24 cm LV Systolic Length (4C) 8.79 cm LV Stroke Volume (4C MOD) 134.98 ml RV Dimensions 2D/MM RVID Diastole (2D) 5.00 cm 2.50-3.50 Atria Name Value Normal LA Dimensions LA Dimension (MM) 4.68 cm 2.70-3.80 LA Volume (4C A-L) 122.45 ml LA Volume (BP A-L) 96.87 ml Report Signatures
[2024-11-25 06:00] VITALS: BP 129/62; PULSE 82; RESP 18; TEMP 36.3; O2SAT 93
[2024-11-25] MEDS: LEVOTHYROXINE SODIUM 75 MCG TABLET PO (06:35)
[2024-11-25 08:03] LABS: Glucose Point of Care 118 mg/dl (65-105)
[2024-11-25] MEDS: SUCRALFATE 1 GM TABLET PO (08:42)
[2024-11-25 08:43] VITALS: PULSE 88
[2024-11-25] MEDS: dilTIAZem HCL CD 300 MG CAP.24HR PO (08:43)
[2024-11-25] MEDS: MULTIVITAMINS THERAPEUTIC TAB (*BKC) 1 TABLET PO (08:43)
[2024-11-25] MEDS: APIXABAN 5 MG TABLET PO ×2 (08:43→21:54)
[2024-11-25] MEDS: busPIRone HCL 5 MG TABLET 15 MG PO ×3 (08:43→17:23)
[2024-11-25] MEDS: EMPAGLIFLOZIN 10 MG TABLET PO (08:43)
[2024-11-25] MEDS: METOPROLOL TARTRATE 12.5 MG TABLET PO ×2 (08:43→17:23)
[2024-11-25] MEDS: PANTOPRAZOLE 40 MG TABLET PO ×2 (08:43→17:23)
[2024-11-25] MEDS: POTASSIUM CHLORIDE 20 MEQ ER TABLET 40 MEQ PO (08:43)
[2024-11-25] MEDS: PARoxetine 10 MG TABLET PO (08:43)
[2024-11-25] MEDS: BUMETANIDE INJ 1 MG/4 ML VIAL IV PUSH ×2 (08:43→17:23)
[2024-11-25] MEDS: SPIRONOLACTONE 25 MG TABLET PO (08:43)
[2024-11-25] MEDS: lamoTRIgine 100 MG TABLET PO (08:43)
[2024-11-25] MEDS: FERROUS SULFATE 325 MG TABLET DR PO (08:43)
[2024-11-25 11:53] LABS: Glucose Point of Care 164 mg/dl (65-105)
[2024-11-25 12:46] VITALS: O2SAT 93
[2024-11-25 13:32] VITALS: BP 127/72; PULSE 81; RESP 18; TEMP 36.2; O2SAT 97
--- NOTE | 2024-11-25 15:30 | P.PNIM_ITS ---
Progress Note: A&P Assessment and Plan (1) Volume overload: Code(s): E87.70 - Fluid overload, unspecified Status: Acute (2) Intertrigo: Code(s): L30.4 - Erythema intertrigo Status: Acute (3) Heart failure with preserved ejection fraction: Code(s): I50.30 - Unspecified diastolic (congestive) heart failure Status: Acute (4) Chronic kidney disease, stage 3: Code(s): N18.30 - Chronic kidney disease, stage 3 unspecified Status: Acute (5) Paroxysmal atrial fibrillation: Code(s): I48.0 - Paroxysmal atrial fibrillation Status: Acute (6) Chronic anticoagulation: Code(s): Z79.01 - ocean transportation intermediary (current) use of 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 Status: Acute (7) Essential hypertension: Code(s): I10 - Essential (primary) hypertension Status: Acute (8) Type 2 diabetes mellitus: Code(s): E11.9 - Type 2 diabetes mellitus without complications Status: Acute (9) Hypothyroidism: Code(s): E03.9 - Hypothyroidism, unspecified Status: Acute (10) Morbid obesity: Code(s): E66.01 - Morbid (severe) obesity due to excess calories Status: Acute (11) Obstructive sleep apnea treated with BiPAP: Code(s): G47.33 - Obstructive sleep apnea (adult) (pediatric) Status: Acute Plan Acute chronic heart failure, systolic Presented increasing lower extremity edema and increased abdominal girth over the past 7 to 10 days noted improvement Continue Bumex 1 mg b.i.d. IV push Monitor input output, renal function, and electrolytes. Echocardiogram showed preserved ejection fraction Paroxysmal AFib Normal sinus rhythm. Continue apixaban for stroke prophylaxis. CKD stage 3 Creatinine 1.51 today, slightly elevated, within the baseline Follow-up BMP Blood pressures monitored. Type 2 diabetes Initiate sliding scale insulin, Accu-Cheks, and hypoglycemic protocol. Check hemoglobin A1c and TSH. ZULEIKA BiPAP will be provided for the patient to use while hospitalized. The patient's toenails are long and have fungal infection She is unable to get out of the home for appointments. 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 Review of Systems Review of Systems: 12 systems were reviewed and are negativ e except for as per HPI. Exam Narrative: General: Nontoxic-appearing female sitting up in bed in no acute distress. Weight: 194.5 kg. BMI: 73.6. HEENT: PERRL, EOMI. Sclera anicteric. Oral mucosa moist. Oropharynx is crowded. Neck: Supple. Exam limited due to neck circumference. Respiratory: Respirations are nonlabored she is speaking in full sentences. Lung sounds are diminished due to body habitus with faint crackles at the bases. Cardiovascular: Regular rate and rhythm with S1-S2. Gastrointestinal: Abdomen is morbidly obese and nontender with positive bowel sounds. Skin: Scaly and patchy rashes in multiple skin folds with weeping coming from the wounds on the lower abdomen. Extremities: No cyanosis or clubbing. Legs are large with chronic lymphedema, right greater than left. Neurological: Alert. Cranial nerves 2-12 are grossly intact. No gross focal deficits to casual conversation. Psychiatric: Pleasant and cooperative with normal mood and affect. Judgment and insight intact. Objective Data Vital Signs Vital Signs: Vital Signs - 24 hr 11/24/24 16:58 11/24/24 20:00 11/24/24 22:00 Temperature 98.7 F Pulse Rate 89 82 Respiratory Rate 18 Blood Pressure 145/68 H Pulse Oximetry 94 Oxygen Delivery Room Air 11/24/24 22:15 11/25/24 06:00 11/25/24 08:43 Temperature 97.4 F L Pulse Rate 82 88 Respiratory Rate 18 Blood Pressure 129/62 Pulse Oximetry 93 Oxygen Delivery BiPAP 11/25/24 08:43 11/25/24 12:46 11/25/24 13:32 Temperature 97.1 F L Pulse Rate 81 Respiratory Rate 18 Blood Pressure 127/72 Pulse Oximetry 93 97 Oxygen Delivery Room Air Room Air Intake/Output Intake/Output: Intake & Output 11/22/24 11/23/24 11/24/24 11/25/24 23:59 23:59 23:59 23:59 Intake Total 1717 820 Output Total 8641 2600 Balance -1949 - 820 Meds/Results Medications: Active Medications Generic Name Dose Route Start Last Admin Trade Name Freq PRN Reason Stop Dose Admin Acetaminophen 650 mg 11/23/24 21:59 Acetaminophen 325 Mg Tablet PO Q6H PRN PAIN RATED 1-3/FEVER Apixaban 5 mg 11/23/24 22:00 11/25/24 08:43 Apixaban 5 Mg Tablet PO 5 mg Q12HR JEANE Administration Bumetanide 1 mg 11/23/24 22:00 11/25/24 08:43 Bumetanide Inj 1 Mg/4 Ml Vial IV PUSH 1 mg BID JEANE Administration Buspirone HCl 15 mg 11/23/24 22:00 11/25/24 14:05 Buspirone Hcl 5 Mg Tablet PO 15 mg TID JEANE Administration Dextrose 12.5 gm 11/23/24 21:55 Dextrose 50% 25 Gm/50 Ml Syringe IV PUSH PRN PRN Hypoglycemia Protocol Diltiazem HCl 300 mg 11/24/24 09:00 11/25/24 08:43 Diltiazem Hcl Cd 300 Mg Cap.24hr PO 300 mg QAM JEANE Administration Empagliflozin 10 mg 11/24/24 09:00 11/25/24 08:43 Empagliflozin 10 Mg Tablet PO 10 mg DAILY JEANE Administration Ferrous Sulfate 325 mg 11/24/24 09:00 11/25/24 08:43 Ferrous Sulfate [address] PO 325 mg DAILY JEANE Administration Glucagon 1 mg 11/23/24 21:55 Glucagon For Inj 1 Mg Vial IM PRN PRN Hypoglycemia Protocol Glucose 15 gm 11/23/24 21:55 Glucose Oral Gel 15 Gm Of Glucse In 37.5 Gm Tube PO PRN PRN Hypoglycemia Protocol Dextrose 1,000 mls @ 100 mls/hr 11/23/24 21:55 Dextrose 5% 1,000 Ml IVPB PRN PRN Hypoglycemia Protocol Insulin Aspart 3 - 6 units 11/24/24 08:00 11/25/24 12:05 Insulin Aspart (*Bkc) 100 Units/Ml SUB-Q Not Given TIDWM [facility] Protocol Insulin Aspart 1 - 3 units 11/23/24 22:10 11/24/24 20:35 Insulin Aspart (*Bkc) 100 Units/Ml SUB-Q Not Given HS [facility] Protocol Lamotrigine 100 mg 11/24/24 09:00 11/25/24 08:43 Lamotrigine 100 Mg Tablet PO 100 mg DAILY JEANE Administration Levothyroxine Sodium 75 mcg 11/24/24 06:30 11/25/24 06:35 Levothyroxine Sodium 75 Mcg Tablet PO 75 mcg DAILY@0630 JEANE Administration Metoprolol Tartrate 12.5 mg 11/23/24 22:00 11/25/24 08:43 Metoprolol Tartrate 12.5 Mg Tablet PO 12.5 mg BID JEANE Administration Multivitamins Therapeutic 1 tablet 11/24/24 09:00 11/25/24 08:43 Multivitamins Therapeutic Tab (*Bkc) PO 1 tablet DAILY JEANE Administration Pantoprazole Sodium 40 mg 11/23/24 22:00 11/25/24 08:43 Pantoprazole 40 Mg Tablet PO 40 mg BID JEANE Administration Paroxetine HCl 10 mg 11/24/24 09:00 11/25/24 08:43 Paroxetine 10 Mg Tablet PO 10 mg QAM JEANE Administration Potassium Chloride 40 meq 11/24/24 09:00 11/25/24 08:43 Potassium Chloride 20 Meq Er Tablet PO 40 meq DAILY JEANE Administration Quetiapine Fumarate 200 mg 11/23/24 22:10 11/24/24 20:46 Quetiapine Fumarate 100 Mg Tablet PO 200 mg HS JEANE Administration Spironolactone 25 mg 11/24/24 09:00 11/25/24 08:43 Spironolactone 25 Mg Tablet PO 25 mg DAILY JEANE Administration Sucralfate 1 gm 11/24/24 09:00 11/25/24 08:42 Sucralfate 1 Gm Tablet PO 1 gm DAILY JEANE Administration Trazodone HCl 50 mg 11/23/24 21:59 Trazodone Hcl 50 Mg Tablet PO QHS PRN insomnia Radiology Results: ITS Impressions Chest X-Ray 11/23/24 15:12 IMPRESSION: Cardiomegaly with cardiac decompensation and pulmonary edema. Superimposed pneumonitis cannot be excluded. Clinical correlation advised. Labs Labs: Laboratory Results - last 24 hr 11/24/24 11/24/24 11/25/24 16:25 20:25 07:44 POC Capillary Glucose 131 H 139 H 118 H 11/25/24 11:49 POC Capillary Glucose 164 H Quality VTE Prophylaxis VTE prophylaxis: pharmacologic ordered (on apixaban)
[2024-11-25 16:37] LABS: Glucose Point of Care 148 mg/dl (65-105)
[2024-11-25 20:37] LABS: Glucose Point of Care 165 mg/dl (65-105)
[2024-11-25] MEDS: QUEtiapine FUMARATE 100 MG TABLET 200 MG PO (21:54)
[2024-11-25 21:56] VITALS: BP 124/62; PULSE 80; RESP 20; TEMP 37.1; O2SAT 93
[2024-11-25 23:00] VITALS: RESP 17
[2024-11-26] VITALS (7 sets, daily range): BP systolic 102–128; BP diastolic 51–60; PULSE 63–84; RESP 18–19; TEMP 36.6–36.9; O2SAT 93–96
[2024-11-26] MEDS: LEVOTHYROXINE SODIUM 75 MCG TABLET PO (05:39)
[2024-11-26 06:28] LABS: Basophils Absolute Auto 0.1 K/mm3 (0.0-0.1); Basophils Percent Auto 0.7 % (0.2-1.2); Eosinophils Absolute Auto 0.2 K/mm3 (0-0.3); Eosinophils Percent Auto 2.8 % (0-4.4); Hematocrit 36.6 % (37.0-47.0); Hemoglobin 10.8 g/dL (12.0-15.0); Immature Granulocyte Absolute 0.03 K/mm3 (0.00-0.031); Immature Granulocyte Percent A 0.4 % (0-0.5); Lymphocytes Absolute Auto 1.53 K/mm3 (0.9-3.2); Lymphocytes Percent Auto 21.7 % (18.3-44.2); Mean Corpuscular HGB Conc 29.5 g/dl (32-36); Mean Corpuscular Hemoglobin 26.2 pg (26-34); Mean Corpuscular Volume 88.6 fl (80-100); Mean Platelet Volume 9.7 fl (7.4-10.4); Monocytes Absolute Auto 0.6 K/mm3 (0.1-0.6); Monocytes Percent Auto 8.5 % (2.6-8.5); Neutrophils Absolute Auto 4.6 K/mm3 (1.3-6.7); Neutrophils Percent Auto 65.9 % (45.5-73.1); Platelet Count Result 175 k/mm3 (150-375); Red Blood Count 4.13 M/mm3 (4.2-5.4)
[2024-11-26 06:42] LABS: Alanine Aminotransferase 17 U/L (6-35); Albumin Level 3.4 g/dL (3.5-5.1); Alkaline Phosphatase 96 U/L (38-126); Anion Gap 7 mmol/L (4-12); Aspartate Amino Transferase 22 U/L (14-36); Bilirubin,Total 0.7 mg/dL (0.2-1.3); Blood Urea Nitrogen 24 mg/dL (7-17); Calcium 8.6 mg/dL (8.4-10.2); Carbon Dioxide 29 mmol/L (22-30); Chloride 101 mmol/L (98-107); Estimated CRCL calculation 67 ml/min; Estimated Glomerular Filt Rate 36; Glucose 126 mg/dL (65-110); Magnesium 2.4 mg/dL (1.6-2.3); Potassium 4.1 mmol/L (3.4-5.0); Sodium 137 mmol/L (137-145)
[2024-11-26 08:16] LABS: Glucose Point of Care 125 mg/dl (65-105)
[2024-11-26] MEDS: SPIRONOLACTONE 25 MG TABLET PO (09:34)
[2024-11-26] MEDS: MULTIVITAMINS THERAPEUTIC TAB (*BKC) 1 TABLET PO (09:34)
[2024-11-26] MEDS: BUMETANIDE INJ 1 MG/4 ML VIAL IV PUSH ×2 (09:34→17:46)
[2024-11-26] MEDS: POTASSIUM CHLORIDE 20 MEQ ER TABLET 40 MEQ PO (09:34)
[2024-11-26] MEDS: FERROUS SULFATE 325 MG TABLET DR PO (09:34)
[2024-11-26] MEDS: SUCRALFATE 1 GM TABLET PO (09:34)
[2024-11-26] MEDS: METOPROLOL TARTRATE 12.5 MG TABLET PO ×2 (09:34→17:46)
[2024-11-26] MEDS: PARoxetine 10 MG TABLET PO (09:34)
[2024-11-26] MEDS: PANTOPRAZOLE 40 MG TABLET PO ×2 (09:34→18:00)
[2024-11-26] MEDS: lamoTRIgine 100 MG TABLET PO (09:35)
[2024-11-26] MEDS: dilTIAZem HCL CD 300 MG CAP.24HR PO (09:35)
[2024-11-26] MEDS: APIXABAN 5 MG TABLET PO ×2 (09:35→21:29)
[2024-11-26] MEDS: EMPAGLIFLOZIN 10 MG TABLET PO (09:35)
[2024-11-26] MEDS: busPIRone HCL 5 MG TABLET 15 MG PO ×3 (09:43→17:46)
[2024-11-26 11:55] LABS: Glucose Point of Care 157 mg/dl (65-105)
--- NOTE | 2024-11-26 14:12 | P.DS_ITS ---
DS: Admitting Diagnosis Discharge Date 11/26/24 Admitting Diagnosis SOB DS: Discharge Diagnosis Discharge Diagnosis (1) Acute exacerbation of CHF (congestive heart failure): Code(s): I50.9 - Heart failure, unspecified Status: Acute DS: Summary Hospital Course Hospital Course: 49-year-old morbidly obese female with history of heart failure with preserved ejection fraction, pulmonary hypertension, obesity hypoventilation syndrome, obstructive sleep apnea on BiPAP, tracheostomy in 05/2023, paroxysmal atrial fibrillation on chronic anticoagulation, chronic kidney disease stage 3, hypertension, [id number] type 2 diabetes mellitus, hypothyroidism, lymphedema, depression, and anxiety who presented to the emergency department via EMS with complaints of weeping from legs and abdomen. patient noted her breathing has markedly improved and the weeping on the abdomen markedly improved. wound care was consulted adn was involved on care of her draining abd wall edema. Since patient improved on Bumex 1mg IV bid, i discharged her and changed her home bumex to 1mg Bid and she will follow up with PCP in 3-5 days Referral to cardiology in 1-2 weeks discharged on home health for wound care. Time Spent with Patient Time attestation: Total time spent providing and/or coordinating discharge services: DS: Data Data Completed and Pending Labs on day of discharge: Labs from last 24 hours 11/26/24 11/26/24 11/26/24 11:44 08:08 06:13 WBC 7.0 RBC 4.13 L Hgb 10.8 L Hct 36.6 L MCV 88.6 MCH 26.2 MCHC 29.5 L RDW 15.0 H Plt Count 175 MPV 9.7 Immature Gran % (Auto) 0.4 Neut % (Auto) 65.9 Lymph % (Auto) 21.7 [place] % (Auto) 8.5 Eos % (Auto) 2.8 Baso % (Auto) 0.7 Lymph # (Auto) 1.53 [place] # (Auto) 0.6 Eos # (Auto) 0.2 Baso # (Auto) 0.1 Abs Immat Gran (auto) 0.03 Absolute Neuts (auto) 4.6 Absolute Nucleated RBC 0.000 Nucleated RBC % 0.0 Sodium 137 Potassium 4.1 Chloride 101 Carbon Dioxide 29 Anion Gap 7 BUN 24 H Creatinine 1.52 H Estim Creat Clear Calc 67 Estimated GFR 36 L Glucose 126 H POC Capillary Glucose 157 H 125 H Calcium 8.6 Magnesium 2.4 H Total Bilirubin 0.7 AST 22 ALT 17 Alkaline Phosphatase 96 Total Protein 7.0 Albumin 3.4 L 11/25/24 11/25/24 20:27 16:28 WBC RBC Hgb Hct MCV MCH MCHC RDW Plt Count MPV Immature Gran % (Auto) Neut % (Auto) Lymph % (Auto) [place] % (Auto) Eos % (Auto) Baso % (Auto) Lymph # (Auto) [place] # (Auto) Eos # (Auto) Baso # (Auto) Abs Immat Gran (auto) Absolute Neuts (auto) Absolute Nucleated RBC Nucleated RBC % Sodium Potassium Chloride Carbon Dioxide Anion Gap BUN Creatinine Estim Creat Clear Calc Estimated GFR Glucose POC Capillary Glucose 165 H 148 H Calcium Magnesium Total Bilirubin AST ALT Alkaline Phosphatase Total Protein Albumin Preliminary micro results at discharge 11/23/24 15:09 Anaerobic Culture - Preliminary Abdomen Aerobic Culture - Preliminary Staphylococcus aureus Discharge Plan Discharge Attending physician on discharge: Jie Cervantes Discharging Clinician: Jie Cervantes Patient Disposition: Home with Home Health Service Activity: as tolerated Diet: as tolerated and heart healthy Discharge Instructions: Per Care Coordination: [facility] ([phone]) will call to set up initial visit. Patient Instructions: Antibiotic Form, Apixaban (By mouth) Patient Language: Italian Stand Alone Forms: General Discharge Information Follow-up/Referrals: Laurel Lr MD [Primary Care Provider] - (F/u with PCP in 3-5 days ) Moisés Meade MD [Physician] - (F/u with cardiology in 1-2 weeks) Discharge Medications: Continued miconazole nitrate 2 % powder 1 applic TOPICAL BID Qty: 85 2RF Rx Instructions: APPLY TO ABDOMINAL FOLDS AFTER CLEANSING ferrous sulfate 325 mg (65 mg iron) tablet,delayed release (DR/EC) 325 mg PO DAILY Qty: 100 1RF Eliquis 5 mg tablet 5 mg PO Q12HR Qty: 60 3RF Jardiance 10 mg tablet 10 mg PO DAILY Qty: 90 3RF quetiapine [Seroquel] 100 mg tablet 200 mg PO HS 30 Days Qty: 60 5RF metoprolol tartrate 25 mg tablet 12.5 mg PO BID Qty: 30 3RF diltiazem HCl 300 mg capsule,extended release 24hr 300 mg PO QAM Qty: 30 3RF spironolactone 25 mg tablet 25 mg PO DAILY Qty: 30 3RF pantoprazole 40 mg tablet,delayed release (DR/EC) 40 mg PO BID Qty: 60 6RF levothyroxine 75 mcg tablet 75 mcg PO DAILY Qty: 30 3RF Rx Instructions: TAKE ONE TABLET BY MOUTH DAILY potassium chloride [K-Tab] 20 mEq tablet extended release 40 meq PO DAILY Qty: 60 3RF paroxetine HCl 10 mg tablet 10 mg PO QAM Qty: 30 2RF lamotrigine 100 mg tablet 100 mg PO DAILY Qty: 30 4RF trazodone 50 mg tablet 50 mg PO QHS PRN (Reason: insomnia) Qty: 30 3RF sucralfate 1 gram tablet 1 g PO DAILY Qty: 30 3RF buspirone 15 mg tablet 15 mg PO TID Qty: 90 1RF acetaminophen 325 mg tablet 650 mg PO Q6H PRN (Reason: Pain) Daily Multivitamin 1 tablet PO DAILY Changed bumetanide 2 mg tablet 1 mg PO BID 30 Days Qty: 60 0RF Rx Instructions: Pt states she takes 2mg every day and every other day she takes it BID Date of admission: 11/24/24 10:06 Primary Care Provider: Laurel Lr Admitting Provider: Jie Cervantes Attending physician on admission: Jie Cervantes Condition: Stable
[2024-11-26 17:13] LABS: Glucose Point of Care 120 mg/dl (65-105)
[2024-11-26] MEDS: QUEtiapine FUMARATE 100 MG TABLET 200 MG PO (21:29)
[2024-11-27] VITALS (7 sets, daily range): BP systolic 124–131; BP diastolic 55–63; PULSE 60–93; RESP 18–24; TEMP 36.6–36.9; O2SAT 90–98
[2024-11-27] MEDS: LEVOTHYROXINE SODIUM 75 MCG TABLET PO (05:59)
[2024-11-27 07:21] LABS: Glucose Point of Care 117 mg/dl (65-105)
[2024-11-27] MEDS: dilTIAZem HCL CD 300 MG CAP.24HR PO (09:16)
[2024-11-27] MEDS: POTASSIUM CHLORIDE 20 MEQ ER TABLET 40 MEQ PO (09:16)
[2024-11-27] MEDS: SUCRALFATE 1 GM TABLET PO (09:16)
[2024-11-27] MEDS: METOPROLOL TARTRATE 12.5 MG TABLET PO ×2 (09:17→16:56)
[2024-11-27] MEDS: busPIRone HCL 5 MG TABLET 15 MG PO ×3 (09:18→16:56)
[2024-11-27] MEDS: lamoTRIgine 100 MG TABLET PO (09:19)
[2024-11-27] MEDS: SPIRONOLACTONE 25 MG TABLET PO (09:19)
[2024-11-27] MEDS: PARoxetine 10 MG TABLET PO (09:19)
[2024-11-27] MEDS: FERROUS SULFATE 325 MG TABLET DR PO (09:19)
[2024-11-27] MEDS: PANTOPRAZOLE 40 MG TABLET PO ×2 (09:19→16:56)
[2024-11-27] MEDS: APIXABAN 5 MG TABLET PO ×2 (09:19→21:38)
[2024-11-27] MEDS: MULTIVITAMINS THERAPEUTIC TAB (*BKC) 1 TABLET PO (09:19)
[2024-11-27] MEDS: BUMETANIDE INJ 1 MG/4 ML VIAL IV PUSH ×2 (09:20→16:56)
[2024-11-27] MEDS: EMPAGLIFLOZIN 10 MG TABLET PO (09:20)
--- NOTE | 2024-11-27 10:22 | P.PNIM_ITS ---
Progress Note: A&P Assessment and Plan (1) Acute exacerbation of CHF (congestive heart failure): Code(s): I50.9 - Heart failure, unspecified Status: Acute Plan Acute chronic heart failure, systolic Presented increasing lower extremity edema and increased abdominal girth over the past 7 to 10 days noted improvement Continue Bumex 1 mg b.i.d. IV push Monitor input output, renal function, and electrolytes. Echocardiogram showed preserved ejection fraction Severe Intertriginous Candidiasis Patient has severe candidiasis under abdominal wall folds with bleeding Started on Micafungin continue wound care patient is unable to change wound dressing by herself thus will be hospitalized until bleeding improves or resolves bleeding improving monitor Paroxysmal AFib Normal sinus rhythm. Continue apixaban for stroke prophylaxis. CKD stage 3 Creatinine 1.51 today, slightly elevated, within the baseline Follow-up BMP Blood pressures monitored. Type 2 diabetes Initiate sliding scale insulin, Accu-Cheks, and hypoglycemic protocol. Check hemoglobin A1c and TSH. ZULEIKA BiPAP will be provided for the patient to use while hospitalized. The patient's toenails are long and have fungal infection She is unable to get out of the home for appointments. 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 Exam Narrative: General: Nontoxic-appearing female sitting up in bed in no acute distress. Weight: 194.5 kg. BMI: 73.6. HEENT: PERRL, EOMI. Sclera anicteric. Oral mucosa moist. Oropharynx is crowded. Neck: Supple. Exam limited due to neck circumference. Respiratory: Respirations are nonlabored she is speaking in full sentences. Lung sounds are diminished due to body habitus with faint crackles at the bases. Cardiovascular: Regular rate and rhythm with S1-S2. Gastrointestinal: Abdomen is morbidly obese and nontender with positive bowel sounds. Skin: Scaly and patchy rashes in multiple skin folds with weeping coming from the wounds on the lower abdomen. Extremities: No cyanosis or clubbing. Legs are large with chronic lymphedema, right greater than left. Neurological: Alert. Cranial nerves 2-12 are grossly intact. No gross focal d eficits to casual conversation. Psychiatric: Pleasant and cooperative with normal mood and affect. Judgment and insight intact. Objective Data Vital Signs Vital Signs: Vital Signs - 24 hr 11/26/24 10:31 11/26/24 13:52 11/26/24 14:00 Temperature 97.9 F Pulse Rate 77 Respiratory Rate 18 Blood Pressure 128/51 L Pulse Oximetry 93 Oxygen Delivery Room Air Room Air 11/26/24 17:46 11/26/24 20:00 11/26/24 22:32 Temperature 98.4 F Pulse Rate 77 63 63 Respiratory Rate 19 19 Blood Pressure 102/51 L Pulse Oximetry 96 96 Oxygen Delivery Room Air 11/27/24 05:31 11/27/24 08:00 11/27/24 09:17 Temperature 98.4 F Pulse Rate 78 93 93 Respiratory Rate 18 Blood Pressure 124/63 Pulse Oximetry 90 98 Oxygen Delivery Room Air Intake/Output Intake/Output: Intake & Output 11/24/24 11/25/24 11/26/24 11/27/24 23:59 23:59 23:59 23:59 Intake Total 1717 1060 1820 1340 Output Total 2600 Balance -883 1060 1820 1340 Meds/Results Medications: Active Medications Generic Name Dose Route Start Last Admin Trade Name Freq PRN Reason Stop Dose Admin Acetaminophen 650 mg 11/23/24 21:59 Acetaminophen 325 Mg Tablet PO Q6H PRN PAIN RATED 1-3/FEVER Apixaban 5 mg 11/23/24 22:00 11/27/24 09:19 Apixaban 5 Mg Tablet PO 5 mg Q12HR JEANE Administration Bumetanide 1 mg 11/23/24 22:00 11/27/24 09:20 Bumetanide Inj 1 Mg/4 Ml Vial IV PUSH 1 mg BID JEANE Administration Buspirone HCl 15 mg 11/23/24 22:00 11/27/24 09:18 Buspirone Hcl 5 Mg Tablet PO 15 mg TID JEANE Administration Dextrose 12.5 gm 11/23/24 21:55 Dextrose 50% 25 Gm/50 Ml Syringe IV PUSH PRN PRN Hypoglycemia Protocol Diltiazem HCl 300 mg 11/24/24 09:00 11/27/24 09:16 Diltiazem Hcl Cd 300 Mg Cap.24hr PO 300 mg QAM JEANE Administration Empagliflozin 10 mg 11/24/24 09:00 11/27/24 09:20 Empagliflozin 10 Mg Tablet PO 10 mg DAILY JEANE Administration Ferrous Sulfate 325 mg 11/24/24 09:00 11/27/24 09:19 Ferrous Sulfate [address] PO 325 mg DAILY JEANE Administration Glucagon 1 mg 11/23/24 21:55 Glucagon For Inj 1 Mg Vial IM PRN PRN Hypoglycemia Protocol Glucose 15 gm 11/23/24 21:55 Glucose Oral Gel 15 Gm Of Glucse In 37.5 Gm Tube PO PRN PRN Hypoglycemia Protocol Dextrose 1,000 mls @ 100 mls/hr 11/23/24 21:55 Dextrose 5% 1,000 Ml IVPB PRN PRN Hypoglycemia Protocol Fluconazole/Dextrose 100 mg in 50 mls @ 50 mls/hr 11/27/24 10:20 Diflucan 100 Mg/Nacl 50 Ml IVPB DAILY JEANE Insulin Aspart 3 - 6 units 11/24/24 08:00 11/27/24 09:19 Insulin Aspart (*Bkc) 100 Units/Ml SUB-Q Not Given TIDWM [facility] Protocol Insulin Aspart 1 - 3 units 11/23/24 22:10 11/26/24 21:28 Insulin Aspart (*Bkc) 100 Units/Ml SUB-Q Not Given HS [facility] Protocol Lamotrigine 100 mg 11/24/24 09:00 11/27/24 09:19 Lamotrigine 100 Mg Tablet PO 100 mg DAILY JEANE Administration Levothyroxine Sodium 75 mcg 11/24/24 06:30 11/27/24 05:59 Levothyroxine Sodium 75 Mcg Tablet PO 75 mcg DAILY@0630 JEANE Administration Metoprolol Tartrate 12.5 mg 11/23/24 22:00 11/27/24 09:17 Metoprolol Tartrate 12.5 Mg Tablet PO 12.5 mg BID JEANE Administration Multivitamins Therapeutic 1 tablet 11/24/24 09:00 11/27/24 09:19 Multivitamins Therapeutic Tab (*Bkc) PO 1 tablet DAILY JEANE Administration Pantoprazole Sodium 40 mg 11/23/24 22:00 11/27/24 09:19 Pantoprazole 40 Mg Tablet PO 40 mg BID JEANE Administration Paroxetine HCl 10 mg 11/24/24 09:00 11/27/24 09:19 Paroxetine 10 Mg Tablet PO 10 mg QAM JEANE Administration Potassium Chloride 40 meq 11/24/24 09:00 11/27/24 09:16 Potassium Chloride 20 Meq Er Tablet PO 40 meq DAILY JEANE Administration Quetiapine Fumarate 100 mg 11/27/24 21:00 Quetiapine Fumarate 100 Mg Tablet PO HS JEANE Spironolactone 25 mg 11/24/24 09:00 11/27/24 09:19 Spironolactone 25 Mg Tablet PO 25 mg DAILY JEANE Administration Sucralfate 1 gm 11/24/24 09:00 11/27/24 09:16 Sucralfate 1 Gm Tablet PO 1 gm DAILY JEANE Administration Trazodone HCl 25 mg 11/27/24 10:21 Trazodone Hcl 25 Mg Tablet PO QHS PRN insomnia Radiology Results: ITS Impressions Chest X-Ray 11/23/24 15:12 IMPRESSION: Cardiomegaly with cardiac decompensation and pulmonary edema. Superimposed pneumonitis cannot be excluded. Clinical correlation advised. Labs Labs: Laboratory Results - last 24 hr 11/26/24 11/26/24 11/27/24 11:44 16:55 07:16 POC Capillary Glucose 157 H 120 H 117 H Quality VTE Prophylaxis VTE prophylaxis: pharmacologic ordered (on apixaban)
[2024-11-27 11:20] LABS: Glucose Point of Care 133 mg/dl (65-105)
[2024-11-27] MEDS: MICAFUNGIN SODIUM 100 MG in SODIUM CHLORIDE 0.9% IV 100 ML IVPB (11:40)
[2024-11-27 16:08] LABS: Glucose Point of Care 171 mg/dl (65-105)
[2024-11-27 21:00] LABS: Glucose Point of Care 136 mg/dl (65-105)
[2024-11-27] MEDS: QUEtiapine FUMARATE 100 MG TABLET 200 MG PO (21:37)
[2024-11-28] VITALS (8 sets, daily range): BP systolic 114–120; BP diastolic 51–63; PULSE 60–90; RESP 13–22; TEMP 36.2–36.8; O2SAT 94–98
[2024-11-28] MEDS: LEVOTHYROXINE SODIUM 75 MCG TABLET PO (05:29)
[2024-11-28 08:12] LABS: Glucose Point of Care 117 mg/dl (65-105)
[2024-11-28] MEDS: SUCRALFATE 1 GM TABLET PO (09:46)
[2024-11-28] MEDS: APIXABAN 5 MG TABLET PO ×2 (09:46→20:46)
[2024-11-28] MEDS: METOPROLOL TARTRATE 12.5 MG TABLET PO ×2 (09:46→16:57)
[2024-11-28] MEDS: EMPAGLIFLOZIN 10 MG TABLET PO (09:46)
[2024-11-28] MEDS: PARoxetine 10 MG TABLET PO (09:46)
[2024-11-28] MEDS: FERROUS SULFATE 325 MG TABLET DR PO (09:46)
[2024-11-28] MEDS: BUMETANIDE INJ 1 MG/4 ML VIAL IV PUSH ×2 (09:46→16:57)
[2024-11-28] MEDS: lamoTRIgine 100 MG TABLET PO (09:46)
[2024-11-28] MEDS: busPIRone HCL 5 MG TABLET 15 MG PO ×3 (09:46→16:59)
[2024-11-28] MEDS: SPIRONOLACTONE 25 MG TABLET PO (09:46)
[2024-11-28] MEDS: dilTIAZem HCL CD 300 MG CAP.24HR PO (09:46)
[2024-11-28] MEDS: MULTIVITAMINS THERAPEUTIC TAB (*BKC) 1 TABLET PO (09:46)
[2024-11-28] MEDS: POTASSIUM CHLORIDE 20 MEQ ER TABLET 40 MEQ PO (09:47)
[2024-11-28] MEDS: MICAFUNGIN SODIUM 100 MG in SODIUM CHLORIDE 0.9% IV 100 ML IVPB (09:48)
[2024-11-28] MEDS: PANTOPRAZOLE 40 MG TABLET PO ×2 (09:57→16:59)
--- NOTE | 2024-11-28 11:47 | P.PNIM_ITS ---
Progress Note: A&P Assessment and Plan (1) Acute exacerbation of CHF (congestive heart failure): Code(s): I50.9 - Heart failure, unspecified Status: Acute Plan Acute chronic heart failure, systolic Presented increasing lower extremity edema and increased abdominal girth over the past 7 to 10 days noted improvement Continue Bumex 1 mg b.i.d. IV push Monitor input output, renal function, and electrolytes. Echocardiogram showed preserved ejection fraction Severe Intertriginous Candidiasis Patient has severe candidiasis under abdominal wall folds with bleeding Day 2/ on Micafungin continue wound care patient is unable to change wound dressing by herself thus will be hospitalized until bleeding improves or resolves bleeding improving monitor Paroxysmal AFib Normal sinus rhythm. Continue apixaban for stroke prophylaxis. CKD stage 3 Creatinine 1.51 today, slightly elevated, within the baseline Follow-up BMP Blood pressures monitored. Type 2 diabetes Initiate sliding scale insulin, Accu-Cheks, and hypoglycemic protocol. Check hemoglobin A1c and TSH. ZULEIKA BiPAP will be provided for the patient to use while hospitalized. The patient's toenails are long and have fungal infection She is unable to get out of the home for appointments. Consult ward maid DVT prophylaxis on Eliquis Awaiting bleeding to resolve prior to discharge as patient is not able to change wound dressing Subjective Date/time seen: 11/28/24 11:47 Interval history: Comfortable at bedside On Fluconazole IV 100mg daily Review of Systems Review of Systems: 12 systems were reviewed and are negativ e except for as per HPI. Exam Narrative: General: Nontoxic-appearing female sitting up in bed in no acute distress. Weight: 194.5 kg. BMI: 73.6. HEENT: PERRL, EOMI. Sclera anicteric. Oral mucosa moist. Oropharynx is crowded. Neck: Supple. Exam limited due to neck circumference. Respiratory: Respirations are nonlabored she is speaking in full sentences. Lung sounds are diminished due to body habitus with faint crackles at the bases. Cardiovascular: Regular rate and rhythm with S1-S2. Gastrointestinal: Abdomen is morbidly obese and nontender with positive bowel sounds. Skin: Scaly and patchy rashes in multiple skin folds with weeping coming from the wounds on the lower abdomen. Extremities: No cyanosis or clubbing. Legs are large with chronic lymphedema, right greater than left. Neurological: Alert. Cranial nerves 2-12 are grossly intact. No gross focal deficits to casual conversation. Psychiatric: Pleasant and cooperative with normal mood and affect. Judgment and insight intact. Objective Data Vital Signs Vital Signs: Vital Signs - 24 hr 11/27/24 13:42 11/27/24 16:56 11/27/24 21:11 Temperature 97.8 F 98.1 F Pulse Rate 61 92 67 Respiratory Rate 24 H 22 H Blood Pressure 124/55 L 131/56 L Pulse Oximetry 96 93 Oxygen Delivery 11/27/24 22:03 11/28/24 01:35 11/28/24 05:31 Temperature 98.3 F Pulse Rate 60 62 61 Respiratory Rate 20 22 H 20 Blood Pressure 120/58 L Pulse Oximetry 94 94 94 Oxygen Delivery BiPAP BiPAP 11/28/24 09:46 Temperature Pulse Rate 90 Respiratory Rate Blood Pressure Pulse Oximetry Oxygen Delivery Intake/Output Intake/Output: Intake & Output 11/25/24 11/26/24 11/27/24 11/28/24 23:59 23:59 23:59 23:59 Intake Total 1060 1820 2710 540 Balance 1060 1820 2710 540 Meds/Results Medications: Active Medications Generic Name Dose Route Start Last Admin Trade Name Freq PRN Reason Stop Dose Admin Acetaminophen 650 mg 11/23/24 21:59 Acetaminophen 325 Mg Tablet PO Q6H PRN PAIN RATED 1-3/FEVER Apixaban 5 mg 11/23/24 22:00 11/28/24 09:46 Apixaban 5 Mg Tablet PO 5 mg Q12HR JEANE Administration Bumetanide 1 mg 11/23/24 22:00 11/28/24 09:46 Bumetanide Inj 1 Mg/4 Ml Vial IV PUSH 1 mg BID JEANE Administration Buspirone HCl 15 mg 11/23/24 22:00 11/28/24 09:46 Buspirone Hcl 5 Mg Tablet PO 15 mg TID JEANE Administration Dextrose 12.5 gm 11/23/24 21:55 Dextrose 50% 25 Gm/50 Ml Syringe IV PUSH PRN PRN Hypoglycemia Protocol Diltiazem HCl 300 mg 11/24/24 09:00 11/28/24 09:46 Diltiazem Hcl Cd 300 Mg Cap.24hr PO 300 mg QAM JEANE Administration Empagliflozin 10 mg 11/24/24 09:00 11/28/24 09:46 Empagliflozin 10 Mg Tablet PO 10 mg DAILY JEANE Administration Ferrous Sulfate 325 mg 11/24/24 09:00 11/28/24 09:46 Ferrous Sulfate [address] PO 325 mg DAILY JEANE Administration Glucagon 1 mg 11/23/24 21:55 Glucagon For Inj 1 Mg Vial IM PRN PRN Hypoglycemia Protocol Glucose 15 gm 11/23/24 21:55 Glucose Oral Gel 15 Gm Of Glucse In 37.5 Gm Tube PO PRN PRN Hypoglycemia Protocol Dextrose 1,000 mls @ 100 mls/hr 11/23/24 21:55 Dextrose 5% 1,000 Ml IVPB PRN PRN Hypoglycemia Protocol Micafungin Sodium 100 mg/ 100 mls @ 100 mls/hr 11/27/24 11:00 11/28/24 09:48 Sodium Chloride IVPB 100 mls/hr DAILY JEANE Administration Insulin Aspart 3 - 6 units 11/24/24 08:00 11/28/24 09:38 Insulin Aspart (*Bkc) 100 Units/Ml SUB-Q Not Given TIDWM JEANE Protocol Insulin Aspart 1 - 3 units 11/23/24 22:10 11/27/24 21:37 Insulin Aspart (*Bkc) 100 Units/Ml SUB-Q Not Given HS [facility] Protocol Lamotrigine 100 mg 11/24/24 09:00 11/28/24 09:46 Lamotrigine 100 Mg Tablet PO 100 mg DAILY JEANE Administration Levothyroxine Sodium 75 mcg 11/24/24 06:30 11/28/24 05:29 Levothyroxine Sodium 75 Mcg Tablet PO 75 mcg DAILY@0630 JEANE Administration Metoprolol Tartrate 12.5 mg 11/23/24 22:00 11/28/24 09:46 Metoprolol Tartrate 12.5 Mg Tablet PO 12.5 mg BID JEANE Administration Multivitamins Therapeutic 1 tablet 11/24/24 09:00 11/28/24 09:46 Multivitamins Therapeutic Tab (*Bkc) PO 1 tablet DAILY JEANE Administration Pantoprazole Sodium 40 mg 11/23/24 22:00 11/28/24 09:57 Pantoprazole 40 Mg Tablet PO 40 mg BID JEANE Administration Paroxetine HCl 10 mg 11/24/24 09:00 11/28/24 09:46 Paroxetine 10 Mg Tablet PO 10 mg QAM JEANE Administration Potassium Chloride 40 meq 11/24/24 09:00 11/28/24 09:47 Potassium Chloride 20 Meq Er Tablet PO 40 meq DAILY JEANE Administration Quetiapine Fumarate 200 mg 11/27/24 21:00 11/27/24 21:37 Quetiapine Fumarate 100 Mg Tablet PO 200 mg HS JEANE Administration Spironolactone 25 mg 11/24/24 09:00 11/28/24 09:46 Spironolactone 25 Mg Tablet PO 25 mg DAILY JEANE Administration Sucralfate 1 gm 11/24/24 09:00 11/28/24 09:46 Sucralfate 1 Gm Tablet PO 1 gm DAILY JEANE Administration Trazodone HCl 50 mg 11/27/24 10:34 Trazodone Hcl 50 Mg Tablet PO QHS PRN insomnia Radiology Results: ITS Impressions Chest X-Ray 11/23/24 15:12 IMPRESSION: Cardiomegaly with cardiac decompensation and pulmonary edema. Superimposed pneumonitis cannot be excluded. Clinical correlation advised. Labs Labs: Laboratory Results - last 24 hr 11/27/24 11/27/24 11/28/24 16:05 20:18 08:08 POC Capillary Glucose 171 H 136 H 117 H Quality VTE Prophylaxis VTE prophylaxis: pharmacologic ordered (on apixaban)
[2024-11-28] MEDS: QUEtiapine FUMARATE 100 MG TABLET 200 MG PO (20:46)
[2024-11-29] VITALS (9 sets, daily range): BP systolic 122–132; BP diastolic 42–63; PULSE 60–86; RESP 15–22; TEMP 36.2–36.8; O2SAT 93–95
[2024-11-29] MEDS: LEVOTHYROXINE SODIUM 75 MCG TABLET PO (05:45)
[2024-11-29 08:52] LABS: Anion Gap 6 mmol/L (4-12); Blood Urea Nitrogen 26 mg/dL (7-17); Calcium 8.3 mg/dL (8.4-10.2); Carbon Dioxide 32 mmol/L (22-30); Chloride 103 mmol/L (98-107); Estimated CRCL calculation 69 ml/min; Estimated Glomerular Filt Rate 39; Glucose 116 mg/dL (65-110); Potassium 4.2 mmol/L (3.4-5.0); Sodium 141 mmol/L (137-145)
[2024-11-29] MEDS: dilTIAZem HCL CD 300 MG CAP.24HR PO (09:03)
[2024-11-29] MEDS: MICAFUNGIN SODIUM 100 MG in SODIUM CHLORIDE 0.9% IV 100 ML IVPB (09:03)
[2024-11-29] MEDS: BUMETANIDE INJ 1 MG/4 ML VIAL IV PUSH ×2 (09:03→18:02)
[2024-11-29] MEDS: APIXABAN 5 MG TABLET PO ×2 (09:03→21:03)
[2024-11-29] MEDS: METOPROLOL TARTRATE 12.5 MG TABLET PO ×2 (09:03→18:02)
[2024-11-29] MEDS: lamoTRIgine 100 MG TABLET PO (09:03)
[2024-11-29] MEDS: EMPAGLIFLOZIN 10 MG TABLET PO (09:03)
[2024-11-29] MEDS: FERROUS SULFATE 325 MG TABLET DR PO (09:04)
[2024-11-29] MEDS: PANTOPRAZOLE 40 MG TABLET PO ×2 (09:04→18:02)
[2024-11-29] MEDS: POTASSIUM CHLORIDE 20 MEQ ER TABLET 40 MEQ PO (09:04)
[2024-11-29] MEDS: PARoxetine 10 MG TABLET PO (09:04)
[2024-11-29] MEDS: SPIRONOLACTONE 25 MG TABLET PO (09:04)
[2024-11-29] MEDS: SUCRALFATE 1 GM TABLET PO (09:04)
[2024-11-29] MEDS: MULTIVITAMINS THERAPEUTIC TAB (*BKC) 1 TABLET PO (09:04)
[2024-11-29] MEDS: busPIRone HCL 5 MG TABLET 15 MG PO ×3 (09:04→18:02)
[2024-11-29] MEDS: metroNIDAZOLE 500 MG TABLET PO ×2 (13:20→21:03)
[2024-11-29] MEDS: DOXYCYCLINE HYCLATE 100 MG TABLET PO ×2 (13:21→21:03)
--- NOTE | 2024-11-29 13:42 | PM.IMPN ---
Progress Note: A&P Assessment and Plan (1) Acute exacerbation of CHF (congestive heart failure): Code(s): I50.9 - Heart failure, unspecified Status: Acute Plan Acute chronic heart failure, systolic Presented increasing lower extremity edema and increased abdominal girth over the past 7 to 10 days noted improvement Continue Bumex 1 mg b.i.d. IV push Monitor input output, renal function, and electrolytes. Echocardiogram showed preserved ejection fraction Severe Intertriginous Candidiasis Patient has severe candidiasis under abdominal wall folds with bleeding Completed 3 days of Micafungin now on Fluconazole continue wound care monitor Wound infection Secondary wound infection of cutaneous candidiasis Wound culture positve for MRSA and Prevotella species On Doxycycline and Flagyl day 1 monitor Paroxysmal AFib Normal sinus rhythm. Continue apixaban for stroke prophylaxis. CKD stage 3 Creatinine 1.43 today, slightly elevated, within the baseline Follow-up BMP Blood pressures monitored. Type 2 diabetes Initiate sliding scale insulin, Accu-Cheks, and hypoglycemic protocol. Check hemoglobin A1c and TSH. ZULEIKA BiPAP will be provided for the patient to use while hospitalized. The patient's toenails are long and have fungal infection She is unable to get out of the home for appointments. Consult reconditioner DVT prophylaxis on Eliquis Monitor patient 2 more days to allow wound drainage to improve so patient can take care of wound change at home herself At his point she only qualifies for home health and they do not comout daily, meanwhile patient is needing twice a day of wound dressing change Subjective Date/time seen: 11/29/24 13:42 Interval history: Comfortable at bedside Continue Fluconazole Started on Flagyl and Doxycycline today for MRSA wound infection Review of Systems Review of Systems: 12 systems were reviewed and are negative except for as per HPI. Exam Narrative: General: Nontoxic-appearing female sitting up in bed in no acute distress. Weight: 194.5 kg. BMI: 73.6. HEENT: PERRL, EOMI. Sclera anicteric. Oral mucosa moist. Oropharynx is crowded. Neck: Supple. Exam limited due to neck circumference. Respiratory: Respirations are nonlabored she is speaking in full sentences. Lung sounds are diminished due to body habitus with faint crackles at the bases. Cardiovascular: Regular rate and rhythm with S1-S2. Gastrointestinal: Abdomen is morbidly obese and nontender with positive bowel sounds. Skin: Scaly and patchy rashes in multiple skin folds with weeping coming from the wounds on the lower abdomen. Extremities: No cyanosis or clubbing. Legs are large with chronic lymphedema, right greater than left. Neurological: Alert. Cranial nerves 2-12 are grossly intact. No gross focal deficits to casual conversation. Psychiatric: Pleasant and cooperative with normal mood and affect. Judgment and insight intact. Objective Data Vital Signs Vital Signs: Vital Signs - 24 hr 11/28/24 14:00 11/28/24 16:57 11/28/24 21:00 Temperature 97.2 F L Pulse Rate 60 80 Respiratory Rate 18 Blood Pressure 114/51 L Pulse Oximetry 98 94 Oxygen Delivery Room Air Fraction of Inspired Oxygen 21 11/28/24 21:08 11/28/24 23:36 11/29/24 02:13 Temperature 97.8 F Pulse Rate 66 Respiratory Rate 16 13 16 Blood Pressure 117/63 Pulse Oximetry 94 Oxygen Delivery BiPAP BiPAP Fraction of Inspired Oxygen 11/29/24 04:42 11/29/24 05:48 11/29/24 09:03 Temperature 97.3 F L Pulse Rate 81 80 Respiratory Rate 15 16 Blood Pressure 132/63 Pulse Oximetry 95 Oxygen Delivery BiPAP Fraction of Inspired Oxygen Intake/Output Intake/Output: Intake & Output 11/26/24 11/27/24 11/28/24 11/29/24 23:59 23:59 23:59 23:59 Intake Total 1820 2710 1120 240 Balance 1820 2710 1120 240 Meds/Results Medications: Active Medications Generic Name Dose Route Start Last Admin Trade Name Freq PRN Reason Stop Dose Admin Acetaminophen 650 mg 11/23/24 21:59 Acetaminophen 325 Mg Tablet PO Q6H PRN PAIN RATED 1-3/FEVER Apixaban 5 mg 11/23/24 22:00 11/29/24 09:03 Apixaban 5 Mg Tablet PO 5 mg Q12HR JEANE Administration Bumetanide 1 mg 11/23/24 22:00 11/29/24 09:03 Bumetanide Inj 1 Mg/4 Ml Vial IV PUSH 1 mg BID JEANE Administration Buspirone HCl 15 mg 11/23/24 22:00 11/29/24 13:20 Buspirone Hcl 5 Mg Tablet PO 15 mg TID JEANE Administration Dextrose 12.5 gm 11/23/24 21:55 Dextrose 50% 25 Gm/50 Ml Syringe IV PUSH PRN PRN Hypoglycemia Protocol Diltiazem HCl 300 mg 11/24/24 09:00 11/29/24 09:03 Diltiazem Hcl Cd 300 Mg Cap.24hr PO 300 mg QAM JEANE Administration Doxycycline Hyclate 100 mg 11/29/24 12:05 11/29/24 13:21 Doxycycline Hyclate 100 Mg Tablet PO 100 mg Q12HR JEANE Administration Empagliflozin 10 mg 11/24/24 09:00 11/29/24 09:03 Empagliflozin 10 Mg Tablet PO 10 mg DAILY JEANE Administration Ferrous Sulfate 325 mg 11/30/24 12:00 Ferrous Sulfate [address] PO Q24H JEANE Fluconazole 200 mg 11/30/24 09:00 Fluconazole 100 Mg Tablet PO QAM [facility] Glucagon 1 mg 11/23/24 21:55 Glucagon For Inj 1 Mg Vial IM PRN PRN Hypoglycemia Protocol Glucose 15 gm 11/23/24 21:55 Glucose Oral Gel 15 Gm Of Glucse In 37.5 Gm Tube PO PRN PRN Hypoglycemia Protocol Dextrose 1,000 mls @ 100 mls/hr 11/23/24 21:55 Dextrose 5% 1,000 Ml IVPB PRN PRN Hypoglycemia Protocol Lamotrigine 100 mg 11/24/24 09:00 11/29/24 09:03 Lamotrigine 100 Mg Tablet PO 100 mg DAILY JEANE Administration Levothyroxine Sodium 75 mcg 11/24/24 06:30 11/29/24 05:45 Levothyroxine Sodium 75 Mcg Tablet PO 75 mcg DAILY@0630 JEANE Administration Metoprolol Tartrate 12.5 mg 11/23/24 22:00 11/29/24 09:03 Metoprolol Tartrate 12.5 Mg Tablet PO 12.5 mg BID JEANE Administration Metronidazole 500 mg 11/29/24 12:30 11/29/24 13:20 Metronidazole 500 Mg Tablet PO 500 mg Q8HR JEANE Administration Multivitamins Therapeutic 1 tablet 11/24/24 09:00 11/29/24 09:04 Multivitamins Therapeutic Tab (*Bkc) PO 1 tablet DAILY JEANE Administration Pantoprazole Sodium 40 mg 11/23/24 22:00 11/29/24 09:04 Pantoprazole 40 Mg Tablet PO 40 mg BID JEANE Administration Paroxetine HCl 10 mg 11/24/24 09:00 11/29/24 09:04 Paroxetine 10 Mg Tablet PO 10 mg QAM JEANE Administration Potassium Chloride 40 meq 11/24/24 09:00 11/29/24 09:04 Potassium Chloride 20 Meq Er Tablet PO 40 meq DAILY JEANE Administration Quetiapine Fumarate 200 mg 11/27/24 21:00 11/28/24 20:46 Quetiapine Fumarate 100 Mg Tablet PO 200 mg HS JEANE Administration Spironolactone 25 mg 11/24/24 09:00 11/29/24 09:04 Spironolactone 25 Mg Tablet PO 25 mg DAILY JEANE Administration Sucralfate 1 gm 11/24/24 09:00 11/29/24 09:04 Sucralfate 1 Gm Tablet PO 1 gm DAILY JEANE Administration Trazodone HCl 50 mg 11/27/24 10:34 Trazodone Hcl 50 Mg Tablet PO QHS PRN insomnia Radiology Results: ITS Impressions Chest X-Ray 11/23/24 15:12 IMPRESSION: Cardiomegaly with cardiac decompensation and pulmonary edema. Superimposed pneumonitis cannot be excluded. Clinical correlation advised. Labs Labs: Laboratory Results - last 24 hr 11/29/24 08:37 Sodium 141 Potassium 4.2 Chloride 103 Carbon Dioxide 32 H Anion Gap 6 BUN 26 H Creatinine 1.43 H Estim Creat Clear Calc 69 Estimated GFR 39 L Glucose 116 H Calcium 8.3 L Quality VTE Prophylaxis VTE prophylaxis: pharmacologic ordered (on apixaban)
[2024-11-29] MEDS: QUEtiapine FUMARATE 100 MG TABLET 200 MG PO (21:03)
[2024-11-30 04:16] VITALS: RESP 16
[2024-11-30] MEDS: metroNIDAZOLE 500 MG TABLET PO ×3 (05:54→21:23)
[2024-11-30] MEDS: LEVOTHYROXINE SODIUM 75 MCG TABLET PO (05:54)
[2024-11-30 05:58] VITALS: BP 120/50; PULSE 63; RESP 20; TEMP 36.8; O2SAT 95
[2024-11-30 05:59] LABS: Basophils Absolute Auto 0.1 K/mm3 (0.0-0.1); Basophils Percent Auto 0.9 % (0.2-1.2); Eosinophils Absolute Auto 0.2 K/mm3 (0-0.3); Eosinophils Percent Auto 3.2 % (0-4.4); Hematocrit 37.5 % (37.0-47.0); Hemoglobin 11.3 g/dL (12.0-15.0); Immature Granulocyte Absolute 0.02 K/mm3 (0.00-0.031); Immature Granulocyte Percent A 0.3 % (0-0.5); Lymphocytes Absolute Auto 1.41 K/mm3 (0.9-3.2); Mean Corpuscular HGB Conc 30.1 g/dl (32-36); Mean Corpuscular Hemoglobin 26.5 pg (26-34); Mean Corpuscular Volume 87.8 fl (80-100); Mean Platelet Volume 10.1 fl (7.4-10.4); Monocytes Absolute Auto 0.5 K/mm3 (0.1-0.6); Monocytes Percent Auto 8.7 % (2.6-8.5); Neutrophils Absolute Auto 3.7 K/mm3 (1.3-6.7); Neutrophils Percent Auto 62.9 % (45.5-73.1); Platelet Count Result 194 k/mm3 (150-375); Red Blood Count 4.27 M/mm3 (4.2-5.4); Red Cell Distribution Width 15.4 % (11.5-14.5); White Blood Count 5.9 K/mm3 (4.5-10.0)
[2024-11-30 06:11] LABS: Alanine Aminotransferase 18 U/L (6-35); Albumin Level 3.4 g/dL (3.5-5.1); Alkaline Phosphatase 88 U/L (38-126); Anion Gap 6 mmol/L (4-12); Aspartate Amino Transferase 26 U/L (14-36); Bilirubin,Total 0.7 mg/dL (0.2-1.3); Blood Urea Nitrogen 26 mg/dL (7-17); Calcium 8.5 mg/dL (8.4-10.2); Carbon Dioxide 31 mmol/L (22-30); Chloride 102 mmol/L (98-107); Estimated CRCL calculation 67 ml/min; Estimated Glomerular Filt Rate 37; Glucose 111 mg/dL (65-110); Magnesium 2.4 mg/dL (1.6-2.3); Potassium 4.2 mmol/L (3.4-5.0); Sodium 139 mmol/L (137-145)
[2024-11-30 08:46] VITALS: BP 129/52; PULSE 74; RESP 18; TEMP 36.6; O2SAT 94
[2024-11-30] MEDS: DOXYCYCLINE HYCLATE 100 MG TABLET PO ×2 (09:15→21:24)
[2024-11-30] MEDS: EMPAGLIFLOZIN 10 MG TABLET PO (09:15)
[2024-11-30] MEDS: lamoTRIgine 100 MG TABLET PO (09:15)
[2024-11-30] MEDS: APIXABAN 5 MG TABLET PO ×2 (09:15→21:24)
[2024-11-30] MEDS: FLUCONAZOLE 100 MG TABLET 200 MG PO (09:15)
[2024-11-30] MEDS: POTASSIUM CHLORIDE 20 MEQ ER TABLET 40 MEQ PO (09:16)
[2024-11-30] MEDS: SUCRALFATE 1 GM TABLET PO (09:16)
[2024-11-30] MEDS: MULTIVITAMINS THERAPEUTIC TAB (*BKC) 1 TABLET PO (09:16)
[2024-11-30] MEDS: PARoxetine 10 MG TABLET PO (09:16)
[2024-11-30] MEDS: busPIRone HCL 5 MG TABLET 15 MG PO ×3 (09:16→16:38)
[2024-11-30] MEDS: PANTOPRAZOLE 40 MG TABLET PO ×2 (09:17→16:38)
[2024-11-30] MEDS: METOPROLOL TARTRATE 12.5 MG TABLET PO (09:17)
[2024-11-30] MEDS: SPIRONOLACTONE 25 MG TABLET PO (09:17)
[2024-11-30] MEDS: dilTIAZem HCL CD 300 MG CAP.24HR PO (09:17)
[2024-11-30] MEDS: BUMETANIDE INJ 1 MG/4 ML VIAL IV PUSH ×2 (10:00→16:35)
--- NOTE | 2024-11-30 10:02 | P.PNIM_ITS ---
Progress Note: A&P Assessment and Plan (1) Acute exacerbation of CHF (congestive heart failure): Code(s): I50.9 - Heart failure, unspecified Status: Acute Plan Acute chronic heart failure, systolic Presented increasing lower extremity edema and increased abdominal girth over the past 7 to 10 days noted improvement Continue Bumex 1 mg b.i.d. IV push Monitor input output, renal function, and electrolytes. Echocardiogram showed preserved ejection fraction Severe Intertriginous Candidiasis Patient has severe candidiasis under abdominal wall folds with bleeding Completed 3 days of Micafungin now on Fluconazole continue wound care monitor Wound infection Secondary wound infection of cutaneous candidiasis Wound culture positve for MRSA and Prevotella species On Doxycycline and Flagyl day 1 monitor Paroxysmal AFib Normal sinus rhythm. Continue apixaban for stroke prophylaxis. CKD stage 3 Creatinine 1.43 today, slightly elevated, within the baseline Follow-up BMP Blood pressures monitored. Type 2 diabetes Initiate sliding scale insulin, Accu-Cheks, and hypoglycemic protocol. Check hemoglobin A1c and TSH. ZULEIKA BiPAP will be provided for the patient to use while hospitalized. The patient's toenails are long and have fungal infection She is unable to get out of the home for appointments. Consult group director experience DVT prophylaxis on Eliquis Monitor patient 2 more days to allow wound drainage to improve so patient can take care of wound change at home herself At his point she only qualifies for home health and they do not comout daily, meanwhile patient is needing twice a day of wound dressing change Subjective Date/time seen: 11/30/24 10:02 Interval history: Patient reports evidence of bleeding from her wound. Will discuss with care coordination in regards to dressing frequency. Review of Systems Review of Systems: 12 systems were reviewed and are negativ e except for as per HPI. Exam Narrative: General: Nontoxic-appearing female sitting up in bed in no acute distress. Weight: 194.5 kg. BMI: 73.6. HEENT: PERRL, EOMI. Sclera anicteric. Oral mucosa moist. Oropharynx is crowded. Neck: Supple. Exam limited due to neck circumference. Respiratory: Respirations are nonlabored she is speaking in full sentences. Lung sounds are diminished due to body habitus with faint crackles at the bases. Cardiovascular: Regular rate and rhythm with S1-S2. Gastrointestinal: Abdomen is morbidly obese and nontender with positive bowel sounds. Skin: Scaly and patchy rashes in multiple skin folds with weeping coming from the wounds on the lower abdomen. Extremities: No cyanosis or clubbing. Legs are large with chronic lymphedema, right greater than left. Neurological: Alert. Cranial nerves 2-12 are grossly intact. No gross focal deficits to casual conversation. Psychiatric: Pleasant and cooperative with normal mood and affect. Judgment and insight intact. Objective Data Vital Signs Vital Signs: Vital Signs - 24 hr 11/29/24 14:00 11/29/24 18:02 11/29/24 21:17 Temperature 97.1 F L 98.2 F Pulse Rate 60 86 70 Respiratory Rate 18 22 H Blood Pressure 122/42 L 123/56 L Pulse Oximetry 93 93 Oxygen Delivery 11/29/24 23:45 11/30/24 04:16 11/30/24 05:58 Temperature 98.2 F Pulse Rate 63 Respiratory Rate 16 16 20 Blood Pressure 120/50 L Pulse Oximetry 93 95 Oxygen Delivery BiPAP BiPAP 11/30/24 08:46 Temperature 97.8 F Pulse Rate 74 Respiratory Rate 18 Blood Pressure 129/52 L Pulse Oximetry 94 Oxygen Delivery Intake/Output Intake/Output: Intake & Output 11/27/24 11/28/24 11/29/24 11/30/24 23:59 23:59 23:59 23:59 Intake Total 2710 1120 720 930 Balance 2710 1120 720 930 Meds/Results Medications: Active Medications Generic Name Dose Route Start Last Admin Trade Name Freq PRN Reason Stop Dose Admin Acetaminophen 650 mg 11/23/24 21:59 Acetaminophen 325 Mg Tablet PO Q6H PRN PAIN RATED 1-3/FEVER Apixaban 5 mg 11/23/24 22:00 11/30/24 09:15 Apixaban 5 Mg Tablet PO 5 mg Q12HR JEANE Administration Bumetanide 1 mg 11/23/24 22:00 11/29/24 18:02 Bumetanide Inj 1 Mg/4 Ml Vial IV PUSH 1 mg BID JEANE Administration Buspirone HCl 15 mg 11/23/24 22:00 11/30/24 09:16 Buspirone Hcl 5 Mg Tablet PO 15 mg TID JEANE Administration Dextrose 12.5 gm 11/23/24 21:55 Dextrose 50% 25 Gm/50 Ml Syringe IV PUSH PRN PRN Hypoglycemia Protocol Diltiazem HCl 300 mg 11/24/24 09:00 11/30/24 09:17 Diltiazem Hcl Cd 300 Mg Cap.24hr PO 300 mg QAM JEANE Administration Doxycycline Hyclate 100 mg 11/29/24 12:05 11/30/24 09:15 Doxycycline Hyclate 100 Mg Tablet PO 100 mg Q12HR JEANE Administration Empagliflozin 10 mg 11/24/24 09:00 11/30/24 09:15 Empagliflozin 10 Mg Tablet PO 10 mg DAILY JEANE Administration Ferrous Sulfate 325 mg 11/30/24 12:00 Ferrous Sulfate [address] PO Q24H JEANE Fluconazole 200 mg 11/30/24 09:00 11/30/24 09:15 Fluconazole 100 Mg Tablet PO 200 mg QAM JEANE Administration Glucagon 1 mg 11/23/24 21:55 Glucagon For Inj 1 Mg Vial IM PRN PRN Hypoglycemia Protocol Glucose 15 gm 11/23/24 21:55 Glucose Oral Gel 15 Gm Of Glucse In 37.5 Gm Tube PO PRN PRN Hypoglycemia Protocol Dextrose 1,000 mls @ 100 mls/hr 11/23/24 21:55 Dextrose 5% 1,000 Ml IVPB PRN PRN Hypoglycemia Protocol Lamotrigine 100 mg 11/24/24 09:00 11/30/24 09:15 Lamotrigine 100 Mg Tablet PO 100 mg DAILY JEANE Administration Levothyroxine Sodium 75 mcg 11/24/24 06:30 11/30/24 05:54 Levothyroxine Sodium 75 Mcg Tablet PO 75 mcg DAILY@0630 JEANE Administration Metoprolol Tartrate 12.5 mg 11/23/24 22:00 11/30/24 09:17 Metoprolol Tartrate 12.5 Mg Tablet PO 12.5 mg BID JEANE Administration Metronidazole 500 mg 11/29/24 12:30 11/30/24 05:54 Metronidazole 500 Mg Tablet PO 500 mg Q8HR JEANE Administration Multivitamins Therapeutic 1 tablet 11/24/24 09:00 11/30/24 09:16 Multivitamins Therapeutic Tab (*Bkc) PO 1 tablet DAILY JEANE Administration Pantoprazole Sodium 40 mg 11/23/24 22:00 11/30/24 09:17 Pantoprazole 40 Mg Tablet PO 40 mg BID JEANE Administration Paroxetine HCl 10 mg 11/24/24 09:00 11/30/24 09:16 Paroxetine 10 Mg Tablet PO 10 mg QAM JEANE Administration Potassium Chloride 40 meq 11/24/24 09:00 11/30/24 09:16 Potassium Chloride 20 Meq Er Tablet PO 40 meq DAILY JEANE Administration Quetiapine Fumarate 200 mg 11/27/24 21:00 11/29/24 21:03 Quetiapine Fumarate 100 Mg Tablet PO 200 mg HS JEANE Administration Spironolactone 25 mg 11/24/24 09:00 11/30/24 09:17 Spironolactone 25 Mg Tablet PO 25 mg DAILY JEANE Administration Sucralfate 1 gm 11/24/24 09:00 11/30/24 09:16 Sucralfate 1 Gm Tablet PO 1 gm DAILY JEANE Administration Trazodone HCl 50 mg 11/27/24 10:34 Trazodone Hcl 50 Mg Tablet PO QHS PRN insomnia Radiology Results: ITS Impressions Chest X-Ray 11/23/24 15:12 IMPRESSION: Cardiomegaly with cardiac decompensation and pulmonary edema. Superimposed pneumonitis cannot be excluded. Clinical correlation advised. Labs Labs: Laboratory Results - last 24 hr 11/30/24 05:30 WBC 5.9 RBC 4.27 Hgb 11.3 L Hct 37.5 MCV 87.8 MCH 26.5 MCHC 30.1 L RDW 15.4 H Plt Count 194 MPV 10.1 Immature Gran % (Auto) 0.3 Neut % (Auto) 62.9 Lymph % (Auto) 24.0 Jewell % (Auto) 8.7 H Eos % (Auto) 3.2 Baso % (Auto) 0.9 Lymph # (Auto) 1.41 Jewell # (Auto) 0.5 Eos # (Auto) 0.2 Baso # (Auto) 0.1 Abs Immat Gran (auto) 0.02 Absolute Neuts (auto) 3.7 Absolute Nucleated RBC 0.000 Nucleated RBC % 0.0 Sodium 139 Potassium 4.2 Chloride 102 Carbon Dioxide 31 H Anion Gap 6 BUN 26 H Creatinine 1.48 H Estim Creat Clear Calc 67 Estimated GFR 37 L Glucose 111 H Calcium 8.5 Magnesium 2.4 H Total Bilirubin 0.7 AST 26 ALT 18 Alkaline Phosphatase 88 Total Protein 7.0 Albumin 3.4 L Quality VTE Prophylaxis VTE prophylaxis: pharmacologic ordered (on apixaban) Hospitalist MIPS Advance Care Plan I have confirmed that the patient's Advanced Care Plan is present, code status is documented, or surrogate decision maker is listed in patient medical record.: Yes Medication Reconciliation I have utilized all available resources to obtain, update and review the patients current medications (includes all prescriptions, OTC, herbals, cannabis, and nutritional supplements).: Yes
[2024-11-30] MEDS: FERROUS SULFATE 325 MG TABLET DR PO (12:59)
[2024-11-30 14:00] VITALS: BP 114/47; PULSE 58; RESP 18; TEMP 36.4; O2SAT 94
[2024-11-30 16:42] VITALS: PULSE 50
[2024-11-30 20:26] VITALS: BP 126/52; PULSE 64; RESP 20; TEMP 36.7; O2SAT 94
[2024-11-30] MEDS: QUEtiapine FUMARATE 100 MG TABLET 200 MG PO (21:24)
[2024-12-01 05:43] VITALS: BP 112/45; PULSE 62; RESP 19; TEMP 36.5; O2SAT 92
[2024-12-01] MEDS: metroNIDAZOLE 500 MG TABLET PO ×3 (05:52→20:13)
[2024-12-01] MEDS: LEVOTHYROXINE SODIUM 75 MCG TABLET PO (05:52)
[2024-12-01 06:34] LABS: Hemoglobin 11.3 g/dL (12.0-15.0); Mean Corpuscular HGB Conc 29.7 g/dl (32-36); Mean Corpuscular Hemoglobin 26.4 pg (26-34); Mean Corpuscular Volume 88.8 fl (80-100); Platelet Count Result 190 k/mm3 (150-375); Red Blood Count 4.28 M/mm3 (4.2-5.4); Red Cell Distribution Width 15.4 % (11.5-14.5); White Blood Count 5.5 K/mm3 (4.5-10.0)
[2024-12-01 06:45] LABS: Alanine Aminotransferase 19 U/L (6-35); Albumin Level 3.5 g/dL (3.5-5.1); Alkaline Phosphatase 89 U/L (38-126); Anion Gap 9 mmol/L (4-12); Aspartate Amino Transferase 27 U/L (14-36); Bilirubin,Total 0.6 mg/dL (0.2-1.3); Blood Urea Nitrogen 25 mg/dL (7-17); Calcium 8.5 mg/dL (8.4-10.2); Carbon Dioxide 28 mmol/L (22-30); Chloride 102 mmol/L (98-107); Estimated CRCL calculation 68 ml/min; Estimated Glomerular Filt Rate 38; Glucose 111 mg/dL (65-110); Sodium 139 mmol/L (137-145)
[2024-12-01 09:25] VITALS: PULSE 70; RESP 20; TEMP 36.7; O2SAT 96
[2024-12-01] MEDS: BUMETANIDE INJ 1 MG/4 ML VIAL IV PUSH ×2 (09:57→16:43)
--- NOTE | 2024-12-01 10:01 | PCNWS ---
Weekly nutritional screen. Patient is tolerating current Heart Healthy diet with adequate intake, 100% all meals. No weight loss reported. No acute nutritional needs at this time. Morbid obesity is an outpatient issue.
[2024-12-01] MEDS: PARoxetine 10 MG TABLET PO (10:41)
[2024-12-01] MEDS: FLUCONAZOLE 100 MG TABLET 200 MG PO (10:41)
[2024-12-01] MEDS: lamoTRIgine 100 MG TABLET PO (10:41)
[2024-12-01] MEDS: MULTIVITAMINS THERAPEUTIC TAB (*BKC) 1 TABLET PO (10:41)
[2024-12-01] MEDS: SPIRONOLACTONE 25 MG TABLET PO (10:41)
[2024-12-01] MEDS: dilTIAZem HCL CD 300 MG CAP.24HR PO (10:41)
[2024-12-01] MEDS: SUCRALFATE 1 GM TABLET PO (10:41)
[2024-12-01] MEDS: PANTOPRAZOLE 40 MG TABLET PO ×2 (10:41→16:43)
[2024-12-01 10:43] VITALS: PULSE 70
[2024-12-01] MEDS: METOPROLOL TARTRATE 12.5 MG TABLET PO ×2 (10:43→16:43)
[2024-12-01] MEDS: busPIRone HCL 5 MG TABLET 15 MG PO ×3 (10:43→16:43)
[2024-12-01] MEDS: APIXABAN 5 MG TABLET PO ×2 (10:44→20:12)
[2024-12-01] MEDS: EMPAGLIFLOZIN 10 MG TABLET PO (10:44)
[2024-12-01] MEDS: DOXYCYCLINE HYCLATE 100 MG TABLET PO ×2 (10:44→20:12)
[2024-12-01] MEDS: POTASSIUM CHLORIDE 20 MEQ ER TABLET 40 MEQ PO (10:44)
[2024-12-01] MEDS: FERROUS SULFATE 325 MG TABLET DR PO (13:10)
[2024-12-01 14:00] VITALS: BP 126/54; PULSE 65; RESP 19; TEMP 36.7; O2SAT 94
--- NOTE | 2024-12-01 14:11 | PM.DS ---
DS: Admitting Diagnosis Discharge Date 12/01/2024 Admitting Diagnosis Weeping from legs and abdomen DS: Discharge Diagnosis Discharge Diagnosis (1) Acute exacerbation of CHF (congestive heart failure): Code(s): I50.9 - Heart failure, unspecified Status: Acute Plan Acute chronic heart failure, systolic Presented increasing lower extremity edema and increased abdominal girth over the past 7 to 10 days noted improvement Continue Bumex 1 mg b.i.d. IV push Monitor input output, renal function, and electrolytes. Echocardiogram showed preserved ejection fraction Severe Intertriginous Candidiasis Patient has severe candidiasis under abdominal wall folds with bleeding Completed 3 days of Micafungin now on Fluconazole continue wound care monitor Wound infection/MRSA Secondary wound infection of cutaneous candidiasis Wound culture positive for MRSA and Prevotella species Please complete Doxycycline and Flagyl until 12/12 Please complete Fluconazole (dose adjust according to her CrCl)until 12/10. monitor Paroxysmal AFib Normal sinus rhythm. Continue apixaban for stroke prophylaxis. CKD stage 3 Creatinine 1.43 today, slightly elevated, within the baseline Follow-up BMP Blood pressures monitored. Type 2 diabetes Initiate sliding scale insulin, Accu-Cheks, and hypoglycemic protocol. Check hemoglobin A1c and TSH. ZULEIKA BiPAP will be provided for the patient to use while hospitalized. The patient's toenails are long and have fungal infection She is unable to get out of the home for appointments. Consult industrial organization manager DVT prophylaxis on Eliquis Monitor patient 2 more days to allow wound drainage to improve so patient can take care of wound change at home herself At his point she only qualifies for home health and they do not comout daily, meanwhile patient is needing twice a day of wound dressing change DS: Summary Hospital Course Hospital Course: 49-year-old morbidly obese female with history of heart failure with preserved ejection fraction, pulmonary hypertension, obesity hypoventilation syndrome, obstructive sleep apnea on BiPAP, tracheostomy in 05/2023, paroxysmal atrial fibrillation on chronic anticoagulation, chronic kidney disease stage 3, hypertension, ovh-qheuwme-faqlworuc type 2 diabetes mellitus, hypothyroidism, lymphedema, depression, and anxiety who presented to the emergency department via EMS with complaints of weeping from legs and abdomen. She has chronic lymphedema which is typically worse in her right leg however over the past 7 to 10 days she has noticed a drastic increase in size of her legs as well as weight gain and increase in abdominal girth. Fluid is weeping from areas of breakdown under the panniculus. She is also feeling more short of breath than usual. Otherwise she is feeling okay. She is compliant with her medications and has not changed her diet or fluid intake. She denies fever, chills, sweats, cold and flu symptoms, chest pain, pleuritic pain, palpitations, nausea, vomiting, diarrhea, dysuria, and calf pain. In the ED: Vital signs were stable on arrival. Labs were significant for WBC count of 7.2, hemoglobin 11.2, BUN 22, creatinine 1.38, glucose 129, proBNP 1020. Chest x-ray shows moderately enlarged cardiac silhouette and pulmonary edema. She was given 1 mg bumetanide and she is being admitted in this setting for further diuresis. I assumed care on 11/30-0 12/01: Patient is mainly treated for severe Intertriginous infection. Patient's nasal MRSA positive. Had a long conversation with the case management in regards to wound dress changing. According to the case management patient will not be qualified to go to correction facility and the home health nurse will be coming 2-3 times in a week. I was present during wound dressing today and its extremely difficult to change the dressing with the help of 4 person to morbid obesity condition with heavy/large apron pannus accumulation around the abdomen. Once the abdominal fat was lifted by 3 person there is evidence of skin tear/ulceration. Patient need to continue the metronidazole, doxycycline, fluconazole and applying antifungal powder under the skin to treat the yeast and place large cotton pillowcase between the skin fold to act as a wicking agent. Patient has a high risk for readmission due to a nonhealing wound in the panniculus fold. Status at Discharge Cognitive/behavioral status at discharge: Stable Time Spent with Patient Time attestation: Total time spent providing and/or coordinating discharge services: 45 minutes Exam Narrative: General: Nontoxic-appearing female sitting up in bed in no acute distress. Weight: 194.5 kg. BMI: 73.6. HEENT: PERRL, EOMI. Sclera anicteric. Oral mucosa moist. Oropharynx is crowded. Neck: Supple. Exam limited due to neck circumference. Respiratory: Respirations are nonlabored she is speaking in full sentences. Lung sounds are diminished due to body habitus with faint crackles at the bases. Cardiovascular: Regular rate and rhythm with S1-S2. Gastrointestinal: Abdomen is morbidly obese and nontender with positive bowel sounds. Skin: Scaly and patchy rashes in multiple skin folds with weeping coming from the wounds on the lower abdomen. Extremities: No cyanosis or clubbing. Legs are large with chronic lymphedema, right greater than left. Neurological: Alert. Cranial nerves 2-12 are grossly intact. No gross focal deficits to casual conversation. Psychiatric: Pleasant and cooperative with normal mood and affect. Judgment and insight intact. DS: Data Data Completed and Pending Labs on day of discharge: Labs from last 24 hours 12/01/24 05:57 WBC 5.5 RBC 4.28 Hgb 11.3 L Hct 38.0 MCV 88.8 MCH 26.4 MCHC 29.7 L RDW 15.4 H Plt Count 190 MPV 10.0 Sodium 139 Potassium 4.0 Chloride 102 Carbon Dioxide 28 Anion Gap 9 BUN 25 H Creatinine 1.45 H Estim Creat Clear Calc 68 Estimated GFR 38 L Glucose 111 H Calcium 8.5 Total Bilirubin 0.6 AST 27 ALT 19 Alkaline Phosphatase 89 Total Protein 7.0 Albumin 3.5 Discharge Plan Discharge Attending physician on discharge: Dany Knight Discharging Clinician: Dany Knight Patient Disposition: Home with Home Health Service Activity: as tolerated Diet: as tolerated and heart healthy Discharge Instructions: Per Care Coordination: [facility] ([phone]) will call to set up initial visit. Wound care to abdominal skin fold: 1. Thoroughly cleanse under the abdominal skin fold with soap and water Daily, then thoroughly dry the skin. 2. Apply Antifungal powder under the skin fold in a thin layer. 3. Place Cotton pillow cases under the skin fold(pillow case hanging out) to wick trapped moisture. Powder should be applied twice a day. Patient Instructions: Antibiotic Form, Apixaban (By mouth) Patient Language: Korean Stand Alone Forms: General Discharge Information Follow-up/Referrals: Laurel Lr MD [Primary Care Provider] - (F/u with PCP in 3-5 days ) Moisés Meade MD [Physician] - (F/u with cardiology in 1-2 weeks) Discharge Medications: New fluconazole [Diflucan] 100 mg Tablet 200 mg PO QAM Qty: 20 0RF metronidazole 500 mg Tablet 500 mg PO Q8HR Qty: 40 0RF Rx Instructions: Please complete the course of December 13, 2024 doxycycline hyclate 100 mg Tablet 100 mg PO Q12HR Qty: 30 0RF Rx Instructions: Please complete the course on December 13, 2024 Continued miconazole nitrate 2 % powder 1 applic TOPICAL BID Qty: 85 2RF Rx Instructions: APPLY TO ABDOMINAL FOLDS AFTER CLEANSING ferrous sulfate 325 mg (65 mg iron) tablet,delayed release (DR/EC) 325 mg PO DAILY Qty: 100 1RF Eliquis 5 mg tablet 5 mg PO Q12HR Qty: 60 3RF Jardiance 10 mg tablet 10 mg PO DAILY Qty: 90 3RF quetiapine [Seroquel] 100 mg tablet 200 mg PO HS 30 Days Qty: 60 5RF metoprolol tartrate 25 mg tablet 12.5 mg PO BID Qty: 30 3RF diltiazem HCl 300 mg capsule,extended release 24hr 300 mg PO QAM Qty: 30 3RF spironolactone 25 mg tablet 25 mg PO DAILY Qty: 30 3RF pantoprazole 40 mg tablet,delayed release (DR/EC) 40 mg PO BID Qty: 60 6RF levothyroxine 75 mcg tablet 75 mcg PO DAILY Qty: 30 3RF Rx Instructions: TAKE ONE TABLET BY MOUTH DAILY potassium chloride [K-Tab] 20 mEq tablet extended release 40 meq PO DAILY Qty: 60 3RF paroxetine HCl 10 mg tablet 10 mg PO QAM Qty: 30 2RF lamotrigine 100 mg tablet 100 mg PO DAILY Qty: 30 4RF trazodone 50 mg tablet 50 mg PO QHS PRN (Reason: insomnia) Qty: 30 3RF sucralfate 1 gram tablet 1 g PO DAILY Qty: 30 3RF buspirone 15 mg tablet 15 mg PO TID Qty: 90 1RF acetaminophen 325 mg tablet 650 mg PO Q6H PRN (Reason: Pain) Daily Multivitamin 1 tablet PO DAILY Changed bumetanide 2 mg tablet 1 mg PO BID 30 Days Qty: 60 0RF Rx Instructions: Pt states she takes 2mg every day and every other day she takes it BID Date of admission: 11/24/24 10:06 Primary Care Provider: Laurel Lr Admitting Provider: Jie Cervantes Attending physician on admission: Jie Cervantes Condition: Stable
[2024-12-01 20:08] VITALS: PULSE 56; RESP 22; TEMP 37; O2SAT 93
[2024-12-01] MEDS: QUEtiapine FUMARATE 100 MG TABLET 200 MG PO (20:12)
[2024-12-01 21:05] VITALS: BP 128/55; PULSE 69; RESP 24; TEMP 36.1; O2SAT 97
== END 2024-12-01 20:57 | disposition home health service (06) | DRG 291 ==
LOC: ANHED 16:02 → ANH3MEDSUR 16:57
PROVIDERS: Physician Assistant; Admitting Provider Internal Medicine; Emergency Provider Emergency Medicine; PCP Family Medicine; Visit Provider General Practice
DX: I13.0 Hypertensive heart and chronic kidney disease with heart failure and stage 1 through stage 4 chronic kidney disease, or unspecified chronic kidney disease (principal); I50.23 Acute on chronic systolic (congestive) heart failure; E66.2 Morbid (severe) obesity with alveolar hypoventilation; Z68.44 Body mass index [BMI] 60.0-69.9, adult; N18.30 Chronic kidney disease, stage 3 unspecified; B37.2 Candidiasis of skin and nail; B95.62 Methicillin resistant Staphylococcus aureus infection as the cause of diseases classified elsewhere; B96.89 Other specified bacterial agents as the cause of diseases classified elsewhere; I48.0 Paroxysmal atrial fibrillation; E11.22 Type 2 diabetes mellitus with diabetic chronic kidney disease; I89.0 Lymphedema, not elsewhere classified; L30.4 Erythema intertrigo; B35.1 Tinea unguium; E03.9 Hypothyroidism, unspecified; F32.A Depression, unspecified; F41.9 Anxiety disorder, unspecified; K21.9 Gastro-esophageal reflux disease without esophagitis; G25.81 Restless legs syndrome; E11.42 Type 2 diabetes mellitus with diabetic polyneuropathy; Z79.01 Long term (current) use of 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; Z90.49 Acquired absence of other specified parts of digestive tract
CPT/HCPCS: 36415; 71045; 80048; 80053; 82948; 83735; 83880; 84443; 85025; 85027; 87070; 87075; 87181; 87205; 96374; 96375; 96376; 97161; 97165; 99212; 99285; A9270; C8929; G0378; G0463; J1939; J2248; Q9957

== ENCOUNTER 2025-01-11 10:26 | Outpatient (NON) | payer MEDICARE, SELFPAY ==
--- OUTSIDE RECORDS SUMMARY | 2025-01-11 10:50 | XMS_ITS | Clinical Summary ---
Author Organization [facility] Care Team Providers Care Biodiesel Engineering Manager Name Role Phone Unavailable Primary Care Provider Unavailabl e Social History Tobacco Use Types Packs/Day Years Used Date Smoking Tobacco: Never Assessed Comments Unknown Sex and Gender Information Value Date Recorded Sex Assigned at Not on file Legal Sex Female 11:28 PM CDT Gender Identity Not on file Sexual Orientation Not on file Plan of Treatment Not on file
--- OUTSIDE RECORDS SUMMARY | 2025-01-11 10:50 | XMS_ITS | Encounter Summary ---
Author Organization [facility] Address [address] [place] [address] Care Team Providers Care Fitness Management Director Name Role Phone Darci Downey MD Primary Care Provider Encounter Details Date Type Department Care Team (Late st Contact Info) Description 05/30/2023 Chart Note [facility] EAR, NOSE AND THROAT HOLLIE Alea [facility] [address] [address] [address] [place] [address] Sri Rahman RMA Social History [...] documented as of this encounter Care Teams Fitness Management Director Relationship Specialty Start Date End Date Darci Downey MD [address] [place] [address] PCP - General Family Practice 04/23/23 06/15/23 documented as of this encounter
--- OUTSIDE RECORDS SUMMARY | 2025-01-11 10:50 | XMS_ITS | Clinical Summary ---
Author Organization [facility] Address [address] [place] [address] Phone Care Team Providers Care High School Computer Science Teacher Name Role Phone Unavailable Primary Care Provider [...] Comments Blood Pressure 122/59 06/16/2023 11:23 AM UNDERWEAR FINISHER Pulse 93 06/16/2023 11:23 AM UNDERWEAR FINISHER Temperature 36.8 C (98.2 F) 06/16/2023 11:23 AM UNDERWEAR FINISHER Respiratory Rate 29 06/16/2023 4:44 PM UNDERWEAR FINISHER Oxygen Saturation 98% 06/16/2023 4:44 PM UNDERWEAR FINISHER Inhaled Oxygen Concentration - - Weight 227.3 kg (501 lb) 06/16/2023 4:57 AM UNDERWEAR FINISHER Height 157.5 cm (5' 2) 04/29/2023 12:56 AM CDT Body Mass Index 91.63 04/29/2023 12:56 AM CDT Plan of Treatment Health Maintenance Due Date Last Done Comments DIABETES ANNUAL FOOT EXAM 1991 DIABETES ANNUAL [...] 5.1 <5.7 % 04/14/2023 11:24 PM CDT [facility] EST. AVG GLUCOSE, A1C 100 mg/dL 04/14/2023 11:24 PM CDT [facility] Blood Venipuncture / Unknown 04/14/2023 10:51 PM CDT 04/14/2023 11:06 PM CDT Narrative [facility] - 04/14/2023 11:24 PM CDT HGB A1C INTERPRETATION NORMAL: <5.7% PRE-DIABETES: 5.7 - 6.4% DIABETES: 6.5% OR GREATER us Anjel Dorsey DO CHEMISTRY ORDERABLES Final Res ult [facility] [place] [facility] CLIA# [id number] [address] [place] [address] from Last 3 Months or Most Recently Relevant to Health Maintenance Insurance RX [employer] RX Member Subscriber Plan / Payer (Ef fective 2023-Present) Name:Noemi Nicole Relation to Subscriber:Self Name:BonnieNoemi Subscriber ID:Not on file Payer ID:Not on file Group ID:[id number] Type:RX Medicare Part D Address: [address] [employer] PLANS (INTERNAL) [facility] Internal Plans Advance Directives For more information, please contact: [phone] * Full Code (Latest Code Status on File) Date Activated Date Inactivated Comments 04/29/2023 1:22 AM 06/16/2023 7:57 PM * Full Code Date Activated Date Inactivated Comments 04/14/2023 7:48 PM 04/28/2023 8:53 PM
--- OUTSIDE RECORDS SUMMARY | 2025-01-11 10:50 | XMS_ITS | Clinical Summary ---
Author Organization [facility] Address [address] [place] [address] Care Team Providers Care Tire Balancer Name Role Phone Laurel Lr Primary Care Provider [phone] Allergies Active Allergy Reactions Criticality Noted Date [...] Comments Blood Pressure 121/58 09/23/2023 12:26 PM REAL ESTATE CLOSER Pulse 87 09/23/2023 12:26 PM REAL ESTATE CLOSER Temperature 35.9 C (96.6 F) 09/23/2023 7:40 AM REAL ESTATE CLOSER Respiratory Rate 18 09/23/2023 12:26 PM REAL ESTATE CLOSER Oxygen Saturation 99% 09/23/2023 7:58 AM REAL ESTATE CLOSER Inhaled Oxygen Concentration - - Weight 166.9 kg (368 lb) 09/22/2023 4:00 AM REAL ESTATE CLOSER Height 157.5 cm (5' 2) 07/14/2023 2:15 AM REAL ESTATE CLOSER Body Mass Index 67.31 07/14/2023 2:15 AM REAL ESTATE CLOSER Plan of Treatment Health Maintenance Due Date Last Done Comments CT Colonography 1973 Colonoscopy 1973 Colorectal Cancer Screening 1973 FIT-DNA (Cologuard) 1973 FIT 1973 FOBT 1973 HPV/PAP 1973 Sigmoidoscopy 1973 Annual Visit Topic 1974 MMR Vaccines (1 of 1 - Stand maryjo series) 1974 Hepatitis C Screening 1991 DTaP/Tdap/Td Vaccines (1 - Tdap) 02/20/1992 Hepatitis B Vaccines (1 of 3 - 19+ 3-dose series) 02/20/1992 Pap Smear 1994 Cervical Cancer Screening 2003 HPV/Cotest 2003 HPV 2003 Mammogram 2013 HIB Vaccines Aged Out No longer eligi [...] have received informed consent. Yes Care Teams Tire Balancer Relationship Specialty Start Date End Date Laurel Lr [address] [place] [address] PCP - General 06/17/23
--- OUTSIDE RECORDS SUMMARY | 2025-01-11 10:50 | XMS_ITS | Clinical Summary ---
Author Organization [facility] Address [address] [place] [address] Care Team Providers Care Supply Coordinator Name Role Phone Unavailable Primary Care Provider Unavailabl e Source Comments [facility],non-owned Affiliates and Associated Physician Practices is amultiple site organization consisting of ambulatory clinics and hospital sitesin [place], [place], [place] and [place]. This disclosure is being madepursuant to the Care Everywhere program and may not contain all information available regarding this patient. Last updated 18.[facility] Allergies No known active allergies Social History [...] Comments Blood Pressure 111/50 07/25/2023 3:20 PM HEEL REDUCER Pulse 80 07/25/2023 1:54 PM HEEL REDUCER Temperature 36.7 C (98 F) 07/25/2023 1:54 PM HEEL REDUCER Respiratory Rate 16 07/25/2023 1:54 PM HEEL REDUCER Oxygen Saturation 100% 07/25/2023 3:00 PM HEEL REDUCER Inhaled Oxygen Concentration 60% 07/25/2023 1 :15 PM HEEL REDUCER Weight - - Height - - Body [...] Date Last Indicated MRSA 07/21/2023 07/21/2023 Insurance [facility] MANAGED MEDICARE ADV
[2025-01-11 10:59] LABS: Hemoglobin A1C 6.6 % (<5.7)
[2025-01-11 11:04] LABS: Alanine Aminotransferase 24 U/L (6-35); Albumin Level 3.7 g/dL (3.5-5.1); Alkaline Phosphatase 105 U/L (38-126); Anion Gap 6 mmol/L (4-12); Aspartate Amino Transferase 37 U/L (14-36); Bilirubin,Total 0.6 mg/dL (0.2-1.3); Blood Urea Nitrogen 37 mg/dL (7-17); Calcium 8.5 mg/dL (8.4-10.2); Carbon Dioxide 29 mmol/L (22-30); Chloride 105 mmol/L (98-107); Estimated Glomerular Filt Rate 38; Glucose 132 mg/dL (65-110); Osmolality Calculated 300 mOsm/kg (285-295); Potassium 3.9 mmol/L (3.4-5.0); Sodium 140 mmol/L (137-145); Total Protein 7.5 g/dL (6.3-8.2)
== END 2025-01-11 10:27 | disposition home or self-care (01) ==
LOC: CHSHH 10:28
PROVIDERS: PCP Family Medicine; Visit Provider Family Medicine
DX: E55.9 Vitamin D deficiency, unspecified (principal); E11.9 Type 2 diabetes mellitus without complications; E03.9 Hypothyroidism, unspecified
CPT/HCPCS: 36415; 80053; 82306; 83036; 84443

== ENCOUNTER 2025-05-12 11:38 | Outpatient (CLI) | payer OTHER, MEDICARE, SELFPAY ==
[2025-05-12 11:49] LABS: Hematocrit 45.4 % (35.0-49.0); Hemoglobin 14.4 g/dL (12.0-15.0); Immature Granulocyte Percent A 0.3 % (0.0-0.0); Lymphocytes Absolute Auto 1.29 K/mm3 (1.10-4.50); Mean Corpuscular HGB Conc 31.7 g/dL (32-36); Mean Corpuscular Hemoglobin 29.1 pg (27.0-31.0); Mean Corpuscular Volume 91.7 fL (78.0-102.0); Nucleated Red Blood Cells Absolute Auto 0.00 K/mm3 (0.00-0.00); Nucleated Red Blood Cells Perc 0.0 % (0-0.0); Platelet Count Result 164 K/mm3 (150-420); Red Blood Count 4.95 M/mm3 (4.20-5.40); White Blood Count 6.4 K/mm3 (4.8-10.8)
--- OUTSIDE RECORDS SUMMARY | 2025-05-12 11:59 | XMS_ITS | Clinical Summary ---
Author Organization [facility] Address [address] [place] [address] Phone Care Team Providers Care Meat Hanger Name Role Phone Unavailable Unavailable Unavailable Reason [...] Out Time Diagnosis GENERAL OFFICE VISIT ARELY WEBBERPSYCHTUAN SHELDON 8 1:30PM 2:07PM Clinical Notes Includes: Clinical Notes from this encounter No Clinical Notes Recorded
--- OUTSIDE RECORDS SUMMARY | 2025-05-12 11:59 | XMS_ITS | Clinical Summary ---
Author Organization [facility] Address [address] [place] [address] Phone Care Team Providers Care Wheel Of Fortune Dealer Name Role Phone Unavailable Unavailable Unavailable Reason [...]
--- OUTSIDE RECORDS SUMMARY | 2025-05-12 12:00 | XMS_ITS | Clinical Summary ---
Author Organization [facility] Address [address] [place] [address] Care Team Providers Care Transit Man Name Role Phone Unavailable Primary Care Provider Unavailabl e Source Comments [facility],non-owned Affiliates and Associated Physician Practices is amultiple site organization consisting of ambulatory clinics and hospital sitesin [place], [place], [place] and [place]. This disclosure is being madepursuant to the Care Everywhere program and may not contain all information available regarding this patient. Last updated 18.[facility] [employer] Allergies No known active allergies Social History [...] Comments Blood Pressure 111/50 07/25/2023 3:20 PM SLATER APPRENTICE Pulse 80 07/25/2023 1:54 PM SLATER APPRENTICE Temperature 36.7 C (98 F) 07/25/2023 1:54 PM SLATER APPRENTICE Respiratory Rate 16 07/25/2023 1:54 PM SLATER APPRENTICE Oxygen Saturation 100% 07/25/2023 3:00 PM SLATER APPRENTICE Inhaled Oxygen Concentration 60% 07/25/2023 1 :15 PM SLATER APPRENTICE Weight - - Height - - Body [...] - COLON CA SCREENING 1973 MAMMOGRAM 1973 HIV SCREENING 02/20/1988 HEPATITIS C SCREENING 02/15/1991 DTAP/TDAP/TD VACCINES (1 - Tdap) 02/20/1992 HEPATITIS B VACCINE (1 of 3 - 19+ 3-dose series) 02/20/1992 PAP SMEAR 1994 PNEUMOCOCCAL VACCINE 50+ (1 of 1 - PCV) 2023 ZOSTER VACCINE (1 of 2) 2023 DEPRESSION SCREENING 08/11/2024 MEDICARE AWV CALENDAR YEAR 2024 COVID-19 VACCINE (1 - season) 2025 INFLUENZA VACCINE (#1) 2025 LIPID TESTING 06/16/2028 06/16/2023, 12/2022, 06/14/2023, [...] Date Last Indicated MRSA 07/21/2023 07/21/2023 Insurance [facility] MANAGED MEDICARE ADV
--- OUTSIDE RECORDS SUMMARY | 2025-05-12 12:00 | XMS_ITS | Clinical Summary ---
Author Organization [facility] Care Team Providers Care Digital Production Operator Name Role Phone Unavailable Primary Care Provider [...]
--- OUTSIDE RECORDS SUMMARY | 2025-05-12 12:00 | XMS_ITS | Clinical Summary ---
Author Organization [facility] Address [address] [place] [address] Phone Care Team Providers Care Flatbed Owner Operator Name Role Phone Unavailable Unavailable Unavailable Reason [...] GENERAL OFFICE VISIT ARELY MCKEON-PSYCHIA TRY 8 2:23PM 4:11PM Clinical Notes Includes: Clinical Notes from this encounter No Clinical Notes Recorded
--- OUTSIDE RECORDS SUMMARY | 2025-05-12 12:00 | XMS_ITS | Encounter Summary ---
Author Organization [facility] Address [address] [place] [address] Care Team Providers Care Evaporator Operator Name Role Phone Darci Downey MD Primary Care Provider [phone] Encounter Details Date Type Department Care Team (Late st Contact Info) Description 05/30/2023 Chart Note [facility] EAR, NOSE AND THROAT HOLLIE Alea [facility] [address] [place] [address] [address] [place] [address] Sri Rahman RMA Social History [...] documented as of this encounter Care Teams Evaporator Operator Relationship Specialty Start Date End Date Darci Downey MD [address] [place] [address] PCP - General Family Practice 04/23/23 06/15/23 documented as of this encounter
--- OUTSIDE RECORDS SUMMARY | 2025-05-12 12:00 | XMS_ITS | Clinical Summary ---
Author Organization [facility] Address [address] [place] [address] Phone Care Team Providers Care Counseling Case Manager Name Role Phone Unavailable Unavailable Unavailable Reason [...]
--- OUTSIDE RECORDS SUMMARY | 2025-05-12 12:00 | XMS_ITS ---
Author Organization [facility] Care Team Providers Care Ethernet Network Architect Name Role Phone Darci Downey Unavailable Unavailable Tamara Rios Unavailable Unavailable Allergies and adverse reactions Code CodeSystem Substance Reaction Severity StartDate Concern Status Sulfamethoxazole /Trim ethoprim Unknown 03/26/[address] Sulfa Antibiotics Unknown 03/26/2023 active Care Team Name Role Address Phone Organization Dates Darci Downey PCP [address] [place] [address], [place], [facility], [facility] (Office): [facility] 04/03/2023 - 04/08/2023 Tamara Rios [address], [place], [facility] [place] [facility] (Office): [facility] 04/03/2023 - 04/08/2023 Problems Problem # Description Date of onset Resolved Date Code CodeSystem Concern Status 1 ACUTE AND CHRONIC RESPIRATORY FAILURE WITH HYPERCAPNIA [address] active 2 ACUTE KIDNEY FAILURE, UNSPECIFIED [address] active 3 ANEMIA IN CHRONIC KIDNEY DISEASE [address] active 4 ANXIETY DISORDER, UNSPECIFIED [address] active 5 BODY MASS INDEX [BMI] 70 OR GREATER, ADULT [address] active 6 [address]IOMEGALY [address] active 7 CELLULITIS OF ABDOMINAL WALL [address] active 8 CHRONIC COMBINED SYSTOLIC (CONGESTIVE) AND DIASTOLIC (CONGESTIVE) HEART FAILURE [address] active 9 CHRONIC PULMONARY EDEMA [address] active 10 DEPRESSION, UNSPECIFIED [address] active 11 DIABETES MELLITUS DUE TO UNDERLYING CONDITION WITH HYPOGLYCEMIA WITHOUT COMA [address] active 12 ERYTHEMA INTERTRIGO [address] active 13 ESSENTIAL (PRIMARY) HYPERTENSION [address] active 14 HY[address]KALEMIA [address] active 15 HYPOTHYROIDISM, UNSPECIFIED [address] active 16 IRRITABLE BOWEL SYNDROME WITH DIARRHEA [address] active 17 LYMPHEDEMA, NOT ELSEWHERE CLASSIFIED [address] active 18 MAGNESIUM DEFICIENCY [address] active 19 METHICILLIN RESISTANT STAPHYLOCOCCUS AUREUS INFECTION THE CAUSE OF DISEASES CLASSIFIED ELSEWHERE [address] active 20 MORBID (SEVERE) OBESITY WITH ALVEOLAR HYPOVENTILATION [address] active 21 MUSCLE WEAKNESS (GENERALIZED) [address] active 22 OBSTRUCTIVE SLEEP APNEA (ADULT) (PEDIATRIC) [address] active 23 OTHER ABNORMALITIES OF GAIT AND MOBILITY [address] active 24 OTHER IDIOPATHIC PERIPHERAL AUTONOMIC NEUROPATHY [address] active 25 POLYP OF COLON [address] active 26 PULMONARY HYPERTENSION, UNSPECIFIED [address] active 27 REPEATED FALLS [address] active 28 SHORTNESS OF BREATH [address] active 29 THIAMINE DEFICIENCY, UNSPECIFIED [address] active 30 UNSPECIFIED OPEN WOUND OF ABDOMINAL WALL, LEFT LOWER QUADRANT WITHOUT PENETRATION INTO PERITONEAL CAVITY, SUBSEQUENT ENCOUNTER [address] active 31 VITAMIN D DEFICIENCY, UNSPECIFIED [address] active Reason for Referral No Reasons for Referral Entered Social History Social History Observation Description Start Date End Date Code Code System Current Smoking Status Tobacco smoking consumption unknown 355381281 SNOMED CT Sex Assigned At Female 1975 01458-2 [facility] Gender Identity Sexual Orientation Vital Signs Code Code System Vitals Name Values and Units Timing Information 9279-1 [facility] Respiratory Rate Value=16.0 Units=/m in 04/08/2023 8462-4 [facility] Blood Pressure-Diastolic Value=64 Un its=mmHg 04/08/2023 8480-6 [facility] Blood Pressure-Systolic Xpxyj=822 Un its=mmHg 04/08/2023 8310-5 [facility] Body Temperature Value=98.5 Units= F 04/08/2023 8867-4 [facility] Heart rate Value=78.0 Units=/min 2339-0 [facility] Blood Sugar Cpqor=728.0 Units=mg/dL 04/08/2023 62905-5 [facility] O2 % BldC Oximetry Value=91.0 Units= % 04/08/2023 13328-2 [facility] Pain Level Value=0.0 04/08/2023 8302-2 [facility] Height Value=63.0 Units=Inches 04/03/2023 32702-4 [facility] Weight Xwdfe=915.0 Units=Lbs
--- OUTSIDE RECORDS SUMMARY | 2025-05-12 12:00 | XMS_ITS | Clinical Summary ---
Author Organization [facility] Address [address] [place] [address] Care Team Providers Care Weight Shifter Name Role Phone Laurel Lr Primary Care Provider [phone] Allergies Active Allergy Reactions Criticality Noted Date [...] Comments Blood Pressure 121/58 09/23/2023 12:26 PM COOKIE BREAKER Pulse 87 09/23/2023 12:26 PM COOKIE BREAKER Temperature 35.9 C (96.6 F) 09/23/2023 7:40 AM COOKIE BREAKER Respiratory Rate 18 09/23/2023 12:26 PM COOKIE BREAKER Oxygen Saturation 99% 09/23/2023 7:58 AM COOKIE BREAKER Inhaled Oxygen Concentration - - Weight 166.9 kg (368 lb) 09/22/2023 4:00 AM COOKIE BREAKER Height 157.5 cm (5' 2) 07/14/2023 2:15 AM COOKIE BREAKER Body Mass Index 67.31 07/14/2023 2:15 AM COOKIE BREAKER Plan of Treatment Health Maintenance Due Date [...] have received informed consent. Yes Care Teams Weight Shifter Relationship Specialty Start Date End Date Laurel Lr [address] [place] [address] PCP - General 06/17/23
--- OUTSIDE RECORDS SUMMARY | 2025-05-12 12:00 | XMS_ITS | Clinical Summary ---
Author Organization [facility] Address [address] [place] [address] Phone Care Team Providers Care Junior Marketing Associate Name Role Phone Unavailable Primary Care [...] Comments Blood Pressure 122/59 06/16/2023 11:23 AM RECORD CHANGER TESTER Pulse 93 06/16/2023 11:23 AM RECORD CHANGER TESTER Temperature 36.8 C (98.2 F) 06/16/2023 11:23 AM RECORD CHANGER TESTER Respiratory Rate 29 06/16/2023 4:44 PM RECORD CHANGER TESTER Oxygen Saturation 98% 06/16/2023 4:44 PM RECORD CHANGER TESTER Inhaled Oxygen Concentration - - Weight 227.3 kg (501 lb) 06/16/2023 4:57 AM RECORD CHANGER TESTER Height 157.5 cm (5' 2) 04/29/2023 12:56 [...] MONTHS 10/13/2023 04/14/2023, 11/2022 INFLUENZA VACCINE (#1) 2025 Procedures Procedure Name Priority Date/Time Associated Diagnosis Comments HEMOGLOBIN A1C Routine 04/14/2023 10:51 PM CDT from Last 3 Months or Most Recently Relevant to Health Maintenance Results * HEMOGLOBIN A1C (04/14/2023 10:51 PM CDT) HEMOGLOBIN A1C 5.1 <5.7 % 04/14/2023 11:24 PM CDT [facility] EST. AVG GLUCOSE, A1C 100 mg/dL 04/14/2023 11:24 PM CDT [facility] Blood Venipuncture / Unknown 04/14/2023 10:51 PM CDT 04/14/2023 11:06 PM CDT Narrative [facility] - 04/14/2023 11:24 PM CDT HGB A1C INTERPRETATION NORMAL: <5.7% PRE-DIABETES: 5.7 - 6.4% DIABETES: 6.5% OR GREATER us Anjel Dorsey DO CHEMISTRY ORDERABLES Final Res ult [facility] [employer] [facility] CLIA# [id number] [address] [place] [address] from Last 3 Months or Most Recently Relevant to Health Maintenance Insurance RX [employer] Member Subscriber Plan / Payer (Ef fective 2023-Present) Name:Noemi Nicole Relation to Subscriber:Self Name:BonnieNoemi Subscriber ID:Not on file Payer ID:Not on file Group ID:[id number] Type:RX Medicare Part D Address: [address] [employer] PL[employer] (INTERNAL) [facility] Advance Directives For more information, please contact: [phone] * Full Code (Latest Code Status on File) Date Activated Date Inactivated Comments 04/29/2023 1:22 AM 06/16/2023 7:57 PM * Full Code Date Activated Date Inactivated Comments 04/14/2023 7:48 PM 04/28/2023 8:53 PM
--- OUTSIDE RECORDS SUMMARY | 2025-05-12 12:00 | XMS_ITS ---
Care Plan - [facility] Created on: May 12, 2025 MAXIMILIAN ALEJANDRA : 1975 Sex: Female Author Organization [facility] Address [address] [place] [address] Phone Care Team Providers Care Resort Manager Name Role Phone Unavailable Unavailable Unavailable
--- OUTSIDE RECORDS SUMMARY | 2025-05-12 12:00 | XMS_ITS | Clinical Summary ---
Author Organization [facility] Address [address] [place] [address] Phone Care Team Providers Care Community Service Aide Name Role Phone Unavailable Unavailable Unavailable Reason [...]
--- OUTSIDE RECORDS SUMMARY | 2025-05-12 12:00 | XMS_ITS | Clinical Summary ---
Author Organization [facility] Address [address] [place] [address] Care Team Providers Care Unix Architect Name Role Phone Unavailable Primary Care Provider Unavailabl e Social History Tobacco Use Types Packs/Day Years Used Date Smoking Tobacco: Never Assessed Comments Unknown Sex and Gender Information Value Date Recorded Sex Assigned at Not on file Legal Sex Female 5:56 PM GINNER Gender Identity Not on file Sexual Orientation [...] Screening with HPV 2003 Mammogram Screening 2013 Pneumococcal Vaccine: 50+ Ye ars (1 of 1 - PCV) 2023 Zoster Vaccines (1 of 2) 2023 COVID-19 Vaccine ( - 2023-2 5 season) 2025 Meningococcal B Vaccine Aged Out No l onger eligible based on patient's age to complete this topic Meningococcal Vaccine Aged Out No jose l brenda eligible based on patient's age to complete this topic RSV Immunizations Under 20 Months Aged Out No longer eligible based on patient's age to complete this topic
[2025-05-12 12:01] LABS: Alanine Aminotransferase 39 U/L (6-35); Albumin Level 4.3 g/dL (3.5-5.1); Alkaline Phosphatase 116 U/L (38-126); Anion Gap 12 mmol/L (4-12); Aspartate Amino Transferase 43 U/L (14-36); Bilirubin,Total 0.9 mg/dL (0.2-1.3); Blood Urea Nitrogen 39 mg/dL (7-17); Calcium 9.6 mg/dL (8.4-10.2); Carbon Dioxide 28 mmol/L (22-30); Chloride 103 mmol/L (98-107); Cholesterol 183 mg/dL (0-200); Estimated Glomerular Filt Rate 30; Glucose 179 mg/dL (65-110); HDL Direct 34 mg/dL; Osmolality Calculated 309 mOsm/kg (285-295); Potassium 4.3 mmol/L (3.4-5.0); Sodium 143 mmol/L (137-145); Total Protein 10.1 g/dL (6.3-8.2); Triglycerides 194 mg/dL (<150)
[2025-05-12 12:02] LABS: Hemoglobin A1C 6.9 % (<5.7)
[2025-05-12 12:48] LABS: Thyroid Stimulating Hormone Reflex 5.040 uIU/mL (0.465-4.68)
[2025-05-12 13:08] LABS: Vitamin B12 540.0 pg/mL (239-931)
[2025-05-12 13:24] LABS: Free T4 Free Thyroxine Reflex 1.41 ng/dL (0.78-2.19)
== END 2025-05-12 11:39 | disposition home or self-care (01) ==
LOC: CHSLAB 11:41
PROVIDERS: PCP Family Medicine; Visit Provider Family Medicine
DX: E11.9 Type 2 diabetes mellitus without complications (principal); E53.8 Deficiency of other specified B group vitamins; Z79.01 Long term (current) use of 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; E03.9 Hypothyroidism, unspecified
CPT/HCPCS: 36415; 80053; 80061; 82607; 82746; 83036; 84439; 84443; 85025